=== PATIENT | male | born 1950 | race Caucasian/White ===

== ENCOUNTER 2017-03-11 21:40 | Emergency (ER) | payer MEDICARE, OTHER ==
[2017-03-11] MEDS ORDERED: Ketorolac 30 MG/ML SDV IVPUSH ONE (22:04)
[2017-03-11] MEDS ORDERED: Sodium Chloride 0.9% 10 ML Syringe FLUSH PRN (22:04)
[2017-03-11] MEDS ORDERED: Sodium Chloride 0.9% 2.5 ML Syringe FLUSH PRN (22:04)
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
[2017-03-11 23:08] LABS: CHLORIDE,CL 93 mmol/L (98-110); SODIUM,NA 134 mmol/L (136-146)
[2017-03-11] MEDS ORDERED: Iopamidol 755 Mg/ML 100 ML Bottle IVPUSH STA (23:22)
[2017-03-12 02:34] VITALS: BP 105/57
--- NOTE | 2017-03-13 11:04 | CR ---
EXAM DATE: 03/11/17 PATIENT'S AGE: 67 Patient: COURTNEY PAEZ Facility: [place], [place] Site . Site : 1950 Study: XRay Chest [id number]/15/2017 10:37:22 PM Ordering Physician: Barb May Final Report: INDICATION: Shortness of breath TECHNIQUE: Chest radiograph 1 view COMPARISON: None FINDINGS: The study is moderately limited by body habitus. Cardiovascular and mediastinum: The heart silhouette is normal in size and morphology. There is a convex density along the right paraspinal region at the level of the diaphragm which may represent a hiatal hernia. Lungs and pleural spaces: Minimal right basilar atelectasis is noted. A trace right pleural effusion may be present. No pneumothorax is identified. Bones and soft tissues: ORIF of multiple right-sided ribs are present with numerous metallic plates and overlying skin dain. IMPRESSION: 1. Minimal right basilar atelectasis is noted. A trace right pleural effusion may be present. 2. There is a convex density along the right paraspinal region at the level of the diaphragm which may represent a hiatal hernia. Dictated by Manuel Duffy MD @ 03/11/2017 11:02:57 PM Dictated by: Manuel Duffy MD @ 03/11/2017 23:03:02 (Electronic Signature) Report Signed by Proxy and Original Signed Document filed in the Medical Record. [facility]
--- NOTE | 2017-03-13 11:10 | CT ---
EXAM DATE: 03/11/17 PATIENT'S AGE: 67 Patient: COURTNEY PAEZ Facility: [place], [place] Site . Site : 1950 Study: CT Chest Angio PE study [id number]/16/2017 12:03:09 AM Ordering Physician: Barb May Final Report: INDICATION: Shortness of breath TECHNIQUE: CT chest pulmonary angiogram acquired with i.v. 47 mL and 45 mL Isovue 370 during two separate attempts. Coronal and sagittal reformats were obtained. COMPARISON: None FINDINGS: Cardiovascular structures: Trace pneumomediastinum is noted. The pulmonary arteries are unremarkable in appearance with no evidence of acute pulmonary embolism. The heart has an unremarkable appearance and size. No sign of aneurysm or dissection in the thoracic aorta. Mild coronary artery atherosclerotic calcifications are noted. Mediastinum and mitchell: There is a 1.2 cm AP window lymph node seen. Lungs: Mild right basilar compresses and adhesive atelectasis seen. Pleura and pericardium: A small gas collection is seen within the right pleural space on image 44. Mild loculated right pleural effusion seen. No significant pericardial effusion is present. Chest wall and axilla: Fluid collection over the right posterior chest wall is noted containing a punctate focus of gas. The fluid collection measures 10.2 x 5.6 cm in diameter and may communicate with the right pleural space and has a thin rim of peripheral enhancement seen. No mass or adenopathy seen. Subcutaneous emphysema is seen along the anterior chest wall. Bones: ORIF of multiple right-sided rib fractures with metallic plate is noted. Upper abdomen: Moderate fatty infiltration of the visualized liver seen. IMPRESSION: 1. No CT evidence of pulmonary embolism seen. 2. Mild loculated right pleural effusion seen. 3. There is a fluid collection containing a small focus of gas along the right posterolateral chest wall. This may represent a hematoma and communication with the adjacent right pleural space cannot be excluded. Clinical correlation is recommended to exclude infection of the fluid collection given the thin rim enhancement. 4. Mild mediastinal adenopathy present. 5. Mild pneumomediastinum and chest wall subcutaneous emphysema is seen which may be related to recent surgery. Dictated by Manuel Duffy MD @ 03/12/2017 12:20:11 AM Dictated by: Manuel Duffy MD @ 03/12/2017 00:20:28 (Electronic Signature) Report Signed by Proxy and Original Signed Document filed in the Medical Record. [facility]
== END 2017-03-12 01:10 | disposition home or self-care (01) ==
LOC: MW.ED 21:40
DX: J90 Pleural effusion, not elsewhere classified (principal); Z79.899 Other long term (current) drug therapy
CPT/HCPCS: 36415; 71010; 71275; 80053; 85025; 85610; 93005; 96374; 99285; J1885; Q9967; 99284

== ENCOUNTER 2017-04-21 09:22 | Emergency (ER) | payer MEDICARE, OTHER ==
[2017-04-21] MEDS ORDERED: Lidocaine 1% 20 ML MDV INJECT ONE (09:32)
--- NOTE | 2017-04-21 09:51 | EDM.PDOC ---
ED HPI GENERAL MEDICAL PROBLEM - General Chief Complaint: Head Injury Stated Complaint: UNK Time Seen by Provider: 04/21/17 09:42 - History of Present Illness INITIAL COMMENTS - FREE TEXT/NARRATIVE: HISTORY AND PHYSICAL: History of present illness: Patient is a 67-year-old white male with an extensive past medical history of present status post fall which she sustained a skin tear to his left upper extremity and a laceration to his left forehead there was no loss of consciousness there is no head or neck pain or trauma otherwise he denies chest pain palpitations and this is reported to be a pure mechanical fall. Review of systems: As per history of present illness and below otherwise all systems reviewed and negative. Past medical history: As per history of present illness and as reviewed below otherwise noncontributory. Surgical history: As per history of present illness and as reviewed below otherwise noncontributory. Social history: No reported history of drug or alcohol abuse. Family history: As per history of present illness and as reviewed below otherwise noncontributory. Physical exam: HEENT: Approximately 2.5 cm moderate to irregular laceration of left forehead, normocephalic, pupils reactive, negative for conjunctival pallor or scleral icterus, mucous membranes moist, throat clear, neck supple, nontender, trachea midline. Lungs: Clear to auscultation, breath sounds equal bilaterally, chest nontender. Heart: S1S2, regular, negative for clicks, rubs, or JVD. Abdomen: Soft, nondistended, nontender. Negative for masses or hepatosplenomegaly. Negative for costovertebral tenderness. Pelvis: Stable nontender. Genitourinary: Deferred. Rectal: Deferred. Extremities: Approximately 7 cm skin tear noted to his left proximal forearm, negative for cords or calf pain. Neurovascular unremarkable. Neuro: Awake, alert, follows commands moves all extremities at baseline per family limited but grossly nonfocal exam Diagnostics: CT brain Therapeutics: Patient was anesthetized 1% lidocaine irrigated with copious 0.9 normal saline and closed with 5-zero absorbable suture skin tear was cleansed Steri-Stripped and dressed appropriately Impression: #1 observation status post fall #2 head injury with facial laceration #3 skin tear left upper extremity Definitive disposition and diagnosis as appropriate pending reevaluation and review of above. Generalized Pain Score (Numeric/FACES): 2 - Related Data Allergies Allergy/AdvReac Type Severity Reaction Status Date / Time No Known Allergies Allergy Verified 04/21/17 09:24 Home Meds: Home Meds Fluticasone/Salmeterol [Advair 250-50 Diskus] 1 each IH BID 03/11/17 [History] Ipratropium/Albuterol Sulfate [Combivent Respimat Inhal [place]] 20 mcg IH ASDIRECTED 03/11/17 [History] Tiotropium [Spiriva HandiHaler] 18 mcg INH DAILY 03/11/17 [History] atorvaSTATin [Lipitor] 20 mg PO BEDTIME 03/11/17 [History] Acetaminophen [Tylenol Extra Strength] 100 mg PO BID PRN 04/21/17 [History] Amiodarone HCl [Pacerone] 200 mg PO BID 04/21/17 [History] Cyanocobalamin (Vitamin B12) [Vitamin B12] 1,000 mcg PO DAILY 04/21/17 [History] Fluticasone/Salmeterol [Advair Diskus 250-50] 1 each IH BID 04/21/17 [History] Magnesium Oxide 400 mg PO DAILY 04/21/17 [History] Metoprolol Tartrate 12.5 mg PO BID 04/21/17 [History] Olmesartan [Benicar] 20 mg PO DAILY 04/21/17 [History] traMADol [Ultram] 50 mg PO Q6HR PRN 04/21/17 [History] Past Medical History HEENT History: Reports: Cataract, Impaired Vision Cardiovascular History: Reports: High Cholesterol, Hypertension Respiratory History: Reports: COPD, Pneumothorax, SOB Neurological History: Reports: Head Trauma, Neuropathy, Peripheral Psychiatric History: Reports: None Endocrine/Metabolic History: Reports: Obesity/BMI 30+ Hematologic History: Reports: None Immunologic History: Reports: None Oncologic (Cancer) History: Reports: None - Infectious Disease History Infectious Disease History: Reports: Chicken Pox, Measles, MRSA, Mumps - Past Surgical History Head Surgeries/Procedures: Reports: None Musculoskeletal Surgical History: Reports: Other (See Below) Other Musculoskeletal Surgeries/Procedures:: multiple rib fractures Social & Family History - Family History Family Medical History: Noncontributory - Tobacco Use Smoking Status *Q: Former Smoker Used Tobacco, but Quit: Yes Month Tobacco Last Used: 1970 - Caffeine Use Caffeine Use: Reports: Coffee - Recreational Drug Use Recreational Drug Use: No ED ROS GENERAL - Review of Systems Review Of Systems: ROS reveals no pertinent complaints other than HPI. ED EXAM, HEAD INJURY - Physical Exam Exam: See Below (See dictation) Course - Vital Signs Last Recorded V/S: Last Vital Signs Temp 37.0 C 04/21/17 09:21 Pulse 81 04/21/17 10:15 Resp 17 04/21/17 10:15 BP 139/85 04/21/17 10:15 Pulse Ox 92 L 04/21/17 10:15 - Orders/Labs/Meds Meds: Medications Discontinued Medications Generic Name Dose Route Start Last Admin Trade Name Frerhoda PRN Reason Stop Dose Admin Lidocaine HCl 20 ml 04/21/17 09:32 04/21/17 10:16 Xylocaine 1% INJECT 04/21/17 09:33 20 ml ONETIME ONE Administration Departure - Departure Time of Disposition: 11:03 Disposition: Home, Self-Care 01 Condition: good Clinical Impression: Head injury, Laceration, Skin tear - Discharge Information Forms: ED Department Discharge Additional Instructions: The following information is given to patients seen in the emergency department who are being discharged to home. This information is to outline your options for follow-up care. We provide all patients seen in our emergency department with a follow-up referral. The need for follow-up, as well as the timing and circumstances, are variable depending upon the specifics of your emergency department visit. If you don't have a primary care physician on staff, we will provide you with a referral. We always advise you to contact your personal physician following an emergency department visit to inform them of the circumstance of the visit and for follow-up with them and/or the need for any referrals to a consulting specialist. The emergency department will also refer you to a specialist when appropriate. This referral assures that you have the opportunity for followup care with a specialist. All of these measure are taken in an effort to provide you with optimal care, which includes your followup. Under all circumstances we always encourage you to contact your private physician who remains a resource for coordinating your care. When calling for followup care, please make the office aware that this follow-up is from your recent emergency room visit. If for any reason you are refused follow-up, please contact the [facility] emergency department at and asked to speak to the emergency department charge nurse. Followup primary medical doctor one to 2 days return as needed as discussed
--- NOTE | 2017-04-21 10:40 | CT ---
EXAMINATION: Non contrast CT head. Coronal and sagittal reformats. HISTORY: Fall FINDINGS: No evidence of intra or extra axial hemorrhage, mass, midline shift, hydrocephalus or edema. No hypoattenuation changes in the major vascular territories to suggest acute infarct. No abnormal intracranial calcifications are detected. No evidence of substantial vascular calcifica tions. Paranasal sinuses and mastoid air cells are well aerated without substantial findings. Mild left barr praorbital subcutaneous soft tissue swelling. Pituitary fossa appears unremarkable. The orbits and globes are symmetric. Calvarium is intact. No evidence of skull fracture. IMPRESSION: No acute intracranial findings.
[2017-04-21 11:06] VITALS: BP 144/81
== END 2017-04-21 11:18 | disposition home or self-care (01) ==
LOC: MW.ED 09:22
DX: S01.81XA Laceration without foreign body of other part of head, initial encounter (principal); S41.112A Laceration without foreign body of left upper arm, initial encounter; Z91.81 History of falling; I10 Essential (primary) hypertension; E66.9 Obesity, unspecified; G62.9 Polyneuropathy, unspecified; J44.9 Chronic obstructive pulmonary disease, unspecified; E78.00 Pure hypercholesterolemia, unspecified; Z87.891 Personal history of nicotine dependence; Z79.899 Other long term (current) drug therapy; W19.XXXA Unspecified fall, initial encounter
CPT/HCPCS: 12001; 70450; 70450-26; 99282; 99284-25

== ENCOUNTER 2017-04-26 14:50 | Emergency (ER) | payer MEDICARE, OTHER ==
[2017-04-26] MEDS ORDERED: QUEtiapine 25 MG Tab PO ONE (15:20)
--- NOTE | 2017-04-26 15:26 | EDM.PDOC ---
ED HPI GENERAL MEDICAL PROBLEM - General Chief Complaint: Behavioral/Psych Stated Complaint: AMBULANCE Time Seen by Provider: 04/26/17 15:03 - History of Present Illness INITIAL COMMENTS - FREE TEXT/NARRATIVE: HISTORY AND PHYSICAL: History of present illness: Patient is 67-year-old male who presents from longterm having expressed suicidal threats. On arrival here patient is well-known to me acknowledges that he got their attention but does not have any intention of self-harm Review of systems: As per history of present illness and below otherwise all systems reviewed and negative. Past medical history: As per history of present illness and as reviewed below otherwise noncontributory. Surgical history: As per history of present illness and as reviewed below otherwise noncontributory. Social history: No reported history of drug or alcohol abuse. Family history: As per history of present illness and as reviewed below otherwise noncontributory. Physical exam: HEENT: Healing well left forehead from recent fall with laceration and suture normocephalic, pupils reactive, negative for conjunctival pallor or scleral icterus, mucous membranes moist, throat clear, neck supple, nontender, trachea midline. Lungs: Clear to auscultation, breath sounds equal bilaterally, chest nontender. Heart: S1S2, regular, negative for clicks, rubs, or JVD. Abdomen: Soft, nondistended, nontender. Negative for masses or hepatosplenomegaly. Negative for costovertebral tenderness. Pelvis: Stable nontender. Genitourinary: Deferred. Rectal: Deferred. Extremities: Skin tear from prior injury with wound dressing in place negative for cords or calf pain. Neurovascular unremarkable. Neuro: Awake, alert, follows commands moves all extremities Limited but grossly nonfocal exam Diagnostics: None Therapeutics: Seroquel 25 mg by mouth Impression: #1 medical screening exam Definitive disposition and diagnosis as appropriate pending reevaluation and review of above. - Related Data Allergies Allergy/AdvReac Type Severity Reaction Status Date / Time No Known Allergies Allergy Verified 04/26/17 15:04 Home Meds: Home Meds Fluticasone/Salmeterol [Advair 250-50 Diskus] 1 each IH BID 03/11/17 [History] Ipratropium/Albuterol Sulfate [Combivent Respimat Inhal [place]] 20 mcg IH ASDIRECTED 03/11/17 [History] Tiotropium [Spiriva HandiHaler] 18 mcg INH DAILY 03/11/17 [History] atorvaSTATin [Lipitor] 20 mg PO BEDTIME 03/11/17 [History] Acetaminophen [Tylenol Extra Strength] 100 mg PO BID PRN 04/21/17 [History] Amiodarone HCl [Pacerone] 200 mg PO BID 04/21/17 [History] Cyanocobalamin (Vitamin B12) [Vitamin B12] 1,000 mcg PO DAILY 04/21/17 [History] Fluticasone/Salmeterol [Advair Diskus 250-50] 1 each IH BID 04/21/17 [History] Magnesium Oxide 400 mg PO DAILY 04/21/17 [History] Metoprolol Tartrate 12.5 mg PO BID 04/21/17 [History] Olmesartan [Benicar] 20 mg PO DAILY 04/21/17 [History] traMADol [Ultram] 50 mg PO Q6HR PRN 04/21/17 [History] Past Medical History HEENT History: Reports: Cataract, Impaired Vision Cardiovascular History: Reports: High Cholesterol, Hypertension Respiratory History: Reports: COPD, Pneumothorax, SOB Gastrointestinal History: Reports: None Genitourinary History: Reports: None Musculoskeletal History: Reports: None Neurological History: Reports: Head Trauma, Neuropathy, Peripheral Psychiatric History: Reports: None Endocrine/Metabolic History: Reports: Obesity/BMI 30+ Hematologic History: Reports: None Immunologic History: Reports: None Oncologic (Cancer) History: Reports: None Dermatologic History: Reports: None - Infectious Disease History Infectious Disease History: Reports: None - Past Surgical History Head Surgeries/Procedures: Reports: None HEENT Surgical History: Reports: None Cardiovascular Surgical History: Reports: None Respiratory Surgical History: Reports: None GI Surgical History: Reports: None Male Surgical History: Reports: None Endocrine Surgical History: Reports: None Neurological Surgical History: Reports: None Musculoskeletal Surgical History: Reports: Other (See Below) Other Musculoskeletal Surgeries/Procedures:: multiple rib fractures Dermatological Surgical History: Reports: None Social & Family History - Family History Family Medical History: Noncontributory - Tobacco Use Smoking Status *Q: Never Smoker Used Tobacco, but Quit: Yes Month Tobacco Last Used: 1969 Second Hand Smoke Exposure: No - Caffeine Use Caffeine Use: Reports: Coffee - Recreational Drug Use Recreational Drug Use: No ED ROS GENERAL - Review of Systems Review Of Systems: ROS reveals no pertinent complaints other than HPI. ED EXAM, GENERAL - Physical Exam Exam: See Below (See dictation) Course - Vital Signs Text/Narrative:: Discuss case with Dr. Arias and spouse regarding current circumstances at this time all in agreement including the patient to return to longterm with followup with Dr. Arias in a.m. discussion will occur then regarding ultimate disposition and related social and medical issues Last Recorded V/S: Last Vital Signs Temp 36.2 C 04/26/17 15:01 Pulse 78 04/26/17 15:01 Resp 16 04/26/17 15:01 BP 124/70 04/26/17 15:01 Pulse Ox 98 04/26/17 15:01 Departure - Departure Time of Disposition: 15:26 Disposition: Home, Self-Care 01 Condition: good Clinical Impression: Encounter for medical screening examination - Discharge Information Forms: ED Department Discharge Additional Instructions: The following information is given to patients seen in the emergency department who are being discharged to home. This information is to outline your options for follow-up care. We provide all patients seen in our emergency department with a follow-up referral. The need for follow-up, as well as the timing and circumstances, are variable depending upon the specifics of your emergency department visit. If you don't have a primary care physician on staff, we will provide you with a referral. We always advise you to contact your personal physician following an emergency department visit to inform them of the circumstance of the visit and for follow-up with them and/or the need for any referrals to a consulting specialist. The emergency department will also refer you to a specialist when appropriate. This referral assures that you have the opportunity for followup care with a specialist. All of these measure are taken in an effort to provide you with optimal care, which includes your followup. Under all circumstances we always encourage you to contact your private physician who remains a resource for coordinating your care. When calling for followup care, please make the office aware that this follow-up is from your recent emergency room visit. If for any reason you are refused follow-up, please contact the [facility] emergency department at and asked to speak to the emergency department charge nurse. Followup Dr. Arias in a.m. return as needed as discussed
[2017-04-26 15:39] VITALS: BP 119/76
== END 2017-04-26 15:36 | disposition home or self-care (01) ==
LOC: MW.ED 14:50
DX: Z13.9 Encounter for screening, unspecified (principal); I10 Essential (primary) hypertension; E78.00 Pure hypercholesterolemia, unspecified; J44.9 Chronic obstructive pulmonary disease, unspecified; E66.9 Obesity, unspecified; Z68.35 Body mass index [BMI] 35.0-35.9, adult; Z79.899 Other long term (current) drug therapy
CPT/HCPCS: 99284; A9270; 99283

== ENCOUNTER 2017-05-04 21:01 | Inpatient (IN) | payer MEDICARE, OTHER ==
[2017-05-04] MEDS ORDERED: Sodium Chloride 0.9% 1,000 ML IV ONE (21:25)
[2017-05-04] MEDS ORDERED: Acetaminophen 325 MG Tab PO ONE (21:29)
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
[2017-05-04] MEDS ORDERED: Cefepime 2 GM in Premix Bag 1 BAG IV ONE (21:37)
[2017-05-04 22:10] LABS: CHLORIDE,CL 96 mmol/L (98-110); SODIUM,NA 130 mmol/L (136-146)
[2017-05-04] MEDS ORDERED: Vancomycin 1 GM AdvVial ONE (22:14)
[2017-05-04] MEDS ORDERED: Sodium Chloride 0.9% 250 ML ONE (22:16)
[2017-05-05] MEDS: Sodium Chloride 0.9% 1,000 ML IV SCH ×4 (00:27→12:58)
[2017-05-05] MEDS ORDERED: Sodium Chloride 0.9% 1,000 ML IV SCH ×2 (01:30→01:45)
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
[2017-05-05] MEDS ORDERED: Albumin 5% 250 ML IV ONE (03:35)
[2017-05-05] MEDS: Cefepime 2 GM in Premix Bag 1 BAG IV SCH ×2 (09:05→21:39)
[2017-05-05] MEDS ORDERED: Sodium Chloride 0.9% 500 ML IV SCH ×2 (09:30→14:45)
[2017-05-05] MEDS: Heparin Sodium 5,000 Units/ML Vial SUBCUT SCH ×2 (10:06→21:15)
--- NOTE | 2017-05-05 11:09 | CR ---
EXAM DATE: 05/04/17 PATIENT'S AGE: 67 Patient: COURTNEY PAEZ Facility: [place], [place] Site . Site : [id number] Study: XRay Chest [id number]/8/2017 10:20:54 PM Ordering Physician: Reji Tracey Final Report: INDICATION: Fever TECHNIQUE: Chest 1 view. COMPARISON: 03/11/2017 FINDINGS: Cardiovascular and mediastinum: Heart size and vasculature are normal in caliber and appearance. Mediastinum is within normal limits. Lungs and pleural space: Lungs are clear. No sign of infiltrate or mass. No sign of pleural effusion. No pneumothorax. Bones and soft tissues: Multiple right-sided rib plates. IMPRESSION: No evidence for pneumonia. Dictated by Nawaf Agarwal MD @ 05/04/2017 10:36:41 PM Dictated by: Nawaf Agarwal MD @ 05/04/2017 22:36:53 (Electronic Signature) Report Signed by Proxy. [facility]
--- NOTE | 2017-05-05 14:05 | CT ---
CT of the abdomen and pelvis without contrast. HISTORY: Pain TECHNIQUE: Axial CT images were obtained of the abdomen and pelvis without contrast. Coronal and sag ittal reconstructions obtained. FINDINGS: Several right-sided rib fractures are partially visualized with screw and plate hardware. There is a trace right pleural effusion. There is moderate fatty infiltration of the liver. Spleen, adrenal glands, and pancreas appear unrem arkable for noncontrast examination. The gallbladder is contracted. There is no bulky retroperitonea l lymphadenopathy. No abdominal ascites. Vascular calcifications are noted. Tiny fat-containing umbi lical hernia. There are no calcifications noted within the kidneys or along the courses of the ureters bilaterally . There is a cyst within the left kidney. The large and small bowel are normal in caliber without evidence of obstruction. The appendix appear s normal. There is no bulky pelvic lymphadenopathy. No free fluid. No free air. There is noted withi n the urinary bladder, correlate with recent instrumentation. There is a mild compression deformity along the superior endplate of L1. IMPRESSION: 1. Multiple right-sided rib fractures with screw and plate hardware. 2. Small right pleural effusion. 3. Moderate severe fatty infiltration of the liver. 4. Air within the urinary bladder, correlate with recent instrumentation. 5. Otherwise no acute findings within the abdomen or pelvis.
[2017-05-05] MEDS: Piperacillin/Tazobactam 3.375 GM in Sodium Chloride 0.9% 50 ML IV SCH ×2 (17:02→23:52)
[2017-05-05] MEDS ORDERED: Loperamide 2 MG Cap PO PRN (20:20)
--- NOTE | 2017-05-05 20:44 | PCM.PN ---
- General Info Date of Service: 05/05/17 Admission Dx/Problem (Free Text): Sepsis Subjective Update: Alert and orientated. No pain. Having some diarrhea, no chest pain, palpitations, headache, nausea, abdominal pain. Is short of breath. Functional Status: Reports: pain controlled, tolerating diet - Review of Systems General: Reports: Fever, Weakness, Fatigue, Malaise, Chills HEENT: Denies: headaches, sinus congestion, sore throat Pulmonary: Reports: shortness of breath. Denies: cough, sputum, wheezing Cardiovascular: Denies: Chest Pain, Palpitations, Edema Gastrointestinal: Reports: Abdominal pain. Denies: Diarrhea, Nausea, Vomiting Genitourinary: Reports: dysuria, pain, hematuria Musculoskeletal: Denies: leg pain Skin: Denies: cyanosis Neurological: Denies: Confusion, Dizziness, Headache Psychiatric: Denies: confusion - Patient Data Vitals - most recent: Last Vital Signs Temp 36.6 C 05/05/17 07:00 Pulse 93 05/05/17 18:00 Resp 19 05/05/17 18:00 BP 106/55 L 05/05/17 18:00 Pulse Ox 97 05/05/17 18:00 Weight - most recent: 108 kg I&O - last 24 hours: Intake & Output 05/05/17 05/05/17 05/05/17 06:59 14:59 22:59 Intake Total 1999 1499 2050 Output Total 200 1300 Balance 1800 1499 750 Lab Results last 24 hrs: Laboratory Results - last 24 hr 05/05/17 05/05/17 05/05/17 Range/Units 02:44 02:44 02:44 WBC 11.88 H (4.0-11.0) K/uL RBC 2.90 L (4.50-5.90) M/uL Hgb 7.9 L (13.0-17.0) g/dL Hct 24.4 L (38.0-50.0) % MCV 84.1 (80.0-98.0) fL MCH 27.2 (27.0-32.0) pg MCHC 32.4 (31.0-37.0) g/dL RDW Std Deviation 52.4 (28.0-62.0) fl RDW Coeff of Jeannie 17 H (11.0-15.0) % Plt Count 250 (150-400) K/uL MPV 9.50 (7.40-12.00) fL Neut % (Auto) 84.2 H (48.0-80.0) % Lymph % (Auto) 6.4 L (16.0-40.0) % [place] % (Auto) 9.0 (0.0-15.0) % Eos % (Auto) 0.2 (0.0-7.0) % Baso % (Auto) 0.2 (0.0-1.5) % Neut # (Auto) 10.0 H (1.4-5.7) K/uL Lymph # (Auto) 0.8 (0.6-2.4) K/uL [place] # (Auto) 1.1 H (0.0-0.8) K/uL Eos # (Auto) 0.0 (0.0-0.7) K/uL Baso # (Auto) 0.0 (0.0-0.1) K/uL Nucleated RBC % 0.0 /100WBC Nucleated RBCs # 0 K/uL Lactate 0.9 (0.20-2.00) mmol/L Sodium 133 L (136-146) mmol/L Potassium 4.5 (3.5-5.1) mmol/L Chloride 105 (98-110) mmol/L Carbon Dioxide 20 L (21-31) mmol/L BUN 25 H (6.0-23.0) mg/dL Creatinine 2.0 H (0.6-1.5) mg/dL Est Cr Clr Drug Dosing 34.74 mL/min Estimated GFR (MDRD) 33.3 ml/min Glucose 103 (60-110) mg/dL Calcium 6.8 L (8.8-10.8) mg/dL Total Bilirubin 0.5 (0.1-1.5) mg/dL AST 20 (5-40) IU/L ALT 18 (8-54) IU/L Alkaline Phosphatase 135 (40-150) Total Protein 4.5 L (6.0-8.0) g/dL Albumin 1.8 L (3.4-4.8) g/dL Globulin 2.7 (2.0-3.5) g/dL Albumin/Globulin Ratio 0.7 L (1.3-2.8) Blood Type Antibody Screen Crossmatch 06/09/17 06/09/17 06/09/17 Range/Units 09:10 14:51 16:53 WBC (4.0-11.0) K/uL RBC (4.50-5.90) M/uL Hgb (13.0-17.0) g/dL Hct (38.0-50.0) % MCV (80.0-98.0) fL MCH (27.0-32.0) pg MCHC (31.0-37.0) g/dL RDW Std Deviation (28.0-62.0) fl RDW Coeff of Jeannie (11.0-15.0) % Plt Count (150-400) K/uL MPV (7.40-12.00) fL Neut % (Auto) (48.0-80.0) % Lymph % (Auto) (16.0-40.0) % [place] % (Auto) (0.0-15.0) % Eos % (Auto) (0.0-7.0) % Baso % (Auto) (0.0-1.5) % Neut # (Auto) (1.4-5.7) K/uL Lymph # (Auto) (0.6-2.4) K/uL [place] # (Auto) (0.0-0.8) K/uL Eos # (Auto) (0.0-0.7) K/uL Baso # (Auto) (0.0-0.1) K/uL Nucleated RBC % /100WBC Nucleated RBCs # K/uL Lactate 2.6 H 1.3 (0.20-2.00) mmol/L Sodium (136-146) mmol/L Potassium (3.5-5.1) mmol/L Chloride (98-110) mmol/L Carbon Dioxide (21-31) mmol/L BUN (6.0-23.0) mg/dL Creatinine (0.6-1.5) mg/dL Est Cr Clr Drug Dosing mL/min Estimated GFR (MDRD) ml/min Glucose (60-110) mg/dL Calcium (8.8-10.8) mg/dL Total Bilirubin (0.1-1.5) mg/dL AST (5-40) IU/L ALT (8-54) IU/L Alkaline Phosphatase (40-150) Total Protein (6.0-8.0) g/dL Albumin (3.4-4.8) g/dL Globulin (2.0-3.5) g/dL Albumin/Globulin Ratio (1.3-2.8) Blood Type A POSITIVE Antibody Screen NEGATIVE Crossmatch See Detail Med Orders - Current: Current Medications Amiodarone HCl (Cordarone) 200 mg PO BID [facility] Heparin Sodium (Porcine) (Heparin Sodium) 5,000 units SUBCUT Q12HR [facility] Last Admin: 05/05/17 10:06 Dose: 5,000 units Cefepime HCl 2 gm/ Premix 50 mls @ 100 mls/hr IV Q12H [facility] Last Admin: 05/05/17 09:05 Dose: 100 mls/hr Sodium Chloride (Normal Saline) 1,000 mls @ 125 mls/hr IV ASDIRECTED [facility] Last Admin: 05/05/17 12:58 Dose: 125 mls/hr Vancomycin HCl 1 gm/Vancomycin HCl 250 mg/ Sodium Chloride 500 mls @ 333.333 mls/hr IV Q24H JOSE Sodium Chloride (Normal Saline) 500 mls @ 999 mls/hr IV .BOLUS [facility] Last Admin: 05/05/17 09:45 Dose: 999 mls/hr Sodium Chloride (Normal Saline) 500 mls @ 999 mls/hr IV .BOLUS [facility] Last Admin: 05/05/17 14:45 Dose: 999 mls/hr Piperacillin Sod/Tazobactam (Sod 3.375 gm/ Sodium Chloride) 50 mls @ 100 mls/ hr IV Q6H [facility] Last Admin: 05/05/17 17:02 Dose: 100 mls/hr Loperamide HCl (Imodium) 2 mg PO Q4H PRN PRN Reason: Diarrhea Fluticasone/Salmeterol (Advair Diskus 250-50) 1 puff INH BID [facility] Vancomycin HCl (Pharmacy To Dose - Vancomycin) 1 dose .XX ASDIRECTED [facility] Discontinued Medications Acetaminophen (Tylenol) 650 mg PO NOW ONE Stop: 05/04/17 21:30 Last Admin: 05/04/17 22:01 Dose: 650 mg Sodium Chloride (Normal Saline) 1,000 mls @ 999 mls/hr IV .Bolus ONE Stop: 05/04/17 22:25 Last Admin: 05/04/17 22:00 Dose: 999 mls/hr Cefepime HCl 2 gm/ Premix 50 mls @ 100 mls/hr IV ONETIME ONE Stop: 05/04/17 22:06 Last Admin: 05/04/17 22:43 Dose: 100 mls/hr Vancomycin HCl 1,000 mg/ (Dextrose/Water) 250 mls @ 167 mls/hr IV ONETIME ONE Stop: 05/04/17 23:06 Last Admin: 05/04/17 22:42 Dose: Not Given Sodium Chloride (Normal Saline) Confirm Administered Dose 250 mls @ as directed .ROUTE .STK-MED ONE Stop: 05/04/17 22:17 Last Admin: 05/04/17 22:24 Dose: 250 ml Sodium Chloride (Normal Saline) 1,000 mls @ 999 mls/hr IV ASDIRECTED [facility] Last Infusion: 05/05/17 01:28 Dose: Infused Sodium Chloride (Normal Saline) 1,000 mls @ 999 mls/hr IV .BOLUS JOSE Sodium Chloride (Normal Saline) 1,000 mls @ 999 mls/hr IV ASDIRECTED [facility] Last Admin: 05/05/17 01:45 Dose: 999 mls/hr Albumin Human (Buminate 5%) 250 mls @ 250 mls/hr IV ONETIME ONE Stop: 05/05/17 04:34 Last Admin: 05/05/17 04:22 Dose: 250 mls/hr Vancomycin HCl (Vancocin) Confirm Administered Dose 1 gm .ROUTE .STK-MED ONE Stop: 05/04/17 22:15 Last Admin: 05/04/17 22:24 Dose: 1 gm - Exam Quality Assessment: supplemental oxygen, urine catheter, DVT prophylaxis General: alert, oriented, cooperative, no acute distress HEENT: Pupils equal, Pupils reactive, EOMI, Mucous membr. moist/pink Neck: supple Lungs: Normal respiratory effort Cardiovascular: Regular Rate, Regular Rhythm Abdomen: bowel sounds present, soft, no tenderness, no distension Back Exam: Normal Inspection. No: CVA Tenderness (L), CVA Tenderness (R) Extremities: no edema, normal pulses Peripheral Pulses: 2+: Radial (L), Radial (R), Posterior Tibial (L), Posterior Tibial (R), Dorsalis Pedis (L), Dorsalis Pedis (R) Skin: warm, dry, intact Neurological: no new focal deficit Psy/Mental Status: alert, normal affect, normal mood - Problem List & Annotations (1) Acute kidney injury SNOMED Code(s): 23611462 Code(s): N17.9 - ACUTE KIDNEY FAILURE, UNSPECIFIED Status: Acute Priority : High Current Visit: Yes (2) Leukocytosis SNOMED Code(s): 209628405, 656153106 Code(s): D72.829 - ELEVATED WHITE BLOOD CELL COUNT, UNSPECIFIED Status: Acute Priority: High Current Visit: Yes (3) Sepsis SNOMED Code(s): 23059268 Code(s): A41.9 - SEPSIS, UNSPECIFIED ORGANISM Status: Acute Priority: High Current Visit: Yes Qualifiers: Sepsis type: sepsis due to unspecified organism Qualified Code(s): A41.9 - Sepsis, unspecified organism (4) UTI (urinary tract infection) SNOMED Code(s): 65326475 Code(s): N39.0 - URINARY TRACT INFECTION, SITE NOT SPECIFIED Status: Acute Priority: High Current Visit: Yes Qualifiers: Urinary tract infection type: acute cystitis Hematuria presence: with hematuria Qualified Code(s): N30.01 - Acute cystitis with hematuria - Problem List Review Problem List Initiated/Reviewed/Updated: Yes - My Orders Last 24 Hours: My Active Orders 05/05/17 09:30 Sodium Chloride 0.9% [Normal Saline] 500 ml IV .BOLUS 05/05/17 14:45 Sodium Chloride 0.9% [Normal Saline] 500 ml IV .BOLUS 05/05/17 16:26 Transfuse PRBC [Transfuse Red Blood Cells] [COMM] Stat Transfuse Red Blood Cells [COMM] Stat 05/05/17 16:30 Piperacillin/Tazobactam [Piperacil-Tazobact] 3.375 gm Sodium Chloride 0.9% [ Normal Saline] 50 ml IV Q6H 05/05/17 16:53 RED BLOOD CELLS LP [BBK] Routine TYPE AND SCREEN [BBK] Routine 05/05/17 20:20 Loperamide [Imodium] 2 mg PO Q4H PRN 05/05/17 21:00 Amiodarone [Cordarone] 200 mg PO BID Fluticasone/Salmeterol [Advair Diskus 250-50] 1 puff INH BID - Plan Plan:: 67 yo male admitted 05/05/17 for sepsis suspect UTI source with PMH of P-afib, htn , and COPD Sepsis: Suspect previous unresolved UTI. Culture results from [facility] from previous UTI positive for Klebsiella pneumonia only susceptible to Nitrofurantoin and Zosyn. Will change abx to Zosyn IV renally dosed. Lactic acidosis resolved with total of 1L NS bolus this AM. Pressures borderline hypotensive with tachycardia will cont. NS IVF at 125. Anemia: Hgb 7.9 no significant cardiac history but secondary to labile pressures not responding to IVF boluses will transfuse 2 units pRBC's and monitor. P-afib: Restart home Amiodarone monitor Diarrhea: C-diff ordered as previous abx. Imodium ordered. COPD: Restart home inhaler may benefit from duonebs if continue episodes of sob. VTE: SCD, Heparin
[2017-05-05] MEDS: Amiodarone 200 MG Tab PO SCH (21:15)
[2017-05-05] MEDS: Fluticasone/Salmeterol 250-50 MCG Inhalation Powder 14/Diskus INH SCH (21:34)
[2017-05-05] MEDS ORDERED: Vancomycin 1 GM, Vancomycin 250 MG in Sodium Chloride 0.9% 500 ML IV SCH (22:00)
[2017-05-06] MEDS: metroNIDAZOLE 250 MG Tab PO SCH ×4 (00:43→23:47)
[2017-05-06] MEDS ORDERED: traMADol 50 MG Tab PO PRN (02:51)
[2017-05-06] MEDS: Acetaminophen 500 MG Tab PO PRN ×2 (03:01→22:52)
[2017-05-06] MEDS: Sodium Chloride 0.9% 1,000 ML IV SCH (04:03)
[2017-05-06] MEDS: Piperacillin/Tazobactam 3.375 GM in Sodium Chloride 0.9% 50 ML IV SCH (04:05)
[2017-05-06] MEDS: Fluticasone/Salmeterol 250-50 MCG Inhalation Powder 14/Diskus INH SCH ×2 (08:08→20:12)
[2017-05-06] MEDS: Amiodarone 200 MG Tab PO SCH ×2 (08:13→20:16)
[2017-05-06] MEDS: Heparin Sodium 5,000 Units/ML Vial SUBCUT SCH ×2 (08:13→20:15)
[2017-05-06] MEDS: Piperacillin/Tazobactam 4.5 GM in Sodium Chloride 0.9% 100 ML IV SCH ×3 (10:15→21:54)
[2017-05-06] MEDS: Hydrocolloid Dressing 4x4 Bandage TOP PRN (11:38)
--- NOTE | 2017-05-06 11:44 | PCM.PN ---
- Review of Systems Systems Review Comment:: denies shortness of breath, feeling better, no loose stool today. - Patient Data Vitals - most recent: Last Vital Signs Temp 36.4 C 05/06/17 11:24 Pulse 91 05/05/17 20:37 Resp 20 05/06/17 11:24 BP 122/73 05/06/17 11:24 Pulse Ox 95 05/06/17 11:24 Weight - most recent: 89 kg I&O - last 24 hours: Intake & Output 05/05/17 05/06/17 05/06/17 22:59 06:59 14:59 Intake Total 2112 4247 100 Output Total 1300 2150 Balance 812 2097 100 Lab Results last 24 hrs: Laboratory Results - last 24 hr 05/05/17 05/05/17 05/06/17 Range/Units 14:51 16:53 04:48 WBC 8.02 (4.0-11.0) K/uL RBC 3.47 L (4.50-5.90) M/uL Hgb 9.4 L (13.0-17.0) g/dL Hct 29.0 L (38.0-50.0) % MCV 83.6 (80.0-98.0) fL MCH 27.1 (27.0-32.0) pg MCHC 32.4 (31.0-37.0) g/dL RDW Std Deviation 50.1 (28.0-62.0) fl RDW Coeff of Jeannie 16 H (11.0-15.0) % Plt Count 218 (150-400) K/uL MPV 9.50 (7.40-12.00) fL Neut % (Auto) 78.3 (48.0-80.0) % Lymph % (Auto) 9.7 L (16.0-40.0) % [place] % (Auto) 10.5 (0.0-15.0) % Eos % (Auto) 1.1 (0.0-7.0) % Baso % (Auto) 0.4 (0.0-1.5) % Neut # (Auto) 6.3 H (1.4-5.7) K/uL Lymph # (Auto) 0.8 (0.6-2.4) K/uL [place] # (Auto) 0.8 (0.0-0.8) K/uL Eos # (Auto) 0.1 (0.0-0.7) K/uL Baso # (Auto) 0.0 (0.0-0.1) K/uL Nucleated RBC % 0.0 /100WBC Nucleated RBCs # 0 K/uL Lactate 1.3 (0.20-2.00) mmol/L Sodium (136-146) mmol/L Potassium (3.5-5.1) mmol/L Chloride (98-110) mmol/L Carbon Dioxide (21-31) mmol/L BUN (6.0-23.0) mg/dL Creatinine (0.6-1.5) mg/dL Est Cr Clr Drug Dosing mL/min Estimated GFR (MDRD) ml/min Glucose (60-110) mg/dL Calcium (8.8-10.8) mg/dL Blood Type A POSITIVE Antibody Screen NEGATIVE Crossmatch See Detail 05/06/17 05/06/17 Range/Units 04:48 04:48 WBC (4.0-11.0) K/uL RBC (4.50-5.90) M/uL Hgb (13.0-17.0) g/dL Hct (38.0-50.0) % MCV (80.0-98.0) fL MCH (27.0-32.0) pg MCHC (31.0-37.0) g/dL RDW Std Deviation (28.0-62.0) fl RDW Coeff of Jeannie (11.0-15.0) % Plt Count (150-400) K/uL MPV (7.40-12.00) fL Neut % (Auto) (48.0-80.0) % Lymph % (Auto) (16.0-40.0) % [place] % (Auto) (0.0-15.0) % Eos % (Auto) (0.0-7.0) % Baso % (Auto) (0.0-1.5) % Neut # (Auto) (1.4-5.7) K/uL Lymph # (Auto) (0.6-2.4) K/uL [place] # (Auto) (0.0-0.8) K/uL Eos # (Auto) (0.0-0.7) K/uL Baso # (Auto) (0.0-0.1) K/uL Nucleated RBC % /100WBC Nucleated RBCs # K/uL Lactate 0.5 (0.20-2.00) mmol/L Sodium 135 L (136-146) mmol/L Potassium 3.5 (3.5-5.1) mmol/L Chloride 108 (98-110) mmol/L Carbon Dioxide 18 L (21-31) mmol/L BUN 16 (6.0-23.0) mg/dL Creatinine 1.3 (0.6-1.5) mg/dL Est Cr Clr Drug Dosing 53.45 mL/min Estimated GFR (MDRD) 54.7 ml/min Glucose 85 (60-110) mg/dL Calcium 6.9 L (8.8-10.8) mg/dL Blood Type Antibody Screen Crossmatch [place]bron Results last 24 hrs: Microbiology 05/05/17 21:30 Clostridium difficile Toxin A&B (M) - Final Stool / Feces Positive C. Diff Antigen Med Orders - Current: Current Medications Acetaminophen (Tylenol Extra Strength) 1,000 mg PO BID PRN PRN Reason: Pain Last Admin: 05/06/17 03:01 Dose: 1,000 mg Amiodarone HCl (Cordarone) 200 mg PO BID [facility] Last Admin: 05/06/17 08:13 Dose: 200 mg Heparin Sodium (Porcine) (Heparin Sodium) 5,000 units SUBCUT Q12HR [facility] Last Admin: 05/06/17 08:13 Dose: 5,000 units Sodium Chloride (Normal Saline) 1,000 mls @ 125 mls/hr IV ASDIRECTED [facility] Last Admin: 05/06/17 04:03 Dose: 125 mls/hr Piperacillin Sod/Tazobactam (Sod 4.5 gm/ Sodium Chloride) 100 mls @ 200 mls/hr IV Q6H [facility] Last Admin: 05/06/17 10:15 Dose: 200 mls/hr Metronidazole (Metronidazole) 500 mg PO Q8H [facility] Last Admin: 05/06/17 08:13 Dose: 500 mg Fluticasone/Salmeterol (Advair Diskus 250-50) 1 puff INH BID [facility] Last Admin: 05/06/17 08:08 Dose: 1 puff Tramadol HCl (Ultram) 100 mg PO Q6HR PRN PRN Reason: Pain Wound Care/Dressing Products (Duoderm Cgf) 1 each TOP DAILY PRN PRN Reason: pressure ulcer Last Admin: 05/06/17 11:38 Dose: 1 each Discontinued Medications Acetaminophen (Tylenol) 650 mg PO NOW ONE Stop: 05/04/17 21:30 Last Admin: 05/04/17 22:01 Dose: 650 mg Sodium Chloride (Normal Saline) 1,000 mls @ 999 mls/hr IV .Bolus ONE Stop: 05/04/17 22:25 Last Admin: 05/04/17 22:00 Dose: 999 mls/hr Cefepime HCl 2 gm/ Premix 50 mls @ 100 mls/hr IV ONETIME ONE Stop: 05/04/17 22:06 Last Admin: 05/04/17 22:43 Dose: 100 mls/hr Vancomycin HCl 1,000 mg/ (Dextrose/Water) 250 mls @ 167 mls/hr IV ONETIME ONE Stop: 05/04/17 23:06 Last Admin: 05/04/17 22:42 Dose: Not Given Sodium Chloride (Normal Saline) Confirm Administered Dose 250 mls @ as directed .ROUTE .STK-MED ONE Stop: 05/04/17 22:17 Last Admin: 05/04/17 22:24 Dose: 250 ml Sodium Chloride (Normal Saline) 1,000 mls @ 999 mls/hr IV ASDIRECTED [facility] Last Infusion: 05/05/17 01:28 Dose: Infused Cefepime HCl 2 gm/ Premix 50 mls @ 100 mls/hr IV Q12H [facility] Stop: 05/06/17 00:16 Last Admin: 05/05/17 21:39 Dose: 100 mls/hr Sodium Chloride (Normal Saline) 1,000 mls @ 999 mls/hr IV .BOLUS [facility] Sodium Chloride (Normal Saline) 1,000 mls @ 999 mls/hr IV ASDIRECTED [facility] Last Admin: 05/05/17 01:45 Dose: 999 mls/hr Vancomycin HCl 1 gm/Vancomycin HCl 250 mg/ Sodium Chloride 500 mls @ 333.333 mls/hr IV Q24H [facility] Last Admin: 05/05/17 22:15 Dose: 333.333 mls/hr Albumin Human (Buminate 5%) 250 mls @ 250 mls/hr IV ONETIME ONE Stop: 05/05/17 04:34 Last Admin: 05/05/17 04:22 Dose: 250 mls/hr Sodium Chloride (Normal Saline) 500 mls @ 999 mls/hr IV .BOLUS [facility] Last Admin: 05/05/17 09:45 Dose: 999 mls/hr Sodium Chloride (Normal Saline) 500 mls @ 999 mls/hr IV .BOLUS [facility] Last Admin: 05/05/17 14:45 Dose: 999 mls/hr Piperacillin Sod/Tazobactam (Sod 3.375 gm/ Sodium Chloride) 50 mls @ 100 mls/ hr IV Q6H [facility] Last Admin: 05/06/17 04:05 Dose: 100 mls/hr Loperamide HCl (Imodium) 2 mg PO Q4H PRN PRN Reason: Diarrhea Last Admin: 05/05/17 21:15 Dose: 2 mg Vancomycin HCl (Vancocin) Confirm Administered Dose 1 gm .ROUTE .STK-MED ONE Stop: 05/04/17 22:15 Last Admin: 05/04/17 22:24 Dose: 1 gm Vancomycin HCl (Pharmacy To Dose - Vancomycin) 1 dose .XX ASDIRECTED [facility] - Exam General: alert, cooperative Lungs: Clear to auscultation, Normal respiratory effort Cardiovascular: Regular Rate, Regular Rhythm Abdomen: bowel sounds present, soft, no tenderness, no distension Extremities: no edema Skin: warm, dry, intact - Problem List Review Problem List Initiated/Reviewed/Updated: Yes - My Orders Last 24 Hours: My Active Orders 05/06/17 11:17 Hydrocolloid Dressing [DuoDerm CGF] 1 each TOP DAILY PRN 05/06/17 11:25 Transfer Patient (Change bed) [ADT] Routine Telemetry Monitoring [Cardiac Monitoring] [RC] . DIRECTED - Plan Plan:: 67 yo male admitted 05/05/17 for sepsis suspect UTI source with PMH of P-afib, htn , and COPD Sepsis: resolving, lactic acid normal. Conintue zosyn for gram negative shay bacteremia and klebsiella UTI. Continue flagyl for C. diff colitis. Anemia: Hgb 9.4 after 2 units pRBC transfusion P-afib: Restart home Amiodarone monitor COPD: home inhaler may benefit from duonebs if continue episodes of sob. VTE: SCD, Heparin
[2017-05-07] MEDS: Hydrocolloid Dressing 4x4 Bandage TOP PRN ×2 (03:29→08:13)
[2017-05-07] MEDS: Piperacillin/Tazobactam 4.5 GM in Sodium Chloride 0.9% 100 ML IV SCH ×4 (03:30→22:49)
[2017-05-07 06:15] LABS: CHLORIDE,CL 109 mmol/L (98-110); SODIUM,NA 139 mmol/L (136-146)
[2017-05-07] MEDS ORDERED: Magnesium Sulfate/Water 4 GM in Premix Bag 1 BAG IV ONE (06:38)
[2017-05-07] MEDS ORDERED: Potassium Chloride 20 MEQ Tab.ER PO ONE (06:40)
[2017-05-07] MEDS ORDERED: Sodium Chloride 0.9% with KCl 1,000 ML IV SCH (06:45)
[2017-05-07] MEDS: metroNIDAZOLE 250 MG Tab PO SCH ×2 (07:57→15:30)
[2017-05-07] MEDS: Heparin Sodium 5,000 Units/ML Vial SUBCUT SCH ×2 (08:00→20:05)
[2017-05-07] MEDS: Amiodarone 200 MG Tab PO SCH ×2 (08:02→20:07)
[2017-05-07] MEDS: Fluticasone/Salmeterol 250-50 MCG Inhalation Powder 14/Diskus INH SCH ×2 (08:03→20:07)
--- NOTE | 2017-05-07 14:06 | PCM.PN ---
- Review of Systems Systems Review Comment:: feeling well, no complaints - Patient Data Vitals - most recent: Last Vital Signs Temp 36.5 C 05/07/17 12:00 Pulse 86 05/07/17 04:00 Resp 20 05/07/17 12:00 BP 123/80 05/07/17 12:00 Pulse Ox 96 05/07/17 12:00 Weight - most recent: 88 kg I&O - last 24 hours: Intake & Output 05/06/17 05/07/17 05/07/17 22:59 06:59 14:59 Intake Total 1107 350 200 Output Total 1825 2100 Balance -718 -9516 200 Lab Results last 24 hrs: Laboratory Results - last 24 hr 05/07/17 05/07/17 Range/Units 05:19 05:19 WBC 6.90 (4.0-11.0) K/uL RBC 3.92 L (4.50-5.90) M/uL Hgb 10.5 L (13.0-17.0) g/dL Hct 32.4 L (38.0-50.0) % MCV 82.7 (80.0-98.0) fL MCH 26.8 L (27.0-32.0) pg MCHC 32.4 (31.0-37.0) g/dL RDW Std Deviation 49.5 (28.0-62.0) fl RDW Coeff of Jeannie 16 H (11.0-15.0) % Plt Count 278 (150-400) K/uL MPV 9.50 (7.40-12.00) fL Neut % (Auto) 73.6 (48.0-80.0) % Lymph % (Auto) 13.2 L (16.0-40.0) % [place] % (Auto) 9.1 (0.0-15.0) % Eos % (Auto) 3.5 (0.0-7.0) % Baso % (Auto) 0.6 (0.0-1.5) % Neut # (Auto) 5.1 (1.4-5.7) K/uL Lymph # (Auto) 0.9 (0.6-2.4) K/uL [place] # (Auto) 0.6 (0.0-0.8) K/uL Eos # (Auto) 0.2 (0.0-0.7) K/uL Baso # (Auto) 0.0 (0.0-0.1) K/uL Nucleated RBC % 0.0 /100WBC Nucleated RBCs # 0 K/uL Sodium 139 (136-146) mmol/L Potassium 3.0 L (3.5-5.1) mmol/L Chloride 109 (98-110) mmol/L Carbon Dioxide 20 L (21-31) mmol/L BUN 14 (6.0-23.0) mg/dL Creatinine 1.2 (0.6-1.5) mg/dL Est Cr Clr Drug Dosing 57.90 mL/min Estimated GFR (MDRD) > 60.0 ml/min Glucose 78 (60-110) mg/dL Calcium 7.7 L (8.8-10.8) mg/dL Magnesium 0.7 L (1.5-2.3) mEq/L [place] Results last 24 hrs: Microbiology 05/06/17 13:16 Aerobic Blood Culture - Preliminary Blood - Venous - Lab Draw NO GROWTH AFTER 1 DAY Anaerobic Blood Culture - Final 05/06/17 13:16 Aerobic Blood Culture - Preliminary Blood - Venous NO GROWTH AFTER 1 DAY Anaerobic Blood Culture - Preliminary NO GROWTH AFTER 1 DAY Med Orders - Current: Current Medications Acetaminophen (Tylenol Extra Strength) 1,000 mg PO BID PRN PRN Reason: Pain Last Admin: 05/06/17 22:52 Dose: 1,000 mg Amiodarone HCl (Cordarone) 200 mg PO BID [facility] Last Admin: 05/07/17 08:02 Dose: 200 mg Heparin Sodium (Porcine) (Heparin Sodium) 5,000 units SUBCUT Q12HR [facility] Last Admin: 05/07/17 08:00 Dose: 5,000 units Piperacillin Sod/Tazobactam (Sod 4.5 gm/ Sodium Chloride) 100 mls @ 200 mls/hr IV Q6H [facility] Last Admin: 05/07/17 09:33 Dose: 200 mls/hr Potassium Chloride/Sodium Chloride (Normal Saline With 40 Meq Kcl) 1,000 mls @ 125 mls/hr IV ASDIRECTED [facility] Last Admin: 05/07/17 07:10 Dose: 125 mls/hr Metronidazole (Metronidazole) 500 mg PO Q8H [facility] Last Admin: 05/07/17 07:57 Dose: 500 mg Fluticasone/Salmeterol (Advair Diskus 250-50) 1 puff INH BID [facility] Last Admin: 05/07/17 08:03 Dose: 1 puff Tramadol HCl (Ultram) 100 mg PO Q6HR PRN PRN Reason: Pain Wound Care/Dressing Products (Duoderm Cgf) 1 each TOP DAILY PRN PRN Reason: pressure ulcer Last Admin: 05/07/17 08:13 Dose: 1 each Discontinued Medications Acetaminophen (Tylenol) 650 mg PO NOW ONE Stop: 05/04/17 21:30 Last Admin: 05/04/17 22:01 Dose: 650 mg Sodium Chloride (Normal Saline) 1,000 mls @ 999 mls/hr IV .Bolus ONE Stop: 05/04/17 22:25 Last Admin: 05/04/17 22:00 Dose: 999 mls/hr Cefepime HCl 2 gm/ Premix 50 mls @ 100 mls/hr IV ONETIME ONE Stop: 05/04/17 22:06 Last Admin: 05/04/17 22:43 Dose: 100 mls/hr Vancomycin HCl 1,000 mg/ (Dextrose/Water) 250 mls @ 167 mls/hr IV ONETIME ONE Stop: 05/04/17 23:06 Last Admin: 05/04/17 22:42 Dose: Not Given Sodium Chloride (Normal Saline) Confirm Administered Dose 250 mls @ as directed .ROUTE .STK-MED ONE Stop: 05/04/17 22:17 Last Admin: 05/04/17 22:24 Dose: 250 ml Sodium Chloride (Normal Saline) 1,000 mls @ 999 mls/hr IV ASDIRECTED [facility] Last Infusion: 05/05/17 01:28 Dose: Infused Cefepime HCl 2 gm/ Premix 50 mls @ 100 mls/hr IV Q12H [facility] Stop: 05/06/17 00:16 Last Admin: 05/05/17 21:39 Dose: 100 mls/hr Sodium Chloride (Normal Saline) 1,000 mls @ 999 mls/hr IV .BOLUS [facility] Sodium Chloride (Normal Saline) 1,000 mls @ 125 mls/hr IV ASDIRECTED [facility] Last Admin: 05/06/17 04:03 Dose: 125 mls/hr Sodium Chloride (Normal Saline) 1,000 mls @ 999 mls/hr IV ASDIRECTED [facility] Last Admin: 05/05/17 01:45 Dose: 999 mls/hr Vancomycin HCl 1 gm/Vancomycin HCl 250 mg/ Sodium Chloride 500 mls @ 333.333 mls/hr IV Q24H [facility] Last Admin: 05/05/17 22:15 Dose: 333.333 mls/hr Albumin Human (Buminate 5%) 250 mls @ 250 mls/hr IV ONETIME ONE Stop: 05/05/17 04:34 Last Admin: 05/05/17 04:22 Dose: 250 mls/hr Sodium Chloride (Normal Saline) 500 mls @ 999 mls/hr IV .BOLUS [facility] Last Admin: 05/05/17 09:45 Dose: 999 mls/hr Sodium Chloride (Normal Saline) 500 mls @ 999 mls/hr IV .BOLUS [facility] Last Admin: 05/05/17 14:45 Dose: 999 mls/hr Piperacillin Sod/Tazobactam (Sod 3.375 gm/ Sodium Chloride) 50 mls @ 100 mls/ hr IV Q6H [facility] Last Admin: 05/06/17 04:05 Dose: 100 mls/hr Magnesium Sulfate 4 gm/ Premix 100 mls @ 50 mls/hr IV ONETIME ONE Stop: 05/07/17 08:37 Last Admin: 05/07/17 07:09 Dose: 50 mls/hr Loperamide HCl (Imodium) 2 mg PO Q4H PRN PRN Reason: Diarrhea Last Admin: 05/05/17 21:15 Dose: 2 mg Potassium Chloride (Klor-Con M20) 40 meq PO ONETIME ONE Stop: 05/07/17 06:41 Last Admin: 05/07/17 07:09 Dose: 40 meq Vancomycin HCl (Vancocin) Confirm Administered Dose 1 gm .ROUTE .STK-MED ONE Stop: 05/04/17 22:15 Last Admin: 05/04/17 22:24 Dose: 1 gm Vancomycin HCl (Pharmacy To Dose - Vancomycin) 1 dose .XX ASDIRECTED [facility] - Exam General: alert, oriented Lungs: Clear to auscultation, Normal respiratory effort Cardiovascular: Regular Rate, Regular Rhythm Abdomen: bowel sounds present, soft, no tenderness, no distension Extremities: no edema - Problem List Review Problem List Initiated/Reviewed/Updated: Yes - My Orders Last 24 Hours: My Active Orders 05/06/17 13:16 CULTURE BLOOD [BC] Stat CULTURE BLOOD [BC] Stat 05/07/17 06:45 Sodium Chloride 0.9% with KCl [Normal Saline with 40 mEq KCl] 1,000 ml IV ASDIRECTED 05/08/17 05:11 BASIC METABOLIC PANEL,BMP [CHEM] AM CBC WITH AUTO DIFF [HEME] AM 05/09/17 05:11 BASIC METABOLIC PANEL,BMP [CHEM] AM CBC WITH AUTO DIFF [HEME] AM - Plan Plan:: 67 yo male admitted 05/05/17 for sepsis suspect UTI source with PMH of P-afib, htn , and COPD Sepsis: resolving, lactic acid normal. Conintue zosyn for gram negative shay bacteremia and klebsiella UTI. Continue flagyl for C. diff colitis. awating sensitivities from blood cultures. Anemia: Hgb 10.5 today, s/p 2 units pRBC transfusion P-afib: Restart home Amiodarone monitor COPD: home inhaler may benefit from duonebs if continue episodes of sob. hypokalemia/hypomagnesia: replacing VTE: SCD, Heparin
[2017-05-07 19:44] LABS: CHLORIDE,CL 109 mmol/L (98-110); SODIUM,NA 136 mmol/L (136-146)
[2017-05-07] MEDS ORDERED: Magnesium Sulfate/Water 2 GM in Premix Bag 1 BAG IV ONE (20:56)
[2017-05-08] MEDS: metroNIDAZOLE 250 MG Tab PO SCH ×3 (00:56→16:48)
[2017-05-08] MEDS: Piperacillin/Tazobactam 4.5 GM in Sodium Chloride 0.9% 100 ML IV SCH (04:40)
[2017-05-08 06:32] LABS: CHLORIDE,CL 110 mmol/L (98-110); SODIUM,NA 141 mmol/L (136-146)
[2017-05-08] MEDS: Amiodarone 200 MG Tab PO SCH (08:18)
[2017-05-08] MEDS: Heparin Sodium 5,000 Units/ML Vial SUBCUT SCH (08:18)
[2017-05-08] MEDS: Fluticasone/Salmeterol 250-50 MCG Inhalation Powder 14/Diskus INH SCH (09:07)
[2017-05-08] MEDS ORDERED: Magnesium Sulfate/Water 2 GM in Premix Bag 1 BAG IV ONE (10:10)
[2017-05-08] MEDS: Ertapenem 1 GM in Sodium Chloride 0.9% 50 ML IV SCH ×2 (11:42→16:44)
[2017-05-08 12:01] VITALS: BP 133/86
[2017-05-08] MEDS: Acetaminophen 500 MG Tab PO PRN (12:16)
[2017-05-08] MEDS: Hydrocolloid Dressing 4x4 Bandage TOP PRN (12:17)
--- NOTE | 2017-05-08 15:20 | PCM.DCSUM1 ---
Discharge Summary - Discharge Data Discharge Date: 05/08/17 Discharge Disposition: Home, Self-Care 01 Condition: Good - Patient Summary/Data Hospital Course: Admission diagnosis Sepsis from ESBL Klebsiella pneumonia UTI with bacteremia C.diff colitis Acute kidney injury Anemia of chronic disease s/p two unit pRBC transfusion Hospital course 67 yo male with pmh of COPD and paroxysmal atrial fibrillation who presents from [facility] following a fall with fever and UTI. He sustained an abrasion over his left elbow. Prior to admission he reported dysuria and has been treated with Macrobid for UTI. In the ED he was noted to have a UA positive for UTI. WBC of 15,000, Creatinie of 2.3 and lactic acid of 2.9. Blood pressure on admission was 140/60 but then dropped to 80/46. He was transfered to the ICU and resuscitated with IV fluids and given cefepime which was switch to zosyn based on sensitivities of urine culture at [facility]. He was placed on Flagyl for treatment of c.diff colitis which was diagnosed on stool studies for evaluation of diarrhea. Patient did have improvement of blood pressures, and normalization of lacti acid, creatinine and WBC. His urine and blood cultures grew out ESBL klebsiella and patient was switch to Ertapenem. PICC line was placed for outpatient antibioitic therapy. He was discharged home to have daily infusions of Ertapenem for two weeks. He is also to take Flagyl 500mg q8 hours for two weeks. He is to follow with Dr. Arias for post hospital visit. - Patient Instructions Diet: Regular Diet as Tolerated - Discharge Plan Prescriptions/Med Rec: metroNIDAZOLE [Flagyl] 500 mg PO Q8H #42 tablet Home Medications: Home Meds Ipratropium/Albuterol Sulfate [Combivent Respimat Inhal [place]] 20 mcg IH Q6HR [History] Tiotropium [Spiriva HandiHaler] 18 mcg INH DAILY 03/11/17 [History] atorvaSTATin [Lipitor] 20 mg PO BEDTIME 03/11/17 [History] Acetaminophen [Tylenol Extra Strength] 1,000 mg PO BID PRN 04/21/17 [History] Amiodarone HCl [Pacerone] 200 mg PO BID 04/21/17 [History] Fluticasone/Salmeterol [Advair Diskus 250-50] 1 each IH BID 04/21/17 [History] Magnesium Oxide 400 mg PO DAILY 04/21/17 [History] Metoprolol Tartrate 12.5 mg PO BID 04/21/17 [History] traMADol [Ultram] 100 mg PO Q6HR PRN 04/21/17 [History] Aspirin [Ecotrin] 81 mg PO DAILY 05/04/17 [History] Loperamide HCl [Anti-Diarrheal] 2 mg PO Q6HR PRN 05/04/17 [History] QUEtiapine [SEROquel] 25 mg PO BID 05/04/17 [History] Vitamin B Complex 1 cap PO DAILY 05/04/17 [History] Ertapenem [INVanz] 1 gm IV Q24H vial 05/08/17 [Rx] metroNIDAZOLE [Flagyl] 500 mg PO Q8H #42 tablet 05/08/17 [Rx] Referrals: PCP,None [Primary Care Provider] - - Patient Data Vitals - Most Recent: Last Vital Signs Temp 36.0 C 05/08/17 12:00 Pulse 88 05/08/17 12:00 Resp 20 05/08/17 12:00 BP 133/86 05/08/17 12:00 Pulse Ox 95 05/08/17 12:00 Weight - Most Recent: 93 kg I&O - Last 24 hours: Intake & Output 05/08/17 05/08/17 05/08/17 06:59 14:59 22:59 Intake Total 450 50 Output Total 1750 Balance -1300 50 Lab Results - Last 24 hrs: Laboratory Results - last 24 hr 05/07/17 05/08/17 05/08/17 Range/Units 19:09 05:50 05:50 WBC 7.79 (4.0-11.0) K/uL RBC 4.11 L (4.50-5.90) M/uL Hgb 10.9 L (13.0-17.0) g/dL Hct 34.1 L (38.0-50.0) % MCV 83.0 (80.0-98.0) fL MCH 26.5 L (27.0-32.0) pg MCHC 32.0 (31.0-37.0) g/dL RDW Std Deviation 49.4 (28.0-62.0) fl RDW Coeff of Jeannie 16 H (11.0-15.0) % Plt Count 288 (150-400) K/uL MPV 9.30 (7.40-12.00) fL Neut % (Auto) 75.1 (48.0-80.0) % Lymph % (Auto) 13.4 L (16.0-40.0) % [place] % (Auto) 8.6 (0.0-15.0) % Eos % (Auto) 2.3 (0.0-7.0) % Baso % (Auto) 0.6 (0.0-1.5) % Neut # (Auto) 5.9 H (1.4-5.7) K/uL Lymph # (Auto) 1.0 (0.6-2.4) K/uL [place] # (Auto) 0.7 (0.0-0.8) K/uL Eos # (Auto) 0.2 (0.0-0.7) K/uL Baso # (Auto) 0.1 (0.0-0.1) K/uL Nucleated RBC % 0.0 /100WBC Nucleated RBCs # 0 K/uL INR (0.86-1.11) Sodium 136 141 (136-146) mmol/L Potassium 3.8 3.6 (3.5-5.1) mmol/L Chloride 109 110 (98-110) mmol/L Carbon Dioxide 18 L 20 L (21-31) mmol/L BUN 11 10 (6.0-23.0) mg/dL Creatinine 1.1 1.1 (0.6-1.5) mg/dL Est Cr Clr Drug Dosing 63.17 63.17 mL/min Estimated GFR (MDRD) > 60.0 > 60.0 ml/min Glucose 124 H 79 (60-110) mg/dL Calcium 7.5 L 7.8 L (8.8-10.8) mg/dL Magnesium 1.2 L (1.5-2.3) mEq/L 05/08/17 05/08/17 Range/Units 05:56 12:43 WBC (4.0-11.0) K/uL RBC (4.50-5.90) M/uL Hgb (13.0-17.0) g/dL Hct (38.0-50.0) % MCV (80.0-98.0) fL MCH (27.0-32.0) pg MCHC (31.0-37.0) g/dL RDW Std Deviation (28.0-62.0) fl RDW Coeff of Jeannie (11.0-15.0) % Plt Count (150-400) K/uL MPV (7.40-12.00) fL Neut % (Auto) (48.0-80.0) % Lymph % (Auto) (16.0-40.0) % [place] % (Auto) (0.0-15.0) % Eos % (Auto) (0.0-7.0) % Baso % (Auto) (0.0-1.5) % Neut # (Auto) (1.4-5.7) K/uL Lymph # (Auto) (0.6-2.4) K/uL [place] # (Auto) (0.0-0.8) K/uL Eos # (Auto) (0.0-0.7) K/uL Baso # (Auto) (0.0-0.1) K/uL Nucleated RBC % /100WBC Nucleated RBCs # K/uL INR 1.37 H (0.86-1.11) Sodium (136-146) mmol/L Potassium (3.5-5.1) mmol/L Chloride (98-110) mmol/L Carbon Dioxide (21-31) mmol/L BUN (6.0-23.0) mg/dL Creatinine (0.6-1.5) mg/dL Est Cr Clr Drug Dosing mL/min Estimated GFR (MDRD) ml/min Glucose (60-110) mg/dL Calcium (8.8-10.8) mg/dL Magnesium 1.4 L (1.5-2.3) mEq/L AGNES Results - Last 24 hrs: Microbiology 05/06/17 13:16 Aerobic Blood Culture - Preliminary Blood - Venous - Lab Draw NO GROWTH AFTER 2 DAYS Anaerobic Blood Culture - Final 05/06/17 13:16 Aerobic Blood Culture - Preliminary Blood - Venous NO GROWTH AFTER 2 DAYS Anaerobic Blood Culture - Preliminary NO GROWTH AFTER 2 DAYS Med Orders - Current: Current Medications Acetaminophen (Tylenol Extra Strength) 1,000 mg PO BID PRN PRN Reason: Pain Last Admin: 05/08/17 12:16 Dose: 1,000 mg Amiodarone HCl (Cordarone) 200 mg PO BID [facility] Last Admin: 05/08/17 08:18 Dose: 200 mg Heparin Sodium (Porcine) (Heparin Sodium) 5,000 units SUBCUT Q12HR [facility] Last Admin: 05/08/17 08:18 Dose: 5,000 units Ertapenem 1 gm/ Sodium (Chloride) 50 mls @ 100 mls/hr IV Q24H [facility] Last Admin: 05/08/17 11:42 Dose: 100 mls/hr Metronidazole (Metronidazole) 500 mg PO Q8H [facility] Last Admin: 05/08/17 08:18 Dose: 500 mg Fluticasone/Salmeterol (Advair Diskus 250-50) 1 puff INH BID [facility] Last Admin: 05/08/17 09:07 Dose: 1 puff Tramadol HCl (Ultram) 100 mg PO Q6HR PRN PRN Reason: Pain Wound Care/Dressing Products (Duoderm Cgf) 1 each TOP DAILY PRN PRN Reason: pressure ulcer Last Admin: 05/08/17 12:17 Dose: 1 each Discontinued Medications Acetaminophen (Tylenol) 650 mg PO NOW ONE Stop: 05/04/17 21:30 Last Admin: 05/04/17 22:01 Dose: 650 mg Sodium Chloride (Normal Saline) 1,000 mls @ 999 mls/hr IV .Bolus ONE Stop: 05/04/17 22:25 Last Admin: 05/04/17 22:00 Dose: 999 mls/hr Cefepime HCl 2 gm/ Premix 50 mls @ 100 mls/hr IV ONETIME ONE Stop: 05/04/17 22:06 Last Admin: 05/04/17 22:43 Dose: 100 mls/hr Vancomycin HCl 1,000 mg/ (Dextrose/Water) 250 mls @ 167 mls/hr IV ONETIME ONE Stop: 05/04/17 23:06 Last Admin: 05/04/17 22:42 Dose: Not Given Sodium Chloride (Normal Saline) Confirm Administered Dose 250 mls @ as directed .ROUTE .STK-MED ONE Stop: 05/04/17 22:17 Last Admin: 05/04/17 22:24 Dose: 250 ml Sodium Chloride (Normal Saline) 1,000 mls @ 999 mls/hr IV ASDIRECTED [facility] Last Infusion: 05/05/17 01:28 Dose: Infused Cefepime HCl 2 gm/ Premix 50 mls @ 100 mls/hr IV Q12H [facility] Stop: 05/06/17 00:16 Last Admin: 05/05/17 21:39 Dose: 100 mls/hr Sodium Chloride (Normal Saline) 1,000 mls @ 999 mls/hr IV .BOLUS JOSE Sodium Chloride (Normal Saline) 1,000 mls @ 125 mls/hr IV ASDIRECTED [facility] Last Admin: 05/06/17 04:03 Dose: 125 mls/hr Sodium Chloride (Normal Saline) 1,000 mls @ 999 mls/hr IV ASDIRECTED [facility] Last Admin: 05/05/17 01:45 Dose: 999 mls/hr Vancomycin HCl 1 gm/Vancomycin HCl 250 mg/ Sodium Chloride 500 mls @ 333.333 mls/hr IV Q24H [facility] Last Admin: 05/05/17 22:15 Dose: 333.333 mls/hr Albumin Human (Buminate 5%) 250 mls @ 250 mls/hr IV ONETIME ONE Stop: 05/05/17 04:34 Last Admin: 05/05/17 04:22 Dose: 250 mls/hr Sodium Chloride (Normal Saline) 500 mls @ 999 mls/hr IV .BOLUS [facility] Last Admin: 05/05/17 09:45 Dose: 999 mls/hr Sodium Chloride (Normal Saline) 500 mls @ 999 mls/hr IV .BOLUS [facility] Last Admin: 05/05/17 14:45 Dose: 999 mls/hr Piperacillin Sod/Tazobactam (Sod 3.375 gm/ Sodium Chloride) 50 mls @ 100 mls/ hr IV Q6H [facility] Last Admin: 05/06/17 04:05 Dose: 100 mls/hr Piperacillin Sod/Tazobactam (Sod 4.5 gm/ Sodium Chloride) 100 mls @ 200 mls/hr IV Q6H [facility] Last Admin: 05/08/17 04:40 Dose: 200 mls/hr Magnesium Sulfate 4 gm/ Premix 100 mls @ 50 mls/hr IV ONETIME ONE Stop: 05/07/17 08:37 Last Admin: 05/07/17 07:09 Dose: 50 mls/hr Potassium Chloride/Sodium Chloride (Normal Saline With 40 Meq Kcl) 1,000 mls @ 125 mls/hr IV ASDIRECTED [facility] Last Admin: 05/07/17 07:10 Dose: 125 mls/hr Magnesium Sulfate 2 gm/ Premix 50 mls @ 50 mls/hr IV ONETIME ONE Stop: 05/07/17 21:55 Last Admin: 05/07/17 21:41 Dose: 50 mls/hr Magnesium Sulfate 2 gm/ Premix 50 mls @ 50 mls/hr IV ONETIME ONE Stop: 05/08/17 11:09 Last Admin: 05/08/17 10:36 Dose: 50 mls/hr Loperamide HCl (Imodium) 2 mg PO Q4H PRN PRN Reason: Diarrhea Last Admin: 05/05/17 21:15 Dose: 2 mg Potassium Chloride (Klor-Con M20) 40 meq PO ONETIME ONE Stop: 05/07/17 06:41 Last Admin: 05/07/17 07:09 Dose: 40 meq Vancomycin HCl (Vancocin) Confirm Administered Dose 1 gm .ROUTE .STK-MED ONE Stop: 05/04/17 22:15 Last Admin: 05/04/17 22:24 Dose: 1 gm Vancomycin HCl (Pharmacy To Dose - Vancomycin) 1 dose .XX ASDIRECTED JOSE *Q Meaningful Use (DIS) - VTE *Q VTE Criteria *Q: - Stroke *Q Stroke Criteria *Q: - AMI *Q AMI Criteria *Q:
--- NOTE | 2017-05-08 17:18 | US ---
EXAMINATION: Fluoro and ultrasound guided left-sided PICC line placement. HISTORY: Long-term antibiotics TECHNIQUE/FINDINGS: After written informed consent was obtained from the patient using ultrasound a nd Fluoro guidance under aseptic conditions utilizing 1% lidocaine as local anesthesia left basilic vein was accessed and 5 Eston[place] PICC catheter was deployed with its tip in the distal superior vena c denny. The catheter flushes and withdraws blood well. The catheter is flushed with the diluted hepari n. The catheter secured well. IMPRESSION: Successful Fluoro and ultrasound guided PICC line placement.
== END 2017-05-08 17:30 | disposition home or self-care (01) | DRG 872 ==
LOC: MW.ED 21:01 → MW.MS 23:50 → UNDOADMIN 23:54 → MW.ICU 05-05 00:26 → MW.MS 05-05 00:26 → EEVIPCON 05-06 11:25 → UNDOADMIN 05-06 11:25 → MW.ICU 05-06 11:25 → MW.MS 05-07 20:35 → UNDODISIN 05-08 17:30
PROVIDERS: ATTEND Internal Medicine
PROC: 30233N1 Transfusion of Nonautologous Red Blood Cells into Peripheral Vein, Percutaneous Approach (ICD-10-PCS; principal; 2017-05-05)
PROC: 02HV33Z Insertion of Infusion Device into Superior Vena Cava, Percutaneous Approach (ICD-10-PCS; 2017-05-08)
DX: A41.9 Sepsis, unspecified organism (principal); N39.0 Urinary tract infection, site not specified; D72.829 Elevated white blood cell count, unspecified; R50.9 Fever, unspecified; I95.9 Hypotension, unspecified; N17.9 Acute kidney failure, unspecified; B96.1 Klebsiella pneumoniae [K. pneumoniae] as the cause of diseases classified elsewhere; E78.00 Pure hypercholesterolemia, unspecified; I10 Essential (primary) hypertension; J44.9 Chronic obstructive pulmonary disease, unspecified; B96.89 Other specified bacterial agents as the cause of diseases classified elsewhere; I48.91 Unspecified atrial fibrillation; D64.9 Anemia, unspecified; E87.6 Hypokalemia; E83.42 Hypomagnesemia; Z79.899 Other long term (current) drug therapy; Z79.82 Long term (current) use of aspirin
CPT/HCPCS: 36415; 36430; 71010; 80053; 81001; 83605; 84484; 85025; 87040 ×2; 87086; 93005; 96361; 96365; 99285; A9270; J0692; J3370; J7040; J7050; 36569; 74176; 74176-26; 76937; 76937-26; 77001; 77001-26; 80048; 83735; 85610; 86850; 86900; 86901; 86920; 86921; 86922; 87077; 87186; 87324; 94640; J1335; J1644; J2543; J3475; J3480; J7030; P9016

== ENCOUNTER 2017-05-18 17:44 | Inpatient (IN) | payer MEDICARE, OTHER ==
--- NOTE | 2017-05-18 18:10 | EDM.PDOC ---
ED HPI GENERAL MEDICAL PROBLEM - General Chief Complaint: Neuro Symptoms/Deficits Stated Complaint: POSSIBLE UTI Time Seen by Provider: 05/18/17 17:55 Source of Information: Reports: Patient History Limitations: Reports: No Limitations - History of Present Illness INITIAL COMMENTS - FREE TEXT/NARRATIVE: HISTORY AND PHYSICAL: History of present illness: [Patient is brought to the emergency room by his . He has had increased confusion today as well as a fall. Over the past couple of days he's been falling more than he had previously. Today his was trying to transfer him when his legs became tangled and he fell backwards on top of his . He denies any injury from the fall. This afternoon he repeatedly questioned his as to when it was time to have antibiotic infusion, even though he had already done in the morning. He has become increasingly weak over the past couple of days. 3 days ago he had been ambulating well with his walker and taking walks outside with his . Today he had difficulty transferring from a chair. Patient has had multiple surgeries for rib fractures and recurring pneumothoraces over the past several months. He was hospitalized on May 05 for urosepsis. He is getting Invanse through PICC line daily. Had labs repeated this morning. UA showed dark cloudy urine positive for nitrites, 6-10 white blood cells, few bacteria. White blood count 8.49, hemoglobin 11.2, BUNs 6, creatinine 0.9, potassium 3.2. Patient had not been notified yet of lab results at the time of presentation to the ER. Patient is planning to be admitted to [facility] at noon tomorrow. He denies fever and chills. No headaches or fainting. No chest pain, shortness of breath, difficulty breathing. His appetite has been good. No nausea or vomiting. He denies abdominal pain. Denies burning with urination, urinary urgency and frequency, and has had no blood in his urine. Denies new low back pain. Slightly increased swelling to his feet and lower legs since he has been less ambulatory over the last couple of days. He continues to take metronidazole for C. difficile infection. He has 4 doses left.] Review of systems: As per history of present illness and below otherwise all systems reviewed and negative. Past medical history: As per history of present illness and as reviewed below otherwise noncontributory. Surgical history: As per history of present illness and as reviewed below otherwise noncontributory. Social history: No reported history of drug or alcohol abuse. Family history: As per history of present illness and as reviewed below otherwise noncontributory. Physical exam: HEENT: Atraumatic, normocephalic. Oral mucous membranes are pink and moist. Wears glasses. Lungs: Clear to auscultation, breath sounds equal bilaterally. No wheezing crackles or rales. Heart: S1S2, regular rate and rhythm., negative for clicks, rubs, murmur Abdomen: Bowel sounds are normoactive. Soft, nondistended, nontender. No guarding masses or rebound. Negative for costovertebral tenderness. Pelvis: Stable nontender. Genitourinary: Deferred. Rectal: Deferred. Extremities: Atraumatic, no deformities. No cyanosis. Mild edema to feet. Neurovascular unremarkable. Neuro: Awake, alert, oriented. Motor and sensory unremarkable throughout. Exam nonfocal. Psych: Pleasant, answers questions appropriately. Diagnostics: [Head CT without contrast, CBC, urine culture, blood cultures 2, lactic acid, one view chest x-ray] Therapeutics: [Zosyn 4.5 grams] Impression: [Weakness, altered mentation, UTI] Plan: [Head CT shows no acute intracranial process. Chest x-ray shows no acute processes. WBC 7.03. Lactate 2.4. Urine and blood cultures are pending. Reviewed patient's labs and presentation w/ Dr. Mendoza Enciso, who agrees with inpatient admission. Pt and his are in agreement with today's plan. ] Definitive disposition and diagnosis as appropriate pending reevaluation and review of above. - Related Data Allergies Allergy/AdvReac Type Severity Reaction Status Date / Time No Known Allergies Allergy Verified 05/18/17 18:08 Home Meds: Home Meds Acetaminophen [Tylenol Extra Strength] 1,000 mg PO TID PRN 04/21/17 [History] Amiodarone HCl [Pacerone] 200 mg PO BID 04/21/17 [History] Fluticasone/Salmeterol [Advair Diskus 250-50] 1 each IH BID 04/21/17 [History] traMADol [Ultram] 100 mg PO Q8HR PRN 04/21/17 [History] Aspirin [Ecotrin] 81 mg PO DAILY 05/04/17 [History] Ertapenem [INVanz] 1 gm IV Q24H vial 05/08/17 [Rx] metroNIDAZOLE [Flagyl] 500 mg PO Q8H #42 tablet 05/08/17 [Rx] Cyclobenzaprine [Flexeril] 10 mg PO TID 05/18/17 [History] Past Medical History HEENT History: Reports: Cataract, Impaired Vision Cardiovascular History: Reports: High Cholesterol, Hypertension Other Cardiovascular History: hypokalemia Respiratory History: Reports: COPD, Pneumothorax, SOB Other Respiratory History: flail chest. hemothorax Gastrointestinal History: Reports: None Genitourinary History: Reports: None Musculoskeletal History: Reports: None Neurological History: Reports: Head Trauma, Neuropathy, Peripheral Psychiatric History: Reports: None Other Psychiatric History: alcohol dependence with withdrawl delerium Endocrine/Metabolic History: Reports: Obesity/BMI 30+ Hematologic History: Reports: None Immunologic History: Reports: None Oncologic (Cancer) History: Reports: None Dermatologic History: Reports: None - Infectious Disease History Infectious Disease History: Reports: None - Past Surgical History Head Surgeries/Procedures: Reports: None HEENT Surgical History: Reports: None Cardiovascular Surgical History: Reports: None Respiratory Surgical History: Reports: None GI Surgical History: Reports: None Male Surgical History: Reports: None Endocrine Surgical History: Reports: None Neurological Surgical History: Reports: None Musculoskeletal Surgical History: Reports: Other (See Below) Other Musculoskeletal Surgeries/Procedures:: multiple rib fractures Dermatological Surgical History: Reports: None Social & Family History - Family History Family Medical History: Noncontributory - Tobacco Use Smoking Status *Q: Never Smoker Used Tobacco, but Quit: Yes Month Tobacco Last Used: 1969 Second Hand Smoke Exposure: No - Caffeine Use Caffeine Use: Reports: Coffee - Recreational Drug Use Recreational Drug Use: No ED ROS GENERAL - Review of Systems Review Of Systems: ROS reveals no pertinent complaints other than HPI. ED EXAM, NEURO - Physical Exam Exam: See Below Course - Vital Signs Last Recorded V/S: Last Vital Signs Temp 97.2 F 05/18/17 17:56 Pulse 72 05/18/17 19:06 Resp 18 05/18/17 19:06 BP 143/93 H 05/18/17 19:06 Pulse Ox 96 05/18/17 19:06 - Orders/Labs/Meds Orders: Active Orders 24 hr Category Date Time Status Patient Status [ADT] Stat ADT 05/18/17 20:17 Active Chest 1V Frontal [CR] Stat Exams 05/18/17 18:43 Taken Head wo Cont [CT] Stat Exams 05/18/17 18:06 Taken CULTURE BLOOD [BC] Stat Lab 05/18/17 18:20 Received CULTURE BLOOD [BC] Stat Lab 05/18/17 18:32 Received CULTURE URINE [RM] Stat Lab 05/18/17 11:05 Received Piperacillin/Tazobactam [Piperacil-Tazobact] 4.5 gm Med 05/18/17 20:17 Active Sodium Chloride 0.9% [Normal Saline] 100 ml IV ONETIME Blood Culture x2 Reflex Set [OM.PC] Stat Oth 05/18/17 18:07 Ordered Medication Orders Piperacillin Sod/Tazobactam (Sod 4.5 gm/ Sodium Chloride) 100 mls @ 100 mls/hr IV ONETIME ONE Stop: 05/18/17 21:16 Labs: Laboratory Tests 05/18/17 05/18/17 Range/Units 18:20 18:20 WBC 7.03 (4.0-11.0) K/uL RBC 3.71 L (4.50-5.90) M/uL Hgb 10.1 L (13.0-17.0) g/dL Hct 31.0 L (38.0-50.0) % MCV 83.6 (80.0-98.0) fL MCH 27.2 (27.0-32.0) pg MCHC 32.6 (31.0-37.0) g/dL RDW Std Deviation 58.0 (28.0-62.0) fl RDW Coeff of Jeannie 19 H (11.0-15.0) % Plt Count 295 (150-400) K/uL MPV 9.30 (7.40-12.00) fL Add Manual Diff YES Neutrophils % (Manual) 54 (48.0-80.0) % Lymphocytes % (Manual) 27 (16.0-40.0) % Monocytes % (Manual) 15 (0.0-15.0) % Eosinophils % (Manual) 2 (0.0-7.0) % Basophils % (Manual) 2 H (0.0-1.5) % Nucleated RBC % 0.0 /100WBC Absolute Seg Neuts 3.8 Lymphocytes # (Manual) 1.9 Monocytes # (Manual) 1.1 Eosinophils # (Manual) 0.1 Basophils # (Manual) 0 Nucleated RBCs # 0 K/uL Lactate 2.4 H (0.20-2.00) mmol/L Meds: Medications Generic Name Dose Route Start Last Admin Trade Name Freq PRN Reason Stop Dose Admin Piperacillin Sod/Tazobactam 100 mls @ 100 mls/hr 05/18/17 20:17 Sod 4.5 gm/ Sodium Chloride IV 05/18/17 21:16 ONETIME ONE Departure - Departure Time of Disposition: 20:35 Disposition: Admitted As Inpatient 64 Condition: Good Clinical Impression: UTI (urinary tract infection) Qualifiers: Urinary tract infection type: acute cystitis Hematuria presence: with hematuria Qualified Code(s): N30.01 - Acute cystitis with hematuria - Discharge Information Forms: ED Department Discharge - My Orders Last 24 Hours: My Active Orders 05/18/17 11:05 CULTURE URINE [RM] Stat 05/18/17 18:06 Head wo Cont [CT] Stat 05/18/17 18:07 Blood Culture x2 Reflex Set [OM.PC] Stat 05/18/17 18:20 CULTURE BLOOD [BC] Stat 05/18/17 18:32 CULTURE BLOOD [BC] Stat 05/18/17 18:43 Chest 1V Frontal [CR] Stat 05/18/17 20:17 Patient Status [ADT] Stat Piperacillin/Tazobactam [Piperacil-Tazobact] 4.5 gm Sodium Chloride 0.9% [ Normal Saline] 100 ml IV ONETIME - Assessment/Plan Last 24 Hours: My Active Orders 05/18/17 11:05 CULTURE URINE [RM] Stat 05/18/17 18:06 Head wo Cont [CT] Stat 05/18/17 18:07 Blood Culture x2 Reflex Set [OM.PC] Stat 05/18/17 18:20 CULTURE BLOOD [BC] Stat 05/18/17 18:32 CULTURE BLOOD [BC] Stat 05/18/17 18:43 Chest 1V Frontal [CR] Stat 05/18/17 20:17 Patient Status [ADT] Stat Piperacillin/Tazobactam [Piperacil-Tazobact] 4.5 gm Sodium Chloride 0.9% [ Normal Saline] 100 ml IV ONETIME
[2017-05-18] MEDS ORDERED: Piperacillin/Tazobactam 4.5 GM in Sodium Chloride 0.9% 100 ML IV ONE (20:17)
--- NOTE | 2017-05-18 20:33 | PCM.HP ---
H&P History of Present Illness - General Date of Service: 05/18/17 Admit Problem/Dx: Admission Diagnosis/Problem Admission Diagnosis/Problem Urinary tract infection - History of Present Illness Initial Comments - Free Text/Narative: He was seen in the ED today for increasing confusion x 24 hours with a fall today without suspected acute injury He suffered a fall at his home in [place] in January 2017 which resulted in multiple rib fractures and flail chest requiring internal fixation of rib fractures. His course was complicated by pneumonia. He was hospitalized earlier this month for UTI with sepsis and is on Invanz as an outpatient. Last urine and blood cultures were positive for resistent klebsiella pneumoniae R to all antibiotics tested except carbapenems . - Related Data Allergies/Adverse Reactions: Allergies Allergy/AdvReac Type Severity Reaction Status Date / Time No Known Allergies Allergy Verified 05/18/17 18:08 Home Medications: Home Meds Acetaminophen [Tylenol Extra Strength] 1,000 mg PO TID PRN 04/21/17 [History] Amiodarone HCl [Pacerone] 200 mg PO BID 04/21/17 [History] Fluticasone/Salmeterol [Advair Diskus 250-50] 1 each IH BID 04/21/17 [History] traMADol [Ultram] 100 mg PO Q8HR PRN 04/21/17 [History] Aspirin [Ecotrin] 81 mg PO DAILY 05/04/17 [History] Ertapenem [INVanz] 1 gm IV Q24H vial 05/08/17 [Rx] metroNIDAZOLE [Flagyl] 500 mg PO Q8H #42 tablet 05/08/17 [Rx] Cyclobenzaprine [Flexeril] 10 mg PO TID 05/18/17 [History] Past Medical History HEENT History: Reports: Cataract, Impaired Vision Cardiovascular History: Reports: High Cholesterol, Hypertension Other Cardiovascular History: hypokalemia; he had post operative atrial fibrillation. He was placed on amiodarone earlier this year with intent being to use it temporarily as he has since remained in sinus rhythm. Respiratory History: Reports: COPD, Pneumothorax, SOB Other Respiratory History: flail chest. hemothorax Gastrointestinal History: Reports: None Genitourinary History: Reports: None Other Genitourinary History: urosepsis Musculoskeletal History: Reports: None Neurological History: Reports: Head Trauma, Neuropathy, Peripheral Psychiatric History: Reports: None Other Psychiatric History: alcohol dependence with withdrawl delerium Endocrine/Metabolic History: Reports: Obesity/BMI 30+. Denies: Diabetes, Type I , Diabetes, Type II Hematologic History: Reports: None Immunologic History: Reports: None Oncologic (Cancer) History: Reports: None Dermatologic History: Reports: None - Infectious Disease History Infectious Disease History: Reports: None - Past Surgical History Head Surgeries/Procedures: Reports: None HEENT Surgical History: Reports: None Cardiovascular Surgical History: Reports: None Respiratory Surgical History: Reports: None GI Surgical History: Reports: None Male Surgical History: Reports: None Endocrine Surgical History: Reports: None Neurological Surgical History: Reports: None Musculoskeletal Surgical History: Reports: Other (See Below) Other Musculoskeletal Surgeries/Procedures:: multiple rib fractures Dermatological Surgical History: Reports: None Social & Family History - Family History Family Medical History: Noncontributory - Tobacco Use Smoking Status *Q: Former Smoker Used Tobacco, but Quit: Yes Month Tobacco Last Used: 1969 Second Hand Smoke Exposure: No - Caffeine Use Caffeine Use: Reports: Coffee - Alcohol Use Alcohol Use History: Yes Alcohol Use Comment: he currently drinks less than one beer per day. - Recreational Drug Use Recreational Drug Use: No H&P Review of Systems - Review of Systems: Review Of Systems: See Below General: Reports: Other (unable to walk the past twenty four hours; he usually walks with a walker. He had been at [facility] for rehabilitation and came home about 12 days ago. He is sceduled for 14 days of INvanz which is to end next week. ). Denies: Fever HEENT: Denies: Headaches, Sore Throat Pulmonary: Denies: Shortness of Breath, Sputum Cardiovascular: Reports: Edema. Denies: Chest Pain Gastrointestinal: Reports: Other (recently diagnosed with c dif colitis; still on flagyl. ). Denies: Abdominal Pain, Anorexia, Black Stool, Bloody Stool, Hematemesis, Vomiting Skin: Denies: Cyanosis Exam - Exam Exam: See Below - Vital Signs Vital Signs: Last Vital Signs Temp 97.2 F 05/18/17 17:56 Pulse 72 05/18/17 19:06 Resp 18 05/18/17 19:06 BP 143/93 H 05/18/17 19:06 Pulse Ox 96 05/18/17 19:06 Weight: 86.8 kg - Exam General: Alert, Cooperative, Other (oriented x three but slow in repeating the current year) Neck: Supple, Trachea Midline Lungs: Clear to Auscultation, Normal Respiratory Effort Cardiovascular: Regular Rate, Regular Rhythm. No: Systolic Murmur, Diastolic Murmur Abdomen: Soft. No: Distention, Guarding Rectal (Males) Exam: Deferred Extremities: Edema (1-2 plus pedal edema; normal distal capillary refill) Neurological: Cranial Nerves Intact, Normal Speech Neuro Extensive - Mental Status: Alert, Oriented x3 Neuro Extensive - Motor, Sensory, Reflexes: No: Facial palsy (L), Facial Palsy ( R) Psychiatric: No: Agitated - Patient Data Lab Results Last 24 hrs: Laboratory Results - last 24 hr 05/18/17 05/18/17 Range/Units 18:20 18:20 WBC 7.03 (4.0-11.0) K/uL RBC 3.71 L (4.50-5.90) M/uL Hgb 10.1 L (13.0-17.0) g/dL Hct 31.0 L (38.0-50.0) % MCV 83.6 (80.0-98.0) fL MCH 27.2 (27.0-32.0) pg MCHC 32.6 (31.0-37.0) g/dL RDW Std Deviation 58.0 (28.0-62.0) fl RDW Coeff of Jeannie 19 H (11.0-15.0) % Plt Count 295 (150-400) K/uL MPV 9.30 (7.40-12.00) fL Add Manual Diff YES Neutrophils % (Manual) 54 (48.0-80.0) % Lymphocytes % (Manual) 27 (16.0-40.0) % Monocytes % (Manual) 15 (0.0-15.0) % Eosinophils % (Manual) 2 (0.0-7.0) % Basophils % (Manual) 2 H (0.0-1.5) % Nucleated RBC % 0.0 /100WBC Absolute Seg Neuts 3.8 Lymphocytes # (Manual) 1.9 Monocytes # (Manual) 1.1 Eosinophils # (Manual) 0.1 Basophils # (Manual) 0 Nucleated RBCs # 0 K/uL Lactate 2.4 H (0.20-2.00) mmol/L Result Diagrams: 05/18/17 18:20 *Q Meaningful Use (ADM) - VTE *Q VTE Criteria *Q: - Stroke *Q Stroke Criteria *Q: - AMI *Q AMI Criteria *Q: Problem List Initiated/Reviewed/Updated: Yes Orders Last 24hrs: Active Orders 24 hr Category Date Time Status Patient Status [ADT] Stat ADT 05/18/17 20:17 Active Chest 1V Frontal [CR] Stat Exams 05/18/17 18:43 Taken Head wo Cont [CT] Stat Exams 05/18/17 18:06 Taken CULTURE BLOOD [BC] Stat Lab 05/18/17 18:20 Received CULTURE BLOOD [BC] Stat Lab 05/18/17 18:32 Received CULTURE URINE [RM] Stat Lab 05/18/17 11:05 Received Piperacillin/Tazobactam [Piperacil-Tazobact] 4.5 gm Med 05/18/17 20:17 Active Sodium Chloride 0.9% [Normal Saline] 100 ml IV ONETIME Blood Culture x2 Reflex Set [OM.PC] Stat Oth 05/18/17 18:07 Ordered Medication Orders Piperacillin Sod/Tazobactam (Sod 4.5 gm/ Sodium Chloride) 100 mls @ 100 mls/hr IV ONETIME ONE Stop: 05/18/17 21:16 Assessment/Plan Comment:: suspected recurrent uti with mental status changes; must consider sepsis. admit see orders code level I ; confirmed with patient's . will change from invanz ( ertapenem ) to meropenem for broader spectrum activity pending culture results. Mendoza Enciso MD
[2017-05-18] MEDS ORDERED: Docusate Sodium 100 MG Cap PO PRN (20:43)
[2017-05-18] MEDS ORDERED: Acetaminophen 325 MG Tab PO PRN (20:43)
[2017-05-18] MEDS ORDERED: Ondansetron 4 MG Tab.DIS PO PRN (20:43)
[2017-05-18] MEDS ORDERED: Meropenem 1 GM in Sodium Chloride 0.9% 100 ML IV SCH ×2 (21:00→21:42)
[2017-05-18] MEDS: Cyclobenzaprine 10 MG Tab PO SCH (21:37)
[2017-05-18] MEDS: Temazepam 15 MG Cap PO PRN (21:38)
[2017-05-18] MEDS: metroNIDAZOLE 250 MG Tab PO SCH (21:38)
[2017-05-18] MEDS: traMADol 50 MG Tab PO PRN (21:38)
[2017-05-18] MEDS: Fluticasone/Salmeterol 250-50 MCG Inhalation Powder 14/Diskus INH SCH (21:40)
[2017-05-18] MEDS: NS + KCl 20mEq/L 1,000 ML IV SCH (21:46)
[2017-05-18] MEDS: Meropenem 1 GM in Sodium Chloride 0.9% 100 ML IV SCH (21:49)
[2017-05-19] MEDS: Cyclobenzaprine 10 MG Tab PO SCH ×3 (05:04→21:45)
[2017-05-19] MEDS: Meropenem 1 GM in Sodium Chloride 0.9% 100 ML IV SCH ×3 (05:04→21:25)
[2017-05-19] MEDS: metroNIDAZOLE 250 MG Tab PO SCH ×3 (05:04→21:44)
[2017-05-19 06:13] LABS: CHLORIDE,CL 108 mmol/L (98-110); SODIUM,NA 141 mmol/L (136-146)
[2017-05-19] MEDS: NS + KCl 20mEq/L 1,000 ML IV SCH ×2 (07:34→19:02)
[2017-05-19] MEDS ORDERED: Potassium Chloride 20 MEQ Tab.ER PO ONE ×2 (08:42→17:30)
[2017-05-19] MEDS ORDERED: Magnesium Sulfate/Water 4 GM in Premix Bag 1 BAG IV ONE (08:52)
--- NOTE | 2017-05-19 09:19 | PCM.PN ---
- General Info Date of Service: 05/19/17 Subjective Update: no new complaints. - Patient Data Vitals - most recent: Last Vital Signs Temp 97.5 F 05/19/17 08:00 Pulse 88 05/19/17 08:00 Resp 20 05/19/17 08:00 BP 146/88 H 05/19/17 08:00 Pulse Ox 94 L 05/19/17 08:00 Weight - most recent: 86.8 kg I&O - last 24 hours: Intake & Output 05/18/17 05/19/17 05/19/17 22:59 06:59 14:59 Intake Total 1128 999 Output Total 350 Balance 778 999 Lab Results last 24 hrs: Laboratory Results - last 24 hr 05/19/17 05/19/17 05/19/17 Range/Units 00:22 04:48 05:52 WBC Cancelled RBC Cancelled Hgb Cancelled Hct Cancelled MCV Cancelled MCH Cancelled MCHC Cancelled RDW Std Deviation Cancelled RDW Coeff of Jeannie Cancelled Plt Count Cancelled MPV Cancelled Neut % (Auto) Cancelled Lymph % (Auto) Cancelled [place] % (Auto) Cancelled Eos % (Auto) Cancelled Baso % (Auto) Cancelled Neut # (Auto) Cancelled Lymph # (Auto) Cancelled [place] # (Auto) Cancelled Eos # (Auto) Cancelled Baso # (Auto) Cancelled Add Manual Diff Cancelled Nucleated RBC % Cancelled Nucleated RBCs # Cancelled Lactate 1.4 (0.20-2.00) mmol/L Sodium 141 (136-146) mmol/L Potassium 2.6 L (3.5-5.1) mmol/L Chloride 108 (98-110) mmol/L Carbon Dioxide 24 (21-31) mmol/L BUN 5 L (6.0-23.0) mg/dL Creatinine 0.8 (0.6-1.5) mg/dL Est Cr Clr Drug Dosing 92.82 mL/min Estimated GFR (MDRD) > 60.0 ml/min Glucose 88 (60-110) mg/dL Calcium 7.5 L (8.8-10.8) mg/dL Magnesium 0.8 L (1.5-2.3) mEq/L Total Bilirubin 0.5 (0.1-1.5) mg/dL AST 19 (5-40) IU/L ALT 12 (8-54) IU/L Alkaline Phosphatase 139 (40-150) Total Protein 5.8 L (6.0-8.0) g/dL Albumin 2.3 L (3.4-4.8) g/dL Globulin 3.5 (2.0-3.5) g/dL Albumin/Globulin Ratio 0.7 L (1.3-2.8) 05/19/17 Range/Units 05:52 WBC 7.21 RBC 4.07 L Hgb 11.2 L Hct 33.8 L MCV 83.0 MCH 27.5 MCHC 33.1 RDW Std Deviation 58.7 RDW Coeff of Jeannie 19 H Plt Count 349 MPV 9.50 Neut % (Auto) 64.7 Lymph % (Auto) 18.0 [place] % (Auto) 13.5 Eos % (Auto) 2.8 Baso % (Auto) 1.0 Neut # (Auto) 4.7 Lymph # (Auto) 1.3 [place] # (Auto) 1.0 H Eos # (Auto) 0.2 Baso # (Auto) 0.1 Add Manual Diff Nucleated RBC % 0.0 Nucleated RBCs # 0 Lactate (0.20-2.00) mmol/L Sodium (136-146) mmol/L Potassium (3.5-5.1) mmol/L Chloride (98-110) mmol/L Carbon Dioxide (21-31) mmol/L BUN (6.0-23.0) mg/dL Creatinine (0.6-1.5) mg/dL Est Cr Clr Drug Dosing mL/min Estimated GFR (MDRD) ml/min Glucose (60-110) mg/dL Calcium (8.8-10.8) mg/dL Magnesium (1.5-2.3) mEq/L Total Bilirubin (0.1-1.5) mg/dL AST (5-40) IU/L ALT (8-54) IU/L Alkaline Phosphatase (40-150) Total Protein (6.0-8.0) g/dL Albumin (3.4-4.8) g/dL Globulin (2.0-3.5) g/dL Albumin/Globulin Ratio (1.3-2.8) Med Orders - Current: Current Medications Acetaminophen (Tylenol) 650 mg PO Q4H PRN PRN Reason: Pain (Mild 1-3)/fever Albuterol/Ipratropium (Duoneb 3.0-0.5 Mg/3 Ml) 3 ml NEB Q4HRRT PRN PRN Reason: Wheezing Aspirin (Halfprin) 81 mg PO DAILY [facility] Cyclobenzaprine HCl (Flexeril) 10 mg PO TID [facility] Last Admin: 05/19/17 05:04 Dose: 10 mg Docusate Sodium (Colace) 100 mg PO BID PRN PRN Reason: Constipation Last Admin: 05/18/17 21:37 Dose: 100 mg Heparin Sodium (Porcine) (Heparin Sodium) 5,000 units SUBCUT Q8H [facility] Potassium Chloride/Sodium Chloride (Normal Saline With 20 Meq Kcl) 1,000 mls @ 125 mls/hr IV ASDIRECTED [facility] Last Admin: 05/19/17 07:34 Dose: 125 mls/hr Meropenem 1 gm/ Sodium (Chloride) 100 mls @ 200 mls/hr IV Q8H [facility] Last Admin: 05/19/17 05:04 Dose: 200 mls/hr Magnesium Sulfate 4 gm/ Premix 100 mls @ 50 mls/hr IV ONETIME ONE Stop: 05/19/17 10:51 Metronidazole (Metronidazole) 500 mg PO Q8H [facility] Last Admin: 05/19/17 05:04 Dose: 500 mg Ondansetron HCl (Zofran Odt) 4 mg PO Q4H PRN PRN Reason: nausea, able to take PO Potassium Chloride (Klor-Con M20) 40 meq PO ONETIME ONE Stop: 05/19/17 17:31 Fluticasone/Salmeterol (Advair Diskus 250-50) 0 puff INH BID [facility] Last Admin: 05/18/17 21:40 Dose: 1 puff Temazepam (Restoril) 15 mg PO BEDTIME PRN PRN Reason: Sleep Last Admin: 05/18/17 21:38 Dose: 15 mg Tramadol HCl (Ultram) 100 mg PO Q8HR PRN PRN Reason: Pain Last Admin: 05/18/17 21:38 Dose: 100 mg Discontinued Medications Piperacillin Sod/Tazobactam (Sod 4.5 gm/ Sodium Chloride) 100 mls @ 100 mls/hr IV ONETIME ONE Stop: 05/18/17 21:16 Last Admin: 05/18/17 20:36 Dose: 100 mls/hr Meropenem 1 gm/ Sodium (Chloride) 100 mls @ 200 mls/hr IV Q8H [facility] Last Admin: 05/18/17 22:33 Dose: Not Given Meropenem 1 gm/ Sodium (Chloride) 100 mls @ 200 mls/hr IV Q8H [facility] Potassium Chloride (Klor-Con M20) 40 meq PO ONETIME ONE Stop: 05/19/17 08:43 - Exam General: alert, cooperative Lungs: Normal respiratory effort Abdomen: soft, no tenderness - Problem List & Annotations (1) UTI (urinary tract infection) SNOMED Code(s): 23634014 Code(s): N39.0 - URINARY TRACT INFECTION, SITE NOT SPECIFIED Status: Acute Current Visit: Yes (2) Hypomagnesemia SNOMED Code(s): 931802392 Code(s): E83.42 - HYPOMAGNESEMIA Status: Acute Current Visit: Yes (3) Hypokalemia SNOMED Code(s): 35510594 Code(s): E87.6 - HYPOKALEMIA Status: Acute Current Visit: Yes - Problem List Review Problem List Initiated/Reviewed/Updated: Yes - My Orders Last 24 Hours: My Active Orders 05/18/17 20:43 Oxygen Therapy [RC] PRN VTE/DVT Education [RC] PER UNIT ROUTINE Vital Signs [RC] Q4H Acetaminophen [Tylenol] 650 mg PO Q4H PRN Docusate Sodium [Colace] 100 mg PO BID PRN Ondansetron [Zofran ODT] 4 mg PO Q4H PRN Temazepam [Restoril] 15 mg PO BEDTIME PRN 05/18/17 20:46 traMADol [Ultram] 100 mg PO Q8HR PRN 05/18/17 20:47 Telemetry Monitoring [Cardiac Monitoring] [RC] Q8H Albuterol/Ipratropium [DuoNeb 3.0-0.5 MG/3 ML] 3 ml NEB Q4HRRT PRN 05/18/17 20:48 RT Aerosol Therapy [RC] ASDIRECTED 05/18/17 21:00 Fluticasone/Salmeterol [Advair Diskus 250-50] 0 puff INH BID Meropenem [Merrem] 1 gm Sodium Chloride 0.9% [Normal Saline] 100 ml IV Q8H metroNIDAZOLE 500 mg PO Q8H 05/18/17 21:20 Oxygen Therapy [RC] PRN VTE/DVT Education [RC] PER UNIT ROUTINE Vital Signs [RC] Q4H 05/18/17 21:22 Resuscitation Status Routine 05/18/17 21:30 NS + KCl 20mEq/L [Normal Saline with 20 mEq KCl] 1,000 ml IV ASDIRECTED 05/18/17 22:00 Cyclobenzaprine [Flexeril] 10 mg PO TID 05/18/17 Dinner Regular Diet [DIET] 05/19/17 08:00 Echo Comp wo Cont [US] Routine 05/19/17 08:52 Magnesium Sulfate/Water [Magnesium Sulfate 4 GM in Water 100 ML] 4 gm Premix Bag 1 bag IV ONETIME 05/19/17 09:00 Aspirin [Halfprin] 81 mg PO DAILY 05/19/17 17:30 Potassium Chloride [Klor-Con M20] 40 meq PO ONETIME ONE 05/19/17 21:00 Heparin Sodium 5,000 units SUBCUT Q8H 05/20/17 05:00 MAGNESIUM [CHEM] Routine 05/20/17 05:11 CBC WITH AUTO DIFF [HEME] AM COMPREHENSIVE METABOLIC PN,CMP [CHEM] AM 05/21/17 05:11 CBC WITH AUTO DIFF [HEME] AM COMPREHENSIVE METABOLIC PN,CMP [CHEM] AM - Plan Plan:: suspected recurrent uti with mental status changes; must consider sepsis. admit see orders code level I ; confirmed with patient's . will change from invanz ( ertapenem ) to meropenem for broader spectrum activity pending culture results. Mendoza Enciso MD 05/19/17 Replace K and Mg recheck in am continue meropenem awaiting urine/blood cultures echo done today. Mendoza Enciso MD
--- NOTE | 2017-05-19 09:41 | CR ---
EXAM DATE: 05/18/17 PATIENT'S AGE: 67 Patient: COURTNEY PAEZ Facility: [place], [place] Site . Site : 1950 Study: XRay Chest [id number]/22/2017 7:01:29 PM Ordering Physician: Doctor Patrick Final Report: INDICATION: pain, sob TECHNIQUE: Chest 1 view COMPARISON: May 04, 2017. FINDINGS: Cardiovascular and mediastinum: The cardiac silhouette. Mediastinum is within normal limits. Lungs and pleural space: Minimal scarring and hyperinflation. Stable blunting of the right costophrenic sulcus which likely represents pleural reactive change. No sign of pleural effusion. No pneumothorax. Bones: Stable multilevel degenerative changes. Stable multiple postsurgical changes along with right the ribs. Other: Left-sided PICC line catheter with the distal tip overlying the lower SVC. IMPRESSION: 1. Stable examination with no acute cardiopulmonary disease. 2. Left-sided PICC line catheter with the distal tip overlying the lower SVC Dictated by Reynaldo Tee MD @ 05/18/2017 7:38:22 PM Dictated by: Reynaldo Tee MD @ 05/18/2017 19:38:35 (Electronic Signature) Report Signed by Proxy. MARIA L
--- NOTE | 2017-05-19 09:42 | CT ---
EXAM DATE: 05/18/17 PATIENT'S AGE: 67 Patient: COURTNEY PAEZ Facility: [place], [place] Site . Site : 1950 Study: CT Head wo cont [id number]/22/2017 7:02:28 PM Ordering Physician: Doctor Patrick Final Report: INDICATION: confusion, difficulty/inability to walk for 3 days TECHNIQUE: CT Head without contrast. COMPARISON: 04/21/2017 FINDINGS: There is no sign of intracranial hemorrhage or mass effect. Diffuse cerebral atrophy with associated ex vacuo dilatation of the ventricular system. Nonspecific low-attenuation along the periventricular white matter, most likely related to chronic microvascular disease. Ventricles and sulci are symmetric and midline. The castillo-white differentiation is preserved. No abnormal intra- axial or extra-axial fluid collection. No acute disease of the visualized paranasal sinuses and mastoid air cells. No fracture evident. No scalp hematoma/ laceration. IMPRESSION: No acute intracranial process. Dictated by: Reynaldo Tee MD @ 05/18/2017 19:20:26 (Electronic Signature) Report Signed by Proxy. [facility]
[2017-05-19] MEDS: Aspirin 81 MG Tab.EC PO SCH (10:02)
[2017-05-19] MEDS: Fluticasone/Salmeterol 250-50 MCG Inhalation Powder 14/Diskus INH SCH ×2 (11:30→21:15)
[2017-05-19] MEDS: Heparin Sodium 5,000 Units/ML Vial SUBCUT SCH (21:42)
[2017-05-19] MEDS: Temazepam 15 MG Cap PO PRN (22:40)
[2017-05-20] MEDS: traMADol 50 MG Tab PO PRN (01:02)
[2017-05-20] MEDS: NS + KCl 20mEq/L 1,000 ML IV SCH ×3 (04:02→23:35)
[2017-05-20] MEDS: metroNIDAZOLE 250 MG Tab PO SCH ×3 (04:07→20:09)
[2017-05-20] MEDS: Heparin Sodium 5,000 Units/ML Vial SUBCUT SCH ×3 (04:08→20:08)
[2017-05-20] MEDS: Meropenem 1 GM in Sodium Chloride 0.9% 100 ML IV SCH ×3 (04:20→20:09)
[2017-05-20] MEDS: Cyclobenzaprine 10 MG Tab PO SCH ×3 (05:20→22:03)
[2017-05-20 06:48] LABS: CHLORIDE,CL 108 mmol/L (98-110); SODIUM,NA 141 mmol/L (136-146)
[2017-05-20] MEDS: Aspirin 81 MG Tab.EC PO SCH (08:52)
[2017-05-20] MEDS: Fluticasone/Salmeterol 250-50 MCG Inhalation Powder 14/Diskus INH SCH ×2 (08:55→22:04)
[2017-05-20] MEDS ORDERED: Potassium Chloride 20 MEQ Tab.ER PO ONE ×2 (10:06→18:00)
[2017-05-20] MEDS ORDERED: Magnesium Sulfate/Water 4 GM in Premix Bag 1 BAG IV ONE (12:18)
--- NOTE | 2017-05-20 12:54 | PCM.PN ---
- General Info Date of Service: 05/20/17 Subjective Update: His notes that he has had periods of confusion since his last surgery in February. Nurse reports hallucinations episodically last night He is eating OK. He was on seroquel 25 mg bid previously when he was at [facility]. He tolerated this well. - Patient Data Vitals - most recent: Last Vital Signs Temp 96.9 F 05/20/17 11:42 Pulse 114 H 05/20/17 11:42 Resp 20 05/20/17 11:42 BP 137/91 H 05/20/17 11:42 Pulse Ox 99 05/20/17 11:42 Weight - most recent: 86.8 kg I&O - last 24 hours: Intake & Output 05/19/17 05/20/17 05/20/17 22:59 06:59 14:59 Intake Total 1839 1600 Output Total 820 650 Balance 1019 950 Lab Results last 24 hrs: Laboratory Results - last 24 hr 05/20/17 05/20/17 05/20/17 Range/Units 06:06 06:06 06:06 WBC 6.72 (4.0-11.0) K/uL RBC 3.51 L (4.50-5.90) M/uL Hgb 9.8 L (13.0-17.0) g/dL Hct 29.5 L (38.0-50.0) % MCV 84.0 (80.0-98.0) fL MCH 27.9 (27.0-32.0) pg MCHC 33.2 (31.0-37.0) g/dL RDW Std Deviation 60.9 (28.0-62.0) fl RDW Coeff of Jeannie 20 H (11.0-15.0) % Plt Count 348 (150-400) K/uL MPV 9.90 (7.40-12.00) fL Neut % (Auto) 61.0 (48.0-80.0) % Lymph % (Auto) 20.1 (16.0-40.0) % [place] % (Auto) 14.1 (0.0-15.0) % Eos % (Auto) 3.3 (0.0-7.0) % Baso % (Auto) 1.5 (0.0-1.5) % Neut # (Auto) 4.1 (1.4-5.7) K/uL Lymph # (Auto) 1.4 (0.6-2.4) K/uL [place] # (Auto) 1.0 H (0.0-0.8) K/uL Eos # (Auto) 0.2 (0.0-0.7) K/uL Baso # (Auto) 0.1 (0.0-0.1) K/uL Nucleated RBC % 0.0 /100WBC Nucleated RBCs # 0 K/uL Sodium 141 (136-146) mmol/L Potassium 3.0 L (3.5-5.1) mmol/L Chloride 108 (98-110) mmol/L Carbon Dioxide 25 (21-31) mmol/L BUN 3 L (6.0-23.0) mg/dL Creatinine 0.7 (0.6-1.5) mg/dL Est Cr Clr Drug Dosing 106.08 mL/min Estimated GFR (MDRD) > 60.0 ml/min Glucose 85 (60-110) mg/dL Calcium 7.2 L (8.8-10.8) mg/dL Magnesium 1.3 L (1.5-2.3) mEq/L Total Bilirubin 0.5 (0.1-1.5) mg/dL AST 15 (5-40) IU/L ALT 11 (8-54) IU/L Alkaline Phosphatase 136 (40-150) Total Protein 5.3 L (6.0-8.0) g/dL Albumin 2.1 L (3.4-4.8) g/dL Globulin 3.2 (2.0-3.5) g/dL Albumin/Globulin Ratio 0.7 L (1.3-2.8) Med Orders - Current: Current Medications Acetaminophen (Tylenol) 650 mg PO Q4H PRN PRN Reason: Pain (Mild 1-3)/fever Albuterol/Ipratropium (Duoneb 3.0-0.5 Mg/3 Ml) 3 ml NEB Q4HRRT PRN PRN Reason: Wheezing Aspirin (Halfprin) 81 mg PO DAILY [facility] Last Admin: 05/20/17 08:52 Dose: 81 mg Cyclobenzaprine HCl (Flexeril) 10 mg PO TID [facility] Last Admin: 05/20/17 05:20 Dose: 10 mg Docusate Sodium (Colace) 100 mg PO BID PRN PRN Reason: Constipation Last Admin: 05/18/17 21:37 Dose: 100 mg Heparin Sodium (Porcine) (Heparin Sodium) 5,000 units SUBCUT Q8H [facility] Last Admin: 05/20/17 12:40 Dose: 5,000 units Potassium Chloride/Sodium Chloride (Normal Saline With 20 Meq Kcl) 1,000 mls @ 125 mls/hr IV ASDIRECTED [facility] Last Admin: 05/20/17 04:02 Dose: 125 mls/hr Meropenem 1 gm/ Sodium (Chloride) 100 mls @ 200 mls/hr IV Q8H [facility] Last Infusion: 05/20/17 04:50 Dose: Infused Magnesium Sulfate 4 gm/ Premix 100 mls @ 50 mls/hr IV ONETIME ONE Stop: 05/20/17 14:17 Last Admin: 05/20/17 12:40 Dose: 50 mls/hr Metronidazole (Metronidazole) 500 mg PO Q8H [facility] Last Admin: 05/20/17 12:40 Dose: 500 mg Ondansetron HCl (Zofran Odt) 4 mg PO Q4H PRN PRN Reason: nausea, able to take PO Potassium Chloride (Klor-Con M20) 40 meq PO ONETIME ONE Stop: 05/20/17 18:01 Quetiapine Fumarate (Seroquel) 25 mg PO BID [facility] Fluticasone/Salmeterol (Advair Diskus 250-50) 0 puff INH BID [facility] Last Admin: 05/20/17 08:55 Dose: 1 puff Temazepam (Restoril) 15 mg PO BEDTIME PRN PRN Reason: Sleep Last Admin: 05/19/17 22:40 Dose: 15 mg Tramadol HCl (Ultram) 100 mg PO Q8HR PRN PRN Reason: Pain Last Admin: 05/20/17 01:02 Dose: 100 mg Discontinued Medications Piperacillin Sod/Tazobactam (Sod 4.5 gm/ Sodium Chloride) 100 mls @ 100 mls/hr IV ONETIME ONE Stop: 05/18/17 21:16 Last Admin: 05/18/17 20:36 Dose: 100 mls/hr Meropenem 1 gm/ Sodium (Chloride) 100 mls @ 200 mls/hr IV Q8H [facility] Last Admin: 05/18/17 22:33 Dose: Not Given Meropenem 1 gm/ Sodium (Chloride) 100 mls @ 200 mls/hr IV Q8H [facility] Magnesium Sulfate 4 gm/ Premix 100 mls @ 50 mls/hr IV ONETIME ONE Stop: 05/19/17 10:51 Last Admin: 05/19/17 10:02 Dose: 50 mls/hr Potassium Chloride (Klor-Con M20) 40 meq PO ONETIME ONE Stop: 05/19/17 08:43 Last Admin: 05/19/17 10:02 Dose: 40 meq Potassium Chloride (Klor-Con M20) 40 meq PO ONETIME ONE Stop: 05/19/17 17:31 Last Admin: 05/19/17 17:35 Dose: 40 meq Potassium Chloride (Klor-Con M20) 40 meq PO ONETIME ONE Stop: 05/20/17 10:07 Last Admin: 05/20/17 11:05 Dose: 40 meq - Exam General: alert, cooperative, other (speech seems slightly confused) Lungs: Normal respiratory effort Abdomen: soft, no tenderness Psy/Mental Status: alert. No: agitated Physical Findings Comments:: periodic non purposeful picking at objects. occasional myoclonic jerks UE's - Problem List & Annotations (1) UTI (urinary tract infection) SNOMED Code(s): 90667382 Code(s): N39.0 - URINARY TRACT INFECTION, SITE NOT SPECIFIED Status: Acute Current Visit: Yes (2) Hypomagnesemia SNOMED Code(s): 288965668 Code(s): E83.42 - HYPOMAGNESEMIA Status: Acute Current Visit: Yes (3) Hypokalemia SNOMED Code(s): 62547656 Code(s): E87.6 - HYPOKALEMIA Status: Acute Current Visit: Yes - Problem List Review Problem List Initiated/Reviewed/Updated: Yes - My Orders Last 24 Hours: My Active Orders 05/19/17 21:00 Heparin Sodium 5,000 units SUBCUT Q8H 05/20/17 12:18 Magnesium Sulfate/Water [Magnesium Sulfate 4 GM in Water 100 ML] 4 gm Premix Bag 1 bag IV ONETIME 05/20/17 12:45 QUEtiapine [SEROquel] 25 mg PO BID 05/20/17 18:00 Potassium Chloride [Klor-Con M20] 40 meq PO ONETIME ONE 05/21/17 05:11 CBC WITH AUTO DIFF [HEME] AM COMPREHENSIVE METABOLIC PN,CMP [CHEM] AM MAGNESIUM [CHEM] AM 05/22/17 05:11 MAGNESIUM [CHEM] AM - Plan Plan:: suspected recurrent uti with mental status changes; must consider sepsis. admit see orders code level I ; confirmed with patient's . will change from invanz ( ertapenem ) to meropenem for broader spectrum activity pending culture results. Mendoza Enciso MD 05/19/17 Replace K and Mg recheck in am continue meropenem awaiting urine/blood cultures echo done today. Mendoza Enciso MD 05/20/2017 I discussed with his concerning his mental functioning. He has significant brain volume loss on CT head. We discussed some type of post operative or post septic encephalopathy vs unmasking of underlying early dementia brought on by acute illness and unfamiliar surroundings. Will replace K and Mg continue meropenem echo reviewed showed diastolic dysfunction. may need mcc placement. reviewed urine and blood cultures Mendoza Enciso MD
[2017-05-20] MEDS: QUEtiapine 25 MG Tab PO SCH ×2 (13:03→20:08)
[2017-05-20] MEDS: Temazepam 15 MG Cap PO PRN (22:04)
[2017-05-20] MEDS: Albuterol/Ipratropium 3.0-0.5 MG/3 ML Neb Soln NEB PRN (22:11)
[2017-05-21] MEDS: Heparin Sodium 5,000 Units/ML Vial SUBCUT SCH ×3 (04:42→20:33)
[2017-05-21] MEDS: metroNIDAZOLE 250 MG Tab PO SCH (04:43)
[2017-05-21] MEDS: Meropenem 1 GM in Sodium Chloride 0.9% 100 ML IV SCH (04:44)
[2017-05-21] MEDS: Cyclobenzaprine 10 MG Tab PO SCH ×3 (05:08→21:22)
[2017-05-21 06:49] LABS: CHLORIDE,CL 111 mmol/L (98-110); SODIUM,NA 144 mmol/L (136-146)
[2017-05-21] MEDS: NS + KCl 20mEq/L 1,000 ML IV SCH (08:22)
[2017-05-21] MEDS: Fluticasone/Salmeterol 250-50 MCG Inhalation Powder 14/Diskus INH SCH ×2 (08:35→21:14)
[2017-05-21] MEDS: Aspirin 81 MG Tab.EC PO SCH (09:13)
[2017-05-21] MEDS: QUEtiapine 25 MG Tab PO SCH (09:13)
[2017-05-21] MEDS ORDERED: Magnesium Sulfate/Water 4 GM in Premix Bag 1 BAG IV ONE (10:54)
[2017-05-21] MEDS: Albuterol/Ipratropium 3.0-0.5 MG/3 ML Neb Soln NEB PRN ×2 (11:07→20:11)
--- NOTE | 2017-05-21 12:19 | PCM.PN ---
- General Info Date of Service: 05/21/17 Subjective Update: He was quite confused with some agitation last pm. Extra seroquel was ordered. - Patient Data Vitals - most recent: Last Vital Signs Temp 97.6 F 05/21/17 11:31 Pulse 106 H 05/21/17 11:31 Resp 20 05/21/17 11:31 BP 120/84 05/21/17 11:31 Pulse Ox 98 05/21/17 11:31 Weight - most recent: 86.8 kg I&O - last 24 hours: Intake & Output 05/20/17 05/21/17 05/21/17 22:59 06:59 14:59 Intake Total 1770 1299 Output Total 600 650 Balance 1170 649 Lab Results last 24 hrs: Laboratory Results - last 24 hr 05/21/17 05/21/17 05/21/17 Range/Units 05:50 05:50 11:37 WBC 5.65 (4.0-11.0) K/uL RBC 3.61 L (4.50-5.90) M/uL Hgb 9.8 L (13.0-17.0) g/dL Hct 30.6 L (38.0-50.0) % MCV 84.8 (80.0-98.0) fL MCH 27.1 (27.0-32.0) pg MCHC 32.0 (31.0-37.0) g/dL RDW Std Deviation 62.7 H (28.0-62.0) fl RDW Coeff of Jeannie 20 H (11.0-15.0) % Plt Count 328 (150-400) K/uL MPV 9.80 (7.40-12.00) fL Neut % (Auto) 56.6 (48.0-80.0) % Lymph % (Auto) 23.0 (16.0-40.0) % [place] % (Auto) 14.2 (0.0-15.0) % Eos % (Auto) 4.1 (0.0-7.0) % Baso % (Auto) 2.1 H (0.0-1.5) % Neut # (Auto) 3.2 (1.4-5.7) K/uL Lymph # (Auto) 1.3 (0.6-2.4) K/uL [place] # (Auto) 0.8 (0.0-0.8) K/uL Eos # (Auto) 0.2 (0.0-0.7) K/uL Baso # (Auto) 0.1 (0.0-0.1) K/uL Nucleated RBC % 0.0 /100WBC Nucleated RBCs # 0 K/uL Sodium 144 (136-146) mmol/L Potassium 4.0 (3.5-5.1) mmol/L Chloride 111 H (98-110) mmol/L Carbon Dioxide 24 (21-31) mmol/L BUN 3 L (6.0-23.0) mg/dL Creatinine 0.7 (0.6-1.5) mg/dL Est Cr Clr Drug Dosing 106.08 mL/min Estimated GFR (MDRD) > 60.0 ml/min Glucose 107 (60-110) mg/dL Calcium 7.3 L (8.8-10.8) mg/dL Magnesium 1.3 L (1.5-2.3) mEq/L Total Bilirubin 0.4 (0.1-1.5) mg/dL AST 14 (5-40) IU/L ALT 11 (8-54) IU/L Alkaline Phosphatase 142 (40-150) Ammonia 71 H (14-68) UG/DL Total Protein 5.1 L (6.0-8.0) g/dL Albumin 2.1 L (3.4-4.8) g/dL Globulin 3.0 (2.0-3.5) g/dL Albumin/Globulin Ratio 0.7 L (1.3-2.8) Med Orders - Current: Current Medications Acetaminophen (Tylenol) 650 mg PO Q4H PRN PRN Reason: Pain (Mild 1-3)/fever Albuterol/Ipratropium (Duoneb 3.0-0.5 Mg/3 Ml) 3 ml NEB Q4HRRT PRN PRN Reason: Wheezing Last Admin: 05/21/17 11:07 Dose: 3 ml Aspirin (Halfprin) 81 mg PO DAILY [facility] Last Admin: 05/21/17 09:13 Dose: 81 mg Cyclobenzaprine HCl (Flexeril) 10 mg PO TID [facility] Last Admin: 05/21/17 05:08 Dose: 10 mg Docusate Sodium (Colace) 100 mg PO BID PRN PRN Reason: Constipation Last Admin: 05/18/17 21:37 Dose: 100 mg Heparin Sodium (Porcine) (Heparin Sodium) 5,000 units SUBCUT Q8H [facility] Last Admin: 05/21/17 04:42 Dose: 5,000 units Potassium Chloride/Sodium Chloride (Normal Saline With 20 Meq Kcl) 1,000 mls @ 50 mls/hr IV ASDIRECTED [facility] Last Admin: 05/21/17 08:22 Dose: 125 mls/hr Magnesium Sulfate 4 gm/ Premix 100 mls @ 50 mls/hr IV ONETIME ONE Stop: 05/21/17 12:53 Lorazepam (Ativan) 1 mg IVPUSH Q6H PRN PRN Reason: Agitation Ondansetron HCl (Zofran Odt) 4 mg PO Q4H PRN PRN Reason: nausea, able to take PO Quetiapine Fumarate (Seroquel) 75 mg PO BEDTIME [facility] Quetiapine Fumarate (Seroquel) 25 mg PO DAILY [facility] Fluticasone/Salmeterol (Advair Diskus 250-50) 0 puff INH BID [facility] Last Admin: 05/21/17 08:35 Dose: 1 puff Temazepam (Restoril) 15 mg PO BEDTIME PRN PRN Reason: Sleep Last Admin: 05/20/17 22:04 Dose: 15 mg Tramadol HCl (Ultram) 100 mg PO Q8HR PRN PRN Reason: Pain Last Admin: 05/20/17 01:02 Dose: 100 mg Wound Care/Dressing Products (Duoderm Cgf) 1 each TOP ASDIRECTED PRN PRN Reason: Wound Care Discontinued Medications Piperacillin Sod/Tazobactam (Sod 4.5 gm/ Sodium Chloride) 100 mls @ 100 mls/hr IV ONETIME ONE Stop: 05/18/17 21:16 Last Admin: 05/18/17 20:36 Dose: 100 mls/hr Meropenem 1 gm/ Sodium (Chloride) 100 mls @ 200 mls/hr IV Q8H [facility] Last Admin: 05/18/17 22:33 Dose: Not Given Meropenem 1 gm/ Sodium (Chloride) 100 mls @ 200 mls/hr IV Q8H [facility] Meropenem 1 gm/ Sodium (Chloride) 100 mls @ 200 mls/hr IV Q8H [facility] Last Admin: 05/21/17 04:44 Dose: 200 mls/hr Magnesium Sulfate 4 gm/ Premix 100 mls @ 50 mls/hr IV ONETIME ONE Stop: 05/19/17 10:51 Last Admin: 05/19/17 10:02 Dose: 50 mls/hr Magnesium Sulfate 4 gm/ Premix 100 mls @ 50 mls/hr IV ONETIME ONE Stop: 05/20/17 14:17 Last Admin: 05/20/17 12:40 Dose: 50 mls/hr Metronidazole (Metronidazole) 500 mg PO Q8H [facility] Last Admin: 05/21/17 04:43 Dose: 500 mg Potassium Chloride (Klor-Con M20) 40 meq PO ONETIME ONE Stop: 05/19/17 08:43 Last Admin: 05/19/17 10:02 Dose: 40 meq Potassium Chloride (Klor-Con M20) 40 meq PO ONETIME ONE Stop: 05/19/17 17:31 Last Admin: 05/19/17 17:35 Dose: 40 meq Potassium Chloride (Klor-Con M20) 40 meq PO ONETIME ONE Stop: 05/20/17 10:07 Last Admin: 05/20/17 11:05 Dose: 40 meq Potassium Chloride (Klor-Con M20) 40 meq PO ONETIME ONE Stop: 05/20/17 18:01 Last Admin: 05/20/17 18:43 Dose: 40 meq Quetiapine Fumarate (Seroquel) 25 mg PO BID [facility] Last Admin: 05/21/17 09:13 Dose: 25 mg Quetiapine Fumarate (Seroquel) 50 mg PO ONETIME ONE Stop: 05/20/17 22:24 Last Admin: 05/20/17 22:33 Dose: 50 mg Comments:: he is quite confused with very confused speech. He is talking about buying a car. 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, 731646465 Code(s): G25.3 - MYOCLONUS Status: Acute Current Visit: Yes (5) Dementia SNOMED Code(s): 67759502 Code(s): F03.90 - UNSPECIFIED DEMENTIA WITHOUT BEHAVIORAL DISTURBANCE Status: Acute Current Visit: Yes (6) Pressure sore SNOMED Code(s): 799897467 Code(s): L89.90 - PRESSURE ULCER OF UNSPECIFIED SITE, UNSPECIFIED STAGE Status: Acute Current Visit: Yes - Problem List Review Problem List Initiated/Reviewed/Updated: Yes - My Orders Last 24 Hours: My Active Orders 05/20/17 22:23 LORazepam [Ativan] 1 mg IVPUSH Q6H PRN 05/21/17 10:54 Magnesium Sulfate/Water [Magnesium Sulfate 4 GM in Water 100 ML] 4 gm Premix Bag 1 bag IV ONETIME 05/21/17 11:30 UA W/MICROSCOPIC [URIN] Stat 05/21/17 12:04 Hydrocolloid Dressing [DuoDerm CGF] 1 each TOP ASDIRECTED PRN 05/21/17 12:08 Consult to Occupational Therapy [OT Evaluation and Treatment] [CONS] Routine PT Evaluation and Treatment [CONS] Routine 05/21/17 21:00 QUEtiapine [SEROquel] 75 mg PO BEDTIME 05/22/17 05:11 MAGNESIUM [CHEM] AM 05/22/17 09:00 QUEtiapine [SEROquel] 25 mg PO DAILY - Plan Plan:: suspected recurrent uti with mental status changes; must consider sepsis. admit see orders code level I ; confirmed with patient's . will change from invanz ( ertapenem ) to meropenem for broader spectrum activity pending culture results. Mendoza Enciso MD 05/19/17 Replace K and Mg recheck in am continue meropenem awaiting urine/blood cultures echo done today. Mendoza Enciso MD 05/20/2017 I discussed with his concerning his mental functioning. He has significant brain volume loss on CT head. We discussed some type of post operative or post septic encephalopathy vs unmasking of underlying early dementia brought on by acute illness and unfamiliar surroundings. Will replace K and Mg continue meropenem echo reviewed showed diastolic dysfunction. may need detention placement. reviewed urine and blood cultures Mendoza Enciso MD 05/21/2017 I suspect that the myclonus is related to underlying brain disease/injury. It is likely that he has a dementia related to underlying Alzheimer's disease but he may have a component related to prior heavy alcohol intake as well as a fall with concussion last January. I suspect that he has unmasking and worsening of the dementia due to recent illnesses and other physical and psychological stressors. I have ordered a serum ammonia level I reviewed his recent head CT which showed cerebral atrophy. will check a B12 and folate level Will increase dose of seroquel to 75 mg at hs and 25 mg q am. His K is better. Repeat dose of Mg sulfate 4 g IV today. Will repeat UA and stop antibiotics today. duoderm for stage II pressure sores[facility] MD
[2017-05-21] MEDS: LORazepam 2 MG/ML MDV IVPUSH PRN (14:52)
[2017-05-21] MEDS ORDERED: QUEtiapine 25 MG Tab PO SCH (21:00)
[2017-05-21] MEDS ORDERED: Sodium Chloride 0.9% 10 ML Syringe FLUSH PRN (21:18)
[2017-05-21] MEDS ORDERED: Sodium Chloride 0.9% 2.5 ML Syringe FLUSH PRN (21:18)
[2017-05-21] MEDS: Hydrocolloid Dressing 4x4 Bandage TOP PRN (21:23)
[2017-05-21] MEDS: Temazepam 15 MG Cap PO PRN (22:37)
[2017-05-21] MEDS: traMADol 50 MG Tab PO PRN (22:37)
[2017-05-22] MEDS: Cyclobenzaprine 10 MG Tab PO SCH ×2 (05:30→15:00)
[2017-05-22] MEDS: Heparin Sodium 5,000 Units/ML Vial SUBCUT SCH ×2 (05:30→15:04)
[2017-05-22 06:29] LABS: CHLORIDE,CL 112 mmol/L (98-110); SODIUM,NA 144 mmol/L (136-146)
[2017-05-22] MEDS: LORazepam 2 MG/ML MDV IVPUSH PRN (06:41)
[2017-05-22] MEDS: Hydrocolloid Dressing 4x4 Bandage TOP PRN (06:49)
[2017-05-22] MEDS ORDERED: QUEtiapine 25 MG Tab PO SCH (09:00)
[2017-05-22] MEDS: Fluticasone/Salmeterol 250-50 MCG Inhalation Powder 14/Diskus INH SCH (09:05)
[2017-05-22] MEDS ORDERED: Albuterol/Ipratropium 3.0-0.5 MG/3 ML Neb Soln NEB SCH (09:30)
--- NOTE | 2017-05-22 09:35 | PCM.PN ---
- General Info Date of Service: 05/22/17 Subjective Update: nurses report hallucinations; agitation. - Patient Data Vitals - most recent: Last Vital Signs Temp 97.8 F 05/22/17 08:00 Pulse 118 H 05/22/17 08:00 Resp 28 H 05/22/17 08:00 BP 100/75 05/22/17 08:00 Pulse Ox 94 L 05/22/17 08:00 Weight - most recent: 86.8 kg I&O - last 24 hours: Intake & Output 05/21/17 05/22/17 05/22/17 22:59 06:59 14:59 Intake Total 853 550 Output Total 550 Balance 853 0 Lab Results last 24 hrs: Laboratory Results - last 24 hr 05/21/17 05/21/17 05/22/17 Range/Units 11:37 14:05 05:54 WBC (4.0-11.0) K/uL RBC (4.50-5.90) M/uL Hgb (13.0-17.0) g/dL Hct (38.0-50.0) % MCV (80.0-98.0) fL MCH (27.0-32.0) pg MCHC (31.0-37.0) g/dL RDW Std Deviation (28.0-62.0) fl RDW Coeff of Jeannie (11.0-15.0) % Plt Count (150-400) K/uL MPV (7.40-12.00) fL Neut % (Auto) (48.0-80.0) % Lymph % (Auto) (16.0-40.0) % [place] % (Auto) (0.0-15.0) % Eos % (Auto) (0.0-7.0) % Baso % (Auto) (0.0-1.5) % Neut # (Auto) (1.4-5.7) K/uL Lymph # (Auto) (0.6-2.4) K/uL [place] # (Auto) (0.0-0.8) K/uL Eos # (Auto) (0.0-0.7) K/uL Baso # (Auto) (0.0-0.1) K/uL Nucleated RBC % /100WBC Nucleated RBCs # K/uL Sodium (136-146) mmol/L Potassium (3.5-5.1) mmol/L Chloride (98-110) mmol/L Carbon Dioxide (21-31) mmol/L BUN (6.0-23.0) mg/dL Creatinine (0.6-1.5) mg/dL Est Cr Clr Drug Dosing mL/min Estimated GFR (MDRD) ml/min Glucose (60-110) mg/dL Calcium (8.8-10.8) mg/dL Magnesium 1.7 (1.5-2.3) mEq/L Ammonia 71 H (14-68) UG/DL Urine Color YELLOW Urine Appearance CLEAR Urine pH 5.5 (5.0-8.0) Ur Specific [place] 1.025 (1.001-1.035) Urine Protein NEGATIVE (NEGATIVE) mg/dL Urine Glucose (UA) NEGATIVE (NEGATIVE) mg/dL Urine Ketones NEGATIVE (NEGATIVE) mg/dL Urine Occult Blood TRACE-INTACT (NEGATIVE) Urine Nitrite POSITIVE H (NEGATIVE) Urine Bilirubin NEGATIVE (NEGATIVE) Urine Urobilinogen 0.2 (<2.0) EU/dL Ur Leukocyte Esterase TRACE (NEGATIVE) Urine RBC 0-2 (0-2/HPF) Urine WBC 1-2 (0-5/HPF) Ur Epithelial Cells RARE (NONE-FEW) Urine Bacteria RARE (NEGATIVE) Urine Yeast RARE 05/22/17 05/22/17 Range/Units 05:54 05:54 WBC 7.17 (4.0-11.0) K/uL RBC 3.58 L (4.50-5.90) M/uL Hgb 9.8 L (13.0-17.0) g/dL Hct 30.7 L (38.0-50.0) % MCV 85.8 (80.0-98.0) fL MCH 27.4 (27.0-32.0) pg MCHC 31.9 (31.0-37.0) g/dL RDW Std Deviation 64.8 H (28.0-62.0) fl RDW Coeff of Jeannie 20 H (11.0-15.0) % Plt Count 336 (150-400) K/uL MPV 9.80 (7.40-12.00) fL Neut % (Auto) 69.5 (48.0-80.0) % Lymph % (Auto) 16.7 (16.0-40.0) % [place] % (Auto) 11.7 (0.0-15.0) % Eos % (Auto) 1.0 (0.0-7.0) % Baso % (Auto) 1.1 (0.0-1.5) % Neut # (Auto) 5.0 (1.4-5.7) K/uL Lymph # (Auto) 1.2 (0.6-2.4) K/uL [place] # (Auto) 0.8 (0.0-0.8) K/uL Eos # (Auto) 0.1 (0.0-0.7) K/uL Baso # (Auto) 0.1 (0.0-0.1) K/uL Nucleated RBC % 0.0 /100WBC Nucleated RBCs # 0 K/uL Sodium 144 (136-146) mmol/L Potassium 4.6 (3.5-5.1) mmol/L Chloride 112 H (98-110) mmol/L Carbon Dioxide 23 (21-31) mmol/L BUN 4 L (6.0-23.0) mg/dL Creatinine 0.8 (0.6-1.5) mg/dL Est Cr Clr Drug Dosing 92.82 mL/min Estimated GFR (MDRD) > 60.0 ml/min Glucose 104 (60-110) mg/dL Calcium 8.1 L (8.8-10.8) mg/dL Magnesium (1.5-2.3) mEq/L Ammonia (14-68) UG/DL Urine Color Urine Appearance Urine pH (5.0-8.0) Ur Specific [place] (1.001-1.035) Urine Protein (NEGATIVE) mg/dL Urine Glucose (UA) (NEGATIVE) mg/dL Urine Ketones (NEGATIVE) mg/dL Urine Occult Blood (NEGATIVE) Urine Nitrite (NEGATIVE) Urine Bilirubin (NEGATIVE) Urine Urobilinogen (<2.0) EU/dL Ur Leukocyte Esterase (NEGATIVE) Urine RBC (0-2/HPF) Urine WBC (0-5/HPF) Ur Epithelial Cells (NONE-FEW) Urine Bacteria (NEGATIVE) Urine Yeast Med Orders - Current: Current Medications Acetaminophen (Tylenol) 650 mg PO Q4H PRN PRN Reason: Pain (Mild 1-3)/fever Albuterol/Ipratropium (Duoneb 3.0-0.5 Mg/3 Ml) 3 ml NEB Q4HRRT PRN PRN Reason: Wheezing Last Admin: 05/21/17 20:11 Dose: 3 ml Albuterol/Ipratropium (Duoneb 3.0-0.5 Mg/3 Ml) 3 ml NEB Q6H [facility] Aspirin (Halfprin) 81 mg PO DAILY [facility] Last Admin: 05/21/17 09:13 Dose: 81 mg Cyclobenzaprine HCl (Flexeril) 10 mg PO TID [facility] Last Admin: 05/22/17 05:30 Dose: 10 mg Docusate Sodium (Colace) 100 mg PO BID PRN PRN Reason: Constipation Last Admin: 05/18/17 21:37 Dose: 100 mg Heparin Sodium (Porcine) (Heparin Sodium) 5,000 units SUBCUT Q8H [facility] Last Admin: 05/22/17 05:30 Dose: 5,000 units Lorazepam (Ativan) 1 mg IVPUSH Q6H PRN PRN Reason: Agitation Last Admin: 05/22/17 06:41 Dose: 1 mg Ondansetron HCl (Zofran Odt) 4 mg PO Q4H PRN PRN Reason: nausea, able to take PO Quetiapine Fumarate (Seroquel) 75 mg PO BEDTIME [facility] Last Admin: 05/21/17 20:34 Dose: 75 mg Quetiapine Fumarate (Seroquel) 25 mg PO DAILY [facility] Fluticasone/Salmeterol (Advair Diskus 250-50) 0 puff INH BID [facility] Last Admin: 05/22/17 09:05 Dose: 1 puff Sodium Chloride (Saline Flush) 10 ml FLUSH ASDIRECTED PRN PRN Reason: Keep Vein Open Sodium Chloride (Saline Flush) 2.5 ml FLUSH ASDIRECTED PRN PRN Reason: Keep Vein Open Temazepam (Restoril) 15 mg PO BEDTIME PRN PRN Reason: Sleep Last Admin: 05/21/17 22:37 Dose: 15 mg Tramadol HCl (Ultram) 100 mg PO Q8HR PRN PRN Reason: Pain Last Admin: 05/21/17 22:37 Dose: 100 mg Wound Care/Dressing Products (Duoderm Cgf) 1 each TOP ASDIRECTED PRN PRN Reason: Wound Care Last Admin: 05/22/17 06:49 Dose: 1 each Discontinued Medications Piperacillin Sod/Tazobactam (Sod 4.5 gm/ Sodium Chloride) 100 mls @ 100 mls/hr IV ONETIME ONE Stop: 05/18/17 21:16 Last Admin: 05/18/17 20:36 Dose: 100 mls/hr Meropenem 1 gm/ Sodium (Chloride) 100 mls @ 200 mls/hr IV Q8H [facility] Last Admin: 05/18/17 22:33 Dose: Not Given Potassium Chloride/Sodium Chloride (Normal Saline With 20 Meq Kcl) 1,000 mls @ 50 mls/hr IV ASDIRECTED [facility] Last Admin: 05/21/17 08:22 Dose: 125 mls/hr Meropenem 1 gm/ Sodium (Chloride) 100 mls @ 200 mls/hr IV Q8H [facility] Meropenem 1 gm/ Sodium (Chloride) 100 mls @ 200 mls/hr IV Q8H [facility] Last Admin: 05/21/17 04:44 Dose: 200 mls/hr Magnesium Sulfate 4 gm/ Premix 100 mls @ 50 mls/hr IV ONETIME ONE Stop: 05/19/17 10:51 Last Admin: 05/19/17 10:02 Dose: 50 mls/hr Magnesium Sulfate 4 gm/ Premix 100 mls @ 50 mls/hr IV ONETIME ONE Stop: 05/20/17 14:17 Last Admin: 05/20/17 12:40 Dose: 50 mls/hr Magnesium Sulfate 4 gm/ Premix 100 mls @ 50 mls/hr IV ONETIME ONE Stop: 05/21/17 12:53 Last Admin: 05/21/17 12:05 Dose: 50 mls/hr Metronidazole (Metronidazole) 500 mg PO Q8H [facility] Last Admin: 05/21/17 04:43 Dose: 500 mg Potassium Chloride (Klor-Con M20) 40 meq PO ONETIME ONE Stop: 05/19/17 08:43 Last Admin: 05/19/17 10:02 Dose: 40 meq Potassium Chloride (Klor-Con M20) 40 meq PO ONETIME ONE Stop: 05/19/17 17:31 Last Admin: 05/19/17 17:35 Dose: 40 meq Potassium Chloride (Klor-Con M20) 40 meq PO ONETIME ONE Stop: 05/20/17 10:07 Last Admin: 05/20/17 11:05 Dose: 40 meq Potassium Chloride (Klor-Con M20) 40 meq PO ONETIME ONE Stop: 05/20/17 18:01 Last Admin: 05/20/17 18:43 Dose: 40 meq Quetiapine Fumarate (Seroquel) 25 mg PO BID [facility] Last Admin: 05/21/17 09:13 Dose: 25 mg Quetiapine Fumarate (Seroquel) 50 mg PO ONETIME ONE Stop: 05/20/17 22:24 Last Admin: 05/20/17 22:33 Dose: 50 mg - Exam General: other (very confused; picking movements with hands; myoclonic movements ) Lungs: Other (prolongation of expiration; some increased work of breathing) Abdomen: no tenderness - Problem List & Annotations (1) UTI (urinary tract infection) SNOMED Code(s): 65238934 Code(s): N39.0 - URINARY TRACT INFECTION, SITE NOT SPECIFIED Status: Acute Current Visit: Yes (2) Hypomagnesemia SNOMED Code(s): 737075223 Code(s): E83.42 - HYPOMAGNESEMIA Status: Acute Current Visit: Yes (3) Hypokalemia SNOMED Code(s): 49627242 Code(s): E87.6 - HYPOKALEMIA Status: Acute Current Visit: Yes (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, 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 Status: Acute Current Visit: Yes (5) Dementia SNOMED Code(s): 36371800 Code(s): F03.90 - UNSPECIFIED DEMENTIA WITHOUT BEHAVIORAL DISTURBANCE Status: Acute Current Visit: Yes (6) Pressure sore SNOMED Code(s): 334757694 Code(s): L89.90 - PRESSURE ULCER OF UNSPECIFIED SITE, UNSPECIFIED STAGE Status: Acute Current Visit: Yes (7) Delirium tremens SNOMED Code(s): 9978839, 47442365 Code(s): F10.231 - ALCOHOL DEPENDENCE WITH WITHDRAWAL DELIRIUM Status: Acute Current Visit: Yes - Problem List Review Problem List Initiated/Reviewed/Updated: Yes - My Orders Last 24 Hours: My Active Orders 05/21/17 12:04 Hydrocolloid Dressing [DuoDerm CGF] 1 each TOP ASDIRECTED PRN 05/21/17 12:08 Consult to Occupational Therapy [OT Evaluation and Treatment] [CONS] Routine PT Evaluation and Treatment [CONS] Routine 05/21/17 14:05 CULTURE URINE [RM] Routine 05/21/17 21:00 QUEtiapine [SEROquel] 75 mg PO BEDTIME 05/21/17 21:17 CIWAA Assessment [RC] Q4H 05/21/17 21:18 Sodium Chloride 0.9% [Saline Flush] 10 ml FLUSH ASDIRECTED PRN Sodium Chloride 0.9% [Saline Flush] 2.5 ml FLUSH ASDIRECTED PRN Convert IV to Saline Lock [OM.PC] Routine 05/22/17 09:00 QUEtiapine [SEROquel] 25 mg PO DAILY 05/22/17 09:30 Transfer Patient (Change bed) [ADT] Routine Albuterol/Ipratropium [DuoNeb 3.0-0.5 MG/3 ML] 3 ml NEB Q6H 05/22/17 09:31 RT Aerosol Therapy [RC] ASDIRECTED - Plan Plan:: suspected recurrent uti with mental status changes; must consider sepsis. admit see orders code level I ; confirmed with patient's . will change from invanz ( ertapenem ) to meropenem for broader spectrum activity pending culture results. Mendoza Enciso MD 05/19/17 Replace K and Mg recheck in am continue meropenem awaiting urine/blood cultures echo done today. Mendoza Enciso MD 05/20/2017 I discussed with his concerning his mental functioning. He has significant brain volume loss on CT head. We discussed some type of post operative or post septic encephalopathy vs unmasking of underlying early dementia brought on by acute illness and unfamiliar surroundings. Will replace K and Mg continue meropenem echo reviewed showed diastolic dysfunction. may need half-way placement. reviewed urine and blood cultures Mendoza Enciso MD 05/21/2017 I suspect that the myclonus is related to underlying brain disease/injury. It is likely that he has a dementia related to underlying Alzheimer's disease but he may have a component related to prior heavy alcohol intake as well as a fall with concussion last January. I suspect that he has unmasking and worsening of the dementia due to recent illnesses and other physical and psychological stressors. I have ordered a serum ammonia level I reviewed his recent head CT which showed cerebral atrophy. will check a B12 and folate level Will increase dose of seroquel to 75 mg at hs and 25 mg q am. His K is better. Repeat dose of Mg sulfate 4 g IV today. Will repeat UA and stop antibiotics today. duoderm for stage II pressure sores. seek placement at [facility]. Mendoza Enciso MD 05/22/2017: to ICU banana bag daily ciwa protocol Mendoza Enciso MD
[2017-05-22] MEDS ORDERED: MVI, Adult with Vitamin K 10 ML, Thiamine 100 MG, Folic Acid 1 MG in Sodium Chloride 0.... IV ONE ×4 (09:37)
[2017-05-22] MEDS ORDERED: LORazepam 2 MG/ML MDV IVPUSH PRN (09:39)
[2017-05-22] MEDS ORDERED: Pantoprazole 40 MG in Sodium Chloride 0.9% 10 ML IVPUSH SCH (09:45)
[2017-05-22] MEDS ORDERED: Sodium Chloride 0.45% 1,000 ML IV SCH (09:45)
--- NOTE | 2017-05-22 10:43 | CR ---
EXAMINATION: Portable chest radiograph. HISTORY: Wheezing. FINDINGS: The trachea is midline. The cardiomediastinal silhouette is stable. There is a left-sided PICC line with tip in good position. There are increased right perihilar right lower lobe opacities, grossly u nchanged from the study dated 05/18/2017. Right pleural scarring is again noted. Multiple screw and plate hardware fixate several right ribs. IMPRESSION: Right perihilar opacities again noted, grossly unchanged.
[2017-05-22] MEDS ORDERED: LORazepam 2 MG/ML MDV IVPUSH ONE (11:04)
[2017-05-22] MEDS: Aspirin 81 MG Tab.EC PO SCH (11:14)
--- NOTE | 2017-05-22 11:18 | PCM.SN ---
- Free Text/Narrative Note: His heart rate is 120's to 130's. Nurses report a six beat run of ventricular tachycardia. He has sonorous breathing and muttering unintelligible words. lungs: coarse rhonchi; labored respirations CXR: right sided infiltrates A: delirium tremens aspiration pneumonia P: zosymanuel munoz lopressor IV ciwa protocol. I talked to his N[place]. Mendoza Enciso MD
[2017-05-22] MEDS ORDERED: Metoprolol Tartrate 5 MG/5 ML SDV IVPUSH SCH (11:30)
[2017-05-22] MEDS ORDERED: Piperacillin/Tazobactam 3.375 GM in Sodium Chloride 0.9% 50 ML IV SCH (11:30)
[2017-05-22] MEDS ORDERED: Midazolam 1 MG/ML 2 ML SDV ONE (12:37)
[2017-05-22] MEDS ORDERED: fentaNYL 100 MCG/2 ML SDV ONE (12:39)
[2017-05-22] MEDS ORDERED: Propofol 200 MG/20 ML SDV IVPUSH ONE (12:53)
[2017-05-22] MEDS ORDERED: Sodium Chloride 0.9% 1,000 ML IV ONE (12:55)
--- NOTE | 2017-05-22 13:02 | PCM.DCSUM1 ---
Discharge Summary - Hospital Course Brief History: He was admitted for increased confusion and UTI. 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 Status: Acute Current Visit: Yes (5) Dementia SNOMED Code(s): 62891431 ICD Code: F03.90 - UNSPECIFIED DEMENTIA WITHOUT BEHAVIORAL DISTURBANCE Status: Acute Current Visit: Yes (6) Pressure sore SNOMED Code(s): 926354544 ICD Code: L89.90 - PRESSURE ULCER OF UNSPECIFIED SITE, UNSPECIFIED STAGE Status: Acute Current Visit: Yes (7) Delirium tremens SNOMED Code(s): 3741361, 12505255 ICD Code: F10.231 - ALCOHOL DEPENDENCE WITH WITHDRAWAL DELIRIUM Status: Acute Current Visit: Yes - Patient Summary/Data Consults: Consultations 05/21/17 12:08 Consult to Occupational Therapy [OT Evaluation and Treatment] [CONS] Routine PT Evaluation and Treatment [CONS] Routine Hospital Course: As his prior urine and blood cultures grew multidrug R Klebsiella pneumoniae, he was started on meropenem. He had been on ertapenum as an outpatient. Urine culture was negative except for yeast. Blood cultures were negative. He initially showed some stabilization but then had periods of increasing confusion. It was thought that he had some underlying dementia likely. His did report a prior history of heavy alcohol intake but stated that for the past several weeks he has had less than one beer/day. He developed some myclonus. Then on the day of transfer ( May 22, 2016) he was diagnosed with delirium tremens with marked confusion, tachycardia, and hallucinations. He was transferred to the intensive care unit. Meaghan and javon MALDONADO. At that time he was also noted to have sonorous breathing prolongation of expirations and scattered rhonchii. CXR showed right sided pulmonary infiltrates. He was diagnosed with aspiration pneumonia and zosyn was started. about 12 : 25 pm I came to see him in the ICU at the request of the nursing staff and noted that his respiratory rate was 40/minute. He underwent rapid sequence intubation. I spoke with DR Díaz who agreed to accept the patient at [facility]. Mendoza Enciso MD - Discharge Plan Home Medications: Home Meds Acetaminophen [Tylenol Extra Strength] 1,000 mg PO TID PRN 04/21/17 [History] Amiodarone HCl [Pacerone] 200 mg PO BID 04/21/17 [History] Fluticasone/Salmeterol [Advair Diskus 250-50] 1 each IH BID 04/21/17 [History] traMADol [Ultram] 100 mg PO Q8HR PRN 04/21/17 [History] Aspirin [Ecotrin] 81 mg PO DAILY 05/04/17 [History] Ertapenem [INVanz] 1 gm IV Q24H vial 05/08/17 [Rx] metroNIDAZOLE [Flagyl] 500 mg PO Q8H #42 tablet 05/08/17 [Rx] Cyclobenzaprine [Flexeril] 10 mg PO TID 05/18/17 [History] Referrals: Antonio Arias MD [Physician] - 05/23/17 10:45 am - Patient Data Vitals - Most Recent: Last Vital Signs Temp 97.8 F 05/22/17 08:00 Pulse 125 H 05/22/17 11:43 Resp 28 H 05/22/17 08:00 BP 113/80 05/22/17 11:43 Pulse Ox 94 L 05/22/17 08:00 Weight - Most Recent: 86.8 kg I&O - Last 24 hours: Intake & Output 05/21/17 05/22/17 05/22/17 22:59 06:59 14:59 Intake Total 853 550 Output Total 550 Balance 853 0 Lab Results - Last 24 hrs: Laboratory Results - last 24 hr 05/21/17 05/22/17 05/22/17 Range/Units 14:05 05:54 05:54 WBC 7.17 (4.0-11.0) K/uL RBC 3.58 L (4.50-5.90) M/uL Hgb 9.8 L (13.0-17.0) g/dL Hct 30.7 L (38.0-50.0) % MCV 85.8 (80.0-98.0) fL MCH 27.4 (27.0-32.0) pg MCHC 31.9 (31.0-37.0) g/dL RDW Std Deviation 64.8 H (28.0-62.0) fl RDW Coeff of Jeannie 20 H (11.0-15.0) % Plt Count 336 (150-400) K/uL MPV 9.80 (7.40-12.00) fL Neut % (Auto) 69.5 (48.0-80.0) % Lymph % (Auto) 16.7 (16.0-40.0) % [place] % (Auto) 11.7 (0.0-15.0) % Eos % (Auto) 1.0 (0.0-7.0) % Baso % (Auto) 1.1 (0.0-1.5) % Neut # (Auto) 5.0 (1.4-5.7) K/uL Lymph # (Auto) 1.2 (0.6-2.4) K/uL [place] # (Auto) 0.8 (0.0-0.8) K/uL Eos # (Auto) 0.1 (0.0-0.7) K/uL Baso # (Auto) 0.1 (0.0-0.1) K/uL Nucleated RBC % 0.0 /100WBC Nucleated RBCs # 0 K/uL ABG pH (7.35-7.45) ABG pCO2 (35-45) mmHG ABG pO2 (75-100) mmHG ABG HCO3 (22-26) mEq/L ABG Total CO2 ABG Base Excess (-2.0-2.0) Sodium (136-146) mmol/L Potassium (3.5-5.1) mmol/L Chloride (98-110) mmol/L Carbon Dioxide (21-31) mmol/L BUN (6.0-23.0) mg/dL Creatinine (0.6-1.5) mg/dL Est Cr Clr Drug Dosing mL/min Estimated GFR (MDRD) ml/min Glucose (60-110) mg/dL Calcium (8.8-10.8) mg/dL Magnesium 1.7 (1.5-2.3) mEq/L Vitamin B12 (200-1100) PG/ML Folate (7.2-15.4) ng/mL Urine Color YELLOW Urine Appearance CLEAR Urine pH 5.5 (5.0-8.0) Ur Specific [place] 1.025 (1.001-1.035) Urine Protein NEGATIVE (NEGATIVE) mg/dL Urine Glucose (UA) NEGATIVE (NEGATIVE) mg/dL Urine Ketones NEGATIVE (NEGATIVE) mg/dL Urine Occult Blood TRACE-INTACT (NEGATIVE) Urine Nitrite POSITIVE H (NEGATIVE) Urine Bilirubin NEGATIVE (NEGATIVE) Urine Urobilinogen 0.2 (<2.0) EU/dL Ur Leukocyte Esterase TRACE (NEGATIVE) Urine RBC 0-2 (0-2/HPF) Urine WBC 1-2 (0-5/HPF) Ur Epithelial Cells RARE (NONE-FEW) Urine Bacteria RARE (NEGATIVE) Urine Yeast RARE 05/22/17 05/22/17 05/22/17 Range/Units 05:54 05:54 12:35 WBC (4.0-11.0) K/uL RBC (4.50-5.90) M/uL Hgb (13.0-17.0) g/dL Hct (38.0-50.0) % MCV (80.0-98.0) fL MCH (27.0-32.0) pg MCHC (31.0-37.0) g/dL RDW Std Deviation (28.0-62.0) fl RDW Coeff of Jeannie (11.0-15.0) % Plt Count (150-400) K/uL MPV (7.40-12.00) fL Neut % (Auto) (48.0-80.0) % Lymph % (Auto) (16.0-40.0) % [place] % (Auto) (0.0-15.0) % Eos % (Auto) (0.0-7.0) % Baso % (Auto) (0.0-1.5) % Neut # (Auto) (1.4-5.7) K/uL Lymph # (Auto) (0.6-2.4) K/uL [place] # (Auto) (0.0-0.8) K/uL Eos # (Auto) (0.0-0.7) K/uL Baso # (Auto) (0.0-0.1) K/uL Nucleated RBC % /100WBC Nucleated RBCs # K/uL ABG pH 7.446 (7.35-7.45) ABG pCO2 34 L (35-45) mmHG ABG pO2 82 (75-100) mmHG ABG HCO3 24 (22-26) mEq/L ABG Total CO2 22.0 ABG Base Excess -0.3 (-2.0-2.0) Sodium 144 (136-146) mmol/L Potassium 4.6 (3.5-5.1) mmol/L Chloride 112 H (98-110) mmol/L Carbon Dioxide 23 (21-31) mmol/L BUN 4 L (6.0-23.0) mg/dL Creatinine 0.8 (0.6-1.5) mg/dL Est Cr Clr Drug Dosing 92.82 mL/min Estimated GFR (MDRD) > 60.0 ml/min Glucose 104 (60-110) mg/dL Calcium 8.1 L (8.8-10.8) mg/dL Magnesium (1.5-2.3) mEq/L Vitamin B12 921 (200-1100) PG/ML Folate 9.9 (7.2-15.4) ng/mL Urine Color Urine Appearance Urine pH (5.0-8.0) Ur Specific [place] (1.001-1.035) Urine Protein (NEGATIVE) mg/dL Urine Glucose (UA) (NEGATIVE) mg/dL Urine Ketones (NEGATIVE) mg/dL Urine Occult Blood (NEGATIVE) Urine Nitrite (NEGATIVE) Urine Bilirubin (NEGATIVE) Urine Urobilinogen (<2.0) EU/dL Ur Leukocyte Esterase (NEGATIVE) Urine RBC (0-2/HPF) Urine WBC (0-5/HPF) Ur Epithelial Cells (NONE-FEW) Urine Bacteria (NEGATIVE) Urine Yeast Med Orders - Current: Current Medications Acetaminophen (Tylenol) 650 mg PO Q4H PRN PRN Reason: Pain (Mild 1-3)/fever Albuterol/Ipratropium (Duoneb 3.0-0.5 Mg/3 Ml) 3 ml NEB Q4HRRT PRN PRN Reason: Wheezing Last Admin: 05/21/17 20:11 Dose: 3 ml Albuterol/Ipratropium (Duoneb 3.0-0.5 Mg/3 Ml) 3 ml NEB Q6H COUNT INCLUDES THE [facility] Last Admin: 05/22/17 10:01 Dose: 3 ml Aspirin (Halfprin) 81 mg PO DAILY COUNT INCLUDES THE [facility] Last Admin: 05/22/17 11:14 Dose: Not Given Chlordiazepoxide HCl (Librium) 10 mg PO TID COUNT INCLUDES THE [facility] Cyclobenzaprine HCl (Flexeril) 10 mg PO TID COUNT INCLUDES THE [facility] Last Admin: 05/22/17 05:30 Dose: 10 mg Docusate Sodium (Colace) 100 mg PO BID PRN PRN Reason: Constipation Last Admin: 05/18/17 21:37 Dose: 100 mg Heparin Sodium (Porcine) (Heparin Sodium) 5,000 units SUBCUT Q8H COUNT INCLUDES THE [facility] Last Admin: 05/22/17 05:30 Dose: 5,000 units Multivitamins/Minerals 10 ml/Thiamine HCl 100 mg/ Folic Acid 1 mg/ Sodium Chloride 1,011.2 mls @ 100 mls/hr IV DAILY ONE Stop: 05/22/17 19:43 Last Admin: 05/22/17 10:13 Dose: 100 mls/hr Pantoprazole Sodium 40 mg/ (Sodium Chloride) 10 mls @ 300 mls/hr IVPUSH Q12H COUNT INCLUDES THE [facility] Last Admin: 05/22/17 10:13 Dose: 300 mls/hr Sodium Chloride (Sodium Chloride 0.45%) 1,000 mls @ 100 mls/hr IV ASDIRECTED COUNT INCLUDES THE [facility] Piperacillin Sod/Tazobactam (Sod 3.375 gm/ Sodium Chloride) 50 mls @ 100 mls/ hr IV Q6H COUNT INCLUDES THE [facility] Last Admin: 05/22/17 12:45 Dose: 100 mls/hr Lorazepam (Ativan) 0 mg IVPUSH Q3H PRN; Protocol PRN Reason: Agitation Metoprolol Tartrate (Lopressor) 5 mg IVPUSH Q6H COUNT INCLUDES THE [facility] Stop: 05/22/17 23:31 Last Admin: 05/22/17 11:43 Dose: 5 mg Ondansetron HCl (Zofran Odt) 4 mg PO Q4H PRN PRN Reason: nausea, able to take PO Quetiapine Fumarate (Seroquel) 75 mg PO BEDTIME COUNT INCLUDES THE [facility] Last Admin: 05/21/17 20:34 Dose: 75 mg Quetiapine Fumarate (Seroquel) 25 mg PO DAILY COUNT INCLUDES THE [facility] Last Admin: 05/22/17 11:14 Dose: Not Given Fluticasone/Salmeterol (Advair Diskus 250-50) 0 puff INH BID COUNT INCLUDES THE [facility] Last Admin: 05/22/17 09:05 Dose: 1 puff Sodium Chloride (Saline Flush) 10 ml FLUSH ASDIRECTED PRN PRN Reason: Keep Vein Open Sodium Chloride (Saline Flush) 2.5 ml FLUSH ASDIRECTED PRN PRN Reason: Keep Vein Open Temazepam (Restoril) 15 mg PO BEDTIME PRN PRN Reason: Sleep Last Admin: 05/21/17 22:37 Dose: 15 mg Tramadol HCl (Ultram) 100 mg PO Q8HR PRN PRN Reason: Pain Last Admin: 05/21/17 22:37 Dose: 100 mg Wound Care/Dressing Products (Duoderm Cgf) 1 each TOP ASDIRECTED PRN PRN Reason: Wound Care Last Admin: 05/22/17 06:49 Dose: 1 each Discontinued Medications Fentanyl (Sublimaze) Confirm Administered Dose 100 mcg .ROUTE .STK-MED ONE Stop: 05/22/17 12:40 Piperacillin Sod/Tazobactam (Sod 4.5 gm/ Sodium Chloride) 100 mls @ 100 mls/hr IV ONETIME ONE Stop: 05/18/17 21:16 Last Admin: 05/18/17 20:36 Dose: 100 mls/hr Meropenem 1 gm/ Sodium (Chloride) 100 mls @ 200 mls/hr IV Q8H COUNT INCLUDES THE [facility] Last Admin: 05/18/17 22:33 Dose: Not Given Potassium Chloride/Sodium Chloride (Normal Saline With 20 Meq Kcl) 1,000 mls @ 50 mls/hr IV ASDIRECTED COUNT INCLUDES THE [facility] Last Admin: 05/21/17 08:22 Dose: 125 mls/hr Meropenem 1 gm/ Sodium (Chloride) 100 mls @ 200 mls/hr IV Q8H COUNT INCLUDES THE [facility] Meropenem 1 gm/ Sodium (Chloride) 100 mls @ 200 mls/hr IV Q8H COUNT INCLUDES THE [facility] Last Admin: 05/21/17 04:44 Dose: 200 mls/hr Magnesium Sulfate 4 gm/ Premix 100 mls @ 50 mls/hr IV ONETIME ONE Stop: 05/19/17 10:51 Last Admin: 05/19/17 10:02 Dose: 50 mls/hr Magnesium Sulfate 4 gm/ Premix 100 mls @ 50 mls/hr IV ONETIME ONE Stop: 05/20/17 14:17 Last Admin: 05/20/17 12:40 Dose: 50 mls/hr Magnesium Sulfate 4 gm/ Premix 100 mls @ 50 mls/hr IV ONETIME ONE Stop: 05/21/17 12:53 Last Admin: 05/21/17 12:05 Dose: 50 mls/hr Propofol (Diprivan 100 Ml) Confirm Administered Dose 100 mls @ as directed .ROUTE .STK-MED ONE Stop: 05/22/17 12:44 Lorazepam (Ativan) 1 mg IVPUSH Q6H PRN PRN Reason: Agitation Last Admin: 05/22/17 06:41 Dose: 1 mg Lorazepam (Ativan) 2 mg IVPUSH ONETIME ONE Stop: 05/22/17 11:05 Last Admin: 05/22/17 11:05 Dose: 2 mg Metronidazole (Metronidazole) 500 mg PO Q8H COUNT INCLUDES THE [facility] Last Admin: 05/21/17 04:43 Dose: 500 mg Midazolam HCl (Versed 1 Mg/Ml) Confirm Administered Dose 2 mg .ROUTE .STK-MED ONE Stop: 05/22/17 12:38 Potassium Chloride (Klor-Con M20) 40 meq PO ONETIME ONE Stop: 05/19/17 08:43 Last Admin: 05/19/17 10:02 Dose: 40 meq Potassium Chloride (Klor-Con M20) 40 meq PO ONETIME ONE Stop: 05/19/17 17:31 Last Admin: 05/19/17 17:35 Dose: 40 meq Potassium Chloride (Klor-Con M20) 40 meq PO ONETIME ONE Stop: 05/20/17 10:07 Last Admin: 05/20/17 11:05 Dose: 40 meq Potassium Chloride (Klor-Con M20) 40 meq PO ONETIME ONE Stop: 05/20/17 18:01 Last Admin: 05/20/17 18:43 Dose: 40 meq Quetiapine Fumarate (Seroquel) 25 mg PO BID COUNT INCLUDES THE [facility] Last Admin: 05/21/17 09:13 Dose: 25 mg Quetiapine Fumarate (Seroquel) 50 mg PO ONETIME ONE Stop: 05/20/17 22:24 Last Admin: 05/20/17 22:33 Dose: 50 mg *Q Meaningful Use (DIS) - VTE *Q VTE Criteria *Q: - Stroke *Q Stroke Criteria *Q: - AMI *Q AMI Criteria *Q:
[2017-05-22] MEDS ORDERED: Lactated Ringers 1,000 ML IV ONE (13:17)
[2017-05-22] MEDS ORDERED: Norepinephrine 4 MG in Dextrose 5% in Water 246 ML IV SCH ×2 (13:30)
--- NOTE | 2017-05-22 13:32 | CR ---
EXAMINATION: AP chest HISTORY: Intubation. FINDINGS: The trachea is midline. There is an endotracheal tube noted in good position centimeters above the c taylor. The cardiomediastinal silhouette is stable. Persistent mildly prominent right pulmonary, pred ominantly perihilar infiltrates noted. There is small right pleural effusion is not excluded. There is a left-sided PICC line with tip near the distal SVC. Right rib hardware again noted. IMPRESSION: Endotracheal tube noted with tip in good position.
--- NOTE | 2017-05-22 13:34 | PCM.SN ---
- Free Text/Narrative Note: Called to ICU for intubation by Dr Enciso. On arrival pt is only responsive to deep pain stimuli and is tachypneic. VS currently - HR 105, RR 40's, SpO2 96 % on NC at 4LPM, BP 102/61. RSI Performed with the following: Propofol 200mg IVP Rocuronium 10mg IVP Succinylcholine 120mg IVP DL with Eastman 2 yields grade I view, copious hard/dry secretions are noted. 8.0 ETT placed without difficulty. +EtCO2, + BBS. CXR pending. Vent Settings: SIMV - TV - 600, RR 10, P - 5, PS - 10, FiO2 50% Versed 2mg IVP and Fentanyl 50mcg IV was given for continued sedation while propofol drip was being prepared. VS post intubation - HR 98, RR 10 Controlled, SpO2 - 98% on FiO2 - 100%, BP 70- 80's systolic following intuabtion. Levophed drip was started at 8mcg/min, SBP immediately responded to SBP 110-120. Propofol infusion was started per nursing. Flight team at the bedside and was given report.
[2017-05-22] MEDS ORDERED: chlordiazePOXIDE 10 MG Cap PO SCH (14:00)
--- NOTE | 2017-05-22 14:01 | ECHO ---
EXAM DATE: 05/18/17 PATIENT'S AGE: 67 The echocardiogram report can be seen in this patient's EMR (Electronic Medical Record) in the Reports section. MARIA L
[2017-05-22 14:49] VITALS: BP 116/84
== END 2017-05-22 13:38 | DRG 689 ==
LOC: MW.ED 17:44 → MW.MS 20:17 → MW.ICU 05-22 09:35
PROVIDERS: ADMIT Family Medicine; ATTEND Family Medicine
PROC: 0BH17EZ Insertion of Endotracheal Airway into Trachea, Via Natural or Artificial Opening (ICD-10-PCS; principal; 2017-05-22)
DX: N30.01 Acute cystitis with hematuria (principal); E78.00 Pure hypercholesterolemia, unspecified; I10 Essential (primary) hypertension; J44.9 Chronic obstructive pulmonary disease, unspecified; N39.0 Urinary tract infection, site not specified; Z79.82 Long term (current) use of aspirin; J69.0 Pneumonitis due to inhalation of food and vomit; F10.231 Alcohol dependence with withdrawal delirium; G25.3 Myoclonus; R41.0 Disorientation, unspecified; R00.0 Tachycardia, unspecified; E83.42 Hypomagnesemia; E87.6 Hypokalemia; F03.90 Unspecified dementia, unspecified severity, without behavioral disturbance, psychotic disturbance, mood disturbance, and anxiety; L89.322 Pressure ulcer of left buttock, stage 2; L89.312 Pressure ulcer of right buttock, stage 2; Z79.899 Other long term (current) drug therapy; Z87.891 Personal history of nicotine dependence; W18.39XA Other fall on same level, initial encounter; Y93.89 Activity, other specified; Y92.019 Unspecified place in single-family (private) house as the place of occurrence of the external cause
CPT/HCPCS: 31500; 36415; 36600; 70450; 70450-26; 71010; 71010-26; 80048; 80053; 81001; 82140; 82607; 82746; 82803; 83605; 83735; 85025; 87040; 87086; 93306; 94002; 94640; 96365; 99285; 99285-25; A9270-GY; C9113; J1644; J2060; J2185; J2250; J2543; J2704; J3010; J3411; J3475; J3480; J7030; J7040; J7050; J7120

== ENCOUNTER 2017-06-18 18:37 | Inpatient (IN) | payer MEDICARE, OTHER ==
[2017-06-18] MEDS ORDERED: Sodium Chloride 0.9% 1,000 ML IV ONE (19:11)
--- NOTE | 2017-06-18 19:15 | EDM.PDOC ---
[id number] 4d WEAKNESS Time Seen by Provider: 06/18/17 19:05 Source of Information: Reports: Patient, Family History Limitations: Reports: No Limitations - History of Present Illness INITIAL COMMENTS - FREE TEXT/NARRATIVE: HISTORY AND PHYSICAL: History of present illness: [Patient is brought to the emergency room for evaluation of generalized weakness. He currently resides at [facility]. is present and reports that patient is not eating or drinking very much. Patient does not like to take Lasix or drink much for fluids as it makes him urinate often. He has refused his Lasix for several days. As of 2 days ago patient was walking 100- 200 feet with his walker without any difficulty. Yesterday and today he's become weaker and has required assistance with standing and walking. He has had a couple of episodes of his knees giving out while walking and being brought to the floor with assistance. He denies falls. He denies any pain, shortness of breath, difficulty breathing, and chest pain. He has otherwise been feeling well. Has not recently been taking prednisone or other steroids. He admits to some low back pain which he attributes to a strain. Requests medication for his pain. expresses wishes for patient to be: Level II without mechanical ventilation and chest compressions.] Review of systems: As per history of present illness and below otherwise all systems reviewed and negative. Past medical history: As per history of present illness and as reviewed below otherwise noncontributory. Surgical history: As per history of present illness and as reviewed below otherwise noncontributory. Social history: No reported history of drug or alcohol abuse. Family history: As per history of present illness and as reviewed below otherwise noncontributory. Physical exam: General: weight is down 38 lbs from his hospitalization on 05/22/17. Requires assistance of 2 in transferring from wheelchair to bed. HEENT: Atraumatic, normocephalic. Oral mucous membranes are pink and slightly dry. neck supple, nontender. Lungs: Clear to auscultation, breath sounds equal bilaterally. No wheezing crackles or rales. Heart: S1S2, regular rate and rhythm. negative for clicks, rubs, or murmur. Abdomen: Soft, nondistended, nontender. Negative for masses guarding or rebound. Genitourinary: Deferred. Rectal: Deferred. Extremities: Atraumatic, negative for cords or calf pain. No cyanosis or edema to feet or lower legs. Neurovascular unremarkable. Neuro: Awake, alert, oriented. Motor and sensory unremarkable throughout. Exam nonfocal. Diagnostics: CBC, CMP, TSH, UA w/ micro, CXR, EKG, CK, CKMB, troponin, blood cultures x 2, lactic acid] Therapeutics: [1 liter NS at 250mL/hour, LR at 150mL/hour, Toradol 30mg IV, calcium gluconate 1 gram IV, albuterol neb tx, ] Impression: [hyperkalemia hyponatremia Generalized weakness] Plan: [Peaked T waves on EKG. potassium 7.3. Sodium 129. BUN 48. Creatinine 2.4. WBC' s 14.15. Lactate 1.5. Alk Phos 226. Normal saline is discontinued and changed to lactated Ringer's at 150 miles per hour. One gram calcium gluconate and albuterol neb treatment given in ER. Blood cultures and UA are pending. Toradol 30mg IV for back pain. Patient's condition is discussed with Dr. Kapadia, hospitalist, who agrees to accept patient for admission.] Definitive disposition and diagnosis as appropriate pending reevaluation and review of above. Left Low Back Pain Score (Numeric/FACES): 8 - Related Data Allergies Allergy/AdvReac Type Severity Reaction Status Date / Time No Known Allergies Allergy Verified 06/18/17 18:58 Home Meds: Home Meds Amiodarone HCl [Pacerone] 100 mg PO BID 04/21/17 [History] Fluticasone/Salmeterol [Advair Diskus 250-50] 1 inh INH DAILY 04/21/17 [History] Aspirin [Ecotrin] 81 mg PO DAILY 05/04/17 [History] Acetaminophen [Tylenol Extra Strength] 1,000 mg PO BID 06/18/17 [History] Albuterol Sulfate 2.5 mg NEB Q6H 06/18/17 [History] Bisacodyl [Biscolax] 10 mg RC Q24H PRN 06/18/17 [History] Carvedilol 3.125 mg PO BIDMEALS 06/18/17 [History] Folic Acid 1 mg PO DAILY 06/18/17 [History] Furosemide 40 mg PO DAILY 06/18/17 [History] Lisinopril 5 mg PO DAILY 06/18/17 [History] Loperamide HCl [Imodium A-D] 2 mg PO QID PRN 06/18/17 [History] Magnesium Hydroxide [Milk of Magnesia] 30 ml PO Q24H PRN 06/18/17 [History] Magnesium Oxide 400 mg PO BIDMEALS 06/18/17 [History] Potassium Chloride 20 meq PO BID 06/18/17 [History] QUEtiapine [SEROquel] 25 mg PO BID 06/18/17 [History] Saccharomyces Boulardii [Digestive Probiotic] 250 mg PO BID 06/18/17 [History] Spironolactone [Aldactone] 25 mg PO DAILY 06/18/17 [History] Thiamine HCl 100 mg PO DAILY 06/18/17 [History] Meropenem [Merrem] 1 gm IV Q8H #33 sdv 06/22/17 [Rx] Past Medical History HEENT History: Reports: Cataract, Impaired Vision Cardiovascular History: Reports: High Cholesterol, Hypertension Other Cardiovascular History: hypokalemia; he had post operative atrial fibrillation. He was placed on amiodarone earlier this year with intent being to use it temporarily as he has since remained in sinus rhythm. Respiratory History: Reports: COPD, Pneumothorax, SOB Other Respiratory History: flail chest. hemothorax Gastrointestinal History: Reports: None Genitourinary History: Reports: Other (See Below) Other Genitourinary History: urosepsis Musculoskeletal History: Reports: None Neurological History: Reports: Head Trauma, Neuropathy, Peripheral Psychiatric History: Reports: Other (See Below) Other Psychiatric History: alcohol dependence with withdrawl delerium Endocrine/Metabolic History: Reports: Obesity/BMI 30+ Hematologic History: Reports: Blood Transfusion(s) Immunologic History: Reports: None Oncologic (Cancer) History: Reports: None Dermatologic History: Reports: None - Infectious Disease History Infectious Disease History: Reports: None - Past Surgical History Head Surgeries/Procedures: Reports: None HEENT Surgical History: Reports: None Cardiovascular Surgical History: Reports: None Respiratory Surgical History: Reports: None GI Surgical History: Reports: None Male Surgical History: Reports: None Endocrine Surgical History: Reports: None Neurological Surgical History: Reports: None Musculoskeletal Surgical History: Reports: Other (See Below) Other Musculoskeletal Surgeries/Procedures:: multiple rib fractures Dermatological Surgical History: Reports: None Social & Family History - Family History Family Medical History: Noncontributory - Tobacco Use Smoking Status *Q: Former Smoker Used Tobacco, but Quit: No Month Tobacco Last Used: 1969 Second Hand Smoke Exposure: No - Caffeine Use Caffeine Use: Reports: Coffee - Recreational Drug Use Recreational Drug Use: No ED ROS GENERAL - Review of Systems Review Of Systems: ROS reveals no pertinent complaints other than HPI. ED EXAM, GENERAL - Physical Exam Exam: See Below Course - Vital Signs Last Recorded V/S: Last Vital Signs Temp 98.4 F 06/22/17 08:00 Pulse 84 06/22/17 08:02 Resp 18 06/22/17 08:00 BP 126/78 06/22/17 08:02 Pulse Ox 94 L 06/22/17 08:00 - Orders/Labs/Meds Labs: Laboratory Tests 06/18/17 06/18/17 06/18/17 Range/Units 18:51 19:38 19:38 WBC 14.15 H (4.0-11.0) K/uL RBC 4.79 (4.50-5.90) M/uL Hgb 13.5 (13.0-17.0) g/dL Hct 40.7 (38.0-50.0) % MCV 85.0 (80.0-98.0) fL MCH 28.2 (27.0-32.0) pg MCHC 33.2 (31.0-37.0) g/dL RDW Std Deviation 54.1 (28.0-62.0) fl RDW Coeff of Jeannie 17 H (11.0-15.0) % Plt Count 455 H (150-400) K/uL MPV 9.70 (7.40-12.00) fL Add Manual Diff YES Neutrophils % (Manual) 80 (48.0-80.0) % Band Neutrophils % 2 % Lymphocytes % (Manual) 10 L (16.0-40.0) % Monocytes % (Manual) 7 (0.0-15.0) % Eosinophils % (Manual) 1 (0.0-7.0) % Nucleated RBC % 0.0 /100WBC Absolute Seg Neuts 11.3 Band Neutrophils # 0.3 Lymphocytes # (Manual) 1.4 Monocytes # (Manual) 1.0 Eosinophils # (Manual) 0.1 Nucleated RBCs # 0 K/uL Lactate (0.20-2.00) mmol/L Sodium 129 L (136-146) mmol/L Potassium 7.3 H* (3.5-5.1) mmol/L Chloride 100 (98-110) mmol/L Carbon Dioxide 20 L (21-31) mmol/L BUN 48 H (6.0-23.0) mg/dL Creatinine 2.4 H (0.6-1.5) mg/dL Est Cr Clr Drug Dosing 28.51 mL/min Estimated GFR (MDRD) 27.0 ml/min Glucose 100 (60-110) mg/dL POC Glucose 98 (60-110) mg/dL Calcium 9.1 (8.8-10.8) mg/dL Phosphorus (2.4-4.7) mg/dL Magnesium (1.5-2.3) mEq/L Total Bilirubin 0.4 (0.1-1.5) mg/dL AST 14 (5-40) IU/L ALT 14 (8-54) IU/L Alkaline Phosphatase 226 H (40-150) Creatine Kinase (9-236) IU/L CK-MB (CK-2) (0-6.6) ng/ml Troponin I (0.0-0.29) NG/ML Total Protein 7.3 (6.0-8.0) g/dL Albumin 2.7 L (3.4-4.8) g/dL Globulin 4.6 H (2.0-3.5) g/dL Albumin/Globulin Ratio 0.6 L (1.3-2.8) TSH 3rd Generation (0.47-5.0) uIU/mL 06/18/17 06/18/17 06/18/17 Range/Units 19:38 19:38 19:38 WBC (4.0-11.0) K/uL RBC (4.50-5.90) M/uL Hgb (13.0-17.0) g/dL Hct (38.0-50.0) % MCV (80.0-98.0) fL MCH (27.0-32.0) pg MCHC (31.0-37.0) g/dL RDW Std Deviation (28.0-62.0) fl RDW Coeff of Jeannie (11.0-15.0) % Plt Count (150-400) K/uL MPV (7.40-12.00) fL Add Manual Diff Neutrophils % (Manual) (48.0-80.0) % Band Neutrophils % % Lymphocytes % (Manual) (16.0-40.0) % Monocytes % (Manual) (0.0-15.0) % Eosinophils % (Manual) (0.0-7.0) % Nucleated RBC % /100WBC Absolute Seg Neuts Band Neutrophils # Lymphocytes # (Manual) Monocytes # (Manual) Eosinophils # (Manual) Nucleated RBCs # K/uL Lactate 1.5 (0.20-2.00) mmol/L Sodium (136-146) mmol/L Potassium (3.5-5.1) mmol/L Chloride (98-110) mmol/L Carbon Dioxide (21-31) mmol/L BUN (6.0-23.0) mg/dL Creatinine (0.6-1.5) mg/dL Est Cr Clr Drug Dosing mL/min Estimated GFR (MDRD) ml/min Glucose (60-110) mg/dL POC Glucose (60-110) mg/dL Calcium (8.8-10.8) mg/dL Phosphorus (2.4-4.7) mg/dL Magnesium (1.5-2.3) mEq/L Total Bilirubin (0.1-1.5) mg/dL AST (5-40) IU/L ALT (8-54) IU/L Alkaline Phosphatase (40-150) Creatine Kinase 13 (9-236) IU/L CK-MB (CK-2) 1.3 (0-6.6) ng/ml Troponin I < 0.10 (0.0-0.29) NG/ML Total Protein (6.0-8.0) g/dL Albumin (3.4-4.8) g/dL Globulin (2.0-3.5) g/dL Albumin/Globulin Ratio (1.3-2.8) TSH 3rd Generation 3.48 (0.47-5.0) uIU/mL 06/18/17 Range/Units 19:38 WBC (4.0-11.0) K/uL RBC (4.50-5.90) M/uL Hgb (13.0-17.0) g/dL Hct (38.0-50.0) % MCV (80.0-98.0) fL MCH (27.0-32.0) pg MCHC (31.0-37.0) g/dL RDW Std Deviation (28.0-62.0) fl RDW Coeff of Jeannie (11.0-15.0) % Plt Count (150-400) K/uL MPV (7.40-12.00) fL Add Manual Diff Neutrophils % (Manual) (48.0-80.0) % Band Neutrophils % % Lymphocytes % (Manual) (16.0-40.0) % Monocytes % (Manual) (0.0-15.0) % Eosinophils % (Manual) (0.0-7.0) % Nucleated RBC % /100WBC Absolute Seg Neuts Band Neutrophils # Lymphocytes # (Manual) Monocytes # (Manual) Eosinophils # (Manual) Nucleated RBCs # K/uL Lactate (0.20-2.00) mmol/L Sodium (136-146) mmol/L Potassium (3.5-5.1) mmol/L Chloride (98-110) mmol/L Carbon Dioxide (21-31) mmol/L BUN (6.0-23.0) mg/dL Creatinine (0.6-1.5) mg/dL Est Cr Clr Drug Dosing mL/min Estimated GFR (MDRD) ml/min Glucose (60-110) mg/dL POC Glucose (60-110) mg/dL Calcium (8.8-10.8) mg/dL Phosphorus 4.8 H (2.4-4.7) mg/dL Magnesium 1.6 (1.5-2.3) mEq/L Total Bilirubin (0.1-1.5) mg/dL AST (5-40) IU/L ALT (8-54) IU/L Alkaline Phosphatase (40-150) Creatine Kinase (9-236) IU/L CK-MB (CK-2) (0-6.6) ng/ml Troponin I (0.0-0.29) NG/ML Total Protein (6.0-8.0) g/dL Albumin (3.4-4.8) g/dL Globulin (2.0-3.5) g/dL Albumin/Globulin Ratio (1.3-2.8) TSH 3rd Generation (0.47-5.0) uIU/mL Meds: Medications Discontinued Medications Generic Name Dose Route Start Last Admin Trade Name Ness PRN Reason Stop Dose Admin Acetaminophen 650 mg 06/18/17 21:53 Tylenol PO Q4H PRN Pain (Mild 1-3)/fever Albuterol 2.5 mg 06/18/17 20:44 06/18/17 20:54 Proventil Neb Soln NEB 06/18/17 20:45 2.5 mg ONETIME ONE Administration Albuterol 5 mg 06/18/17 21:57 Proventil Neb Soln NEB Q12HR PRN Shortness of Breath Albuterol 5 mg 06/19/17 01:30 06/19/17 02:15 Proventil Neb Soln NEB Not Given Q6HRRT JOSE Albuterol 2.5 mg 06/19/17 02:00 06/22/17 14:13 Proventil Neb Soln NEB Not Given Q6HRRT JOSE Albuterol 2.5 mg 06/19/17 01:57 Proventil Neb Soln NEB Q12HR PRN Shortness of Breath Amiodarone HCl 100 mg 06/19/17 09:00 06/22/17 08:02 Cordarone PO 100 mg BID JOSE Administration Calcium Gluconate 1 gm 06/18/17 20:37 06/18/17 20:48 Calcium Gluconate IVPUSH 06/18/17 20:38 1 gm ONETIME ONE Administration Carvedilol 3.125 mg 06/19/17 08:00 06/22/17 08:02 Coreg PO 3.125 mg BIDMEALS JOSE Administration Docusate Sodium 100 mg 06/18/17 21:53 Colace PO BID PRN Constipation Folic Acid 1 mg 06/19/17 09:00 06/22/17 08:02 Folic Acid PO 1 mg DAILY JOSE Administration Heparin Sodium (Porcine) 5,000 units 06/18/17 22:00 06/22/17 14:11 Heparin Sodium SUBCUT Not Given Q8H JOSE Sodium Chloride 1,000 mls @ 250 mls/hr 06/18/17 19:11 06/18/17 19:25 Normal Saline IV 06/18/17 23:10 250 mls/hr STAT ONE Administration Lactated Ringer's 1,000 mls @ 150 mls/hr 06/18/17 20:45 Ringers, Lactated IV ASDIRECTED JOSE Sodium Chloride 1,000 mls @ 100 mls/hr 06/18/17 22:00 06/19/17 05:48 Normal Saline IV 75 mls/hr ASDIRECTED JOSE Administration Ceftriaxone Sodium/Dextrose 1 50 mls @ 100 mls/hr 06/19/17 08:30 06/19/17 08: 47 gm/ Premix IV 100 mls/hr Q24H JOSE Administration Meropenem 1 gm/ Sodium 50 mls @ 100 mls/hr 06/19/17 11:00 06/19/17 11:03 Chloride IV 100 mls/hr Q12H JOSE Administration Sodium Chloride 1,000 mls @ 100 mls/hr 06/19/17 13:45 06/19/17 13:47 Normal Saline IV 100 mls/hr ASDIRECTED JOSE Administration Sodium Chloride 1,000 mls @ 125 mls/hr 06/19/17 15:15 06/22/17 01:54 Normal Saline IV 125 mls/hr ASDIRECTED JOSE Administration Norepinephrine Bitartrate 4 mg 250 mls @ 7.5 mls/hr 06/19/17 16:15 06/21/17 00:00 / Premix IV 0 mcg/min TITRATE JOSE 0 mls/hr Protocol Titration 2 MCG/MIN Vancomycin HCl 1,500 mg/ 500 mls @ 166.667 mls/hr 06/19/17 17:00 06/19/17 17: 50 Sodium Chloride IV 06/19/17 19:59 166.667 mls/hr ONETIME ONE Administration Vancomycin HCl 1 gm/ Sodium 250 mls @ 250 mls/hr 06/20/17 18:00 06/21/17 05: 21 Chloride IV 250 mls/hr Q12H JOSE Administration Norepinephrine Bitartrate Confirm 06/19/17 16:38 06/19/17 17:46 Norepinephr-0.9% Nacl 4 Mg/250 Administered 06/19/17 16:39 Not Given Dose 250 mls @ as directed IV .STK-MED ONE Meropenem 1 gm/ Sodium 100 mls @ 200 mls/hr 06/19/17 23:00 Chloride IV Q12H JOSE Meropenem 1 gm/ Sodium 50 mls @ 100 mls/hr 06/19/17 23:00 06/19/17 23:16 Chloride IV 100 mls/hr Q12H JOSE Administration Magnesium Sulfate 2 gm/ Premix 50 mls @ 50 mls/hr 06/20/17 06:00 06/20/17 06: 27 IV 06/20/17 06:59 50 mls/hr ONETIME ONE Administration Meropenem 1 gm/ Sodium 50 mls @ 100 mls/hr 06/20/17 11:00 06/20/17 23:00 Chloride IV 100 mls/hr Q12H JOSE Administration Meropenem 1 gm/ Sodium 50 mls @ 100 mls/hr 06/21/17 10:00 06/22/17 10:21 Chloride IV 100 mls/hr Q8H JOSE Administration Magnesium Sulfate 2 gm/ Premix 50 mls @ 50 mls/hr 06/21/17 10:32 06/21/17 10: 59 IV 06/21/17 11:31 50 mls/hr ONETIME ONE Administration Magnesium Sulfate 4 gm/ Premix 100 mls @ 50 mls/hr 06/22/17 06:40 06/22/17 07 :37 IV 06/22/17 08:39 50 mls/hr ONETIME ONE Administration Ketorolac Tromethamine 30 mg 06/18/17 19:19 06/18/17 19:32 Toradol IVPUSH 06/18/17 19:20 30 mg ONETIME ONE Administration Lisinopril 5 mg 06/19/17 09:00 06/19/17 08:21 Prinivil PO 5 mg DAILY JOSE Administration Midazolam HCl Confirm 06/19/17 17:09 06/19/17 17:47 Versed 1 Mg/Ml Administered 06/19/17 17:10 Not Given Dose 2 mg .ROUTE .STK-MED ONE Morphine Sulfate 2 mg 06/18/17 21:53 Morphine IVPUSH 06/19/17 21:56 Q2H PRN Pain (severe 7-10) Ondansetron HCl 4 mg 06/18/17 21:53 Zofran Odt PO Q6H PRN nausea, able to take PO Oxycodone HCl 5 mg 06/18/17 21:53 06/19/17 08:58 Oxycodone PO 5 mg Q4H PRN Administration Pain (moderate 4-6) Quetiapine Fumarate 25 mg 06/19/17 09:00 06/22/17 08:02 Seroquel PO 25 mg BID JOSE Administration Fluticasone/Salmeterol 1 puff 06/19/17 09:00 06/22/17 11:17 Advair Diskus 250-50 INH 1 inhalation DAILY JOSE Administration Sodium Polystyrene Sulfonate 15 gm 06/18/17 22:30 06/20/17 06:20 Kayexalate PO Not Given Q8H JOSE Temazepam 15 mg 06/18/17 21:53 Restoril PO BEDTIME PRN Sleep Departure - Departure Time of Disposition: 21:10 Disposition: Admitted As Inpatient 64 Condition: Fair Clinical Impression: Hyperkalemia, Hyponatremia, Generalized weakness - Discharge Information
[2017-06-18] MEDS ORDERED: Ketorolac 30 MG/ML SDV IVPUSH ONE (19:19)
[2017-06-18] MEDS ORDERED: Calcium Gluconate 10% 1 GM/10 ML SDV IVPUSH ONE (20:37)
[2017-06-18] MEDS ORDERED: Albuterol 0.083% 2.5 MG/3 ML Neb Soln NEB ONE (20:44)
[2017-06-18] MEDS ORDERED: Lactated Ringers 1,000 ML IV SCH (20:45)
[2017-06-18] MEDS ORDERED: Morphine 2 MG/ML Syringe IVPUSH PRN (21:53)
[2017-06-18] MEDS ORDERED: Temazepam 15 MG Cap PO PRN (21:53)
[2017-06-18] MEDS ORDERED: Ondansetron 4 MG Tab.DIS PO PRN (21:53)
[2017-06-18] MEDS ORDERED: oxyCODONE 5 MG Tab PO PRN (21:53)
[2017-06-18] MEDS ORDERED: Docusate Sodium 100 MG Cap PO PRN (21:53)
[2017-06-18] MEDS ORDERED: Acetaminophen 325 MG Tab PO PRN (21:53)
[2017-06-18] MEDS ORDERED: Albuterol 0.5% 5 MG/ML Neb Soln 20 ML Bottle NEB PRN (21:57)
--- NOTE | 2017-06-18 22:08 | PCM.HP ---
H&P History of Present Illness - General Date of Service: 06/18/17 Source of Information: Patient, Family History Limitations: Reports: No Limitations - History of Present Illness Initial Comments - Free Text/Narative: The patient is a 67-year-old gentleman who presented to the emergency department from [facility] secondary to weakness and possible fall. The patient has been there secondary to previous injuries involving multiple rib fractures with plating, C. difficile colitis, multiple episodes of pneumonia and overall physical debility. The patient said that he does not like to take Lasix and the patient says that he has also been taking his potassium. The patient says that he has had some problems with standing and walking. He has been able to contract. Be it to his history and physical. The patient has been in his usual state of health up at the present time. Was noted while the patient was in the emergency department that his potassium was at a critical level of 7.3 mmol per liter. Patient was stabilized in the emergency department with calcium gluconate and his Lasix and potassium were stopped. The patient has no other complaints other than the weakness and some muscle pain. He's been in his usual state of health up until the present time. Onset of Symptoms: Reports: Unknown/Unsure Duration of Symptoms: Reports: Week(s): Location: Reports: Generalized Improves with: Reports: None Worsens with: Reports: None Associated Symptoms: Reports: Loss of Appetite, Weakness Left Low Back Pain Score (Numeric/FACES): 8 - Related Data Allergies/Adverse Reactions: Allergies Allergy/AdvReac Type Severity Reaction Status Date / Time No Known Allergies Allergy Verified 06/18/17 18:58 Home Medications: Home Meds Amiodarone HCl [Pacerone] 100 mg PO BID 04/21/17 [History] Fluticasone/Salmeterol [Advair Diskus 250-50] 1 inh INH DAILY 04/21/17 [History] Aspirin [Ecotrin] 81 mg PO DAILY 05/04/17 [History] Acetaminophen [Tylenol Extra Strength] 1,000 mg PO BID 06/18/17 [History] Albuterol Sulfate 2.5 mg NEB Q2H PRN 06/18/17 [History] Albuterol Sulfate 2.5 mg NEB Q6H 06/18/17 [History] Bisacodyl [Biscolax] 10 mg RC Q24H PRN 06/18/17 [History] Carvedilol 3.125 mg PO BIDMEALS 06/18/17 [History] Folic Acid 1 mg PO DAILY 06/18/17 [History] Furosemide 40 mg PO DAILY 06/18/17 [History] Lisinopril 5 mg PO DAILY 06/18/17 [History] Loperamide HCl [Imodium A-D] 2 mg PO QID PRN 06/18/17 [History] Magnesium Hydroxide [Milk of Magnesia] 30 ml PO Q24H PRN 06/18/17 [History] Magnesium Oxide 400 mg PO BIDMEALS 06/18/17 [History] Potassium Chloride 20 meq PO BID 06/18/17 [History] QUEtiapine [SEROquel] 25 mg PO BID 06/18/17 [History] Saccharomyces Boulardii [Digestive Probiotic] 250 mg PO BID 06/18/17 [History] Spironolactone [Aldactone] 25 mg PO DAILY 06/18/17 [History] Thiamine HCl 100 mg PO DAILY 06/18/17 [History] Past Medical History HEENT History: Reports: Cataract, Impaired Vision Cardiovascular History: Reports: High Cholesterol, Hypertension Other Cardiovascular History: hypokalemia; he had post operative atrial fibrillation. He was placed on amiodarone earlier this year with intent being to use it temporarily as he has since remained in sinus rhythm. Respiratory History: Reports: COPD, Pneumothorax, SOB Other Respiratory History: flail chest. hemothorax Gastrointestinal History: Reports: None Genitourinary History: Reports: Other (See Below) Other Genitourinary History: urosepsis Musculoskeletal History: Reports: None Neurological History: Reports: Head Trauma, Neuropathy, Peripheral Psychiatric History: Reports: Other (See Below) Other Psychiatric History: alcohol dependence with withdrawl delerium Endocrine/Metabolic History: Reports: Obesity/BMI 30+ Hematologic History: Reports: Blood Transfusion(s) Immunologic History: Reports: None Oncologic (Cancer) History: Reports: None Dermatologic History: Reports: None - Infectious Disease History Infectious Disease History: Reports: None - Past Surgical History Head Surgeries/Procedures: Reports: None HEENT Surgical History: Reports: None Cardiovascular Surgical History: Reports: None Respiratory Surgical History: Reports: None GI Surgical History: Reports: None Male Surgical History: Reports: None Endocrine Surgical History: Reports: None Neurological Surgical History: Reports: None Musculoskeletal Surgical History: Reports: Other (See Below) Other Musculoskeletal Surgeries/Procedures:: multiple rib fractures Dermatological Surgical History: Reports: None Social & Family History - Family History Family Medical History: Noncontributory - Tobacco Use Smoking Status *Q: Former Smoker Used Tobacco, but Quit: No Month Tobacco Last Used: 1969 Second Hand Smoke Exposure: No - Caffeine Use Caffeine Use: Reports: Coffee - Recreational Drug Use Recreational Drug Use: No H&P Review of Systems - Review of Systems: Review Of Systems: See Below General: Reports: Malaise, Weakness, Fatigue HEENT: Reports: No Symptoms Pulmonary: Reports: No Symptoms Cardiovascular: Reports: No Symptoms Gastrointestinal: Reports: No Symptoms Genitourinary: Reports: No Symptoms Musculoskeletal: Reports: No Symptoms Skin: Reports: No Symptoms Psychiatric: Reports: No Symptoms Neurological: Reports: No Symptoms Hematologic/Lymphatic: Reports: No Symptoms Immunologic: Reports: No Symptoms Exam - Exam Exam: See Below - Vital Signs Vital Signs: Last Vital Signs Temp 36.1 C 06/18/17 21:12 Pulse 68 06/18/17 21:12 Resp 20 06/18/17 21:12 BP 124/78 06/18/17 21:12 Pulse Ox 98 06/18/17 21:12 Weight: 69.4 kg - Exam Quality Assessment: No: Supplemental Oxygen General: Alert, Oriented, Cooperative HEENT: Conjunctiva Clear, EACs Clear, EOMI. No: Mucosa Moist & [place] Neck: Supple, Trachea Midline Lungs: Clear to Auscultation, Normal Respiratory Effort Cardiovascular: Regular Rate, Regular Rhythm GI/Abdominal Exam: Normal Bowel Sounds, Soft, Non-Tender Back Exam: Decreased Range of Motion Extremities: Normal Inspection, No Pedal Edema Skin: Warm, Dry, Intact Neurological: Cranial Nerves Intact Neuro Extensive - Mental Status: Alert, Oriented x3 Psychiatric: Alert, Normal Affect - Patient Data Result Diagrams: 06/18/17 19:38 06/19/17 10:48 *Q Meaningful Use (ADM) - VTE *Q VTE Criteria *Q: VTE Mechanical Contraindications *Q: At Risk for Falls - VTE Risk Assess *Q Each Risk Factor Represents 1 Point: History of Prior Major Surgery Total Score 1 Point Risk Factors: 1 Each Risk Factor Represents 2 Points: Age 60 - 74 Years Total Score 2 Point Risk Factors: 2 Each Risk Factor Represents 3 Points: None Total Score 3 Point Risk Factors: 0 - Stroke *Q Stroke Criteria *Q: - AMI *Q AMI Criteria *Q: - Problem List (1) Hyperkalemia SNOMED Code(s): 32188480 ICD Code: E87.5 - HYPERKALEMIA Status: Acute Priority: High Current Visit: Yes Problem Details: Kayexalate ordered, calcium gluconate given in the ER (2) Dehydration SNOMED Code(s): 59797600 ICD Code: E86.0 - DEHYDRATION Status: Acute Current Visit: Yes Problem Details: IV normal saline 75 mL per hour (3) Generalized weakness SNOMED Code(s): 69671209 ICD Code: R53.1 - WEAKNESS Status: Acute Priority: High Current Visit: Yes (4) Acute kidney injury SNOMED Code(s): 73929272 ICD Code: N17.9 - ACUTE KIDNEY FAILURE, UNSPECIFIED Status: Acute Priority: High Current Visit: Yes Problem Details: Gentle fluid resuscitation Problem List Initiated/Reviewed/Updated: Yes Orders Last 24hrs: Active Orders 24 hr Category Date Time Status Patient Status [ADT] Routine ADT 06/18/17 21:53 Active Cardiac Monitoring [RC] CONTINUOUS Care 06/18/17 21:55 Active Oxygen Therapy [RC] PRN Care 06/18/17 21:53 Active Up With Assistance [RC] ASDIRECTED Care 06/18/17 21:53 Active VTE/DVT Education [RC] PER UNIT ROUTINE Care 06/18/17 21:53 Active Vital Signs [RC] Q4H Care 06/18/17 21:53 Active 2 Gram Sodium Diet [DIET] Diet 06/18/17 Breakfast Active BASIC METABOLIC PANEL,BMP [CHEM] Routine Lab 06/19/17 02:00 Ordered MAGNESIUM [CHEM] Urgent Lab 06/18/17 22:01 Ordered PHOSPHORUS [CHEM] Urgent Lab 06/18/17 22:01 Ordered Acetaminophen [Tylenol] Med 06/18/17 21:53 Active 650 mg PO Q4H PRN Albuterol [Proventil Neb Soln] Med 06/18/17 21:57 Ordered DOSE mg NEB Q12HR PRN Albuterol [Proventil Neb Soln] Med 06/19/17 00:00 Ordered DOSE mg NEB Q6HR Amiodarone [Cordarone] Med 06/19/17 09:00 Ordered 100 mg PO BID Carvedilol [Coreg] Med 06/19/17 08:00 Ordered DOSE mg PO BIDMEALS Docusate Sodium [Colace] Med 06/18/17 21:53 Ordered 100 mg PO BID PRN Fluticasone/Salmeterol [Advair Diskus 250-50] Med 06/19/17 09:00 Ordered DOSE puff INH DAILY Folic Acid Med 06/19/17 09:00 Ordered DOSE mg PO DAILY Heparin Sodium Med 06/18/17 22:00 Ordered 5,000 units SUBCUT Q8H Lisinopril [Prinivil] Med 06/19/17 09:00 Ordered DOSE mg PO DAILY Morphine Med 06/18/17 21:53 Ordered 2 mg IVPUSH Q2H PRN Ondansetron [Zofran ODT] Med 06/18/17 21:53 Ordered 4 mg PO Q6H PRN QUEtiapine [SEROquel] Med 06/19/17 09:00 Ordered DOSE mg PO BID Sodium Chloride 0.9% [Normal Saline] 1,000 ml Med 06/18/17 22:00 Ordered IV ASDIRECTED Sodium Polystyrene Sulfonate [Kayexalate] Med 06/18/17 22:15 Ordered 15 gm PO Q8H Temazepam [Restoril] Med 06/18/17 21:53 Ordered 15 mg PO BEDTIME PRN oxyCODONE Med 06/18/17 21:53 Ordered 5 mg PO Q4H PRN Resuscitation Status Routine Resus Stat 06/18/17 21:53 Ordered Medication Orders Acetaminophen (Tylenol) 650 mg PO Q4H PRN PRN Reason: Pain (Mild 1-3)/fever Albuterol (Proventil Neb Soln) mg NEB Q12HR PRN PRN Reason: Shortness of Breath Albuterol (Proventil Neb Soln) mg NEB Q6HR JOSE Amiodarone HCl (Cordarone) 100 mg PO BID JOSE Carvedilol (Coreg) mg PO BIDMEALS JOSE Docusate Sodium (Colace) 100 mg PO BID PRN PRN Reason: Constipation Folic Acid (Folic Acid) mg PO DAILY JOSE Heparin Sodium (Porcine) (Heparin Sodium) 5,000 units SUBCUT Q8H JOSE Lactated Ringer's (Ringers, Lactated) 1,000 mls @ 150 mls/hr IV ASDIRECTED JOSE Sodium Chloride (Normal Saline) 1,000 mls @ 75 mls/hr IV ASDIRECTED JOSE Lisinopril (Prinivil) mg PO DAILY JOSE Morphine Sulfate (Morphine) 2 mg IVPUSH Q2H PRN PRN Reason: Pain (severe 7-10) Stop: 06/19/17 21:56 Ondansetron HCl (Zofran Odt) 4 mg PO Q6H PRN PRN Reason: nausea, able to take PO Oxycodone HCl (Oxycodone) 5 mg PO Q4H PRN PRN Reason: Pain (moderate 4-6) Quetiapine Fumarate (Seroquel) mg PO BID JOSE Fluticasone/Salmeterol (Advair Diskus 250-50) puff INH DAILY JOSE Sodium Polystyrene Sulfonate (Kayexalate) 15 gm PO Q8H JOSE Temazepam (Restoril) 15 mg PO BEDTIME PRN PRN Reason: Sleep Assessment/Plan Comment:: The patient has been admitted as an inpatient secondary to his critical level potassium. I believe that the patient's source for his hyperkalemia is secondary to exogenous sources as he has been taking potassium supplements without Lasix. The patient will be gently fluid resuscitated because of his chronic kidney disease at 75 mL per hour. Also started the patient on Kayexalate at 15 g 4 times a day. I've ordered a repeat basic metabolic panel every 6 hours and I will also place patient on telemetry. The patient does show renal insufficiency and it's uncertain at this time if it is chronic or acute. I suspect it likely is acute and will gently fluid resuscitate and monitor his BUN/creatinine. The patient also be kept on regular diet as tolerated. He will also be kept on his medications as prescribed. I'll see the patient in follow- up in his overall treatment plan will be adjusted as conditions and information indicates.
[2017-06-18] MEDS: Heparin Sodium 5,000 Units/ML Vial SUBCUT SCH (22:16)
[2017-06-18] MEDS: Sodium Polystyrene Sulfonate 15 GM/60 ML Susp 60 ML Bot PO SCH (22:16)
[2017-06-18] MEDS: Sodium Chloride 0.9% 1,000 ML IV SCH (22:17)
[2017-06-19] MEDS ORDERED: Albuterol 0.5% 5 MG/ML Neb Soln 20 ML Bottle NEB SCH (01:30)
[2017-06-19] MEDS ORDERED: Albuterol 0.083% 2.5 MG/3 ML Neb Soln NEB PRN (01:57)
[2017-06-19] MEDS: Albuterol 0.083% 2.5 MG/3 ML Neb Soln NEB SCH ×4 (02:21→18:35)
[2017-06-19] MEDS: Heparin Sodium 5,000 Units/ML Vial SUBCUT SCH ×3 (05:44→21:24)
[2017-06-19] MEDS: Sodium Polystyrene Sulfonate 15 GM/60 ML Susp 60 ML Bot PO SCH ×3 (05:44→23:01)
[2017-06-19] MEDS: Sodium Chloride 0.9% 1,000 ML IV SCH ×3 (05:48→21:50)
[2017-06-19] MEDS: Fluticasone/Salmeterol 250-50 MCG Inhalation Powder 14/Diskus INH SCH (08:03)
[2017-06-19] MEDS: Carvedilol 3.125 MG Tab PO SCH ×2 (08:20→17:51)
[2017-06-19] MEDS: QUEtiapine 25 MG Tab PO SCH ×2 (08:21→21:26)
[2017-06-19] MEDS: Folic Acid 1 MG Tab PO SCH (08:21)
[2017-06-19] MEDS: Amiodarone 200 MG Tab PO SCH ×2 (08:22→21:25)
[2017-06-19] MEDS ORDERED: cefTRIAXone 1 GM in Premix Bag 1 BAG IV SCH (08:30)
[2017-06-19] MEDS ORDERED: Lisinopril 5 MG Tab PO SCH (09:00)
--- NOTE | 2017-06-19 12:39 | PCM.PN ---
- General Info Date of Service: 06/19/17 Admission Dx/Problem (Free Text): Hyperkalemia, fatigue and weakness Functional Status: Reports: Pain Controlled, Tolerating Diet - Review of Systems General: Reports: Weakness HEENT: Reports: No Symptoms Pulmonary: Reports: No Symptoms Cardiovascular: Reports: No Symptoms Gastrointestinal: Reports: No Symptoms Genitourinary: Reports: No Symptoms Musculoskeletal: Reports: No Symptoms Skin: Reports: No Symptoms Neurological: Reports: No Symptoms Psychiatric: Reports: No Symptoms - Patient Data Vitals - most recent: Last Vital Signs Temp 36.2 C 06/19/17 08:00 Pulse 81 06/19/17 08:20 Resp 18 06/19/17 08:00 BP 108/70 06/19/17 08:21 Pulse Ox 88 L 06/19/17 08:00 Weight - most recent: 69.4 kg I&O - last 24 hours: Intake & Output 06/18/17 06/19/17 06/19/17 22:59 06:59 14:59 Intake Total 1480 50 Output Total 950 Balance 530 50 Lab Results last 24 hrs: Laboratory Results - last 24 hr 06/19/17 06/19/17 06/19/17 Range/Units 01:08 02:20 10:48 Sodium 130 L 132 L (136-146) mmol/L Potassium 6.6 H 5.6 H (3.5-5.1) mmol/L Chloride 99 102 (98-110) mmol/L Carbon Dioxide 23 21 (21-31) mmol/L BUN 45 H 43 H (6.0-23.0) mg/dL Creatinine 2.4 H 2.2 H (0.6-1.5) mg/dL Est Cr Clr Drug Dosing 27.94 30.48 mL/min Estimated GFR (MDRD) 27.0 29.8 ml/min Glucose 88 124 H (60-110) mg/dL Calcium 9.2 8.8 (8.8-10.8) mg/dL Urine Color YELLOW Urine Appearance SLT CLOUDY Urine pH 5.5 (5.0-8.0) Ur Specific [place] 1.020 (1.001-1.035) Urine Protein NEGATIVE (NEGATIVE) mg/dL Urine Glucose (UA) NEGATIVE (NEGATIVE) mg/dL Urine Ketones NEGATIVE (NEGATIVE) mg/dL Urine Occult Blood LARGE H (NEGATIVE) Urine Nitrite NEGATIVE (NEGATIVE) Urine Bilirubin NEGATIVE (NEGATIVE) Urine Urobilinogen 0.2 (<2.0) EU/dL Ur Leukocyte Esterase LARGE (NEGATIVE) Urine RBC 25-30 (0-2/HPF) Urine WBC 40-50 (0-5/HPF) Ur Epithelial Cells OCCASIONAL (NONE-FEW) Ur Renal Epithelial Cell RARE Urine Bacteria 2+ H (NEGATIVE) Med Orders - Current: Current Medications Acetaminophen (Tylenol) 650 mg PO Q4H PRN PRN Reason: Pain (Mild 1-3)/fever Albuterol (Proventil Neb Soln) 2.5 mg NEB Q6HRRT [facility] Last Admin: 06/19/17 11:07 Dose: 2.5 mg Albuterol (Proventil Neb Soln) 2.5 mg NEB Q12HR PRN PRN Reason: Shortness of Breath Amiodarone HCl (Cordarone) 100 mg PO BID [facility] Last Admin: 06/19/17 08:22 Dose: 100 mg Carvedilol (Coreg) 3.125 mg PO BIDMEALS [facility] Last Admin: 06/19/17 08:20 Dose: 3.125 mg Docusate Sodium (Colace) 100 mg PO BID PRN PRN Reason: Constipation Folic Acid (Folic Acid) 1 mg PO DAILY [facility] Last Admin: 06/19/17 08:21 Dose: 1 mg Heparin Sodium (Porcine) (Heparin Sodium) 5,000 units SUBCUT Q8H [facility] Last Admin: 06/19/17 05:44 Dose: 5,000 units Lactated Ringer's (Ringers, Lactated) 1,000 mls @ 150 mls/hr IV ASDIRECTED [facility] Sodium Chloride (Normal Saline) 1,000 mls @ 75 mls/hr IV ASDIRECTED [facility] Last Admin: 06/19/17 05:48 Dose: 75 mls/hr Meropenem 1 gm/ Sodium (Chloride) 50 mls @ 100 mls/hr IV Q12H [facility] Last Admin: 06/19/17 11:03 Dose: 100 mls/hr Morphine Sulfate (Morphine) 2 mg IVPUSH Q2H PRN PRN Reason: Pain (severe 7-10) Stop: 06/19/17 21:56 Ondansetron HCl (Zofran Odt) 4 mg PO Q6H PRN PRN Reason: nausea, able to take PO Oxycodone HCl (Oxycodone) 5 mg PO Q4H PRN PRN Reason: Pain (moderate 4-6) Last Admin: 06/19/17 08:58 Dose: 5 mg Quetiapine Fumarate (Seroquel) 25 mg PO BID [facility] Last Admin: 06/19/17 08:21 Dose: 25 mg Fluticasone/Salmeterol (Advair Diskus 250-50) 1 puff INH DAILY [facility] Last Admin: 06/19/17 08:03 Dose: 1 inhalation Sodium Polystyrene Sulfonate (Kayexalate) 15 gm PO Q8H [facility] Last Admin: 06/19/17 05:44 Dose: 15 gm Temazepam (Restoril) 15 mg PO BEDTIME PRN PRN Reason: Sleep Discontinued Medications Albuterol (Proventil Neb Soln) 2.5 mg NEB ONETIME ONE Stop: 06/18/17 20:45 Last Admin: 06/18/17 20:54 Dose: 2.5 mg Albuterol (Proventil Neb Soln) 5 mg NEB Q12HR PRN PRN Reason: Shortness of Breath Albuterol (Proventil Neb Soln) 5 mg NEB Q6HRRT [facility] Last Admin: 06/19/17 02:15 Dose: Not Given Calcium Gluconate (Calcium Gluconate) 1 gm IVPUSH ONETIME ONE Stop: 06/18/17 20:38 Last Admin: 06/18/17 20:48 Dose: 1 gm Sodium Chloride (Normal Saline) 1,000 mls @ 250 mls/hr IV STAT ONE Stop: 06/18/17 23:10 Last Admin: 06/18/17 19:25 Dose: 250 mls/hr Ceftriaxone Sodium/Dextrose 1 (gm/ Premix) 50 mls @ 100 mls/hr IV Q24H [facility] Last Admin: 06/19/17 08:47 Dose: 100 mls/hr Ketorolac Tromethamine (Toradol) 30 mg IVPUSH ONETIME ONE Stop: 06/18/17 19:20 Last Admin: 06/18/17 19:32 Dose: 30 mg Lisinopril (Prinivil) 5 mg PO DAILY [facility] Last Admin: 06/19/17 08:21 Dose: 5 mg - Exam Quality Assessment: No: supplemental oxygen General: alert, oriented, cooperative, no acute distress HEENT: Pupils equal, Pupils reactive Neck: supple, trachea midline Lungs: Clear to Auscultation, Normal Respiratory Effort Cardiovascular: Regular Rate, Regular Rhythm GI/Abdominal Exam: Normal Bowel Sounds, Soft Back Exam: Decreased Range of Motion Extremities: Normal Inspection Skin: warm, dry, intact Wound/Incisions: healing well Psy/Mental Status: alert, normal affect - Problem List & Annotations (1) Hyperkalemia SNOMED Code(s): 40267529 Code(s): E87.5 - HYPERKALEMIA Status: Acute Priority: High Current Visit: Yes Annotation/Comment:: Kayexalate ordered, calcium gluconate given in the ER (2) Dehydration SNOMED Code(s): 15865639 Code(s): E86.0 - DEHYDRATION Status: Acute Current Visit: Yes Annotation/Comment:: IV normal saline 75 mL per hour (3) Generalized weakness SNOMED Code(s): 98900975 Code(s): R53.1 - WEAKNESS Status: Acute Priority: High Current Visit: Yes (4) Acute kidney injury SNOMED Code(s): 78387728 Code(s): N17.9 - ACUTE KIDNEY FAILURE, UNSPECIFIED Status: Acute Priority : High Current Visit: Yes Annotation/Comment:: Gentle fluid resuscitation (5) UTI (urinary tract infection) SNOMED Code(s): 32276581 Code(s): N39.0 - URINARY TRACT INFECTION, SITE NOT SPECIFIED Status: Acute Priority: High Current Visit: No Qualifiers: Urinary tract infection type: acute cystitis Hematuria presence: with hematuria Qualified Code(s): N30.01 - Acute cystitis with hematuria Annotation/Comment:: ESB Klebsiella pneumoniae history - Problem List Review Problem List Initiated/Reviewed/Updated: Yes - My Orders Last 24 Hours: My Active Orders 06/18/17 21:53 Patient Status [ADT] Routine Oxygen Therapy [RC] PRN Up With Assistance [RC] ASDIRECTED Vital Signs [RC] Q4H Acetaminophen [Tylenol] 650 mg PO Q4H PRN Docusate Sodium [Colace] 100 mg PO BID PRN Morphine 2 mg IVPUSH Q2H PRN Ondansetron [Zofran ODT] 4 mg PO Q6H PRN Temazepam [Restoril] 15 mg PO BEDTIME PRN oxyCODONE 5 mg PO Q4H PRN Resuscitation Status Routine 06/18/17 21:55 Cardiac Monitoring [RC] CONTINUOUS 06/18/17 22:00 Heparin Sodium 5,000 units SUBCUT Q8H Sodium Chloride 0.9% [Normal Saline] 1,000 ml IV ASDIRECTED 06/18/17 22:30 Sodium Polystyrene Sulfonate [Kayexalate] 15 gm PO Q8H 06/19/17 01:08 CULTURE URINE [RM] Routine 06/19/17 01:55 RT Aerosol Therapy [RC] ASDIRECTED 06/19/17 01:57 RT Aerosol Therapy [RC] ASDIRECTED Albuterol [Proventil Neb Soln] 2.5 mg NEB Q12HR PRN 06/19/17 02:00 Albuterol [Proventil Neb Soln] 2.5 mg NEB Q6HRRT 06/19/17 08:00 Carvedilol [Coreg] 3.125 mg PO BIDMEALS 06/19/17 09:00 Amiodarone [Cordarone] 100 mg PO BID Fluticasone/Salmeterol [Advair Diskus 250-50] 1 puff INH DAILY Folic Acid 1 mg PO DAILY QUEtiapine [SEROquel] 25 mg PO BID 06/19/17 11:00 Meropenem [Merrem] 1 gm Sodium Chloride 0.9% [Normal Saline] 50 ml IV Q12H 06/19/17 16:00 BASIC METABOLIC PANEL,BMP [CHEM] Routine - Plan Plan:: The patient has been admitted as an inpatient secondary to his critical level potassium. I believe that the patient's source for his hyperkalemia is secondary to exogenous sources as he has been taking potassium supplements without Lasix. The patient will be gently fluid resuscitated because of his chronic kidney disease at 75 mL per hour. Also started the patient on Kayexalate at 15 g 4 times a day. I've ordered a repeat basic metabolic panel every 6 hours and I will also place patient on telemetry. The patient does show renal insufficiency and it's uncertain at this time if it is chronic or acute. I suspect it likely is acute and will gently fluid resuscitate and monitor his BUN/creatinine. The patient also be kept on regular diet as tolerated. He will also be kept on his medications as prescribed. I'll see the patient in follow- up in his overall treatment plan will be adjusted as conditions and information indicates. June 19, 2017: Patient is a 67-year-old gentleman who was admitted as an inpatient secondary to hyperkalemia. Patient was treated with Kayexalate and his potassium was monitored every 6 hours. The patient's latest potassium is mildly elevated at 5.6 mmol per liter. The patient will be continued with his Kayexalate. Patient also has a urinalysis does show evidence of pyuria with a urinary tract infection and bacteriuria. 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 I had a conversation with the pharmacist on duty and because of this history of ESB the patient was changed from Rocephin to meropenem. The patient's previous sensitivity for this bacteria did show sensitive to meropenem and ertapenem. 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 The patient's hyponatremia has also improved to 132 mmol per liter. I'll continue the patient on IV fluids with slow gentle resuscitation at 75 mL per hour. The patient will be continued on his diet as tolerated. I've encouraged physical therapy with ambulation for the patient. I suspect that once patient has completely normalized and he is doing better and is no other evidence of urinary tract infection that he might be appropriate for discharge back to [place]. The patient's treatment plan will be adjusted accordingly.
[2017-06-19] MEDS ORDERED: Sodium Chloride 0.9% 1,000 ML IV SCH (13:45)
--- NOTE | 2017-06-19 15:11 | CR ---
EXAM DATE: 06/18/17 PATIENT'S AGE: 67 Patient: COURTNEY PAEZ Facility: [place], [place] Site . Site : [id number] Study: XRay Chest [id number]/23/2017 8:19:44 PM Ordering Physician: Doctor Patrick Final Report: INDICATION: Generalized weakness TECHNIQUE: Chest 2 views. COMPARISON: May 22, 2017 FINDINGS/ IMPRESSION: Stable cardiac size. No new focal infiltrate. No pneumothorax. Blunting of the right costophrenic angle likely due to a small amount of pleural fluid. Plate and screw hardware across several right ribs. Dictated by Amy Eastman MD @ Jun 18 2017 8:45PM (Electronic Signature) Report Signed by Proxy. MARIA L
[2017-06-19] MEDS: Norepinephrine Bit/0.9 % NaCl 4 MG in Premix Bag 1 BAG IV SCH (16:46)
--- NOTE | 2017-06-19 16:47 | PCM.SN ---
- Free Text/Narrative Note: The patient is a 67-year-old gentleman who is known to have previous ESB Klebsiella pneumoniae urinary tract infection and possible colonization. The patient has had some episodes of possible neurotoxicity from carbopenem, ertapenem or meropenem. The patient's previous cultures showed sensitivity to amikacin. The patient is also known to be hypotensive with a blood pressure of 79/53. The patient has also had more confusion and lethargy. Because of the patient's new symptoms and his hypotension which has not been responsive to fluid I've elected to upgrade the patient to intensive care unit. I have asked the pharmacy to dose vancomycin for now the patient will be maintained on meropenem. Cultures are currently pending. The patient will also be placed on a lactate protocol was his lactate was 3.1. The patient also has had ordered an outlying along with central line for management of his fluids. The patient's updated potassium shows it at 5.8 mmol per liter and he is showing depression in his EGFR to 31 mL/m. The patient will be fluid resuscitated gently to prevent fluid overload which was similar to a previous hospitalization. The patient will be followed by pharmacist and myself and his overall treatment plan will be adjusted as conditions and information indicates. The patient's Kayexalate will be continued.
[2017-06-19] MEDS ORDERED: Midazolam 1 MG/ML 2 ML SDV ONE (17:09)
--- NOTE | 2017-06-19 17:53 | PCM.SN ---
- Free Text/Narrative Note: Notified by Juan Jose RN for CVL and Arterial Line placement. Dr Ochoa to come and do CVL. Risks and benefits of arterial line were explained with patient. He understands and wishes to proceed at this time. Rt radial artery was palpated - weak. Time out was preformed, Betadine was used to prep the right wrist. Sterile drapes were placed. 20g Arrow catheter was then introduced into the right radial artery. Guide wire advanced without difficulty, catheter was advanced over the guide wire without difficulty. Catheter was then transduced and showed good arterial waveform. +Pulsatile blood return was also noted. Arterial line armboard was used to secure the hand, catheter was secured with tegaderm and tape. Pt tolerated the procedure well. Versed 1mg IV was given at the start of the CVL placement for sedation. Pt tolerated both procedures well.
--- NOTE | 2017-06-19 18:00 | PCM.SN ---
- Free Text/Narrative Note: pt seen, chart reviewed, cx dictated; [id number]; proceed with central placement to L, risk and benefits dw pt re bleeding/infection/ptx requiring chest tube placement; pt consent and proceed
--- NOTE | 2017-06-19 18:01 | PCM.OPNOTE ---
- General Post-Op/Procedure Note Date of Surgery/Procedure: 06/19/17 Operative Procedure(s): central line placement to L subclavian v. Findings: good blood return except brown port, cxr pending Pre Op Diagnosis: urosepsis Post-Op Diagnosis: Same Anesthesia Technique: Moderate Sedation Primary Surgeon: Santhosh Ochoa Complications: None Condition: Fair Free Text/Narrative:: Intake & Output 06/19/17 06/19/17 06/19/17 06:59 14:59 22:59 Intake Total 1480 100 500 Output Total 950 550 Balance 530 100 -50
[2017-06-19] MEDS ORDERED: Meropenem 1 GM in Sodium Chloride 0.9% 100 ML IV SCH (23:00)
--- NOTE | 2017-06-19 23:22 | OR ---
SURGEON: Santhosh Ochoa MD DATE OF PROCEDURE: 06/19/2017 PREOPERATIVE DIAGNOSIS: Urosepsis, requiring IV access for treatment. POSTOPERATIVE DIAGNOSIS: Urosepsis, requiring IV access for treatment. PROCEDURE PERFORMED: Central line placement to the left subclavian vein. COMPLICATIONS: None. FINDING: Central line in with good blood return on 12/30, the brown port does not have a blood return. Await chest x-ray. INDICATIONS: The patient is a 67-year-old gentleman who was noted to have urosepsis and blood pressure is down, need to treat with Levophed that requires central line. Risks and benefits discussed with the patient including possible complication of pneumothorax requiring chest tube placement. The patient agreed to proceed. PROCEDURE IN DETAIL: Procedure was discussed with the patient, the patient agreed to proceed and surgery was proceeded at the ICU bedside after informed consent was signed and obtained. A roll towel was placed into the back spine to elevate the shoulder and the left clavicular area was prepped and draped in a sterile fashion. After assessment of appropriate landmark using Seldinger technique, a guidewire was placed with good blood return and followed with dilation and using Arrow kit central line was placed and with good blood return except the brown port, the other two ports had good blood return and the line was then secured to the skin using 0 silk. Chest x-ray was pending. The patient tolerated the procedure well. There were no intraoperative complications. Dr. Ochoa present throughout procedure. As always, thank you for the kind referral. add: line is in good position; no ptx; line is ok to use, routine online health and fitness coach LIANS / MODL /[id number] MARIA L
--- NOTE | 2017-06-19 23:22 | CONS ---
DATE OF CONSULTATION: 06/19/2017 DATE OF : 1950 PRIMARY CARE PHYSICIAN: None PCP CONSULTING DOCTOR: Dr. Xander Kapadia. CONCERNING QUESTION: IV line placement for treatment. HISTORY OF PRESENT ILLNESS: The patient is a 67-year-old gentleman admitted yesterday for UTI and subsequently, hypotension and refractory to treatment requiring Levophed administration, which was introduced through the central line. Surgery was then consulted. PAST MEDICAL HISTORY: Please refer to admission chart for detail. The patient looks like he had some kind of trauma to the left chest, have a collapsed lung requiring chest tube placement on the left, and also had a PICC line placed on the left side. PAST SURGICAL HISTORY: Please refer to admission chart for detail. ALLERGIES: Please refer to admission chart for detail. MEDICATIONS: Please refer to admission chart for detail. FAMILY HISTORY: Noncontributory. PHYSICAL EXAMINATION: GENERAL: A very pleasant, nice gentleman, in no acute distress. HEENT: Normocephalic, atraumatic. Sclerae anicteric. LUNGS: Clear to auscultation. HEART: Regular rate and rhythm. ABDOMEN: Soft, nondistended. No pulsating, tender midline abdominal structure. No surgical scar. Trachea is midline. No crepitus. Both clavicle are smooth. No signs or symptoms of trauma. IMPRESSION: Urosepsis requiring Levophed administration that requires central line placement and the patient would benefit from having a procedure. Risks and benefits were discussed with the patient including bleeding, infection, and pneumothorax, requiring chest tube placement. As always, thank you for the kind referral. DON TEJADA /[id number] MARIA L
[2017-06-20] MEDS: Albuterol 0.083% 2.5 MG/3 ML Neb Soln NEB SCH ×4 (00:34→18:29)
[2017-06-20] MEDS ORDERED: Magnesium Sulfate/Water 2 GM in Premix Bag 1 BAG IV ONE (06:00)
[2017-06-20] MEDS: Sodium Polystyrene Sulfonate 15 GM/60 ML Susp 60 ML Bot PO SCH (06:20)
[2017-06-20] MEDS: Sodium Chloride 0.9% 1,000 ML IV SCH ×2 (06:23→15:42)
[2017-06-20] MEDS: Heparin Sodium 5,000 Units/ML Vial SUBCUT SCH ×3 (06:24→22:58)
[2017-06-20] MEDS: Norepinephrine Bit/0.9 % NaCl 4 MG in Premix Bag 1 BAG IV SCH (06:27)
[2017-06-20] MEDS: Carvedilol 3.125 MG Tab PO SCH ×2 (08:57→17:15)
--- NOTE | 2017-06-20 09:23 | PCM.PN ---
- General Info Date of Service: 06/20/17 - Review of Systems General: Reports: No Symptoms HEENT: Reports: No Symptoms Pulmonary: Reports: No Symptoms Cardiovascular: Reports: No Symptoms Gastrointestinal: Reports: No Symptoms Genitourinary: Reports: No Symptoms, Incontinence Musculoskeletal: Reports: No Symptoms Skin: Reports: No Symptoms Neurological: Reports: No Symptoms Psychiatric: Reports: No Symptoms - Patient Data Vitals - Most Recent: Last Vital Signs Temp 98.4 F 06/20/17 04:00 Pulse 91 06/20/17 08:57 Resp 14 06/20/17 07:00 BP 104/47 L 06/20/17 08:57 Pulse Ox 95 06/20/17 07:00 Weight - Most Recent: 72.8 kg I&O - Last 24 Hours: Intake & Output 06/19/17 06/20/17 06/20/17 22:59 06:59 14:59 Intake Total 1999 1144 Output Total 550 1300 Balance 1450 -156 Lab Results Last 24 Hours: Laboratory Results - last 24 hr 06/19/17 06/19/17 06/19/17 Range/Units 10:48 13:04 13:51 WBC (4.0-11.0) K/uL RBC (4.50-5.90) M/uL Hgb (13.0-17.0) g/dL Hct (38.0-50.0) % MCV (80.0-98.0) fL MCH (27.0-32.0) pg MCHC (31.0-37.0) g/dL RDW Std Deviation (28.0-62.0) fl RDW Coeff of Jeannie (11.0-15.0) % Plt Count (150-400) K/uL MPV (7.40-12.00) fL Add Manual Diff Neutrophils % (Manual) (48.0-80.0) % Band Neutrophils % % Lymphocytes % (Manual) (16.0-40.0) % Monocytes % (Manual) (0.0-15.0) % Eosinophils % (Manual) (0.0-7.0) % Basophils % (Manual) (0.0-1.5) % Nucleated RBC % /100WBC Absolute Seg Neuts Band Neutrophils # Lymphocytes # (Manual) Monocytes # (Manual) Eosinophils # (Manual) Basophils # (Manual) Nucleated RBCs # K/uL Lactate (0.20-2.00) mmol/L Sodium 132 L 132 L (136-146) mmol/L Potassium 5.6 H 5.8 H (3.5-5.1) mmol/L Chloride 102 103 (98-110) mmol/L Carbon Dioxide 21 19 L (21-31) mmol/L BUN 43 H 41 H (6.0-23.0) mg/dL Creatinine 2.2 H 2.2 H (0.6-1.5) mg/dL Est Cr Clr Drug Dosing 30.48 31.11 mL/min Estimated GFR (MDRD) 29.8 29.8 ml/min Glucose 124 H 111 H (60-110) mg/dL POC Glucose 110 (60-110) mg/dL Calcium 8.8 8.7 L (8.8-10.8) mg/dL Phosphorus (2.4-4.7) mg/dL Magnesium (1.5-2.3) mEq/L Total Bilirubin (0.1-1.5) mg/dL AST (5-40) IU/L ALT (8-54) IU/L Alkaline Phosphatase (40-150) Total Protein (6.0-8.0) g/dL Albumin (3.4-4.8) g/dL Globulin (2.0-3.5) g/dL Albumin/Globulin Ratio (1.3-2.8) 06/19/17 06/19/17 06/20/17 Range/Units 15:27 20:39 05:10 WBC 10.31 (4.0-11.0) K/uL RBC 3.97 L (4.50-5.90) M/uL Hgb 10.8 L (13.0-17.0) g/dL Hct 33.7 L (38.0-50.0) % MCV 84.9 (80.0-98.0) fL MCH 27.2 (27.0-32.0) pg MCHC 32.0 (31.0-37.0) g/dL RDW Std Deviation 54.6 (28.0-62.0) fl RDW Coeff of Jeannie 17 H (11.0-15.0) % Plt Count 414 H (150-400) K/uL MPV 9.30 (7.40-12.00) fL Add Manual Diff YES Neutrophils % (Manual) 78 (48.0-80.0) % Band Neutrophils % 3 % Lymphocytes % (Manual) 9 L (16.0-40.0) % Monocytes % (Manual) 6 (0.0-15.0) % Eosinophils % (Manual) 3 (0.0-7.0) % Basophils % (Manual) 1 (0.0-1.5) % Nucleated RBC % 0.0 /100WBC Absolute Seg Neuts 8.0 Band Neutrophils # 0.3 Lymphocytes # (Manual) 0.9 Monocytes # (Manual) 0.6 Eosinophils # (Manual) 0.3 Basophils # (Manual) 0 Nucleated RBCs # 0 K/uL Lactate 3.1 H 0.5 (0.20-2.00) mmol/L Sodium (136-146) mmol/L Potassium (3.5-5.1) mmol/L Chloride (98-110) mmol/L Carbon Dioxide (21-31) mmol/L BUN (6.0-23.0) mg/dL Creatinine (0.6-1.5) mg/dL Est Cr Clr Drug Dosing mL/min Estimated GFR (MDRD) ml/min Glucose (60-110) mg/dL POC Glucose (60-110) mg/dL Calcium (8.8-10.8) mg/dL Phosphorus (2.4-4.7) mg/dL Magnesium (1.5-2.3) mEq/L Total Bilirubin (0.1-1.5) mg/dL AST (5-40) IU/L ALT (8-54) IU/L Alkaline Phosphatase (40-150) Total Protein (6.0-8.0) g/dL Albumin (3.4-4.8) g/dL Globulin (2.0-3.5) g/dL Albumin/Globulin Ratio (1.3-2.8) 06/20/17 Range/Units 05:10 WBC (4.0-11.0) K/uL RBC (4.50-5.90) M/uL Hgb (13.0-17.0) g/dL Hct (38.0-50.0) % MCV (80.0-98.0) fL MCH (27.0-32.0) pg MCHC (31.0-37.0) g/dL RDW Std Deviation (28.0-62.0) fl RDW Coeff of Jeannie (11.0-15.0) % Plt Count (150-400) K/uL MPV (7.40-12.00) fL Add Manual Diff Neutrophils % (Manual) (48.0-80.0) % Band Neutrophils % % Lymphocytes % (Manual) (16.0-40.0) % Monocytes % (Manual) (0.0-15.0) % Eosinophils % (Manual) (0.0-7.0) % Basophils % (Manual) (0.0-1.5) % Nucleated RBC % /100WBC Absolute Seg Neuts Band Neutrophils # Lymphocytes # (Manual) Monocytes # (Manual) Eosinophils # (Manual) Basophils # (Manual) Nucleated RBCs # K/uL Lactate (0.20-2.00) mmol/L Sodium 135 L (136-146) mmol/L Potassium 4.5 (3.5-5.1) mmol/L Chloride 108 (98-110) mmol/L Carbon Dioxide 21 (21-31) mmol/L BUN 31 H (6.0-23.0) mg/dL Creatinine 1.5 (0.6-1.5) mg/dL Est Cr Clr Drug Dosing 47.86 mL/min Estimated GFR (MDRD) 46.4 ml/min Glucose 109 (60-110) mg/dL POC Glucose (60-110) mg/dL Calcium 7.9 L (8.8-10.8) mg/dL Phosphorus 4.6 (2.4-4.7) mg/dL Magnesium 1.2 L (1.5-2.3) mEq/L Total Bilirubin 0.3 (0.1-1.5) mg/dL AST 10 (5-40) IU/L ALT 11 (8-54) IU/L Alkaline Phosphatase 184 H (40-150) Total Protein 5.5 L (6.0-8.0) g/dL Albumin 2.2 L (3.4-4.8) g/dL Globulin 3.3 (2.0-3.5) g/dL Albumin/Globulin Ratio 0.7 L (1.3-2.8) Med Orders - Current: Current Medications Acetaminophen (Tylenol) 650 mg PO Q4H PRN PRN Reason: Pain (Mild 1-3)/fever Albuterol (Proventil Neb Soln) 2.5 mg NEB Q6HRRT [facility] Last Admin: 06/20/17 06:42 Dose: 2.5 mg Albuterol (Proventil Neb Soln) 2.5 mg NEB Q12HR PRN PRN Reason: Shortness of Breath Amiodarone HCl (Cordarone) 100 mg PO BID [facility] Last Admin: 06/19/17 21:25 Dose: 100 mg Carvedilol (Coreg) 3.125 mg PO BIDMEALS [facility] Last Admin: 06/20/17 08:57 Dose: Not Given Docusate Sodium (Colace) 100 mg PO BID PRN PRN Reason: Constipation Folic Acid (Folic Acid) 1 mg PO DAILY [facility] Last Admin: 06/19/17 08:21 Dose: 1 mg Heparin Sodium (Porcine) (Heparin Sodium) 5,000 units SUBCUT Q8H [facility] Last Admin: 06/20/17 06:24 Dose: 5,000 units Sodium Chloride (Normal Saline) 1,000 mls @ 125 mls/hr IV ASDIRECTED [facility] Last Admin: 06/20/17 06:23 Dose: 125 mls/hr Norepinephrine Bitartrate 4 mg (/ Premix) 250 mls @ 7.5 mls/hr IV TITRATE JOSE; 2 MCG/MIN PRN Reason: Protocol Last Titration: 06/20/17 08:07 Dose: 4 mcg/min, 15 mls/hr Vancomycin HCl 1 gm/ Sodium (Chloride) 250 mls @ 250 mls/hr IV Q24H JOSE Meropenem 1 gm/ Sodium (Chloride) 50 mls @ 100 mls/hr IV Q12H [facility] Ondansetron HCl (Zofran Odt) 4 mg PO Q6H PRN PRN Reason: nausea, able to take PO Oxycodone HCl (Oxycodone) 5 mg PO Q4H PRN PRN Reason: Pain (moderate 4-6) Last Admin: 06/19/17 08:58 Dose: 5 mg Quetiapine Fumarate (Seroquel) 25 mg PO BID [facility] Last Admin: 06/19/17 21:26 Dose: 25 mg Fluticasone/Salmeterol (Advair Diskus 250-50) 1 puff INH DAILY [facility] Last Admin: 06/19/17 08:03 Dose: 1 inhalation Temazepam (Restoril) 15 mg PO BEDTIME PRN PRN Reason: Sleep Discontinued Medications Albuterol (Proventil Neb Soln) 2.5 mg NEB ONETIME ONE Stop: 06/18/17 20:45 Last Admin: 06/18/17 20:54 Dose: 2.5 mg Albuterol (Proventil Neb Soln) 5 mg NEB Q12HR PRN PRN Reason: Shortness of Breath Albuterol (Proventil Neb Soln) 5 mg NEB Q6HRRT [facility] Last Admin: 06/19/17 02:15 Dose: Not Given Calcium Gluconate (Calcium Gluconate) 1 gm IVPUSH ONETIME ONE Stop: 06/18/17 20:38 Last Admin: 06/18/17 20:48 Dose: 1 gm Sodium Chloride (Normal Saline) 1,000 mls @ 250 mls/hr IV STAT ONE Stop: 06/18/17 23:10 Last Admin: 06/18/17 19:25 Dose: 250 mls/hr Lactated Ringer's (Ringers, Lactated) 1,000 mls @ 150 mls/hr IV ASDIRECTED JOSE Sodium Chloride (Normal Saline) 1,000 mls @ 100 mls/hr IV ASDIRECTED [facility] Last Admin: 06/19/17 05:48 Dose: 75 mls/hr Ceftriaxone Sodium/Dextrose 1 (gm/ Premix) 50 mls @ 100 mls/hr IV Q24H [facility] Last Admin: 06/19/17 08:47 Dose: 100 mls/hr Meropenem 1 gm/ Sodium (Chloride) 50 mls @ 100 mls/hr IV Q12H [facility] Last Admin: 06/19/17 11:03 Dose: 100 mls/hr Sodium Chloride (Normal Saline) 1,000 mls @ 100 mls/hr IV ASDIRECTED [facility] Last Admin: 06/19/17 13:47 Dose: 100 mls/hr Vancomycin HCl 1,500 mg/ (Sodium Chloride) 500 mls @ 166.667 mls/hr IV ONETIME ONE Stop: 06/19/17 19:59 Last Admin: 06/19/17 17:50 Dose: 166.667 mls/hr Norepinephrine Bitartrate (Norepinephr-0.9% Nacl 4 Mg/250) Confirm Administered Dose 250 mls @ as directed IV .STK-MED ONE Stop: 06/19/17 16:39 Last Admin: 06/19/17 17:46 Dose: Not Given Meropenem 1 gm/ Sodium (Chloride) 100 mls @ 200 mls/hr IV Q12H [facility] Meropenem 1 gm/ Sodium (Chloride) 50 mls @ 100 mls/hr IV Q12H [facility] Last Admin: 06/19/17 23:16 Dose: 100 mls/hr Magnesium Sulfate 2 gm/ Premix 50 mls @ 50 mls/hr IV ONETIME ONE Stop: 06/20/17 06:59 Last Admin: 06/20/17 06:27 Dose: 50 mls/hr Ketorolac Tromethamine (Toradol) 30 mg IVPUSH ONETIME ONE Stop: 06/18/17 19:20 Last Admin: 06/18/17 19:32 Dose: 30 mg Lisinopril (Prinivil) 5 mg PO DAILY [facility] Last Admin: 06/19/17 08:21 Dose: 5 mg Midazolam HCl (Versed 1 Mg/Ml) Confirm Administered Dose 2 mg .ROUTE .STK-MED ONE Stop: 06/19/17 17:10 Last Admin: 06/19/17 17:47 Dose: Not Given Morphine Sulfate (Morphine) 2 mg IVPUSH Q2H PRN PRN Reason: Pain (severe 7-10) Stop: 06/19/17 21:56 Sodium Polystyrene Sulfonate (Kayexalate) 15 gm PO Q8H [facility] Last Admin: 06/20/17 06:20 Dose: Not Given - Exam Quality Assessment: Supplemental Oxygen General: Alert HEENT: Pupils Equal, EOMI Neck: Supple, Trachea Midline Lungs: Decreased Breath Sounds, Other (left central line in place.) Cardiovascular: Regular Rate, Regular Rhythm GI/Abdominal Exam: Normal Bowel Sounds, Soft (Male) Exam: Other (garrett: clear urine) Back Exam: Normal Inspection, Full Range of Motion Extremities: Normal Inspection, Normal Range of Motion, Other (right arterial line) Skin: Warm, Dry Neurological: No New Focal Deficit Psy/Mental Status: Alert - Problem List Review Problem List Initiated/Reviewed/Updated: Yes - Plan Plan:: The patient has been admitted as an inpatient secondary to his critical level potassium. I believe that the patient's source for his hyperkalemia is secondary to exogenous sources as he has been taking potassium supplements without Lasix. The patient will be gently fluid resuscitated because of his chronic kidney disease at 75 mL per hour. Also started the patient on Kayexalate at 15 g 4 times a day. I've ordered a repeat basic metabolic panel every 6 hours and I will also place patient on telemetry. The patient does show renal insufficiency and it's uncertain at this time if it is chronic or acute. I suspect it likely is acute and will gently fluid resuscitate and monitor his BUN/creatinine. The patient also be kept on regular diet as tolerated. He will also be kept on his medications as prescribed. I'll see the patient in follow- up in his overall treatment plan will be adjusted as conditions and information indicates. June 19, 2017: Patient is a 67-year-old gentleman who was admitted as an inpatient secondary to hyperkalemia. Patient was treated with Kayexalate and his potassium was monitored every 6 hours. The patient's latest potassium is mildly elevated at 5.6 mmol per liter. The patient will be continued with his Kayexalate. Patient also has a urinalysis does show evidence of pyuria with a urinary tract infection and bacteriuria. 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 I had a conversation with the pharmacist on duty and because of this history of ESB the patient was changed from Rocephin to meropenem. The patient's previous sensitivity for this bacteria did show sensitive to meropenem and ertapenem. 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 The patient's hyponatremia has also improved to 132 mmol per liter. I'll continue the patient on IV fluids with slow gentle resuscitation at 75 mL per hour. The patient will be continued on his diet as tolerated. I've encouraged physical therapy with ambulation for the patient. I suspect that once patient has completely normalized and he is doing better and is no other evidence of urinary tract infection that he might be appropriate for discharge back to [place]. The patient's treatment plan will be adjusted accordingly. June 20/2017 Urosepsis: lactate normal. continue meropenam and vancomycin. urine cultures pending for sensitivities to narrow antibiotics. blood cultures negative. Hyperkalemia: resolved K 4.5 today. DC kayexalate WILLI: improving cr today is 1.5 Hypotension 98/47 today: hold coreg x 1. wean levophed He probably needs Picc line placement by end of the week for 2 weeks of I.V antibiotics to [facility].
[2017-06-20] MEDS: QUEtiapine 25 MG Tab PO SCH ×2 (09:42→20:52)
[2017-06-20] MEDS: Folic Acid 1 MG Tab PO SCH (09:42)
[2017-06-20] MEDS: Amiodarone 200 MG Tab PO SCH ×2 (09:42→20:52)
[2017-06-20] MEDS: Fluticasone/Salmeterol 250-50 MCG Inhalation Powder 14/Diskus INH SCH (09:49)
--- NOTE | 2017-06-20 10:38 | CR ---
EXAM DATE: 06/18/17 PATIENT'S AGE: 67 Patient: COURTNEY PAEZ Facility: [place], [place] Site . Site : [id number] Study: XRay Chest [id number]/24/2017 6:03:50 PM Ordering Physician: Steffi Terrell Final Report: INDICATION: Central line placement TECHNIQUE: Chest 1 view. 5:52 p.m. COMPARISON: 06/18/2017 FINDINGS: Cardiovascular and mediastinum: Heart size and vasculature are normal in caliber and appearance. Mediastinum is within normal limits. Left-sided subclavian central line tip terminates in the SVC. Lungs and pleural space: Lungs are clear. No sign of infiltrate or mass. No sign of pleural effusion. No pneumothorax. Bones and soft tissues: Multiple right rib plates. IMPRESSION: Left-sided central line tip terminates in the proximal SVC. No pneumothorax. Dictated by Nawaf Agarwal MD @ 06/19/2017 6:33:14 PM Dictated by: Nawaf Agarwal MD @ 06/19/2017 18:33:18 (Electronic Signature) Report Signed by Proxy. [facility]
[2017-06-21] MEDS: Sodium Chloride 0.9% 1,000 ML IV SCH ×3 (00:06→16:08)
[2017-06-21] MEDS: Albuterol 0.083% 2.5 MG/3 ML Neb Soln NEB SCH ×4 (00:07→18:16)
[2017-06-21] MEDS: Heparin Sodium 5,000 Units/ML Vial SUBCUT SCH ×3 (05:21→21:59)
[2017-06-21 05:54] LABS: CHLORIDE,CL 109 mmol/L (98-110); SODIUM,NA 136 mmol/L (136-146)
[2017-06-21] MEDS: Carvedilol 3.125 MG Tab PO SCH ×2 (08:45→17:39)
[2017-06-21] MEDS: Folic Acid 1 MG Tab PO SCH (08:54)
[2017-06-21] MEDS: QUEtiapine 25 MG Tab PO SCH ×2 (08:54→21:58)
[2017-06-21] MEDS: Fluticasone/Salmeterol 250-50 MCG Inhalation Powder 14/Diskus INH SCH (08:54)
[2017-06-21] MEDS: Amiodarone 200 MG Tab PO SCH ×2 (08:54→21:58)
--- NOTE | 2017-06-21 10:23 | PCM.PN ---
- General Info Date of Service: 06/21/17 Subjective Update: off levophed. VSS. creatine normal limits. lactate normal. good appetite. Functional Status: Reports: Pain Controlled, Tolerating Diet, Ambulating, Urinating - Review of Systems General: Reports: No Symptoms HEENT: Reports: No Symptoms Pulmonary: Reports: No Symptoms Cardiovascular: Reports: No Symptoms Gastrointestinal: Reports: No Symptoms Genitourinary: Reports: No Symptoms Musculoskeletal: Reports: No Symptoms Skin: Reports: No Symptoms Neurological: Reports: No Symptoms Psychiatric: Reports: No Symptoms - Patient Data Vitals - Most Recent: Last Vital Signs Temp 98.1 F 06/21/17 04:00 Pulse 92 06/21/17 08:45 Resp 18 06/21/17 07:00 BP 128/55 L 06/21/17 08:45 Pulse Ox 96 06/21/17 07:00 Weight - Most Recent: 75.6 kg I&O - Last 24 Hours: Intake & Output 06/20/17 06/21/17 06/21/17 22:59 06:59 14:59 Intake Total 750 1900 Output Total 1290 1000 Balance -540 900 Lab Results Last 24 Hours: Laboratory Results - last 24 hr 06/21/17 06/21/17 06/21/17 Range/Units 05:11 05:11 05:11 WBC 6.89 (4.0-11.0) K/uL RBC 3.44 L (4.50-5.90) M/uL Hgb 9.9 L (13.0-17.0) g/dL Hct 30.4 L (38.0-50.0) % MCV 88.4 (80.0-98.0) fL MCH 28.8 (27.0-32.0) pg MCHC 32.6 (31.0-37.0) g/dL RDW Std Deviation 55.6 (28.0-62.0) fl RDW Coeff of Jeannie 18 H (11.0-15.0) % Plt Count 318 (150-400) K/uL MPV 10.00 (7.40-12.00) fL Add Manual Diff YES Neutrophils % (Manual) 60 (48.0-80.0) % Band Neutrophils % 2 % Lymphocytes % (Manual) 21 (16.0-40.0) % Monocytes % (Manual) 13 (0.0-15.0) % Eosinophils % (Manual) 3 (0.0-7.0) % Basophils % (Manual) 1 (0.0-1.5) % Nucleated RBC % 0.0 /100WBC Absolute Seg Neuts 4.1 Band Neutrophils # 0.1 Lymphocytes # (Manual) 1.4 Monocytes # (Manual) 0.9 Eosinophils # (Manual) 0.2 Basophils # (Manual) 0 Nucleated RBCs # 0 K/uL Sodium 136 (136-146) mmol/L Potassium 4.5 (3.5-5.1) mmol/L Chloride 109 (98-110) mmol/L Carbon Dioxide 21 (21-31) mmol/L BUN 17 (6.0-23.0) mg/dL Creatinine 1.0 (0.6-1.5) mg/dL Est Cr Clr Drug Dosing 74.55 mL/min Estimated GFR (MDRD) > 60.0 ml/min Glucose 93 (60-110) mg/dL Calcium 7.7 L (8.8-10.8) mg/dL Magnesium 1.2 L (1.5-2.3) mEq/L Lebron Results Last 24 Hours: Microbiology 06/19/17 01:08 Urine Culture - Final Urine, Voided Klebsiella Pneumoniae Normal Urogenital E[place] Med Orders - Current: Current Medications Acetaminophen (Tylenol) 650 mg PO Q4H PRN PRN Reason: Pain (Mild 1-3)/fever Albuterol (Proventil Neb Soln) 2.5 mg NEB Q6HRRT [facility] Last Admin: 06/21/17 07:18 Dose: 2.5 mg Albuterol (Proventil Neb Soln) 2.5 mg NEB Q12HR PRN PRN Reason: Shortness of Breath Amiodarone HCl (Cordarone) 100 mg PO BID [facility] Last Admin: 06/21/17 08:54 Dose: 100 mg Carvedilol (Coreg) 3.125 mg PO BIDMEALS [facility] Last Admin: 06/21/17 08:45 Dose: Not Given Docusate Sodium (Colace) 100 mg PO BID PRN PRN Reason: Constipation Folic Acid (Folic Acid) 1 mg PO DAILY [facility] Last Admin: 06/21/17 08:54 Dose: 1 mg Heparin Sodium (Porcine) (Heparin Sodium) 5,000 units SUBCUT Q8H [facility] Last Admin: 06/21/17 05:21 Dose: 5,000 units Sodium Chloride (Normal Saline) 1,000 mls @ 125 mls/hr IV ASDIRECTED JOSE Last Admin: 06/21/17 00:06 Dose: 125 mls/hr Norepinephrine Bitartrate 4 mg (/ Premix) 250 mls @ 7.5 mls/hr IV TITRATE JOSE; 2 MCG/MIN PRN Reason: Protocol Last Titration: 06/21/17 00:00 Dose: 0 mcg/min, 0 mls/hr Meropenem 1 gm/ Sodium (Chloride) 50 mls @ 100 mls/hr IV Q8H JOSE Ondansetron HCl (Zofran Odt) 4 mg PO Q6H PRN PRN Reason: nausea, able to take PO Oxycodone HCl (Oxycodone) 5 mg PO Q4H PRN PRN Reason: Pain (moderate 4-6) Last Admin: 06/19/17 08:58 Dose: 5 mg Quetiapine Fumarate (Seroquel) 25 mg PO BID [facility] Last Admin: 06/21/17 08:54 Dose: 25 mg Fluticasone/Salmeterol (Advair Diskus 250-50) 1 puff INH DAILY [facility] Last Admin: 06/21/17 08:54 Dose: 1 inhalation Temazepam (Restoril) 15 mg PO BEDTIME PRN PRN Reason: Sleep Discontinued Medications Albuterol (Proventil Neb Soln) 2.5 mg NEB ONETIME ONE Stop: 06/18/17 20:45 Last Admin: 06/18/17 20:54 Dose: 2.5 mg Albuterol (Proventil Neb Soln) 5 mg NEB Q12HR PRN PRN Reason: Shortness of Breath Albuterol (Proventil Neb Soln) 5 mg NEB Q6HRRT [facility] Last Admin: 06/19/17 02:15 Dose: Not Given Calcium Gluconate (Calcium Gluconate) 1 gm IVPUSH ONETIME ONE Stop: 06/18/17 20:38 Last Admin: 06/18/17 20:48 Dose: 1 gm Sodium Chloride (Normal Saline) 1,000 mls @ 250 mls/hr IV STAT ONE Stop: 06/18/17 23:10 Last Admin: 06/18/17 19:25 Dose: 250 mls/hr Lactated Ringer's (Ringers, Lactated) 1,000 mls @ 150 mls/hr IV ASDIRECTED [facility] Sodium Chloride (Normal Saline) 1,000 mls @ 100 mls/hr IV ASDIRECTED [facility] Last Admin: 06/19/17 05:48 Dose: 75 mls/hr Ceftriaxone Sodium/Dextrose 1 (gm/ Premix) 50 mls @ 100 mls/hr IV Q24H [facility] Last Admin: 06/19/17 08:47 Dose: 100 mls/hr Meropenem 1 gm/ Sodium (Chloride) 50 mls @ 100 mls/hr IV Q12H [facility] Last Admin: 06/19/17 11:03 Dose: 100 mls/hr Sodium Chloride (Normal Saline) 1,000 mls @ 100 mls/hr IV ASDIRECTED [facility] Last Admin: 06/19/17 13:47 Dose: 100 mls/hr Vancomycin HCl 1,500 mg/ (Sodium Chloride) 500 mls @ 166.667 mls/hr IV ONETIME ONE Stop: 06/19/17 19:59 Last Admin: 06/19/17 17:50 Dose: 166.667 mls/hr Vancomycin HCl 1 gm/ Sodium (Chloride) 250 mls @ 250 mls/hr IV Q12H [facility] Last Admin: 06/21/17 05:21 Dose: 250 mls/hr Norepinephrine Bitartrate (Norepinephr-0.9% Nacl 4 Mg/250) Confirm Administered Dose 250 mls @ as directed IV .STK-MED ONE Stop: 06/19/17 16:39 Last Admin: 06/19/17 17:46 Dose: Not Given Meropenem 1 gm/ Sodium (Chloride) 100 mls @ 200 mls/hr IV Q12H [facility] Meropenem 1 gm/ Sodium (Chloride) 50 mls @ 100 mls/hr IV Q12H [facility] Last Admin: 06/19/17 23:16 Dose: 100 mls/hr Magnesium Sulfate 2 gm/ Premix 50 mls @ 50 mls/hr IV ONETIME ONE Stop: 06/20/17 06:59 Last Admin: 06/20/17 06:27 Dose: 50 mls/hr Meropenem 1 gm/ Sodium (Chloride) 50 mls @ 100 mls/hr IV Q12H [facility] Last Admin: 06/20/17 23:00 Dose: 100 mls/hr Ketorolac Tromethamine (Toradol) 30 mg IVPUSH ONETIME ONE Stop: 06/18/17 19:20 Last Admin: 06/18/17 19:32 Dose: 30 mg Lisinopril (Prinivil) 5 mg PO DAILY [facility] Last Admin: 06/19/17 08:21 Dose: 5 mg Midazolam HCl (Versed 1 Mg/Ml) Confirm Administered Dose 2 mg .ROUTE .STK-MED ONE Stop: 06/19/17 17:10 Last Admin: 06/19/17 17:47 Dose: Not Given Morphine Sulfate (Morphine) 2 mg IVPUSH Q2H PRN PRN Reason: Pain (severe 7-10) Stop: 06/19/17 21:56 Sodium Polystyrene Sulfonate (Kayexalate) 15 gm PO Q8H [facility] Last Admin: 06/20/17 06:20 Dose: Not Given - Exam General: Alert, Oriented HEENT: Pupils Equal, EOMI Lungs: Clear to Auscultation, Normal Respiratory Effort, Decreased Breath Sounds Cardiovascular: Regular Rate, Regular Rhythm GI/Abdominal Exam: Normal Bowel Sounds, Soft Back Exam: Normal Inspection Extremities: Normal Inspection Skin: Warm, Dry, Intact Neurological: No New Focal Deficit Psy/Mental Status: Alert, Normal Affect, Normal Mood - Problem List Review Problem List Initiated/Reviewed/Updated: Yes - My Orders Last 24 Hours: My Active Orders 06/21/17 05:11 MAGNESIUM [CHEM] Routine 06/21/17 10:16 PICC Line Insertion [CR] Routine - Plan Plan:: The patient has been admitted as an inpatient secondary to his critical level potassium. I believe that the patient's source for his hyperkalemia is secondary to exogenous sources as he has been taking potassium supplements without Lasix. The patient will be gently fluid resuscitated because of his chronic kidney disease at 75 mL per hour. Also started the patient on Kayexalate at 15 g 4 times a day. I've ordered a repeat basic metabolic panel every 6 hours and I will also place patient on telemetry. The patient does show renal insufficiency and it's uncertain at this time if it is chronic or acute. I suspect it likely is acute and will gently fluid resuscitate and monitor his BUN/creatinine. The patient also be kept on regular diet as tolerated. He will also be kept on his medications as prescribed. I'll see the patient in follow- up in his overall treatment plan will be adjusted as conditions and information indicates. June 19, 2017: Patient is a 67-year-old gentleman who was admitted as an inpatient secondary to hyperkalemia. Patient was treated with Kayexalate and his potassium was monitored every 6 hours. The patient's latest potassium is mildly elevated at 5.6 mmol per liter. The patient will be continued with his Kayexalate. Patient also has a urinalysis does show evidence of pyuria with a urinary tract infection and bacteriuria. 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 I had a conversation with the pharmacist on duty and because of this history of ESB the patient was changed from Rocephin to meropenem. The patient's previous sensitivity for this bacteria did show sensitive to meropenem and ertapenem. 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 The patient's hyponatremia has also improved to 132 mmol per liter. I'll continue the patient on IV fluids with slow gentle resuscitation at 75 mL per hour. The patient will be continued on his diet as tolerated. I've encouraged physical therapy with ambulation for the patient. I suspect that once patient has completely normalized and he is doing better and is no other evidence of urinary tract infection that he might be appropriate for discharge back to [place]. The patient's treatment plan will be adjusted accordingly. June 20/2017 Urosepsis: lactate normal. continue meropenam and vancomycin. urine cultures pending for sensitivities to narrow antibiotics. blood cultures negative. Hyperkalemia: resolved K 4.5 today. DC kayexalate WILLI: improving cr today is 1.5 Hypotension 98/47 today: hold coreg x 1. wean levophed He needs Picc line placement by end of the week for 2 weeks of I.V antibiotics to [facility]. June 21/2017 Urosepsis: resolving. Urine culture: [place] pneumonia: continue meorpenam. LUIS vancomycin. Picc line placement today for IV abx when discharged to [facility] WILLI; resolved: anticipate discharge 1-2 days.
[2017-06-21] MEDS ORDERED: Magnesium Sulfate/Water 2 GM in Premix Bag 1 BAG IV ONE (10:32)
--- NOTE | 2017-06-21 17:04 | CR ---
EXAMINATION: Fluoro and ultrasound guided left-sided PICC line placement. HISTORY: UTI. TECHNIQUE/FINDINGS: After written informed consent was obtained from the patient using ultrasound a nd Fluoro guidance under aseptic conditions utilizing 1% lidocaine as local anesthesia left basilic vein was accessed and 5 [place] PICC catheter was deployed with its tip in the distal superior vena c denny. The catheter flushes and withdraws blood well. The catheter is flushed with the diluted hepari n. The catheter secured well. IMPRESSION: Successful Fluoro and ultrasound guided PICC line placement.
[2017-06-22] MEDS: Albuterol 0.083% 2.5 MG/3 ML Neb Soln NEB SCH ×3 (00:06→14:13)
[2017-06-22] MEDS: Sodium Chloride 0.9% 1,000 ML IV SCH (01:54)
[2017-06-22 05:45] LABS: CHLORIDE,CL 107 mmol/L (98-110); SODIUM,NA 135 mmol/L (136-146)
[2017-06-22] MEDS: Heparin Sodium 5,000 Units/ML Vial SUBCUT SCH ×2 (06:30→14:11)
[2017-06-22] MEDS ORDERED: Magnesium Sulfate/Water 4 GM in Premix Bag 1 BAG IV ONE (06:40)
[2017-06-22] MEDS: Folic Acid 1 MG Tab PO SCH (08:02)
[2017-06-22] MEDS: QUEtiapine 25 MG Tab PO SCH (08:02)
[2017-06-22] MEDS: Carvedilol 3.125 MG Tab PO SCH (08:02)
[2017-06-22] MEDS: Amiodarone 200 MG Tab PO SCH (08:02)
[2017-06-22 08:18] VITALS: BP 126/78
--- NOTE | 2017-06-22 10:03 | PCM.DCSUM1 ---
<Janett Rivas - Last Filed: 06/23/17 15:46> Discharge Summary - Hospital Course Free Text/Narrative:: he patient is a 67-year-old gentleman who presented to the emergency department from [facility] secondary to weakness and possible fall. The patient has been there secondary to previous injuries involving multiple rib fractures with plating, C. difficile colitis, multiple episodes of pneumonia and overall physical debility. The patient said that he does not like to take Lasix and the patient says that he has also been taking his potassium. The patient says that he has had some problems with standing and walking. He has been able to contract. Be it to his history and physical. The patient has been in his usual state of health up at the present time. Was noted while the patient was in the emergency department that his potassium was at a critical level of 7.3 mmol per liter. Patient was stabilized in the emergency department with calcium gluconate and his Lasix and potassium were stopped. The patient has no other complaints other than the weakness and some muscle pain. Patient is a 67-year- old gentleman who was admitted as an inpatient secondary to hyperkalemia. Patient was treated with Kayexalate and his potassium was monitored every 6 hours. The patient's latest potassium is mildly elevated at 5.6 mmol per liter. The patient will be continued with his Kayexalate. Patient also has a urinalysis does show evidence of pyuria with a urinary tract infection and bacteriuria. 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 I had a conversation with the pharmacist on duty and because of this history of ESB the patient was changed from Rocephin to meropenem. The patient's previous sensitivity for this bacteria did show sensitive to meropenem and ertapenem. 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 The patient's hyponatremia has also improved to 132 mmol per liter. I'll continue the patient on IV fluids with slow gentle resuscitation at 75 mL per hour. He had episode hypotension and transferred to ICU for central line and arterial line placement where he required levophed. His urine culture grew klebesiella pneumonia sensitive to meropenam. once he improved, picc line placed. He was discharged to [facility] with I.V meropenam q 8 hrs x 2 weeks. He is to stop taking potasium supplements if he is not taking lasix. PT/OT for strengthening and ambulation. - Discharge Data Discharge Date: 06/22/17 Discharge Disposition: DC/Tfer to SNF 03 Condition: Good - Patient Summary/Data Operative Procedure(s) Performed: central line placement to L subclavian v. Consults: Consultations 06/19/17 16:30 Consult to Physician [CONS] Urgent - Patient Instructions Diet: Regular Diet as Tolerated, No Alcoholic Beverages Activity: As Tolerated Driving: Do Not Drive Showering/Bathing: May Shower Notify Provider of: Fever, Increased Pain, Swelling and Redness, Drainage, Nausea and/or Vomiting - Discharge Plan Prescriptions/Med Rec: Meropenem [Merrem] 1 gm IV Q8H #33 sdv Home Medications: Home Meds Amiodarone HCl [Pacerone] 100 mg PO BID 04/21/17 [History] Fluticasone/Salmeterol [Advair Diskus 250-50] 1 inh INH DAILY 04/21/17 [History] Aspirin [Ecotrin] 81 mg PO DAILY 05/04/17 [History] Acetaminophen [Tylenol Extra Strength] 1,000 mg PO BID 06/18/17 [History] Albuterol Sulfate 2.5 mg NEB Q6H 06/18/17 [History] Bisacodyl [Biscolax] 10 mg RC Q24H PRN 06/18/17 [History] Carvedilol 3.125 mg PO BIDMEALS 06/18/17 [History] Folic Acid 1 mg PO DAILY 06/18/17 [History] Furosemide 40 mg PO DAILY 06/18/17 [History] Lisinopril 5 mg PO DAILY 06/18/17 [History] Loperamide HCl [Imodium A-D] 2 mg PO QID PRN 06/18/17 [History] Magnesium Hydroxide [Milk of Magnesia] 30 ml PO Q24H PRN 06/18/17 [History] Magnesium Oxide 400 mg PO BIDMEALS 06/18/17 [History] Potassium Chloride 20 meq PO BID 06/18/17 [History] QUEtiapine [SEROquel] 25 mg PO BID 06/18/17 [History] Saccharomyces Boulardii [Digestive Probiotic] 250 mg PO BID 06/18/17 [History] Spironolactone [Aldactone] 25 mg PO DAILY 06/18/17 [History] Thiamine HCl 100 mg PO DAILY 06/18/17 [History] Meropenem [Merrem] 1 gm IV Q8H #33 sdv 06/22/17 [Rx] Patient Handouts: Acute Kidney Injury, Hyponatremia, [id number], Meropenem injection, Hyperkalemia, Iryx-de-[id number] Forms: ED Department Discharge Referrals: PCP,None [Primary Care Provider] - - General Info Date of Service: 06/22/17 Functional Status: Reports: Pain Controlled, Tolerating Diet - Review of Systems General: Reports: No Symptoms HEENT: Reports: No Symptoms Pulmonary: Reports: No Symptoms Cardiovascular: Reports: No Symptoms Gastrointestinal: Reports: No Symptoms Genitourinary: Reports: No Symptoms Musculoskeletal: Reports: No Symptoms Skin: Reports: No Symptoms Neurological: Reports: No Symptoms Psychiatric: Reports: No Symptoms - Patient Data Vitals - Most Recent: Last Vital Signs Temp 98.4 F 06/22/17 08:00 Pulse 84 06/22/17 08:02 Resp 18 06/22/17 08:00 BP 126/78 06/22/17 08:02 Pulse Ox 94 L 06/22/17 08:00 Weight - Most Recent: 78.7 kg I&O - Last 24 hours: Intake & Output 06/21/17 06/22/17 06/22/17 22:59 06:59 14:59 Intake Total 1650 1650 Output Total 1100 1800 Balance 550 -150 Lab Results - Last 24 hrs: Laboratory Results - last 24 hr 06/22/17 06/22/17 06/22/17 Range/Units 05:10 05:10 05:10 WBC 7.61 (4.0-11.0) K/uL RBC 3.69 L (4.50-5.90) M/uL Hgb 10.1 L (13.0-17.0) g/dL Hct 31.4 L (38.0-50.0) % MCV 85.1 (80.0-98.0) fL MCH 27.4 (27.0-32.0) pg MCHC 32.2 (31.0-37.0) g/dL RDW Std Deviation 53.4 (28.0-62.0) fl RDW Coeff of Jeannie 17 H (11.0-15.0) % Plt Count 266 (150-400) K/uL MPV 9.40 (7.40-12.00) fL Add Manual Diff YES Neutrophils % (Manual) 76 (48.0-80.0) % Band Neutrophils % 2 % Lymphocytes % (Manual) 9 L (16.0-40.0) % Monocytes % (Manual) 8 (0.0-15.0) % Eosinophils % (Manual) 5 (0.0-7.0) % Nucleated RBC % 0.0 /100WBC Absolute Seg Neuts 5.8 Band Neutrophils # 0.2 Lymphocytes # (Manual) 0.7 Monocytes # (Manual) 0.6 Eosinophils # (Manual) 0.4 Nucleated RBCs # 0 K/uL Sodium 135 L (136-146) mmol/L Potassium 4.6 (3.5-5.1) mmol/L Chloride 107 (98-110) mmol/L Carbon Dioxide 23 (21-31) mmol/L BUN 12 (6.0-23.0) mg/dL Creatinine 0.8 (0.6-1.5) mg/dL Est Cr Clr Drug Dosing 93.19 mL/min Estimated GFR (MDRD) > 60.0 ml/min Glucose 79 (60-110) mg/dL Calcium 7.8 L (8.8-10.8) mg/dL Magnesium 1.1 L (1.5-2.3) mEq/L AGNES Results - Last 24 hrs: Microbiology 06/19/17 01:08 Urine Culture - Final Urine, Voided Klebsiella Pneumoniae Normal Urogenital Ely Med Orders - Current: Current Medications Acetaminophen (Tylenol) 650 mg PO Q4H PRN PRN Reason: Pain (Mild 1-3)/fever Albuterol (Proventil Neb Soln) 2.5 mg NEB Q6HRRT [facility] Last Admin: 06/22/17 07:14 Dose: 2.5 mg Albuterol (Proventil Neb Soln) 2.5 mg NEB Q12HR PRN PRN Reason: Shortness of Breath Amiodarone HCl (Cordarone) 100 mg PO BID [facility] Last Admin: 06/22/17 08:02 Dose: 100 mg Carvedilol (Coreg) 3.125 mg PO BIDMEALS [facility] Last Admin: 06/22/17 08:02 Dose: 3.125 mg Docusate Sodium (Colace) 100 mg PO BID PRN PRN Reason: Constipation Folic Acid (Folic Acid) 1 mg PO DAILY [facility] Last Admin: 06/22/17 08:02 Dose: 1 mg Heparin Sodium (Porcine) (Heparin Sodium) 5,000 units SUBCUT Q8H [facility] Last Admin: 06/22/17 06:30 Dose: 5,000 units Sodium Chloride (Normal Saline) 1,000 mls @ 125 mls/hr IV ASDIRECTED [facility] Last Admin: 06/22/17 01:54 Dose: 125 mls/hr Meropenem 1 gm/ Sodium (Chloride) 50 mls @ 100 mls/hr IV Q8H [facility] Last Admin: 06/22/17 02:04 Dose: 100 mls/hr Ondansetron HCl (Zofran Odt) 4 mg PO Q6H PRN PRN Reason: nausea, able to take PO Oxycodone HCl (Oxycodone) 5 mg PO Q4H PRN PRN Reason: Pain (moderate 4-6) Last Admin: 06/19/17 08:58 Dose: 5 mg Quetiapine Fumarate (Seroquel) 25 mg PO BID [facility] Last Admin: 06/22/17 08:02 Dose: 25 mg Fluticasone/Salmeterol (Advair Diskus 250-50) 1 puff INH DAILY [facility] Last Admin: 06/21/17 08:54 Dose: 1 inhalation Temazepam (Restoril) 15 mg PO BEDTIME PRN PRN Reason: Sleep Discontinued Medications Albuterol (Proventil Neb Soln) 2.5 mg NEB ONETIME ONE Stop: 06/18/17 20:45 Last Admin: 06/18/17 20:54 Dose: 2.5 mg Albuterol (Proventil Neb Soln) 5 mg NEB Q12HR PRN PRN Reason: Shortness of Breath Albuterol (Proventil Neb Soln) 5 mg NEB Q6HRRT [facility] Last Admin: 06/19/17 02:15 Dose: Not Given Calcium Gluconate (Calcium Gluconate) 1 gm IVPUSH ONETIME ONE Stop: 06/18/17 20:38 Last Admin: 06/18/17 20:48 Dose: 1 gm Sodium Chloride (Normal Saline) 1,000 mls @ 250 mls/hr IV STAT ONE Stop: 06/18/17 23:10 Last Admin: 06/18/17 19:25 Dose: 250 mls/hr Lactated Ringer's (Ringers, Lactated) 1,000 mls @ 150 mls/hr IV ASDIRECTED [facility] Sodium Chloride (Normal Saline) 1,000 mls @ 100 mls/hr IV ASDIRECTED [facility] Last Admin: 06/19/17 05:48 Dose: 75 mls/hr Ceftriaxone Sodium/Dextrose 1 (gm/ Premix) 50 mls @ 100 mls/hr IV Q24H [facility] Last Admin: 06/19/17 08:47 Dose: 100 mls/hr Meropenem 1 gm/ Sodium (Chloride) 50 mls @ 100 mls/hr IV Q12H [facility] Last Admin: 06/19/17 11:03 Dose: 100 mls/hr Sodium Chloride (Normal Saline) 1,000 mls @ 100 mls/hr IV ASDIRECTED [facility] Last Admin: 06/19/17 13:47 Dose: 100 mls/hr Norepinephrine Bitartrate 4 mg (/ Premix) 250 mls @ 7.5 mls/hr IV TITRATE [facility]SE; 2 MCG/MIN PRN Reason: Protocol Last Titration: 06/21/17 00:00 Dose: 0 mcg/min, 0 mls/hr Vancomycin HCl 1,500 mg/ (Sodium Chloride) 500 mls @ 166.667 mls/hr IV ONETIME ONE Stop: 06/19/17 19:59 Last Admin: 06/19/17 17:50 Dose: 166.667 mls/hr Vancomycin HCl 1 gm/ Sodium (Chloride) 250 mls @ 250 mls/hr IV Q12H [facility] Last Admin: 06/21/17 05:21 Dose: 250 mls/hr Norepinephrine Bitartrate (Norepinephr-0.9% Nacl 4 Mg/250) Confirm Administered Dose 250 mls @ as directed IV .STK-MED ONE Stop: 06/19/17 16:39 Last Admin: 06/19/17 17:46 Dose: Not Given Meropenem 1 gm/ Sodium (Chloride) 100 mls @ 200 mls/hr IV Q12H [facility] Meropenem 1 gm/ Sodium (Chloride) 50 mls @ 100 mls/hr IV Q12H [facility] Last Admin: 06/19/17 23:16 Dose: 100 mls/hr Magnesium Sulfate 2 gm/ Premix 50 mls @ 50 mls/hr IV ONETIME ONE Stop: 06/20/17 06:59 Last Admin: 06/20/17 06:27 Dose: 50 mls/hr Meropenem 1 gm/ Sodium (Chloride) 50 mls @ 100 mls/hr IV Q12H [facility] Last Admin: 06/20/17 23:00 Dose: 100 mls/hr Magnesium Sulfate 2 gm/ Premix 50 mls @ 50 mls/hr IV ONETIME ONE Stop: 06/21/17 11:31 Last Admin: 06/21/17 10:59 Dose: 50 mls/hr Magnesium Sulfate 4 gm/ Premix 100 mls @ 50 mls/hr IV ONETIME ONE Stop: 06/22/17 08:39 Last Admin: 06/22/17 07:37 Dose: 50 mls/hr Ketorolac Tromethamine (Toradol) 30 mg IVPUSH ONETIME ONE Stop: 06/18/17 19:20 Last Admin: 06/18/17 19:32 Dose: 30 mg Lisinopril (Prinivil) 5 mg PO DAILY [facility] Last Admin: 06/19/17 08:21 Dose: 5 mg Midazolam HCl (Versed 1 Mg/Ml) Confirm Administered Dose 2 mg .ROUTE .STK-MED ONE Stop: 06/19/17 17:10 Last Admin: 06/19/17 17:47 Dose: Not Given Morphine Sulfate (Morphine) 2 mg IVPUSH Q2H PRN PRN Reason: Pain (severe 7-10) Stop: 06/19/17 21:56 Sodium Polystyrene Sulfonate (Kayexalate) 15 gm PO Q8H [facility] Last Admin: 06/20/17 06:20 Dose: Not Given - Exam General: Reports: Alert, Oriented HEENT: Reports: Pupils Equal, EOMI Neck: Reports: Supple, Trachea Midline Lungs: Reports: Clear to Auscultation, Normal Respiratory Effort Cardiovascular: Reports: Regular Rate, Regular Rhythm GI/Abdominal Exam: Normal Bowel Sounds, Soft Rectal (Males) Exam: Normal Exam Back Exam: Reports: Normal Inspection, Full Range of Motion Extremities: Normal Inspection, Normal Range of Motion Skin: Reports: Warm, Dry, Intact Neurological: Reports: No New Focal Deficit Psy/Mental Status: Reports: Alert, Normal Affect, Normal Mood *Q Meaningful Use (DIS) - VTE *Q VTE Criteria *Q: VTE Mechanical Contraindications *Q: At Risk for Falls - Stroke *Q Stroke Criteria *Q: - AMI *Q AMI Criteria *Q: <Roger Corey - Last Filed: 06/27/17 13:06> Discharge Summary - Patient Summary/Data Consults: Consultations 06/19/17 16:30 Consult to Physician [CONS] Urgent - Patient Data Vitals - Most Recent: Last Vital Signs Temp 36.9 C 06/22/17 08:00 Pulse 84 06/22/17 08:02 Resp 18 06/22/17 08:00 BP 126/78 06/22/17 08:02 Pulse Ox 94 L 06/22/17 08:00 Med Orders - Current: Current Medications Discontinued Medications Acetaminophen (Tylenol) 650 mg PO Q4H PRN PRN Reason: Pain (Mild 1-3)/fever Albuterol (Proventil Neb Soln) 2.5 mg NEB ONETIME ONE Stop: 06/18/17 20:45 Last Admin: 06/18/17 20:54 Dose: 2.5 mg Albuterol (Proventil Neb Soln) 5 mg NEB Q12HR PRN PRN Reason: Shortness of Breath Albuterol (Proventil Neb Soln) 5 mg NEB Q6HRRT [facility] Last Admin: 06/19/17 02:15 Dose: Not Given Albuterol (Proventil Neb Soln) 2.5 mg NEB Q6HRRT [facility] Last Admin: 06/22/17 14:13 Dose: Not Given Albuterol (Proventil Neb Soln) 2.5 mg NEB Q12HR PRN PRN Reason: Shortness of Breath Amiodarone HCl (Cordarone) 100 mg PO BID [facility] Last Admin: 06/22/17 08:02 Dose: 100 mg Calcium Gluconate (Calcium Gluconate) 1 gm IVPUSH ONETIME ONE Stop: 06/18/17 20:38 Last Admin: 06/18/17 20:48 Dose: 1 gm [facility] Last Admin: 06/22/17 08:02 Dose: 3.125 mg Docusate Sodium (Colace) 100 mg PO BID PRN PRN Reason: Constipation Folic Acid (Folic Acid) 1 mg PO DAILY [facility] Last Admin: 06/22/17 08:02 Dose: 1 mg Heparin Sodium (Porcine) (Heparin Sodium) 5,000 units SUBCUT Q8H [facility] Last Admin: 06/22/17 14:11 Dose: Not Given Sodium Chloride (Normal Saline) 1,000 mls @ 250 mls/hr IV STAT ONE Stop: 06/18/17 23:10 Last Admin: 06/18/17 19:25 Dose: 250 mls/hr Lactated Ringer's (Ringers, Lactated) 1,000 mls @ 150 mls/hr IV ASDIRECTED [facility] Sodium Chloride (Normal Saline) 1,000 mls @ 100 mls/hr IV ASDIRECTED [facility] Last Admin: 06/19/17 05:48 Dose: 75 mls/hr Ceftriaxone Sodium/Dextrose 1 (gm/ Premix) 50 mls @ 100 mls/hr IV Q24H [facility] Last Admin: 06/19/17 08:47 Dose: 100 mls/hr Meropenem 1 gm/ Sodium (Chloride) 50 mls @ 100 mls/hr IV Q12H [facility] Last Admin: 06/19/17 11:03 Dose: 100 mls/hr Sodium Chloride (Normal Saline) 1,000 mls @ 100 mls/hr IV ASDIRECTED [facility] Last Admin: 06/19/17 13:47 Dose: 100 mls/hr Sodium Chloride (Normal Saline) 1,000 mls @ 125 mls/hr IV ASDIRECTED [facility] Last Admin: 06/22/17 01:54 Dose: 125 mls/hr Norepinephrine Bitartrate 4 mg (/ Premix) 250 mls @ 7.5 mls/hr IV TITRATE [facility]; 2 MCG/MIN PRN Reason: Protocol Last Titration: 06/21/17 00:00 Dose: 0 mcg/min, 0 mls/hr Vancomycin HCl 1,500 mg/ (Sodium Chloride) 500 mls @ 166.667 mls/hr IV ONETIME ONE Stop: 06/19/17 19:59 Last Admin: 06/19/17 17:50 Dose: 166.667 mls/hr Vancomycin HCl 1 gm/ Sodium (Chloride) 250 mls @ 250 mls/hr IV Q12H [facility] Last Admin: 06/21/17 05:21 Dose: 250 mls/hr Norepinephrine Bitartrate (Norepinephr-0.9% Nacl 4 Mg/250) Confirm Administered Dose 250 mls @ as directed IV .STK-MED ONE Stop: 06/19/17 16:39 Last Admin: 06/19/17 17:46 Dose: Not Given Meropenem 1 gm/ Sodium (Chloride) 100 mls @ 200 mls/hr IV Q12H [facility] Meropenem 1 gm/ Sodium (Chloride) 50 mls @ 100 mls/hr IV Q12H [facility] Last Admin: 06/19/17 23:16 Dose: 100 mls/hr Magnesium Sulfate 2 gm/ Premix 50 mls @ 50 mls/hr IV ONETIME ONE Stop: 06/20/17 06:59 Last Admin: 06/20/17 06:27 Dose: 50 mls/hr Meropenem 1 gm/ Sodium (Chloride) 50 mls @ 100 mls/hr IV Q12H [facility] Last Admin: 06/20/17 23:00 Dose: 100 mls/hr Meropenem 1 gm/ Sodium (Chloride) 50 mls @ 100 mls/hr IV Q8H [facility] Last Admin: 06/22/17 10:21 Dose: 100 mls/hr Magnesium Sulfate 2 gm/ Premix 50 mls @ 50 mls/hr IV ONETIME ONE Stop: 06/21/17 11:31 Last Admin: 06/21/17 10:59 Dose: 50 mls/hr Magnesium Sulfate 4 gm/ Premix 100 mls @ 50 mls/hr IV ONETIME ONE Stop: 06/22/17 08:39 Last Admin: 06/22/17 07:37 Dose: 50 mls/hr Ketorolac Tromethamine (Toradol) 30 mg IVPUSH ONETIME ONE Stop: 06/18/17 19:20 Last Admin: 06/18/17 19:32 Dose: 30 mg Lisinopril (Prinivil) 5 mg PO DAILY [facility] Last Admin: 06/19/17 08:21 Dose: 5 mg Midazolam HCl (Versed 1 Mg/Ml) Confirm Administered Dose 2 mg .ROUTE .STK-MED ONE Stop: 06/19/17 17:10 Last Admin: 06/19/17 17:47 Dose: Not Given Morphine Sulfate (Morphine) 2 mg IVPUSH Q2H PRN PRN Reason: Pain (severe 7-10) Stop: 06/19/17 21:56 Ondansetron HCl (Zofran Odt) 4 mg PO Q6H PRN PRN Reason: nausea, able to take PO Oxycodone HCl (Oxycodone) 5 mg PO Q4H PRN PRN Reason: Pain (moderate 4-6) Last Admin: 06/19/17 08:58 Dose: 5 mg Quetiapine Fumarate (Seroquel) 25 mg PO BID [facility] Last Admin: 06/22/17 08:02 Dose: 25 mg Fluticasone/Salmeterol (Advair Diskus 250-50) 1 puff INH DAILY [facility] Last Admin: 06/22/17 11:17 Dose: 1 inhalation Sodium Polystyrene Sulfonate (Kayexalate) 15 gm PO Q8H [facility] Last Admin: 06/20/17 06:20 Dose: Not Given Temazepam (Restoril) 15 mg PO BEDTIME PRN PRN Reason: Sleep *Q Meaningful Use (DIS) - VTE *Q VTE Criteria *Q: - Stroke *Q Stroke Criteria *Q: - AMI *Q AMI Criteria *Q: - Free Text/Narrative Note: I have examined the patient. I have discussed findings and treatment plan with resident. I agree with the assessment and plan outline in the following resident's note.
[2017-06-22] MEDS: Fluticasone/Salmeterol 250-50 MCG Inhalation Powder 14/Diskus INH SCH (11:17)
== END 2017-06-22 14:12 | DRG 641 ==
LOC: MW.ED 18:37 → MW.MS 21:12 → MW.ICU 06-19 16:32
PROVIDERS: ADMIT Internal Medicine; ATTEND Internal Medicine
PROC: 03HB33Z Insertion of Infusion Device into Right Radial Artery, Percutaneous Approach (ICD-10-PCS; principal; 2017-06-19)
PROC: 05H633Z Insertion of Infusion Device into Left Subclavian Vein, Percutaneous Approach (ICD-10-PCS; 2017-06-19)
DX: E87.5 Hyperkalemia (principal); N39.0 Urinary tract infection, site not specified; N17.9 Acute kidney failure, unspecified; E86.0 Dehydration; E87.1 Hypo-osmolality and hyponatremia; R53.1 Weakness; B96.1 Klebsiella pneumoniae [K. pneumoniae] as the cause of diseases classified elsewhere; E83.42 Hypomagnesemia; E78.00 Pure hypercholesterolemia, unspecified; I10 Essential (primary) hypertension; J44.9 Chronic obstructive pulmonary disease, unspecified; Z87.891 Personal history of nicotine dependence; Z79.899 Other long term (current) drug therapy
CPT/HCPCS: 36415; 71020; 80053; 82550; 82553; 82962; 83605; 83735; 84100; 84443; 84484; 85025; 87040 ×2; 93005; 94664; 96361; 96374; 96375; 99285; J0610; J1885; J7040; 36569; 36620; 51703; 71010; 71010-26; 76937; 76937-26; 77001; 77001-26; 80048; 81001; 87086; 87088; 87186; 94640; A9270-GY; J0696; J1644; J2185; J3370; J3475; J7030; J7050

== ENCOUNTER 2017-07-21 12:49 | Inpatient (IN) | payer MEDICARE, OTHER ==
[2017-07-21] MEDS ORDERED: Sodium Chloride 0.9% 1,000 ML IV ONE ×2 (12:59→20:40)
[2017-07-21] MEDS ORDERED: Sodium Chloride 0.9% 2.5 ML Syringe FLUSH PRN (13:00)
[2017-07-21] MEDS ORDERED: Sodium Chloride 0.9% 10 ML Syringe FLUSH PRN (13:00)
[2017-07-21] MEDS ORDERED: Piperacillin/Tazobactam 4.5 GM in Sodium Chloride 0.9% 100 ML IV ONE (13:00)
--- NOTE | 2017-07-21 13:07 | EDM.PDOC ---
ED HPI GENERAL MEDICAL PROBLEM - General Chief Complaint: General Stated Complaint: HE'S SICK Time Seen by Provider: 07/21/17 12:53 - History of Present Illness INITIAL COMMENTS - FREE TEXT/NARRATIVE: HISTORY AND PHYSICAL: History of present illness: Patient 67-year-old white male with an extensive past medical history is been in and out of the hospital for multiple medical and surgical problems who was also in and out of penitentiary who presents with a concern of increasing generalized weakness he's also had chills at home he had recent outpatient labs that had a white count of 29,000. He denies chest pain shortness of breath denies abdominal pain he has had a history of C. difficile and he does have chronic diarrhea he also has history of chronic back pain Review of systems: As per history of present illness and below otherwise all systems reviewed and negative. Past medical history: As per history of present illness and as reviewed below otherwise noncontributory. Surgical history: As per history of present illness and as reviewed below otherwise noncontributory. Social history: No reported history of drug or alcohol abuse. Family history: As per history of present illness and as reviewed below otherwise noncontributory. Physical exam: HEENT: Atraumatic, normocephalic, pupils reactive, negative for conjunctival pallor or scleral icterus, mucous membranes moist, throat clear, neck supple, nontender, trachea midline. Lungs: Clear to auscultation, breath sounds equal bilaterally, chest nontender. Heart: S1S2, regular, negative for clicks, rubs, or JVD. Abdomen: Soft, nondistended, nontender. Negative for masses or hepatosplenomegaly. Negative for costovertebral tenderness. Pelvis: Stable nontender. Genitourinary: Deferred. Rectal: Deferred. Extremities: Atraumatic, negative for cords or calf pain. Neurovascular unremarkable. Neuro: Awake, alert, follows commands moves all extremities limited grossly nonfocal exam Diagnostics: CBC CMP pneumonia amylase lipase lactic acid blood culture 2 troponin PT/INR CT brain chest x-ray CT chest abdomen and pelvis abdomen and pelvis with thoracic and lumbar reconstruction Therapeutics: Normal saline 1 L bolus Arias 4.475 g IV vancomycin 1 g IV Impression: #1 generalized weakness #2 rule out sepsis Definitive disposition and diagnosis as appropriate pending reevaluation and review of above. Lower Back Pain Score (Numeric/FACES): 4 - Related Data Allergies Allergy/AdvReac Type Severity Reaction Status Date / Time No Known Allergies Allergy Verified 07/21/17 13:00 Home Meds: Home Meds Fluticasone/Salmeterol [Advair Diskus 250-50] 1 puff INH BID 04/21/17 [History] Aspirin [Ecotrin] 81 mg PO DAILY 05/04/17 [History] Albuterol Sulfate 2.5 mg NEB BID PRN 06/18/17 [History] Carvedilol 3.125 mg PO BIDMEALS 06/18/17 [History] Furosemide 20 mg PO DAILY 06/18/17 [History] Loperamide HCl [Imodium A-D] 2 mg PO DAILY 06/18/17 [History] QUEtiapine [SEROquel] 25 mg PO BEDTIME 06/18/17 [History] Saccharomyces Boulardii [Digestive Probiotic] 500 mg PO DAILY 06/18/17 [History] Acetaminophen [Tylenol] 325 mg PO ASDIRECTED PRN 07/21/17 [History] Ibuprofen 600 mg PO ASDIRECTED PRN 07/21/17 [History] buPROPion [Wellbutrin] 0 mg PO DAILY 07/21/17 [History] Past Medical History - Past Health History Medical/Surgical History: Denies Medical/Surgical History HEENT History: Reports: Cataract, Impaired Vision Cardiovascular History: Reports: High Cholesterol, Hypertension Other Cardiovascular History: hypokalemia; he had post operative atrial fibrillation. He was placed on amiodarone earlier this year with intent being to use it temporarily as he has since remained in sinus rhythm. Respiratory History: Reports: COPD, Pneumothorax, SOB Other Respiratory History: flail chest. hemothorax Gastrointestinal History: Reports: None Genitourinary History: Reports: Other (See Below) Other Genitourinary History: urosepsis Musculoskeletal History: Reports: None Neurological History: Reports: Head Trauma, Neuropathy, Peripheral Psychiatric History: Reports: Other (See Below) Other Psychiatric History: alcohol dependence with withdrawl delerium Endocrine/Metabolic History: Reports: Obesity/BMI 30+ Hematologic History: Reports: Blood Transfusion(s) Immunologic History: Reports: None Oncologic (Cancer) History: Reports: None Dermatologic History: Reports: None - Infectious Disease History Infectious Disease History: Reports: Chicken Pox - Past Surgical History Head Surgeries/Procedures: Reports: None HEENT Surgical History: Reports: None Cardiovascular Surgical History: Reports: None Respiratory Surgical History: Reports: None GI Surgical History: Reports: None Male Surgical History: Reports: None Endocrine Surgical History: Reports: None Neurological Surgical History: Reports: None Musculoskeletal Surgical History: Reports: Other (See Below) Other Musculoskeletal Surgeries/Procedures:: multiple rib fractures Dermatological Surgical History: Reports: None Social & Family History - Family History Family Medical History: Noncontributory - Tobacco Use Smoking Status *Q: Never Smoker Used Tobacco, but Quit: No Month Tobacco Last Used: 1969 Second Hand Smoke Exposure: No - Caffeine Use Caffeine Use: Reports: None - Recreational Drug Use Recreational Drug Use: No ED ROS GENERAL - Review of Systems Review Of Systems: ROS reveals no pertinent complaints other than HPI. ED EXAM, GENERAL - Physical Exam Exam: See Below (See dictation) Course - Vital Signs Last Recorded V/S: Last Vital Signs Temp 35.9 C 07/21/17 12:53 Pulse 67 07/21/17 12:53 Resp 12 07/21/17 15:45 BP 85/54 L 07/21/17 15:45 Pulse Ox 100 07/21/17 15:45 - Orders/Labs/Meds Orders: Active Orders 24 hr Category Date Time Status Cardiac Monitoring [RC] . DIRECTED Care 07/21/17 12:58 Active EKG Documentation Completion [RC] STAT Care 07/21/17 12:58 Active Oxygen Therapy, ED [RC] ASDIRECTED Care 07/21/17 12:58 Active Pulse Oximetry [RC] ASDIRECTED Care 07/21/17 12:58 Active CDIFF TOX A+B [OP] Stat Lab 07/21/17 13:13 Uncollected CULTURE BLOOD [BC] Stat Lab 07/21/17 13:23 Received CULTURE BLOOD [BC] Stat Lab 07/21/17 13:34 Received CULTURE STOOL + CAMPY+SHIGATOX [RM] Stat Lab 07/21/17 13:19 Uncollected DRUG SCREEN, URINE [URCHEM] Stat Lab 07/21/17 12:58 Uncollected UA W/MICROSCOPIC [URIN] Stat Lab 07/21/17 12:58 Uncollected Meropenem [Merrem] 1 gm Med 07/21/17 16:20 Active Sodium Chloride 0.9% [Normal Saline] 100 ml IV ONETIME Sodium Chloride 0.9% [Normal Saline] 1,000 ml Med 07/21/17 15:38 Active IV NOW Sodium Chloride 0.9% [Saline Flush] Med 07/21/17 13:00 Active 10 ml FLUSH ASDIRECTED PRN Sodium Chloride 0.9% [Saline Flush] Med 07/21/17 13:00 Active 2.5 ml FLUSH ASDIRECTED PRN Blood Culture x2 Reflex Set [OM.PC] Stat Ot 07/21/17 12:58 Ordered Saline Lock Insert [OM.PC] Stat Ot 07/21/17 12:58 Ordered Medication Orders Sodium Chloride (Normal Saline) 1,000 mls @ 125 mls/hr IV NOW STA Stop: 07/21/17 23:37 Last Admin: 07/21/17 15:38 Dose: 125 mls/hr Meropenem 1 gm/ Sodium (Chloride) 100 mls @ 200 mls/hr IV ONETIME ONE Stop: 07/21/17 16:49 Sodium Chloride (Saline Flush) 10 ml FLUSH ASDIRECTED PRN PRN Reason: Keep Vein Open Sodium Chloride (Saline Flush) 2.5 ml FLUSH ASDIRECTED PRN PRN Reason: Keep Vein Open Labs: Laboratory Tests 07/21/17 07/21/17 07/21/17 Range/Units 13:23 13:23 13:23 WBC (4.0-11.0) K/uL RBC (4.50-5.90) M/uL Hgb (13.0-17.0) g/dL Hct (38.0-50.0) % MCV (80.0-98.0) fL MCH (27.0-32.0) pg MCHC (31.0-37.0) g/dL RDW Std Deviation (28.0-62.0) fl RDW Coeff of Jeannie (11.0-15.0) % Plt Count (150-400) K/uL MPV (7.40-12.00) fL Add Manual Diff Neutrophils % (Manual) (48.0-80.0) % Band Neutrophils % % Lymphocytes % (Manual) (16.0-40.0) % Monocytes % (Manual) (0.0-15.0) % Metamyelocytes % % Nucleated RBC % /100WBC Absolute Seg Neuts Band Neutrophils # Lymphocytes # (Manual) Monocytes # (Manual) Absolute Metamyelocyte Nucleated RBCs # K/uL INR 1.10 (0.86-1.11) Lactate 1.4 (0.20-2.00) mmol/L Sodium 127 L (136-146) mmol/L Potassium 5.2 H (3.5-5.1) mmol/L Chloride 91 L (98-110) mmol/L Carbon Dioxide 24 (21-31) mmol/L BUN 35 H (6.0-23.0) mg/dL Creatinine 2.0 H (0.6-1.5) mg/dL Est Cr Clr Drug Dosing 35.99 mL/min Estimated GFR (MDRD) 33.3 ml/min Glucose 112 H (60-110) mg/dL Calcium 9.2 (8.8-10.8) mg/dL Total Bilirubin 0.6 (0.1-1.5) mg/dL AST 92 H (5-40) IU/L ALT 24 (8-54) IU/L Alkaline Phosphatase 184 H (40-150) Ammonia (14-68) UG/DL Troponin I (0.0-0.29) NG/ML B-Natriuretic Peptide (<100) PG/ML Total Protein 7.2 (6.0-8.0) g/dL Albumin 2.8 L (3.4-4.8) g/dL Globulin 4.4 H (2.0-3.5) g/dL Albumin/Globulin Ratio 0.6 L (1.3-2.8) Amylase 22 (10-90) U/L TSH 3rd Generation 1.00 (0.47-5.0) uIU/mL Ethyl Alcohol < 10.0 mg/dL 07/21/17 07/21/17 07/21/17 Range/Units 13:23 13:23 13:34 WBC 28.87 H (4.0-11.0) K/uL RBC 4.06 L (4.50-5.90) M/uL Hgb 11.6 L (13.0-17.0) g/dL Hct 34.2 L (38.0-50.0) % MCV 84.2 (80.0-98.0) fL MCH 28.6 (27.0-32.0) pg MCHC 33.9 (31.0-37.0) g/dL RDW Std Deviation 49.6 (28.0-62.0) fl RDW Coeff of Jeannie 16 H (11.0-15.0) % Plt Count 338 (150-400) K/uL MPV 9.10 (7.40-12.00) fL Add Manual Diff YES Neutrophils % (Manual) 88 H (48.0-80.0) % Band Neutrophils % 2 % Lymphocytes % (Manual) 5 L (16.0-40.0) % Monocytes % (Manual) 4 (0.0-15.0) % Metamyelocytes % 1 % Nucleated RBC % 0.0 /100WBC Absolute Seg Neuts 25.4 Band Neutrophils # 0.6 Lymphocytes # (Manual) 1.4 Monocytes # (Manual) 1.2 Absolute Metamyelocyte 0.3 Nucleated RBCs # 0 K/uL INR (0.86-1.11) Lactate (0.20-2.00) mmol/L Sodium (136-146) mmol/L Potassium (3.5-5.1) mmol/L Chloride (98-110) mmol/L Carbon Dioxide (21-31) mmol/L BUN (6.0-23.0) mg/dL Creatinine (0.6-1.5) mg/dL Est Cr Clr Drug Dosing mL/min Estimated GFR (MDRD) ml/min Glucose (60-110) mg/dL Calcium (8.8-10.8) mg/dL Total Bilirubin (0.1-1.5) mg/dL AST (5-40) IU/L ALT (8-54) IU/L Alkaline Phosphatase (40-150) Ammonia 44 (14-68) UG/DL Troponin I < 0.10 (0.0-0.29) NG/ML B-Natriuretic Peptide (<100) PG/ML Total Protein (6.0-8.0) g/dL Albumin (3.4-4.8) g/dL Globulin (2.0-3.5) g/dL Albumin/Globulin Ratio (1.3-2.8) Amylase (10-90) U/L TSH 3rd Generation (0.47-5.0) uIU/mL Ethyl Alcohol mg/dL 07/21/17 Range/Units 13:34 WBC (4.0-11.0) K/uL RBC (4.50-5.90) M/uL Hgb (13.0-17.0) g/dL Hct (38.0-50.0) % MCV (80.0-98.0) fL MCH (27.0-32.0) pg MCHC (31.0-37.0) g/dL RDW Std Deviation (28.0-62.0) fl RDW Coeff of Jeannie (11.0-15.0) % Plt Count (150-400) K/uL MPV (7.40-12.00) fL Add Manual Diff Neutrophils % (Manual) (48.0-80.0) % Band Neutrophils % % Lymphocytes % (Manual) (16.0-40.0) % Monocytes % (Manual) (0.0-15.0) % Metamyelocytes % % Nucleated RBC % /100WBC Absolute Seg Neuts Band Neutrophils # Lymphocytes # (Manual) Monocytes # (Manual) Absolute Metamyelocyte Nucleated RBCs # K/uL INR (0.86-1.11) Lactate (0.20-2.00) mmol/L Sodium (136-146) mmol/L Potassium (3.5-5.1) mmol/L Chloride (98-110) mmol/L Carbon Dioxide (21-31) mmol/L BUN (6.0-23.0) mg/dL Creatinine (0.6-1.5) mg/dL Est Cr Clr Drug Dosing mL/min Estimated GFR (MDRD) ml/min Glucose (60-110) mg/dL Calcium (8.8-10.8) mg/dL Total Bilirubin (0.1-1.5) mg/dL AST (5-40) IU/L ALT (8-54) IU/L Alkaline Phosphatase (40-150) Ammonia (14-68) UG/DL Troponin I (0.0-0.29) NG/ML B-Natriuretic Peptide 255 H (<100) PG/ML Total Protein (6.0-8.0) g/dL Albumin (3.4-4.8) g/dL Globulin (2.0-3.5) g/dL Albumin/Globulin Ratio (1.3-2.8) Amylase (10-90) U/L TSH 3rd Generation (0.47-5.0) uIU/mL Ethyl Alcohol mg/dL Meds: Medications Generic Name Dose Route Start Last Admin Trade Name Freq PRN Reason Stop Dose Admin Sodium Chloride 1,000 mls @ 125 mls/hr 07/21/17 15:38 07/21/17 15:38 Normal Saline IV 07/21/17 23:37 125 mls/hr NOW STA Administration Meropenem 1 gm/ Sodium 100 mls @ 200 mls/hr 07/21/17 16:20 Chloride IV 07/21/17 16:49 ONETIME ONE Sodium Chloride 10 ml 07/21/17 13:00 Saline Flush FLUSH ASDIRECTED PRN Keep Vein Open Sodium Chloride 2.5 ml 07/21/17 13:00 Saline Flush FLUSH ASDIRECTED PRN Keep Vein Open Discontinued Medications Generic Name Dose Route Start Last Admin Trade Name Ness PRN Reason Stop Dose Admin Piperacillin Sod/Tazobactam 100 mls @ 100 mls/hr 07/21/17 13:00 07/21/17 14: 25 Sod 4.5 gm/ Sodium Chloride IV 07/21/17 13:59 100 mls/hr ONETIME ONE Administration Sodium Chloride 1,000 mls @ 999 mls/hr 07/21/17 12:59 07/21/17 13:52 Normal Saline IV 07/21/17 13:59 999 mls/hr STAT ONE Administration Vancomycin HCl 1 gm/ Sodium 250 mls @ 250 mls/hr 07/21/17 12:59 07/21/17 15: 39 Chloride IV 07/21/17 13:58 250 mls/hr ONETIME ONE Administration Sodium Chloride 1,000 mls @ 999 mls/hr 07/21/17 14:29 07/21/17 15:31 Normal Saline IV 07/21/17 15:29 999 mls/hr NOW STA Administration Iopamidol 75 ml 07/21/17 15:26 07/21/17 15:27 Isovue Multipack-370 (76%) IVPUSH 07/21/17 15:27 75 ml ONETIME STA Administration Departure - Departure Time of Disposition: 16:28 Disposition: Admitted As Inpatient 64 Condition: Serious Clinical Impression: Leukocytosis Sepsis Qualifiers: Sepsis type: sepsis due to unspecified organism Qualified Code(s): A41.9 - Sepsis, unspecified organism - Discharge Information Referrals: PCP,None [Primary Care Provider] - Forms: ED Department Discharge - My Orders Last 24 Hours: My Active Orders 07/21/17 12:58 Cardiac Monitoring [RC] . DIRECTED EKG Documentation Completion [RC] STAT Oxygen Therapy, ED [RC] ASDIRECTED Pulse Oximetry [RC] ASDIRECTED DRUG SCREEN, URINE [URCHEM] Stat UA W/MICROSCOPIC [URIN] Stat Blood Culture x2 Reflex Set [OM.PC] Stat Saline Lock Insert [OM.PC] Stat 07/21/17 13:00 Sodium Chloride 0.9% [Saline Flush] 10 ml FLUSH ASDIRECTED PRN Sodium Chloride 0.9% [Saline Flush] 2.5 ml FLUSH ASDIRECTED PRN 07/21/17 13:13 CDIFF TOX A+B [OP] Stat 07/21/17 13:19 CULTURE STOOL + CAMPY+SHIGATOX [RM] Stat 07/21/17 13:23 CULTURE BLOOD [BC] Stat 07/21/17 13:34 CULTURE BLOOD [BC] Stat 07/21/17 15:38 Sodium Chloride 0.9% [Normal Saline] 1,000 ml IV NOW 07/21/17 16:20 Meropenem [Merrem] 1 gm Sodium Chloride 0.9% [Normal Saline] 100 ml IV ONETIME - Assessment/Plan Last 24 Hours: My Active Orders 07/21/17 12:58 Cardiac Monitoring [RC] . DIRECTED EKG Documentation Completion [RC] STAT Oxygen Therapy, ED [RC] ASDIRECTED Pulse Oximetry [RC] ASDIRECTED DRUG SCREEN, URINE [URCHEM] Stat UA W/MICROSCOPIC [URIN] Stat Blood Culture x2 Reflex Set [OM.PC] Stat Saline Lock Insert [OM.PC] Stat 07/21/17 13:00 Sodium Chloride 0.9% [Saline Flush] 10 ml FLUSH ASDIRECTED PRN Sodium Chloride 0.9% [Saline Flush] 2.5 ml FLUSH ASDIRECTED PRN 07/21/17 13:13 CDIFF TOX A+B [OP] Stat 07/21/17 13:19 CULTURE STOOL + CAMPY+SHIGATOX [RM] Stat 07/21/17 13:23 CULTURE BLOOD [BC] Stat 07/21/17 13:34 CULTURE BLOOD [BC] Stat 07/21/17 15:38 Sodium Chloride 0.9% [Normal Saline] 1,000 ml IV NOW 07/21/17 16:20 Meropenem [Merrem] 1 gm Sodium Chloride 0.9% [Normal Saline] 100 ml IV ONETIME
[2017-07-21 13:52] LABS: CHLORIDE,CL 91 mmol/L (98-110); SODIUM,NA 127 mmol/L (136-146)
[2017-07-21] MEDS ORDERED: Sodium Chloride 0.9% 1,000 ML IV STA ×2 (14:29→15:38)
--- NOTE | 2017-07-21 14:50 | CR ---
EXAMINATION: Portable chest radiograph. HISTORY: Shortness of breath. FINDINGS: The trachea is midline. The cardiomediastinal silhouette is within normal limits. No pulmonary infilt rates, effusions or pneumothorax. Multiple right rib screw and plate hardware noted. Chronic interstitial prominence most notable withi n the right lung base. No definite focal consolidation, pleural effusion, or pneumothorax. IMPRESSION: No definite acute cardiopulmonary process.
[2017-07-21] MEDS ORDERED: Iopamidol 755 MG/ML 500 ML Multipack Bottle IVPUSH STA (15:26)
--- NOTE | 2017-07-21 15:26 | CT ---
EXAMINATION: Non contrast CT head. Coronal and sagittal reformats. HISTORY: Pain FINDINGS: No evidence of intra or extra axial hemorrhage, mass, midline shift, hydrocephalus or edema. Mild ge neralized atrophy is noted. Trace periventricular and subcortical white matter hypodensities, likely small vessel ischemic changes. No hypoattenuation changes in the major vascular territories to suggest acute infarct. No abnormal intracranial calcifications are detected. No evidence of substantial vascular calcificat ions. Mild left maxillary sinus mucosal thickening. Remaining paranasal sinus and mastoid air cells are katlyn ar. Pituitary fossa appears unremarkable. The orbits and globes are symmetric. Calvarium is intact. No evidence of skull fracture. IMPRESSION: 1. No acute intracranial findings. 2. Mild generalized atrophy and small vessel ischemic changes.
--- NOTE | 2017-07-21 15:57 | CT ---
CT of the chest, abdomen and pelvis with contrast. HISTORY: Shortness of breath TECHNIQUE: Axial CT images were obtained of the chest, abdomen and pelvis following administration Is ovue-370 without complication. Coronal and sagittal reconstructions obtained. Comparison: CT abdomen and pelvis 64 08/16/2017. FINDINGS: Chest: Postsurgical changes are noted along the right thorax with multiple screw and plate fixation o f old rib fractures. There is underlying pleural scarring noted within the right hemithorax. There i s also a trace right pleural effusion. The lungs are otherwise clear without focal consolidation. Ate lectasis is noted within the right lung base. There is a vague 4 cm subpleural nodule within the left lower lobe posteriorly. Less prominent compared to the previous CT. The heart is normal in size with out a pericardial effusion. Thoracic aorta is normal in caliber. The main pulmonary arteries are carcamo nt. Coronary artery calcifications are noted. No mediastinal or hilar lymphadenopathy. No axillary ly mphadenopathy. Trace bilateral gynecomastia. Abdomen: There is mild focal fatty infiltration near the falciform ligament, otherwise the liver appe ars normal. The spleen, adrenal glands, and pancreas appear normal. The gallbladder appears normal. N o bulky retroperitoneal lymphadenopathy or abdominal ascites. Mild heterogeneous enhancement of the kidneys with possible striated appearance within the upper pole of the left kidney.. Renal cortical cyst noted within the lower pole of the left kidney. There is a trace left perirenal stranding, similar to the prior CT. Pelvis: The large and small bowel are normal in caliber without evidence of obstruction. No focal per icolonic inflammation or stranding. The appendix is upper limits of normal otherwise unremarkable. No bulky pelvic lymphadenopathy. No free pelvic fluid. There is prominent bladder wall thickening noted . There is a moderate compression deformity of the L2 vertebral body and mild compression of the superi or endplate of L1. IMPRESSION: 1. Prominent urinary bladder wall thickening, correlate clinically for a UTI. 2. Mild heterogeneous enhancement of the kidneys, left greater than right, this could suggest underly ing pyelonephritis. 3. Acute moderate compression deformity of the L2 vertebral body. Chronic mild compression deformity of the L1 superior endplate. 4. Chronic right rib fractures with a screw and plate hardware fixation. 5. Trace right pleural effusion, unchanged.
[2017-07-21] MEDS ORDERED: Meropenem 1 GM in Sodium Chloride 0.9% 100 ML IV ONE ×2 (16:20→17:00)
[2017-07-21] MEDS ORDERED: Albuterol 0.083% 2.5 MG/3 ML Neb Soln NEB PRN ×2 (17:17→17:31)
[2017-07-21] MEDS ORDERED: Morphine 10 MG/ML Syringe IVPUSH PRN (17:17)
[2017-07-21] MEDS ORDERED: LORazepam 2 MG/ML MDV IVPUSH PRN (17:17)
[2017-07-21] MEDS ORDERED: Ondansetron 4 MG Tab.DIS PO PRN (17:17)
[2017-07-21] MEDS ORDERED: Morphine 2 MG/ML Syringe IVPUSH PRN (17:29)
--- NOTE | 2017-07-21 17:41 | PCM.HP ---
H&P History of Present Illness - General Date of Service: 07/21/17 Admit Problem/Dx: Admission Diagnosis/Problem Admission Diagnosis/Problem Sepsis secondary to urinary tract infection/ pyelonephritis Source of Information: Patient, Family () History Limitations: Reports: Other (Patient was very sleepy while in the emergency room and difficult times to arouse. Most of the history is obtained from the patient's .) - History of Present Illness Initial Comments - Free Text/Narative: 67-year-old male with significant past medical history including multiple episodes of urosepsis along with hypertension, hypercholesterolemia, COPD and alcohol dependence that is being admitted with sepsis secondary to urinary tract infection/pyelonephritis. Patient's states that over the past 2 days the patient has been increasingly weak and was complaining of fever and chills this morning. He also been complaining of low back and right flank pain over the last few days. He went to see a chiropractor which did not help relieve this pain. The of the patient had him go to a clinic here in [facility] and get a CBC, CMP and urinalysis done. CBC showed a white blood cell count of 29,000. Urinalysis showed +2 bacteria with multiple white blood cells present. UA was negative for nitrates. With these findings on lab the patient presented to the emergency room for further assessment. The patient, although difficult to arouse , does not complain of any pain and does not seem to be in any acute distress. Patient does have a history of C. difficile. ER course: CBC showed an elevated white blood cell count of 29,000. Hemoglobin is stable at 11.6. Patient has required transfusions in the past. CMP shows a sodium of 127 and a potassium of 5.2. BUN is 35 and creatinine is 2.0. Patient does not have a history of chronic kidney disease. AST is elevated at 92 and ALP is elevated at 184. ALT is within normal limits. Abdomen/pelvis CT showed bladder wall thickening suggestive of a UTI. Also showed the left kidney is larger than the right kidney suggesting pyelonephritis. All other imaging including chest x- ray, chest CT and head CT were unremarkable. Ammonia was normal. Initial troponin was negative. Amylase and TSH were within normal limits. Alcohol level was normal. BMP was mildly elevated at 255. This is a new finding for the patient. No past cardiac history. Lactate was normal. Patient was given a one- time dose of Zosyn, vancomycin and meropenem. He was also given multiple doses of IV fluids and then started on maintenance fluids at 125 mL/hour of normal saline. Urinalysis, drug screen, C. difficile and stool cultures are all pending. Lower Back Pain Score (Numeric/FACES): 4 - Related Data Allergies/Adverse Reactions: Allergies Allergy/AdvReac Type Severity Reaction Status Date / Time ertapenem [From Invanz] Allergy Other Verified 07/21/17 17:38 Home Medications: Home Meds Fluticasone/Salmeterol [Advair Diskus 250-50] 1 puff INH BID 04/21/17 [History] Aspirin [Ecotrin] 81 mg PO DAILY 05/04/17 [History] Albuterol Sulfate 2.5 mg NEB BID PRN 06/18/17 [History] Carvedilol 3.125 mg PO BIDMEALS 06/18/17 [History] Furosemide 20 mg PO DAILY 06/18/17 [History] Loperamide HCl [Imodium A-D] 2 mg PO DAILY 06/18/17 [History] QUEtiapine [SEROquel] 25 mg PO BEDTIME 06/18/17 [History] Saccharomyces Boulardii [Digestive Probiotic] 500 mg PO DAILY 06/18/17 [History] Acetaminophen [Tylenol] 325 mg PO ASDIRECTED PRN 07/21/17 [History] Ibuprofen 600 mg PO ASDIRECTED PRN 07/21/17 [History] buPROPion [Wellbutrin] 0 mg PO DAILY 07/21/17 [History] Past Medical History - Past Health History Medical/Surgical History: Denies Medical/Surgical History HEENT History: Reports: Cataract, Impaired Vision Cardiovascular History: Reports: High Cholesterol, Hypertension Other Cardiovascular History: hypokalemia; he had post operative atrial fibrillation. He was placed on amiodarone earlier this year with intent being to use it temporarily as he has since remained in sinus rhythm. Respiratory History: Reports: COPD, Pneumothorax, SOB Other Respiratory History: flail chest. hemothorax Gastrointestinal History: Reports: None Genitourinary History: Reports: Other (See Below) Other Genitourinary History: urosepsis Musculoskeletal History: Reports: None Neurological History: Reports: Head Trauma, Neuropathy, Peripheral Psychiatric History: Reports: Other (See Below) Other Psychiatric History: alcohol dependence with withdrawl delerium Endocrine/Metabolic History: Reports: Obesity/BMI 30+ Hematologic History: Reports: Blood Transfusion(s) Immunologic History: Reports: None Oncologic (Cancer) History: Reports: None Dermatologic History: Reports: None - Infectious Disease History Infectious Disease History: Reports: Chicken Pox - Past Surgical History Head Surgeries/Procedures: Reports: None HEENT Surgical History: Reports: None Cardiovascular Surgical History: Reports: None Respiratory Surgical History: Reports: None GI Surgical History: Reports: None Male Surgical History: Reports: None Endocrine Surgical History: Reports: None Neurological Surgical History: Reports: None Musculoskeletal Surgical History: Reports: Other (See Below) Other Musculoskeletal Surgeries/Procedures:: multiple rib fractures Dermatological Surgical History: Reports: None Social & Family History - Family History Family Medical History: Noncontributory - Tobacco Use Smoking Status *Q: Never Smoker Used Tobacco, but Quit: No Month Tobacco Last Used: 1969 Second Hand Smoke Exposure: No - Caffeine Use Caffeine Use: Reports: None - Recreational Drug Use Recreational Drug Use: No H&P Review of Systems - Review of Systems: Review Of Systems: See Below General: Reports: Fever, Chills, Weakness, Fatigue HEENT: Reports: No Symptoms Pulmonary: Reports: No Symptoms Cardiovascular: Reports: Blood Pressure Problem Gastrointestinal: Reports: No Symptoms, Diarrhea (This is a chronic condition for the patient.) Genitourinary: Reports: No Symptoms Musculoskeletal: Reports: Back Pain (Chronic back pain with increased pain at the right flank.) Skin: Reports: No Symptoms Psychiatric: Reports: No Symptoms Neurological: Reports: Confusion (Stated by the .) Hematologic/Lymphatic: Reports: No Symptoms Immunologic: Reports: No Symptoms Exam - Exam Exam: See Below - Vital Signs Vital Signs: Last Vital Signs Temp 96.6 F 07/21/17 12:53 Pulse 67 07/21/17 12:53 Resp 12 07/21/17 15:45 BP 85/54 L 07/21/17 15:45 Pulse Ox 100 07/21/17 15:45 Weight: 161 lb 12.8 oz - Exam Quality Assessment: Supplemental Oxygen (2 L nasal cannula), DVT Prophylaxis ( SCDs, Lovenox) General: Lethargic (Difficult to get history from the patient given current condition.) HEENT: Conjunctiva Clear, Hearing Intact, Mucosa Moist & [place], Nares Patent, Posterior Pharynx Clear Neck: Supple, Trachea Midline, 2 Lungs: Clear to Auscultation, Normal Respiratory Effort Cardiovascular: Regular Rate, Regular Rhythm GI/Abdominal Exam: Normal Bowel Sounds, Soft, Non-Tender, No Organomegaly, No Distention, No Abnormal Bruit, No Mass Extremities: Normal Inspection, Non-Tender, No Pedal Edema Peripheral Pulses: 2+: Radial (L), Radial (R), Posterior Tibial (L), Posterior Tibial (R) Skin: Warm, Dry, Intact Neuro Extensive - Mental Status: Opens Eyes to Commands, Other (Falls asleep easily while answering questions) Psychiatric: Other (Lethargic) - Patient Data Result Diagrams: 07/21/17 13:34 07/21/17 13:23 *Q Meaningful Use (ADM) - VTE *Q VTE Criteria *Q: - Stroke *Q Stroke Criteria *Q: - AMI *Q AMI Criteria *Q: - Problem List (1) Pyelonephritis SNOMED Code(s): 49326571 ICD Code: N12 - TUBULO-INTERSTITIAL NEPHRITIS, NOT SPCF ACUTE OR CHRONIC Status: Acute Current Visit: Yes (2) Sepsis SNOMED Code(s): 28535606 ICD Code: A41.9 - SEPSIS, UNSPECIFIED ORGANISM Status: Acute Priority: High Current Visit: Yes Qualifiers: Sepsis type: sepsis due to unspecified organism Qualified Code(s): A41.9 - Sepsis, unspecified organism (3) Acute kidney injury SNOMED Code(s): 20953687 ICD Code: N17.9 - ACUTE KIDNEY FAILURE, UNSPECIFIED Status: Acute Priority: High Current Visit: No Problem Details: Gentle fluid resuscitation (4) UTI (urinary tract infection) SNOMED Code(s): 13805514 ICD Code: N39.0 - URINARY TRACT INFECTION, SITE NOT SPECIFIED Status: Acute Priority: High Current Visit: No Problem Details: ESB Klebsiella pneumoniae history Qualifiers: Urinary tract infection type: acute cystitis Hematuria presence: with hematuria Qualified Code(s): N30.01 - Acute cystitis with hematuria Problem List Initiated/Reviewed/Updated: Yes Orders Last 24hrs: Active Orders 24 hr Category Date Time Status Antiembolic Devices [RC] PER UNIT ROUTINE Care 07/21/17 17:21 Active CIWAA Assessment [RC] Q4H Care 07/21/17 17:17 Active Height and Weight [RC] DAILY Care 07/21/17 17:17 Active Intake and Output [RC] QSHIFT Care 07/21/17 17:18 Active Notify Provider Vital Signs [RC] ASDIRECTED Care 07/21/17 17:18 Active Oxygen Therapy [RC] PRN Care 07/21/17 17:17 Active Pulse Oximetry [RC] PRN Care 07/21/17 17:18 Active RT Aerosol Therapy [RC] ASDIRECTED Care 07/21/17 17:21 Active Telemetry Monitoring [Cardiac Monitoring] [RC] . Care 07/21/17 17:29 Active DIRECTED Up With Assistance [RC] ASDIRECTED Care 07/21/17 17:17 Active VTE/DVT Education [RC] PER UNIT ROUTINE Care 07/21/17 17:17 Active Vital Signs [RC] Q4H Care 07/21/17 17:17 Active Regular Diet [DIET] Diet 07/21/17 Breakfast Active CBC WITH AUTO DIFF [HEME] AM Lab 07/22/17 05:11 Ordered CBC WITH AUTO DIFF [HEME] AM Lab 07/23/17 05:11 Ordered CBC WITH AUTO DIFF [HEME] AM Lab 07/24/17 05:11 Ordered COMPREHENSIVE METABOLIC PN,CMP [CHEM] AM Lab 07/22/17 05:11 Ordered COMPREHENSIVE METABOLIC PN,CMP [CHEM] AM Lab 07/23/17 05:11 Ordered COMPREHENSIVE METABOLIC PN,CMP [CHEM] AM Lab 07/24/17 05:11 Ordered CULTURE URINE [RM] Routine Lab 07/21/17 17:15 Ordered MAGNESIUM [CHEM] AM Lab 07/22/17 05:11 Ordered MAGNESIUM [CHEM] AM Lab 07/23/17 05:11 Ordered MAGNESIUM [CHEM] AM Lab 07/24/17 05:11 Ordered MAGNESIUM [CHEM] Routine Lab 07/21/17 13:34 Received PHOSPHORUS [CHEM] AM Lab 07/22/17 05:11 Ordered PHOSPHORUS [CHEM] AM Lab 07/23/17 05:11 Ordered PHOSPHORUS [CHEM] AM Lab 07/24/17 05:11 Ordered PHOSPHORUS [CHEM] Routine Lab 07/21/17 13:34 Received Albuterol [Proventil Neb Soln] Med 07/21/17 17:31 Ordered 2.5 mg NEB BID PRN Albuterol [Proventil Neb Soln] Med 07/21/17 17:17 Stop Req 2.5 mg NEB Q4HRRT PRN Aspirin [Halfprin] Med 07/22/17 09:00 Ordered 81 mg PO DAILY Enoxaparin [Lovenox] Med 07/21/17 17:30 Active 40 mg SUBCUT Q24H Fluticasone/Salmeterol [Advair Diskus 250-50] Med 07/21/17 21:00 Ordered 1 puff INH BID Folic Acid Med 07/21/17 17:45 Ordered 1 mg PO DAILY LORazepam [Ativan] Med 07/21/17 17:17 Active See Protocol IVPUSH Q4H PRN Loperamide Med 07/22/17 09:00 Ordered 2 mg PO DAILY Meropenem [Merrem] 1 gm Med 07/22/17 01:00 Active Sodium Chloride 0.9% [Normal Saline] 100 ml IV Q8H Morphine Med 07/21/17 17:29 Active 2 mg IVPUSH Q6H PRN Ondansetron [Zofran ODT] Med 07/21/17 17:17 Ordered 4 mg PO Q4H PRN Piperacillin/Tazobactam [Piperacil-Tazobact] 3.375 gm Med 07/21/17 17:30 Ordered Sodium Chloride 0.9% [Normal Saline] 50 ml IV Q6H QUEtiapine [SEROquel] Med 07/21/17 21:00 Ordered 25 mg PO BEDTIME Saccharomyces Boulardii Med 07/22/17 09:00 Ordered 500 mg PO DAILY Thiamine [Vitamin B-1] Med 07/21/17 17:30 Ordered 100 mg PO BEDTIME Vancomycin Pharmacy to Dose [Pharmacy to Dose - Med 07/21/17 17:30 Ordered Vancomycin] 1 dose .XX ASDIRECTED Welbutrin Med 07/22/17 09:00 Ordered 75 mg PO DAILY oxyCODONE Med 07/21/17 17:17 Ordered 5 mg PO Q4H PRN Sequential Compression Device [OM.PC] Per Unit Routine Oth 07/21/17 17:19 Ordered Medication Orders Albuterol (Proventil Neb Soln) 2.5 mg NEB Q4HRRT PRN PRN Reason: Shortness Of Breath/wheezing Albuterol (Proventil Neb Soln) 2.5 mg NEB BID PRN PRN Reason: Shortness of Breath Aspirin (Halfprin) 81 mg PO DAILY JOSE Enoxaparin Sodium (Lovenox) 40 mg SUBCUT Q24H [facility] Folic Acid (Folic Acid) 1 mg PO DAILY [facility] Sodium Chloride (Normal Saline) 1,000 mls @ 125 mls/hr IV NOW STA Stop: 07/21/17 23:37 Last Admin: 07/21/17 15:38 Dose: 125 mls/hr Meropenem 1 gm/ Sodium (Chloride) 100 mls @ 200 mls/hr IV Q8H [facility] Piperacillin Sod/Tazobactam (Sod 3.375 gm/ Sodium Chloride) 50 mls @ 100 mls/ hr IV Q6H [facility] Lorazepam (Ativan) 0 mg IVPUSH Q4H PRN; Protocol PRN Reason: Agitation Morphine Sulfate (Morphine) 2 mg IVPUSH Q6H PRN PRN Reason: Pain (severe 7-10) Stop: 07/22/17 17:20 Non-Formulary Medication (Loperamide) 2 mg PO DAILY [facility] Non-Formulary Medication (Saccharomyces Boulardii) 500 mg PO DAILY [facility] Non-Formulary Medication (Welbutrin) 75 mg PO DAILY [facility] Ondansetron HCl (Zofran Odt) 4 mg PO Q4H PRN PRN Reason: nausea, able to take PO Oxycodone HCl (Oxycodone) 5 mg PO Q4H PRN PRN Reason: Pain (moderate 4-6) Quetiapine Fumarate (Seroquel) 25 mg PO BEDTIME [facility] Fluticasone/Salmeterol (Advair Diskus 250-50) 1 puff INH BID [facility] Sodium Chloride (Saline Flush) 10 ml FLUSH ASDIRECTED PRN PRN Reason: Keep Vein Open Sodium Chloride (Saline Flush) 2.5 ml FLUSH ASDIRECTED PRN PRN Reason: Keep Vein Open Thiamine HCl (Vitamin B-1) 100 mg PO BEDTIME [facility] Vancomycin HCl (Pharmacy To Dose - Vancomycin) 1 dose .XX ASDIRECTED [facility] Assessment/Plan Comment:: 67-year-old male being admitted with sepsis secondary to urinary tract infection /pyelonephritis: #1. Sepsis secondary to urinary tract infection/pyelonephritis -Patient will be maintained on IV Zosyn, vancomycin and meropenem. Past urine culture showed ESBL sensitivities and resistance to most antibiotics. He was sensitive to Zosyn and meropenem. -UTI is based on urine culture obtained over at [facility]. We are obtaining another UA and urine culture. -Patient received multiple fluid boluses while in the ER. He will be maintained on normal saline at 125 mL/hour. White count is 29,000. Repeat CBC and CMP in the morning. Lactate is within normal limits. -Other potential causes of sepsis are being ruled out including C. difficile, stool cultures. Blood cultures are pending. Patient does have a history of C. difficile. Chest x-ray was normal. #2. History of alcohol abuse: - states that patient has not been drinking excessively over the last few days. However, we will place him on CIWAA protocol with Ativan and give him daily thiamine and folate. Patient will also be placed on seizure precautions. -Ethanol level is within normal limits. #3. Acute kidney injury secondary to sepsis: -IV fluids with normal saline at 125 mL/hour. Patient's home dose of ibuprofen has been held. All home blood pressure medications have been held. Repeat CMP in the morning. -BNP is mildly elevated at 255. We will not give Lasix at this time secondary to acute kidney injury and low blood pressure. Patient has no past cardiac history apart from atrial fibrillation. #4. Past history of atrial fibrillation: -Patient had one episode of atrial fibrillation recently and was placed on amiodarone. This was discontinued by his PCP yesterday. For this reason, the patient will be placed on telemetry. #5. Hyperkalemia/hyponatremia/hypomagnesemia: -Potassium is 5.2. We will recheck this with a CMP in the morning. Patient does take 20 mg of Lasix daily but this is being held secondary to acute kidney injury and hypotension. -Patient placed on telemetry. -Sodium is 127. Patient placed on Normal saline at 125 mL/hour. Recheck CMP in the morning. -Magnesium is 1.3. Patient will be given 2 g of magnesium IV. Recheck magnesium in the morning. -Phosphorus is 5. Recheck in the morning. DVT prophylaxis: Lovenox, SCDs. We will monitor kidney function for renal dosing of Lovenox. Discharge: 2-4 days pending improvement.
[2017-07-21] MEDS ORDERED: Magnesium Sulfate/Water 2 GM in Premix Bag 1 BAG IV ONE (17:56)
[2017-07-21] MEDS: Folic Acid 1 MG Tab PO SCH (18:41)
[2017-07-21] MEDS: Enoxaparin 40 MG/0.4 ML Syringe SUBCUT SCH (18:42)
[2017-07-21] MEDS: Thiamine 100 MG Tab PO SCH ×2 (18:42→21:36)
[2017-07-21] MEDS: QUEtiapine 25 MG Tab PO SCH (20:03)
[2017-07-21] MEDS: Piperacillin/Tazobactam 3.375 GM in Sodium Chloride 0.9% 50 ML IV SCH (20:04)
[2017-07-21] MEDS: Fluticasone/Salmeterol 250-50 MCG Inhalation Powder 14/Diskus INH SCH (21:06)
[2017-07-21] MEDS: Sodium Chloride 0.9% 1,000 ML IV SCH (22:01)
[2017-07-21] MEDS: oxyCODONE 5 MG Tab PO PRN (22:27)
[2017-07-21] MEDS ORDERED: Acetaminophen 325 MG Tab PO PRN (22:56)
[2017-07-22] MEDS: Meropenem 1 GM in Sodium Chloride 0.9% 100 ML IV SCH ×4 (00:57→17:49)
[2017-07-22] MEDS: Piperacillin/Tazobactam 3.375 GM in Sodium Chloride 0.9% 50 ML IV SCH ×2 (02:10→08:34)
[2017-07-22] MEDS ORDERED: Sodium Chloride 0.9% 1,000 ML IV ONE (03:47)
[2017-07-22] MEDS ORDERED: Norepinephrine 4 MG in Dextrose 5% in Water 246 ML IV SCH ×2 (04:00)
[2017-07-22] MEDS: Sodium Chloride 0.9% 1,000 ML IV SCH ×3 (04:50→23:45)
--- NOTE | 2017-07-22 05:54 | PCM.CONS ---
H&P History of Present Illness - General Date of Service: 07/22/17 Admit Problem/Dx: Admission Diagnosis/Problem Admission Diagnosis/Problem Sepsis secondary to urinary tract infection/ pyelonephritis Source of Information: Patient, Family History Limitations: Reports: No Limitations - History of Present Illness Initial Comments - Free Text/Narative: Patient is a 67-year-old gentleman, who is currently in the intensive care unit on the hospitalist service secondary to urosepsis. I was called at 4:30 this morning for consideration for placement of a triple-lumen catheter for a Levophed drip. Anesthesiology had originally been contacted and requested that I be contacted. Patient has been hypotensive throughout his hospital stay. He has been in the hospital less than 24 hours with a diagnosis of urosepsis. He has not been tachycardic nor hypoxemic. He has had similar episodes in the past and on at least one occasion has had a triple-lumen catheter or central line placed for Levophed. He was only on the medication for about an hour and a half. It is also anticipated that he may have a PICC line present for long-term outpatient intravenous antibiotics. Onset of Symptoms: Reports: Today Duration of Symptoms: Reports: Hour(s): Severity: Moderate Improves with: Reports: Rest Worsens with: Reports: None Associated Symptoms: Denies: Confusion, Chest Pain, cough w sputum, Diaphoresis , Fever/Chills, Headaches, Nausea/Vomiting Lower Back Pain Score (Numeric/FACES): 4 - Related Data Allergies/Adverse Reactions: Allergies Allergy/AdvReac Type Severity Reaction Status Date / Time ertapenem [From Invanz] Allergy Other Verified 07/21/17 17:38 Home Medications: Home Meds Fluticasone/Salmeterol [Advair Diskus 250-50] 1 puff INH BID 04/21/17 [History] Aspirin [Ecotrin] 81 mg PO DAILY 05/04/17 [History] Albuterol Sulfate 2.5 mg NEB BID PRN 06/18/17 [History] Carvedilol 3.125 mg PO BIDMEALS 06/18/17 [History] Furosemide 20 mg PO DAILY 06/18/17 [History] Loperamide HCl [Imodium A-D] 2 mg PO DAILY 06/18/17 [History] QUEtiapine [SEROquel] 25 mg PO BEDTIME 06/18/17 [History] Saccharomyces Boulardii [Digestive Probiotic] 500 mg PO DAILY 06/18/17 [History] Acetaminophen [Tylenol Extra Strength] 1,000 mg PO TID PRN 07/21/17 [History] Gabapentin [Neurontin] 600 mg PO TID 07/21/17 [History] Ibuprofen 600 mg PO ASDIRECTED PRN 07/21/17 [History] buPROPion [Wellbutrin XL] 150 mg PO DAILY 07/21/17 [History] Past Medical History - Past Health History Medical/Surgical History: Denies Medical/Surgical History HEENT History: Reports: Cataract, Impaired Vision Cardiovascular History: Reports: High Cholesterol, Hypertension Other Cardiovascular History: hypokalemia; he had post operative atrial fibrillation. He was placed on amiodarone earlier this year with intent being to use it temporarily as he has since remained in sinus rhythm. Respiratory History: Reports: COPD, Pneumothorax, SOB Other Respiratory History: flail chest. hemothorax Gastrointestinal History: Reports: None Genitourinary History: Reports: Pyelonephritis, UTI, Recurrent, Other (See Below ) Other Genitourinary History: urosepsis Musculoskeletal History: Reports: Fracture Neurological History: Reports: Concussion, Head Trauma, Neuropathy, Peripheral, Seizure Psychiatric History: Reports: Other (See Below) Other Psychiatric History: alcohol dependence with withdrawl delerium Endocrine/Metabolic History: Reports: Obesity/BMI 30+ Hematologic History: Reports: Blood Transfusion(s) Immunologic History: Reports: None Oncologic (Cancer) History: Reports: None Dermatologic History: Reports: None - Infectious Disease History Infectious Disease History: Reports: C-Difficile, Chicken Pox, Measles, Mumps - Past Surgical History Head Surgeries/Procedures: Reports: None HEENT Surgical History: Reports: Cataract Surgery Cardiovascular Surgical History: Reports: None GI Surgical History: Reports: Colonoscopy Male Surgical History: Reports: None Endocrine Surgical History: Reports: None Neurological Surgical History: Reports: None Musculoskeletal Surgical History: Reports: Other (See Below) Other Musculoskeletal Surgeries/Procedures:: multiple rib fractures Dermatological Surgical History: Reports: None Social & Family History - Family History Family Medical History: Noncontributory GI: Reports: Cirrhosis Oncologic: Reports: Colon, Prostate - Tobacco Use Smoking Status *Q: Former Smoker Years of Tobacco use: 30 Packs/Tins Daily: 2 Used Tobacco, but Quit: Yes Month Tobacco Last Used: 1999 Second Hand Smoke Exposure: No - Caffeine Use Caffeine Use: Reports: None - Recreational Drug Use Recreational Drug Use: No H&P Review of Systems - Review of Systems: Review Of Systems: See Below General: Reports: Malaise, Weakness. Denies: Fever, Chills, Fatigue, Night Sweats, Diaphoresis, Decreased Appetite HEENT: Reports: No Symptoms Pulmonary: Denies: Shortness of Breath, Wheezing Cardiovascular: Denies: Chest Pain, Palpitations Gastrointestinal: Denies: Abdominal Pain, Anorexia, Black Stool, Bloody Stool Genitourinary: Denies: Dysuria, Frequency, Burning, Pain, Urgency, Incontinence , Flank Pain Musculoskeletal: Reports: Muscle Stiffness Skin: Reports: No Symptoms Psychiatric: Denies: Confusion, Agitation Neurological: Denies: Confusion, Headache, Numbness Hematologic/Lymphatic: Reports: No Symptoms Immunologic: Reports: No Symptoms Exam - Exam Exam: See Below - Vital Signs Vital Signs: Last Vital Signs Temp 98.6 F 07/22/17 04:00 Pulse 67 07/21/17 12:53 Resp 14 07/22/17 05:00 BP 108/60 07/22/17 05:00 Pulse Ox 94 L 07/22/17 05:00 Weight: 169 lb 15.622 oz - Exam Quality Assessment: Supplemental Oxygen. No: Central Line/PICC General: Alert, Oriented, Cooperative HEENT: Conjunctiva Clear, EOMI Neck: Supple, Trachea Midline Lungs: Clear to Auscultation, Normal Respiratory Effort Cardiovascular: Regular Rate, Regular Rhythm. No: Tachycardia GI/Abdominal Exam: Soft, Non-Tender (Male) Exam: Normal Inspection Rectal (Males) Exam: Deferred Back Exam: Normal Inspection Extremities: Normal Inspection Skin: Warm, Dry, Intact Neurological: Cranial Nerves Intact Neuro Extensive - Mental Status: Alert, Oriented x3, Normal Mood/Affect, Normal Cognition, Memory Intact Psychiatric: Alert, Normal Affect, Normal Mood - Patient Data Lab Results Last 24 hrs: Laboratory Results - last 24 hr 07/21/17 07/21/17 07/21/17 Range/Units 17:30 17:30 21:18 WBC (4.0-11.0) K/uL RBC (4.50-5.90) M/uL Hgb (13.0-17.0) g/dL Hct (38.0-50.0) % MCV (80.0-98.0) fL MCH (27.0-32.0) pg MCHC (31.0-37.0) g/dL RDW Std Deviation (28.0-62.0) fl RDW Coeff of Jeannie (11.0-15.0) % Plt Count (150-400) K/uL MPV (7.40-12.00) fL Add Manual Diff Nucleated RBC % /100WBC Nucleated RBCs # K/uL Magnesium 1.7 (1.5-2.3) mEq/L Urine Color YELLOW Urine Appearance SLT CLOUDY Urine pH 5.5 (5.0-8.0) Ur Specific [place] <= 1.005 (1.001-1.035) Urine Protein NEGATIVE (NEGATIVE) mg/dL Urine Glucose (UA) NEGATIVE (NEGATIVE) mg/dL Urine Ketones NEGATIVE (NEGATIVE) mg/dL Urine Occult Blood LARGE H (NEGATIVE) Urine Nitrite POSITIVE H (NEGATIVE) Urine Bilirubin NEGATIVE (NEGATIVE) Urine Urobilinogen 0.2 (<2.0) EU/dL Ur Leukocyte Esterase MODERATE (NEGATIVE) Urine RBC 2-5 (0-2/HPF) Urine WBC 40-45 (0-5/HPF) Ur Epithelial Cells FEW (NONE-FEW) Urine Bacteria 1+ H (NEGATIVE) Urine Opiates Screen NEGATIVE (NEGATIVE) Ur Oxycodone Screen NEGATIVE (NEGATIVE) Urine Methadone Screen NEGATIVE (NEGATIVE) Ur Barbiturates Screen NEGATIVE (NEGATIVE) Ur Phencyclidine Scrn NEGATIVE (NEGATIVE) Ur Amphetamine Screen NEGATIVE (NEGATIVE) U Methamphetamines Scrn NEGATIVE (NEGATIVE) U Benzodiazepines Scrn NEGATIVE (NEGATIVE) U Cocaine Metab Screen NEGATIVE (NEGATIVE) U Marijuana (THC) Screen NEGATIVE (NEGATIVE) 07/22/17 Range/Units 05:15 WBC 22.11 H (4.0-11.0) K/uL RBC 3.39 L (4.50-5.90) M/uL Hgb 9.7 L (13.0-17.0) g/dL Hct 29.0 L (38.0-50.0) % MCV 85.5 (80.0-98.0) fL MCH 28.6 (27.0-32.0) pg MCHC 33.4 (31.0-37.0) g/dL RDW Std Deviation 52.1 (28.0-62.0) fl RDW Coeff of Jeannie 17 H (11.0-15.0) % Plt Count 332 (150-400) K/uL MPV 8.90 (7.40-12.00) fL Add Manual Diff YES Nucleated RBC % 0.0 /100WBC Nucleated RBCs # 0 K/uL Magnesium (1.5-2.3) mEq/L Urine Color Urine Appearance Urine pH (5.0-8.0) Ur Specific [place] (1.001-1.035) Urine Protein (NEGATIVE) mg/dL Urine Glucose (UA) (NEGATIVE) mg/dL Urine Ketones (NEGATIVE) mg/dL Urine Occult Blood (NEGATIVE) Urine Nitrite (NEGATIVE) Urine Bilirubin (NEGATIVE) Urine Urobilinogen (<2.0) EU/dL Ur Leukocyte Esterase (NEGATIVE) Urine RBC (0-2/HPF) Urine WBC (0-5/HPF) Ur Epithelial Cells (NONE-FEW) Urine Bacteria (NEGATIVE) Urine Opiates Screen (NEGATIVE) Ur Oxycodone Screen (NEGATIVE) Urine Methadone Screen (NEGATIVE) Ur Barbiturates Screen (NEGATIVE) Ur Phencyclidine Scrn (NEGATIVE) Ur Amphetamine Screen (NEGATIVE) U Methamphetamines Scrn (NEGATIVE) U Benzodiazepines Scrn (NEGATIVE) U Cocaine Metab Screen (NEGATIVE) U Marijuana (THC) Screen (NEGATIVE) Result Diagrams: 07/22/17 05:15 07/21/17 13:23 Lebron Results Last 24 hrs: Microbiology 07/21/17 19:55 Clostridium difficile Toxin A&B (M) - Final Stool / Feces - Stool, Formed Positive C. Diff Antigen Positive C. Diff Toxin Consult PN Assessment/Plan Procedures: Procedures AIRWAY INHALATION TREATMENT (06/18/17) ASSAY OF AMMONIA (05/18/17) ASSAY OF CK (CPK) (06/18/17) ASSAY OF FOLIC ACID SERUM (05/18/17) ASSAY OF LACTIC ACID (06/18/17) ASSAY OF MAGNESIUM (06/18/17) ASSAY OF PHOSPHORUS (06/18/17) ASSAY OF TROPONIN QUANT (06/18/17) ASSAY OF VITAMIN B-1 (07/01/16) ASSAY THYROID STIM HORMONE (06/18/17) BLOOD CULTURE FOR BACTERIA (06/18/17) BLOOD GASES ANY COMBINATION (05/18/17) BLOOD TRANSFUSION SERVICE (05/06/17) BLOOD TYPING SEROLOGIC ABO (05/06/17) BLOOD TYPING SEROLOGIC RH(D) (05/06/17) CHEST X-RAY 1 VIEW FRONTAL (06/18/17) CHEST X-RAY 2VW FRONTAL&LATL (06/18/17) CLOSTRIDIUM AG IA (05/06/17) COMPATIBILITY TEST ANTIGLOB (05/06/17) COMPATIBILITY TEST INCUBATE (05/06/17) COMPATIBILITY TEST SPIN (05/06/17) COMPLETE CBC W/AUTO DIFF WBC (06/18/17) COMPREHEN METABOLIC PANEL (06/18/17) CREATINE MB FRACTION (06/18/17) CT ABD & PELVIS W/O CONTRAST (05/06/17) CT ANGIOGRAPHY CHEST (03/11/17) CT HEAD/BRAIN W/O DYE (05/18/17) CULTURE AEROBIC IDENTIFY (05/06/17) ELECTROCARDIOGRAM TRACING (06/18/17) EMERGENCY DEPT VISIT (06/18/17) EMERGENCY DEPT VISIT (04/26/17) EMERGENCY DEPT VISIT (03/11/17) EVALUATE PT USE OF INHALER (06/18/17) FLUOROGUIDE FOR VEIN DEVICE (06/18/17) GLUCOSE BLOOD TEST (06/18/17) HYDRATE IV INFUSION ADD-ON (06/18/17) INSERT BLADDER CATH COMPLEX (06/18/17) INSERT PICC CATH (06/18/17) METABOLIC PANEL TOTAL CA (06/18/17) MICROBE SUSCEPTIBLE LEBRON (06/18/17) OFFICE/OUTPATIENT VISIT EST (08/30/16) OFFICE/OUTPATIENT VISIT NEW (08/23/16) OFFICE/OUTPATIENT VISIT NEW (06/28/16) PROTHROMBIN TIME (05/06/17) RBC ANTIBODY SCREEN (05/06/17) ROUTINE VENIPUNCTURE (06/18/17) THER/PROPH/DIAG INJ IV PUSH (06/18/17) THER/PROPH/DIAG IV INF INIT (05/18/17) TTE W/DOPPLER COMPLETE (05/18/17) TX/PRO/DX INJ NEW DRUG ADDON (06/18/17) URINALYSIS AUTO W/SCOPE (06/18/17) URINE BACTERIA CULTURE (06/18/17) URINE CULTURE/COLONY COUNT (06/18/17) US GUIDE VASCULAR ACCESS (06/18/17) VENT MGMT INPAT INIT DAY (05/18/17) VITAMIN B-12 (05/18/17) WITHDRAWAL OF ARTERIAL BLOOD (05/18/17) (1) Leukocytosis SNOMED Code(s): 075752641, 823442519 Code(s): D72.829 - ELEVATED WHITE BLOOD CELL COUNT, UNSPECIFIED Priority: High Current Visit: Yes (2) Sepsis SNOMED Code(s): 96407098 Code(s): A41.9 - SEPSIS, UNSPECIFIED ORGANISM Priority: High Current Visit: Yes Qualifiers: Sepsis type: sepsis due to unspecified organism Qualified Code(s): A41.9 - Sepsis, unspecified organism (3) Dehydration SNOMED Code(s): 64353640 Code(s): E86.0 - DEHYDRATION Current Visit: No Comment: IV normal saline 75 mL per hour Problem List Initiated/Reviewed/Updated: Yes Plan: Patient's blood pressures during the period of observation have been anywhere from 80 to about 110 mmHg systolic. He is awake, alert and oriented. He is not tachycardic. His heart rate has generally been in the low 80s. He is not hypoxemic with O2 saturations in the high 90s. Given the fact that his blood pressure was in the 60-70 systolic range when he arrived and he has been quite stable hemodynamically and with discussion with the patient and his , we are going to hold off for the time being on placing a central line. He does need a PICC line for long-term outpatient IV antibiotic therapy and the hope is that perhaps that can be arranged to be done this weekend. I will see him later today and reassess but at this point, he is hemodynamically stable despite having blood pressure in the 80-90 range. He does not need aggressive fluid resuscitation.
[2017-07-22] MEDS ORDERED: Magnesium Sulfate/Water 2 GM in Premix Bag 1 BAG IV ONE (07:56)
[2017-07-22] MEDS: Fluticasone/Salmeterol 250-50 MCG Inhalation Powder 14/Diskus INH SCH ×2 (08:27→21:37)
[2017-07-22] MEDS: Vancomycin 25 MG/ML Compounding Kit PO SCH ×3 (08:36→21:00)
[2017-07-22] MEDS: Aspirin 81 MG Tab.EC PO SCH (08:41)
[2017-07-22] MEDS: buPROPion 150 MG Tab.ER PO SCH (08:41)
[2017-07-22] MEDS: Folic Acid 1 MG Tab PO SCH (08:41)
[2017-07-22] MEDS ORDERED: BUPROPION 75 MG PO SCH (09:00)
[2017-07-22] MEDS ORDERED: Loperamide 2 MG Cap PO SCH (09:00)
[2017-07-22] MEDS: SACCHAROMYCES BOULARDII 500 MG PO SCH (09:00)
--- NOTE | 2017-07-22 09:11 | PCM.PN ---
- Review of Systems Systems Review Comment:: patient feels "good" no complaints - Patient Data Vitals - Most Recent: Last Vital Signs Temp 37.5 C 07/22/17 08:00 Pulse 67 07/21/17 12:53 Resp 14 07/22/17 08:00 BP 83/50 L 07/22/17 08:00 Pulse Ox 98 07/22/17 07:00 Weight - Most Recent: 77.1 kg I&O - Last 24 Hours: Intake & Output 07/21/17 07/22/17 07/22/17 22:59 06:59 14:59 Intake Total 1395 2785 Output Total 1350 Balance 1395 1435 Lab Results Last 24 Hours: Laboratory Results - last 24 hr 07/21/17 07/21/17 07/21/17 Range/Units 17:30 17:30 21:18 WBC (4.0-11.0) K/uL RBC (4.50-5.90) M/uL Hgb (13.0-17.0) g/dL Hct (38.0-50.0) % MCV (80.0-98.0) fL MCH (27.0-32.0) pg MCHC (31.0-37.0) g/dL RDW Std Deviation (28.0-62.0) fl RDW Coeff of Jeannie (11.0-15.0) % Plt Count (150-400) K/uL MPV (7.40-12.00) fL Add Manual Diff Neutrophils % (Manual) (48.0-80.0) % Band Neutrophils % % Lymphocytes % (Manual) (16.0-40.0) % Monocytes % (Manual) (0.0-15.0) % Eosinophils % (Manual) (0.0-7.0) % Nucleated RBC % /100WBC Absolute Seg Neuts Band Neutrophils # Lymphocytes # (Manual) Monocytes # (Manual) Eosinophils # (Manual) Nucleated RBCs # K/uL Sodium (136-146) mmol/L Potassium (3.5-5.1) mmol/L Chloride (98-110) mmol/L Carbon Dioxide (21-31) mmol/L BUN (6.0-23.0) mg/dL Creatinine (0.6-1.5) mg/dL Est Cr Clr Drug Dosing mL/min Estimated GFR (MDRD) ml/min Glucose (60-110) mg/dL Calcium (8.8-10.8) mg/dL Phosphorus (2.4-4.7) mg/dL Magnesium 1.7 (1.5-2.3) mEq/L Total Bilirubin (0.1-1.5) mg/dL AST (5-40) IU/L ALT (8-54) IU/L Alkaline Phosphatase (40-150) Total Protein (6.0-8.0) g/dL Albumin (3.4-4.8) g/dL Globulin (2.0-3.5) g/dL Albumin/Globulin Ratio (1.3-2.8) Urine Color YELLOW Urine Appearance SLT CLOUDY Urine pH 5.5 (5.0-8.0) Ur Specific [place] <= 1.005 (1.001-1.035) Urine Protein NEGATIVE (NEGATIVE) mg/dL Urine Glucose (UA) NEGATIVE (NEGATIVE) mg/dL Urine Ketones NEGATIVE (NEGATIVE) mg/dL Urine Occult Blood LARGE H (NEGATIVE) Urine Nitrite POSITIVE H (NEGATIVE) Urine Bilirubin NEGATIVE (NEGATIVE) Urine Urobilinogen 0.2 (<2.0) EU/dL Ur Leukocyte Esterase MODERATE (NEGATIVE) Urine RBC 2-5 (0-2/HPF) Urine WBC 40-45 (0-5/HPF) Ur Epithelial Cells FEW (NONE-FEW) Urine Bacteria 1+ H (NEGATIVE) Urine Opiates Screen NEGATIVE (NEGATIVE) Ur Oxycodone Screen NEGATIVE (NEGATIVE) Urine Methadone Screen NEGATIVE (NEGATIVE) Ur Barbiturates Screen NEGATIVE (NEGATIVE) Ur Phencyclidine Scrn NEGATIVE (NEGATIVE) Ur Amphetamine Screen NEGATIVE (NEGATIVE) U Methamphetamines Scrn NEGATIVE (NEGATIVE) U Benzodiazepines Scrn NEGATIVE (NEGATIVE) U Cocaine Metab Screen NEGATIVE (NEGATIVE) U Marijuana (THC) Screen NEGATIVE (NEGATIVE) 07/22/17 07/22/17 Range/Units 05:15 05:15 WBC 22.11 H (4.0-11.0) K/uL RBC 3.39 L (4.50-5.90) M/uL Hgb 9.7 L (13.0-17.0) g/dL Hct 29.0 L (38.0-50.0) % MCV 85.5 (80.0-98.0) fL MCH 28.6 (27.0-32.0) pg MCHC 33.4 (31.0-37.0) g/dL RDW Std Deviation 52.1 (28.0-62.0) fl RDW Coeff of Jeannie 17 H (11.0-15.0) % Plt Count 332 (150-400) K/uL MPV 8.90 (7.40-12.00) fL Add Manual Diff YES Neutrophils % (Manual) 85 H (48.0-80.0) % Band Neutrophils % 5 % Lymphocytes % (Manual) 7 L (16.0-40.0) % Monocytes % (Manual) 2 (0.0-15.0) % Eosinophils % (Manual) 1 (0.0-7.0) % Nucleated RBC % 0.0 /100WBC Absolute Seg Neuts 18.8 Band Neutrophils # 1.1 Lymphocytes # (Manual) 1.5 Monocytes # (Manual) 0.4 Eosinophils # (Manual) 0.2 Nucleated RBCs # 0 K/uL Sodium 133 L (136-146) mmol/L Potassium 4.1 (3.5-5.1) mmol/L Chloride 101 (98-110) mmol/L Carbon Dioxide 23 (21-31) mmol/L BUN 31 H (6.0-23.0) mg/dL Creatinine 1.5 (0.6-1.5) mg/dL Est Cr Clr Drug Dosing 48.11 mL/min Estimated GFR (MDRD) 46.4 ml/min Glucose 92 (60-110) mg/dL Calcium 8.2 L (8.8-10.8) mg/dL Phosphorus 3.8 (2.4-4.7) mg/dL Magnesium 1.3 L (1.5-2.3) mEq/L Total Bilirubin 0.4 (0.1-1.5) mg/dL AST 49 H (5-40) IU/L ALT 22 (8-54) IU/L Alkaline Phosphatase 137 (40-150) Total Protein 5.7 L (6.0-8.0) g/dL Albumin 2.3 L (3.4-4.8) g/dL Globulin 3.4 (2.0-3.5) g/dL Albumin/Globulin Ratio 0.7 L (1.3-2.8) Urine Color Urine Appearance Urine pH (5.0-8.0) Ur Specific [place] (1.001-1.035) Urine Protein (NEGATIVE) mg/dL Urine Glucose (UA) (NEGATIVE) mg/dL Urine Ketones (NEGATIVE) mg/dL Urine Occult Blood (NEGATIVE) Urine Nitrite (NEGATIVE) Urine Bilirubin (NEGATIVE) Urine Urobilinogen (<2.0) EU/dL Ur Leukocyte Esterase (NEGATIVE) Urine RBC (0-2/HPF) Urine WBC (0-5/HPF) Ur Epithelial Cells (NONE-FEW) Urine Bacteria (NEGATIVE) Urine Opiates Screen (NEGATIVE) Ur Oxycodone Screen (NEGATIVE) Urine Methadone Screen (NEGATIVE) Ur Barbiturates Screen (NEGATIVE) Ur Phencyclidine Scrn (NEGATIVE) Ur Amphetamine Screen (NEGATIVE) U Methamphetamines Scrn (NEGATIVE) U Benzodiazepines Scrn (NEGATIVE) U Cocaine Metab Screen (NEGATIVE) U Marijuana (THC) Screen (NEGATIVE) Lebron Results Last 24 Hours: Microbiology 07/21/17 19:55 Campylobacter Antigen Assay - Final Stool / Feces - Stool, Formed NEGATIVE CAMPYLOBACTER AG 07/21/17 19:55 Clostridium difficile Toxin A&B (M) - Final Stool / Feces - Stool, Formed Positive C. Diff Antigen Positive C. Diff Toxin Med Orders - Current: Current Medications Acetaminophen (Tylenol) 650 mg PO Q6H PRN PRN Reason: Fever Albuterol (Proventil Neb Soln) 2.5 mg NEB BID PRN PRN Reason: Shortness of Breath Aspirin (Halfprin) 81 mg PO DAILY [facility] Last Admin: 07/22/17 08:41 Dose: 81 mg Bupropion HCl (Wellbutrin Xl) 150 mg PO DAILY [facility] Last Admin: 07/22/17 08:41 Dose: 150 mg Enoxaparin Sodium (Lovenox) 40 mg SUBCUT Q24H [facility] Last Admin: 07/21/17 18:42 Dose: 40 mg Folic Acid (Folic Acid) 1 mg PO DAILY [facility] Last Admin: 07/22/17 08:41 Dose: 1 mg Gabapentin (Neurontin) 600 mg PO TID [facility] Meropenem 1 gm/ Sodium (Chloride) 100 mls @ 200 mls/hr IV Q8H [facility] Last Admin: 07/22/17 00:57 Dose: 200 mls/hr Piperacillin Sod/Tazobactam (Sod 3.375 gm/ Sodium Chloride) 50 mls @ 100 mls/ hr IV Q6H [facility] Last Admin: 07/22/17 08:34 Dose: 100 mls/hr Vancomycin HCl 1 gm/ Sodium (Chloride) 250 mls @ 166.667 mls/hr IV Q24H JOSE Sodium Chloride (Normal Saline) 1,000 mls @ 125 mls/hr IV ASDIRECTED [facility] Last Admin: 07/22/17 04:50 Dose: 125 mls/hr Norepinephrine Bitartrate (Norepinephr-0.9% Nacl 4 Mg/250) 250 mls @ 7.5 mls/ hr IV TITRATE JOSE; 2 MCG/MIN PRN Reason: Protocol Lorazepam (Ativan) 0 mg IVPUSH Q4H PRN; Protocol PRN Reason: Agitation Morphine Sulfate (Morphine) 2 mg IVPUSH Q6H PRN PRN Reason: Pain (severe 7-10) Stop: 07/22/17 17:20 Ondansetron HCl (Zofran Odt) 4 mg PO Q4H PRN PRN Reason: nausea, able to take PO Oxycodone HCl (Oxycodone) 5 mg PO Q4H PRN PRN Reason: Pain (moderate 4-6) Last Admin: 07/21/17 22:27 Dose: 5 mg Saccharomyces (Boulardii 500 Mg) 1 each PO DAILY [facility] Quetiapine Fumarate (Seroquel) 25 mg PO BEDTIME [facility] Last Admin: 07/21/17 20:03 Dose: 25 mg Fluticasone/Salmeterol (Advair Diskus 250-50) 1 puff INH BID [facility] Last Admin: 07/22/17 08:27 Dose: 1 puff Sodium Chloride (Saline Flush) 10 ml FLUSH ASDIRECTED PRN PRN Reason: Keep Vein Open Sodium Chloride (Saline Flush) 2.5 ml FLUSH ASDIRECTED PRN PRN Reason: Keep Vein Open Thiamine HCl (Vitamin B-1) 100 mg PO BEDTIME [facility] Last Admin: 07/21/17 21:36 Dose: Not Given Vancomycin HCl (Pharmacy To Dose - Vancomycin) 1 dose .XX ASDIRECTED [facility] Vancomycin HCl (First-Vancomycin 25 Compounding Kit) 125 mg PO Q6H [facility] Last Admin: 07/22/17 08:36 Dose: 125 mg Discontinued Medications Albuterol (Proventil Neb Soln) 2.5 mg NEB Q4HRRT PRN PRN Reason: Shortness Of Breath/wheezing Piperacillin Sod/Tazobactam (Sod 4.5 gm/ Sodium Chloride) 100 mls @ 100 mls/hr IV ONETIME ONE Stop: 07/21/17 13:59 Last Admin: 07/21/17 14:25 Dose: 100 mls/hr Sodium Chloride (Normal Saline) 1,000 mls @ 999 mls/hr IV STAT ONE Stop: 07/21/17 13:59 Last Admin: 07/21/17 13:52 Dose: 999 mls/hr Vancomycin HCl 1 gm/ Sodium (Chloride) 250 mls @ 250 mls/hr IV ONETIME ONE Stop: 07/21/17 13:58 Last Admin: 07/21/17 15:39 Dose: 250 mls/hr Sodium Chloride (Normal Saline) 1,000 mls @ 999 mls/hr IV NOW STA Stop: 07/21/17 15:29 Last Admin: 07/21/17 15:31 Dose: 999 mls/hr Sodium Chloride (Normal Saline) 1,000 mls @ 125 mls/hr IV NOW STA Stop: 07/21/17 23:37 Last Admin: 07/21/17 15:38 Dose: 125 mls/hr Meropenem 1 gm/ Sodium (Chloride) 100 mls @ 200 mls/hr IV ONETIME ONE Stop: 07/21/17 16:49 Last Admin: 07/21/17 19:52 Dose: Not Given Meropenem 1 gm/ Sodium (Chloride) 100 mls @ 200 mls/hr IV ONETIME ONE Stop: 07/21/17 17:29 Last Admin: 07/21/17 17:20 Dose: 200 mls/hr Magnesium Sulfate 2 gm/ Premix 50 mls @ 50 mls/hr IV ONETIME ONE Stop: 07/21/17 18:55 Last Admin: 07/21/17 18:42 Dose: 50 mls/hr Sodium Chloride (Normal Saline) 1,000 mls @ 999 mls/hr IV ONETIME ONE Stop: 07/21/17 21:40 Last Admin: 07/21/17 20:58 Dose: 999 mls/hr Sodium Chloride (Normal Saline) 1,000 mls @ 999 mls/hr IV ONETIME ONE Stop: 07/22/17 04:47 Last Admin: 07/22/17 03:47 Dose: 999 mls/hr Norepinephrine Bitartrate 4 mg (/ Dextrose/Water) 250 mls @ 7.5 mls/hr IV TITRATE JOSE; 2 MCG/MIN PRN Reason: Protocol Norepinephrine Bitartrate (Norepinephr-0.9% Nacl 4 Mg/250) Confirm Administered Dose 250 mls @ as directed IV .STK-MED ONE Stop: 07/22/17 04:32 Last Admin: 07/22/17 05:27 Dose: Not Given Norepinephrine Bitartrate 4 mg (/ Sodium Chloride) 250 mls @ 7.5 mls/hr IV TITRATE JOSE; 2 MCG/MIN PRN Reason: Protocol Magnesium Sulfate 2 gm/ Premix 50 mls @ 50 mls/hr IV ONETIME ONE Stop: 07/22/17 08:55 Last Admin: 07/22/17 08:36 Dose: 50 mls/hr Iopamidol (Isovue Multipack-370 (76%)) 75 ml IVPUSH ONETIME STA Stop: 07/21/17 15:27 Last Admin: 07/21/17 15:27 Dose: 75 ml Loperamide HCl (Imodium) 2 mg PO DAILY JOSE Morphine Sulfate (Morphine) 2 mg IVPUSH Q6H PRN PRN Reason: Pain (severe 7-10) Stop: 07/22/17 17:20 Welbutrin 75 Mg 1 each PO DAILY JOSE - Exam General: Alert, Oriented Lungs: Clear to Auscultation, Normal Respiratory Effort Cardiovascular: Regular Rate, Regular Rhythm GI/Abdominal Exam: Normal Bowel Sounds, Soft, Non-Tender Extremities: Non-Tender, No Pedal Edema - Problem List Review Problem List Initiated/Reviewed/Updated: Yes - My Orders Last 24 Hours: My Active Orders 07/21/17 19:15 Sodium Chloride 0.9% [Normal Saline] 1,000 ml IV ASDIRECTED 07/21/17 21:43 Code Status [Resuscitation Status] Routine 07/22/17 08:30 Vancomycin [First-Vancomycin 25 Compounding Kit] 125 mg PO Q6H 07/22/17 08:53 Gabapentin [Neurontin] 600 mg PO TID 07/22/17 09:00 buPROPion [Wellbutrin XL] 150 mg PO DAILY - Plan Plan:: 67-year-old male being admitted with sepsis secondary to urinary tract infection /pyelonephritis: Sepsis resolving likely 2/2 to UTI and C.diff infection, patient does not appear toxic UTI: will continue broad spectrum antibiotics due to 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 Cdiff infection: will start oral vancomycin Acute kidney injury: improving, creatinine 1.5 DVT prophylaxis, lovenox
[2017-07-22] MEDS: Gabapentin 300 MG Cap PO SCH ×3 (09:19→21:01)
[2017-07-22] MEDS: oxyCODONE 5 MG Tab PO PRN (12:38)
[2017-07-22] MEDS: Enoxaparin 40 MG/0.4 ML Syringe SUBCUT SCH (17:49)
[2017-07-22] MEDS: QUEtiapine 25 MG Tab PO SCH (21:01)
[2017-07-22] MEDS: Thiamine 100 MG Tab PO SCH (21:01)
[2017-07-23] MEDS: Meropenem 1 GM in Sodium Chloride 0.9% 100 ML IV SCH ×3 (01:58→17:12)
[2017-07-23] MEDS: Vancomycin 25 MG/ML Compounding Kit PO SCH ×4 (02:33→21:16)
[2017-07-23] MEDS: Gabapentin 300 MG Cap PO SCH ×3 (05:37→21:04)
[2017-07-23 06:08] LABS: CHLORIDE,CL 106 mmol/L (98-110); SODIUM,NA 134 mmol/L (136-146)
[2017-07-23] MEDS ORDERED: Potassium Chloride 20 MEQ Tab.ER PO ONE (07:34)
[2017-07-23] MEDS ORDERED: Magnesium Sulfate/Water 2 GM in Premix Bag 1 BAG IV ONE (07:34)
[2017-07-23] MEDS: buPROPion 150 MG Tab.ER PO SCH (08:03)
[2017-07-23] MEDS: Folic Acid 1 MG Tab PO SCH (08:03)
[2017-07-23] MEDS: Aspirin 81 MG Tab.EC PO SCH (08:03)
[2017-07-23] MEDS: SACCHAROMYCES BOULARDII 500 MG PO SCH ×2 (08:04→08:11)
--- NOTE | 2017-07-23 08:08 | PCM.PN ---
- Review of Systems Systems Review Comment:: feeling well no complaints, no blood in stool - Patient Data Vitals - Most Recent: Last Vital Signs Temp 36.8 C 07/23/17 04:00 Pulse 67 07/21/17 12:53 Resp 14 07/23/17 07:00 BP 96/59 L 07/23/17 07:00 Pulse Ox 95 07/23/17 07:00 Weight - Most Recent: 79.1 kg I&O - Last 24 Hours: Intake & Output 07/22/17 07/23/17 07/23/17 22:59 06:59 14:59 Intake Total 2444 2498 Output Total 750 1350 Balance 1694 1148 Lab Results Last 24 Hours: Laboratory Results - last 24 hr 07/23/17 07/23/17 Range/Units 05:31 05:31 WBC 13.03 H (4.0-11.0) K/uL RBC 2.93 L (4.50-5.90) M/uL Hgb 8.3 L (13.0-17.0) g/dL Hct 25.0 L (38.0-50.0) % MCV 85.3 (80.0-98.0) fL MCH 28.3 (27.0-32.0) pg MCHC 33.2 (31.0-37.0) g/dL RDW Std Deviation 51.7 (28.0-62.0) fl RDW Coeff of Jeannie 17 H (11.0-15.0) % Plt Count 322 (150-400) K/uL MPV 8.90 (7.40-12.00) fL Add Manual Diff YES Neutrophils % (Manual) 76 (48.0-80.0) % Band Neutrophils % 4 % Lymphocytes % (Manual) 10 L (16.0-40.0) % Monocytes % (Manual) 6 (0.0-15.0) % Eosinophils % (Manual) 3 (0.0-7.0) % Basophils % (Manual) 1 (0.0-1.5) % Nucleated RBC % 0.0 /100WBC Absolute Seg Neuts 9.9 Band Neutrophils # 0.5 Lymphocytes # (Manual) 1.3 Monocytes # (Manual) 0.8 Eosinophils # (Manual) 0.4 Basophils # (Manual) 0 Nucleated RBCs # 0 K/uL Sodium 134 L (136-146) mmol/L Potassium 3.4 L (3.5-5.1) mmol/L Chloride 106 (98-110) mmol/L Carbon Dioxide 22 (21-31) mmol/L BUN 18 (6.0-23.0) mg/dL Creatinine 1.0 (0.6-1.5) mg/dL Est Cr Clr Drug Dosing 72.16 mL/min Estimated GFR (MDRD) > 60.0 ml/min Glucose 97 (60-110) mg/dL Calcium 7.8 L (8.8-10.8) mg/dL Phosphorus 2.6 (2.4-4.7) mg/dL Magnesium 1.2 L (1.5-2.3) mEq/L Total Bilirubin 0.2 (0.1-1.5) mg/dL AST 25 (5-40) IU/L ALT 16 (8-54) IU/L Alkaline Phosphatase 115 (40-150) Total Protein 4.8 L (6.0-8.0) g/dL Albumin 1.9 L (3.4-4.8) g/dL Globulin 2.9 (2.0-3.5) g/dL Albumin/Globulin Ratio 0.7 L (1.3-2.8) Lebron Results Last 24 Hours: Microbiology 07/21/17 19:55 Campylobacter Antigen Assay - Final Stool / Feces - Stool, Formed NEGATIVE CAMPYLOBACTER AG - Final NEGATIVE FOR SHIGA TOXIN 1 - Final NEGATIVE FOR SHIGA TOXIN 2 Med Orders - Current: Current Medications Acetaminophen (Tylenol) 650 mg PO Q6H PRN PRN Reason: Fever Albuterol (Proventil Neb Soln) 2.5 mg NEB BID PRN PRN Reason: Shortness of Breath Aspirin (Halfprin) 81 mg PO DAILY [facility] Last Admin: 07/22/17 08:41 Dose: 81 mg Bupropion HCl (Wellbutrin Xl) 150 mg PO DAILY [facility] Last Admin: 07/22/17 08:41 Dose: 150 mg Enoxaparin Sodium (Lovenox) 40 mg SUBCUT Q24H [facility] Last Admin: 07/22/17 17:49 Dose: 40 mg Folic Acid (Folic Acid) 1 mg PO DAILY [facility] Last Admin: 07/22/17 08:41 Dose: 1 mg Gabapentin (Neurontin) 600 mg PO TID [facility] Last Admin: 07/23/17 05:37 Dose: 600 mg Meropenem 1 gm/ Sodium (Chloride) 100 mls @ 200 mls/hr IV Q8H [facility] Last Admin: 07/23/17 01:58 Dose: 200 mls/hr Magnesium Sulfate 2 gm/ Premix 50 mls @ 50 mls/hr IV ONETIME ONE Stop: 07/23/17 08:33 Lorazepam (Ativan) 0 mg IVPUSH Q4H PRN; Protocol PRN Reason: Agitation Ondansetron HCl (Zofran Odt) 4 mg PO Q4H PRN PRN Reason: nausea, able to take PO Oxycodone HCl (Oxycodone) 5 mg PO Q4H PRN PRN Reason: Pain (moderate 4-6) Last Admin: 07/22/17 12:38 Dose: 5 mg Saccharomyces (Boulardii 500 Mg) 1 each PO DAILY [facility] Last Admin: 07/22/17 09:00 Dose: Not Given Quetiapine Fumarate (Seroquel) 25 mg PO BEDTIME [facility] Last Admin: 07/22/17 21:01 Dose: 25 mg Fluticasone/Salmeterol (Advair Diskus 250-50) 1 puff INH BID [facility] Last Admin: 07/22/17 21:37 Dose: 1 puff Sodium Chloride (Saline Flush) 10 ml FLUSH ASDIRECTED PRN PRN Reason: Keep Vein Open Sodium Chloride (Saline Flush) 2.5 ml FLUSH ASDIRECTED PRN PRN Reason: Keep Vein Open Thiamine HCl (Vitamin B-1) 100 mg PO BEDTIME [facility] Last Admin: 07/22/17 21:01 Dose: 100 mg Vancomycin HCl (First-Vancomycin 25 Compounding Kit) 125 mg PO Q6H [facility] Last Admin: 07/23/17 02:33 Dose: 125 mg Discontinued Medications Albuterol (Proventil Neb Soln) 2.5 mg NEB Q4HRRT PRN PRN Reason: Shortness Of Breath/wheezing Piperacillin Sod/Tazobactam (Sod 4.5 gm/ Sodium Chloride) 100 mls @ 100 mls/hr IV ONETIME ONE Stop: 07/21/17 13:59 Last Admin: 07/21/17 14:25 Dose: 100 mls/hr Sodium Chloride (Normal Saline) 1,000 mls @ 999 mls/hr IV STAT ONE Stop: 07/21/17 13:59 Last Admin: 07/21/17 13:52 Dose: 999 mls/hr Vancomycin HCl 1 gm/ Sodium (Chloride) 250 mls @ 250 mls/hr IV ONETIME ONE Stop: 07/21/17 13:58 Last Admin: 07/21/17 15:39 Dose: 250 mls/hr Sodium Chloride (Normal Saline) 1,000 mls @ 999 mls/hr IV NOW STA Stop: 07/21/17 15:29 Last Admin: 07/21/17 15:31 Dose: 999 mls/hr Sodium Chloride (Normal Saline) 1,000 mls @ 125 mls/hr IV NOW STA Stop: 07/21/17 23:37 Last Admin: 07/21/17 15:38 Dose: 125 mls/hr Meropenem 1 gm/ Sodium (Chloride) 100 mls @ 200 mls/hr IV ONETIME ONE Stop: 07/21/17 16:49 Last Admin: 07/21/17 19:52 Dose: Not Given Meropenem 1 gm/ Sodium (Chloride) 100 mls @ 200 mls/hr IV ONETIME ONE Stop: 07/21/17 17:29 Last Admin: 07/21/17 17:20 Dose: 200 mls/hr Meropenem 1 gm/ Sodium (Chloride) 100 mls @ 200 mls/hr IV Q8H [facility] Last Admin: 07/22/17 10:15 Dose: Not Given Piperacillin Sod/Tazobactam (Sod 3.375 gm/ Sodium Chloride) 50 mls @ 100 mls/ hr IV Q6H [facility] Last Admin: 07/22/17 08:34 Dose: 100 mls/hr Vancomycin HCl 1 gm/ Sodium (Chloride) 250 mls @ 166.667 mls/hr IV Q24H [facility] Magnesium Sulfate 2 gm/ Premix 50 mls @ 50 mls/hr IV ONETIME ONE Stop: 07/21/17 18:55 Last Admin: 07/21/17 18:42 Dose: 50 mls/hr Sodium Chloride (Normal Saline) 1,000 mls @ 125 mls/hr IV ASDIRECTED [facility] Last Admin: 07/22/17 23:45 Dose: 125 mls/hr Sodium Chloride (Normal Saline) 1,000 mls @ 999 mls/hr IV ONETIME ONE Stop: 07/21/17 21:40 Last Admin: 07/21/17 20:58 Dose: 999 mls/hr Sodium Chloride (Normal Saline) 1,000 mls @ 999 mls/hr IV ONETIME ONE Stop: 07/22/17 04:47 Last Admin: 07/22/17 03:47 Dose: 999 mls/hr Norepinephrine Bitartrate 4 mg (/ Dextrose/Water) 250 mls @ 7.5 mls/hr IV TITRATE JOSE; 2 MCG/MIN PRN Reason: Protocol Norepinephrine Bitartrate (Norepinephr-0.9% Nacl 4 Mg/250) Confirm Administered Dose 250 mls @ as directed IV .STK-MED ONE Stop: 07/22/17 04:32 Last Admin: 07/22/17 05:27 Dose: Not Given Norepinephrine Bitartrate 4 mg (/ Sodium Chloride) 250 mls @ 7.5 mls/hr IV TITRATE JOSE; 2 MCG/MIN PRN Reason: Protocol Norepinephrine Bitartrate (Norepinephr-0.9% Nacl 4 Mg/250) 250 mls @ 7.5 mls/ hr IV TITRATE JOSE; 2 MCG/MIN PRN Reason: Protocol Magnesium Sulfate 2 gm/ Premix 50 mls @ 50 mls/hr IV ONETIME ONE Stop: 07/22/17 08:55 Last Admin: 07/22/17 08:36 Dose: 50 mls/hr Iopamidol (Isovue Multipack-370 (76%)) 75 ml IVPUSH ONETIME STA Stop: 07/21/17 15:27 Last Admin: 07/21/17 15:27 Dose: 75 ml Loperamide HCl (Imodium) 2 mg PO DAILY [facility] Morphine Sulfate (Morphine) 2 mg IVPUSH Q6H PRN PRN Reason: Pain (severe 7-10) Stop: 07/22/17 17:20 Morphine Sulfate (Morphine) 2 mg IVPUSH Q6H PRN PRN Reason: Pain (severe 7-10) Stop: 07/22/17 17:20 Welbutrin 75 Mg 1 each PO DAILY [facility] Potassium Chloride (Klor-Con M20) 40 meq PO ONETIME ONE Stop: 07/23/17 07:35 Vancomycin HCl (Pharmacy To Dose - Vancomycin) 1 dose .XX ASDIRECTED [facility] - Exam General: Alert, Oriented Lungs: Clear to Auscultation, Normal Respiratory Effort Cardiovascular: Regular Rate, Regular Rhythm Extremities: Non-Tender, Pedal Edema Skin: Warm, Dry, Intact - Problem List Review Problem List Initiated/Reviewed/Updated: Yes - My Orders Last 24 Hours: My Active Orders 07/22/17 08:30 Vancomycin [First-Vancomycin 25 Compounding Kit] 125 mg PO Q6H 07/22/17 08:53 Gabapentin [Neurontin] 600 mg PO TID 07/22/17 09:00 buPROPion [Wellbutrin XL] 150 mg PO DAILY 07/23/17 07:34 Fecal Occult Blood Collection [RC] ASDIRECTED OCCULT BLOOD DIAGNOSTIC [OP] Routine Magnesium Sulfate/Water [Magnesium Sulfate 2 GM in Water 50 ML] 2 gm Premix Bag 1 bag IV ONETIME - Plan Plan:: 67-year-old male being admitted with sepsis secondary to urinary tract infection /pyelonephritis and c.diff infection Sepsis: resolving, will d/c IV fluids UTI: will continue meropenum due to 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 Cdiff infection: continue vancomycin Acute kidney injury: improving, creatinine 1.0 DVT prophylaxis, lovenox
[2017-07-23] MEDS: Fluticasone/Salmeterol 250-50 MCG Inhalation Powder 14/Diskus INH SCH ×2 (08:45→20:54)
[2017-07-23] MEDS: oxyCODONE 5 MG Tab PO PRN ×2 (13:02→18:51)
[2017-07-23] MEDS: Enoxaparin 40 MG/0.4 ML Syringe SUBCUT SCH (17:17)
[2017-07-23] MEDS: Thiamine 100 MG Tab PO SCH (21:03)
[2017-07-23] MEDS: QUEtiapine 25 MG Tab PO SCH (21:03)
[2017-07-24] MEDS: Meropenem 1 GM in Sodium Chloride 0.9% 100 ML IV SCH ×3 (01:22→18:11)
[2017-07-24] MEDS: Vancomycin 25 MG/ML Compounding Kit PO SCH ×4 (01:35→21:27)
[2017-07-24] MEDS: Gabapentin 300 MG Cap PO SCH ×3 (05:25→21:29)
[2017-07-24 05:58] LABS: CHLORIDE,CL 106 mmol/L (98-110); SODIUM,NA 136 mmol/L (136-146)
[2017-07-24] MEDS: buPROPion 150 MG Tab.ER PO SCH (08:09)
[2017-07-24] MEDS: Folic Acid 1 MG Tab PO SCH (08:09)
[2017-07-24] MEDS: Aspirin 81 MG Tab.EC PO SCH (08:09)
[2017-07-24] MEDS: SACCHAROMYCES BOULARDII 500 MG PO SCH (08:09)
[2017-07-24] MEDS: Fluticasone/Salmeterol 250-50 MCG Inhalation Powder 14/Diskus INH SCH ×2 (09:05→20:44)
[2017-07-24] MEDS: oxyCODONE 5 MG Tab PO PRN ×2 (09:31→21:35)
[2017-07-24] MEDS ORDERED: Magnesium Sulfate/Water 4 GM in Premix Bag 1 BAG IV ONE (10:35)
--- NOTE | 2017-07-24 10:37 | PCM.PN ---
- Review of Systems Systems Review Comment:: feeling well, no complaints - Patient Data Vitals - Most Recent: Last Vital Signs Temp 36.7 C 07/24/17 08:00 Pulse 90 07/24/17 08:00 Resp 20 07/24/17 08:00 BP 141/87 H 07/24/17 08:00 Pulse Ox 98 07/24/17 08:00 Weight - Most Recent: 79 kg I&O - Last 24 Hours: Intake & Output 07/23/17 07/24/17 07/24/17 22:59 06:59 14:59 Intake Total 1182 1330 Output Total 1250 1200 Balance -68 130 Lab Results Last 24 Hours: Laboratory Results - last 24 hr 07/24/17 07/24/17 Range/Units 05:25 05:25 WBC 10.50 (4.0-11.0) K/uL RBC 3.19 L (4.50-5.90) M/uL Hgb 8.9 L (13.0-17.0) g/dL Hct 27.4 L (38.0-50.0) % MCV 85.9 (80.0-98.0) fL MCH 27.9 (27.0-32.0) pg MCHC 32.5 (31.0-37.0) g/dL RDW Std Deviation 51.9 (28.0-62.0) fl RDW Coeff of Jeannie 16 H (11.0-15.0) % Plt Count 363 (150-400) K/uL MPV 8.50 (7.40-12.00) fL Add Manual Diff YES Neutrophils % (Manual) 66 (48.0-80.0) % Band Neutrophils % 4 % Lymphocytes % (Manual) 20 (16.0-40.0) % Monocytes % (Manual) 2 (0.0-15.0) % Eosinophils % (Manual) 7 (0.0-7.0) % Basophils % (Manual) 1 (0.0-1.5) % Nucleated RBC % 0.0 /100WBC Absolute Seg Neuts 6.9 Band Neutrophils # 0.4 Lymphocytes # (Manual) 2.1 Monocytes # (Manual) 0.2 Eosinophils # (Manual) 0.7 Basophils # (Manual) 0 Nucleated RBCs # 0 K/uL Sodium 136 (136-146) mmol/L Potassium 4.0 (3.5-5.1) mmol/L Chloride 106 (98-110) mmol/L Carbon Dioxide 24 (21-31) mmol/L BUN 11 (6.0-23.0) mg/dL Creatinine 0.8 (0.6-1.5) mg/dL Est Cr Clr Drug Dosing 90.20 mL/min Estimated GFR (MDRD) > 60.0 ml/min Glucose 97 (60-110) mg/dL Calcium 8.0 L (8.8-10.8) mg/dL Phosphorus 2.4 (2.4-4.7) mg/dL Magnesium 1.2 L (1.5-2.3) mEq/L Total Bilirubin 0.2 (0.1-1.5) mg/dL AST 21 (5-40) IU/L ALT 18 (8-54) IU/L Alkaline Phosphatase 124 (40-150) Total Protein 5.2 L (6.0-8.0) g/dL Albumin 2.1 L (3.4-4.8) g/dL Globulin 3.1 (2.0-3.5) g/dL Albumin/Globulin Ratio 0.7 L (1.3-2.8) Lebron Results Last 24 Hours: Microbiology 07/21/17 17:30 Urine Culture - Final Urine, Voided Klebsiella Pneumoniae Normal Urogenital [place] 07/21/17 19:55 Stool Culture - Final Stool / Feces - Stool, Formed NO SALMONELLA, SHIGELLA,OR E.COLI O157 ISOLATED Campylobacter Antigen Assay - Final NEGATIVE CAMPYLOBACTER AG - Final NEGATIVE FOR SHIGA TOXIN 1 - Final NEGATIVE FOR SHIGA TOXIN 2 07/23/17 11:30 Stool Occult Blood (LEBRON) - Final Stool / Feces NEGATIVE OCCULT BLOOD Med Orders - Current: Current Medications Acetaminophen (Tylenol) 650 mg PO Q6H PRN PRN Reason: Fever Albuterol (Proventil Neb Soln) 2.5 mg NEB BID PRN PRN Reason: Shortness of Breath Aspirin (Halfprin) 81 mg PO DAILY [facility] Last Admin: 07/24/17 08:09 Dose: 81 mg Bupropion HCl (Wellbutrin Xl) 150 mg PO DAILY [facility] Last Admin: 07/24/17 08:09 Dose: 150 mg Enoxaparin Sodium (Lovenox) 40 mg SUBCUT Q24H [facility] Last Admin: 07/23/17 17:17 Dose: 40 mg Folic Acid (Folic Acid) 1 mg PO DAILY [facility] Last Admin: 07/24/17 08:09 Dose: 1 mg Gabapentin (Neurontin) 600 mg PO TID [facility] Last Admin: 07/24/17 05:25 Dose: 600 mg Meropenem 1 gm/ Sodium (Chloride) 100 mls @ 200 mls/hr IV Q8H [facility] Last Admin: 07/24/17 01:22 Dose: 200 mls/hr Lorazepam (Ativan) 0 mg IVPUSH Q4H PRN; Protocol PRN Reason: Agitation Ondansetron HCl (Zofran Odt) 4 mg PO Q4H PRN PRN Reason: nausea, able to take PO Oxycodone HCl (Oxycodone) 5 mg PO Q4H PRN PRN Reason: Pain (moderate 4-6) Last Admin: 07/24/17 09:31 Dose: 5 mg Saccharomyces Boulardii 500 Mg ( Probiotic) 1 each PO DAILY [facility] Last Admin: 07/24/17 08:09 Dose: 1 each Quetiapine Fumarate (Seroquel) 25 mg PO BEDTIME [facility] Last Admin: 07/23/17 21:03 Dose: 25 mg Fluticasone/Salmeterol (Advair Diskus 250-50) 1 puff INH BID [facility] Last Admin: 07/24/17 09:05 Dose: 1 puff Sodium Chloride (Saline Flush) 10 ml FLUSH ASDIRECTED PRN PRN Reason: Keep Vein Open Sodium Chloride (Saline Flush) 2.5 ml FLUSH ASDIRECTED PRN PRN Reason: Keep Vein Open Thiamine HCl (Vitamin B-1) 100 mg PO BEDTIME [facility] Last Admin: 07/23/17 21:03 Dose: 100 mg Vancomycin HCl (First-Vancomycin 25 Compounding Kit) 125 mg PO Q6H [facility] Last Admin: 07/24/17 08:09 Dose: 125 mg Discontinued Medications Albuterol (Proventil Neb Soln) 2.5 mg NEB Q4HRRT PRN PRN Reason: Shortness Of Breath/wheezing Piperacillin Sod/Tazobactam (Sod 4.5 gm/ Sodium Chloride) 100 mls @ 100 mls/hr IV ONETIME ONE Stop: 07/21/17 13:59 Last Admin: 07/21/17 14:25 Dose: 100 mls/hr Sodium Chloride (Normal Saline) 1,000 mls @ 999 mls/hr IV STAT ONE Stop: 07/21/17 13:59 Last Admin: 07/21/17 13:52 Dose: 999 mls/hr Vancomycin HCl 1 gm/ Sodium (Chloride) 250 mls @ 250 mls/hr IV ONETIME ONE Stop: 07/21/17 13:58 Last Admin: 07/21/17 15:39 Dose: 250 mls/hr Sodium Chloride (Normal Saline) 1,000 mls @ 999 mls/hr IV NOW STA Stop: 07/21/17 15:29 Last Admin: 07/21/17 15:31 Dose: 999 mls/hr Sodium Chloride (Normal Saline) 1,000 mls @ 125 mls/hr IV NOW STA Stop: 07/21/17 23:37 Last Admin: 07/21/17 15:38 Dose: 125 mls/hr Meropenem 1 gm/ Sodium (Chloride) 100 mls @ 200 mls/hr IV ONETIME ONE Stop: 07/21/17 16:49 Last Admin: 07/21/17 19:52 Dose: Not Given Meropenem 1 gm/ Sodium (Chloride) 100 mls @ 200 mls/hr IV ONETIME ONE Stop: 07/21/17 17:29 Last Admin: 07/21/17 17:20 Dose: 200 mls/hr Meropenem 1 gm/ Sodium (Chloride) 100 mls @ 200 mls/hr IV Q8H [facility] Last Admin: 07/22/17 10:15 Dose: Not Given Piperacillin Sod/Tazobactam (Sod 3.375 gm/ Sodium Chloride) 50 mls @ 100 mls/ hr IV Q6H [facility] Last Admin: 07/22/17 08:34 Dose: 100 mls/hr Vancomycin HCl 1 gm/ Sodium (Chloride) 250 mls @ 166.667 mls/hr IV Q24H [facility] Magnesium Sulfate 2 gm/ Premix 50 mls @ 50 mls/hr IV ONETIME ONE Stop: 07/21/17 18:55 Last Admin: 07/21/17 18:42 Dose: 50 mls/hr Sodium Chloride (Normal Saline) 1,000 mls @ 125 mls/hr IV ASDIRECTED [facility] Last Admin: 07/22/17 23:45 Dose: 125 mls/hr Sodium Chloride (Normal Saline) 1,000 mls @ 999 mls/hr IV ONETIME ONE Stop: 07/21/17 21:40 Last Admin: 07/21/17 20:58 Dose: 999 mls/hr Sodium Chloride (Normal Saline) 1,000 mls @ 999 mls/hr IV ONETIME ONE Stop: 07/22/17 04:47 Last Admin: 07/22/17 03:47 Dose: 999 mls/hr Norepinephrine Bitartrate 4 mg (/ Dextrose/Water) 250 mls @ 7.5 mls/hr IV TITRATE JOSE; 2 MCG/MIN PRN Reason: Protocol Norepinephrine Bitartrate (Norepinephr-0.9% Nacl 4 Mg/250) Confirm Administered Dose 250 mls @ as directed IV .STK-MED ONE Stop: 07/22/17 04:32 Last Admin: 07/22/17 05:27 Dose: Not Given Norepinephrine Bitartrate 4 mg (/ Sodium Chloride) 250 mls @ 7.5 mls/hr IV TITRATE JOSE; 2 MCG/MIN PRN Reason: Protocol Norepinephrine Bitartrate (Norepinephr-0.9% Nacl 4 Mg/250) 250 mls @ 7.5 mls/ hr IV TITRATE JOSE; 2 MCG/MIN PRN Reason: Protocol Magnesium Sulfate 2 gm/ Premix 50 mls @ 50 mls/hr IV ONETIME ONE Stop: 07/22/17 08:55 Last Admin: 07/22/17 08:36 Dose: 50 mls/hr Magnesium Sulfate 2 gm/ Premix 50 mls @ 50 mls/hr IV ONETIME ONE Stop: 07/23/17 08:33 Last Admin: 07/23/17 08:03 Dose: 50 mls/hr Iopamidol (Isovue Multipack-370 (76%)) 75 ml IVPUSH ONETIME STA Stop: 07/21/17 15:27 Last Admin: 07/21/17 15:27 Dose: 75 ml Loperamide HCl (Imodium) 2 mg PO DAILY [facility] Morphine Sulfate (Morphine) 2 mg IVPUSH Q6H PRN PRN Reason: Pain (severe 7-10) Stop: 07/22/17 17:20 Morphine Sulfate (Morphine) 2 mg IVPUSH Q6H PRN PRN Reason: Pain (severe 7-10) Stop: 07/22/17 17:20 Welbutrin 75 Mg 1 each PO DAILY [facility] Potassium Chloride (Klor-Con M20) 40 meq PO ONETIME ONE Stop: 07/23/17 07:35 Last Admin: 07/23/17 08:03 Dose: 40 meq Vancomycin HCl (Pharmacy To Dose - Vancomycin) 1 dose .XX ASDIRECTED JO[facility] - Exam General: Alert, Oriented Lungs: Clear to Auscultation, Normal Respiratory Effort Cardiovascular: Regular Rate, Regular Rhythm GI/Abdominal Exam: Normal Bowel Sounds, Soft, Non-Tender, No Distention Extremities: Normal Inspection Skin: Warm, Dry, Intact - Problem List Review Problem List Initiated/Reviewed/Updated: Yes - My Orders Last 24 Hours: My Active Orders 07/23/17 11:34 Transfer Patient (Change bed) [ADT] Routine 07/24/17 10:32 PICC Line Insertion [CR] Routine - Plan Plan:: 67-year-old male being admitted with sepsis secondary to urinary tract infection /pyelonephritis and c.diff infection ESBL Kleibsella UTI: will continue meropenum will place PICC Cdiff infection: continue oral vancomycin Acute kidney injury: improving, creatinine 1.0 Hypomagnesia: replacing DVT prophylaxis, lovenox
[2017-07-24] MEDS: Enoxaparin 40 MG/0.4 ML Syringe SUBCUT SCH (17:34)
[2017-07-24] MEDS: Thiamine 100 MG Tab PO SCH (21:28)
[2017-07-24] MEDS: QUEtiapine 25 MG Tab PO SCH (21:29)
[2017-07-25] MEDS: Meropenem 1 GM in Sodium Chloride 0.9% 100 ML IV SCH (01:15)
[2017-07-25] MEDS: Vancomycin 25 MG/ML Compounding Kit PO SCH ×2 (01:31→08:47)
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
[2017-07-25] MEDS: Gabapentin 300 MG Cap PO SCH (06:05)
[2017-07-25] MEDS: oxyCODONE 5 MG Tab PO PRN (06:48)
[2017-07-25 08:38] VITALS: BP 95/59
[2017-07-25] MEDS: Folic Acid 1 MG Tab PO SCH (08:47)
[2017-07-25] MEDS: Aspirin 81 MG Tab.EC PO SCH (08:47)
[2017-07-25] MEDS: buPROPion 150 MG Tab.ER PO SCH (08:47)
--- NOTE | 2017-07-25 09:35 | US ---
EXAMINATION: Fluoro and ultrasound guided right-sided PICC line placement. HISTORY: Long-term antibiotics. TECHNIQUE/FINDINGS: After written informed consent was obtained from the patient using ultrasound an d Fluoro guidance under aseptic conditions utilizing 1% lidocaine as local anesthesia right basilic v ein was accessed and 5 [place] PICC catheter was deployed with its tip in the distal superior vena cav a. The catheter flushes and withdraws blood well. The catheter is flushed with the diluted heparin. The catheter secured well. IMPRESSION: Successful Fluoro and ultrasound guided PICC line placement.
[2017-07-25] MEDS: Fluticasone/Salmeterol 250-50 MCG Inhalation Powder 14/Diskus INH SCH (09:38)
== END 2017-07-25 10:56 | disposition home or self-care (01) | DRG 872 ==
LOC: MW.ED 12:49 → MW.ICU 16:29 → MW.MS 07-24 15:52
PROVIDERS: ADMIT Internal Medicine; ATTEND Internal Medicine
PROC: 02HV33Z Insertion of Infusion Device into Superior Vena Cava, Percutaneous Approach (ICD-10-PCS; principal; 2017-07-24)
DX: A41.9 Sepsis, unspecified organism (principal); N39.0 Urinary tract infection, site not specified; D72.829 Elevated white blood cell count, unspecified; A04.7 Enterocolitis due to Clostridium difficile; I10 Essential (primary) hypertension; N17.9 Acute kidney failure, unspecified; G62.9 Polyneuropathy, unspecified; N12 Tubulo-interstitial nephritis, not specified as acute or chronic; E87.1 Hypo-osmolality and hyponatremia; B96.1 Klebsiella pneumoniae [K. pneumoniae] as the cause of diseases classified elsewhere; J44.9 Chronic obstructive pulmonary disease, unspecified; I48.91 Unspecified atrial fibrillation; R53.1 Weakness; E78.00 Pure hypercholesterolemia, unspecified; F10.10 Alcohol abuse, uncomplicated; E87.5 Hyperkalemia; E83.42 Hypomagnesemia; E86.0 Dehydration; Z79.899 Other long term (current) drug therapy; Z88.8 Allergy status to other drugs, medicaments and biological substances
CPT/HCPCS: 36415; 70450; 71010; 71260; 74177; 80053; 82140; 82150; 83605; 83735; 83880; 84100; 84443; 84484; 85025; 85610; 87040 ×2; 93005; 96360; 96361; 96365; 96367; 99285; G0480; J2543; J3370; J7040 ×3; Q9967; 36569; 76937; 76937-26; 77001; 77001-26; 80305; 81001; 82272; 87046; 87086; 87088; 87186; 87324; 87899; 94640; 94664; 99284; A9270-GY; J1650; J2185; J3475; J7030; J7050

== ENCOUNTER 2017-11-24 19:55 | Inpatient (IN) | payer MEDICARE, OTHER ==
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
[2017-11-24] MEDS ORDERED: Sodium Chloride 0.9% 2.5 ML Syringe FLUSH PRN (20:33)
[2017-11-24] MEDS ORDERED: Sodium Chloride 0.9% 10 ML Syringe FLUSH PRN (20:33)
[2017-11-24 21:14] LABS: CHLORIDE,CL 101 mmol/L (98-110); SODIUM,NA 132 mmol/L (136-146)
[2017-11-24] MEDS: Sodium Chloride 0.9% 1,000 ML IV SCH (21:33)
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
[2017-11-25] MEDS: Acetaminophen 500 MG Tab PO PRN ×3 (01:32→22:22)
[2017-11-25] MEDS: Gabapentin 300 MG Cap PO SCH ×5 (01:32→23:51)
[2017-11-25] MEDS: Meropenem 1 GM in Sodium Chloride 0.9% 100 ML IV SCH ×3 (01:39→16:29)
[2017-11-25] MEDS: Sodium Chloride 0.9% 1,000 ML IV SCH ×2 (06:45→16:20)
[2017-11-25] MEDS: Aspirin 81 MG Tab.EC PO SCH (08:31)
[2017-11-25] MEDS: Tamsulosin 0.4 MG Cap.ER PO SCH (08:31)
[2017-11-25] MEDS: atorvaSTATin 20 MG Tab PO SCH (08:31)
[2017-11-25] MEDS: Carvedilol 3.125 MG Tab PO SCH ×2 (08:31→16:27)
[2017-11-25] MEDS: buPROPion 150 MG Tab.ER PO SCH (08:32)
[2017-11-25] MEDS ORDERED: Enoxaparin 40 MG/0.4 ML Syringe SUBCUT SCH (09:00)
--- NOTE | 2017-11-25 18:11 | PCM.PN ---
- Review of Systems Systems Review Comment:: feeling well, no fevers, no abdominal pain, no diarrhea - Patient Data Vitals - Most Recent: Last Vital Signs Temp 36.7 C 11/25/17 16:00 Pulse 87 11/25/17 16:27 Resp 22 H 11/25/17 16:00 BP 118/64 11/25/17 16:27 Pulse Ox 97 11/25/17 16:00 Weight - Most Recent: 85 kg I&O - Last 24 Hours: Intake & Output 11/25/17 11/25/17 11/25/17 06:59 14:59 22:59 Intake Total 127 827 0723 Output Total 5 Balance 726 827 2308 Lab Results Last 24 Hours: Laboratory Results - last 24 hr 11/25/17 11/25/17 Range/Units 05:27 05:27 WBC 20.96 H (4.0-11.0) K/uL RBC 3.37 L (4.50-5.90) M/uL Hgb 9.8 L (13.0-17.0) g/dL Hct 30.3 L (38.0-50.0) % MCV 89.9 (80.0-98.0) fL MCH 29.1 (27.0-32.0) pg MCHC 32.3 (31.0-37.0) g/dL RDW Std Deviation 53.9 (28.0-62.0) fl RDW Coeff of Jeannie 16 H (11.0-15.0) % Plt Count 226 (150-400) K/uL MPV 8.40 (7.40-12.00) fL Add Manual Diff YES Neutrophils % (Manual) 79 (48.0-80.0) % Band Neutrophils % 3 % Lymphocytes % (Manual) 9 L (16.0-40.0) % Monocytes % (Manual) 6 (0.0-15.0) % Nucleated RBC % 0.0 /100WBC Absolute Seg Neuts 16.6 H (1.4-5.7) Band Neutrophils # 0.6 Lymphocytes # (Manual) 1.9 (0.6-2.4) Monocytes # (Manual) 1.3 H (0.0-0.8) Nucleated RBCs # 0 K/uL Sodium 137 (136-146) mmol/L Potassium 4.8 (3.5-5.1) mmol/L Chloride 106 (98-110) mmol/L Carbon Dioxide 25 (21-31) mmol/L BUN 22 (6.0-23.0) mg/dL Creatinine 1.3 (0.6-1.5) mg/dL Est Cr Clr Drug Dosing 57.12 mL/min Estimated GFR (MDRD) 54.7 ml/min Glucose 86 (60-110) mg/dL Calcium 8.0 L (8.8-10.8) mg/dL Med Orders - Current: Current Medications Acetaminophen (Tylenol Extra Strength) 1,000 mg PO TID PRN PRN Reason: Pain Last Admin: 11/25/17 09:07 Dose: 1,000 mg Aspirin (Halfprin) 81 mg PO DAILY [facility] Last Admin: 11/25/17 08:31 Dose: 81 mg Atorvastatin Calcium (Lipitor) 20 mg PO DAILY [facility] Last Admin: 11/25/17 08:31 Dose: 20 mg Bupropion HCl (Wellbutrin Xl) 150 mg PO DAILY [facility] Last Admin: 11/25/17 08:32 Dose: 150 mg Carvedilol (Coreg) 3.125 mg PO BIDMEALS [facility] Last Admin: 11/25/17 16:27 Dose: 3.125 mg Gabapentin (Neurontin) 600 mg PO QID [facility] Last Admin: 11/25/17 17:11 Dose: 600 mg Sodium Chloride (Normal Saline) 1,000 mls @ 125 mls/hr IV STAT [facility] Last Admin: 11/25/17 16:20 Dose: 125 mls/hr Meropenem 1 gm/ Sodium (Chloride) 100 mls @ 200 mls/hr IV Q8H [facility] Last Admin: 11/25/17 16:29 Dose: 200 mls/hr Amikacin Sulfate 400 mg/ (Sodium Chloride) 101.6 mls @ 100.594 mls/hr IV Q8H [facility] Last Admin: 11/25/17 17:10 Dose: 100.594 mls/hr Amikacin Pharmacy To (Dose) 0 each IVPUSH ASDIRECTED [facility] Sodium Chloride (Saline Flush) 10 ml FLUSH ASDIRECTED PRN PRN Reason: Keep Vein Open Sodium Chloride (Saline Flush) 2.5 ml FLUSH ASDIRECTED PRN PRN Reason: Keep Vein Open Tamsulosin HCl (Flomax) 0.4 mg PO DAILY [facility] Last Admin: 11/25/17 08:31 Dose: 0.4 mg Discontinued Medications Enoxaparin Sodium (Lovenox) 40 mg SUBCUT DAILY [facility] Amikacin Sulfate 400 mg/ (Dextrose/Water) 101.6 mls @ 100.594 mls/hr IV Q8H [facility] Last Admin: 11/25/17 02:18 Dose: 100.594 mls/hr - Problem List Review Problem List Initiated/Reviewed/Updated: Yes - My Orders Last 24 Hours: My Active Orders 11/27/17 05:11 CBC WITH AUTO DIFF [HEME] AM COMPREHENSIVE METABOLIC PN,CMP [CHEM] AM 11/28/17 05:11 CBC WITH AUTO DIFF [HEME] AM COMPREHENSIVE METABOLIC PN,CMP [CHEM] AM 11/25/17 00:15 Non-Formulary Medication [NF Drug] See Dose Instructions IVPUSH ASDIRECTED 11/25/17 00:18 Acetaminophen [Tylenol Extra Strength] 1,000 mg PO TID PRN 11/25/17 00:30 Gabapentin [Neurontin] 600 mg PO QID 11/25/17 01:00 Meropenem [Merrem] 1 gm Sodium Chloride 0.9% [Normal Saline] 100 ml IV Q8H 11/25/17 01:07 Up ad Lilibeth [RC] ASDIRECTED VTE/DVT Education [RC] PER UNIT ROUTINE Vital Signs [RC] Q4H Resuscitation Status Routine 11/25/17 01:08 Antiembolic Devices [RC] PER UNIT ROUTINE Sequential Compression Device [OM.PC] Per Unit Routine 11/25/17 08:00 Carvedilol [Coreg] 3.125 mg PO BIDMEALS 11/25/17 09:00 Aspirin [Halfprin] 81 mg PO DAILY Tamsulosin [Flomax] 0.4 mg PO DAILY atorvaSTATin [Lipitor] 20 mg PO DAILY buPROPion [Wellbutrin XL] 150 mg PO DAILY 11/25/17 09:30 Amikacin 400 mg Sodium Chloride 0.9% [Normal Saline] 100 ml IV Q8H 11/25/17 17:59 Obtain Past Medical Record [OM.PC] Routine 11/25/17 Breakfast Regular Diet [DIET] 11/26/17 05:11 CBC WITH AUTO DIFF [HEME] AM COMPREHENSIVE METABOLIC PN,CMP [CHEM] AM - Plan Plan:: 67 yo male admitted for UTI. Due to history of ESBL klebseilla will continue meropenem and await urine cultures. WBC is 20,920. We will try to obtain urine culture from [facility] that reportedly was only sensitive to Amikacin.
[2017-11-26] MEDS: Meropenem 1 GM in Sodium Chloride 0.9% 100 ML IV SCH ×3 (01:16→16:18)
[2017-11-26] MEDS: Sodium Chloride 0.9% 1,000 ML IV SCH ×3 (01:44→19:51)
[2017-11-26] MEDS: Acetaminophen 500 MG Tab PO PRN ×2 (06:30→19:19)
[2017-11-26] MEDS: Gabapentin 300 MG Cap PO SCH ×4 (06:36→23:45)
[2017-11-26] MEDS: atorvaSTATin 20 MG Tab PO SCH (08:08)
[2017-11-26] MEDS: buPROPion 150 MG Tab.ER PO SCH (08:08)
[2017-11-26] MEDS: Tamsulosin 0.4 MG Cap.ER PO SCH (08:09)
[2017-11-26] MEDS: Aspirin 81 MG Tab.EC PO SCH (08:09)
[2017-11-26] MEDS: Carvedilol 3.125 MG Tab PO SCH ×2 (08:16→16:06)
--- NOTE | 2017-11-26 11:53 | PCM.PN ---
- Review of Systems Systems Review Comment:: feeling well no complaints, no diarrhea - Patient Data Vitals - Most Recent: Last Vital Signs Temp 36.7 C 11/26/17 07:52 Pulse 88 11/26/17 08:16 Resp 16 11/26/17 07:52 BP 112/65 11/26/17 08:16 Pulse Ox 95 11/26/17 07:52 Weight - Most Recent: 85 kg I&O - Last 24 Hours: Intake & Output 11/25/17 11/26/17 11/26/17 22:59 06:59 14:59 Intake Total 2675 600 100 Output Total 5 850 Balance 2670 -250 100 Lab Results Last 24 Hours: Laboratory Results - last 24 hr 11/26/17 11/26/17 Range/Units 06:01 06:01 WBC 15.43 H (4.0-11.0) K/uL RBC 3.08 L (4.50-5.90) M/uL Hgb 9.0 L (13.0-17.0) g/dL Hct 27.2 L (38.0-50.0) % MCV 88.3 (80.0-98.0) fL MCH 29.2 (27.0-32.0) pg MCHC 33.1 (31.0-37.0) g/dL RDW Std Deviation 52.6 (28.0-62.0) fl RDW Coeff of Jeannie 16 H (11.0-15.0) % Plt Count 279 (150-400) K/uL MPV 8.40 (7.40-12.00) fL Add Manual Diff YES Neutrophils % (Manual) 83 H (48.0-80.0) % Band Neutrophils % 3 % Lymphocytes % (Manual) 3 L (16.0-40.0) % Monocytes % (Manual) 8 (0.0-15.0) % Eosinophils % (Manual) 2 (0.0-7.0) % Basophils % (Manual) 1 (0.0-1.5) % Nucleated RBC % 0.0 /100WBC Absolute Seg Neuts 12.8 H (1.4-5.7) Band Neutrophils # 0.5 Lymphocytes # (Manual) 0.5 L (0.6-2.4) Monocytes # (Manual) 1.2 H (0.0-0.8) Eosinophils # (Manual) 0.3 (0.0-0.7) Basophils # (Manual) 0.2 H (0.0-0.1) Nucleated RBCs # 0 K/uL Sodium 138 (136-146) mmol/L Potassium 4.3 (3.5-5.1) mmol/L Chloride 110 (98-110) mmol/L Carbon Dioxide 21 (21-31) mmol/L BUN 21 (6.0-23.0) mg/dL Creatinine 1.5 (0.6-1.5) mg/dL Est Cr Clr Drug Dosing 49.50 mL/min Estimated GFR (MDRD) 46.4 ml/min Glucose 74 (60-110) mg/dL Calcium 8.2 L (8.8-10.8) mg/dL Total Bilirubin 0.4 (0.1-1.5) mg/dL AST 15 (5-40) IU/L ALT 15 (8-54) IU/L Alkaline Phosphatase 217 H (40-150) Total Protein 5.2 L (6.0-8.0) g/dL Albumin 2.3 L (3.4-4.8) g/dL Globulin 2.9 (2.0-3.5) g/dL Albumin/Globulin Ratio 0.8 L (1.3-2.8) Med Orders - Current: Current Medications Acetaminophen (Tylenol Extra Strength) 1,000 mg PO TID PRN PRN Reason: Pain Last Admin: 11/26/17 06:30 Dose: 1,000 mg Aspirin (Halfprin) 81 mg PO DAILY [facility] Last Admin: 11/26/17 08:09 Dose: 81 mg Atorvastatin Calcium (Lipitor) 20 mg PO DAILY [facility] Last Admin: 11/26/17 08:08 Dose: 20 mg Bupropion HCl (Wellbutrin Xl) 150 mg PO DAILY [facility] Last Admin: 11/26/17 08:08 Dose: 150 mg Carvedilol (Coreg) 3.125 mg PO BIDMEALS [facility] Last Admin: 11/26/17 08:16 Dose: 3.125 mg Gabapentin (Neurontin) 600 mg PO QID [facility] Last Admin: 11/26/17 06:36 Dose: 600 mg Sodium Chloride (Normal Saline) 1,000 mls @ 125 mls/hr IV STAT [facility] Last Admin: 11/26/17 10:44 Dose: 125 mls/hr Meropenem 1 gm/ Sodium (Chloride) 100 mls @ 200 mls/hr IV Q8H [facility] Last Admin: 11/26/17 08:16 Dose: 200 mls/hr Amikacin Sulfate 400 mg/ (Sodium Chloride) 101.6 mls @ 100 mls/hr IV Q24H [facility] Amikacin Pharmacy To (Dose) 0 each IVPUSH ASDIRECTED [facility] Sodium Chloride (Saline Flush) 10 ml FLUSH ASDIRECTED PRN PRN Reason: Keep Vein Open Sodium Chloride (Saline Flush) 2.5 ml FLUSH ASDIRECTED PRN PRN Reason: Keep Vein Open Tamsulosin HCl (Flomax) 0.4 mg PO DAILY [facility] Last Admin: 11/26/17 08:09 Dose: 0.4 mg Discontinued Medications Enoxaparin Sodium (Lovenox) 40 mg SUBCUT DAILY [facility] Amikacin Sulfate 400 mg/ (Dextrose/Water) 101.6 mls @ 100.594 mls/hr IV Q8H [facility] Last Admin: 11/25/17 02:18 Dose: 100.594 mls/hr Amikacin Sulfate 400 mg/ (Sodium Chloride) 101.6 mls @ 100 mls/hr IV Q8H [facility] Last Admin: 11/26/17 10:23 Dose: Not Given Amikacin Sulfate 350 mg/ (Sodium Chloride) 101.4 mls @ 99.792 mls/hr IV Q24H [facility] - Exam General: Alert, Oriented Lungs: Clear to Auscultation, Normal Respiratory Effort GI/Abdominal Exam: Soft, Non-Tender Extremities: No Pedal Edema Skin: Warm, Dry, Intact - Problem List Review Problem List Initiated/Reviewed/Updated: Yes - My Orders Last 24 Hours: My Active Orders 11/27/17 01:30 Amikacin 400 mg Sodium Chloride 0.9% [Normal Saline] 100 ml IV Q24H 11/27/17 05:11 CBC WITH AUTO DIFF [HEME] AM COMPREHENSIVE METABOLIC PN,CMP [CHEM] AM 11/28/17 05:11 CBC WITH AUTO DIFF [HEME] AM COMPREHENSIVE METABOLIC PN,CMP [CHEM] AM 11/25/17 17:59 Obtain Past Medical Record [OM.PC] Routine - Plan Plan:: 67 yo male admitted for UTI. Due to history of ESBL klebseilla will empirically treat with meropenem. [facility] [address] urine culture were only sensitive amikacin but carbapenums were not tested. Will continue amikacin while awaiting repeat cultures.
[2017-11-27] MEDS: Meropenem 1 GM in Sodium Chloride 0.9% 100 ML IV SCH ×3 (00:38→16:53)
[2017-11-27] MEDS: Acetaminophen 500 MG Tab PO PRN (03:21)
[2017-11-27] MEDS: Sodium Chloride 0.9% 1,000 ML IV SCH ×2 (05:46→14:11)
[2017-11-27] MEDS: Gabapentin 300 MG Cap PO SCH ×3 (05:50→18:51)
[2017-11-27] MEDS: atorvaSTATin 20 MG Tab PO SCH (08:28)
[2017-11-27] MEDS: Carvedilol 3.125 MG Tab PO SCH ×2 (08:28→16:54)
[2017-11-27] MEDS: Aspirin 81 MG Tab.EC PO SCH (08:29)
[2017-11-27] MEDS: Tamsulosin 0.4 MG Cap.ER PO SCH (08:29)
[2017-11-27] MEDS: buPROPion 150 MG Tab.ER PO SCH (08:29)
--- NOTE | 2017-11-27 14:56 | PCM.PN ---
- Review of Systems Systems Review Comment:: no complaints - Patient Data Vitals - Most Recent: Last Vital Signs Temp 36.6 C 11/27/17 11:39 Pulse 90 11/27/17 11:39 Resp 18 11/27/17 11:39 BP 146/81 H 11/27/17 11:39 Pulse Ox 93 L 11/27/17 11:39 Weight - Most Recent: 85 kg I&O - Last 24 Hours: Intake & Output 11/26/17 11/27/17 11/27/17 22:59 06:59 14:59 Intake Total 2166 2209 100 Balance 2166 2209 100 Lab Results Last 24 Hours: Laboratory Results - last 24 hr 11/27/17 11/27/17 Range/Units 06:30 06:30 WBC 12.63 H (4.0-11.0) K/uL RBC 3.21 L (4.50-5.90) M/uL Hgb 9.2 L (13.0-17.0) g/dL Hct 28.4 L (38.0-50.0) % MCV 88.5 (80.0-98.0) fL MCH 28.7 (27.0-32.0) pg MCHC 32.4 (31.0-37.0) g/dL RDW Std Deviation 52.7 (28.0-62.0) fl RDW Coeff of Jeannie 16 H (11.0-15.0) % Plt Count 304 (150-400) K/uL MPV 8.80 (7.40-12.00) fL Neut % (Auto) 68.7 (48.0-80.0) % Lymph % (Auto) 11.2 L (16.0-40.0) % [place] % (Auto) 14.1 (0.0-15.0) % Eos % (Auto) 5.7 (0.0-7.0) % Baso % (Auto) 0.3 (0.0-1.5) % Neut # (Auto) 8.7 H (1.4-5.7) K/uL Lymph # (Auto) 1.4 (0.6-2.4) K/uL [place] # (Auto) 1.8 H (0.0-0.8) K/uL Eos # (Auto) 0.7 (0.0-0.7) K/uL Baso # (Auto) 0.0 (0.0-0.1) K/uL Nucleated RBC % 0.0 /100WBC Nucleated RBCs # 0 K/uL Sodium 137 (136-146) mmol/L Potassium 4.2 (3.5-5.1) mmol/L Chloride 108 (98-110) mmol/L Carbon Dioxide 23 (21-31) mmol/L BUN 22 (6.0-23.0) mg/dL Creatinine 1.8 H (0.6-1.5) mg/dL Est Cr Clr Drug Dosing 41.25 mL/min Estimated GFR (MDRD) 37.6 ml/min Glucose 79 (60-110) mg/dL Calcium 8.1 L (8.8-10.8) mg/dL Total Bilirubin 0.4 (0.1-1.5) mg/dL AST 16 (5-40) IU/L ALT 17 (8-54) IU/L Alkaline Phosphatase 246 H (40-150) Total Protein 5.2 L (6.0-8.0) g/dL Albumin 2.4 L (3.4-4.8) g/dL Globulin 2.8 (2.0-3.5) g/dL Albumin/Globulin Ratio 0.9 L (1.3-2.8) Med Orders - Current: Current Medications Acetaminophen (Tylenol Extra Strength) 1,000 mg PO TID PRN PRN Reason: Pain Last Admin: 11/27/17 03:21 Dose: 1,000 mg Aspirin (Halfprin) 81 mg PO DAILY [facility] Last Admin: 11/27/17 08:29 Dose: 81 mg Atorvastatin Calcium (Lipitor) 20 mg PO DAILY [facility] Last Admin: 11/27/17 08:28 Dose: 20 mg Bupropion HCl (Wellbutrin Xl) 150 mg PO DAILY [facility] Last Admin: 11/27/17 08:29 Dose: 150 mg Carvedilol (Coreg) 3.125 mg PO BIDMEALS [facility] Last Admin: 11/27/17 08:28 Dose: 3.125 mg Gabapentin (Neurontin) 600 mg PO QID [facility] Last Admin: 11/27/17 11:05 Dose: 600 mg Sodium Chloride (Normal Saline) 1,000 mls @ 125 mls/hr IV STAT [facility] Last Admin: 11/27/17 14:11 Dose: 125 mls/hr Meropenem 1 gm/ Sodium (Chloride) 100 mls @ 200 mls/hr IV Q8H [facility] Last Admin: 11/27/17 08:29 Dose: 200 mls/hr Sodium Chloride (Normal Saline) 500 mls @ 500 mls/hr IV .[facility] Amikacin Pharmacy To (Dose) 0 each IVPUSH ASDIRECTED [facility] Sodium Chloride (Saline Flush) 10 ml FLUSH ASDIRECTED PRN PRN Reason: Keep Vein Open Sodium Chloride (Saline Flush) 2.5 ml FLUSH ASDIRECTED PRN PRN Reason: Keep Vein Open Tamsulosin HCl (Flomax) 0.4 mg PO DAILY [facility] Last Admin: 11/27/17 08:29 Dose: 0.4 mg Discontinued Medications Enoxaparin Sodium (Lovenox) 40 mg SUBCUT DAILY [facility] Amikacin Sulfate 400 mg/ (Dextrose/Water) 101.6 mls @ 100.594 mls/hr IV Q8H [facility] Last Admin: 11/25/17 02:18 Dose: 100.594 mls/hr Meropenem 1 gm/ Sodium (Chloride) 100 mls @ 200 mls/hr IV Q8H [facility] Last Admin: 11/26/17 08:16 Dose: 200 mls/hr Amikacin Sulfate 400 mg/ (Sodium Chloride) 101.6 mls @ 100 mls/hr IV Q8H [facility] Last Admin: 11/26/17 10:23 Dose: Not Given Amikacin Sulfate 350 mg/ (Sodium Chloride) 101.4 mls @ 99.792 mls/hr IV Q24H [facility] Amikacin Sulfate 400 mg/ (Sodium Chloride) 101.6 mls @ 100 mls/hr IV Q24H [facility] Last Admin: 11/27/17 01:19 Dose: 100 mls/hr - Exam General: Alert, Oriented Cardiovascular: Regular Rate, Regular Rhythm GI/Abdominal Exam: Soft, Non-Tender Back Exam: Other (about 2cm fluctuant abscess noted at base of right lateral surgical scar) Extremities: No Pedal Edema - Problem List Review Problem List Initiated/Reviewed/Updated: Yes - My Orders Last 24 Hours: My Active Orders 11/27/17 11:58 Central Line PICC Insertion [Central Venous Line Insertion] [OM.PC] Routine 11/27/17 15:00 Sodium Chloride 0.9% [Normal Saline] 500 ml IV .[facility] 11/28/17 05:11 CBC WITH AUTO DIFF [HEME] AM COMPREHENSIVE METABOLIC PN,CMP [CHEM] AM 11/26/17 17:00 Meropenem [Merrem] 1 gm Sodium Chloride 0.9% [Normal Saline] 100 ml IV Q8H - Plan Plan:: 67 yo male admitted for UTI. ESBL klebseilla: continue meropenem, plan on PICC tomorrow. Back abscess: surgery consulted for I&D WILLI: creatinine increased to 1.8, will d/c amikacin, giving fluids DVT prophylaxis: SCDs ambulation, holding pharmacological prophylaxis for I&D
[2017-11-27] MEDS ORDERED: Sodium Chloride 0.9% 500 ML IV SCH (15:00)
[2017-11-27] MEDS ORDERED: Lidocaine 1% with EPINEPHrine 1:100,000 10 ML MDV INJECT ONE (16:05)
--- NOTE | 2017-11-27 16:39 | PCM.SN ---
- Free Text/Narrative Note: pt vanessa, cx dicted [id number]; proceed w bedside procedure for i/d
--- NOTE | 2017-11-27 16:43 | PCM.OPNOTE ---
- General Post-Op/Procedure Note Date of Surgery/Procedure: 11/27/17 Operative Procedure(s): id of back abscess Findings: see dict [id number] Pre Op Diagnosis: back abscess Post-Op Diagnosis: Same Anesthesia Technique: Local Primary Surgeon: Santhosh Ochoa Complications: None Condition: Fair Free Text/Narrative:: Intake & Output 11/27/17 11/27/17 11/27/17 06:59 14:59 22:59 Intake Total 2209 100 Balance 2209 100
[2017-11-27] MEDS ORDERED: Morphine 2 MG/ML Syringe IVPUSH ONE (17:31)
[2017-11-27] MEDS ORDERED: Morphine 10 MG/ML Syringe ONE (21:11)
[2017-11-27] MEDS: Acetaminophen/oxyCODONE 325-5 MG Tab PO PRN (21:18)
--- NOTE | 2017-11-27 22:31 | OR ---
SURGEON: Santhosh Ochoa MD DATE OF PROCEDURE: 11/27/2017 PREOPERATIVE DIAGNOSIS: Back abscess. POSTOPERATIVE DIAGNOSIS: Back abscess. PROCEDURE PERFORMED: Incision and drainage. COMPLICATIONS: None. FINDINGS: Large amount around 150 mL of foul-smelling purulent necrosis from the wound, the wound is in the backside. PROCEDURE IN DETAIL: The procedure was done at the bedside. After procedure was explained to the patient, informed consent signed. The procedure was then started. The patient lying on his chest and the area right next to the scapula angle on the right side was prepped and draped in a sterile fashion and local anesthetic was infiltrated and using the 11 blade, the incision was made right at the lower extremity of the previous surgical incision gushing, out a large amount of foul- smelling necrosis around 150 mL. With a little palpation and squeezing more, the residual also came out, followed by packing the wound with 0.25-inch iodoform gauze and appropriate dressing. The patient tolerated the procedure well. There were no intraoperative complications. Dr. Ochoa was present throughout the procedure. Gram stain, C and S was given. As always, thank you for the kind referral. DON / TERRELL /[id number]
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
[2017-11-28] MEDS: Meropenem 1 GM in Sodium Chloride 0.9% 100 ML IV SCH ×3 (00:36→16:08)
[2017-11-28] MEDS: Gabapentin 300 MG Cap PO SCH ×4 (00:37→17:13)
[2017-11-28] MEDS: Sodium Chloride 0.9% 1,000 ML IV SCH ×3 (00:42→21:36)
[2017-11-28] MEDS: Acetaminophen 500 MG Tab PO PRN ×2 (06:01→21:46)
[2017-11-28] MEDS: buPROPion 150 MG Tab.ER PO SCH (08:36)
[2017-11-28] MEDS: Carvedilol 3.125 MG Tab PO SCH ×2 (08:36→16:19)
[2017-11-28] MEDS: Tamsulosin 0.4 MG Cap.ER PO SCH (08:36)
[2017-11-28] MEDS: Aspirin 81 MG Tab.EC PO SCH (08:36)
[2017-11-28] MEDS: atorvaSTATin 20 MG Tab PO SCH (08:36)
--- NOTE | 2017-11-28 16:11 | PCM.DCSUM1 ---
Discharge Summary - Hospital Course Free Text/Narrative:: 67 yo male admitted or ESBL UTI and Back Abscess. For UTI he was initially treated with Amikacin which was then switched to Meropenem due to WILLI. For his back abscess general surgery was consulted. Patient was seen by Dr. Ochoa who performed I&D. Cultures were obtained. Patient is to follow-up with Dr. Ochoa for his abscess. For his UTI he will be requiring [facility] Meropenem. He is insistent on being discharged and returning three times daily for IV therapy. Picc line placed prior to discharge. He will also f/u with his pcp within 1-2 weeks of discharge. He was discharged 11/28/17 #ESBL UTI -PICC line placed on 11/28/17 -Meropenem 1 gm IV B8ectry for 11 more days - prescription provided and patient is to return to hospital for treatments -f/u with PCP #Back Abscess -I&D performed on 11/27/[address] Ochoa general surgery -f/u with Dr. Ochoa - Discharge Data Discharge Date: 11/28/17 Discharge Disposition: Home, Self-Care 01 Condition: Fair - Patient Summary/Data Operative Procedure(s) Performed: id of back abscess - Patient Instructions Diet: Usual Diet as Tolerated Activity: As Tolerated - Discharge Plan Prescriptions/Med Rec: Meropenem [Merrem] 1 gm IV Q8H 11 Days #33 dose Home Medications: Home Meds Fluticasone/Salmeterol [Advair Diskus 250-50] 1 puff INH BID 04/21/17 [History] Aspirin [Ecotrin] 81 mg PO DAILY 05/04/17 [History] Albuterol Sulfate 2.5 mg NEB BID PRN 06/18/17 [History] Carvedilol 3.125 mg PO BIDMEALS 06/18/17 [History] Acetaminophen [Tylenol Extra Strength] 1,000 mg PO TID PRN 07/21/17 [History] Gabapentin [Neurontin] 600 mg PO QID 07/21/17 [History] Ibuprofen 600 mg PO ASDIRECTED PRN 07/21/17 [History] buPROPion [Wellbutrin XL] 150 mg PO DAILY 07/21/17 [History] Amikacin Sulfate 250 mg IJ DAILY 11/24/17 [History] Finasteride 5 mg PO DAILY 11/24/17 [History] Folic Acid 1 mg PO DAILY 11/24/17 [History] Iron,Carbonyl/Vit C/Vit B12/Fa [Iron 100 Plus Tablet] 1 each PO DAILY 11/24/17 [ History] Tamsulosin HCl 0.4 mg PO DAILY 11/24/17 [History] atorvaSTATin [Lipitor] 20 mg PO DAILY 11/24/17 [History] Meropenem [Merrem] 1 gm IV Q8H 11 Days #33 dose 11/28/17 [Rx] Referrals: Antonio Arisa MD [Primary Care Provider] - - Discharge Summary/Plan Comment DC Time >30 min.: No - Patient Data Vitals - Most Recent: Last Vital Signs Temp 36.3 C 11/28/17 11:48 Pulse 63 11/28/17 11:48 Resp 18 11/28/17 11:48 BP 143/77 H 11/28/17 11:48 Pulse Ox 95 11/28/17 11:48 Weight - Most Recent: 85 kg I&O - Last 24 hours: Intake & Output 11/28/17 11/28/17 11/28/17 06:59 14:59 22:59 Intake Total 1575 100 Balance 1575 100 Lab Results - Last 24 hrs: Laboratory Results - last 24 hr 11/28/17 11/28/17 Range/Units 05:13 05:13 WBC 10.04 (4.0-11.0) K/uL RBC 3.36 L (4.50-5.90) M/uL Hgb 9.5 L (13.0-17.0) g/dL Hct 30.0 L (38.0-50.0) % MCV 89.3 (80.0-98.0) fL MCH 28.3 (27.0-32.0) pg MCHC 31.7 (31.0-37.0) g/dL RDW Std Deviation 53.1 (28.0-62.0) fl RDW Coeff of Jeannie 16 H (11.0-15.0) % Plt Count 307 (150-400) K/uL MPV 8.70 (7.40-12.00) fL Neut % (Auto) 63.9 (48.0-80.0) % Lymph % (Auto) 13.1 L (16.0-40.0) % [place] % (Auto) 15.3 H (0.0-15.0) % Eos % (Auto) 7.1 H (0.0-7.0) % Baso % (Auto) 0.6 (0.0-1.5) % Neut # (Auto) 6.4 H (1.4-5.7) K/uL Lymph # (Auto) 1.3 (0.6-2.4) K/uL [place] # (Auto) 1.5 H (0.0-0.8) K/uL Eos # (Auto) 0.7 (0.0-0.7) K/uL Baso # (Auto) 0.1 (0.0-0.1) K/uL Nucleated RBC % 0.0 /100WBC Nucleated RBCs # 0 K/uL Sodium 141 (136-146) mmol/L Potassium 4.4 (3.5-5.1) mmol/L Chloride 112 H (98-110) mmol/L Carbon Dioxide 20 L (21-31) mmol/L BUN 23 (6.0-23.0) mg/dL Creatinine 1.9 H (0.6-1.5) mg/dL Est Cr Clr Drug Dosing 39.08 mL/min Estimated GFR (MDRD) 35.3 ml/min Glucose 62 (60-110) mg/dL Calcium 8.1 L (8.8-10.8) mg/dL Total Bilirubin 0.4 (0.1-1.5) mg/dL AST 16 (5-40) IU/L ALT 16 (8-54) IU/L Alkaline Phosphatase 241 H (40-150) Total Protein 5.4 L (6.0-8.0) g/dL Albumin 2.4 L (3.4-4.8) g/dL Globulin 3.0 (2.0-3.5) g/dL Albumin/Globulin Ratio 0.8 L (1.3-2.8) AGNES Results - Last 24 hrs: Microbiology 11/27/17 16:30 Wound Culture - Preliminary Back - Right Upper Med Orders - Current: Current Medications Acetaminophen (Tylenol Extra Strength) 1,000 mg PO TID PRN PRN Reason: Pain Last Admin: 11/28/17 06:01 Dose: 1,000 mg Aspirin (Halfprin) 81 mg PO DAILY [facility] Last Admin: 11/28/17 08:36 Dose: 81 mg Atorvastatin Calcium (Lipitor) 20 mg PO DAILY [facility] Last Admin: 11/28/17 08:36 Dose: 20 mg Bupropion HCl (Wellbutrin Xl) 150 mg PO DAILY [facility] Last Admin: 11/28/17 08:36 Dose: 150 mg Carvedilol (Coreg) 3.125 mg PO BIDMEALS [facility] Last Admin: 11/28/17 08:36 Dose: 3.125 mg Gabapentin (Neurontin) 600 mg PO QID [facility] Last Admin: 11/28/17 11:50 Dose: 600 mg Sodium Chloride (Normal Saline) 1,000 mls @ 125 mls/hr IV STAT [facility] Last Admin: 11/28/17 09:43 Dose: 125 mls/hr Meropenem 1 gm/ Sodium (Chloride) 100 mls @ 200 mls/hr IV Q8H [facility] Last Admin: 11/28/17 08:37 Dose: 200 mls/hr Oxycodone/Acetaminophen (Percocet 325-5 Mg) 1 tab PO Q12H PRN PRN Reason: pain Last Admin: 11/27/17 21:18 Dose: 1 tab Sodium Chloride (Saline Flush) 10 ml FLUSH ASDIRECTED PRN PRN Reason: Keep Vein Open Sodium Chloride (Saline Flush) 2.5 ml FLUSH ASDIRECTED PRN PRN Reason: Keep Vein Open Tamsulosin HCl (Flomax) 0.4 mg PO DAILY [facility] Last Admin: 11/28/17 08:36 Dose: 0.4 mg Discontinued Medications Enoxaparin Sodium (Lovenox) 40 mg SUBCUT DAILY [facility] Amikacin Sulfate 400 mg/ (Dextrose/Water) 101.6 mls @ 100.594 mls/hr IV Q8H [facility] Last Admin: 11/25/17 02:18 Dose: 100.594 mls/hr Meropenem 1 gm/ Sodium (Chloride) 100 mls @ 200 mls/hr IV Q8H [facility] Last Admin: 11/26/17 08:16 Dose: 200 mls/hr Amikacin Sulfate 400 mg/ (Sodium Chloride) 101.6 mls @ 100 mls/hr IV Q8H [facility] Last Admin: 11/26/17 10:23 Dose: Not Given Amikacin Sulfate 350 mg/ (Sodium Chloride) 101.4 mls @ 99.792 mls/hr IV Q24H [facility] Amikacin Sulfate 400 mg/ (Sodium Chloride) 101.6 mls @ 100 mls/hr IV Q24H [facility] Last Admin: 11/27/17 01:19 Dose: 100 mls/hr Sodium Chloride (Normal Saline) 500 mls @ 500 mls/hr IV .BOLUS [facility] Lidocaine/Epinephrine (Xylocaine 1% With Epinephrine 1:100,000) 10 ml INJECT ONETIME ONE Stop: 11/27/17 16:06 Last Admin: 11/27/17 16:57 Dose: 10 ml Morphine Sulfate (Morphine) 2 mg IVPUSH ONETIME ONE Stop: 11/27/17 17:32 Last Admin: 11/27/17 21:23 Dose: 2 mg Morphine Sulfate (Morphine) Confirm Administered Dose 10 mg .ROUTE .STK-MED ONE Stop: 11/27/17 21:12 Last Admin: 11/27/17 21:27 Dose: Not Given Amikacin Pharmacy To (Dose) 0 each IVPUSH ASDIRECTED [facility] *Q Meaningful Use (DIS) - VTE *Q VTE Criteria *Q: - Stroke *Q Stroke Criteria *Q: - AMI *Q AMI Criteria *Q:
--- NOTE | 2017-11-28 17:17 | CR ---
EXAM DATE: 11/24/17 PATIENT'S AGE: 67 Patient: COURTNEY PAEZ Facility: [place], [place] Site . Site : 1950 Study: XRay Chest [id number]/29/2017 9:29:10 PM Ordering Physician: Doctor Patrick Final Report: INDICATIONS: Shortness of breath. Chills. TECHNIQUE: Chest 1 view. COMPARISON: Chest radiograph July 21, 2017. FINDINGS: No pneumothorax. Suspected right pleural thickening is similar in appearance. No definite pleural effusion. Bibasilar scarring or atelectasis. The lungs are otherwise clear. Cardiac and mediastinal contours are within normal limits. Plate and screw fixation of multiple right ribs, as before. IMPRESSION: No evidence of acute cardiopulmonary disease. Dictated by Tenzin Garcia MD @ 11/24/2017 9:37:01 PM Dictated by: Tenzin Garcia MD @ 11/24/2017 21:37:11 (Electronic Signature) Report Signed by Proxy. MARIA L
[2017-11-28] MEDS ORDERED: Sodium Chloride 0.9% 500 ML IV SCH (17:30)
--- NOTE | 2017-11-28 19:08 | PCM.PN ---
- General Info Date of Service: 11/28/17 Admission Dx/Problem (Free Text): Admission Diagnosis/Problem Admission Diagnosis/Problem Leukocytosis Subjective Update: Patient had I&D of back abscess yesterday. He tolerated it well. He denies any pain at site. He has been urinating constantly and his urinary discomfort is improving. He is tolerating oral intake and eager for discharge - Review of Systems General: Reports: No Symptoms HEENT: Reports: No Symptoms Pulmonary: Reports: No Symptoms Cardiovascular: Reports: No Symptoms Gastrointestinal: Reports: No Symptoms Genitourinary: Reports: No Symptoms Musculoskeletal: Reports: No Symptoms Skin: Reports: Other (left foot ulcer) Neurological: Reports: No Symptoms Psychiatric: Reports: No Symptoms - Patient Data Vitals - Most Recent: Last Vital Signs Temp 36.0 C 11/28/17 16:00 Pulse 91 11/28/17 16:19 Resp 16 11/28/17 16:00 BP 137/71 11/28/17 16:19 Pulse Ox 99 11/28/17 16:00 Weight - Most Recent: 85 kg I&O - Last 24 Hours: Intake & Output 11/28/17 11/28/17 11/28/17 06:59 14:59 22:59 Intake Total 1575 100 Balance 1575 100 Lab Results Last 24 Hours: Laboratory Results - last 24 hr 11/28/17 11/28/17 Range/Units 05:13 05:13 WBC 10.04 (4.0-11.0) K/uL RBC 3.36 L (4.50-5.90) M/uL Hgb 9.5 L (13.0-17.0) g/dL Hct 30.0 L (38.0-50.0) % MCV 89.3 (80.0-98.0) fL MCH 28.3 (27.0-32.0) pg MCHC 31.7 (31.0-37.0) g/dL RDW Std Deviation 53.1 (28.0-62.0) fl RDW Coeff of Jeannie 16 H (11.0-15.0) % Plt Count 307 (150-400) K/uL MPV 8.70 (7.40-12.00) fL Neut % (Auto) 63.9 (48.0-80.0) % Lymph % (Auto) 13.1 L (16.0-40.0) % [place] % (Auto) 15.3 H (0.0-15.0) % Eos % (Auto) 7.1 H (0.0-7.0) % Baso % (Auto) 0.6 (0.0-1.5) % Neut # (Auto) 6.4 H (1.4-5.7) K/uL Lymph # (Auto) 1.3 (0.6-2.4) K/uL [place] # (Auto) 1.5 H (0.0-0.8) K/uL Eos # (Auto) 0.7 (0.0-0.7) K/uL Baso # (Auto) 0.1 (0.0-0.1) K/uL Nucleated RBC % 0.0 /100WBC Nucleated RBCs # 0 K/uL Sodium 141 (136-146) mmol/L Potassium 4.4 (3.5-5.1) mmol/L Chloride 112 H (98-110) mmol/L Carbon Dioxide 20 L (21-31) mmol/L BUN 23 (6.0-23.0) mg/dL Creatinine 1.9 H (0.6-1.5) mg/dL Est Cr Clr Drug Dosing 39.08 mL/min Estimated GFR (MDRD) 35.3 ml/min Glucose 62 (60-110) mg/dL Calcium 8.1 L (8.8-10.8) mg/dL Total Bilirubin 0.4 (0.1-1.5) mg/dL AST 16 (5-40) IU/L ALT 16 (8-54) IU/L Alkaline Phosphatase 241 H (40-150) Total Protein 5.4 L (6.0-8.0) g/dL Albumin 2.4 L (3.4-4.8) g/dL Globulin 3.0 (2.0-3.5) g/dL Albumin/Globulin Ratio 0.8 L (1.3-2.8) [place] Results Last 24 Hours: Microbiology 11/27/17 16:30 Wound Culture - Preliminary Back - Right Upper Med Orders - Current: Current Medications Acetaminophen (Tylenol Extra Strength) 1,000 mg PO TID PRN PRN Reason: Pain Last Admin: 11/28/17 06:01 Dose: 1,000 mg Aspirin (Halfprin) 81 mg PO DAILY [facility] Last Admin: 11/28/17 08:36 Dose: 81 mg Atorvastatin Calcium (Lipitor) 20 mg PO DAILY [facility] Last Admin: 11/28/17 08:36 Dose: 20 mg Bupropion HCl (Wellbutrin Xl) 150 mg PO DAILY [facility] Last Admin: 11/28/17 08:36 Dose: 150 mg Carvedilol (Coreg) 3.125 mg PO BIDMEALS [facility] Last Admin: 11/28/17 16:19 Dose: 3.125 mg Gabapentin (Neurontin) 600 mg PO QID [facility] Last Admin: 11/28/17 17:13 Dose: 600 mg Sodium Chloride (Normal Saline) 1,000 mls @ 125 mls/hr IV STAT [facility] Last Admin: 11/28/17 09:43 Dose: 125 mls/hr Meropenem 1 gm/ Sodium (Chloride) 100 mls @ 200 mls/hr IV Q8H [facility] Last Admin: 11/28/17 16:08 Dose: 200 mls/hr Vancomycin HCl 1 gm/ Sodium (Chloride) 250 mls @ 166.667 mls/hr IV Q12H [facility] Last Admin: 11/28/17 17:13 Dose: 166.667 mls/hr Sodium Chloride (Normal Saline) 500 mls @ 500 mls/hr IV .BOLUS [facility] Oxycodone/Acetaminophen (Percocet 325-5 Mg) 1 tab PO Q12H PRN PRN Reason: pain Last Admin: 11/27/17 21:18 Dose: 1 tab Sodium Chloride (Saline Flush) 10 ml FLUSH ASDIRECTED PRN PRN Reason: Keep Vein Open Sodium Chloride (Saline Flush) 2.5 ml FLUSH ASDIRECTED PRN PRN Reason: Keep Vein Open Tamsulosin HCl (Flomax) 0.4 mg PO DAILY [facility] Last Admin: 11/28/17 08:36 Dose: 0.4 mg Vancomycin HCl (Pharmacy To Dose - Vancomycin) 1 dose .XX ASDIRECTED [facility] Discontinued Medications Enoxaparin Sodium (Lovenox) 40 mg SUBCUT DAILY [facility] Amikacin Sulfate 400 mg/ (Dextrose/Water) 101.6 mls @ 100.594 mls/hr IV Q8H [facility] Last Admin: 11/25/17 02:18 Dose: 100.594 mls/hr Meropenem 1 gm/ Sodium (Chloride) 100 mls @ 200 mls/hr IV Q8H [facility] Last Admin: 11/26/17 08:16 Dose: 200 mls/hr Amikacin Sulfate 400 mg/ (Sodium Chloride) 101.6 mls @ 100 mls/hr IV Q8H [facility] Last Admin: 11/26/17 10:23 Dose: Not Given Amikacin Sulfate 350 mg/ (Sodium Chloride) 101.4 mls @ 99.792 mls/hr IV Q24H [facility] Amikacin Sulfate 400 mg/ (Sodium Chloride) 101.6 mls @ 100 mls/hr IV Q24H [facility] Last Admin: 11/27/17 01:19 Dose: 100 mls/hr Sodium Chloride (Normal Saline) 500 mls @ 500 mls/hr IV .BOLUS [facility] Lidocaine/Epinephrine (Xylocaine 1% With Epinephrine 1:100,000) 10 ml INJECT ONETIME ONE Stop: 11/27/17 16:06 Last Admin: 11/27/17 16:57 Dose: 10 ml Morphine Sulfate (Morphine) 2 mg IVPUSH ONETIME ONE Stop: 11/27/17 17:32 Last Admin: 11/27/17 21:23 Dose: 2 mg Morphine Sulfate (Morphine) Confirm Administered Dose 10 mg .ROUTE .STK-MED ONE Stop: 11/27/17 21:12 Last Admin: 11/27/17 21:27 Dose: Not Given Amikacin Pharmacy To (Dose) 0 each IVPUSH ASDIRECTED [facility] - Exam General: Alert, Oriented, Cooperative, No Acute Distress HEENT: Pupils Equal, Pupils Reactive Neck: Supple Lungs: Clear to Auscultation, Normal Respiratory Effort Cardiovascular: Regular Rate, Regular Rhythm GI/Abdominal Exam: Normal Bowel Sounds, Soft, Non-Tender, No Distention Back Exam: Normal Inspection Extremities: Normal Inspection, No Pedal Edema, Normal Capillary Refill Peripheral Pulses: 2+: Radial (L), Radial (R) Wound/Incisions: Dressing Dry and Intact (Back), Other (decubitus ulcer present over left latera malleolus, 4-5 cm diameter, no puss or drainage, no tenderness , redness of overlying skin). No: Erythema (no erythema or surrounding skin of back ulcer) Neurological: No New Focal Deficit Psy/Mental Status: Alert, Normal Affect, Normal Mood - Problem List Review Problem List Initiated/Reviewed/Updated: Yes - Plan Plan:: 67 yo male admitted for UTI, Back abscess & WILLI #ESBL UTI -Leukocytosis resolved, BC NGTD -continue meropenem -PICC line placed today as patient is planning on completing IV Meropenem therapy as outpatient #Back abscess s/p I&D day #1 -surgery consulted and on board -Dr. Ochoa performed I&D 11/27/17 -continue Vancomycin until BC negative -as per orders of Dr. Ochoa, appreciate the rec's #WILLI -Cr currently 1.9, baseline 1.2 -continue IV NS @ 125 ml/hour -continue to monitor renal function #Decubitus Ulcer, Left foot, lateral malleolus -delayed wound healing -continue regular wound care with dry dressing -outpatient referral to Podiatry DVT prophylaxis: SCDs ambulation, pharmacological prophylaxis was held for I&D
[2017-11-29] MEDS: Gabapentin 300 MG Cap PO SCH ×4 (00:16→17:06)
[2017-11-29] MEDS: Meropenem 1 GM in Sodium Chloride 0.9% 100 ML IV SCH ×3 (00:17→17:44)
[2017-11-29] MEDS: Sodium Chloride 0.9% 1,000 ML IV SCH (07:40)
--- NOTE | 2017-11-29 08:36 | CR ---
EXAMINATION: Fluoro and ultrasound guided left-sided PICC line placement. HISTORY: Antibiotics. TECHNIQUE/FINDINGS: After written informed consent was obtained from the patient using ultrasound an d Fluoro guidance under aseptic conditions utilizing 1% lidocaine as local anesthesia a distal branch of the brachial vein was accessed and 5 [place] PICC catheter was deployed with its tip in the distal superior vena cava. The catheter flushes and withdraws blood well. The catheter is flushed with the diluted heparin. The catheter secured well. IMPRESSION: Successful Fluoro and ultrasound guided PICC line placement.
--- NOTE | 2017-11-29 08:36 | CR ---
EXAMINATION: Fluoro and ultrasound guided left-sided PICC line placement. HISTORY: Antibiotics. TECHNIQUE/FINDINGS: After written informed consent was obtained from the patient using ultrasound an d Fluoro guidance under aseptic conditions utilizing 1% lidocaine as local anesthesia a distal branch of the brachial vein was accessed and 5 [place] PICC catheter was deployed with its tip in the distal superior vena cava. The catheter flushes and withdraws blood well. The catheter is flushed with the diluted heparin. The catheter secured well. IMPRESSION: Successful Fluoro and ultrasound guided PICC line placement.
[2017-11-29] MEDS: atorvaSTATin 20 MG Tab PO SCH (08:58)
[2017-11-29] MEDS: Aspirin 81 MG Tab.EC PO SCH (08:58)
[2017-11-29] MEDS: Tamsulosin 0.4 MG Cap.ER PO SCH (08:58)
[2017-11-29] MEDS: buPROPion 150 MG Tab.ER PO SCH (08:58)
[2017-11-29] MEDS: Carvedilol 3.125 MG Tab PO SCH ×2 (09:04→17:07)
[2017-11-29] MEDS: Acetaminophen/oxyCODONE 325-5 MG Tab PO PRN (09:19)
[2017-11-29] MEDS: Acetaminophen 500 MG Tab PO PRN ×2 (11:18→20:13)
--- NOTE | 2017-11-29 11:25 | CR ---
EXAMINATION: Two-view chest (PA and Lateral views). HISTORY: Shortness of breath. Comparison: 11/24/2017. FINDINGS: The trachea is midline. The cardiomediastinal silhouette is within normal limits. No pulmonary infilt rates, effusions or pneumothorax. There is stable right pleural scarring overlying plate hardware fix ating multiple ribs again noted. There is a left-sided PICC line with tip in good position. Osseous structures appear unremarkable. IMPRESSION: No acute cardiopulmonary process.
--- NOTE | 2017-11-29 11:44 | PCM.PN ---
- General Info Date of Service: 11/29/17 Admission Dx/Problem (Free Text): Admission Diagnosis/Problem Admission Diagnosis/Problem Leukocytosis Subjective Update: Patient complaining of increased sob today Functional Status: Reports: Pain Controlled, Tolerating Diet, Ambulating, Urinating - Review of Systems General: Reports: No Symptoms HEENT: Reports: No Symptoms Pulmonary: Reports: Shortness of Breath Cardiovascular: Reports: No Symptoms Gastrointestinal: Reports: No Symptoms Genitourinary: Reports: No Symptoms Musculoskeletal: Reports: No Symptoms Skin: Reports: No Symptoms Neurological: Reports: No Symptoms Psychiatric: Reports: No Symptoms - Patient Data Vitals - Most Recent: Last Vital Signs Temp 36.6 C 11/29/17 08:00 Pulse 97 11/29/17 09:04 Resp 16 11/29/17 08:00 BP 157/93 H 11/29/17 09:04 Pulse Ox 96 11/29/17 08:00 Weight - Most Recent: 85 kg I&O - Last 24 Hours: Intake & Output 11/28/17 11/29/17 11/29/17 22:59 06:59 14:59 Intake Total 500 400 Output Total 0 Balance 500 400 Lab Results Last 24 Hours: Laboratory Results - last 24 hr 11/29/17 11/29/17 Range/Units 09:29 09:29 WBC 8.08 (4.0-11.0) K/uL RBC 3.08 L (4.50-5.90) M/uL Hgb 8.8 L (13.0-17.0) g/dL Hct 26.8 L (38.0-50.0) % MCV 87.0 (80.0-98.0) fL MCH 28.6 (27.0-32.0) pg MCHC 32.8 (31.0-37.0) g/dL RDW Std Deviation 50.9 (28.0-62.0) fl RDW Coeff of Jeannie 16 H (11.0-15.0) % Plt Count 251 (150-400) K/uL MPV 8.50 (7.40-12.00) fL Neut % (Auto) 66.6 (48.0-80.0) % Lymph % (Auto) 12.0 L (16.0-40.0) % [place] % (Auto) 13.1 (0.0-15.0) % Eos % (Auto) 7.4 H (0.0-7.0) % Baso % (Auto) 0.9 (0.0-1.5) % Neut # (Auto) 5.4 (1.4-5.7) K/uL Lymph # (Auto) 1.0 (0.6-2.4) K/uL [place] # (Auto) 1.1 H (0.0-0.8) K/uL Eos # (Auto) 0.6 (0.0-0.7) K/uL Baso # (Auto) 0.1 (0.0-0.1) K/uL Nucleated RBC % 0.0 /100WBC Nucleated RBCs # 0 K/uL Sodium 139 (136-146) mmol/L Potassium 3.8 (3.5-5.1) mmol/L Chloride 111 H (98-110) mmol/L Carbon Dioxide 20 L (21-31) mmol/L BUN 22 (6.0-23.0) mg/dL Creatinine 1.8 H (0.6-1.5) mg/dL Est Cr Clr Drug Dosing 41.25 mL/min Estimated GFR (MDRD) 37.6 ml/min Glucose 78 (60-110) mg/dL Calcium 8.1 L (8.8-10.8) mg/dL [place] Results Last 24 Hours: Microbiology 11/27/17 16:30 Wound Culture - Preliminary Back - Right Upper Med Orders - Current: Current Medications Acetaminophen (Tylenol Extra Strength) 1,000 mg PO TID PRN PRN Reason: Pain Last Admin: 11/29/17 11:18 Dose: 1,000 mg Aspirin (Halfprin) 81 mg PO DAILY [facility] Last Admin: 11/29/17 08:58 Dose: 81 mg Atorvastatin Calcium (Lipitor) 20 mg PO DAILY [facility] Last Admin: 11/29/17 08:58 Dose: 20 mg Bupropion HCl (Wellbutrin Xl) 150 mg PO DAILY [facility] Last Admin: 11/29/17 08:58 Dose: 150 mg Carvedilol (Coreg) 3.125 mg PO BIDMEALS [facility] Last Admin: 11/29/17 09:04 Dose: 3.125 mg Gabapentin (Neurontin) 600 mg PO QID [facility] Last Admin: 11/29/17 11:18 Dose: 600 mg Sodium Chloride (Normal Saline) 1,000 mls @ 75 mls/hr IV STAT [facility] Last Admin: 11/29/17 07:40 Dose: 125 mls/hr Meropenem 1 gm/ Sodium (Chloride) 100 mls @ 200 mls/hr IV Q8H [facility] Last Admin: 11/29/17 08:58 Dose: 200 mls/hr Vancomycin HCl 1 gm/ Sodium (Chloride) 250 mls @ 166.667 mls/hr IV Q12H [facility] Last Admin: 11/29/17 04:47 Dose: 166.667 mls/hr Sodium Chloride (Normal Saline) 500 mls @ 500 mls/hr IV .BOLUS [facility] Last Admin: 11/28/17 18:02 Dose: 500 mls/hr Oxycodone/Acetaminophen (Percocet 325-5 Mg) 1 tab PO Q12H PRN PRN Reason: pain Last Admin: 11/29/17 09:19 Dose: 1 tab Sodium Chloride (Saline Flush) 10 ml FLUSH ASDIRECTED PRN PRN Reason: Keep Vein Open Sodium Chloride (Saline Flush) 2.5 ml FLUSH ASDIRECTED PRN PRN Reason: Keep Vein Open Tamsulosin HCl (Flomax) 0.4 mg PO DAILY [facility] Last Admin: 11/29/17 08:58 Dose: 0.4 mg Vancomycin HCl (Pharmacy To Dose - Vancomycin) 1 dose .XX ASDIRECTED [facility] Discontinued Medications Enoxaparin Sodium (Lovenox) 40 mg SUBCUT DAILY [facility] Amikacin Sulfate 400 mg/ (Dextrose/Water) 101.6 mls @ 100.594 mls/hr IV Q8H [facility] Last Admin: 11/25/17 02:18 Dose: 100.594 mls/hr Meropenem 1 gm/ Sodium (Chloride) 100 mls @ 200 mls/hr IV Q8H [facility] Last Admin: 11/26/17 08:16 Dose: 200 mls/hr Amikacin Sulfate 400 mg/ (Sodium Chloride) 101.6 mls @ 100 mls/hr IV Q8H [facility] Last Admin: 11/26/17 10:23 Dose: Not Given Amikacin Sulfate 350 mg/ (Sodium Chloride) 101.4 mls @ 99.792 mls/hr IV Q24H [facility] Amikacin Sulfate 400 mg/ (Sodium Chloride) 101.6 mls @ 100 mls/hr IV Q24H [facility] Last Admin: 11/27/17 01:19 Dose: 100 mls/hr Sodium Chloride (Normal Saline) 500 mls @ 500 mls/hr IV .[facility] Lidocaine/Epinephrine (Xylocaine 1% With Epinephrine 1:100,000) 10 ml INJECT ONETIME ONE Stop: 11/27/17 16:06 Last Admin: 11/27/17 16:57 Dose: 10 ml Morphine Sulfate (Morphine) 2 mg IVPUSH ONETIME ONE Stop: 11/27/17 17:32 Last Admin: 11/27/17 21:23 Dose: 2 mg Morphine Sulfate (Morphine) Confirm Administered Dose 10 mg .ROUTE .STK-MED ONE Stop: 11/27/17 21:12 Last Admin: 11/27/17 21:27 Dose: Not Given Amikacin Pharmacy To (Dose) 0 each IVPUSH ASDIRECTED [facility] - Exam General: Alert, Oriented HEENT: Pupils Equal, Pupils Reactive Lungs: Normal Respiratory Effort, Decreased Breath Sounds, Crackles Cardiovascular: Regular Rate, Regular Rhythm GI/Abdominal Exam: Normal Bowel Sounds, Soft, No Distention Back Exam: Normal Inspection Extremities: Normal Inspection, Normal Capillary Refill Skin: Intact Neurological: No New Focal Deficit - Problem List Review Problem List Initiated/Reviewed/Updated: Yes - Plan Plan:: 67 yo male admitted for UTI, Back abscess & WILLI #SOB -repeat CXR -decrease IVF rate to prevent fluid overload #ESBL UTI -Leukocytosis resolved, BC NGTD -PICC line placed 11/28/17 as patient is planning on completing IV Meropenem therapy as outpatient -continue meropenem #Back abscess s/p I&D day #12 -surgery consulted and on board -Dr. Ochoa performed I&D 11/27/17 -continue Vancomycin until Wound culture negative - preliminary reading suspicious of MRSA plan: -f/u wound cultures -as per orders of Dr. Ochoa, appreciate the rec's #WILLI -Cr currently 1.9, baseline 1.2 -decrease IV NS @ 75 ml/hour until fluid over is r/o -continue to monitor renal function #Decubitus Ulcer, Left foot, lateral malleolus -delayed wound healing -continue regular wound care with dry dressing -outpatient referral to Podiatry DVT prophylaxis: SCDs ambulation, pharmacological prophylaxis was held for I&D
[2017-11-29] MEDS: Albuterol/Ipratropium 3.0-0.5 MG/3 ML Neb Soln NEB PRN ×2 (13:40→19:52)
[2017-11-29] MEDS ORDERED: Sodium Chloride 0.9% 1,000 ML IV SCH (13:45)
[2017-11-29] MEDS: Heparin Sodium 5,000 Units/ML Vial SUBCUT SCH (20:04)
[2017-11-30] MEDS: Gabapentin 300 MG Cap PO SCH ×2 (00:28→05:22)
[2017-11-30] MEDS: Meropenem 1 GM in Sodium Chloride 0.9% 100 ML IV SCH ×2 (00:29→09:14)
[2017-11-30] MEDS: Albuterol/Ipratropium 3.0-0.5 MG/3 ML Neb Soln NEB PRN (08:19)
[2017-11-30 08:36] VITALS: BP 164/94
[2017-11-30] MEDS: atorvaSTATin 20 MG Tab PO SCH (08:58)
[2017-11-30] MEDS: Carvedilol 3.125 MG Tab PO SCH (08:58)
[2017-11-30] MEDS: Tamsulosin 0.4 MG Cap.ER PO SCH (08:58)
[2017-11-30] MEDS: buPROPion 150 MG Tab.ER PO SCH (08:58)
[2017-11-30] MEDS: Heparin Sodium 5,000 Units/ML Vial SUBCUT SCH (08:59)
[2017-11-30] MEDS: Aspirin 81 MG Tab.EC PO SCH (08:59)
--- NOTE | 2017-11-30 09:27 | PCM.SURGPN ---
- General Info Date of Service: 11/30/17 Functional Status: Reports: Pain Controlled - Review of Systems General: Reports: No Symptoms Gastrointestinal: Reports: No Symptoms (wound, daily drsg change w packing, 11/30 in iodoform gauze, ) - Patient Data Vitals - Most Recent: Last Vital Signs Temp 96.3 F 11/30/17 08:00 Pulse 99 11/30/17 08:58 Resp 22 H 11/30/17 08:00 BP 164/94 H 11/30/17 08:58 Pulse Ox 96 11/30/17 08:00 Weight - Most Recent: 187 lb 6.287 oz I&O - Last 24 Hours: Intake & Output 11/29/17 11/30/17 11/30/17 22:59 06:59 14:59 Intake Total 1334 1499 Output Total 0 Balance 1334 1499 Lab Results Last 24 Hrs: Laboratory Results - last 24 hr 11/29/17 11/29/17 11/30/17 Range/Units 09:29 09:29 05:12 WBC 8.08 7.65 (4.0-11.0) K/uL RBC 3.08 L 3.09 L (4.50-5.90) M/uL Hgb 8.8 L 8.7 L (13.0-17.0) g/dL Hct 26.8 L 26.7 L (38.0-50.0) % MCV 87.0 86.4 (80.0-98.0) fL MCH 28.6 28.2 (27.0-32.0) pg MCHC 32.8 32.6 (31.0-37.0) g/dL RDW Std Deviation 50.9 50.9 (28.0-62.0) fl RDW Coeff of Jeannie 16 H 16 H (11.0-15.0) % Plt Count 251 251 (150-400) K/uL MPV 8.50 8.80 (7.40-12.00) fL Neut % (Auto) 66.6 61.3 (48.0-80.0) % Lymph % (Auto) 12.0 L 17.4 (16.0-40.0) % [place] % (Auto) 13.1 11.9 (0.0-15.0) % Eos % (Auto) 7.4 H 8.9 H (0.0-7.0) % Baso % (Auto) 0.9 0.5 (0.0-1.5) % Neut # (Auto) 5.4 4.7 (1.4-5.7) K/uL Lymph # (Auto) 1.0 1.3 (0.6-2.4) K/uL [place] # (Auto) 1.1 H 0.9 H (0.0-0.8) K/uL Eos # (Auto) 0.6 0.7 (0.0-0.7) K/uL Baso # (Auto) 0.1 0.0 (0.0-0.1) K/uL Nucleated RBC % 0.0 0.0 /100WBC Nucleated RBCs # 0 0 K/uL Sodium 139 (136-146) mmol/L Potassium 3.8 (3.5-5.1) mmol/L Chloride 111 H (98-110) mmol/L Carbon Dioxide 20 L (21-31) mmol/L BUN 22 (6.0-23.0) mg/dL Creatinine 1.8 H (0.6-1.5) mg/dL Est Cr Clr Drug Dosing 41.25 mL/min Estimated GFR (MDRD) 37.6 ml/min Glucose 78 (60-110) mg/dL Calcium 8.1 L (8.8-10.8) mg/dL 11/30/17 Range/Units 05:12 WBC (4.0-11.0) K/uL RBC (4.50-5.90) M/uL Hgb (13.0-17.0) g/dL Hct (38.0-50.0) % MCV (80.0-98.0) fL MCH (27.0-32.0) pg MCHC (31.0-37.0) g/dL RDW Std Deviation (28.0-62.0) fl RDW Coeff of Jeannie (11.0-15.0) % Plt Count (150-400) K/uL MPV (7.40-12.00) fL Neut % (Auto) (48.0-80.0) % Lymph % (Auto) (16.0-40.0) % [place] % (Auto) (0.0-15.0) % Eos % (Auto) (0.0-7.0) % Baso % (Auto) (0.0-1.5) % Neut # (Auto) (1.4-5.7) K/uL Lymph # (Auto) (0.6-2.4) K/uL [place] # (Auto) (0.0-0.8) K/uL Eos # (Auto) (0.0-0.7) K/uL Baso # (Auto) (0.0-0.1) K/uL Nucleated RBC % /100WBC Nucleated RBCs # K/uL Sodium 141 (136-146) mmol/L Potassium 4.2 (3.5-5.1) mmol/L Chloride 113 H (98-110) mmol/L Carbon Dioxide 20 L (21-31) mmol/L BUN 24 H (6.0-23.0) mg/dL Creatinine 1.7 H (0.6-1.5) mg/dL Est Cr Clr Drug Dosing 43.68 mL/min Estimated GFR (MDRD) 40.2 ml/min Glucose 79 (60-110) mg/dL Calcium 8.1 L (8.8-10.8) mg/dL [place] Results Last 24 Hrs: Microbiology 11/27/17 16:30 Wound Culture - Final Back - Right Upper (Mrsa) Staphylococcus Aureus Med Orders - Current: Current Medications Acetaminophen (Tylenol Extra Strength) 1,000 mg PO TID PRN PRN Reason: Pain Last Admin: 11/29/17 20:13 Dose: 1,000 mg Albuterol/Ipratropium (Duoneb 3.0-0.5 Mg/3 Ml) 3 ml NEB Q4HRRT PRN PRN Reason: Wheezing Last Admin: 11/30/17 08:19 Dose: 3 ml Aspirin (Halfprin) 81 mg PO DAILY [facility] Last Admin: 11/30/17 08:59 Dose: 81 mg Atorvastatin Calcium (Lipitor) 20 mg PO DAILY [facility] Last Admin: 11/30/17 08:58 Dose: 20 mg Bupropion HCl (Wellbutrin Xl) 150 mg PO DAILY [facility] Last Admin: 11/30/17 08:58 Dose: 150 mg Carvedilol (Coreg) 3.125 mg PO BIDMEALS [facility] Last Admin: 11/30/17 08:58 Dose: 3.125 mg Gabapentin (Neurontin) 600 mg PO QID [facility] Last Admin: 11/30/17 05:22 Dose: 600 mg Heparin Sodium (Porcine) (Heparin Sodium) 5,000 units SUBCUT Q12HR [facility] Last Admin: 11/30/17 08:59 Dose: 5,000 units Meropenem 1 gm/ Sodium (Chloride) 100 mls @ 200 mls/hr IV Q8H [facility] Last Admin: 11/30/17 09:14 Dose: 200 mls/hr Vancomycin HCl 1 gm/ Sodium (Chloride) 250 mls @ 166.667 mls/hr IV Q12H [facility] Last Admin: 11/30/17 05:19 Dose: 166.667 mls/hr Sodium Chloride (Normal Saline) 1,000 mls @ 75 mls/hr IV ASDIRECTED [facility] Last Admin: 11/29/17 23:06 Dose: 75 mls/hr Oxycodone/Acetaminophen (Percocet 325-5 Mg) 1 tab PO Q12H PRN PRN Reason: pain Last Admin: 11/29/17 09:19 Dose: 1 tab Sodium Chloride (Saline Flush) 10 ml FLUSH ASDIRECTED PRN PRN Reason: Keep Vein Open Sodium Chloride (Saline Flush) 2.5 ml FLUSH ASDIRECTED PRN PRN Reason: Keep Vein Open Tamsulosin HCl (Flomax) 0.4 mg PO DAILY [facility] Last Admin: 11/30/17 08:58 Dose: 0.4 mg Vancomycin HCl (Pharmacy To Dose - Vancomycin) 1 dose .XX ASDIRECTED [facility] Discontinued Medications Enoxaparin Sodium (Lovenox) 40 mg SUBCUT DAILY [facility] Sodium Chloride (Normal Saline) 1,000 mls @ 75 mls/hr IV STAT [facility] Last Admin: 11/29/17 07:40 Dose: 125 mls/hr Amikacin Sulfate 400 mg/ (Dextrose/Water) 101.6 mls @ 100.594 mls/hr IV Q8H [facility] Last Admin: 11/25/17 02:18 Dose: 100.594 mls/hr Meropenem 1 gm/ Sodium (Chloride) 100 mls @ 200 mls/hr IV Q8H [facility] Last Admin: 11/26/17 08:16 Dose: 200 mls/hr Amikacin Sulfate 400 mg/ (Sodium Chloride) 101.6 mls @ 100 mls/hr IV Q8H [facility] Last Admin: 11/26/17 10:23 Dose: Not Given Amikacin Sulfate 350 mg/ (Sodium Chloride) 101.4 mls @ 99.792 mls/hr IV Q24H [facility] Amikacin Sulfate 400 mg/ (Sodium Chloride) 101.6 mls @ 100 mls/hr IV Q24H [facility] Last Admin: 11/27/17 01:19 Dose: 100 mls/hr Sodium Chloride (Normal Saline) 500 mls @ 500 mls/hr IV .BOLUS [facility] Sodium Chloride (Normal Saline) 500 mls @ 500 mls/hr IV .BOLUS [facility] Last Admin: 11/28/17 18:02 Dose: 500 mls/hr Lidocaine/Epinephrine (Xylocaine 1% With Epinephrine 1:100,000) 10 ml INJECT ONETIME ONE Stop: 11/27/17 16:06 Last Admin: 11/27/17 16:57 Dose: 10 ml Morphine Sulfate (Morphine) 2 mg IVPUSH ONETIME ONE Stop: 11/27/17 17:32 Last Admin: 11/27/17 21:23 Dose: 2 mg Morphine Sulfate (Morphine) Confirm Administered Dose 10 mg .ROUTE .STK-MED ONE Stop: 11/27/17 21:12 Last Admin: 11/27/17 21:27 Dose: Not Given Amikacin Pharmacy To (Dose) 0 each IVPUSH ASDIRECTED [facility] - Exam Wound/Incisions: Healing Well (wound contracted nicely, clear serous drainage on drsg, tunnel at 1 oclock, 6.5 cm, no odor/cellulitis/tenderness/purulent drainage, none.) GI/Abdominal Exam: Normal Bowel Sounds, Soft, Non-Tender - Problem List Review Problem List Initiated/Reviewed/Updated: Yes - My Orders Last 24 Hours: Active Orders 24 hr Category Date Time Status Communication Order [RC] ROUTINE Care 11/29/17 09:42 Active RT Aerosol Therapy [RC] ASDIRECTED Care 11/29/17 13:08 Active BMP [BASIC METABOLIC PANEL,BMP] [CHEM] AM Lab 12/01/17 05:11 Ordered BMP [BASIC METABOLIC PANEL,BMP] [CHEM] AM Lab 12/02/17 05:11 Ordered BMP [BASIC METABOLIC PANEL,BMP] [CHEM] AM Lab 12/03/17 05:11 Ordered BMP [BASIC METABOLIC PANEL,BMP] [CHEM] AM Lab 12/04/17 05:11 Ordered BMP [BASIC METABOLIC PANEL,BMP] [CHEM] AM Lab 12/05/17 05:11 Ordered BMP [BASIC METABOLIC PANEL,BMP] [CHEM] AM Lab 12/06/17 05:11 Ordered BMP [BASIC METABOLIC PANEL,BMP] [CHEM] AM Lab 12/07/17 05:11 Ordered BMP [BASIC METABOLIC PANEL,BMP] [CHEM] AM Lab 12/08/17 05:11 Ordered BMP [BASIC METABOLIC PANEL,BMP] [CHEM] AM Lab 12/09/17 05:11 Ordered CBC WITH AUTO DIFF [HEME] AM Lab 12/01/17 05:11 Ordered CBC WITH AUTO DIFF [HEME] AM Lab 12/02/17 05:11 Ordered CBC WITH AUTO DIFF [HEME] AM Lab 12/03/17 05:11 Ordered CBC WITH AUTO DIFF [HEME] AM Lab 12/04/17 05:11 Ordered CBC WITH AUTO DIFF [HEME] AM Lab 12/05/17 05:11 Ordered CBC WITH AUTO DIFF [HEME] AM Lab 12/06/17 05:11 Ordered CBC WITH AUTO DIFF [HEME] AM Lab 12/07/17 05:11 Ordered CBC WITH AUTO DIFF [HEME] AM Lab 12/08/17 05:11 Ordered CBC WITH AUTO DIFF [HEME] AM Lab 12/09/17 05:11 Ordered VANCOMYCIN TROUGH [CHEM] Routine Lab 11/30/17 15:30 Ordered Albuterol/Ipratropium [DuoNeb 3.0-0.5 MG/3 ML] Med 11/29/17 13:08 Active 3 ml NEB Q4HRRT PRN Heparin Sodium Med 11/29/17 21:00 Active 5,000 units SUBCUT Q12HR Sodium Chloride 0.9% [Normal Saline] 1,000 ml Med 11/29/17 13:45 Active IV ASDIRECTED Medication Orders Acetaminophen (Tylenol Extra Strength) 1,000 mg PO TID PRN PRN Reason: Pain Last Admin: 11/29/17 20:13 Dose: 1,000 mg Admin: 11/29/17 11:18 Dose: 1,000 mg Admin: 11/28/17 21:46 Dose: 1,000 mg Admin: 11/28/17 06:01 Dose: 1,000 mg Admin: 11/27/17 03:21 Dose: 1,000 mg Admin: 11/26/17 19:19 Dose: 1,000 mg Admin: 11/26/17 06:30 Dose: 1,000 mg Admin: 11/25/17 22:22 Dose: 1,000 mg Admin: 11/25/17 09:07 Dose: 1,000 mg Admin: 11/25/17 01:32 Dose: 1,000 mg Albuterol/Ipratropium (Duoneb 3.0-0.5 Mg/3 Ml) 3 ml NEB Q4HRRT PRN PRN Reason: Wheezing Last Admin: 11/30/17 08:19 Dose: 3 ml Admin: 11/29/17 19:52 Dose: 3 ml Admin: 11/29/17 13:40 Dose: 3 ml Aspirin (Halfprin) 81 mg PO DAILY [facility] Last Admin: 11/30/17 08:59 Dose: 81 mg Admin: 11/29/17 08:58 Dose: 81 mg Admin: 11/28/17 08:36 Dose: 81 mg Admin: 11/27/17 08:29 Dose: 81 mg Admin: 11/26/17 08:09 Dose: 81 mg Admin: 11/25/17 08:31 Dose: 81 mg Atorvastatin Calcium (Lipitor) 20 mg PO DAILY [facility] Last Admin: 11/30/17 08:58 Dose: 20 mg Admin: 11/29/17 08:58 Dose: 20 mg Admin: 11/28/17 08:36 Dose: 20 mg Admin: 11/27/17 08:28 Dose: 20 mg Admin: 11/26/17 08:08 Dose: 20 mg Admin: 11/25/17 08:31 Dose: 20 mg Bupropion HCl (Wellbutrin Xl) 150 mg PO DAILY [facility] Last Admin: 11/30/17 08:58 Dose: 150 mg Admin: 11/29/17 08:58 Dose: 150 mg Admin: 11/28/17 08:36 Dose: 150 mg Admin: 11/27/17 08:29 Dose: 150 mg Admin: 11/26/17 08:08 Dose: 150 mg Admin: 11/25/17 08:32 Dose: 150 mg Carvedilol (Coreg) 3.125 mg PO BIDMEALS [facility] Last Admin: 11/30/17 08:58 Dose: 3.125 mg Admin: 11/29/17 17:07 Dose: 3.125 mg Admin: 11/29/17 09:04 Dose: 3.125 mg Admin: 11/28/17 16:19 Dose: 3.125 mg Admin: 11/28/17 08:36 Dose: 3.125 mg Admin: 11/27/17 16:54 Dose: 3.125 mg Admin: 11/27/17 08:28 Dose: 3.125 mg Admin: 11/26/17 16:06 Dose: 3.125 mg Admin: 11/26/17 08:16 Dose: 3.125 mg Admin: 11/25/17 16:27 Dose: 3.125 mg Admin: 11/25/17 08:31 Dose: 3.125 mg Gabapentin (Neurontin) 600 mg PO QID [facility] Last Admin: 11/30/17 05:22 Dose: 600 mg Admin: 11/30/17 00:28 Dose: 600 mg Admin: 11/29/17 17:06 Dose: 600 mg Admin: 11/29/17 11:18 Dose: 600 mg Admin: 11/29/17 06:24 Dose: 600 mg Admin: 11/29/17 00:16 Dose: 600 mg Admin: 11/28/17 17:13 Dose: 600 mg Admin: 11/28/17 11:50 Dose: 600 mg Admin: 11/28/17 05:59 Dose: 600 mg Admin: 11/28/17 00:37 Dose: 600 mg Admin: 11/27/17 18:51 Dose: 600 mg Admin: 11/27/17 11:05 Dose: 600 mg Admin: 11/27/17 05:50 Dose: 600 mg Admin: 11/26/17 23:45 Dose: 600 mg Admin: 11/26/17 19:13 Dose: 600 mg Admin: 11/26/17 12:29 Dose: 600 mg Admin: 11/26/17 06:36 Dose: 600 mg Admin: 11/25/17 23:51 Dose: 600 mg Admin: 11/25/17 17:11 Dose: 600 mg Admin: 11/25/17 11:08 Dose: 600 mg Admin: 11/25/17 05:47 Dose: 600 mg Admin: 11/25/17 01:32 Dose: 600 mg Heparin Sodium (Porcine) (Heparin Sodium) 5,000 units SUBCUT Q12HR [facility] Last Admin: 11/30/17 08:59 Dose: 5,000 units Admin: 11/29/17 20:04 Dose: 5,000 units Meropenem 1 gm/ Sodium (Chloride) 100 mls @ 200 mls/hr IV Q8H [facility] Last Admin: 11/30/17 09:14 Dose: 200 mls/hr Infusion: 11/30/17 00:59 Dose: 200 mls/hr Admin: 11/30/17 00:29 Dose: 200 mls/hr Infusion: 11/29/17 18:14 Dose: 200 mls/hr Admin: 11/29/17 17:44 Dose: 200 mls/hr Infusion: 11/29/17 09:28 Dose: 200 mls/hr Admin: 11/29/17 08:58 Dose: 200 mls/hr Infusion: 11/29/17 00:47 Dose: 200 mls/hr Admin: 11/29/17 00:17 Dose: 200 mls/hr Infusion: 11/28/17 16:38 Dose: 200 mls/hr Admin: 11/28/17 16:08 Dose: 200 mls/hr Infusion: 11/28/17 09:07 Dose: 200 mls/hr Admin: 11/28/17 08:37 Dose: 200 mls/hr Infusion: 11/28/17 01:06 Dose: 200 mls/hr Admin: 11/28/17 00:36 Dose: 200 mls/hr Infusion: 11/27/17 17:23 Dose: 200 mls/hr Admin: 11/27/17 16:53 Dose: 200 mls/hr Infusion: 11/27/17 08:59 Dose: 200 mls/hr Admin: 11/27/17 08:29 Dose: 200 mls/hr Infusion: 11/27/17 01:08 Dose: 200 mls/hr Admin: 11/27/17 00:38 Dose: 200 mls/hr Infusion: 11/26/17 16:48 Dose: 200 mls/hr Admin: 11/26/17 16:18 Dose: 200 mls/hr Vancomycin HCl 1 gm/ Sodium (Chloride) 250 mls @ 166.667 mls/hr IV Q12H [facility] Last Admin: 11/30/17 05:19 Dose: 166.667 mls/hr Infusion: 11/29/17 17:06 Dose: 166.667 mls/hr Admin: 11/29/17 15:36 Dose: 166.667 mls/hr Infusion: 11/29/17 06:17 Dose: 166.667 mls/hr Admin: 11/29/17 04:47 Dose: 166.667 mls/hr Infusion: 11/28/17 18:43 Dose: 166.667 mls/hr Admin: 11/28/17 17:13 Dose: 166.667 mls/hr Sodium Chloride (Normal Saline) 1,000 mls @ 75 mls/hr IV ASDIRECTED [facility] Last Admin: 11/29/17 23:06 Dose: 75 mls/hr Oxycodone/Acetaminophen (Percocet 325-5 Mg) 1 tab PO Q12H PRN PRN Reason: pain Last Admin: 11/29/17 09:19 Dose: 1 tab Admin: 11/27/17 21:18 Dose: 1 tab Sodium Chloride (Saline Flush) 10 ml FLUSH ASDIRECTED PRN PRN Reason: Keep Vein Open Sodium Chloride (Saline Flush) 2.5 ml FLUSH ASDIRECTED PRN PRN Reason: Keep Vein Open Tamsulosin HCl (Flomax) 0.4 mg PO DAILY [facility] Last Admin: 11/30/17 08:58 Dose: 0.4 mg Admin: 11/29/17 08:58 Dose: 0.4 mg Admin: 11/28/17 08:36 Dose: 0.4 mg Admin: 11/27/17 08:29 Dose: 0.4 mg Admin: 11/26/17 08:09 Dose: 0.4 mg Admin: 11/25/17 08:31 Dose: 0.4 mg Vancomycin HCl (Pharmacy To Dose - Vancomycin) 1 dose .XX ASDIRECTED [facility] - Assessment Assessment (Free Text/Narrative):: respond well to treatment, afeb, vss, no pain, no purulent drainage; wound looked good; would continue present management; and ID consult re abx use and sure, a trip back to original surgeon re hardware management; from the way the wound looked, as if, possible, that the hard nieves is NOT exposed; still, a trip back to original surgeon would be benefitial; wound care, packing and drsg change everyday 1/4 in plain gauze with minimal moist, looking for 5 - 10 days; and po abx; fu with me 1 - 2 wks - Plan Plan (Free Text/Narrative):: respond well to treatment, afeb, vss, no pain, no purulent drainage; wound looked good; would continue present management; and ID consult re abx use and sure, a trip back to original surgeon re hardware management; from the way the wound looked, as if, possible, that the hard nieves is NOT exposed; still, a trip back to original surgeon would be benefitial; wound care, packing and drsg change everyday / in plain gauze with minimal moist, looking for 5 - 10 days; and po abx; fu with me 1 - 2 wks
--- NOTE | 2017-11-30 09:29 | PCM.SURGPN ---
- General Info Date of Service: 11/28/17 Functional Status: Reports: Pain Controlled - Review of Systems Gastrointestinal: Reports: No Symptoms - Patient Data Vitals - Most Recent: Last Vital Signs Temp 96.3 F 11/30/17 08:00 Pulse 99 11/30/17 08:58 Resp 22 H 11/30/17 08:00 BP 164/94 H 11/30/17 08:58 Pulse Ox 96 11/30/17 08:00 Weight - Most Recent: 187 lb 6.287 oz I&O - Last 24 Hours: Intake & Output 11/29/17 11/30/17 11/30/17 22:59 06:59 14:59 Intake Total 1334 1499 Output Total 0 Balance 1334 1499 Lab Results Last 24 Hrs: Laboratory Results - last 24 hr 11/29/17 11/29/17 11/30/17 Range/Units 09:29 09:29 05:12 WBC 8.08 7.65 (4.0-11.0) K/uL RBC 3.08 L 3.09 L (4.50-5.90) M/uL Hgb 8.8 L 8.7 L (13.0-17.0) g/dL Hct 26.8 L 26.7 L (38.0-50.0) % MCV 87.0 86.4 (80.0-98.0) fL MCH 28.6 28.2 (27.0-32.0) pg MCHC 32.8 32.6 (31.0-37.0) g/dL RDW Std Deviation 50.9 50.9 (28.0-62.0) fl RDW Coeff of Jeannie 16 H 16 H (11.0-15.0) % Plt Count 251 251 (150-400) K/uL MPV 8.50 8.80 (7.40-12.00) fL Neut % (Auto) 66.6 61.3 (48.0-80.0) % Lymph % (Auto) 12.0 L 17.4 (16.0-40.0) % Bethel % (Auto) 13.1 11.9 (0.0-15.0) % Eos % (Auto) 7.4 H 8.9 H (0.0-7.0) % Baso % (Auto) 0.9 0.5 (0.0-1.5) % Neut # (Auto) 5.4 4.7 (1.4-5.7) K/uL Lymph # (Auto) 1.0 1.3 (0.6-2.4) K/uL Bethel # (Auto) 1.1 H 0.9 H (0.0-0.8) K/uL Eos # (Auto) 0.6 0.7 (0.0-0.7) K/uL Baso # (Auto) 0.1 0.0 (0.0-0.1) K/uL Nucleated RBC % 0.0 0.0 /100WBC Nucleated RBCs # 0 0 K/uL Sodium 139 (136-146) mmol/L Potassium 3.8 (3.5-5.1) mmol/L Chloride 111 H (98-110) mmol/L Carbon Dioxide 20 L (21-31) mmol/L BUN 22 (6.0-23.0) mg/dL Creatinine 1.8 H (0.6-1.5) mg/dL Est Cr Clr Drug Dosing 41.25 mL/min Estimated GFR (MDRD) 37.6 ml/min Glucose 78 (60-110) mg/dL Calcium 8.1 L (8.8-10.8) mg/dL 11/30/17 Range/Units 05:12 WBC (4.0-11.0) K/uL RBC (4.50-5.90) M/uL Hgb (13.0-17.0) g/dL Hct (38.0-50.0) % MCV (80.0-98.0) fL MCH (27.0-32.0) pg MCHC (31.0-37.0) g/dL RDW Std Deviation (28.0-62.0) fl RDW Coeff of Jeannie (11.0-15.0) % Plt Count (150-400) K/uL MPV (7.40-12.00) fL Neut % (Auto) (48.0-80.0) % Lymph % (Auto) (16.0-40.0) % Bethel % (Auto) (0.0-15.0) % Eos % (Auto) (0.0-7.0) % Baso % (Auto) (0.0-1.5) % Neut # (Auto) (1.4-5.7) K/uL Lymph # (Auto) (0.6-2.4) K/uL Bethel # (Auto) (0.0-0.8) K/uL Eos # (Auto) (0.0-0.7) K/uL Baso # (Auto) (0.0-0.1) K/uL Nucleated RBC % /100WBC Nucleated RBCs # K/uL Sodium 141 (136-146) mmol/L Potassium 4.2 (3.5-5.1) mmol/L Chloride 113 H (98-110) mmol/L Carbon Dioxide 20 L (21-31) mmol/L BUN 24 H (6.0-23.0) mg/dL Creatinine 1.7 H (0.6-1.5) mg/dL Est Cr Clr Drug Dosing 43.68 mL/min Estimated GFR (MDRD) 40.2 ml/min Glucose 79 (60-110) mg/dL Calcium 8.1 L (8.8-10.8) mg/dL [place]bron Results Last 24 Hrs: Microbiology 11/27/17 16:30 Wound Culture - Final Back - Right Upper (Mrsa) Staphylococcus Aureus Med Orders - Current: Current Medications Acetaminophen (Tylenol Extra Strength) 1,000 mg PO TID PRN PRN Reason: Pain Last Admin: 11/29/17 20:13 Dose: 1,000 mg Albuterol/Ipratropium (Duoneb 3.0-0.5 Mg/3 Ml) 3 ml NEB Q4HRRT PRN PRN Reason: Wheezing Last Admin: 11/30/17 08:19 Dose: 3 ml Aspirin (Halfprin) 81 mg PO DAILY [facility] Last Admin: 11/30/17 08:59 Dose: 81 mg Atorvastatin Calcium (Lipitor) 20 mg PO DAILY [facility] Last Admin: 11/30/17 08:58 Dose: 20 mg Bupropion HCl (Wellbutrin Xl) 150 mg PO DAILY [facility] Last Admin: 11/30/17 08:58 Dose: 150 mg Carvedilol (Coreg) 3.125 mg PO BIDMEALS [facility] Last Admin: 11/30/17 08:58 Dose: 3.125 mg Gabapentin (Neurontin) 600 mg PO QID [facility] Last Admin: 11/30/17 05:22 Dose: 600 mg Heparin Sodium (Porcine) (Heparin Sodium) 5,000 units SUBCUT Q12HR [facility] Last Admin: 11/30/17 08:59 Dose: 5,000 units Meropenem 1 gm/ Sodium (Chloride) 100 mls @ 200 mls/hr IV Q8H [facility] Last Admin: 11/30/17 09:14 Dose: 200 mls/hr Vancomycin HCl 1 gm/ Sodium (Chloride) 250 mls @ 166.667 mls/hr IV Q12H [facility] Last Admin: 11/30/17 05:19 Dose: 166.667 mls/hr Sodium Chloride (Normal Saline) 1,000 mls @ 75 mls/hr IV ASDIRECTED [facility] Last Admin: 11/29/17 23:06 Dose: 75 mls/hr Oxycodone/Acetaminophen (Percocet 325-5 Mg) 1 tab PO Q12H PRN PRN Reason: pain Last Admin: 11/29/17 09:19 Dose: 1 tab Sodium Chloride (Saline Flush) 10 ml FLUSH ASDIRECTED PRN PRN Reason: Keep Vein Open Sodium Chloride (Saline Flush) 2.5 ml FLUSH ASDIRECTED PRN PRN Reason: Keep Vein Open Tamsulosin HCl (Flomax) 0.4 mg PO DAILY [facility] Last Admin: 11/30/17 08:58 Dose: 0.4 mg Vancomycin HCl (Pharmacy To Dose - Vancomycin) 1 dose .XX ASDIRECTED [facility] Discontinued Medications Enoxaparin Sodium (Lovenox) 40 mg SUBCUT DAILY [facility] Sodium Chloride (Normal Saline) 1,000 mls @ 75 mls/hr IV STAT [facility] Last Admin: 11/29/17 07:40 Dose: 125 mls/hr Amikacin Sulfate 400 mg/ (Dextrose/Water) 101.6 mls @ 100.594 mls/hr IV Q8H [facility] Last Admin: 11/25/17 02:18 Dose: 100.594 mls/hr Meropenem 1 gm/ Sodium (Chloride) 100 mls @ 200 mls/hr IV Q8H [facility] Last Admin: 11/26/17 08:16 Dose: 200 mls/hr Amikacin Sulfate 400 mg/ (Sodium Chloride) 101.6 mls @ 100 mls/hr IV Q8H [facility] Last Admin: 11/26/17 10:23 Dose: Not Given Amikacin Sulfate 350 mg/ (Sodium Chloride) 101.4 mls @ 99.792 mls/hr IV Q24H [facility] Amikacin Sulfate 400 mg/ (Sodium Chloride) 101.6 mls @ 100 mls/hr IV Q24H [facility] Last Admin: 11/27/17 01:19 Dose: 100 mls/hr Sodium Chloride (Normal Saline) 500 mls @ 500 mls/hr IV .BOLUS JOSE Sodium Chloride (Normal Saline) 500 mls @ 500 mls/hr IV .BOLUS [facility] Last Admin: 11/28/17 18:02 Dose: 500 mls/hr Lidocaine/Epinephrine (Xylocaine 1% With Epinephrine 1:100,000) 10 ml INJECT ONETIME ONE Stop: 11/27/17 16:06 Last Admin: 11/27/17 16:57 Dose: 10 ml Morphine Sulfate (Morphine) 2 mg IVPUSH ONETIME ONE Stop: 11/27/17 17:32 Last Admin: 11/27/17 21:23 Dose: 2 mg Morphine Sulfate (Morphine) Confirm Administered Dose 10 mg .ROUTE .STK-MED ONE Stop: 11/27/17 21:12 Last Admin: 11/27/17 21:27 Dose: Not Given Amikacin Pharmacy To (Dose) 0 each IVPUSH ASDIRECTED [facility]SE - Exam Wound/Incisions: Dressing Dry and Intact (drsg change, mod cloudy drainage persist, no cellulitis/tenderness, and wbc coming down nicely) GI/Abdominal Exam: Normal Bowel Sounds, Soft, Non-Tender, No Distention - Problem List Review Problem List Initiated/Reviewed/Updated: Yes - My Orders Last 24 Hours: Active Orders 24 hr Category Date Time Status Communication Order [RC] ROUTINE Care 11/29/17 09:42 Active RT Aerosol Therapy [RC] ASDIRECTED Care 11/29/17 13:08 Active BMP [BASIC METABOLIC PANEL,BMP] [CHEM] AM Lab 12/01/17 05:11 Ordered BMP [BASIC METABOLIC PANEL,BMP] [CHEM] AM Lab 12/02/17 05:11 Ordered BMP [BASIC METABOLIC PANEL,BMP] [CHEM] AM Lab 12/03/17 05:11 Ordered BMP [BASIC METABOLIC PANEL,BMP] [CHEM] AM Lab 12/04/17 05:11 Ordered BMP [BASIC METABOLIC PANEL,BMP] [CHEM] AM Lab 12/05/17 05:11 Ordered BMP [BASIC METABOLIC PANEL,BMP] [CHEM] AM Lab 12/06/17 05:11 Ordered BMP [BASIC METABOLIC PANEL,BMP] [CHEM] AM Lab 12/07/17 05:11 Ordered BMP [BASIC METABOLIC PANEL,BMP] [CHEM] AM Lab 12/08/17 05:11 Ordered BMP [BASIC METABOLIC PANEL,BMP] [CHEM] AM Lab 12/09/17 05:11 Ordered CBC WITH AUTO DIFF [HEME] AM Lab 12/01/17 05:11 Ordered CBC WITH AUTO DIFF [HEME] AM Lab 12/02/17 05:11 Ordered CBC WITH AUTO DIFF [HEME] AM Lab 12/03/17 05:11 Ordered CBC WITH AUTO DIFF [HEME] AM Lab 12/04/17 05:11 Ordered CBC WITH AUTO DIFF [HEME] AM Lab 12/05/17 05:11 Ordered CBC WITH AUTO DIFF [HEME] AM Lab 12/06/17 05:11 Ordered CBC WITH AUTO DIFF [HEME] AM Lab 12/07/17 05:11 Ordered CBC WITH AUTO DIFF [HEME] AM Lab 12/08/17 05:11 Ordered CBC WITH AUTO DIFF [HEME] AM Lab 12/09/17 05:11 Ordered VANCOMYCIN TROUGH [CHEM] Routine Lab 11/30/17 15:30 Ordered Albuterol/Ipratropium [DuoNeb 3.0-0.5 MG/3 ML] Med 11/29/17 13:08 Active 3 ml NEB Q4HRRT PRN Heparin Sodium Med 11/29/17 21:00 Active 5,000 units SUBCUT Q12HR Sodium Chloride 0.9% [Normal Saline] 1,000 ml Med 11/29/17 13:45 Active IV ASDIRECTED Medication Orders Acetaminophen (Tylenol Extra Strength) 1,000 mg PO TID PRN PRN Reason: Pain Last Admin: 11/29/17 20:13 Dose: 1,000 mg Admin: 11/29/17 11:18 Dose: 1,000 mg Admin: 11/28/17 21:46 Dose: 1,000 mg Admin: 11/28/17 06:01 Dose: 1,000 mg Admin: 11/27/17 03:21 Dose: 1,000 mg Admin: 11/26/17 19:19 Dose: 1,000 mg Admin: 11/26/17 06:30 Dose: 1,000 mg Admin: 12/30/17 22:22 Dose: 1,000 mg Admin: 11/25/17 09:07 Dose: 1,000 mg Admin: 11/25/17 01:32 Dose: 1,000 mg Albuterol/Ipratropium (Duoneb 3.0-0.5 Mg/3 Ml) 3 ml NEB Q4HRRT PRN PRN Reason: Wheezing Last Admin: 11/30/17 08:19 Dose: 3 ml Admin: 11/29/17 19:52 Dose: 3 ml Admin: 11/29/17 13:40 Dose: 3 ml Aspirin (Halfprin) 81 mg PO DAILY [facility] Last Admin: 11/30/17 08:59 Dose: 81 mg Admin: 11/29/17 08:58 Dose: 81 mg Admin: 11/28/17 08:36 Dose: 81 mg Admin: 11/27/17 08:29 Dose: 81 mg Admin: 11/26/17 08:09 Dose: 81 mg Admin: 11/25/17 08:31 Dose: 81 mg Atorvastatin Calcium (Lipitor) 20 mg PO DAILY [facility] Last Admin: 11/30/17 08:58 Dose: 20 mg Admin: 11/29/17 08:58 Dose: 20 mg Admin: 11/28/17 08:36 Dose: 20 mg Admin: 11/27/17 08:28 Dose: 20 mg Admin: 11/26/17 08:08 Dose: 20 mg Admin: 11/25/17 08:31 Dose: 20 mg Bupropion HCl (Wellbutrin Xl) 150 mg PO DAILY [facility] Last Admin: 11/30/17 08:58 Dose: 150 mg Admin: 11/29/17 08:58 Dose: 150 mg Admin: 11/28/17 08:36 Dose: 150 mg Admin: 11/27/17 08:29 Dose: 150 mg Admin: 11/26/17 08:08 Dose: 150 mg Admin: 11/25/17 08:32 Dose: 150 mg Carvedilol (Coreg) 3.125 mg PO BIDMEALS [facility] Last Admin: 11/30/17 08:58 Dose: 3.125 mg Admin: 11/29/17 17:07 Dose: 3.125 mg Admin: 11/29/17 09:04 Dose: 3.125 mg Admin: 11/28/17 16:19 Dose: 3.125 mg Admin: 11/28/17 08:36 Dose: 3.125 mg Admin: 11/27/17 16:54 Dose: 3.125 mg Admin: 11/27/17 08:28 Dose: 3.125 mg Admin: 11/26/17 16:06 Dose: 3.125 mg Admin: 11/26/17 08:16 Dose: 3.125 mg Admin: 11/25/17 16:27 Dose: 3.125 mg Admin: 11/25/17 08:31 Dose: 3.125 mg Gabapentin (Neurontin) 600 mg PO QID [facility] Last Admin: 11/30/17 05:22 Dose: 600 mg Admin: 11/30/17 00:28 Dose: 600 mg Admin: 11/29/17 17:06 Dose: 600 mg Admin: 11/29/17 11:18 Dose: 600 mg Admin: 11/29/17 06:24 Dose: 600 mg Admin: 11/29/17 00:16 Dose: 600 mg Admin: 11/28/17 17:13 Dose: 600 mg Admin: 11/28/17 11:50 Dose: 600 mg Admin: 11/28/17 05:59 Dose: 600 mg Admin: 11/28/17 00:37 Dose: 600 mg Admin: 11/27/17 18:51 Dose: 600 mg Admin: 11/27/17 11:05 Dose: 600 mg Admin: 11/27/17 05:50 Dose: 600 mg Admin: 11/26/17 23:45 Dose: 600 mg Admin: 11/26/17 19:13 Dose: 600 mg Admin: 11/26/17 12:29 Dose: 600 mg Admin: 11/26/17 06:36 Dose: 600 mg Admin: 11/25/17 23:51 Dose: 600 mg Admin: 11/25/17 17:11 Dose: 600 mg Admin: 11/25/17 11:08 Dose: 600 mg Admin: 11/25/17 05:47 Dose: 600 mg Admin: 11/25/17 01:32 Dose: 600 mg Heparin Sodium (Porcine) (Heparin Sodium) 5,000 units SUBCUT Q12HR [facility] Last Admin: 11/30/17 08:59 Dose: 5,000 units Admin: 11/29/17 20:04 Dose: 5,000 units Meropenem 1 gm/ Sodium (Chloride) 100 mls @ 200 mls/hr IV Q8H [facility] Last Admin: 11/30/17 09:14 Dose: 200 mls/hr Infusion: 11/30/17 00:59 Dose: 200 mls/hr Admin: 11/30/17 00:29 Dose: 200 mls/hr Infusion: 11/29/17 18:14 Dose: 200 mls/hr Admin: 11/29/17 17:44 Dose: 200 mls/hr Infusion: 11/29/17 09:28 Dose: 200 mls/hr Admin: 11/29/17 08:58 Dose: 200 mls/hr Infusion: 11/29/17 00:47 Dose: 200 mls/hr Admin: 11/29/17 00:17 Dose: 200 mls/hr Infusion: 11/28/17 16:38 Dose: 200 mls/hr Admin: 11/28/17 16:08 Dose: 200 mls/hr Infusion: 11/28/17 09:07 Dose: 200 mls/hr Admin: 11/28/17 08:37 Dose: 200 mls/hr Infusion: 11/28/17 01:06 Dose: 200 mls/hr Admin: 11/28/17 00:36 Dose: 200 mls/hr Infusion: 11/27/17 17:23 Dose: 200 mls/hr Admin: 11/27/17 16:53 Dose: 200 mls/hr Infusion: 11/27/17 08:59 Dose: 200 mls/hr Admin: 11/27/17 08:29 Dose: 200 mls/hr Infusion: 11/27/17 01:08 Dose: 200 mls/hr Admin: 11/27/17 00:38 Dose: 200 mls/hr Infusion: 11/26/17 16:48 Dose: 200 mls/hr Admin: 11/26/17 16:18 Dose: 200 mls/hr Vancomycin HCl 1 gm/ Sodium (Chloride) 250 mls @ 166.667 mls/hr IV Q12H [facility] Last Admin: 11/30/17 05:19 Dose: 166.667 mls/hr Infusion: 11/29/17 17:06 Dose: 166.667 mls/hr Admin: 11/29/17 15:36 Dose: 166.667 mls/hr Infusion: 11/29/17 06:17 Dose: 166.667 mls/hr Admin: 11/29/17 04:47 Dose: 166.667 mls/hr Infusion: 11/28/17 18:43 Dose: 166.667 mls/hr Admin: 11/28/17 17:13 Dose: 166.667 mls/hr Sodium Chloride (Normal Saline) 1,000 mls @ 75 mls/hr IV ASDIRECTED [facility] Last Admin: 11/29/17 23:06 Dose: 75 mls/hr Oxycodone/Acetaminophen (Percocet 325-5 Mg) 1 tab PO Q12H PRN PRN Reason: pain Last Admin: 11/29/17 09:19 Dose: 1 tab Admin: 11/27/17 21:18 Dose: 1 tab Sodium Chloride (Saline Flush) 10 ml FLUSH ASDIRECTED PRN PRN Reason: Keep Vein Open Sodium Chloride (Saline Flush) 2.5 ml FLUSH ASDIRECTED PRN PRN Reason: Keep Vein Open Tamsulosin HCl (Flomax) 0.4 mg PO DAILY [facility] Last Admin: 11/30/17 08:58 Dose: 0.4 mg Admin: 11/29/17 08:58 Dose: 0.4 mg Admin: 11/28/17 08:36 Dose: 0.4 mg Admin: 11/27/17 08:29 Dose: 0.4 mg Admin: 11/26/17 08:09 Dose: 0.4 mg Admin: 11/25/17 08:31 Dose: 0.4 mg Vancomycin HCl (Pharmacy To Dose - Vancomycin) 1 dose .XX ASDIRECTED [facility] - Assessment Assessment (Free Text/Narrative):: responded well to treatment, continue local wound care, 1/4 in iodoform packing daily, wet to dry - Plan Plan (Free Text/Narrative):: responded well to treatment, continue local wound care, 1/4 in iodoform packing daily, wet to dry
--- NOTE | 2017-11-30 09:31 | PCM.SURGPN ---
- General Info Date of Service: 11/29/17 Functional Status: Reports: Pain Controlled - Review of Systems General: Reports: No Symptoms Gastrointestinal: Reports: No Symptoms - Patient Data Vitals - Most Recent: Last Vital Signs Temp 96.3 F 11/30/17 08:00 Pulse 99 11/30/17 08:58 Resp 22 H 11/30/17 08:00 BP 164/94 H 11/30/17 08:58 Pulse Ox 96 11/30/17 08:00 Weight - Most Recent: 187 lb 6.287 oz I&O - Last 24 Hours: Intake & Output 11/29/17 11/30/17 11/30/17 22:59 06:59 14:59 Intake Total 1334 1499 Output Total 0 Balance 1334 1499 Lab Results Last 24 Hrs: Laboratory Results - last 24 hr 11/29/17 11/29/17 11/30/17 Range/Units 09:29 09:29 05:12 WBC 8.08 7.65 (4.0-11.0) K/uL RBC 3.08 L 3.09 L (4.50-5.90) M/uL Hgb 8.8 L 8.7 L (13.0-17.0) g/dL Hct 26.8 L 26.7 L (38.0-50.0) % MCV 87.0 86.4 (80.0-98.0) fL MCH 28.6 28.2 (27.0-32.0) pg MCHC 32.8 32.6 (31.0-37.0) g/dL RDW Std Deviation 50.9 50.9 (28.0-62.0) fl RDW Coeff of Jeannie 16 H 16 H (11.0-15.0) % Plt Count 251 251 (150-400) K/uL MPV 8.50 8.80 (7.40-12.00) fL Neut % (Auto) 66.6 61.3 (48.0-80.0) % Lymph % (Auto) 12.0 L 17.4 (16.0-40.0) % [place] % (Auto) 13.1 11.9 (0.0-15.0) % Eos % (Auto) 7.4 H 8.9 H (0.0-7.0) % Baso % (Auto) 0.9 0.5 (0.0-1.5) % Neut # (Auto) 5.4 4.7 (1.4-5.7) K/uL Lymph # (Auto) 1.0 1.3 (0.6-2.4) K/uL [place] # (Auto) 1.1 H 0.9 H (0.0-0.8) K/uL Eos # (Auto) 0.6 0.7 (0.0-0.7) K/uL Baso # (Auto) 0.1 0.0 (0.0-0.1) K/uL Nucleated RBC % 0.0 0.0 /100WBC Nucleated RBCs # 0 0 K/uL Sodium 139 (136-146) mmol/L Potassium 3.8 (3.5-5.1) mmol/L Chloride 111 H (98-110) mmol/L Carbon Dioxide 20 L (21-31) mmol/L BUN 22 (6.0-23.0) mg/dL Creatinine 1.8 H (0.6-1.5) mg/dL Est Cr Clr Drug Dosing 41.25 mL/min Estimated GFR (MDRD) 37.6 ml/min Glucose 78 (60-110) mg/dL Calcium 8.1 L (8.8-10.8) mg/dL 11/30/17 Range/Units 05:12 WBC (4.0-11.0) K/uL RBC (4.50-5.90) M/uL Hgb (13.0-17.0) g/dL Hct (38.0-50.0) % MCV (80.0-98.0) fL MCH (27.0-32.0) pg MCHC (31.0-37.0) g/dL RDW Std Deviation (28.0-62.0) fl RDW Coeff of Jeannie (11.0-15.0) % Plt Count (150-400) K/uL MPV (7.40-12.00) fL Neut % (Auto) (48.0-80.0) % Lymph % (Auto) (16.0-40.0) % [place] % (Auto) (0.0-15.0) % Eos % (Auto) (0.0-7.0) % Baso % (Auto) (0.0-1.5) % Neut # (Auto) (1.4-5.7) K/uL Lymph # (Auto) (0.6-2.4) K/uL [place] # (Auto) (0.0-0.8) K/uL Eos # (Auto) (0.0-0.7) K/uL Baso # (Auto) (0.0-0.1) K/uL Nucleated RBC % /100WBC Nucleated RBCs # K/uL Sodium 141 (136-146) mmol/L Potassium 4.2 (3.5-5.1) mmol/L Chloride 113 H (98-110) mmol/L Carbon Dioxide 20 L (21-31) mmol/L BUN 24 H (6.0-23.0) mg/dL Creatinine 1.7 H (0.6-1.5) mg/dL Est Cr Clr Drug Dosing 43.68 mL/min Estimated GFR (MDRD) 40.2 ml/min Glucose 79 (60-110) mg/dL Calcium 8.1 L (8.8-10.8) mg/dL [place] Results Last 24 Hrs: Microbiology 11/27/17 16:30 Wound Culture - Final Back - Right Upper (Mrsa) Staphylococcus Aureus Med Orders - Current: Current Medications Acetaminophen (Tylenol Extra Strength) 1,000 mg PO TID PRN PRN Reason: Pain Last Admin: 11/29/17 20:13 Dose: 1,000 mg Albuterol/Ipratropium (Duoneb 3.0-0.5 Mg/3 Ml) 3 ml NEB Q4HRRT PRN PRN Reason: Wheezing Last Admin: 11/30/17 08:19 Dose: 3 ml Aspirin (Halfprin) [address] [facility] Last Admin: 11/30/17 08:59 Dose: 81 mg Atorvastatin Calcium (Lipitor) [address] [facility] Last Admin: 11/30/17 08:58 Dose: 20 mg Bupropion HCl (Wellbutrin Xl) [address] [facility] Last Admin: 11/30/17 08:58 Dose: 150 mg Carvedilol (Coreg) 3.[address] [facility] Last Admin: 11/30/17 08:58 Dose: 3.125 mg Gabapentin (Neurontin) [address] [facility] Last Admin: 11/30/17 05:22 Dose: 600 mg Heparin Sodium (Porcine) (Heparin Sodium) 5,[address] [facility] Last Admin: 11/30/17 08:59 Dose: 5,000 units Meropenem 1 gm/ Sodium (Chloride) 100 mls @ 200 mls/hr IV Q8H [facility] Last Admin: 11/30/17 09:14 Dose: 200 mls/hr Vancomycin HCl 1 gm/ Sodium (Chloride) 250 mls @ 166.667 mls/hr IV Q12H [facility] Last Admin: 11/30/17 05:19 Dose: 166.667 mls/hr Sodium Chloride (Normal Saline) 1,000 mls @ 75 mls/hr IV ASDIRECTED [facility] Last Admin: 11/29/17 23:06 Dose: 75 mls/hr Oxycodone/Acetaminophen (Percocet 325-5 Mg) 1 tab PO Q12H PRN PRN Reason: pain Last Admin: 11/29/17 09:19 Dose: 1 tab Sodium Chloride (Saline Flush) 10 ml FLUSH ASDIRECTED PRN PRN Reason: Keep Vein Open Sodium Chloride (Saline Flush) 2.5 ml FLUSH ASDIRECTED PRN PRN Reason: Keep Vein Open Tamsulosin HCl (Flomax) 0.[address] [facility] Last Admin: 11/30/17 08:58 Dose: 0.4 mg Vancomycin HCl (Pharmacy To Dose - Vancomycin) [address] [facility] Discontinued Medications Enoxaparin Sodium (Lovenox) [address] [facility] Sodium Chloride (Normal Saline) 1,000 mls @ 75 mls/hr IV STAT [facility] Last Admin: 11/29/17 07:40 Dose: 125 mls/hr Amikacin Sulfate 400 mg/ (Dextrose/Water) 101.6 mls @ 100.594 mls/hr IV Q8H [facility] Last Admin: 11/25/17 02:18 Dose: 100.594 mls/hr Meropenem 1 gm/ Sodium (Chloride) 100 mls @ 200 mls/hr IV Q8H [facility] Last Admin: 11/26/17 08:16 Dose: 200 mls/hr Amikacin Sulfate 400 mg/ (Sodium Chloride) 101.6 mls @ 100 mls/hr IV Q8H [facility] Last Admin: 11/26/17 10:23 Dose: Not Given Amikacin Sulfate 350 mg/ (Sodium Chloride) 101.4 mls @ 99.792 mls/hr IV Q24H [facility] Amikacin Sulfate 400 mg/ (Sodium Chloride) 101.6 mls @ 100 mls/hr IV Q24H [facility] Last Admin: 11/27/17 01:19 Dose: 100 mls/hr Sodium Chloride (Normal Saline) 500 mls @ 500 mls/hr IV .BOLUS [facility] Sodium Chloride (Normal Saline) 500 mls @ 500 mls/hr IV .BOLUS [facility] Last Admin: 11/28/17 18:02 Dose: 500 mls/hr Lidocaine/Epinephrine (Xylocaine 1% With Epinephrine 1:100,000) 10 ml INJECT ONETIME ONE Stop: 11/27/17 16:06 Last Admin: 11/27/17 16:57 Dose: 10 ml Morphine Sulfate (Morphine) 2 mg IVPUSH ONETIME ONE Stop: 11/27/17 17:32 Last Admin: 11/27/17 21:23 Dose: 2 mg Morphine Sulfate (Morphine) Confirm Administered Dose 10 mg .ROUTE .STK-MED ONE Stop: 11/27/17 21:12 Last Admin: 11/27/17 21:27 Dose: Not Given Amikacin Pharmacy To (Dose) [address] [facility] - Exam Wound/Incisions: Dressing Dry and Intact (wound looked good per nursing staff, clear drainage persist, much less though, no cellulitis) - Problem List Review Problem List Initiated/Reviewed/Updated: Yes - My Orders Last 24 Hours: Active Orders 24 hr Category Date Time Status Communication Order [RC] ROUTINE Care 11/29/17 09:42 Active RT Aerosol Therapy [RC] ASDIRECTED Care 11/29/17 13:08 Active BMP [BASIC METABOLIC PANEL,BMP] [CHEM] AM Lab 12/01/17 05:11 Ordered BMP [BASIC METABOLIC PANEL,BMP] [CHEM] AM Lab 12/02/17 05:11 Ordered BMP [BASIC METABOLIC PANEL,BMP] [CHEM] AM Lab 12/03/17 05:11 Ordered BMP [BASIC METABOLIC PANEL,BMP] [CHEM] AM Lab 12/04/17 05:11 Ordered BMP [BASIC METABOLIC PANEL,BMP] [CHEM] AM Lab 12/05/17 05:11 Ordered BMP [BASIC METABOLIC PANEL,BMP] [CHEM] AM Lab 12/06/17 05:11 Ordered BMP [BASIC METABOLIC PANEL,BMP] [CHEM] AM Lab 12/07/17 05:11 Ordered BMP [BASIC METABOLIC PANEL,BMP] [CHEM] AM Lab 12/08/17 05:11 Ordered BMP [BASIC METABOLIC PANEL,BMP] [CHEM] AM Lab 12/09/17 05:11 Ordered CBC WITH AUTO DIFF [HEME] AM Lab 12/01/17 05:11 Ordered CBC WITH AUTO DIFF [HEME] AM Lab 12/02/17 05:11 Ordered CBC WITH AUTO DIFF [HEME] AM Lab 12/03/17 05:11 Ordered CBC WITH AUTO DIFF [HEME] AM Lab 12/04/17 05:11 Ordered CBC WITH AUTO DIFF [HEME] AM Lab 12/05/17 05:11 Ordered CBC WITH AUTO DIFF [HEME] AM Lab 12/06/17 05:11 Ordered CBC WITH AUTO DIFF [HEME] AM Lab 12/07/17 05:11 Ordered CBC WITH AUTO DIFF [HEME] AM Lab 12/08/17 05:11 Ordered CBC WITH AUTO DIFF [HEME] AM Lab 12/09/17 05:11 Ordered VANCOMYCIN TROUGH [CHEM] Routine Lab 11/30/17 15:30 Ordered Albuterol/Ipratropium [DuoNeb 3.0-0.5 MG/3 ML] Med 11/29/17 13:08 Active 3 ml NEB Q4HRRT PRN Heparin Sodium Med 11/29/17 21:00 Active 5,000 units SUBCUT Q12HR Sodium Chloride 0.9% [Normal Saline] 1,000 ml Med 11/29/17 13:45 Active IV ASDIRECTED Medication Orders Acetaminophen (Tylenol Extra Strength) 1,000 mg PO TID PRN PRN Reason: Pain Last Admin: 11/29/17 20:13 Dose: 1,000 mg Admin: 11/29/17 11:18 Dose: 1,000 mg Admin: 11/28/17 21:46 Dose: 1,000 mg Admin: 11/28/17 06:01 Dose: 1,000 mg Admin: 11/27/17 03:21 Dose: 1,000 mg Admin: 11/26/17 19:19 Dose: 1,000 mg Admin: 11/26/17 06:30 Dose: 1,000 mg Admin: 11/25/17 22:22 Dose: 1,000 mg Admin: 12/30/17 09:07 Dose: 1,000 mg Admin: 11/25/17 01:32 Dose: 1,000 mg Albuterol/Ipratropium (Duoneb 3.0-0.5 Mg/3 Ml) 3 ml NEB Q4HRRT PRN PRN Reason: Wheezing Last Admin: 11/30/17 08:19 Dose: 3 ml Admin: 11/29/17 19:52 Dose: 3 ml Admin: 11/29/17 13:40 Dose: 3 ml Aspirin (Halfprin) [address] [facility] Last Admin: 11/30/17 08:59 Dose: 81 mg Admin: 11/29/17 08:58 Dose: 81 mg Admin: 11/28/17 08:36 Dose: 81 mg Admin: 11/27/17 08:29 Dose: 81 mg Admin: 11/26/17 08:09 Dose: 81 mg Admin: 11/25/17 08:31 Dose: 81 mg Atorvastatin Calcium (Lipitor) [address] [facility] Last Admin: 11/30/17 08:58 Dose: 20 mg Admin: 11/29/17 08:58 Dose: 20 mg Admin: 11/28/17 08:36 Dose: 20 mg Admin: 11/27/17 08:28 Dose: 20 mg Admin: 11/26/17 08:08 Dose: 20 mg Admin: 11/25/17 08:31 Dose: 20 mg Bupropion HCl (Wellbutrin Xl) [address] [facility] Last Admin: 11/30/17 08:58 Dose: 150 mg Admin: 11/29/17 08:58 Dose: 150 mg Admin: 11/28/17 08:36 Dose: 150 mg Admin: 11/27/17 08:29 Dose: 150 mg Admin: 11/26/17 08:08 Dose: 150 mg Admin: 11/25/17 08:32 Dose: 150 mg Carvedilol (Coreg) 3.[address] [facility] Last Admin: 11/30/17 08:58 Dose: 3.125 mg Admin: 11/29/17 17:07 Dose: 3.125 mg Admin: 11/29/17 09:04 Dose: 3.125 mg Admin: 11/28/17 16:19 Dose: 3.125 mg Admin: 11/28/17 08:36 Dose: 3.125 mg Admin: 11/27/17 16:54 Dose: 3.125 mg Admin: 11/27/17 08:28 Dose: 3.125 mg Admin: 11/26/17 16:06 Dose: 3.125 mg Admin: 11/26/17 08:16 Dose: 3.125 mg Admin: 11/25/17 16:27 Dose: 3.125 mg Admin: 11/25/17 08:31 Dose: 3.125 mg Gabapentin (Neurontin) [address] [facility] Last Admin: 11/30/17 05:22 Dose: 600 mg Admin: 11/30/17 00:28 Dose: 600 mg Admin: 11/29/17 17:06 Dose: 600 mg Admin: 11/29/17 11:18 Dose: 600 mg Admin: 11/29/17 06:24 Dose: 600 mg Admin: 11/29/17 00:16 Dose: 600 mg Admin: 11/28/17 17:13 Dose: 600 mg Admin: 11/28/17 11:50 Dose: 600 mg Admin: 11/28/17 05:59 Dose: 600 mg Admin: 11/28/17 00:37 Dose: 600 mg Admin: 11/27/17 18:51 Dose: 600 mg Admin: 11/27/17 11:05 Dose: 600 mg Admin: 11/27/17 05:50 Dose: 600 mg Admin: 11/26/17 23:45 Dose: 600 mg Admin: 11/26/17 19:13 Dose: 600 mg Admin: 11/26/17 12:29 Dose: 600 mg Admin: 11/26/17 06:36 Dose: 600 mg Admin: 11/25/17 23:51 Dose: 600 mg Admin: 11/25/17 17:11 Dose: 600 mg Admin: 11/25/17 11:08 Dose: 600 mg Admin: 11/25/17 05:47 Dose: 600 mg Admin: 11/25/17 01:32 Dose: 600 mg Heparin Sodium (Porcine) (Heparin Sodium) 5,[address] [facility] Last Admin: 11/30/17 08:59 Dose: 5,000 units Admin: 11/29/17 20:04 Dose: 5,000 units Meropenem 1 gm/ Sodium (Chloride) 100 mls @ 200 mls/hr IV Q8H [facility] Last Admin: 11/30/17 09:14 Dose: 200 mls/hr Infusion: 11/30/17 00:59 Dose: 200 mls/hr Admin: 11/30/17 00:29 Dose: 200 mls/hr Infusion: 11/29/17 18:14 Dose: 200 mls/hr Admin: 11/29/17 17:44 Dose: 200 mls/hr Infusion: 11/29/17 09:28 Dose: 200 mls/hr Admin: 11/29/17 08:58 Dose: 200 mls/hr Infusion: 11/29/17 00:47 Dose: 200 mls/hr Admin: 11/29/17 00:17 Dose: 200 mls/hr Infusion: 11/28/17 16:38 Dose: 200 mls/hr Admin: 11/28/17 16:08 Dose: 200 mls/hr Infusion: 11/28/17 09:07 Dose: 200 mls/hr Admin: 11/28/17 08:37 Dose: 200 mls/hr Infusion: 11/28/17 01:06 Dose: 200 mls/hr Admin: 11/28/17 00:36 Dose: 200 mls/hr Infusion: 11/27/17 17:23 Dose: 200 mls/hr Admin: 11/27/17 16:53 Dose: 200 mls/hr Infusion: 11/27/17 08:59 Dose: 200 mls/hr Admin: 11/27/17 08:29 Dose: 200 mls/hr Infusion: 11/27/17 01:08 Dose: 200 mls/hr Admin: 11/27/17 00:38 Dose: 200 mls/hr Infusion: 11/26/17 16:48 Dose: 200 mls/hr Admin: 11/26/17 16:18 Dose: 200 mls/hr Vancomycin HCl 1 gm/ Sodium (Chloride) 250 mls @ 166.667 mls/hr IV Q12H [facility] Last Admin: 11/30/17 05:19 Dose: 166.667 mls/hr Infusion: 11/29/17 17:06 Dose: 166.667 mls/hr Admin: 11/29/17 15:36 Dose: 166.667 mls/hr Infusion: 11/29/17 06:17 Dose: 166.667 mls/hr Admin: 11/29/17 04:47 Dose: 166.667 mls/hr Infusion: 11/28/17 18:43 Dose: 166.667 mls/hr Admin: 11/28/17 17:13 Dose: 166.667 mls/hr Sodium Chloride (Normal Saline) 1,000 mls @ 75 mls/hr IV ASDIRECTED [facility] Last Admin: 11/29/17 23:06 Dose: 75 mls/hr Oxycodone/Acetaminophen (Percocet 325-5 Mg) 1 tab PO Q12H PRN PRN Reason: pain Last Admin: 11/29/17 09:19 Dose: 1 tab Admin: 11/27/17 21:18 Dose: 1 tab Sodium Chloride (Saline Flush) 10 ml FLUSH ASDIRECTED PRN PRN Reason: Keep Vein Open Sodium Chloride (Saline Flush) 2.5 ml FLUSH ASDIRECTED PRN PRN Reason: Keep Vein Open Tamsulosin HCl (Flomax) 0.[address] [facility] Last Admin: 11/30/17 08:58 Dose: 0.4 mg Admin: 11/29/17 08:58 Dose: 0.4 mg Admin: 11/28/17 08:36 Dose: 0.4 mg Admin: 11/27/17 08:29 Dose: 0.4 mg Admin: 11/26/17 08:09 Dose: 0.4 mg Admin: 11/25/17 08:31 Dose: 0.4 mg Vancomycin HCl (Pharmacy To Dose - Vancomycin) [address] [facility] - Assessment Assessment (Free Text/Narrative):: continue local wound care and iv abx - Plan Plan (Free Text/Narrative):: continue local wound care and iv abx
--- NOTE | 2017-11-30 10:00 | PCM.DCSUM1 ---
Discharge Summary - Hospital Course Free Text/Narrative:: 67 yo male admitted or ESBL UTI and Back Abscess. For UTI he was initially treated with Amikacin which was then switched to Meropenem due to WILLI. For his back abscess general surgery was consulted. Patient was seen by Dr. Ochoa who performed I&D. Cultures were obtained. Patient is to follow-up with Dr. Ochoa for his abscess. For his UTI he will be requiring senior living Meropenem. He is insistent on being discharged and returning three times daily for IV therapy. Picc line placed prior to discharge. His wound culture was postive for MRSA sensitive to bactrim therefore he was discharged on 12 days of bactrim after receiving vancomycin for 2 days. He was discharged 11/30/17 #ESBL UTI -PICC line placed on 11/28/17 -Meropenem 1 gm IV [id number] for 10 more days - prescription provided and patient is to return to hospital for treatments -f/u with PCP #Back Abscess -I&D performed on 11/27/[address] Ochoa general surgery -Wound culture positive for MRSA -discharged on Bactrim DS BID for 12 days - patient instructed to follow-up with PCP for monitoring of renal function -f/u with Dr. Ochoa #WILLI -Cr currently 1.7 -patient is to follow-up with his PCP within 1-2 weeks to monitor renal function due to him requiring Bactrim for his MRSA - Discharge Data Discharge Date: 11/30/17 Discharge Disposition: Home, Self-Care 01 Condition: Fair - Patient Summary/Data Operative Procedure(s) Performed: id of back abscess - Patient Instructions Diet: Usual Diet as Tolerated Activity: As Tolerated Showering/Bathing: May Shower Notify Provider of: Fever, Increased Pain, Swelling and Redness, Drainage, Nausea and/or Vomiting - Discharge Plan Prescriptions/Med Rec: Meropenem [Merrem] 1 gm IV Q8H 10 Days #30 dose Sulfamethoxazole/Trimethoprim [Bactrim Ds Tablet] 1 each PO BID 12 Days #24 tablet Home Medications: Home Meds Fluticasone/Salmeterol [Advair Diskus 250-50] 1 puff INH BID 04/21/17 [History] Aspirin [Ecotrin] 81 mg PO DAILY 05/04/17 [History] Albuterol Sulfate 2.5 mg NEB BID PRN 06/18/17 [History] Carvedilol 3.125 mg PO BIDMEALS 06/18/17 [History] Acetaminophen [Tylenol Extra Strength] 1,000 mg PO TID PRN 07/21/17 [History] Gabapentin [Neurontin] 600 mg PO QID 07/21/17 [History] Ibuprofen 600 mg PO ASDIRECTED PRN 07/21/17 [History] buPROPion [Wellbutrin XL] 150 mg PO DAILY 07/21/17 [History] Finasteride 5 mg PO DAILY 11/24/17 [History] Folic Acid 1 mg PO DAILY 11/24/17 [History] Iron,Carbonyl/Vit C/Vit B12/Fa [Iron 100 Plus Tablet] 1 each PO DAILY 11/24/17 [ History] Tamsulosin HCl 0.4 mg PO DAILY 11/24/17 [History] atorvaSTATin [Lipitor] 20 mg PO DAILY 11/24/17 [History] Meropenem [Merrem] 1 gm IV Q8H 10 Days #30 dose 11/30/17 [Rx] Sulfamethoxazole/Trimethoprim [Bactrim Ds Tablet] 1 each PO BID 12 Days #24 tablet 11/30/17 [Rx] Patient Handouts: Leukocytosis Referrals: Antonio Arias MD [Primary Care Provider] - 12/07/17 10:15 am (patient will need to have renal function checked ) - Discharge Summary/Plan Comment DC Time >30 min.: No - Patient Data Vitals - Most Recent: Last Vital Signs Temp 35.7 C 11/30/17 08:00 Pulse 99 11/30/17 08:58 Resp 22 H 11/30/17 08:00 BP 164/94 H 11/30/17 08:58 Pulse Ox 96 11/30/17 08:00 Weight - Most Recent: 85 kg I&O - Last 24 hours: Intake & Output 11/29/17 11/30/17 11/30/17 22:59 06:59 14:59 Intake Total 1334 1499 Output Total 0 Balance 1334 1499 Lab Results - Last 24 hrs: Laboratory Results - last 24 hr 11/29/17 11/30/17 11/30/17 Range/Units 09:29 05:12 05:12 WBC 7.65 (4.0-11.0) K/uL RBC 3.09 L (4.50-5.90) M/uL Hgb 8.7 L (13.0-17.0) g/dL Hct 26.7 L (38.0-50.0) % MCV 86.4 (80.0-98.0) fL MCH 28.2 (27.0-32.0) pg MCHC 32.6 (31.0-37.0) g/dL RDW Std Deviation 50.9 (28.0-62.0) fl RDW Coeff of Jeannie 16 H (11.0-15.0) % Plt Count 251 (150-400) K/uL MPV 8.80 (7.40-12.00) fL Neut % (Auto) 61.3 (48.0-80.0) % Lymph % (Auto) 17.4 (16.0-40.0) % [facility] % (Auto) 11.9 (0.0-15.0) % Eos % (Auto) 8.9 H (0.0-7.0) % Baso % (Auto) 0.5 (0.0-1.5) % Neut # (Auto) 4.7 (1.4-5.7) K/uL Lymph # (Auto) 1.3 (0.6-2.4) K/uL [facility] # (Auto) 0.9 H (0.0-0.8) K/uL Eos # (Auto) 0.7 (0.0-0.7) K/uL Baso # (Auto) 0.0 (0.0-0.1) K/uL Nucleated RBC % 0.0 /100WBC Nucleated RBCs # 0 K/uL Sodium 139 141 (136-146) mmol/L Potassium 3.8 4.2 (3.5-5.1) mmol/L Chloride 111 H 113 H (98-110) mmol/L Carbon Dioxide 20 L 20 L (21-31) mmol/L BUN 22 24 H (6.0-23.0) mg/dL Creatinine 1.8 H 1.7 H (0.6-1.5) mg/dL Est Cr Clr Drug Dosing 41.25 43.68 mL/min Estimated GFR (MDRD) 37.6 40.2 ml/min Glucose 78 79 (60-110) mg/dL Calcium 8.1 L 8.1 L (8.8-10.8) mg/dL AGNES Results - Last 24 hrs: Microbiology 11/27/17 16:30 Wound Culture - Final Back - Right Upper (Mrsa) Staphylococcus Aureus Med Orders - Current: Current Medications Acetaminophen (Tylenol Extra Strength) 1,000 mg PO TID PRN PRN Reason: Pain Last Admin: 11/29/17 20:13 Dose: 1,000 mg Albuterol/Ipratropium (Duoneb 3.0-0.5 Mg/3 Ml) 3 ml NEB Q4HRRT PRN PRN Reason: Wheezing Last Admin: 11/30/17 08:19 Dose: 3 ml Aspirin (Halfprin) 81 mg PO DAILY [facility] Last Admin: 11/30/17 08:59 Dose: 81 mg Atorvastatin Calcium (Lipitor) 20 mg PO DAILY [facility] Last Admin: 11/30/17 08:58 Dose: 20 mg Bupropion HCl (Wellbutrin Xl) 150 mg PO DAILY [facility] Last Admin: 11/30/17 08:58 Dose: 150 mg Carvedilol (Coreg) 3.125 mg PO BIDMEALS [facility] Last Admin: 11/30/17 08:58 Dose: 3.125 mg Gabapentin (Neurontin) 600 mg PO QID [facility] Last Admin: 11/30/17 05:22 Dose: 600 mg Heparin Sodium (Porcine) (Heparin Sodium) 5,000 units SUBCUT Q12HR [facility] Last Admin: 11/30/17 08:59 Dose: 5,000 units Meropenem 1 gm/ Sodium (Chloride) 100 mls @ 200 mls/hr IV Q8H [facility] Last Admin: 11/30/17 09:14 Dose: 200 mls/hr Vancomycin HCl 1 gm/ Sodium (Chloride) 250 mls @ 166.667 mls/hr IV Q12H [facility] Last Admin: 11/30/17 05:19 Dose: 166.667 mls/hr Sodium Chloride (Normal Saline) 1,000 mls @ 75 mls/hr IV ASDIRECTED [facility] Last Admin: 11/29/17 23:06 Dose: 75 mls/hr Oxycodone/Acetaminophen (Percocet 325-5 Mg) 1 tab PO Q12H PRN PRN Reason: pain Last Admin: 11/29/17 09:19 Dose: 1 tab Sodium Chloride (Saline Flush) 10 ml FLUSH ASDIRECTED PRN PRN Reason: Keep Vein Open Sodium Chloride (Saline Flush) 2.5 ml FLUSH ASDIRECTED PRN PRN Reason: Keep Vein Open Tamsulosin HCl (Flomax) 0.4 mg PO DAILY [facility] Last Admin: 11/30/17 08:58 Dose: 0.4 mg Vancomycin HCl (Pharmacy To Dose - Vancomycin) 1 dose .XX ASDIRECTED JOSE Discontinued Medications Enoxaparin Sodium (Lovenox) 40 mg SUBCUT DAILY [facility] Sodium Chloride (Normal Saline) 1,000 mls @ 75 mls/hr IV STAT [facility] Last Admin: 11/29/17 07:40 Dose: 125 mls/hr Amikacin Sulfate 400 mg/ (Dextrose/Water) 101.6 mls @ 100.594 mls/hr IV Q8H [facility] Last Admin: 11/25/17 02:18 Dose: 100.594 mls/hr Meropenem 1 gm/ Sodium (Chloride) 100 mls @ 200 mls/hr IV Q8H [facility] Last Admin: 11/26/17 08:16 Dose: 200 mls/hr Amikacin Sulfate 400 mg/ (Sodium Chloride) 101.6 mls @ 100 mls/hr IV Q8H [facility] Last Admin: 11/26/17 10:23 Dose: Not Given Amikacin Sulfate 350 mg/ (Sodium Chloride) 101.4 mls @ 99.792 mls/hr IV Q24H [facility] Amikacin Sulfate 400 mg/ (Sodium Chloride) 101.6 mls @ 100 mls/hr IV Q24H [facility] Last Admin: 11/27/17 01:19 Dose: 100 mls/hr Sodium Chloride (Normal Saline) 500 mls @ 500 mls/hr IV .BOLUS [facility] Sodium Chloride (Normal Saline) 500 mls @ 500 mls/hr IV .BOLUS [facility] Last Admin: 11/28/17 18:02 Dose: 500 mls/hr Lidocaine/Epinephrine (Xylocaine 1% With Epinephrine 1:100,000) 10 ml INJECT ONETIME ONE Stop: 11/27/17 16:06 Last Admin: 11/27/17 16:57 Dose: 10 ml Morphine Sulfate (Morphine) 2 mg IVPUSH ONETIME ONE Stop: 11/27/17 17:32 Last Admin: 11/27/17 21:23 Dose: 2 mg Morphine Sulfate (Morphine) Confirm Administered Dose 10 mg .ROUTE .STK-MED ONE Stop: 11/27/17 21:12 Last Admin: 11/27/17 21:27 Dose: Not Given Amikacin Pharmacy To (Dose) 0 each IVPUSH ASDIRECTED JOSE *Q Meaningful Use (DIS) - VTE *Q VTE Criteria *Q: - Stroke *Q Stroke Criteria *Q: - AMI *Q AMI Criteria *Q:
== END 2017-11-30 10:50 | disposition home or self-care (01) | DRG 988 ==
LOC: MW.ED 19:55 → MW.MS 22:07
PROVIDERS: ADMIT Internal Medicine; ATTEND Internal Medicine
PROC: 0J970ZZ Drainage of Back Subcutaneous Tissue and Fascia, Open Approach (ICD-10-PCS; principal; 2017-11-27)
PROC: 02HV33Z Insertion of Infusion Device into Superior Vena Cava, Percutaneous Approach (ICD-10-PCS; 2017-11-29)
DX: D72.829 Elevated white blood cell count, unspecified (principal); E78.00 Pure hypercholesterolemia, unspecified; I10 Essential (primary) hypertension; N39.0 Urinary tract infection, site not specified; Z87.440 Personal history of urinary (tract) infections; L02.212 Cutaneous abscess of back [any part, except buttock and flank]; N17.9 Acute kidney failure, unspecified; B96.1 Klebsiella pneumoniae [K. pneumoniae] as the cause of diseases classified elsewhere; B95.62 Methicillin resistant Staphylococcus aureus infection as the cause of diseases classified elsewhere; L89.899 Pressure ulcer of other site, unspecified stage; J44.9 Chronic obstructive pulmonary disease, unspecified; I48.0 Paroxysmal atrial fibrillation; Z88.8 Allergy status to other drugs, medicaments and biological substances; Z79.899 Other long term (current) drug therapy; Z79.82 Long term (current) use of aspirin; Z87.891 Personal history of nicotine dependence
CPT/HCPCS: 36415; 71010; 80053; 81001; 83605; 83880; 84484; 85025; 85610; 87040 ×2; 87086; 87088; 87186; 87804 ×2; 93005; 96360; 99285; J7040; 36569; 71046; 71046-26; 76937; 76937-26; 77001; 77001-26; 80048; 87070; 87077; 94640; 99284; A9270-GY; J0278; J1644; J2185; J2270; J3370; J7030; J7050; J7060

== ENCOUNTER 2017-12-22 16:00 | Observation (INO) | payer MEDICARE, OTHER ==
--- NOTE | 2017-12-22 16:26 | EDM.PDOC ---
<Mathieu Carter - Last Filed: 12/22/17 18:56> ED HPI GENERAL MEDICAL PROBLEM - General Chief Complaint: Genitourinary Problem Stated Complaint: UTI Time Seen by Provider: 12/22/17 16:26 Source of Information: Reports: Patient - History of Present Illness INITIAL COMMENTS - FREE TEXT/NARRATIVE: HISTORY AND PHYSICAL: History of present illness: [Patient well-known to the facility and myself Significant history of resistant Klebsiella urinary tract infections susceptible to meropenem, significant for multiple episodes of sepsis prolonged medical treatment over the last 6 months between [facility] in my note as well as here many records on file At current no fever mild nausea no vomiting no chest pain shortness breath headache dizziness or palpitation no bowel or urine symptoms Recent drainage of abscesses on his back wound vacs are in place he is on daptomycin for these with MRSA growth ] Review of systems: As per history of present illness and below otherwise all systems reviewed and negative. Past medical history: As per history of present illness and as reviewed below otherwise noncontributory. Surgical history: As per history of present illness and as reviewed below otherwise noncontributory. Social history: No reported history of drug or alcohol abuse. Family history: As per history of present illness and as reviewed below otherwise noncontributory. Physical exam: HEENT: Atraumatic, normocephalic, pupils reactive, negative for conjunctival pallor or scleral icterus, mucous membranes moist, throat clear, neck supple, nontender, trachea midline. Lungs: Clear to auscultation, breath sounds equal bilaterally, chest nontender. Heart: S1S2, regular, negative for clicks, rubs, or JVD. Abdomen: Soft, nondistended, nontender. Negative for masses or hepatosplenomegaly. Negative for costovertebral tenderness. Pelvis: Stable nontender. Genitourinary: Deferred. Rectal: Deferred. Extremities: Atraumatic, negative for cords or calf pain. Neurovascular unremarkable. Neuro: Awake, alert, oriented. Cranial nerves II through XII unremarkable. Cerebellum unremarkable. Motor and sensory unremarkable throughout. Exam nonfocal. Diagnostics: [CBC CMP UA troponin EKG chest 1 view blood cultures lactic acid ] Therapeutics: [Normal saline 1 25 mL per hour Patient awaiting lab considered for admission likely placed on meropenem ] Impression: [UTI]--[id number] organisms Hemodynamically stable at this time Chronic history of baseline Definitive disposition and diagnosis as appropriate pending reevaluation and review of above. neck Pain Score (Numeric/FACES): 5 - Related Data Allergies Allergy/AdvReac Type Severity Reaction Status Date / Time ertapenem [From Invanz] Allergy Other Verified 12/22/17 16:11 Home Meds: Home Meds Fluticasone/Salmeterol [Advair Diskus 250-50] 1 puff INH BID 04/21/17 [History] Aspirin [Ecotrin] 81 mg PO DAILY 05/04/17 [History] Albuterol Sulfate 2.5 mg NEB BID PRN 06/18/17 [History] Carvedilol 3.125 mg PO BIDMEALS 06/18/17 [History] Acetaminophen [Tylenol Extra Strength] 1,000 mg PO TID PRN 07/21/17 [History] Gabapentin [Neurontin] 600 mg PO QID 07/21/17 [History] Ibuprofen 600 mg PO ASDIRECTED PRN 07/21/17 [History] buPROPion [Wellbutrin XL] 150 mg PO DAILY 07/21/17 [History] Finasteride 5 mg PO DAILY 11/24/17 [History] Folic Acid 1 mg PO DAILY 11/24/17 [History] Iron,Carbonyl/Vit C/Vit B12/Fa [Iron 100 Plus Tablet] 1 each PO DAILY 11/24/17 [ History] Tamsulosin HCl 0.4 mg PO DAILY 11/24/17 [History] atorvaSTATin [Lipitor] 20 mg PO DAILY 11/24/17 [History] Meropenem [Merrem] 1 gm IV Q8H 10 Days #30 dose 11/30/17 [Rx] Sulfamethoxazole/Trimethoprim [Bactrim Ds Tablet] 1 each PO BID 12 Days #24 tablet 11/30/17 [Rx] Past Medical History - Past Health History Medical/Surgical History: Denies Medical/Surgical History HEENT History: Reports: Cataract, Impaired Vision Cardiovascular History: Reports: High Cholesterol, Hypertension Other Cardiovascular History: hypokalemia; he had post operative atrial fibrillation. He was placed on amiodarone earlier this year with intent being to use it temporarily as he has since remained in sinus rhythm. Respiratory History: Reports: COPD, Pneumothorax, SOB Other Respiratory History: flail chest. hemothorax Gastrointestinal History: Reports: None Genitourinary History: Reports: Pyelonephritis, UTI, Recurrent, Other (See Below ) Other Genitourinary History: urosepsis Musculoskeletal History: Reports: Fracture Neurological History: Reports: Concussion, Head Trauma, Neuropathy, Peripheral, Seizure Psychiatric History: Reports: Other (See Below) Other Psychiatric History: alcohol dependence with withdrawl delerium Endocrine/Metabolic History: Reports: None Hematologic History: Reports: Blood Transfusion(s) Immunologic History: Reports: None Oncologic (Cancer) History: Reports: None Dermatologic History: Reports: None - Infectious Disease History Infectious Disease History: Reports: Chicken Pox - Past Surgical History HEENT Surgical History: Reports: Cataract Surgery GI Surgical History: Reports: Colonoscopy Endocrine Surgical History: Reports: None Dermatological Surgical History: Reports: None Social & Family History - Family History Family Medical History: Noncontributory GI: Reports: Cirrhosis Oncologic: Reports: Colon, Prostate - Tobacco Use Smoking Status *Q: Former Smoker Years of Tobacco use: 30 Packs/Tins Daily: 2 Used Tobacco, but Quit: Yes Month Tobacco Last Used: 30 years ago Second Hand Smoke Exposure: No - Caffeine Use Caffeine Use: Reports: None - Recreational Drug Use Recreational Drug Use: No Course - Vital Signs Last Recorded V/S: Last Vital Signs Temp 37.7 C 12/22/17 16:11 Pulse 96 12/22/17 16:11 Resp 20 12/22/17 16:11 BP 126/68 12/22/17 16:11 Pulse Ox 97 12/22/17 16:11 - Orders/Labs/Meds Orders: Active Orders 24 hr Category Date Time Status EKG Documentation Completion [RC] STAT Care 12/22/17 16:25 Active Chest 1V Frontal [CR] Stat Exams 12/22/17 16:25 Taken COMPREHENSIVE METABOLIC PN,CMP [CHEM] Stat Lab 12/22/17 18:05 Received CULTURE BLOOD [BC] Stat Lab 12/22/17 18:15 Received CULTURE BLOOD [BC] Stat Lab 12/22/17 18:42 Received CULTURE URINE [RM] Stat Lab 12/22/17 18:30 Ordered TROPONIN I [CHEM] Stat Lab 12/22/17 18:05 Received Blood Culture x2 Reflex Set [OM.PC] Stat Oth 12/22/17 16:25 Ordered Labs: Laboratory Tests 12/22/17 12/22/17 Range/Units 18:05 18:05 WBC 18.60 H (4.0-11.0) K/uL RBC 2.91 L (4.50-5.90) M/uL Hgb 8.4 L (13.0-17.0) g/dL Hct 25.6 L (38.0-50.0) % MCV 88.0 (80.0-98.0) fL MCH 28.9 (27.0-32.0) pg MCHC 32.8 (31.0-37.0) g/dL RDW Std Deviation 54.1 (28.0-62.0) fl RDW Coeff of Jeannie 17 H (11.0-15.0) % Plt Count 226 (150-400) K/uL MPV 9.90 (7.40-12.00) fL Neut % (Auto) 78.5 (48.0-80.0) % Lymph % (Auto) 6.1 L (16.0-40.0) % [place] % (Auto) 12.3 (0.0-15.0) % Eos % (Auto) 2.7 (0.0-7.0) % Baso % (Auto) 0.4 (0.0-1.5) % Neut # (Auto) 14.6 H (1.4-5.7) K/uL Lymph # (Auto) 1.1 (0.6-2.4) K/uL [place] # (Auto) 2.3 H (0.0-0.8) K/uL Eos # (Auto) 0.5 (0.0-0.7) K/uL Baso # (Auto) 0.1 (0.0-0.1) K/uL Nucleated RBC % 0.0 /100WBC Nucleated RBCs # 0 K/uL Lactate 0.7 (0.20-2.00) mmol/L Meds: Medications Discontinued Medications Generic Name Dose Route Start Last Admin Trade Name Freq PRN Reason Stop Dose Admin Heparin Sodium (Porcine) 500 units 12/22/17 17:28 Heparin Lock Flush 100 Units/Ml FLUSH 12/22/17 17:29 NOW STA Heparin Sodium (Porcine) Confirm 12/22/17 17:49 Heparin Lock Flush 100 Units/Ml Administered 12/22/17 17:50 Dose 500 units .ROUTE .STK-MED ONE Heparin Sodium (Porcine) 500 units 12/22/17 18:05 Heparin Lock Flush 100 Units/Ml FLUSH 12/22/17 18:06 NOW STA Departure - Departure Disposition: Admitted As Inpatient 64 Clinical Impression: UTI, Urinary tract infectious disease - Discharge Information Referrals: Antonio Arias MD [Primary Care Provider] - Forms: ED Department Discharge <Alexy Martini - Last Filed: 12/22/17 19:14> ED ROS GENERAL - Review of Systems Review Of Systems: ROS reveals no pertinent complaints other than HPI. ED EXAM, GENERAL - Physical Exam Exam: See Below (See dictation) Departure - Departure Time of Disposition: 19:14 Condition: Good
[2017-12-22] MEDS ORDERED: Meropenem 1 GM in Sodium Chloride 0.9% 100 ML IV ONE (19:15)
[2017-12-22 19:28] LABS: CHLORIDE,CL 103 mmol/L (98-110); SODIUM,NA 135 mmol/L (136-146)
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
[2017-12-22] MEDS ORDERED: Lactated Ringers 500 ML IV ONE (20:50)
[2017-12-22] MEDS ORDERED: Albuterol 0.083% 2.5 MG/3 ML Neb Soln INH PRN (21:00)
[2017-12-22] MEDS ORDERED: oxyCODONE 5 MG Tab PO PRN (21:10)
[2017-12-22] MEDS ORDERED: Morphine 2 MG/ML Syringe IVPUSH PRN (21:15)
[2017-12-22] MEDS: Heparin Sodium 5,000 Units/ML Vial SUBCUT SCH (22:00)
[2017-12-22] MEDS: Acetaminophen 325 MG Tab PO PRN (22:01)
[2017-12-22] MEDS: Gabapentin 300 MG Cap PO SCH ×2 (22:06→23:45)
[2017-12-23] MEDS: Meropenem 1 GM in Sodium Chloride 0.9% 100 ML IV SCH ×3 (03:29→20:39)
[2017-12-23] MEDS: Acetaminophen 325 MG Tab PO PRN ×2 (03:45→18:30)
[2017-12-23] MEDS: Gabapentin 300 MG Cap PO SCH ×4 (05:03→23:34)
[2017-12-23] MEDS: Fluticasone/Salmeterol 250-50 MCG Inhalation Powder 14/Diskus INH SCH (06:17)
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
[2017-12-23] MEDS: Carvedilol 3.125 MG Tab PO SCH ×2 (08:07→18:13)
[2017-12-23] MEDS ORDERED: Calcium Carbonate 500 MG Tab.Chew PO ONE (08:46)
[2017-12-23] MEDS ORDERED: Magnesium Sulfate/Water 4 GM in Premix Bag 1 BAG IV ONE (08:47)
[2017-12-23] MEDS: QUEtiapine 25 MG Tab PO SCH (10:04)
[2017-12-23] MEDS: Tamsulosin 0.4 MG Cap.ER PO SCH (10:04)
[2017-12-23] MEDS: Folic Acid 1 MG Tab PO SCH (10:05)
[2017-12-23] MEDS: Aspirin 81 MG Tab.EC PO SCH (10:05)
[2017-12-23] MEDS: Heparin Sodium 5,000 Units/ML Vial SUBCUT SCH ×2 (10:05→20:41)
[2017-12-23] MEDS: atorvaSTATin 20 MG Tab PO SCH (10:06)
[2017-12-23] MEDS: Finasteride 5 MG Tab PO SCH (10:06)
[2017-12-23] MEDS: buPROPion 150 MG Tab.ER PO SCH (10:07)
[2017-12-23] MEDS ORDERED: Meropenem 1 GM in Sodium Chloride 0.9% 100 ML IV SCH (12:00)
[2017-12-23] MEDS: DAPTOmycin 500 MG Vial IVPUSH SCH (23:34)
[2017-12-24] MEDS: Meropenem 1 GM in Sodium Chloride 0.9% 100 ML IV SCH ×3 (03:49→19:39)
[2017-12-24] MEDS: Gabapentin 300 MG Cap PO SCH ×4 (05:58→23:56)
[2017-12-24] MEDS: Fluticasone/Salmeterol 250-50 MCG Inhalation Powder 14/Diskus INH SCH (06:04)
[2017-12-24] MEDS: Carvedilol 3.125 MG Tab PO SCH ×2 (08:42→17:40)
[2017-12-24] MEDS: QUEtiapine 25 MG Tab PO SCH (08:43)
[2017-12-24] MEDS: Finasteride 5 MG Tab PO SCH (08:45)
[2017-12-24] MEDS: Tamsulosin 0.4 MG Cap.ER PO SCH (08:45)
[2017-12-24] MEDS: buPROPion 150 MG Tab.ER PO SCH (08:45)
[2017-12-24] MEDS: atorvaSTATin 20 MG Tab PO SCH (08:45)
[2017-12-24] MEDS: Aspirin 81 MG Tab.EC PO SCH (08:45)
[2017-12-24] MEDS: Heparin Sodium 5,000 Units/ML Vial SUBCUT SCH ×2 (08:46→22:19)
[2017-12-24] MEDS: Folic Acid 1 MG Tab PO SCH (08:47)
[2017-12-24] MEDS ORDERED: Sodium Chloride 0.9% 1,000 ML IV ONE (10:28)
--- NOTE | 2017-12-24 10:59 | PCM.PN ---
- Review of Systems Systems Review Comment:: feeling well, no new complaints, no fevers. - Patient Data Vitals - Most Recent: Last Vital Signs Temp 36.7 C 12/24/17 08:00 Pulse 80 12/24/17 08:42 Resp 18 12/24/17 08:00 BP 109/56 L 12/24/17 08:42 Pulse Ox 95 12/24/17 08:00 Weight - Most Recent: 80.739 kg I&O - Last 24 Hours: Intake & Output 12/23/17 12/24/17 12/24/17 22:59 06:59 14:59 Intake Total 400 900 Balance 400 900 Lab Results Last 24 Hours: Laboratory Results - last 24 hr 12/24/17 12/24/17 Range/Units 06:03 06:03 WBC 8.78 (4.0-11.0) K/uL RBC 3.10 L (4.50-5.90) M/uL Hgb 9.0 L (13.0-17.0) g/dL Hct 27.6 L (38.0-50.0) % MCV 89.0 (80.0-98.0) fL MCH 29.0 (27.0-32.0) pg MCHC 32.6 (31.0-37.0) g/dL RDW Std Deviation 54.7 (28.0-62.0) fl RDW Coeff of Jeannie 17 H (11.0-15.0) % Plt Count 184 (150-400) K/uL MPV 9.60 (7.40-12.00) fL Neut % (Auto) 68.7 (48.0-80.0) % Lymph % (Auto) 11.5 L (16.0-40.0) % [place] % (Auto) 12.9 (0.0-15.0) % Eos % (Auto) 6.3 (0.0-7.0) % Baso % (Auto) 0.6 (0.0-1.5) % Neut # (Auto) 6.0 H (1.4-5.7) K/uL Lymph # (Auto) 1.0 (0.6-2.4) K/uL [place] # (Auto) 1.1 H (0.0-0.8) K/uL Eos # (Auto) 0.6 (0.0-0.7) K/uL Baso # (Auto) 0.1 (0.0-0.1) K/uL Nucleated RBC % 0.0 /100WBC Nucleated RBCs # 0 K/uL Sodium 136 (136-146) mmol/L Potassium 4.1 (3.5-5.1) mmol/L Chloride 104 (98-110) mmol/L Carbon Dioxide 25 (21-31) mmol/L BUN 25 H (6.0-23.0) mg/dL Creatinine 2.2 H (0.6-1.5) mg/dL Est Cr Clr Drug Dosing 33.61 mL/min Estimated GFR (MDRD) 29.8 ml/min Glucose 86 (60-110) mg/dL Calcium 8.8 (8.8-10.8) mg/dL Magnesium 1.9 (1.5-2.3) mEq/L Total Bilirubin 0.4 (0.1-1.5) mg/dL AST 18 (5-40) IU/L ALT 12 (8-54) IU/L Alkaline Phosphatase 127 (40-150) Total Protein 6.0 (6.0-8.0) g/dL Albumin 2.8 L (3.4-4.8) g/dL Globulin 3.2 (2.0-3.5) g/dL Albumin/Globulin Ratio 0.9 L (1.3-2.8) Lebron Results Last 24 Hours: Microbiology 12/23/17 03:00 Urine Culture - Final Urine, Clean Catch MIXED RONDA <1000 CFU/ML Med Orders - Current: Current Medications Acetaminophen (Tylenol) 650 mg PO Q4H PRN PRN Reason: Pain Last Admin: 12/23/17 18:30 Dose: 650 mg Albuterol (Proventil Neb Soln) 2.5 mg INH Q6H PRN PRN Reason: SHORTNESS OF BREATH Aspirin (Halfprin) 81 mg PO DAILY [facility] Last Admin: 12/24/17 08:45 Dose: 81 mg Atorvastatin Calcium (Lipitor) 20 mg PO DAILY [facility] Last Admin: 12/24/17 08:45 Dose: 20 mg Bupropion HCl (Wellbutrin Xl) 150 mg PO DAILY [facility] Last Admin: 12/24/17 08:45 Dose: 150 mg Carvedilol (Coreg) 3.125 mg PO BIDMEALS [facility] Last Admin: 12/24/17 08:42 Dose: 3.125 mg Daptomycin (Cubicin) 500 mg IVPUSH Q24H [facility] Last Admin: 12/23/17 23:34 Dose: 500 mg Finasteride (Proscar) 5 mg PO DAILY [facility] Last Admin: 12/24/17 08:45 Dose: 5 mg Folic Acid (Folic Acid) 1 mg PO DAILY [facility] Last Admin: 12/24/17 08:47 Dose: 1 mg Gabapentin (Neurontin) 600 mg PO QID [facility] Last Admin: 12/24/17 05:58 Dose: 600 mg Heparin Sodium (Porcine) (Heparin Sodium) 5,000 units SUBCUT Q12H [facility] Last Admin: 12/24/17 08:46 Dose: 5,000 units Meropenem 1 gm/ Sodium (Chloride) 100 mls @ 200 mls/hr IV Q8H [facility] Last Admin: 12/24/17 03:49 Dose: 200 mls/hr Sodium Chloride (Normal Saline) 1,000 mls @ 125 mls/hr IV ASDIRECTED [facility] Sodium Chloride (Normal Saline) 1,000 mls @ 1,000 mls/hr IV .Bolus ONE Stop: 12/24/17 11:27 Morphine Sulfate (Morphine) 2 mg IVPUSH Q2H PRN PRN Reason: PAIN Oxycodone HCl (Oxycodone) 5 mg PO Q6H PRN PRN Reason: Pain Quetiapine Fumarate (Seroquel) 25 mg PO DAILY [facility] Last Admin: 12/24/17 08:43 Dose: 25 mg Fluticasone/Salmeterol (Advair Diskus 250-50) 0 puff INH DAILYRT [facility] Last Admin: 12/24/17 06:04 Dose: 1 canister Tamsulosin HCl (Flomax) 0.4 mg PO DAILY [facility] Last Admin: 12/24/17 08:45 Dose: 0.4 mg Discontinued Medications Calcium Carbonate/Glycine (Tums) 1,000 mg PO ONETIME ONE Stop: 12/23/17 08:47 Last Admin: 12/23/17 10:06 Dose: 1,000 mg Heparin Sodium (Porcine) (Heparin Lock Flush 100 Units/Ml) 500 units FLUSH NOW STA Stop: 12/22/17 17:29 Last Admin: 12/22/17 17:28 Dose: 500 units Heparin Sodium (Porcine) (Heparin Lock Flush 100 Units/Ml) Confirm Administered Dose 500 units .ROUTE .STK-MED ONE Stop: 12/22/17 17:50 Last Admin: 12/22/17 19:33 Dose: Not Given Heparin Sodium (Porcine) (Heparin Lock Flush 100 Units/Ml) 500 units FLUSH NOW STA Stop: 12/22/17 18:06 Last Admin: 12/22/17 18:05 Dose: 500 units Meropenem 1 gm/ Sodium (Chloride) 100 mls @ 200 mls/hr IV ONETIME ONE Stop: 12/22/17 19:44 Last Admin: 12/22/17 19:41 Dose: 200 mls/hr Lactated Ringer's (Ringers, Lactated) 500 mls @ 250 mls/hr IV .BOLUS ONE Stop: 12/22/17 22:49 Last Admin: 12/22/17 21:55 Dose: 250 mls/hr Meropenem 1 gm/ Sodium (Chloride) 100 mls @ 200 mls/hr IV Q8H [facility] Magnesium Sulfate 4 gm/ Premix 100 mls @ 25 mls/hr IV ONETIME ONE Stop: 12/23/17 12:46 Last Admin: 12/23/17 10:04 Dose: 25 mls/hr - Exam General: Alert, Oriented Lungs: Clear to Auscultation, Normal Respiratory Effort Cardiovascular: Regular Rate, Regular Rhythm GI/Abdominal Exam: Soft, Non-Tender Extremities: Non-Tender, No Pedal Edema Skin: Warm, Dry, Intact Wound/Incisions: Other (wound vac on back and chest in place) - Problem List Review Problem List Initiated/Reviewed/Updated: Yes - My Orders Last 24 Hours: My Active Orders 12/24/17 10:28 Sodium Chloride 0.9% [Normal Saline] 1,000 ml IV .Bolus 12/24/17 10:30 Sodium Chloride 0.9% [Normal Saline] 1,000 ml IV ASDIRECTED - Plan Plan:: 67-year-old male admitted 12/22/17 with fevers and leukocytosis suspicious for ESBL Klebsiella pneumonia UTI Suspected ESBL Klebsiella pneumonia UTI: Leukocytosis resolved will continue meropenem. Patient does have appointment with ID and thoracic surgeon in [place] tomorrow. 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 continue Daptomycin VTE proph: SCD, Heparin
[2017-12-24] MEDS: Sodium Chloride 0.9% 1,000 ML IV SCH ×2 (12:09→22:27)
[2017-12-24] MEDS: DAPTOmycin 500 MG Vial IVPUSH SCH (22:22)
[2017-12-25] MEDS: Meropenem 1 GM in Sodium Chloride 0.9% 100 ML IV SCH ×2 (03:11→09:33)
[2017-12-25] MEDS: Acetaminophen 325 MG Tab PO PRN (03:50)
[2017-12-25] MEDS: Gabapentin 300 MG Cap PO SCH (05:10)
[2017-12-25] MEDS: Fluticasone/Salmeterol 250-50 MCG Inhalation Powder 14/Diskus INH SCH (05:54)
[2017-12-25] MEDS: Sodium Chloride 0.9% 1,000 ML IV SCH (06:29)
[2017-12-25] MEDS: buPROPion 150 MG Tab.ER PO SCH (08:15)
[2017-12-25] MEDS: Carvedilol 3.125 MG Tab PO SCH (08:18)
[2017-12-25] MEDS: QUEtiapine 25 MG Tab PO SCH (08:21)
[2017-12-25] MEDS: Tamsulosin 0.4 MG Cap.ER PO SCH (08:21)
[2017-12-25] MEDS: Aspirin 81 MG Tab.EC PO SCH (08:21)
[2017-12-25] MEDS: Finasteride 5 MG Tab PO SCH (08:21)
[2017-12-25] MEDS: Folic Acid 1 MG Tab PO SCH (08:21)
[2017-12-25] MEDS: atorvaSTATin 20 MG Tab PO SCH (08:22)
[2017-12-25 08:48] VITALS: BP 130/76
[2017-12-25] MEDS: Heparin Sodium 5,000 Units/ML Vial SUBCUT SCH (10:31)
--- NOTE | 2017-12-25 12:30 | CR ---
EXAM DATE: 12/22/17 PATIENT'S AGE: 67 Patient: COURTNEY PAEZ Facility: [place], [place] Site . Site : [id number] Study: XRay Chest [id number]/26/2018 7:09:14 PM Ordering Physician: Kelsey Murdock Final Report: INDICATIONS: Fever. TECHNIQUE: Chest 1 portable view. COMPARISON: Chest radiograph November 29, 2017. FINDINGS: Right PICC terminates in the lower SVC. No pneumothorax. Blunting of the bilateral costophrenic angles, right greater than left is unchanged. Linear bibasilar scarring or atelectasis. Aeration of the right lung base has improved. No focal airspace consolidation. Cardiac and mediastinal contours are within normal limits. Multilevel right rib plate and screw fixation, as before. IMPRESSION: No radiographic evidence of pneumonia. Blunting of the bilateral costophrenic angles versus pleural effusions, unchanged. Dictated by Tenzin Garcia MD @ 12/22/2017 7:18:12 PM Dictated by: Tenzin Garcia MD @ 12/22/2017 19:18:38 (Electronic Signature) Report Signed by Proxy. [facility]
--- NOTE | 2017-12-25 17:25 | PCM.DCSUM1 ---
<[place] - Last Filed: 12/25/17 17:26> Discharge Summary - Hospital Course Free Text/Narrative:: Admission date: December 22, 2017 Discharge date: December 25, 2017 Admission diagnosis: #1. ESBL UTI #2. Acute kidney injury #3. COPD history #4. Paroxysmal atrial fibrillation Discharge diagnosis: #1. UTI requiring long-term antibiotics #2. Acute kidney injury 3. History of paroxysmal atrial fibrillation, COPD, multiple rib fractures, chest wall abscess, c. diff Hospital course: This is a 67-year-old male with the above-mentioned medical history that presented with fevers and chills found to have a positive urinalysis for UTI. The patient is admitted for IV antibiotic therapy along with monitoring of his atrial fibrillation, acute kidney injury. Patient does have a lengthy history of UTI secondary to Klebsiella. Patient placed on IV meropenem when she did respond decently well too. In regards to his atrial fibrillation, the patient is normal sinus during hospital stay. Kidney function appear to be stable. Prior to admission, the patient does have a follow-up with cardiothoracic surgery in regards to his chest wall abscess today. Was advised to the patient given that he is clinically stable, he could go home on IV antibiotics where he would return for treatment. Given that the patient has a appointment for cardiac thoracic surgery along with infectious disease, the patient was discharged home without an IV antibiotic order given that he may have a change in regimen after seeing the specialists. Patient and agreed to the plan. Patient was advised to return if symptoms recur or worsen. - Discharge Data Discharge Date: 12/25/17 Discharge Disposition: Home, Self-Care 01 Condition: Good - Discharge Plan Home Medications: Home Meds Fluticasone/Salmeterol [Advair Diskus 250-50] 1 puff INH DAILY 04/21/17 [History ] Aspirin [Ecotrin] 81 mg PO DAILY 05/04/17 [History] Albuterol Sulfate 2.5 mg NEB Q6HR PRN 06/18/17 [History] Carvedilol 3.125 mg PO BIDMEALS 06/18/17 [History] buPROPion [Wellbutrin XL] 150 mg PO DAILY 07/21/17 [History] Finasteride 5 mg PO DAILY 11/24/17 [History] Folic Acid 1 mg PO DAILY 11/24/17 [History] Tamsulosin HCl 0.4 mg PO DAILY 11/24/17 [History] atorvaSTATin [Lipitor] 20 mg PO DAILY 11/24/17 [History] DAPTOmycin [Cubicin] 500 mg IV DAILY 12/22/17 [History] QUEtiapine [SEROquel] 25 mg PO DAILY 12/22/17 [History] Patient Handouts: Urinary Tract Infection, Adult, [id number] Referrals: Antonio Arias MD [Primary Care Provider] - - Discharge Summary/Plan Comment Discharge Summary/Plan Comment: Admission date: December 22, 2017 Discharge date: December 25, 2017 Admission diagnosis: #1. ESBL UTI #2. Acute kidney injury #3. COPD history #4. Paroxysmal atrial fibrillation Discharge diagnosis: #1. UTI requiring long-term antibiotics #2. Acute kidney injury 3. History of paroxysmal atrial fibrillation, COPD, multiple rib fractures, chest wall abscess, c. diff Hospital course: This is a 67-year-old male with the above-mentioned medical history that presented with fevers and chills found to have a positive urinalysis for UTI. The patient is admitted for IV antibiotic therapy along with monitoring of his atrial fibrillation, acute kidney injury. Patient does have a lengthy history of UTI secondary to Klebsiella. Patient placed on IV meropenem when she did respond decently well too. In regards to his atrial fibrillation, the patient is normal sinus during hospital stay. Kidney function appear to be stable. Prior to admission, the patient does have a follow-up with cardiothoracic surgery in regards to his chest wall abscess today. Was advised to the patient given that he is clinically stable, he could go home on IV antibiotics where he would return for treatment. Given that the patient has a appointment for cardiac thoracic surgery along with infectious disease, the patient was discharged home without an IV antibiotic order given that he may have a change in regimen after seeing the specialists. Patient and agreed to the plan. Patient was advised to return if symptoms recur or worsen. - Patient Data Vitals - Most Recent: Last Vital Signs Temp 36.6 C 12/25/17 08:00 Pulse 106 H 12/25/17 08:18 Resp 20 12/25/17 08:00 BP 122/73 12/25/17 08:18 Pulse Ox 92 L 12/25/17 08:00 Weight - Most Recent: 80.739 kg I&O - Last 24 hours: Intake & Output 12/25/17 12/25/17 12/25/17 06:59 14:59 22:59 Intake Total 1806 100 Balance 1806 100 Med Orders - Current: Current Medications Discontinued Medications Acetaminophen (Tylenol) 650 mg PO Q4H PRN PRN Reason: Pain Last Admin: 12/25/17 03:50 Dose: 650 mg Albuterol (Proventil Neb Soln) 2.5 mg INH Q6H PRN PRN Reason: SHORTNESS OF BREATH Aspirin (Halfprin) 81 mg PO DAILY [facility] Last Admin: 12/25/17 08:21 Dose: 81 mg Atorvastatin Calcium (Lipitor) 20 mg PO DAILY [facility] Last Admin: 12/25/17 08:22 Dose: 20 mg Bupropion HCl (Wellbutrin Xl) 150 mg PO DAILY [facility] Last Admin: 12/25/17 08:15 Dose: 150 mg Calcium Carbonate/Glycine (Tums) 1,000 mg PO ONETIME ONE Stop: 12/23/17 08:47 Last Admin: 12/23/17 10:06 Dose: 1,000 mg Carvedilol (Coreg) 3.125 mg PO BIDMEALS [facility] Last Admin: 12/25/17 08:18 Dose: 3.125 mg Daptomycin (Cubicin) 500 mg IVPUSH Q24H [facility] Last Admin: 12/24/17 22:22 Dose: 500 mg Finasteride (Proscar) 5 mg PO DAILY [facility] Last Admin: 12/25/17 08:21 Dose: 5 mg Folic Acid (Folic Acid) 1 mg PO DAILY [facility] Last Admin: 12/25/17 08:21 Dose: 1 mg Gabapentin (Neurontin) 600 mg PO QID [facility] Last Admin: 12/25/17 05:10 Dose: 600 mg Heparin Sodium (Porcine) (Heparin Lock Flush 100 Units/Ml) 500 units FLUSH NOW STA Stop: 12/22/17 17:29 Last Admin: 12/22/17 17:28 Dose: 500 units Heparin Sodium (Porcine) (Heparin Lock Flush 100 Units/Ml) Confirm Administered Dose 500 units .ROUTE .STK-MED ONE Stop: 12/22/17 17:50 Last Admin: 12/22/17 19:33 Dose: Not Given Heparin Sodium (Porcine) (Heparin Lock Flush 100 Units/Ml) 500 units FLUSH NOW STA Stop: 12/22/17 18:06 Last Admin: 12/22/17 18:05 Dose: 500 units Heparin Sodium (Porcine) (Heparin Sodium) 5,000 units SUBCUT Q12H [facility] Last Admin: 12/25/17 10:31 Dose: Not Given Meropenem 1 gm/ Sodium (Chloride) 100 mls @ 200 mls/hr IV ONETIME ONE Stop: 12/22/17 19:44 Last Admin: 12/22/17 19:41 Dose: 200 mls/hr Lactated Ringer's (Ringers, Lactated) 500 mls @ 250 mls/hr IV .BOLUS ONE Stop: 12/22/17 22:49 Last Admin: 12/22/17 21:55 Dose: 250 mls/hr Meropenem 1 gm/ Sodium (Chloride) 100 mls @ 200 mls/hr IV Q8H [facility] Last Admin: 12/25/17 09:33 Dose: 200 mls/hr Meropenem 1 gm/ Sodium (Chloride) 100 mls @ 200 mls/hr IV Q8H [facility] Magnesium Sulfate 4 gm/ Premix 100 mls @ 25 mls/hr IV ONETIME ONE Stop: 12/23/17 12:46 Last Admin: 12/23/17 10:04 Dose: 25 mls/hr Sodium Chloride (Normal Saline) 1,000 mls @ 125 mls/hr IV ASDIRECTED [facility] Last Admin: 12/25/17 06:29 Dose: 125 mls/hr Sodium Chloride (Normal Saline) 1,000 mls @ 1,000 mls/hr IV .Bolus ONE Stop: 12/24/17 11:27 Last Admin: 12/24/17 11:00 Dose: 1,000 mls/hr Morphine Sulfate (Morphine) 2 mg IVPUSH Q2H PRN PRN Reason: PAIN Oxycodone HCl (Oxycodone) 5 mg PO Q6H PRN PRN Reason: Pain Quetiapine Fumarate (Seroquel) 25 mg PO DAILY [facility] Last Admin: 12/25/17 08:21 Dose: 25 mg Fluticasone/Salmeterol ([facility] 250-50) [facility] Last Admin: 12/25/17 05:54 Dose: 1 canister Tamsulosin HCl (Flomax) 0.4 mg PO DAILY [facility] Last Admin: 12/25/17 08:21 Dose: 0.4 mg *Q Meaningful Use (DIS) - VTE *Q VTE Criteria *Q: - Stroke *Q Stroke Criteria *Q: - AMI *Q AMI Criteria *Q: <Roger Corey Efrain - Last Filed: 12/29/17 11:03> - Patient Data Vitals - Most Recent: Last Vital Signs Temp 36.6 C 12/25/17 08:00 Pulse 106 H 12/25/17 08:18 Resp 20 12/25/17 08:00 BP 122/73 12/25/17 08:18 Pulse Ox 92 L 12/25/17 08:00 Med Orders - Current: Current Medications Discontinued Medications Acetaminophen (Tylenol) 650 mg PO Q4H PRN PRN Reason: Pain Last Admin: 12/25/17 03:50 Dose: 650 mg Albuterol (Proventil Neb Soln) 2.5 mg INH Q6H PRN PRN Reason: SHORTNESS OF BREATH Aspirin (Halfprin) 81 mg PO DAILY [facility] Last Admin: 12/25/17 08:21 Dose: 81 mg Atorvastatin Calcium (Lipitor) 20 mg PO DAILY [facility] Last Admin: 12/25/17 08:22 Dose: 20 mg Bupropion HCl (Wellbutrin Xl) 150 mg PO DAILY [facility] Last Admin: 12/25/17 08:15 Dose: 150 mg Calcium Carbonate/Glycine (Tums) 1,000 mg PO ONETIME ONE Stop: 12/23/17 08:47 Last Admin: 12/23/17 10:06 Dose: 1,000 mg Carvedilol (Coreg) 3.125 mg PO BIDMEALS [facility] Last Admin: 12/25/17 08:18 Dose: 3.125 mg Daptomycin (Cubicin) 500 mg IVPUSH Q24H [facility] Last Admin: 12/24/17 22:22 Dose: 500 mg Finasteride (Proscar) 5 mg PO DAILY [facility] Last Admin: 12/25/17 08:21 Dose: 5 mg Folic Acid (Folic Acid) 1 mg PO DAILY [facility] Last Admin: 12/25/17 08:21 Dose: 1 mg Gabapentin (Neurontin) 600 mg PO QID [facility] Last Admin: 12/25/17 05:10 Dose: 600 mg Heparin Sodium (Porcine) (Heparin Lock Flush 100 Units/Ml) 500 units FLUSH NOW STA Stop: 12/22/17 17:29 Last Admin: 12/22/17 17:28 Dose: 500 units Heparin Sodium (Porcine) (Heparin Lock Flush 100 Units/Ml) Confirm Administered Dose 500 units .ROUTE .STK-MED ONE Stop: 12/22/17 17:50 Last Admin: 12/22/17 19:33 Dose: Not Given Heparin Sodium (Porcine) (Heparin Lock Flush 100 Units/Ml) 500 units FLUSH NOW STA Stop: 12/22/17 18:06 Last Admin: 12/22/17 18:05 Dose: 500 units Heparin Sodium (Porcine) (Heparin Sodium) 5,000 units SUBCUT Q12H [facility] Last Admin: 12/25/17 10:31 Dose: Not Given Meropenem 1 gm/ Sodium (Chloride) 100 mls @ 200 mls/hr IV ONETIME ONE Stop: 12/22/17 19:44 Last Admin: 12/22/17 19:41 Dose: 200 mls/hr Lactated Ringer's (Ringers, Lactated) 500 mls @ 250 mls/hr IV .BOLUS ONE Stop: 12/22/17 22:49 Last Admin: 12/22/17 21:55 Dose: 250 mls/hr Meropenem 1 gm/ Sodium (Chloride) 100 mls @ 200 mls/hr IV Q8H [facility] Last Admin: 12/25/17 09:33 Dose: 200 mls/hr Meropenem 1 gm/ Sodium (Chloride) 100 mls @ 200 mls/hr IV Q8H [facility] Magnesium Sulfate 4 gm/ Premix 100 mls @ 25 mls/hr IV ONETIME ONE Stop: 12/23/17 12:46 Last Admin: 12/23/17 10:04 Dose: 25 mls/hr Sodium Chloride (Normal Saline) 1,000 mls @ 125 mls/hr IV ASDIRECTED [facility] Last Admin: 12/25/17 06:29 Dose: 125 mls/hr Sodium Chloride (Normal Saline) 1,000 mls @ 1,000 mls/hr IV .Bolus ONE Stop: 12/24/17 11:27 Last Admin: 12/24/17 11:00 Dose: 1,000 mls/hr Morphine Sulfate (Morphine) 2 mg IVPUSH Q2H PRN PRN Reason: PAIN Oxycodone HCl (Oxycodone) 5 mg PO Q6H PRN PRN Reason: Pain Quetiapine Fumarate (Seroquel) 25 mg PO DAILY [facility] Last Admin: 12/25/17 08:21 Dose: 25 mg Fluticasone/Salmeterol (Advair Diskus 250-50) 0 puff INH DAILYRT [facility] Last Admin: 12/25/17 05:54 Dose: 1 canister Tamsulosin HCl (Flomax) 0.4 mg PO DAILY [facility] Last Admin: 12/25/17 08:21 Dose: 0.4 mg *Q Meaningful Use (DIS) - VTE *Q VTE Criteria *Q: - Stroke *Q Stroke Criteria *Q: - AMI *Q AMI Criteria *Q: - Free Text/Narrative Note: I have examined the patient. I have discussed findings and treatment plan with resident. I agree with the assessment and plan outlined in the following resident's note.
== END 2017-12-25 10:10 | disposition home or self-care (01) ==
LOC: MW.ED 16:00 → INTOOBSV 19:36 → MW.MS 19:36
PROVIDERS: ADMIT Family Medicine; ATTEND Family Medicine
DX: N39.0 Urinary tract infection, site not specified (principal); N17.9 Acute kidney failure, unspecified; I48.0 Paroxysmal atrial fibrillation; J44.9 Chronic obstructive pulmonary disease, unspecified; L02.213 Cutaneous abscess of chest wall; E78.00 Pure hypercholesterolemia, unspecified; E03.9 Hypothyroidism, unspecified; E87.6 Hypokalemia; G62.9 Polyneuropathy, unspecified; R56.9 Unspecified convulsions; B96.1 Klebsiella pneumoniae [K. pneumoniae] as the cause of diseases classified elsewhere; Z16.12 Extended spectrum beta lactamase (ESBL) resistance; Z87.440 Personal history of urinary (tract) infections; Z87.891 Personal history of nicotine dependence; Z79.82 Long term (current) use of aspirin; Z79.51 Long term (current) use of inhaled steroids; Z79.2 Long term (current) use of antibiotics; Z79.899 Other long term (current) drug therapy; Z80.49 Family history of malignant neoplasm of other genital organs; Z88.1 Allergy status to other antibiotic agents; Z98.49 Cataract extraction status, unspecified eye; Z98.890 Other specified postprocedural states
CPT/HCPCS: 36415; 71045; 80053; 83605; 83735; 84100; 84484; 85025; 87040; 87086; 87804; 94640; 96374; 96375; 96376; 99285; A9270; J0878; J1642; J1644; J2185; J3475; J7030; J7040; J7120; 99283

== ENCOUNTER 2018-02-25 14:10 | Emergency (ER) | payer MEDICARE, OTHER ==
[2018-02-25 14:31] VITALS: BP 129/75
[2018-02-25] MEDS ORDERED: Ketorolac 60 MG/2 ML SDV IM ONE (14:34)
--- NOTE | 2018-02-25 14:55 | EDM.PDOC ---
ED HPI GENERAL MEDICAL PROBLEM - General Chief Complaint: General Stated Complaint: PAIN ON SIDE OF CHEST Time Seen by Provider: 02/25/18 14:41 Source of Information: Reports: Patient History Limitations: Reports: No Limitations - History of Present Illness INITIAL COMMENTS - FREE TEXT/NARRATIVE: History of present illness: []Patient has had shingles and has been treated but has post herpetic pain. Patient is leaving for vacation this week. He is not had any fevers or any other complaints at this time Review of systems: As per history of present illness and below otherwise all systems reviewed and negative. Past medical history: As per history of present illness and as reviewed below otherwise noncontributory. Surgical history: As per history of present illness and as reviewed below otherwise noncontributory. Social history: No reported history of drug or alcohol abuse. Family history: As per history of present illness and as reviewed below otherwise noncontributory. Physical exam: General: Well developed, well nourished in NAD HEENT: Atraumatic, normocephalic, pupils reactive, negative for conjunctival pallor or scleral icterus, mucous membranes moist, throat clear, neck supple, nontender, trachea midline. Lungs: Clear to auscultation, breath sounds equal bilaterally, chest wall tender there are multiple ulcerated lesions along his right chest wall from posterior to anterior. No signs of secondary infection noted Heart: S1S2, regular, negative for clicks, rubs, or JVD. Abdomen: Soft, nondistended, nontender. Negative for masses or hepatosplenomegaly. Negative for costovertebral tenderness. Pelvis: Stable nontender. Genitourinary: Deferred. Rectal: Deferred. Extremities: Atraumatic, negative for cords or calf pain. Neurovascular unremarkable. Neuro: Awake, alert, oriented. Cranial nerves II through XII unremarkable. Cerebellum unremarkable. Motor and sensory unremarkable throughout. Exam nonfocal. Diagnostics: [] Therapeutics: [] Impression: []Shingles pain Plan: []Santa 5/325, 10 tablets through instruments and a prescription for 30 more tablets as directed Definitive disposition and diagnosis as appropriate pending reevaluation and review of above. right lower chest Pain Score (Numeric/FACES): 10 - Related Data Allergies Allergy/AdvReac Type Severity Reaction Status Date / Time ertapenem [From Invanz] Allergy Other Verified 02/25/18 14:26 Home Meds: Home Meds Fluticasone/Salmeterol [Advair Diskus 250-50] 1 puff INH DAILY 04/21/17 [History ] Aspirin [Ecotrin] 81 mg PO DAILY 05/04/17 [History] Albuterol Sulfate 2.5 mg NEB Q6HR PRN 06/18/17 [History] Carvedilol 3.125 mg PO BIDMEALS 06/18/17 [History] buPROPion [Wellbutrin XL] 150 mg PO DAILY 07/21/17 [History] Finasteride 5 mg PO DAILY 11/24/17 [History] Folic Acid 1 mg PO DAILY 11/24/17 [History] Tamsulosin HCl 0.4 mg PO DAILY 11/24/17 [History] atorvaSTATin [Lipitor] 20 mg PO DAILY 11/24/17 [History] DAPTOmycin [Cubicin] 500 mg IV DAILY 12/22/17 [History] QUEtiapine [SEROquel] 25 mg PO DAILY 12/22/17 [History] Past Medical History - Past Health History Medical/Surgical History: Denies Medical/Surgical History HEENT History: Reports: Cataract, Impaired Vision Cardiovascular History: Reports: High Cholesterol, Hypertension Other Cardiovascular History: hypokalemia; he had post operative atrial fibrillation. He was placed on amiodarone earlier this year with intent being to use it temporarily as he has since remained in sinus rhythm. Respiratory History: Reports: COPD, Pneumothorax, SOB Other Respiratory History: flail chest. hemothorax Gastrointestinal History: Reports: None Genitourinary History: Reports: Pyelonephritis, UTI, Recurrent, Other (See Below ) Other Genitourinary History: urosepsis Musculoskeletal History: Reports: Fracture Neurological History: Reports: Concussion, Head Trauma, Neuropathy, Peripheral, Seizure Psychiatric History: Reports: Other (See Below) Other Psychiatric History: alcohol dependence with withdrawl delerium Endocrine/Metabolic History: Reports: None Hematologic History: Reports: Blood Transfusion(s) Immunologic History: Reports: None Oncologic (Cancer) History: Reports: None Dermatologic History: Reports: None - Infectious Disease History Infectious Disease History: Reports: Chicken Pox - Past Surgical History HEENT Surgical History: Reports: Cataract Surgery GI Surgical History: Reports: Colonoscopy Endocrine Surgical History: Reports: None Dermatological Surgical History: Reports: None Social & Family History - Family History Family Medical History: Noncontributory GI: Reports: Cirrhosis Oncologic: Reports: Colon, Prostate - Tobacco Use Smoking Status *Q: Former Smoker Years of Tobacco use: 30 Packs/Tins Daily: 2 Used Tobacco, but Quit: Yes Month/Year Tobacco Last Used: 1999 Second Hand Smoke Exposure: No - Caffeine Use Caffeine Use: Reports: None - Recreational Drug Use Recreational Drug Use: No ED ROS GENERAL - Review of Systems Review Of Systems: See Below (See history of present illness) ED EXAM, GENERAL - Physical Exam Exam: See Below (See history of present illness) Course - Vital Signs Last Recorded V/S: Last Vital Signs Temp 97.1 F 02/25/18 14:28 Pulse 77 02/25/18 14:28 Resp 18 02/25/18 14:28 BP 129/75 02/25/18 14:28 Pulse Ox 96 02/25/18 14:28 - Orders/Labs/Meds Meds: Medications Discontinued Medications Generic Name Dose Route Start Last Admin Trade Name Freq PRN Reason Stop Dose Admin Ketorolac Tromethamine 60 mg 02/25/18 14:34 02/25/18 14:45 Toradol IM 02/25/18 14:35 60 mg ONETIME ONE Administration Departure - Departure Time of Disposition: 14:53 Disposition: Home, Self-Care 01 Condition: Good Clinical Impression: Shingles Qualifiers: Herpes zoster complications: unspecified herpes zoster complication Qualified Code(s): B02.8 - Zoster with other complications - Discharge Information Referrals: Antonio Arias MD [Primary Care Provider] -
== END 2018-02-25 15:11 | disposition home or self-care (01) ==
LOC: MW.ED 14:10
DX: B02.8 Zoster with other complications (principal); E78.00 Pure hypercholesterolemia, unspecified; I10 Essential (primary) hypertension; J44.9 Chronic obstructive pulmonary disease, unspecified; Z88.8 Allergy status to other drugs, medicaments and biological substances; Z79.82 Long term (current) use of aspirin; Z79.899 Other long term (current) drug therapy; Z87.440 Personal history of urinary (tract) infections; Z87.891 Personal history of nicotine dependence
CPT/HCPCS: 96372; 99282; J1885

== ENCOUNTER 2018-03-17 05:16 | Inpatient (IN) | payer MEDICARE, OTHER ==
[2018-03-17] MEDS ORDERED: Sodium Chloride 0.9% 500 ML IV SCH (06:15)
[2018-03-17] MEDS ORDERED: Meropenem 1 GM in Sodium Chloride 0.9% 100 ML IV ONE (06:16)
[2018-03-17] MEDS ORDERED: Ibuprofen 600 MG Tab PO ONE (06:20)
--- NOTE | 2018-03-17 06:27 | EDM.PDOC ---
ED HPI GENERAL MEDICAL PROBLEM - General Chief Complaint: Genitourinary Problem Stated Complaint: AMBULANCE Time Seen by Provider: 03/17/18 06:10 - History of Present Illness INITIAL COMMENTS - FREE TEXT/NARRATIVE: HISTORY AND PHYSICAL: History of present illness: Patient is a 68-year-old white male with history of recurrent UTI who also is currently on suppressive therapy for C. difficile in the form of vancomycin daily patient's history includes UTI that is only responsive to meropenem today presents with fever chills there's been no vomiting no chest pain no shortness of breath he denies abdominal or back pain Review of systems: As per history of present illness and below otherwise all systems reviewed and negative. Past medical history: As per history of present illness and as reviewed below otherwise noncontributory. Surgical history: As per history of present illness and as reviewed below otherwise noncontributory. Social history: No reported history of drug or alcohol abuse. Family history: As per history of present illness and as reviewed below otherwise noncontributory. Physical exam: HEENT: Atraumatic, normocephalic, pupils reactive, negative for conjunctival pallor or scleral icterus, mucous membranes moist, throat clear, neck supple, nontender, trachea midline. Lungs: Clear to auscultation, breath sounds equal bilaterally, chest nontender. Heart: S1S2, regular, negative for clicks, rubs, or JVD. Abdomen: Soft, nondistended, nontender. Negative for masses or hepatosplenomegaly. Negative for costovertebral tenderness. Pelvis: Stable nontender. Genitourinary: Deferred. Rectal: Deferred. Extremities: Atraumatic, negative for cords or calf pain. Neurovascular unremarkable. Neuro: Awake, alert, oriented. Cranial nerves II through XII unremarkable. Cerebellum unremarkable. Motor and sensory unremarkable throughout. Exam nonfocal. Diagnostics: CBC CMP blood cultures 2 lactic acid UA urine culture chest x-ray EKG Therapeutics: Normal saline 1 L bolus meropenem 1 g IV Motrin 400 mg by mouth Impression: #1 urosepsis Definitive disposition and diagnosis as appropriate pending reevaluation and review of above. Treatments [employer]: Reports: Acetaminophen flank area Pain Score (Numeric/FACES): 2 - Related Data Allergies Allergy/AdvReac Type Severity Reaction Status Date / Time ertapenem [From Invanz] Allergy Other Verified 03/17/18 05:28 Home Meds: Home Meds Fluticasone/Salmeterol [Advair Diskus 250-50] 1 puff INH DAILY 04/21/17 [History ] Aspirin [Ecotrin] 81 mg PO DAILY 05/04/17 [History] Albuterol Sulfate 2.5 mg NEB Q6HR PRN 06/18/17 [History] Carvedilol 3.125 mg PO BIDMEALS 06/18/17 [History] Finasteride 5 mg PO DAILY 11/24/17 [History] Folic Acid 1 mg PO DAILY 11/24/17 [History] Tamsulosin HCl 0.4 mg PO DAILY 11/24/17 [History] atorvaSTATin [Lipitor] 20 mg PO DAILY 11/24/17 [History] Albuterol/Ipratropium [Combivent Respimat] 1 inh INH ASDIRECTED 03/17/18 [ History] Doxycycline [Doxycycline Monohydrate] 100 mg PO BID 03/17/18 [History] Gabapentin [Neurontin] 300 mg PO BID 03/17/18 [History] Rifampin 300 mg PO DAILY 03/17/18 [History] Tiotropium [Spiriva HandiHaler] 1 inh INH ASDIRECTED 03/17/18 [History] Past Medical History - Past Health History Medical/Surgical History: Denies Medical/Surgical History HEENT History: Reports: Cataract, Impaired Vision Cardiovascular History: Reports: High Cholesterol, Hypertension Other Cardiovascular History: hypokalemia; he had post operative atrial fibrillation. He was placed on amiodarone earlier this year with intent being to use it temporarily as he has since remained in sinus rhythm. Respiratory History: Reports: COPD, Pneumothorax, SOB Other Respiratory History: flail chest. hemothorax Gastrointestinal History: Reports: None Genitourinary History: Reports: Pyelonephritis, UTI, Recurrent, Other (See Below ) Other Genitourinary History: urosepsis Musculoskeletal History: Reports: Fracture Neurological History: Reports: Concussion, Head Trauma, Neuropathy, Peripheral, Seizure Psychiatric History: Reports: None Other Psychiatric History: alcohol dependence with withdrawl delerium Endocrine/Metabolic History: Reports: None Hematologic History: Reports: Blood Transfusion(s) Immunologic History: Reports: None Oncologic (Cancer) History: Reports: None Dermatologic History: Reports: None - Infectious Disease History Infectious Disease History: Reports: Shingles - Past Surgical History HEENT Surgical History: Reports: Cataract Surgery GI Surgical History: Reports: Colonoscopy Endocrine Surgical History: Reports: None Dermatological Surgical History: Reports: None Social & Family History - Family History Family Medical History: Noncontributory GI: Reports: Cirrhosis Oncologic: Reports: Colon, Prostate - Tobacco Use Smoking Status *Q: Never Smoker Years of Tobacco use: 30 Packs/Tins Daily: 2 Used Tobacco, but Quit: Yes Month/Year Tobacco Last Used: 1999 Second Hand Smoke Exposure: No - Caffeine Use Caffeine Use: Reports: None - Recreational Drug Use Recreational Drug Use: No ED ROS GENERAL - Review of Systems Review Of Systems: ROS reveals no pertinent complaints other than HPI. ED EXAM, GENERAL - Physical Exam Exam: See Below (See dictation) Course - Vital Signs Last Recorded V/S: Last Vital Signs Temp 38.6 C H 03/17/18 06:02 Pulse 89 03/17/18 06:02 Resp 19 03/17/18 05:25 BP 79/45 L 03/17/18 06:02 Pulse Ox 93 L 03/17/18 06:02 - Orders/Labs/Meds Orders: Active Orders 24 hr Category Date Time Status EKG 12 Lead [EKG Documentation Completion] [RC] STAT Care 03/17/18 06:20 Active Chest 1V Frontal [CR] Stat Exams 03/17/18 06:19 Ordered COMPREHENSIVE METABOLIC PN,CMP [CHEM] Stat Lab 03/17/18 05:29 Received UA W/MICROSCOPIC [URIN] Stat Lab 03/17/18 05:29 Ordered Meropenem [Merrem] 1 gm Med 03/17/18 06:16 Active Sodium Chloride 0.9% [Normal Saline] 100 ml IV ONETIME Sodium Chloride 0.9% [Normal Saline] 500 ml Med 03/17/18 06:15 Active IV .BOLUS Medication Orders Sodium Chloride (Normal Saline) 500 mls @ 999 mls/hr IV .BOLUS JOSE Last Admin: 03/17/18 06:14 Dose: 999 mls/hr Meropenem 1 gm/ Sodium (Chloride) 100 mls @ 200 mls/hr IV ONETIME ONE Stop: 03/17/18 06:45 Labs: Laboratory Tests 03/17/18 03/17/18 03/17/18 Range/Units 05:29 05:29 05:29 WBC 21.81 H (4.0-11.0) K/uL RBC 3.04 L (4.50-5.90) M/uL Hgb 8.7 L (13.0-17.0) g/dL Hct 26.5 L (38.0-50.0) % MCV 87.2 (80.0-98.0) fL MCH 28.6 (27.0-32.0) pg MCHC 32.8 (31.0-37.0) g/dL RDW Std Deviation 47.9 (28.0-62.0) fl RDW Coeff of Jeannie 15 (11.0-15.0) % Plt Count 341 (150-400) K/uL MPV 9.10 (7.40-12.00) fL Add Manual Diff YES Neutrophils % (Manual) 85 H (48.0-80.0) % Band Neutrophils % 6 % Lymphocytes % (Manual) 6 L (16.0-40.0) % Basophils % (Manual) 3 H (0.0-1.5) % Nucleated RBC % 0.0 /100WBC Absolute Seg Neuts 18.5 H (1.4-5.7) Band Neutrophils # 1.3 Lymphocytes # (Manual) 1.3 (0.6-2.4) Basophils # (Manual) 0.7 H (0.0-0.1) Nucleated RBCs # 0 K/uL Lactate 1.9 (0.20-2.00) mmol/L Urine Color YELLOW Urine Appearance HAZY Urine pH 5.5 (5.0-8.0) Ur Specific [place] 1.010 (1.001-1.035) Urine Protein 30 (NEGATIVE) mg/dL Urine Glucose (UA) NEGATIVE (NEGATIVE) mg/dL Urine Ketones NEGATIVE (NEGATIVE) mg/dL Urine Occult Blood LARGE H (NEGATIVE) Urine Nitrite NEGATIVE (NEGATIVE) Urine Bilirubin NEGATIVE (NEGATIVE) Urine Urobilinogen 0.2 (<2.0) EU/dL Ur Leukocyte Esterase MODERATE (NEGATIVE) Urine RBC 30-35 (0-2/HPF) Urine WBC 45-50 (0-5/HPF) Ur Epithelial Cells RARE (NONE-FEW) Urine Bacteria 3+ H (NEGATIVE) Meds: Medications Generic Name Dose Route Start Last Admin Trade Name Freq PRN Reason Stop Dose Admin Sodium Chloride 500 mls @ 999 mls/hr 03/17/18 06:15 03/17/18 06:14 Normal Saline IV 999 mls/hr .BOLUS JOSE Administration Meropenem 1 gm/ Sodium 100 mls @ 200 mls/hr 03/17/18 06:16 Chloride IV 03/17/18 06:45 ONETIME ONE Discontinued Medications Generic Name Dose Route Start Last Admin Trade Name Harrisq PRN Reason Stop Dose Admin Ibuprofen 600 mg 03/17/18 06:20 Motrin PO 03/17/18 06:21 ONETIME ONE Departure - Departure Time of Disposition: 06:26 Disposition: Admitted As Inpatient 64 Condition: Serious Clinical Impression: UTI (urinary tract infection), Sepsis - Discharge Information Referrals: PCP,None [Primary Care Provider] - Forms: ED Department Discharge - My Orders Last 24 Hours: My Active Orders 03/17/18 05:29 COMPREHENSIVE METABOLIC PN,CMP [CHEM] Stat UA W/MICROSCOPIC [URIN] Stat 03/17/18 06:15 Sodium Chloride 0.9% [Normal Saline] 500 ml IV .BOLUS 03/17/18 06:16 Meropenem [Merrem] 1 gm Sodium Chloride 0.9% [Normal Saline] 100 ml IV ONETIME 03/17/18 06:19 Chest 1V Frontal [CR] Stat 03/17/18 06:20 EKG 12 Lead [EKG Documentation Completion] [RC] STAT - Assessment/Plan Last 24 Hours: My Active Orders 03/17/18 05:29 COMPREHENSIVE METABOLIC PN,CMP [CHEM] Stat UA W/MICROSCOPIC [URIN] Stat 03/17/18 06:15 Sodium Chloride 0.9% [Normal Saline] 500 ml IV .BOLUS 03/17/18 06:16 Meropenem [Merrem] 1 gm Sodium Chloride 0.9% [Normal Saline] 100 ml IV ONETIME 03/17/18 06:19 Chest 1V Frontal [CR] Stat 03/17/18 06:20 EKG 12 Lead [EKG Documentation Completion] [RC] STAT
[2018-03-17] MEDS ORDERED: Sodium Chloride 0.9% 1,000 ML IV ONE ×2 (06:30→15:07)
[2018-03-17] MEDS: Sodium Chloride 0.9% 1,000 ML IV SCH ×3 (08:00→16:11)
[2018-03-17] MEDS ORDERED: Albumin 25% 12.5 GM/50 ML BAG IV ONE ×4 (08:12→08:15)
[2018-03-17] MEDS ORDERED: RIFAMPIN 300 MG PO SCH (09:00)
[2018-03-17] MEDS ORDERED: Tiotropium Inhaler 18 MCG Inhalation Powder Cap Kit of 5 INH SCH (09:00)
[2018-03-17] MEDS ORDERED: Acetaminophen 325 MG Tab PO PRN (09:09)
[2018-03-17] MEDS ORDERED: Lidocaine 2% 5 ML SDV ONE (09:41)
--- NOTE | 2018-03-17 10:18 | PCM.SN ---
- Free Text/Narrative Note: Pt admitted to ICU with urosepsis, I was consulted for arterial line placement. Mr Mark has a complicated medical history which I am familiar with from his previous admissions. Right wrist was prepped and draped in sterile fashion. Rt radial artery is palpated, 20g arrow catheter was introduced into the artery , good pulsatile blood return was noted ;however, I was unable to advance the guidewire into position. Needle was withdrawn and pressure was held for 5 minutes. Lt wrist was then prepped and draped in sterile fashion, left wrist was infiltrated with 2% Lidocaine 0.25mL, left radial artery was then palpated and a 20g arrow catheter was then introduced into the artery. Good pulsatile blood return was noted, guidewire advanced without difficulty, and the catheter was then slide into place without difficulty. Catheter was then transduced and yielded good arterial waveform. Catheter was secured with tape, tegaderm, and an armboard. Pt tolerated the procedure well.
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
[2018-03-17] MEDS: Tamsulosin 0.4 MG Cap.ER PO SCH (10:38)
--- NOTE | 2018-03-17 12:08 | OR ---
SURGEON: MICHELLE PEARSON MD DATE OF PROCEDURE: 03/17/2018 PREOPERATIVE DIAGNOSIS: Urosepsis. POSTOPERATIVE DIAGNOSIS: Urosepsis. PROCEDURE PERFORMED: Right internal jugular central line placement. ANESTHESIA: Local. ESTIMATED BLOOD LOSS: 10 mL. FINDINGS: Ultrasound-guided placement of a triple-lumen catheter in the right internal jugular vein. COMPLICATIONS: None. INDICATIONS: The patient is a 68-year-old male who presents with urosepsis. He is hypotensive and in need of central line access. His platelet count is 341. His hemoglobin is 8.7. The patient, I, and his discussed the procedure as well as expected perioperative course. He has had multiple central lines placed in the past. We discussed the risks of bleeding, infection, or damage to surrounding structures. His verbalized understanding and wishes to proceed. PROCEDURE IN DETAIL: The patient was met in the ICU in his ICU bed. The ICU bed was placed into a Trendelenburg position. An ultrasound was used to identify the right internal jugular vein along the right lateral neck. The neck was then prepped and draped in the usual standard fashion. Using a sterile ultrasound, I then reidentified the vascular anatomy of the right side of the neck. A guide needle was then placed under direct visualization into the left internal jugular vein. A good return of venous blood was noted. A guidewire was then placed down into the vein and passed without difficulty. The guidewire was removed. An 11 blade was used to make a margarita in the skin along the area of the guidewire. A vascular dilator was then placed over the guidewire and used to dilate the catheter tract. This was then removed, and a triple-lumen catheter was then placed over the guidewire. The guidewire was removed. Good venous blood return was noted from all three port sites. The ports were then flushed with normal saline. The catheter was placed at 17 cm at the skin. It was secured in place with two 3-0 silk sutures placed on either side of the catheter. Sterile dressings were applied. The patient tolerated the procedure well. A postprocedural chest x-ray has been taken. On personal review, it appears normal. Awaiting final report. JAEL / TERRELL /[id number] MARIA L
[2018-03-17] MEDS: Vancomycin 25 MG/ML Compounding Kit PO SCH ×2 (12:17→18:30)
[2018-03-17] MEDS ORDERED: Albuterol/Ipratropium 3.0-0.5 MG/3 ML Neb Soln NEB PRN (14:17)
[2018-03-17] MEDS ORDERED: Metoclopramide 10 MG/2 ML SDV IVPUSH PRN (14:18)
[2018-03-17] MEDS ORDERED: Ondansetron 4 MG/2 ML SDV IVPUSH PRN (14:19)
[2018-03-17] MEDS ORDERED: Sodium Chloride 0.9% 1,000 ML IV SCH (15:15)
[2018-03-17] MEDS ORDERED: Acetaminophen 325 MG Tab PO SCH (18:00)
[2018-03-17] MEDS ORDERED: Gabapentin 300 MG Cap PO SCH ×2 (20:00→21:00)
[2018-03-17] MEDS: Meropenem 1 GM in Sodium Chloride 0.9% 100 ML IV SCH (21:06)
[2018-03-17] MEDS: Fluticasone/Salmeterol 250-50 MCG Inhalation Powder 14/Diskus INH SCH (22:45)
[2018-03-18] MEDS: Gabapentin 300 MG Cap PO SCH ×4 (00:09→17:01)
[2018-03-18] MEDS: Sodium Chloride 0.9% 1,000 ML IV SCH ×3 (00:10→16:23)
[2018-03-18] MEDS: Acetaminophen 325 MG Tab PO PRN ×2 (00:24→08:19)
[2018-03-18] MEDS: Meropenem 1 GM in Sodium Chloride 0.9% 100 ML IV SCH ×2 (08:18→20:53)
[2018-03-18] MEDS: Aspirin 81 MG Tab.EC PO SCH (08:19)
[2018-03-18] MEDS: atorvaSTATin 20 MG Tab PO SCH (08:19)
[2018-03-18] MEDS: Folic Acid 1 MG Tab PO SCH (08:19)
[2018-03-18] MEDS: Tamsulosin 0.4 MG Cap.ER PO SCH (08:19)
[2018-03-18] MEDS: Finasteride 5 MG Tab PO SCH (08:19)
[2018-03-18] MEDS: Fluticasone/Salmeterol 250-50 MCG Inhalation Powder 14/Diskus INH SCH (08:48)
[2018-03-18] MEDS: Pantoprazole 40 MG Vial IVPUSH SCH (11:29)
[2018-03-18] MEDS ORDERED: Magnesium Sulfate/Water 4 GM in Premix Bag 1 BAG IV ONE (12:48)
--- NOTE | 2018-03-18 13:56 | PCM.PN ---
- General Info Date of Service: 03/18/18 Admission Dx/Problem (Free Text): Patient feeling better today , blood pressure is stable , still has watery diarrhea .HB 7.4 today . - Review of Systems General: Reports: No Symptoms HEENT: Reports: No Symptoms Pulmonary: Reports: No Symptoms Cardiovascular: Reports: No Symptoms Gastrointestinal: Reports: Diarrhea Skin: Reports: No Symptoms Neurological: Reports: No Symptoms Psychiatric: Reports: No Symptoms - Patient Data Vitals - Most Recent: Last Vital Signs Temp 99.3 F 03/18/18 12:00 Pulse 87 03/17/18 07:00 Resp 18 03/18/18 13:00 BP 125/54 L 03/18/18 13:00 Pulse Ox 100 03/18/18 13:00 Weight - Most Recent: 167 lb 15.876 oz I&O - Last 24 Hours: Intake & Output 03/17/18 03/18/18 03/18/18 22:59 06:59 14:59 Intake Total 1811 2593 1286 Output Total 625 1900 Balance 1594 365 8640 Lab Results Last 24 Hours: Laboratory Results - last 24 hr 03/17/18 03/17/18 03/17/18 Range/Units 14:25 14:25 15:15 WBC 21.83 H (4.0-11.0) K/uL RBC 2.81 L (4.50-5.90) M/uL Hgb 8.1 L (13.0-17.0) g/dL Hct 24.4 L (38.0-50.0) % MCV 86.8 (80.0-98.0) fL MCH 28.8 (27.0-32.0) pg MCHC 33.2 (31.0-37.0) g/dL RDW Std Deviation 48.7 (28.0-62.0) fl RDW Coeff of Jeannie 15 (11.0-15.0) % Plt Count 293 (150-400) K/uL MPV 9.00 (7.40-12.00) fL Neut % (Auto) (48.0-80.0) % Lymph % (Auto) (16.0-40.0) % Hardeman % (Auto) (0.0-15.0) % Eos % (Auto) (0.0-7.0) % Baso % (Auto) (0.0-1.5) % Neut # (Auto) (1.4-5.7) K/uL Lymph # (Auto) (0.6-2.4) K/uL Hardeman # (Auto) (0.0-0.8) K/uL Eos # (Auto) (0.0-0.7) K/uL Baso # (Auto) (0.0-0.1) K/uL Nucleated RBC % 0.0 /100WBC Nucleated RBCs # 0 K/uL Absolute Retic (20-80) K/uL Percent Retic (0.5-1.5) % Immature Retic Fraction % INR ABG pH 7.344 L (7.35-7.45) ABG pCO2 26 L (35-45) mmHG ABG pO2 74 L (75-100) mmHG ABG HCO3 14 L (22-26) mEq/L ABG Total CO2 13.8 ABG Base Excess -10.1 L (-2.0-2.0) Lactate 1.0 (0.20-2.00) mmol/L Sodium (136-148) mmol/L Potassium (3.5-5.1) mmol/L Chloride (98-107) mmol/L Carbon Dioxide (21.0-32.0) mmol/L BUN (7.0-18.0) mg/dL Creatinine (0.8-1.3) mg/dL Est Cr Clr Drug Dosing mL/min Estimated GFR (MDRD) ml/min Glucose (74-106) mg/dL POC Glucose (60-110) mg/dL Calcium (8.5-10.1) mg/dL Magnesium (1.5-2.0) mg/dL Iron (50-175) ug/dL TIBC (250-450) ug/dL % Saturation (20-55) % Ferritin (26-388) ng/mL Total Bilirubin (0.2-1.0) mg/dL AST (15-37) IU/L ALT (14-63) IU/L Alkaline Phosphatase (46-116) U/L Total Protein (6.4-8.2) g/dL Albumin (3.4-5.0) g/dL Globulin (2.0-3.5) g/dL Albumin/Globulin Ratio (1.3-2.8) Vitamin B12 (193-986) pg/mL Folate (8.60-58.90) ng/mL Blood Type Antibody Screen Crossmatch 03/18/18 03/18/18 03/18/18 Range/Units 02:13 05:49 05:49 WBC 14.13 H (4.0-11.0) K/uL RBC 2.57 L (4.50-5.90) M/uL Hgb 7.3 L (13.0-17.0) g/dL Hct 22.4 L (38.0-50.0) % MCV 87.2 (80.0-98.0) fL MCH 28.4 (27.0-32.0) pg MCHC 32.6 (31.0-37.0) g/dL RDW Std Deviation 48.4 (28.0-62.0) fl RDW Coeff of Jeannie 15 (11.0-15.0) % Plt Count 268 (150-400) K/uL MPV 8.90 (7.40-12.00) fL Neut % (Auto) 82.4 H (48.0-80.0) % Lymph % (Auto) 6.8 L (16.0-40.0) % Hardeman % (Auto) 9.3 (0.0-15.0) % Eos % (Auto) 1.3 (0.0-7.0) % Baso % (Auto) 0.2 (0.0-1.5) % Neut # (Auto) 11.6 H (1.4-5.7) K/uL Lymph # (Auto) 1.0 (0.6-2.4) K/uL Hardeman # (Auto) 1.3 H (0.0-0.8) K/uL Eos # (Auto) 0.2 (0.0-0.7) K/uL Baso # (Auto) 0.0 (0.0-0.1) K/uL Nucleated RBC % 0.0 /100WBC Nucleated RBCs # 0 K/uL Absolute Retic (20-80) K/uL Percent Retic (0.5-1.5) % Immature Retic Fraction % INR ABG pH (7.35-7.45) ABG pCO2 (35-45) mmHG ABG pO2 (75-100) mmHG ABG HCO3 (22-26) mEq/L ABG Total CO2 ABG Base Excess (-2.0-2.0) Lactate (0.20-2.00) mmol/L Sodium 136 (136-148) mmol/L Potassium 3.7 (3.5-5.1) mmol/L Chloride 107 (98-107) mmol/L Carbon Dioxide 17.6 L (21.0-32.0) mmol/L BUN 23 H (7.0-18.0) mg/dL Creatinine 2.1 H (0.8-1.3) mg/dL Est Cr Clr Drug Dosing 34.86 mL/min Estimated GFR (MDRD) 31.4 ml/min Glucose 95 (74-106) mg/dL POC Glucose 238 H (60-110) mg/dL Calcium 7.5 L (8.5-10.1) mg/dL Magnesium (1.5-2.0) mg/dL Iron (50-175) ug/dL TIBC (250-450) ug/dL % Saturation (20-55) % Ferritin (26-388) ng/mL Total Bilirubin 0.2 (0.2-1.0) mg/dL AST 13 L (15-37) IU/L ALT 6 L (14-63) IU/L Alkaline Phosphatase 124 H (46-116) U/L Total Protein 5.2 L (6.4-8.2) g/dL Albumin 1.6 L (3.4-5.0) g/dL Globulin 3.6 H (2.0-3.5) g/dL Albumin/Globulin Ratio 0.4 L (1.3-2.8) Vitamin B12 (193-986) pg/mL Folate (8.60-58.90) ng/mL Blood Type Antibody Screen Crossmatch 03/18/18 03/18/18 03/18/18 Range/Units 05:49 11:28 11:28 WBC (4.0-11.0) K/uL RBC (4.50-5.90) M/uL Hgb (13.0-17.0) g/dL Hct (38.0-50.0) % MCV (80.0-98.0) fL MCH (27.0-32.0) pg MCHC (31.0-37.0) g/dL RDW Std Deviation (28.0-62.0) fl RDW Coeff of Jeannie (11.0-15.0) % Plt Count (150-400) K/uL MPV (7.40-12.00) fL Neut % (Auto) (48.0-80.0) % Lymph % (Auto) (16.0-40.0) % Hardeman % (Auto) (0.0-15.0) % Eos % (Auto) (0.0-7.0) % Baso % (Auto) (0.0-1.5) % Neut # (Auto) (1.4-5.7) K/uL Lymph # (Auto) (0.6-2.4) K/uL Hardeman # (Auto) (0.0-0.8) K/uL Eos # (Auto) (0.0-0.7) K/uL Baso # (Auto) (0.0-0.1) K/uL Nucleated RBC % /100WBC Nucleated RBCs # K/uL Absolute Retic (20-80) K/uL Percent Retic (0.5-1.5) % Immature Retic Fraction % INR ABG pH (7.35-7.45) ABG pCO2 (35-45) mmHG ABG pO2 (75-100) mmHG ABG HCO3 (22-26) mEq/L ABG Total CO2 ABG Base Excess (-2.0-2.0) Lactate (0.20-2.00) mmol/L Sodium (136-148) mmol/L Potassium (3.5-5.1) mmol/L Chloride (98-107) mmol/L Carbon Dioxide (21.0-32.0) mmol/L BUN (7.0-18.0) mg/dL Creatinine (0.8-1.3) mg/dL Est Cr Clr Drug Dosing mL/min Estimated GFR (MDRD) ml/min Glucose (74-106) mg/dL POC Glucose (60-110) mg/dL Calcium (8.5-10.1) mg/dL Magnesium 1.2 L (1.5-2.0) mg/dL Iron 7 L (50-175) ug/dL TIBC 63 L (250-450) ug/dL % Saturation 11.11 L (20-55) % Ferritin 403 H (26-388) ng/mL Total Bilirubin (0.2-1.0) mg/dL AST (15-37) IU/L ALT (14-63) IU/L Alkaline Phosphatase (46-116) U/L Total Protein (6.4-8.2) g/dL Albumin (3.4-5.0) g/dL Globulin (2.0-3.5) g/dL Albumin/Globulin Ratio (1.3-2.8) Vitamin B12 (193-986) pg/mL Folate (8.60-58.90) ng/mL Blood Type A POSITIVE Antibody Screen NEGATIVE Crossmatch See Detail 03/18/18 03/18/18 03/18/18 Range/Units 11:28 11:28 11:28 WBC (4.0-11.0) K/uL RBC (4.50-5.90) M/uL Hgb (13.0-17.0) g/dL Hct (38.0-50.0) % MCV (80.0-98.0) fL MCH (27.0-32.0) pg MCHC (31.0-37.0) g/dL RDW Std Deviation (28.0-62.0) fl RDW Coeff of Jeannie (11.0-15.0) % Plt Count (150-400) K/uL MPV (7.40-12.00) fL Neut % (Auto) (48.0-80.0) % Lymph % (Auto) (16.0-40.0) % Hardeman % (Auto) (0.0-15.0) % Eos % (Auto) (0.0-7.0) % Baso % (Auto) (0.0-1.5) % Neut # (Auto) (1.4-5.7) K/uL Lymph # (Auto) (0.6-2.4) K/uL Hardeman # (Auto) (0.0-0.8) K/uL Eos # (Auto) (0.0-0.7) K/uL Baso # (Auto) (0.0-0.1) K/uL Nucleated RBC % /100WBC Nucleated RBCs # K/uL Absolute Retic (20-80) K/uL Percent Retic (0.5-1.5) % Immature Retic Fraction % INR 1.18 ABG pH (7.35-7.45) ABG pCO2 (35-45) mmHG ABG pO2 (75-100) mmHG ABG HCO3 (22-26) mEq/L ABG Total CO2 ABG Base Excess (-2.0-2.0) Lactate (0.20-2.00) mmol/L Sodium (136-148) mmol/L Potassium (3.5-5.1) mmol/L Chloride (98-107) mmol/L Carbon Dioxide (21.0-32.0) mmol/L BUN (7.0-18.0) mg/dL Creatinine (0.8-1.3) mg/dL Est Cr Clr Drug Dosing mL/min Estimated GFR (MDRD) ml/min Glucose (74-106) mg/dL POC Glucose (60-110) mg/dL Calcium (8.5-10.1) mg/dL Magnesium (1.5-2.0) mg/dL Iron (50-175) ug/dL TIBC (250-450) ug/dL % Saturation (20-55) % Ferritin (26-388) ng/mL Total Bilirubin (0.2-1.0) mg/dL AST (15-37) IU/L ALT (14-63) IU/L Alkaline Phosphatase (46-116) U/L Total Protein (6.4-8.2) g/dL Albumin (3.4-5.0) g/dL Globulin (2.0-3.5) g/dL Albumin/Globulin Ratio (1.3-2.8) Vitamin B12 483 (193-986) pg/mL Folate 23.50 (8.60-58.90) ng/mL Blood Type Antibody Screen Crossmatch 03/18/18 Range/Units 11:28 WBC (4.0-11.0) K/uL RBC 2.44 L (4.50-5.90) M/uL Hgb (13.0-17.0) g/dL Hct (38.0-50.0) % MCV (80.0-98.0) fL MCH (27.0-32.0) pg MCHC (31.0-37.0) g/dL RDW Std Deviation (28.0-62.0) fl RDW Coeff of Jeannie (11.0-15.0) % Plt Count (150-400) K/uL MPV (7.40-12.00) fL Neut % (Auto) (48.0-80.0) % Lymph % (Auto) (16.0-40.0) % Hardeman % (Auto) (0.0-15.0) % Eos % (Auto) (0.0-7.0) % Baso % (Auto) (0.0-1.5) % Neut # (Auto) (1.4-5.7) K/uL Lymph # (Auto) (0.6-2.4) K/uL Hardeman # (Auto) (0.0-0.8) K/uL Eos # (Auto) (0.0-0.7) K/uL Baso # (Auto) (0.0-0.1) K/uL Nucleated RBC % /100WBC Nucleated RBCs # K/uL Absolute Retic 29.80 (20-80) K/uL Percent Retic 1.2 (0.5-1.5) % Immature Retic Fraction 10 % INR ABG pH (7.35-7.45) ABG pCO2 (35-45) mmHG ABG pO2 (75-100) mmHG ABG HCO3 (22-26) mEq/L ABG Total CO2 ABG Base Excess (-2.0-2.0) Lactate (0.20-2.00) mmol/L Sodium (136-148) mmol/L Potassium (3.5-5.1) mmol/L Chloride (98-107) mmol/L Carbon Dioxide (21.0-32.0) mmol/L BUN (7.0-18.0) mg/dL Creatinine (0.8-1.3) mg/dL Est Cr Clr Drug Dosing mL/min Estimated GFR (MDRD) ml/min Glucose (74-106) mg/dL POC Glucose (60-110) mg/dL Calcium (8.5-10.1) mg/dL Magnesium (1.5-2.0) mg/dL Iron (50-175) ug/dL TIBC (250-450) ug/dL % Saturation (20-55) % Ferritin (26-388) ng/mL Total Bilirubin (0.2-1.0) mg/dL AST (15-37) IU/L ALT (14-63) IU/L Alkaline Phosphatase (46-116) U/L Total Protein (6.4-8.2) g/dL Albumin (3.4-5.0) g/dL Globulin (2.0-3.5) g/dL Albumin/Globulin Ratio (1.3-2.8) Vitamin B12 (193-986) pg/mL Folate (8.60-58.90) ng/mL Blood Type Antibody Screen Crossmatch Lebron Results Last 24 Hours: Microbiology 03/17/18 10:20 Aerobic Blood Culture - Preliminary Blood - Venous - Lab Draw NO GROWTH AFTER 1 DAY Anaerobic Blood Culture - Preliminary NO GROWTH AFTER 1 DAY 03/17/18 10:06 Aerobic Blood Culture - Preliminary Blood - Venous NO GROWTH AFTER 1 DAY Anaerobic Blood Culture - Preliminary NO GROWTH AFTER 1 DAY 03/17/18 21:30 Campylobacter Antigen Assay - Final Stool / Feces NEGATIVE CAMPYLOBACTER AG 03/17/18 21:30 Clostridium difficile Toxin A & B - Final Stool / Feces Negative for C.Diff Toxin/AG Med Orders - Current: Current Medications Acetaminophen (Tylenol) 650 mg PO Q4H PRN PRN Reason: Fever Last Admin: 03/18/18 08:19 Dose: 650 mg Albuterol/Ipratropium (Duoneb 3.0-0.5 Mg/3 Ml) 3 ml NEB Q4HRRT PRN PRN Reason: sob , wheezing Aspirin (Halfprin) 81 mg PO DAILY [facility] Last Admin: 03/18/18 08:19 Dose: 81 mg Atorvastatin Calcium (Lipitor) 20 mg PO DAILY [facility] Last Admin: 03/18/18 08:19 Dose: 20 mg Finasteride (Proscar) 5 mg PO DAILY [facility] Last Admin: 03/18/18 08:19 Dose: 5 mg Folic Acid (Folic Acid) 1 mg PO DAILY [facility] Last Admin: 03/18/18 08:19 Dose: 1 mg Gabapentin (Neurontin) 600 mg PO QID [facility] Last Admin: 03/18/18 11:30 Dose: 600 mg Heparin Sodium (Porcine) (Heparin Sodium) 5,000 units SUBCUT Q12HR [facility] Sodium Chloride (Normal Saline) 500 mls @ 999 mls/hr IV .BOLUS [facility] Last Admin: 03/17/18 06:14 Dose: 999 mls/hr Sodium Chloride (Normal Saline) 1,000 mls @ 999 mls/hr IV ASDIRECTED [facility] Last Admin: 03/17/18 15:08 Dose: 999 mls/hr Norepinephrine Bitartrate (Norepinephr-0.9% Nacl 4 Mg/250) 4 mg in 250 mls @ 7.5 mls/hr IV TITRATE JOSE; Protocol Last Titration: 03/18/18 01:00 Dose: 0 mcg/min, 0 mls/hr Meropenem 1 gm/ Sodium (Chloride) 100 mls @ 200 mls/hr IV BID JOSE Last Admin: 03/18/18 08:18 Dose: 200 mls/hr Vancomycin HCl 1 gm/ Sodium (Chloride) 250 mls @ 250 mls/hr IV Q24H JOSE Last Admin: 03/18/18 10:23 Dose: 250 mls/hr Sodium Chloride (Normal Saline) 1,000 mls @ 999 mls/hr IV ASDIRECTED JOSE Sodium Chloride (Normal Saline) 1,000 mls @ 125 mls/hr IV ASDIRECTED [facility] Last Admin: 03/18/18 08:17 Dose: 125 mls/hr Magnesium Sulfate 4 gm/ Premix 100 mls @ 50 mls/hr IV ONETIME ONE Stop: 03/18/18 14:47 Last Admin: 03/18/18 13:10 Dose: 50 mls/hr Metoclopramide HCl (Reglan) 10 mg IVPUSH Q6H PRN PRN Reason: nausea and vomiting Ondansetron HCl (Zofran) 4 mg IVPUSH Q6H PRN PRN Reason: Nausea/Vomiting Pantoprazole Sodium (Protonix Iv) 40 mg IVPUSH DAILY [facility] Last Admin: 03/18/18 11:29 Dose: 40 mg Fluticasone/Salmeterol (Advair Diskus 250-50) 1 puff INH DAILY [facility] Last Admin: 03/18/18 08:48 Dose: 1 disk Tamsulosin HCl (Flomax) 0.4 mg PO DAILY [facility] Last Admin: 03/18/18 08:19 Dose: 0.4 mg Vancomycin HCl (Pharmacy To Dose - Vancomycin) 1 dose .XX ASDIRECTED [facility] Discontinued Medications Acetaminophen (Tylenol) 650 mg PO Q4H PRN PRN Reason: Pain (Mild 1-3)/fever Last Admin: 03/17/18 13:43 Dose: 650 mg Acetaminophen (Tylenol) 650 mg PO Q4H JOSE Last Admin: 03/17/18 17:58 Dose: 650 mg Gabapentin (Neurontin) 300 mg PO BID JOSE Gabapentin (Neurontin) 300 mg PO QID JOSE Last Admin: 03/17/18 20:10 Dose: 300 mg Meropenem 1 gm/ Sodium (Chloride) 100 mls @ 200 mls/hr IV ONETIME ONE Stop: 03/17/18 06:45 Last Admin: 03/17/18 06:39 Dose: 200 mls/hr Sodium Chloride (Normal Saline) 1,000 mls @ 999 mls/hr IV .Bolus ONE Stop: 03/17/18 07:30 Last Admin: 03/17/18 06:33 Dose: 999 mls/hr Albumin Human (Flexbumin 25%) 12.5 gm in 50 mls @ 100 mls/hr IV ONETIME ONE Stop: 03/17/18 08:41 Last Admin: 03/17/18 08:45 Dose: 100 mls/hr Albumin Human (Flexbumin 25%) 12.5 gm in 50 mls @ 100 mls/hr IV ONETIME ONE Stop: 03/17/18 08:43 Last Admin: 03/17/18 08:57 Dose: 100 mls/hr Albumin Human (Flexbumin 25%) 12.5 gm in 50 mls @ 100 mls/hr IV ONETIME ONE Stop: 03/17/18 08:43 Last Admin: 03/17/18 09:19 Dose: 100 mls/hr Albumin Human (Flexbumin 25%) 12.5 gm in 50 mls @ 100 mls/hr IV ONETIME ONE Stop: 03/17/18 08:44 Last Admin: 03/17/18 09:44 Dose: Not Given Tobramycin 160 mg/ Sodium (Chloride) 104 mls @ 104 mls/hr IV ONETIME STA Stop: 03/17/18 10:31 Last Admin: 03/17/18 10:36 Dose: 104 mls/hr Sodium Chloride (Normal Saline) 1,000 mls @ 999 mls/hr IV .Bolus ONE Stop: 03/17/18 16:07 Last Admin: 03/17/18 15:18 Dose: Not Given Ibuprofen (Motrin) 600 mg PO ONETIME ONE Stop: 03/17/18 06:21 Last Admin: 03/17/18 06:27 Dose: 600 mg Lidocaine (Xylocaine-Mpf 2%) Confirm Administered Dose 5 ml .ROUTE .STK-MED ONE Stop: 03/17/18 09:42 Last Admin: 03/17/18 09:45 Dose: 5 ml Non-Formulary Medication (Rifampin) 300 mg PO DAILY [facility] Last Admin: 03/17/18 10:38 Dose: 300 mg Tiotropium [place] (Spiriva Handihaler) 0 mcg INH DAILY [facility] Last Admin: 03/17/18 10:39 Dose: 1 inhalation Vancomycin HCl (First-Vancomycin 25 Compounding Kit) 250 mg PO Q6H [facility] Last Admin: 03/17/18 18:30 Dose: Not Given - Exam General: Alert, Oriented HEENT: Pupils Equal, Pupils Reactive Neck: Supple, No JVD Lungs: Clear to Auscultation, Normal Respiratory Effort Cardiovascular: Regular Rate, Regular Rhythm, No Murmurs GI/Abdominal Exam: Normal Bowel Sounds, Soft, Non-Tender, No Distention, No Abnormal Bruit Back Exam: Normal Inspection Extremities: Normal Inspection Skin: Warm, Dry Neurological: No New Focal Deficit Psy/Mental Status: Alert, Normal Affect - Problem List & Annotations (1) Septic shock SNOMED Code(s): 83652664 Code(s): A41.9 - SEPSIS, UNSPECIFIED ORGANISM; R65.21 - SEVERE SEPSIS WITH SEPTIC SHOCK Status: Acute Current Visit: Yes (2) CKD (chronic kidney disease) stage 4, GFR 15-29 ml/min SNOMED Code(s): 942664216 Code(s): N18.4 - CHRONIC KIDNEY DISEASE, STAGE 4 (SEVERE) Status: Acute Current Visit: Yes (3) UTI (urinary tract infection) SNOMED Code(s): 56554961 Code(s): N39.0 - URINARY TRACT INFECTION, SITE NOT SPECIFIED Status: Acute Priority: High Current Visit: Yes (4) BPH (benign prostatic hyperplasia) SNOMED Code(s): 514425533 Code(s): N40.0 - BENIGN PROSTATIC HYPERPLASIA WITHOUT LOWER URINRY TRACT SYMP Status: Acute Current Visit: Yes (5) Multiple fractures of rib involving four or more ribs SNOMED Code(s): 4079254 Code(s): S22.49XA - MULTIPLE FRACTURES OF RIBS, UNSP SIDE, INIT FOR CLOS FX Status: Acute Current Visit: Yes (6) Anemia SNOMED Code(s): 325414859 Code(s): D64.9 - ANEMIA, UNSPECIFIED Status: Acute Current Visit: Yes (7) Hypomagnesemia SNOMED Code(s): 820405741 Code(s): E83.42 - HYPOMAGNESEMIA Status: Acute Current Visit: Yes - Problem List Review Problem List Initiated/Reviewed/Updated: Yes - My Orders Last 24 Hours: My Active Orders 03/17/18 14:17 Albuterol/Ipratropium [DuoNeb 3.0-0.5 MG/3 ML] 3 ml NEB Q4HRRT PRN 03/17/18 14:18 RT Aerosol Therapy [RC] ASDIRECTED Metoclopramide [Reglan] 10 mg IVPUSH Q6H PRN 03/17/18 14:19 Ondansetron [Zofran] 4 mg IVPUSH Q6H PRN 03/17/18 17:05 CULTURE URINE [RM] Routine 03/17/18 19:16 Acetaminophen [Tylenol] 650 mg PO Q4H PRN 03/17/18 21:30 CULTURE STOOL + CAMPY+SHIGATOX [RM] Routine 03/18/18 00:00 Gabapentin [Neurontin] 600 mg PO QID 03/18/18 09:00 Aspirin [Halfprin] 81 mg PO DAILY Finasteride [Proscar] 5 mg PO DAILY Fluticasone/Salmeterol [Advair Diskus 250-50] 1 puff INH DAILY Folic Acid 1 mg PO DAILY atorvaSTATin [Lipitor] 20 mg PO DAILY 03/18/18 11:03 Transfuse Red Blood Cells [COMM] Routine 03/18/18 11:04 OCCULT BLOOD SCREEN [OP] Routine 03/18/18 11:15 Pantoprazole [ProTONIX IV] 40 mg IVPUSH DAILY 03/18/18 11:28 RED BLOOD CELLS LP [BBK] Routine TYPE AND SCREEN [BBK] Routine 03/18/18 12:48 Magnesium Sulfate/Water [Magnesium Sulfate 4 GM in Water 100 ML] 4 gm Premix Bag 1 bag IV ONETIME 03/19/18 05:11 CBC WITH AUTO DIFF [HEME] AM COMPREHENSIVE METABOLIC PN,CMP [CHEM] AM 03/20/18 05:11 CBC WITH AUTO DIFF [HEME] AM COMPREHENSIVE METABOLIC PN,CMP [CHEM] AM 03/21/18 05:11 CBC WITH AUTO DIFF [HEME] AM COMPREHENSIVE METABOLIC PN,CMP [CHEM] AM 03/22/18 05:11 CBC WITH AUTO DIFF [HEME] AM COMPREHENSIVE METABOLIC PN,CMP [CHEM] AM - Assessment Assessment:: Septic shock - resolved , patient blood pressure is stable Sepsis secondary to UTI - continue Meropenem 1 gram iv q 12 h, Vancomycin as per pharmacy , will d/c Vancomycin afre 3 days if no MRSA growth on blood culture. Diarrhea- brat diet Prior C diff infection - patient nbeeds to complete his treatment with Vancomycin po tapering dose he was started during his last episode of C diff. Anemia- tranfuse patient 1 unit PRBC , f/up Hb Electroytes disturbances - supplement electrolytes HX of ribs OM - patient will be continued on Rifampin due to concerns that he might develop resistance to Rifampin if the medication is being discontinued BPH- continue flomax and finasteride.
[2018-03-18] MEDS: RIFAMPIN 300 MG PO SCH (15:14)
[2018-03-18] MEDS ORDERED: Vancomycin 25 MG/ML Compounding Kit PO SCH (15:15)
[2018-03-18] MEDS: Vancomycin 25 MG/ML Compounding Kit PO SCH (17:01)
[2018-03-18] MEDS: Heparin Sodium 5,000 Units/ML Vial SUBCUT SCH (21:45)
[2018-03-19] MEDS: Vancomycin 25 MG/ML Compounding Kit PO SCH ×4 (00:12→17:00)
[2018-03-19] MEDS: Gabapentin 300 MG Cap PO SCH ×4 (00:13→17:00)
[2018-03-19] MEDS: Sodium Chloride 0.9% 1,000 ML IV SCH ×2 (00:54→09:32)
[2018-03-19] MEDS: Tamsulosin 0.4 MG Cap.ER PO SCH (08:18)
[2018-03-19] MEDS: Finasteride 5 MG Tab PO SCH (08:18)
[2018-03-19] MEDS: Folic Acid 1 MG Tab PO SCH (08:18)
[2018-03-19] MEDS: Aspirin 81 MG Tab.EC PO SCH (08:18)
[2018-03-19] MEDS: Ferrous Sulfate 325 MG Tab PO SCH ×3 (08:18→17:00)
[2018-03-19] MEDS: atorvaSTATin 20 MG Tab PO SCH (08:18)
[2018-03-19] MEDS: Meropenem 1 GM in Sodium Chloride 0.9% 100 ML IV SCH ×2 (08:19→20:27)
[2018-03-19] MEDS: Heparin Sodium 5,000 Units/ML Vial SUBCUT SCH ×2 (08:19→20:26)
[2018-03-19] MEDS: RIFAMPIN 300 MG PO SCH (08:19)
[2018-03-19] MEDS: Pantoprazole 40 MG Vial IVPUSH SCH (08:19)
[2018-03-19] MEDS: Fluticasone/Salmeterol 250-50 MCG Inhalation Powder 14/Diskus INH SCH (09:02)
[2018-03-19] MEDS ORDERED: Magnesium Sulfate/Water 2 GM in Premix Bag 1 BAG IV ONE (09:57)
[2018-03-19] MEDS ORDERED: Loperamide 2 MG Cap PO PRN (09:59)
--- NOTE | 2018-03-19 10:21 | CR ---
EXAM DATE: 03/17/18 PATIENT'S AGE: 68 Patient: COURTNEY PAEZ Facility: [place], [place] Site . Site : 1950 Study: XRay Chest [id number]/21/2018 7:25:51 AM Ordering Physician: Vini Tracey Final Report: Hypotension portable chest Comparison chest x-rays 12/22/2017. FINDINGS: Plate and screw fixation of multiple right ribs. Stable cardiac mediastinal silhouette. Right hemidiaphragm mildly elevated unchanged. Strandy right basilar atelectasis or scarring. No acute airspace or interstitial process. Left basilar atelectasis. Dictated by Sariah Guardado MD @ Mar 17 2018 7:28AM (Electronic Signature) Report Signed by Proxy. MARIA L
--- NOTE | 2018-03-19 10:36 | CR ---
EXAM DATE: 03/17/18 PATIENT'S AGE: 68 Patient: COURTNEY PAEZ Facility: [place], [place] Site . Site : 1950 Study: XRay Chest [id number]/21/2018 10:58:58 AM Ordering Physician: Miah Gonzalez Final Report: HISTORY: Central line placement. TECHNIQUE: One view of the chest. COMPARISON: 03/17/2018. FINDINGS: Interval placement of a right internal jugular catheter. The catheter terminates near the junction of the right brachiocephalic and left brachiocephalic veins to form the upper most SVC. Cardiac size is stable. No consolidation. No pleural effusion on the left. On the right, there is slight blunting of the costophrenic angle laterally which could relate to either a trace pleural fluid or pleural thickening. Prior fixation of multiple right- sided ribs as before. IMPRESSION: Right internal jugular catheter tip terminates near the confluence of the brachiocephalic veins to form the upper most SVC. Dictated by Puma Knowles MD @ 03/17/2018 11:16:52 AM Dictated by: Puma Knowles MD @ 03/17/2018 11:16:57 (Electronic Signature) Report Signed by Proxy. MARIAL
--- NOTE | 2018-03-19 10:49 | PCM.PN ---
<Alex Whittaker - Last Filed: 03/19/18 10:43> - General Info Date of Service: 03/19/18 Admission Dx/Problem (Free Text): Urosepsis Subjective Update: Patient has no acute concerns. He is tolerating oral intake and voiding appropriately. Functional Status: Reports: Pain Controlled, Tolerating Diet, Ambulating, Urinating - Review of Systems General: Reports: No Symptoms HEENT: Reports: No Symptoms Pulmonary: Reports: No Symptoms Cardiovascular: Reports: No Symptoms Gastrointestinal: Reports: No Symptoms Genitourinary: Reports: No Symptoms Musculoskeletal: Reports: No Symptoms Skin: Reports: No Symptoms Neurological: Reports: No Symptoms Psychiatric: Reports: No Symptoms - Patient Data Vitals - Most Recent: Last Vital Signs Temp 98.9 F 03/19/18 08:00 Pulse 87 03/17/18 07:00 Resp 17 03/19/18 10:00 BP 134/73 03/19/18 10:00 Pulse Ox 100 03/19/18 10:00 Weight - Most Recent: 173 lb 11.588 oz I&O - Last 24 Hours: Intake & Output 03/18/18 03/19/18 03/19/18 22:59 06:59 14:59 Intake Total 2038 2777 Output Total 1450 Balance 588 2777 Lab Results Last 24 Hours: Laboratory Results - last 24 hr 03/18/18 03/18/18 03/18/18 Range/Units 11:28 11:28 11:28 WBC (4.0-11.0) K/uL RBC (4.50-5.90) M/uL Hgb (13.0-17.0) g/dL Hct (38.0-50.0) % MCV (80.0-98.0) fL MCH (27.0-32.0) pg MCHC (31.0-37.0) g/dL RDW Std Deviation (28.0-62.0) fl RDW Coeff of Jeannie (11.0-15.0) % Plt Count (150-400) K/uL MPV (7.40-12.00) fL Add Manual Diff Neutrophils % (Manual) (48.0-80.0) % Band Neutrophils % % Lymphocytes % (Manual) (16.0-40.0) % Monocytes % (Manual) (0.0-15.0) % Basophils % (Manual) (0.0-1.5) % Absolute Seg Neuts (1.4-5.7) Band Neutrophils # Lymphocytes # (Manual) (0.6-2.4) Monocytes # (Manual) (0.0-0.8) Basophils # (Manual) (0.0-0.1) Absolute Retic (20-80) K/uL Percent Retic (0.5-1.5) % Immature Retic Fraction % INR Sodium (136-148) mmol/L Potassium (3.5-5.1) mmol/L Chloride (98-107) mmol/L Carbon Dioxide (21.0-32.0) mmol/L BUN (7.0-18.0) mg/dL Creatinine (0.8-1.3) mg/dL Est Cr Clr Drug Dosing mL/min Estimated GFR (MDRD) ml/min Glucose (74-106) mg/dL Calcium (8.5-10.1) mg/dL Iron 7 L (50-175) ug/dL TIBC 63 L (250-450) ug/dL % Saturation 11.11 L (20-55) % Ferritin 403 H (26-388) ng/mL Total Bilirubin (0.2-1.0) mg/dL AST (15-37) IU/L ALT (14-63) IU/L Alkaline Phosphatase (46-116) U/L Total Protein (6.4-8.2) g/dL Albumin (3.4-5.0) g/dL Globulin (2.0-3.5) g/dL Albumin/Globulin Ratio (1.3-2.8) Vitamin B12 483 (193-986) pg/mL Folate (8.60-58.90) ng/mL Blood Type A POSITIVE Antibody Screen NEGATIVE Crossmatch See Detail 03/18/18 03/18/18 03/18/18 Range/Units 11:28 11:28 11:28 WBC (4.0-11.0) K/uL RBC 2.44 L (4.50-5.90) M/uL Hgb (13.0-17.0) g/dL Hct (38.0-50.0) % MCV (80.0-98.0) fL MCH (27.0-32.0) pg MCHC (31.0-37.0) g/dL RDW Std Deviation (28.0-62.0) fl RDW Coeff of Jeannie (11.0-15.0) % Plt Count (150-400) K/uL MPV (7.40-12.00) fL Add Manual Diff Neutrophils % (Manual) (48.0-80.0) % Band Neutrophils % % Lymphocytes % (Manual) (16.0-40.0) % Monocytes % (Manual) (0.0-15.0) % Basophils % (Manual) (0.0-1.5) % Absolute Seg Neuts (1.4-5.7) Band Neutrophils # Lymphocytes # (Manual) (0.6-2.4) Monocytes # (Manual) (0.0-0.8) Basophils # (Manual) (0.0-0.1) Absolute Retic 29.80 (20-80) K/uL Percent Retic 1.2 (0.5-1.5) % Immature Retic Fraction 10 % INR 1.18 Sodium (136-148) mmol/L Potassium (3.5-5.1) mmol/L Chloride (98-107) mmol/L Carbon Dioxide (21.0-32.0) mmol/L BUN (7.0-18.0) mg/dL Creatinine (0.8-1.3) mg/dL Est Cr Clr Drug Dosing mL/min Estimated GFR (MDRD) ml/min Glucose (74-106) mg/dL Calcium (8.5-10.1) mg/dL Iron (50-175) ug/dL TIBC (250-450) ug/dL % Saturation (20-55) % Ferritin (26-388) ng/mL Total Bilirubin (0.2-1.0) mg/dL AST (15-37) IU/L ALT (14-63) IU/L Alkaline Phosphatase (46-116) U/L Total Protein (6.4-8.2) g/dL Albumin (3.4-5.0) g/dL Globulin (2.0-3.5) g/dL Albumin/Globulin Ratio (1.3-2.8) Vitamin B12 (193-986) pg/mL Folate 23.50 (8.60-58.90) ng/mL Blood Type Antibody Screen Crossmatch 03/18/18 03/19/18 03/19/18 Range/Units 18:10 05:54 05:54 WBC 10.54 (4.0-11.0) K/uL RBC 2.77 L (4.50-5.90) M/uL Hgb 8.7 L 8.1 L (13.0-17.0) g/dL Hct 24.6 L (38.0-50.0) % MCV 88.8 (80.0-98.0) fL MCH 29.2 (27.0-32.0) pg MCHC 32.9 (31.0-37.0) g/dL RDW Std Deviation 44.3 (28.0-62.0) fl RDW Coeff of Jeannie 14 (11.0-15.0) % Plt Count 318 (150-400) K/uL MPV 9.30 (7.40-12.00) fL Add Manual Diff YES Neutrophils % (Manual) 77 (48.0-80.0) % Band Neutrophils % 3 % Lymphocytes % (Manual) 13 L (16.0-40.0) % Monocytes % (Manual) 4 (0.0-15.0) % Basophils % (Manual) 3 H (0.0-1.5) % Absolute Seg Neuts 8.1 H (1.4-5.7) Band Neutrophils # 0.3 Lymphocytes # (Manual) 1.4 (0.6-2.4) Monocytes # (Manual) 0.4 (0.0-0.8) Basophils # (Manual) 0.3 H (0.0-0.1) Absolute Retic (20-80) K/uL Percent Retic (0.5-1.5) % Immature Retic Fraction % INR Sodium 138 (136-148) mmol/L Potassium 3.4 L (3.5-5.1) mmol/L Chloride 109 H (98-107) mmol/L Carbon Dioxide 18.7 L (21.0-32.0) mmol/L BUN 24 H (7.0-18.0) mg/dL Creatinine 1.8 H (0.8-1.3) mg/dL Est Cr Clr Drug Dosing 40.67 mL/min Estimated GFR (MDRD) 37.5 ml/min Glucose 105 (74-106) mg/dL Calcium 7.4 L (8.5-10.1) mg/dL Iron (50-175) ug/dL TIBC (250-450) ug/dL % Saturation (20-55) % Ferritin (26-388) ng/mL Total Bilirubin 0.2 (0.2-1.0) mg/dL AST 17 (15-37) IU/L ALT 8 L (14-63) IU/L Alkaline Phosphatase 126 H (46-116) U/L Total Protein 5.2 L (6.4-8.2) g/dL Albumin 1.4 L (3.4-5.0) g/dL Globulin 3.8 H (2.0-3.5) g/dL Albumin/Globulin Ratio 0.4 L (1.3-2.8) Vitamin B12 (193-986) pg/mL Folate (8.60-58.90) ng/mL Blood Type Antibody Screen Crossmatch [place]bron Results Last 24 Hours: Microbiology 03/17/18 10:20 Aerobic Blood Culture - Preliminary Blood - Venous - Lab Draw NO GROWTH AFTER 2 DAYS Anaerobic Blood Culture - Preliminary NO GROWTH AFTER 2 DAYS 03/17/18 10:06 Aerobic Blood Culture - Preliminary Blood - Venous NO GROWTH AFTER 2 DAYS Anaerobic Blood Culture - Preliminary NO GROWTH AFTER 2 DAYS 03/17/18 21:30 Stool Culture - Final Stool / Feces NO SALMONELLA, SHIGELLA,OR E.COLI O157 ISOLATED Campylobacter Antigen Assay - Final NEGATIVE CAMPYLOBACTER AG - Final NEGATIVE FOR SHIGA TOXIN 1 - Final NEGATIVE FOR SHIGA TOXIN 2 03/17/18 17:05 Urine Culture - Preliminary Urine, Clean Catch 03/18/18 20:00 Stool Occult Blood (LEBRON) - Final Stool / Feces NEGATIVE OCCULT BLOOD Med Orders - Current: Current Medications Acetaminophen (Tylenol) 650 mg PO Q4H PRN PRN Reason: Fever Last Admin: 03/18/18 08:19 Dose: 650 mg Albuterol/Ipratropium (Duoneb 3.0-0.5 Mg/3 Ml) 3 ml NEB Q4HRRT PRN PRN Reason: sob , wheezing Aspirin (Halfprin) 81 mg PO DAILY [facility] Last Admin: 03/19/18 08:18 Dose: 81 mg Atorvastatin Calcium (Lipitor) 20 mg PO DAILY JOSE Last Admin: 03/19/18 08:18 Dose: 20 mg Ferrous Sulfate (Ferrous Sulfate) 325 mg PO TIDMEALS [facility] Last Admin: 03/19/18 08:18 Dose: 325 mg Finasteride (Proscar) 5 mg PO DAILY [facility] Last Admin: 03/19/18 08:18 Dose: 5 mg Folic Acid (Folic Acid) 1 mg PO DAILY [facility] Last Admin: 03/19/18 08:18 Dose: 1 mg Gabapentin (Neurontin) 600 mg PO QID [facility] Last Admin: 03/19/18 05:39 Dose: 600 mg Heparin Sodium (Porcine) (Heparin Sodium) 5,000 units SUBCUT Q12HR [facility] Last Admin: 03/19/18 08:19 Dose: 5,000 units Sodium Chloride (Normal Saline) 500 mls @ 999 mls/hr IV .BOLUS [facility] Last Admin: 03/17/18 06:14 Dose: 999 mls/hr Sodium Chloride (Normal Saline) 1,000 mls @ 999 mls/hr IV ASDIRECTED [facility] Last Admin: 03/17/18 15:08 Dose: 999 mls/hr Norepinephrine Bitartrate (Norepinephr-0.9% Nacl 4 Mg/250) 4 mg in 250 mls @ 7.5 mls/hr IV TITRATE [facility]; Protocol Last Titration: 03/18/18 01:00 Dose: 0 mcg/min, 0 mls/hr Meropenem 1 gm/ Sodium (Chloride) 100 mls @ 200 mls/hr IV BID [facility] Last Admin: 03/19/18 08:19 Dose: 200 mls/hr Vancomycin HCl 1 gm/ Sodium (Chloride) 250 mls @ 250 mls/hr IV Q24H [facility] Last Admin: 03/19/18 10:07 Dose: 250 mls/hr Sodium Chloride (Normal Saline) 1,000 mls @ 999 mls/hr IV ASDIRECTED [facility] Sodium Chloride (Normal Saline) 1,000 mls @ 125 mls/hr IV ASDIRECTED [facility] Last Admin: 03/19/18 09:32 Dose: 125 mls/hr Magnesium Sulfate 2 gm/ Premix 50 mls @ 50 mls/hr IV ONETIME ONE Stop: 03/19/18 10:56 Loperamide HCl (Imodium) 2 mg PO ASDIRECTED PRN PRN Reason: Diarrhea Metoclopramide HCl (Reglan) 10 mg IVPUSH Q6H PRN PRN Reason: nausea and vomiting Ondansetron HCl (Zofran) 4 mg IVPUSH Q6H PRN PRN Reason: Nausea/Vomiting Pantoprazole Sodium (Protonix Iv) 40 mg IVPUSH DAILY [facility] Last Admin: 03/19/18 08:19 Dose: 40 mg Rifampin 300mg 1 each PO DAILY [facility] Last Admin: 03/19/18 08:19 Dose: 1 each Pyridoxine HCl (Vitamin B6-Pyridoxine) 50 mg PO DAILY [facility] Fluticasone/Salmeterol (Advair Diskus 250-50) 1 puff INH DAILY [facility] Last Admin: 03/19/18 09:02 Dose: 1 disk Tamsulosin HCl (Flomax) 0.4 mg PO DAILY [facility] Last Admin: 03/19/18 08:18 Dose: 0.4 mg Thiamine HCl (Vitamin B-1) 100 mg PO BEDTIME [facility] Vancomycin HCl (Pharmacy To Dose - Vancomycin) 1 dose .XX ASDIRECTED [facility] Vancomycin HCl (First-Vancomycin 25 Compounding Kit) 250 mg PO Q6HR [facility] Last Admin: 03/19/18 05:42 Dose: 250 mg Discontinued Medications Acetaminophen (Tylenol) 650 mg PO Q4H PRN PRN Reason: Pain (Mild 1-3)/fever Last Admin: 03/17/18 13:43 Dose: 650 mg Acetaminophen (Tylenol) 650 mg PO Q4H [facility] Last Admin: 03/17/18 17:58 Dose: 650 mg Gabapentin (Neurontin) 300 mg PO BID [facility] Gabapentin (Neurontin) 300 mg PO QID [facility] Last Admin: 03/17/18 20:10 Dose: 300 mg Meropenem 1 gm/ Sodium (Chloride) 100 mls @ 200 mls/hr IV ONETIME ONE Stop: 03/17/18 06:45 Last Admin: 03/17/18 06:39 Dose: 200 mls/hr Sodium Chloride (Normal Saline) 1,000 mls @ 999 mls/hr IV .Bolus ONE Stop: 03/17/18 07:30 Last Admin: 03/17/18 06:33 Dose: 999 mls/hr Albumin Human (Flexbumin 25%) 12.5 gm in 50 mls @ 100 mls/hr IV ONETIME ONE Stop: 03/17/18 08:41 Last Admin: 03/17/18 08:45 Dose: 100 mls/hr Albumin Human (Flexbumin 25%) 12.5 gm in 50 mls @ 100 mls/hr IV ONETIME ONE Stop: 03/17/18 08:43 Last Admin: 03/17/18 08:57 Dose: 100 mls/hr Albumin Human (Flexbumin 25%) 12.5 gm in 50 mls @ 100 mls/hr IV ONETIME ONE Stop: 03/17/18 08:43 Last Admin: 03/17/18 09:19 Dose: 100 mls/hr Albumin Human (Flexbumin 25%) 12.5 gm in 50 mls @ 100 mls/hr IV ONETIME ONE Stop: 03/17/18 08:44 Last Admin: 03/17/18 09:44 Dose: Not Given Tobramycin 160 mg/ Sodium (Chloride) 104 mls @ 104 mls/hr IV ONETIME STA Stop: 03/17/18 10:31 Last Admin: 03/17/18 10:36 Dose: 104 mls/hr Sodium Chloride (Normal Saline) 1,000 mls @ 999 mls/hr IV .Bolus ONE Stop: 03/17/18 16:07 Last Admin: 03/17/18 15:18 Dose: Not Given Magnesium Sulfate 4 gm/ Premix 100 mls @ 50 mls/hr IV ONETIME ONE Stop: 03/18/18 14:47 Last Admin: 03/18/18 13:10 Dose: 50 mls/hr Ibuprofen (Motrin) 600 mg PO ONETIME ONE Stop: 03/17/18 06:21 Last Admin: 03/17/18 06:27 Dose: 600 mg Lidocaine (Xylocaine-Mpf 2%) Confirm Administered Dose 5 ml .ROUTE .STK-MED ONE Stop: 03/17/18 09:42 Last Admin: 03/17/18 09:45 Dose: 5 ml Non-Formulary Medication (Rifampin) 300 mg PO DAILY [facility] Last Admin: 03/17/18 10:38 Dose: 300 mg Tiotropium [place] (Spiriva Handihaler) 0 mcg INH DAILY [facility] Last Admin: 03/17/18 10:39 Dose: 1 inhalation Vancomycin HCl (First-Vancomycin 25 Compounding Kit) 250 mg PO Q6H [facility] Last Admin: 03/17/18 18:30 Dose: Not Given Vancomycin HCl (First-Vancomycin 25 Compounding Kit) 250 mg PO Q6H [facility] - Exam General: Alert, Oriented, Cooperative, No Acute Distress Lungs: Clear to Auscultation, Normal Respiratory Effort Cardiovascular: Regular Rate, Regular Rhythm GI/Abdominal Exam: Normal Bowel Sounds, Soft, Non-Tender, No Organomegaly, No Distention, No Abnormal Bruit, No Mass, Pelvis Stable Extremities: Normal Inspection, Normal Range of Motion, Non-Tender, No Pedal Edema, Normal Capillary Refill Peripheral Pulses: 2+: Radial (L), Radial (R), Posterior Tibial (L), Posterior Tibial (R) Skin: Warm, Dry, Intact Neurological: No New Focal Deficit Psy/Mental Status: Alert, Normal Affect, Normal Mood - Problem List & Annotations (1) Anemia SNOMED Code(s): 579674765 Code(s): D64.9 - ANEMIA, UNSPECIFIED Status: Acute Current Visit: Yes (2) Sepsis SNOMED Code(s): 17822013 Code(s): A41.9 - SEPSIS, UNSPECIFIED ORGANISM Status: Acute Priority: High Current Visit: Yes (3) UTI, Urinary tract infectious disease SNOMED Code(s): 63159323 Code(s): N39.0 - URINARY TRACT INFECTION, SITE NOT SPECIFIED Status: Acute Current Visit: No - Problem List Review Problem List Initiated/Reviewed/Updated: Yes - My Orders Last 24 Hours: My Active Orders 03/19/18 05:54 MAGNESIUM [CHEM] Routine 03/19/18 09:57 Magnesium Sulfate/Water [Magnesium Sulfate 2 GM in Water 50 ML] 2 gm Premix Bag 1 bag IV ONETIME 03/19/18 09:59 Loperamide [Imodium] 2 mg PO ASDIRECTED PRN Transfuse Red Blood Cells [COMM] Routine 03/19/18 10:01 HEMOGLOBIN/HEMATOCRIT,HH [HEME] Routine - Assessment Assessment:: 68-year-old male admitted with urosepsis. #1. Urosepsis: -Essentially has resolved. Vital signs are normal. -Abdomen/pelvis CT shows cholelithiasis and air in the bladder and the right renal collecting system consistent with infection. UA shows +3 bacteria. -Patient continues on meropenem and vancomycin IV. Blood cultures thus far negative. Prior urine cultures were positive for Klebsiella and the patient responded well to outpatient meropenem. Recommendation is that we wait for 3 days of blood cultures and if negative then the patient can be discharged on antibiotics if stable. -Arterial line was discontinued today. #2. Anemia of chronic disease: -Patient is status post 1 unit of packed red blood cells. Hemoglobin improved to 8.1. Patient will receive another unit of packed red blood cells morning. Follow-up H&H 1 hour after transfusion. -Continue oral iron 3 times a day. -Hemoccult was negative. #3. Diarrhea with recent history of C. difficile: -Stool cultures and C. difficile are negative. -Start Imodium. Continue brat diet. -Continue vancomycin 250 mg by mouth every 6 hours #4. Hypomagnesemia: -Repeat mag was 1.6. Continue to monitor and replace as needed. DVT prophylaxis: SCDs Disposition: 1-2 days pending improvement. <Carlos Dooley - Last Filed: 03/19/18 12:37> - Patient Data Vitals - Most Recent: Last Vital Signs Temp 98.3 F 03/19/18 12:00 Pulse 87 03/17/18 07:00 Resp 18 03/19/18 12:00 BP 114/64 03/19/18 12:00 Pulse Ox 99 03/19/18 12:00 I&O - Last 24 Hours: Intake & Output 03/18/18 03/19/18 03/19/18 22:59 06:59 14:59 Intake Total 2038 3293 Output Total 1450 650 Balance 588 2643 Lab Results Last 24 Hours: Laboratory Results - last 24 hr 03/18/18 03/18/18 03/18/18 Range/Units 11:28 11:28 11:28 WBC (4.0-11.0) K/uL RBC (4.50-5.90) M/uL Hgb (13.0-17.0) g/dL Hct (38.0-50.0) % MCV (80.0-98.0) fL MCH (27.0-32.0) pg MCHC (31.0-37.0) g/dL RDW Std Deviation (28.0-62.0) fl RDW Coeff of Jeannie (11.0-15.0) % Plt Count (150-400) K/uL MPV (7.40-12.00) fL Add Manual Diff Neutrophils % (Manual) (48.0-80.0) % Band Neutrophils % % Lymphocytes % (Manual) (16.0-40.0) % Monocytes % (Manual) (0.0-15.0) % Basophils % (Manual) (0.0-1.5) % Absolute Seg Neuts (1.4-5.7) Band Neutrophils # Lymphocytes # (Manual) (0.6-2.4) Monocytes # (Manual) (0.0-0.8) Basophils # (Manual) (0.0-0.1) Sodium (136-148) mmol/L Potassium (3.5-5.1) mmol/L Chloride (98-107) mmol/L Carbon Dioxide (21.0-32.0) mmol/L BUN (7.0-18.0) mg/dL Creatinine (0.8-1.3) mg/dL Est Cr Clr Drug Dosing mL/min Estimated GFR (MDRD) ml/min Glucose (74-106) mg/dL Calcium (8.5-10.1) mg/dL Magnesium (1.5-2.0) mg/dL Iron 7 L (50-175) ug/dL TIBC 63 L (250-450) ug/dL % Saturation 11.11 L (20-55) % Ferritin 403 H (26-388) ng/mL Total Bilirubin (0.2-1.0) mg/dL AST (15-37) IU/L ALT (14-63) IU/L Alkaline Phosphatase (46-116) U/L Total Protein (6.4-8.2) g/dL Albumin (3.4-5.0) g/dL Globulin (2.0-3.5) g/dL Albumin/Globulin Ratio (1.3-2.8) Vitamin B12 483 (193-986) pg/mL Folate (8.60-58.90) ng/mL Blood Type A POSITIVE Antibody Screen NEGATIVE Crossmatch See Detail 03/18/18 03/18/18 03/19/18 Range/Units 11:28 18:10 05:54 WBC 10.54 (4.0-11.0) K/uL RBC 2.77 L (4.50-5.90) M/uL Hgb 8.7 L 8.1 L (13.0-17.0) g/dL Hct 24.6 L (38.0-50.0) % MCV 88.8 (80.0-98.0) fL MCH 29.2 (27.0-32.0) pg MCHC 32.9 (31.0-37.0) g/dL RDW Std Deviation 44.3 (28.0-62.0) fl RDW Coeff of Jeannie 14 (11.0-15.0) % Plt Count 318 (150-400) K/uL MPV 9.30 (7.40-12.00) fL Add Manual Diff YES Neutrophils % (Manual) 77 (48.0-80.0) % Band Neutrophils % 3 % Lymphocytes % (Manual) 13 L (16.0-40.0) % Monocytes % (Manual) 4 (0.0-15.0) % Basophils % (Manual) 3 H (0.0-1.5) % Absolute Seg Neuts 8.1 H (1.4-5.7) Band Neutrophils # 0.3 Lymphocytes # (Manual) 1.4 (0.6-2.4) Monocytes # (Manual) 0.4 (0.0-0.8) Basophils # (Manual) 0.3 H (0.0-0.1) Sodium (136-148) mmol/L Potassium (3.5-5.1) mmol/L Chloride (98-107) mmol/L Carbon Dioxide (21.0-32.0) mmol/L BUN (7.0-18.0) mg/dL Creatinine (0.8-1.3) mg/dL Est Cr Clr Drug Dosing mL/min Estimated GFR (MDRD) ml/min Glucose (74-106) mg/dL Calcium (8.5-10.1) mg/dL Magnesium (1.5-2.0) mg/dL Iron (50-175) ug/dL TIBC (250-450) ug/dL % Saturation (20-55) % Ferritin (26-388) ng/mL Total Bilirubin (0.2-1.0) mg/dL AST (15-37) IU/L ALT (14-63) IU/L Alkaline Phosphatase (46-116) U/L Total Protein (6.4-8.2) g/dL Albumin (3.4-5.0) g/dL Globulin (2.0-3.5) g/dL Albumin/Globulin Ratio (1.3-2.8) Vitamin B12 (193-986) pg/mL Folate 23.50 (8.60-58.90) ng/mL Blood Type Antibody Screen Crossmatch 03/19/18 03/19/18 Range/Units 05:54 05:54 WBC (4.0-11.0) K/uL RBC (4.50-5.90) M/uL Hgb (13.0-17.0) g/dL Hct (38.0-50.0) % MCV (80.0-98.0) fL MCH (27.0-32.0) pg MCHC (31.0-37.0) g/dL RDW Std Deviation (28.0-62.0) fl RDW Coeff of Jeannie (11.0-15.0) % Plt Count (150-400) K/uL MPV (7.40-12.00) fL Add Manual Diff Neutrophils % (Manual) (48.0-80.0) % Band Neutrophils % % Lymphocytes % (Manual) (16.0-40.0) % Monocytes % (Manual) (0.0-15.0) % Basophils % (Manual) (0.0-1.5) % Absolute Seg Neuts (1.4-5.7) Band Neutrophils # Lymphocytes # (Manual) (0.6-2.4) Monocytes # (Manual) (0.0-0.8) Basophils # (Manual) (0.0-0.1) Sodium 138 (136-148) mmol/L Potassium 3.4 L (3.5-5.1) mmol/L Chloride 109 H (98-107) mmol/L Carbon Dioxide 18.7 L (21.0-32.0) mmol/L BUN 24 H (7.0-18.0) mg/dL Creatinine 1.8 H (0.8-1.3) mg/dL Est Cr Clr Drug Dosing 40.67 mL/min Estimated GFR (MDRD) 37.5 ml/min Glucose 105 (74-106) mg/dL Calcium 7.4 L (8.5-10.1) mg/dL Magnesium 1.6 (1.5-2.0) mg/dL Iron (50-175) ug/dL TIBC (250-450) ug/dL % Saturation (20-55) % Ferritin (26-388) ng/mL Total Bilirubin 0.2 (0.2-1.0) mg/dL AST 17 (15-37) IU/L ALT 8 L (14-63) IU/L Alkaline Phosphatase 126 H (46-116) U/L Total Protein 5.2 L (6.4-8.2) g/dL Albumin 1.4 L (3.4-5.0) g/dL Globulin 3.8 H (2.0-3.5) g/dL Albumin/Globulin Ratio 0.4 L (1.3-2.8) Vitamin B12 (193-986) pg/mL Folate (8.60-58.90) ng/mL Blood Type Antibody Screen Crossmatch [place] Results Last 24 Hours: Microbiology 03/17/18 10:20 Aerobic Blood Culture - Preliminary Blood - Venous - Lab Draw NO GROWTH AFTER 2 DAYS Anaerobic Blood Culture - Preliminary NO GROWTH AFTER 2 DAYS 03/17/18 10:06 Aerobic Blood Culture - Preliminary Blood - Venous NO GROWTH AFTER 2 DAYS Anaerobic Blood Culture - Preliminary NO GROWTH AFTER 2 DAYS 03/17/18 21:30 Stool Culture - Final Stool / Feces NO SALMONELLA, SHIGELLA,OR E.COLI O157 ISOLATED Campylobacter Antigen Assay - Final NEGATIVE CAMPYLOBACTER AG - Final NEGATIVE FOR SHIGA TOXIN 1 - Final NEGATIVE FOR SHIGA TOXIN 2 03/17/18 17:05 Urine Culture - Preliminary Urine, Clean Catch 03/18/18 20:00 Stool Occult Blood ([facility]) - Final Stool / Feces NEGATIVE OCCULT BLOOD Med Orders - Current: Current Medications Acetaminophen (Tylenol) 650 mg PO Q4H PRN PRN Reason: Fever Last Admin: 03/18/18 08:19 Dose: 650 mg Albuterol/Ipratropium (Duoneb 3.0-0.5 Mg/3 Ml) 3 ml NEB Q4HRRT PRN PRN Reason: sob , wheezing Aspirin (Halfprin) 81 mg PO DAILY [facility] Last Admin: 03/19/18 08:18 Dose: 81 mg Atorvastatin Calcium (Lipitor) 20 mg PO DAILY [facility] Last Admin: 03/19/18 08:18 Dose: 20 mg Ferrous Sulfate (Ferrous Sulfate) 325 mg PO TIDMEALS [facility] Last Admin: 03/19/18 12:01 Dose: 325 mg Finasteride (Proscar) 5 mg PO DAILY [facility] Last Admin: 03/19/18 08:18 Dose: 5 mg Folic Acid (Folic Acid) 1 mg PO DAILY [facility] Last Admin: 03/19/18 08:18 Dose: 1 mg Gabapentin (Neurontin) 600 mg PO QID [facility] Last Admin: 03/19/18 12:01 Dose: 600 mg Heparin Sodium (Porcine) (Heparin Sodium) 5,000 units SUBCUT Q12HR [facility] Last Admin: 03/19/18 08:19 Dose: 5,000 units Sodium Chloride (Normal Saline) 500 mls @ 999 mls/hr IV .BOLUS [facility] Last Admin: 03/17/18 06:14 Dose: 999 mls/hr Norepinephrine Bitartrate (Norepinephr-0.9% Nacl 4 Mg/250) 4 mg in 250 mls @ 7.5 mls/hr IV TITRATE [facility]; Protocol Last Titration: 03/18/18 01:00 Dose: 0 mcg/min, 0 mls/hr Meropenem 1 gm/ Sodium (Chloride) 100 mls @ 200 mls/hr IV BID [facility] Last Admin: 03/19/18 08:19 Dose: 200 mls/hr Vancomycin HCl 1 gm/ Sodium (Chloride) 250 mls @ 250 mls/hr IV Q24H [facility] Last Admin: 03/19/18 10:07 Dose: 250 mls/hr Loperamide HCl (Imodium) 2 mg PO ASDIRECTED PRN PRN Reason: Diarrhea Metoclopramide HCl (Reglan) 10 mg IVPUSH Q6H PRN PRN Reason: nausea and vomiting Ondansetron HCl (Zofran) 4 mg IVPUSH Q6H PRN PRN Reason: Nausea/Vomiting Pantoprazole Sodium (Protonix Iv) 40 mg IVPUSH DAILY [facility] Last Admin: 03/19/18 08:19 Dose: 40 mg Rifampin 300mg 1 each PO DAILY [facility] Last Admin: 03/19/18 08:19 Dose: 1 each Pyridoxine HCl (Vitamin B6-Pyridoxine) 50 mg PO DAILY [facility] Fluticasone/Salmeterol (Advair Diskus 250-50) 1 puff INH DAILY [facility] Last Admin: 03/19/18 09:02 Dose: 1 disk Tamsulosin HCl (Flomax) 0.4 mg PO DAILY [facility] Last Admin: 03/19/18 08:18 Dose: 0.4 mg Thiamine HCl (Vitamin B-1) 100 mg PO BEDTIME [facility] Vancomycin HCl (Pharmacy To Dose - Vancomycin) 1 dose .XX ASDIRECTED [facility] Vancomycin HCl (First-Vancomycin 25 Compounding Kit) 250 mg PO Q6HR [facility] Last Admin: 03/19/18 12:01 Dose: 250 mg Discontinued Medications Acetaminophen (Tylenol) 650 mg PO Q4H PRN PRN Reason: Pain (Mild 1-3)/fever Last Admin: 03/17/18 13:43 Dose: 650 mg Acetaminophen (Tylenol) 650 mg PO Q4H [facility] Last Admin: 03/17/18 17:58 Dose: 650 mg Gabapentin (Neurontin) 300 mg PO BID [facility] Gabapentin (Neurontin) 300 mg PO QID [facility] Last Admin: 03/17/18 20:10 Dose: 300 mg Meropenem 1 gm/ Sodium (Chloride) 100 mls @ 200 mls/hr IV ONETIME ONE Stop: 03/17/18 06:45 Last Admin: 03/17/18 06:39 Dose: 200 mls/hr Sodium Chloride (Normal Saline) 1,000 mls @ 999 mls/hr IV .Bolus ONE Stop: 03/17/18 07:30 Last Admin: 03/17/18 06:33 Dose: 999 mls/hr Albumin Human (Flexbumin 25%) 12.5 gm in 50 mls @ 100 mls/hr IV ONETIME ONE Stop: 03/17/18 08:41 Last Admin: 03/17/18 08:45 Dose: 100 mls/hr Albumin Human (Flexbumin 25%) 12.5 gm in 50 mls @ 100 mls/hr IV ONETIME ONE Stop: 03/17/18 08:43 Last Admin: 03/17/18 08:57 Dose: 100 mls/hr Albumin Human (Flexbumin 25%) 12.5 gm in 50 mls @ 100 mls/hr IV ONETIME ONE Stop: 03/17/18 08:43 Last Admin: 03/17/18 09:19 Dose: 100 mls/hr Albumin Human (Flexbumin 25%) 12.5 gm in 50 mls @ 100 mls/hr IV ONETIME ONE Stop: 03/17/18 08:44 Last Admin: 03/17/18 09:44 Dose: Not Given Sodium Chloride (Normal Saline) 1,000 mls @ 999 mls/hr IV ASDIRECTED [facility] Last Admin: 03/17/18 15:08 Dose: 999 mls/hr Tobramycin 160 mg/ Sodium (Chloride) 104 mls @ 104 mls/hr IV ONETIME STA Stop: 03/17/18 10:31 Last Admin: 03/17/18 10:36 Dose: 104 mls/hr Sodium Chloride (Normal Saline) 1,000 mls @ 999 mls/hr IV .Bolus ONE Stop: 03/17/18 16:07 Last Admin: 03/17/18 15:18 Dose: Not Given Sodium Chloride (Normal Saline) 1,000 mls @ 999 mls/hr IV ASDIRECTED [facility] Sodium Chloride (Normal Saline) 1,000 mls @ 125 mls/hr IV ASDIRECTED [facility] Last Admin: 03/19/18 09:32 Dose: 125 mls/hr Magnesium Sulfate 4 gm/ Premix 100 mls @ 50 mls/hr IV ONETIME ONE Stop: 03/18/18 14:47 Last Admin: 03/18/18 13:10 Dose: 50 mls/hr Magnesium Sulfate 2 gm/ Premix 50 mls @ 50 mls/hr IV ONETIME ONE Stop: 03/19/18 10:56 Last Admin: 03/19/18 10:57 Dose: Not Given Ibuprofen (Motrin) 600 mg PO ONETIME ONE Stop: 03/17/18 06:21 Last Admin: 03/17/18 06:27 Dose: 600 mg Lidocaine (Xylocaine-Mpf 2%) Confirm Administered Dose 5 ml .ROUTE .STK-MED ONE Stop: 03/17/18 09:42 Last Admin: 03/17/18 09:45 Dose: 5 ml Non-Formulary Medication (Rifampin) 300 mg PO DAILY [facility] Last Admin: 03/17/18 10:38 Dose: 300 mg Potassium Chloride (Potassium Chloride) 40 meq PO ONETIME ONE Stop: 03/19/18 11:12 Last Admin: 03/19/18 11:58 Dose: 40 meq Tiotropium [place] (Spiriva Handihaler) 0 mcg INH DAILY [facility] Last Admin: 03/17/18 10:39 Dose: 1 inhalation Vancomycin HCl (First-Vancomycin 25 Compounding Kit) 250 mg PO Q6H [facility] Last Admin: 03/17/18 18:30 Dose: Not Given Vancomycin HCl (First-Vancomycin 25 Compounding Kit) 250 mg PO Q6H [facility] - Problem List & Annotations (1) Septic shock SNOMED Code(s): 39420178 Code(s): A41.9 - SEPSIS, UNSPECIFIED ORGANISM; R65.21 - SEVERE SEPSIS WITH SEPTIC SHOCK Status: Acute Current Visit: Yes (2) CKD (chronic kidney disease) stage 4, GFR 15-29 ml/min SNOMED Code(s): 587193751 Code(s): N18.4 - CHRONIC KIDNEY DISEASE, STAGE 4 (SEVERE) Status: Acute Current Visit: Yes (3) UTI (urinary tract infection) SNOMED Code(s): 14229398 Code(s): N39.0 - URINARY TRACT INFECTION, SITE NOT SPECIFIED Status: Acute Priority: High Current Visit: Yes (4) BPH (benign prostatic hyperplasia) SNOMED Code(s): 661603132 Code(s): N40.0 - BENIGN PROSTATIC HYPERPLASIA WITHOUT LOWER URINRY TRACT SYMP Status: Acute Current Visit: Yes (5) Multiple fractures of rib involving four or more ribs SNOMED Code(s): 9498555 Code(s): S22.49XA - MULTIPLE FRACTURES OF RIBS, UNSP SIDE, INIT FOR CLOS FX Status: Acute Current Visit: Yes (6) Anemia SNOMED Code(s): 950875200 Code(s): D64.9 - ANEMIA, UNSPECIFIED Status: Acute Current Visit: Yes Qualifiers: Other causes of anemia: chronic disease, other (7) Hypomagnesemia SNOMED Code(s): 663272573 Code(s): E83.42 - HYPOMAGNESEMIA Status: Acute Current Visit: Yes - Problem List Review Problem List Initiated/Reviewed/Updated: Yes - My Orders Last 24 Hours: My Active Orders 03/18/18 15:00 Patient's Own Medication [Ptom] 1 each PO DAILY 03/18/18 15:58 Communication Order [RC] ROUTINE 03/18/18 17:37 Communication Order [RC] ROUTINE 03/18/18 20:00 Occult Blood Diagnostic GI [OCCULT BLOOD DIAGNOSTIC] [OP] Routine 03/19/18 08:00 Ferrous Sulfate 325 mg PO TIDMEALS 03/19/18 09:33 Arterial Line Discontinue [OM.PC] Routine 03/19/18 21:00 Thiamine [Vitamin B-1] 100 mg PO BEDTIME 03/19/18 Breakfast BRAT Diet [DIET] 03/20/18 05:11 CBC WITH AUTO DIFF [HEME] AM COMPREHENSIVE METABOLIC PN,CMP [CHEM] AM 03/20/18 09:00 Vitamin B6-pyridOXINE 50 mg PO DAILY 03/21/18 05:11 CBC WITH AUTO DIFF [HEME] AM COMPREHENSIVE METABOLIC PN,CMP [CHEM] AM 03/22/18 05:11 CBC WITH AUTO DIFF [HEME] AM COMPREHENSIVE METABOLIC PN,CMP [CHEM] AM - Assessment Assessment:: Patient seen and examined with resident , agree with assessment and plan. History of ribs osteomyelitis : will continue rifampin 600 mg po daily. DVt prof . heparin sq
[2018-03-19] MEDS ORDERED: Potassium Chloride 10% 20 MEQ/15 ML Soln 30 ML UD Cup PO ONE (11:11)
--- NOTE | 2018-03-19 11:52 | CT ---
EXAM DATE: 03/17/18 PATIENT'S AGE: 68 Patient: COURTNEY PAEZ Facility: [place], [place] Site . Site : [id number] Study: CT Abdomen/Pelvis W/O [id number]/21/2018 4:53:01 PM Ordering Physician: Miah Gonzalez Final Report: TECHNIQUE: CT abdomen and pelvis without IV contrast. Oral contrast was administered. INDICATION: Generalized abdominal pain. COMPARISON: 08/02/2017 CT. FINDINGS: Postsurgical changes in the visualized right lower ribs, and right lung base pleural thickening and scarring. Small stone in the fundus of the gallbladder. Gallbladder is nondistended. The liver, spleen, pancreas and adrenal glands are normal. There is very mild hydronephrosis of the right kidney. Small amount of air within the upper pole collecting system right kidney and a large amount of air within the bladder. Findings are compatible with infection or recent instrumentation /catheterization. The bladder is thick-walled as on the prior exam. No ureteral stone. No bowel obstruction. Marked aortoiliac atherosclerosis. No adenopathy, free air. Trace nonspecific free fluid in the pelvis. Multiple chronic compression fractures. IMPRESSION: 1. Air in the urinary bladder and right renal collecting system. Differential considerations include infection and recent instrumentation. 2. Cholelithiasis. Please note that all CT scans performed at this facility use dose modulation, iterative reconstruction, and/or weight based dosing when appropriate to reduce radiation dose to as low as reasonably achievable. Dictated by Abdi Kemp MD @ 03/17/2018 5:00:45 PM Please note that all CT scans at this facility use dose modulation, iterative reconstruction, and/or weight-based dosing when appropriate to reduce radiation dose to as low as reasonably achievable. Dictated by: Abdi Kemp MD @ 03/17/2018 17:00:49 (Electronic Signature) Report Signed by Proxy. [facility]
[2018-03-19] MEDS: Acetaminophen 325 MG Tab PO PRN ×2 (15:32→20:27)
[2018-03-19] MEDS ORDERED: Temazepam 15 MG Cap PO PRN (19:04)
[2018-03-19] MEDS ORDERED: Thiamine 100 MG Tab PO SCH (21:00)
[2018-03-20] MEDS: Vancomycin 25 MG/ML Compounding Kit PO SCH ×2 (00:38→05:47)
[2018-03-20] MEDS: Gabapentin 300 MG Cap PO SCH ×3 (00:39→12:35)
[2018-03-20] MEDS: Acetaminophen 325 MG Tab PO PRN ×2 (02:13→09:00)
[2018-03-20] MEDS: Heparin Sodium 5,000 Units/ML Vial SUBCUT SCH (08:17)
[2018-03-20] MEDS: Pantoprazole 40 MG Vial IVPUSH SCH (08:18)
[2018-03-20] MEDS: Tamsulosin 0.4 MG Cap.ER PO SCH (08:18)
[2018-03-20] MEDS: Aspirin 81 MG Tab.EC PO SCH (08:18)
[2018-03-20] MEDS: Folic Acid 1 MG Tab PO SCH (08:18)
[2018-03-20] MEDS: atorvaSTATin 20 MG Tab PO SCH (08:18)
[2018-03-20] MEDS: Finasteride 5 MG Tab PO SCH (08:18)
[2018-03-20] MEDS: Ferrous Sulfate 325 MG Tab PO SCH ×2 (08:18→12:35)
[2018-03-20] MEDS: RIFAMPIN 300 MG PO SCH (08:19)
[2018-03-20] MEDS: Meropenem 1 GM in Sodium Chloride 0.9% 100 ML IV SCH (09:00)
[2018-03-20] MEDS ORDERED: Vitamin B6-pyridOXINE 50 MG Tab PO SCH (09:00)
[2018-03-20] MEDS: Fluticasone/Salmeterol 250-50 MCG Inhalation Powder 14/Diskus INH SCH (09:10)
[2018-03-20] MEDS ORDERED: Amitriptyline 25 MG Tab PO SCH (09:15)
[2018-03-20] MEDS ORDERED: Potassium Chloride 20 MEQ Tab.ER PO ONE (14:18)
[2018-03-20 16:04] VITALS: BP 161/94
--- NOTE | 2018-03-20 16:49 | US ---
EXAMINATION: Fluoro and ultrasound guided left-sided PICC line placement and left venogram HISTORY: Need for long-term antibiotics. TECHNIQUE/FINDINGS: After written informed consent was obtained from the patient using ultrasound an d Fluoro guidance under aseptic conditions utilizing 1% lidocaine as local anesthesia left basilic ve in was accessed. A 5 Micron[place] dual-lumen PICC catheter was attempted to be passed however and into resi stance. The initial wire was replaced back into the PICC line and approximately 15 mL of Isovue-300 w as injected demonstrating a large segment of moderate stenosis extending to the left axillary vein. G iven the appearance a 4 Micronesian single lumen PICC line was attempted and this was able to be passed pa st the region of stenosis. There is good blood return and the PICC line was flushed. IMPRESSION: 1. Successful Fluoro and ultrasound guided PICC line placement. 2. Moderate to severe stenosis noted within the distal basilic vein extending to the axillary region.
[2018-03-20] MEDS ORDERED: Meropenem 1 GM in Sodium Chloride 0.9% 100 ML IV SCH (17:00)
--- NOTE | 2018-04-30 13:05 | PCM.DCSUM1 ---
Discharge Summary - Hospital Course Free Text/Narrative:: Admission diagnosis: #1. Urosepsis #2. Diarrhea with recent C. difficile infection #3. Chronic kidney disease stage IV #4. Anemia of chronic disease Discharge diagnosis: #1. Urosepsis, resolved #2. Diarrhea with recent C. difficile infection #3. Chronic kidney disease stage IV, stable #4. Anemia of chronic disease, improved 68-year-old male that was admitted with urosepsis. Patient did have a central line placed in the right internal jugular vein until his urosepsis resolved. This was placed by Dr. Torres. Initial white blood cell count was 21.8 and returned to within normal limits while he was treated with IV antibiotics including meropenem and vancomycin. Urinalysis showed +3 bacteria, white blood cells 45-50 and cultures were positive for Klebsiella pneumonia. Because of the urosepsis, the patient was also treated with IV hydrocortisone to help improve his blood pressure. Home blood pressure medications were held until his urosepsis resolved. At discharge, PICC line was inserted and the patient was started on meropenem twice a day for the next 11 days. Patient has previous UAs with positive Klebsiella pneumonia cultures. His urosepsis did resolve with IV fluids and IV antibiotics. Blood cultures were negative 5 days. Patient was also continued on by mouth vancomycin which he was taking for recent C. difficile infection. Repeat stool cultures were negative for C. difficile or any other stool infections. Patient started on Imodium to see if this would help with his diarrhea. Patient also had a low hemoglobin of 8.7 secondary to anemia of chronic disease as suggested by his iron studies. He was transfused 2 units of packed red blood cells and his hemoglobin improved to 10. Hemoccult was negative. UA did show large occult blood. Patient does follow with Dr. Navas, urologist, here in [place], [place] and will be set up with him at discharge. Lactate was negative during admission. Abdomen/pelvis CT was done and this showed cholelithiasis along with air in the bladder and the renal collecting system. This is consistent with infection. At the time of discharge, the patient's urosepsis had resolved and he was tolerating oral intake and voiding appropriately. He was ambulating without assistance. Patient was much improved from admission. - Discharge Data Discharge Date: 03/20/18 Discharge Disposition: Home, Self-Care 01 Condition: Fair - Discharge Diagnosis/Problem(s) (1) Anemia SNOMED Code(s): 822098823 ICD Code: D64.9 - ANEMIA, UNSPECIFIED Status: Acute Qualifiers: Other causes of anemia: chronic disease, other (2) Sepsis SNOMED Code(s): 82193817 ICD Code: A41.9 - SEPSIS, UNSPECIFIED ORGANISM Status: Acute Priority: High Qualifiers: (3) UTI, Urinary tract infectious disease SNOMED Code(s): 82307931 ICD Code: N39.0 - URINARY TRACT INFECTION, SITE NOT SPECIFIED Status: Acute - Patient Instructions Diet: Usual Diet as Tolerated Activity: As Tolerated Driving: Do Not Drive Showering/Bathing: May Shower Notify Provider of: Fever, Increased Pain, Nausea and/or Vomiting - Discharge Plan Home Medications: Home Meds Fluticasone/Salmeterol [Advair Diskus 250-50] 1 puff INH BID 04/21/17 [History] Aspirin [Ecotrin] 81 mg PO DAILY 05/04/17 [History] Albuterol Sulfate 2.5 mg NEB Q6HR PRN 06/18/17 [History] Carvedilol 3.125 mg PO BIDMEALS 06/18/17 [History] Finasteride 5 mg PO DAILY 11/24/17 [History] Tamsulosin HCl 0.4 mg PO DAILY 11/24/17 [History] atorvaSTATin [Lipitor] 20 mg PO BEDTIME 11/24/17 [History] Albuterol/Ipratropium [Combivent Respimat] 1 inh INH ASDIRECTED PRN 03/17/18 [ History] Gabapentin [Neurontin] 600 mg PO QID 03/17/18 [History] Rifampin 300 mg PO DAILY 03/17/18 [History] Doxycycline [Vibramycin] 100 mg PO BID 04/12/18 [History] Saccharomyces Boulardii [Florastor] 250 mg PO BID 04/12/18 [History] Vancomycin HCl 250 mg PO DAILY 04/12/18 [History] Fluticasone/Salmeterol [Advair 250-50 Diskus] 04/17/18 [History] Patient Handouts: Meropenem injection, Urinary Tract Infection, Adult Referrals: Antonio Arias MD [Physician] - 03/27/18 10:00 am Emmanuel Navas MD [Physician] - (needs an appointment CLAUDINE. Thanks!) - Discharge Summary/Plan Comment DC Time >30 min.: No Discharge Summary/Plan Comment: Admission diagnosis: #1. Urosepsis #2. Diarrhea with recent C. difficile infection #3. Chronic kidney disease stage IV #4. Anemia of chronic disease Discharge diagnosis: #1. Urosepsis with positive Klebsiella pneumonia cultures, resolved #2. Diarrhea with recent C. difficile infection #3. Chronic kidney disease stage IV, stable #4. Anemia of chronic disease, improved 68-year-old male that was admitted with urosepsis. Patient did have a central line placed in the right internal jugular vein until his urosepsis resolved. This was placed by Dr. Torres. Initial white blood cell count was 21.8 and returned to within normal limits while he was treated with IV antibiotics including meropenem and vancomycin. Urinalysis showed +3 bacteria, white blood cells 45-50 and cultures were positive for Klebsiella pneumonia. Because of the urosepsis, the patient was also treated with IV hydrocortisone to help improve his blood pressure. Home blood pressure medications were held until his urosepsis resolved. At discharge, PICC line was inserted and the patient was started on meropenem twice a day for the next 11 days. Patient has previous UAs with positive Klebsiella pneumonia cultures. His urosepsis did resolve with IV fluids and IV antibiotics. Blood cultures were negative 5 days. Patient was also continued on by mouth vancomycin which he was taking for recent C. difficile infection. Repeat stool cultures were negative for C. difficile or any other stool infections. Patient started on Imodium to see if this would help with his diarrhea. Patient also had a low hemoglobin of 8.7 secondary to anemia of chronic disease as suggested by his iron studies. He was transfused 2 units of packed red blood cells and his hemoglobin improved to 10. Hemoccult was negative. UA did show large occult blood. Patient does follow with Dr. Navas, urologist, here in [place], [place] and will be set up with him at discharge. Lactate was negative during admission. Abdomen/pelvis CT was done and this showed cholelithiasis along with air in the bladder and the renal collecting system. This is consistent with infection. At the time of discharge, the patient's urosepsis had resolved and he was tolerating oral intake and voiding appropriately. He was ambulating without assistance. Patient was much improved from admission. Discharge plan: -A PICC line was inserted prior to discharge and the patient will receive meropenem 1 g twice a day over the next 11 days. -Patient has a follow-up appointment with his PCP, Dr. Antonio Arias on March 27. -Patient will also have a follow-up appointment with Dr. Navas, urologist, who the patient follows with closely. -All other home medications were resumed including by mouth vancomycin for recent C. difficile infection. - Patient Data Vitals - Most Recent: Last Vital Signs Temp 98.5 F 03/20/18 11:00 Pulse 81 03/20/18 16:00 Resp 16 03/20/18 16:00 BP 161/94 H 03/20/18 16:00 Pulse Ox 100 03/20/18 16:00 Weight - Most Recent: 176 lb 9.444 oz Med Orders - Current: Current Medications Discontinued Medications Acetaminophen (Tylenol) 650 mg PO Q4H PRN PRN Reason: Pain (Mild 1-3)/fever Last Admin: 03/17/18 13:43 Dose: 650 mg Acetaminophen (Tylenol) 650 mg PO Q4H [facility] Last Admin: 03/17/18 17:58 Dose: 650 mg Acetaminophen (Tylenol) 650 mg PO Q4H PRN PRN Reason: Fever Last Admin: 03/20/18 09:00 Dose: 650 mg Albuterol/Ipratropium (Duoneb 3.0-0.5 Mg/3 Ml) 3 ml NEB Q4HRRT PRN PRN Reason: sob , wheezing Amitriptyline HCl (Elavil) 50 mg PO DAILY [facility] Last Admin: 03/20/18 09:46 Dose: 50 mg Aspirin (Halfprin) 81 mg PO DAILY [facility] Last Admin: 03/20/18 08:18 Dose: 81 mg Atorvastatin Calcium (Lipitor) 20 mg PO DAILY [facility] Last Admin: 03/20/18 08:18 Dose: 20 mg Ferrous Sulfate (Ferrous Sulfate) 325 mg PO TIDMEALS [facility] Last Admin: 03/20/18 12:35 Dose: 325 mg Finasteride (Proscar) 5 mg PO DAILY [facility] Last Admin: 03/20/18 08:18 Dose: 5 mg Folic Acid (Folic Acid) 1 mg PO DAILY [facility] Last Admin: 03/20/18 08:18 Dose: 1 mg Gabapentin (Neurontin) 300 mg PO BID JOSE Gabapentin (Neurontin) 300 mg PO QID [facility] Last Admin: 03/17/18 20:10 Dose: 300 mg Gabapentin (Neurontin) 600 mg PO QID [facility] Last Admin: 03/20/18 12:35 Dose: 600 mg Heparin Sodium (Porcine) (Heparin Sodium) 5,000 units SUBCUT Q12HR [facility] Last Admin: 03/20/18 08:17 Dose: 5,000 units Sodium Chloride (Normal Saline) 500 mls @ 999 mls/hr IV .BOLUS [facility] Last Admin: 03/17/18 06:14 Dose: 999 mls/hr Meropenem 1 gm/ Sodium (Chloride) 100 mls @ 200 mls/hr IV ONETIME ONE Stop: 03/17/18 06:45 Last Admin: 03/17/18 06:39 Dose: 200 mls/hr Sodium Chloride (Normal Saline) 1,000 mls @ 999 mls/hr IV .Bolus ONE Stop: 03/17/18 07:30 Last Admin: 03/17/18 06:33 Dose: 999 mls/hr Albumin Human (Flexbumin 25%) 12.5 gm in 50 mls @ 100 mls/hr IV ONETIME ONE Stop: 03/17/18 08:41 Last Admin: 03/17/18 08:45 Dose: 100 mls/hr Albumin Human (Flexbumin 25%) 12.5 gm in 50 mls @ 100 mls/hr IV ONETIME ONE Stop: 03/17/18 08:43 Last Admin: 03/17/18 08:57 Dose: 100 mls/hr Albumin Human (Flexbumin 25%) 12.5 gm in 50 mls @ 100 mls/hr IV ONETIME ONE Stop: 03/17/18 08:43 Last Admin: 03/17/18 09:19 Dose: 100 mls/hr Albumin Human (Flexbumin 25%) 12.5 gm in 50 mls @ 100 mls/hr IV ONETIME ONE Stop: 03/17/18 08:44 Last Admin: 03/17/18 09:44 Dose: Not Given Sodium Chloride (Normal Saline) 1,000 mls @ 999 mls/hr IV ASDIRECTED [facility] Last Admin: 04/21/18 15:08 Dose: 999 mls/hr Norepinephrine Bitartrate (Norepinephr-0.9% Nacl 4 Mg/250) 4 mg in 250 mls @ 7.5 mls/hr IV TITRATE JOSE; Protocol Last Titration: 03/18/18 01:00 Dose: 0 mcg/min, 0 mls/hr Meropenem 1 gm/ Sodium (Chloride) 100 mls @ 200 mls/hr IV BID JOSE Last Admin: 03/20/18 09:00 Dose: 200 mls/hr Tobramycin 160 mg/ Sodium (Chloride) 104 mls @ 104 mls/hr IV ONETIME STA Stop: 03/17/18 10:31 Last Admin: 03/17/18 10:36 Dose: 104 mls/hr Vancomycin HCl 1 gm/ Sodium (Chloride) 250 mls @ 250 mls/hr IV Q24H JOSE Last Admin: 03/19/18 10:07 Dose: 250 mls/hr Sodium Chloride (Normal Saline) 1,000 mls @ 999 mls/hr IV .Bolus ONE Stop: 03/17/18 16:07 Last Admin: 03/17/18 15:18 Dose: Not Given Sodium Chloride (Normal Saline) 1,000 mls @ 999 mls/hr IV ASDIRECTED JOSE Sodium Chloride (Normal Saline) 1,000 mls @ 125 mls/hr IV ASDIRECTED JOSE Last Admin: 03/19/18 09:32 Dose: 125 mls/hr Magnesium Sulfate 4 gm/ Premix 100 mls @ 50 mls/hr IV ONETIME ONE Stop: 03/18/18 14:47 Last Admin: 03/18/18 13:10 Dose: 50 mls/hr Magnesium Sulfate 2 gm/ Premix 50 mls @ 50 mls/hr IV ONETIME ONE Stop: 03/19/18 10:56 Last Admin: 03/19/18 10:57 Dose: Not Given Meropenem 1 gm/ Sodium (Chloride) 100 mls @ 200 mls/hr IV Q8H JOSE Ibuprofen (Motrin) 600 mg PO ONETIME ONE Stop: 03/17/18 06:21 Last Admin: 03/17/18 06:27 Dose: 600 mg Lidocaine (Xylocaine-Mpf 2%) Confirm Administered Dose 5 ml .ROUTE .STK-MED ONE Stop: 03/17/18 09:42 Last Admin: 03/17/18 09:45 Dose: 5 ml Loperamide HCl (Imodium) 2 mg PO ASDIRECTED PRN PRN Reason: Diarrhea Metoclopramide HCl (Reglan) 10 mg IVPUSH Q6H PRN PRN Reason: nausea and vomiting Non-Formulary Medication (Rifampin) 300 mg PO DAILY [facility] Last Admin: 03/17/18 10:38 Dose: 300 mg Ondansetron HCl (Zofran) 4 mg IVPUSH Q6H PRN PRN Reason: Nausea/Vomiting Pantoprazole Sodium (Protonix Iv) 40 mg IVPUSH DAILY [facility] Last Admin: 03/20/18 08:18 Dose: 40 mg Rifampin 300mg 1 each PO DAILY [facility] Last Admin: 03/20/18 08:19 Dose: 1 each Potassium Chloride (Potassium Chloride) 40 meq PO ONETIME ONE Stop: 03/19/18 11:12 Last Admin: 03/19/18 11:58 Dose: 40 meq Potassium Chloride (Klor-Con M20) 40 meq PO ONETIME ONE Stop: 03/20/18 14:19 Last Admin: 03/20/18 14:36 Dose: 40 meq Pyridoxine HCl (Vitamin B6-Pyridoxine) 50 mg PO DAILY [facility] Last Admin: 03/20/18 11:45 Dose: Not Given Fluticasone/Salmeterol (Advair Diskus 250-50) 1 puff INH DAILY [facility] Last Admin: 03/19/18 09:02 Dose: 1 disk Fluticasone/Salmeterol (Advair Diskus 250-50) 1 puff INH BID [facility] Last Admin: 03/20/18 09:10 Dose: 1 puff Tamsulosin HCl (Flomax) 0.4 mg PO DAILY [facility] Last Admin: 03/20/18 08:18 Dose: 0.4 mg Temazepam (Restoril) 15 mg PO BEDTIME PRN PRN Reason: Insomnia Thiamine HCl (Vitamin B-1) 100 mg PO BEDTIME [facility] Last Admin: 03/19/18 20:27 Dose: 100 mg Tiotropium [place] (Spiriva Handihaler) 0 mcg INH DAILY [facility] Last Admin: 03/17/18 10:39 Dose: 1 inhalation Vancomycin HCl (Pharmacy To Dose - Vancomycin) 1 dose .XX ASDIRECTED [facility] Vancomycin HCl (First-Vancomycin 25 Compounding Kit) 250 mg PO Q6H [facility] Last Admin: 03/17/18 18:30 Dose: Not Given Vancomycin HCl (First-Vancomycin 25 Compounding Kit) 250 mg PO Q6H JOSE Vancomycin HCl (First-Vancomycin 25 Compounding Kit) 250 mg PO Q6HR [facility] Last Admin: 03/20/18 05:47 Dose: 250 mg
== END 2018-03-20 17:00 | disposition home or self-care (01) | DRG 871 ==
LOC: MW.ED 05:16 → MW.ICU 06:50
PROVIDERS: ADMIT Internal Medicine; ATTEND Internal Medicine
PROC: 03HB33Z Insertion of Infusion Device into Right Radial Artery, Percutaneous Approach (ICD-10-PCS; principal; 2018-03-17)
PROC: 05HM33Z Insertion of Infusion Device into Right Internal Jugular Vein, Percutaneous Approach (ICD-10-PCS; 2018-03-17)
PROC: 05HY33Z Insertion of Infusion Device into Upper Vein, Percutaneous Approach (ICD-10-PCS; 2018-03-20)
DX: A41.89 Other specified sepsis (principal); R65.21 Severe sepsis with septic shock; S22.49XA Multiple fractures of ribs, unspecified side, initial encounter for closed fracture; J44.9 Chronic obstructive pulmonary disease, unspecified; M86.9 Osteomyelitis, unspecified; N39.0 Urinary tract infection, site not specified; N18.4 Chronic kidney disease, stage 4 (severe); B96.1 Klebsiella pneumoniae [K. pneumoniae] as the cause of diseases classified elsewhere; D63.1 Anemia in chronic kidney disease; E78.00 Pure hypercholesterolemia, unspecified; I10 Essential (primary) hypertension; I12.9 Hypertensive chronic kidney disease with stage 1 through stage 4 chronic kidney disease, or unspecified chronic kidney disease; N40.0 Benign prostatic hyperplasia without lower urinary tract symptoms; R19.7 Diarrhea, unspecified; R41.3 Other amnesia; B02.9 Zoster without complications; E83.42 Hypomagnesemia; Z88.8 Allergy status to other drugs, medicaments and biological substances; Z87.820 Personal history of traumatic brain injury; Z79.899 Other long term (current) drug therapy; Z79.82 Long term (current) use of aspirin
CPT/HCPCS: 36415; 71045; 80053; 81001; 83605; 85025; 96361; 96365; 99285; A9270; J2185; J7030; J7040 ×2; 36430; 36569; 36600; 51702; 74176; 74176-26; 75820-26-LT; 75820-LT; 76937; 76937-26; 77001; 77001-26; 80202; 82272; 82607; 82728; 82746; 82803; 82962; 83550; 83735; 84153; 85014; 85018; 85027; 85045; 85610; 86850; 86900; 86901; 86920; 86921; 86922; 87040; 87046; 87086; 87186; 87324; 87899; 93005; 94640; C9113; J1644; J3260; J3370; J3475; J7050; P9016; P9047

== ENCOUNTER 2018-04-17 13:21 | Observation (INO) | payer MEDICARE, OTHER ==
[~2018-04-17 13:21] MED LIST: Sodium Chloride 0.9% 10 ML Syringe FLUSH PRN; Sodium Chloride 0.9% 2.5 ML Syringe FLUSH PRN
[2018-04-17] MEDS: Lactated Ringers 1,000 ML IV SCH ×2 (13:59→19:41)
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
[2018-04-17] MEDS ORDERED: Lidocaine 2% 5 ML SDV ONE (15:07)
[2018-04-17] MEDS ORDERED: Propofol 200 MG/20 ML SDV ONE ×2 (15:08→17:27)
[2018-04-17] MEDS ORDERED: ePHEDrine 50 MG/ML SDV ONE (15:08)
[2018-04-17] MEDS ORDERED: Ondansetron 4 MG/2 ML SDV ONE (15:08)
[2018-04-17] MEDS ORDERED: fentaNYL 100 MCG/2 ML SDV ONE (15:08)
[2018-04-17] MEDS: Meropenem 1 GM in Sodium Chloride 0.9% 100 ML IV SCH ×2 (15:45→23:47)
[2018-04-17] MEDS ORDERED: fentaNYL 100 MCG/2 ML SDV IVPUSH PRN (17:03)
--- NOTE | 2018-04-17 18:02 | PCM.POSTAN ---
POST ANESTHESIA ASSESSMENT - MENTAL STATUS Mental Status: Alert, Oriented Free Text/Narrative:: sign out by JKO to PAR. Stable without pain. - VITAL SIGNS Pulse Rate: 85 SaO2: 98 Resp Rate: 10 Blood Pressure: 105/69 - RESPIRATORY Respiratory Status: Respiratory Rate WNL, Airway Patent, O2 Saturation Stable - CARDIOVASCULAR CV Status: Pulse Rate WNL, Blood Pressure Stable - GASTROINTESTINAL GI Status: No Symptoms - PAIN Pain Score: 0 (spinal still active) - POST OP HYDRATION Hydration Status: Adequate & Stable
[2018-04-17] MEDS: Gabapentin 300 MG Cap PO SCH (20:10)
[2018-04-17] MEDS ORDERED: Gabapentin 300 MG Cap ONE (20:10)
[2018-04-18] MEDS: Gabapentin 300 MG Cap PO SCH ×3 (00:35→11:45)
[2018-04-18] MEDS: Acetaminophen/HYDROcodone 325-5 MG Tab PO PRN ×2 (06:00→11:51)
[2018-04-18] MEDS: Lactated Ringers 1,000 ML IV SCH (06:31)
--- NOTE | 2018-04-18 07:42 | PCM48HPAN ---
Post Anesthesia Note - EVALUATION WITHIN 48HRS OF ANESTHETIC Vital Signs in Normal Range: Yes Patient Participated in Evaluation: Yes Respiratory Function Stable: Yes Airway Patent: Yes Cardiovascular Function Stable: Yes Hydration Status Stable: Yes Pain Control Satisfactory: Yes (treated last few hours so he slept) Nausea and Vomiting Control Satisfactory: Yes Mental Status Recovered: Yes Pulse Rate: 85 Resp Rate: 19 Blood Pressure: 105/69
[2018-04-18] MEDS ORDERED: Carvedilol 3.125 MG Tab PO SCH (08:00)
--- NOTE | 2018-04-18 09:40 | PCM.SN ---
- Free Text/Narrative Note: doing well stable
--- NOTE | 2018-04-18 10:11 | OR ---
SURGEON: Emmanuel Navas M.D. DATE OF PROCEDURE: 04/17/2018 PREOPERATIVE DIAGNOSIS: Recurrent urinary sepsis with positive urine culture growing Klebsiella on more than one occasion. POSTOPERATIVE DIAGNOSIS: Recurrent urinary sepsis with positive urine culture growing Klebsiella on more than one occasion. OPERATION: TURP. FINDINGS: Prostate abscess with multiple prostate stones. DESCRIPTION OF THE PROCEDURE: Patient was given spinal anesthesia, placed in dorsal lithotomy position, prepped and draped in sterile drapes. The 26 resectoscope was introduced in the bladder without difficulty. The prostate was resected in the usual manner, uncovering a good-sized abscess on the right side with multiple prostate stones that were evacuated. Prostate chips were all submitted along with the stones. A 22 three-way [place] catheter was left in the bladder, connected to TUR drip. Estimated blood loss under 100 mL. The patient remained stable and was moved to recovery room in good condition. UTE / TERRELL /[id number]
[2018-04-18 15:56] VITALS: BP 134/81
--- NOTE | 2018-04-19 08:56 | DISCH ---
DATE OF DISCHARGE: 04/18/2018 PRIMARY CARE PHYSICIAN: Antonio Arias M.D. The patient is 68 years old. He had a TURP done yesterday for chronic urinary tract infection with suspected prostate source. He did well postoperatively. During the procedure, a good-sized prostatic abscess was uncovered and a bunch of prostate stones were removed. Postoperatively he did very well, remained stable and was discharged on the 1st postop day. At the time of discharge, he is passing his urine without difficulty. The urine is reasonably clear. He is instructed to come back for a urine culture in 2 weeks. Pathology still pending. UTE / TERRELL /[id number]
== END 2018-04-18 16:13 | disposition home or self-care (01) ==
LOC: MW.SDS 13:21 → MW.ICU 17:52
PROVIDERS: ADMIT Urology; ATTEND Urology
DX: N34.2 Other urethritis (principal); N40.1 Benign prostatic hyperplasia with lower urinary tract symptoms; R33.8 Other retention of urine; N42.0 Calculus of prostate; E78.00 Pure hypercholesterolemia, unspecified; I10 Essential (primary) hypertension; E87.6 Hypokalemia; J44.9 Chronic obstructive pulmonary disease, unspecified; G60.3 Idiopathic progressive neuropathy; Z87.440 Personal history of urinary (tract) infections; Z87.891 Personal history of nicotine dependence; Z79.82 Long term (current) use of aspirin; Z79.51 Long term (current) use of inhaled steroids; Z79.2 Long term (current) use of antibiotics; Z79.899 Other long term (current) drug therapy; Z88.1 Allergy status to other antibiotic agents
CPT/HCPCS: 36415; 52601; 80048; 85025; 88305; A9270; J2185; J2405; J3010; J7030; J7120; J2704

== ENCOUNTER 2018-08-21 13:51 | Emergency (ER) | payer MEDICARE, OTHER ==
[2018-08-21] MEDS ORDERED: Sodium Chloride 0.9% 10 ML Syringe FLUSH PRN (14:12)
[2018-08-21] MEDS ORDERED: Sodium Chloride 0.9% 1,000 ML IV ONE (14:12)
[2018-08-21] MEDS ORDERED: Sodium Chloride 0.9% 2.5 ML Syringe FLUSH PRN (14:12)
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
--- NOTE | 2018-08-21 15:20 | CR ---
EXAMINATION: Portable chest radiograph. HISTORY: Shortness of breath. Comparison: CT dated 05/28/2018, radiograph dated 03/17/2018. FINDINGS: The trachea is midline. The cardiomediastinal silhouette is within normal limits. No pulmonary infilt rates, effusions or pneumothorax. Chronic interstitial prominence. Multiple screw and plate hardware fixating old rib fractures again noted IMPRESSION: No acute cardiopulmonary process.
[2018-08-21] MEDS ORDERED: Meropenem 1 GM in Sodium Chloride 0.9% 100 ML IV ONE (15:24)
[2018-08-21 16:13] VITALS: BP 116/66
== END 2018-08-21 16:44 | disposition home or self-care (01) ==
LOC: MW.ED 13:51
DX: N39.0 Urinary tract infection, site not specified (principal); B96.1 Klebsiella pneumoniae [K. pneumoniae] as the cause of diseases classified elsewhere; M79.672 Pain in left foot; I10 Essential (primary) hypertension; Z79.82 Long term (current) use of aspirin; Z79.899 Other long term (current) drug therapy; Z88.8 Allergy status to other drugs, medicaments and biological substances
CPT/HCPCS: 36415; 71045; 80053; 81001; 83605; 85025; 87040; 87086; 96361; 96365; 99283; J2185; J7030; J7040; 87088; 87186

== ENCOUNTER 2019-04-09 10:19 | Emergency (ER) | payer MEDICARE, OTHER ==
[2019-04-09 10:25] VITALS: BP 145/110
[2019-04-09] MEDS ORDERED: predniSONE 20 MG Tab PO ONE (10:35)
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
[2019-04-09] MEDS ORDERED: Albuterol/Ipratropium 3.0-0.5 MG/3 ML Neb Soln NEB ONE (10:54)
--- NOTE | 2019-04-09 11:13 | CR ---
EXAMINATION: Two-view chest (PA and Lateral views). HISTORY: Shortness of breath. 09/15/2018, 08/21/2018 FINDINGS: The trachea is midline. The cardiomediastinal silhouette is within normal limits. No pulmonary infiltrates, effusions or pneumothorax. Chronic right bibasilar scarring, mild decreased within the left lung base. Right-sided screw and plate hardware fixation of multiple right ribs again noted. IMPRESSION: 1. Mildly increased left basilar infiltrate.
== END 2019-04-09 11:25 | disposition home or self-care (01) ==
LOC: MW.ED 10:19
DX: J40 Bronchitis, not specified as acute or chronic (principal); I10 Essential (primary) hypertension; Z88.8 Allergy status to other drugs, medicaments and biological substances; Z79.82 Long term (current) use of aspirin; Z79.899 Other long term (current) drug therapy; Z98.49 Cataract extraction status, unspecified eye; Z98.890 Other specified postprocedural states; Z87.891 Personal history of nicotine dependence
CPT/HCPCS: 71046; 94640; 99283; A9270; J7620-GY

== ENCOUNTER 2019-07-15 21:13 | Observation (INO) | payer MEDICARE, OTHER ==
[2019-07-15] MEDS ORDERED: Enoxaparin 100 MG/1 ML Syringe SUBCUT ONE (21:39)
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
[2019-07-15 22:03] LABS: CHLORIDE,CL 101 mmol/L (98-107); SODIUM,NA 135 mmol/L (136-148)
[2019-07-15] MEDS ORDERED: Furosemide 40 MG/4 ML VIAL IVPUSH ONE (22:48)
--- NOTE | 2019-07-15 22:57 | CR ---
INDICATION: Shortness of breath TECHNIQUE: Chest radiograph 2 views COMPARISON: 04/09/2019 FINDINGS: Mediastinum: The mediastinum is normal in appearance. The heart silhouette is normal in size and morphology. Lung: Both lungs are unremarkable in appearance. Mild blunting of the right lateral costophrenic sulcus is noted without change which may be due to small pleural effusion or pleural scarring. No pneumothorax is identified. rib fractures are seen without interval change. IMPRESSION: 1. No acute cardiopulmonary disease is seen. Dictated by Manuel Duffy MD @ 07/15/2019 10:55:34 PM Dictated by: Manuel Duffy MD @ 07/15/2019 22:55:41 (Electronically Signed)
[2019-07-16] MEDS ORDERED: Albuterol/Ipratropium 3.0-0.5 MG/3 ML Neb Soln NEB PRN (01:13)
[2019-07-16] MEDS ORDERED: Albuterol 8 GM Inhaler INH PRN (01:14)
[2019-07-16] MEDS ORDERED: LORazepam 1 MG Tab PO PRN (01:19)
[2019-07-16] MEDS ORDERED: LORazepam 2 MG/ML SDV IVPUSH PRN (01:20)
[2019-07-16] MEDS ORDERED: Acetaminophen 325 MG Tab PO PRN (01:21)
[2019-07-16] MEDS ORDERED: oxyCODONE 5 MG Tab PO PRN (01:22)
[2019-07-16] MEDS ORDERED: Temazepam 15 MG Cap PO PRN (01:22)
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
[2019-07-16] MEDS ORDERED: Albuterol 0.083% 2.5 MG/3 ML Neb Soln NEB PRN (07:24)
[2019-07-16] MEDS ORDERED: ALBUTEROL INH PRN (07:24)
[2019-07-16] MEDS ORDERED: IPRATROPIUM INH PRN (07:24)
[2019-07-16] MEDS ORDERED: Heparin Sodium 5,000 Units/ML Vial SUBCUT SCH (07:30)
[2019-07-16] MEDS ORDERED: Carvedilol 6.25 MG Tab PO SCH (08:00)
[2019-07-16] MEDS ORDERED: Fluticasone/Salmeterol 250-50 MCG Inhalation Powder 14/Diskus INH SCH (09:00)
[2019-07-16] MEDS ORDERED: Folic Acid 1 MG Tab PO SCH (09:00)
[2019-07-16] MEDS ORDERED: Aspirin 81 MG Tab.EC PO SCH (09:00)
[2019-07-16] MEDS ORDERED: Gabapentin 300 MG Cap PO SCH (09:00)
[2019-07-16 13:16] VITALS: BP 143/83
--- NOTE | 2019-07-18 15:52 | ECHO ---
The echocardiogram can be seen in this patient's EMR (Electronic Medical Record ) in the Reports section. The echocardiogram report has also been scanned into PACS and can be seen there as well. MARIA L
== END 2019-07-16 14:26 | disposition home or self-care (01) ==
LOC: MW.ED 21:13 → MW.MS 22:51
PROVIDERS: ADMIT Internal Medicine; ATTEND Internal Medicine
DX: I48.91 Unspecified atrial fibrillation (principal); I11.0 Hypertensive heart disease with heart failure; I50.9 Heart failure, unspecified; J44.9 Chronic obstructive pulmonary disease, unspecified; E78.00 Pure hypercholesterolemia, unspecified; Z88.1 Allergy status to other antibiotic agents; Z79.82 Long term (current) use of aspirin; Z79.899 Other long term (current) drug therapy; Z79.01 Long term (current) use of anticoagulants; Z87.891 Personal history of nicotine dependence
CPT/HCPCS: 36415; 71046; 80048; 80053; 81001; 83735; 83880; 84484; 85025; 85610; 93005; 93306; 96372; 96374; 99285; A9270; G0378; J1644; J1650; J1940; 99284; J7620-GY

== ENCOUNTER 2019-09-25 16:26 | Emergency (ER) | payer MEDICARE, OTHER ==
[2019-09-25] MEDS ORDERED: Albuterol/Ipratropium 3.0-0.5 MG/3 ML Neb Soln NEB ONE (16:41)
[2019-09-25] MEDS ORDERED: methylPREDNISolone Sodium Succinate 125 MG/2 ML SDV IVPUSH ONE (16:41)
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
[2019-09-25 17:37] LABS: BLOOD UREA NITROGEN,BUN 23 mg/dL (7.0-18.0); CARBON DIOXIDE,CO2 27.9 mmol/L (21.0-32.0); CHLORIDE,CL 98 mmol/L (98-107); GLUCOSE RANDOM 112 mg/dL (74-106); POTASSIUM,K 4.8 mmol/L (3.5-5.1); SODIUM,NA 133 mmol/L (136-148)
--- NOTE | 2019-09-25 18:13 | CR ---
Indication: Cough. Shortness of breath. Technique: PA and lateral views suggest routine. Comparison: July 20, 2019 Findings: Multiple right-sided rib plates are identified. Heart is normal in size. The lungs are hyperinflated but clear. No infiltrate, pleural effusion, or pneumothorax is identified. Impression: Hyperinflation Dictated by Harleen Barillas MD @ Sep 25 2019 6:12PM Signed by Dr. Harleen Barillas @ Sep 25 2019 6:12PM
[2019-09-25 18:48] VITALS: BP 144/75; PULSE 84
== END 2019-09-25 18:49 | disposition home or self-care (01) ==
LOC: MW.ED 16:26
DX: J44.1 Chronic obstructive pulmonary disease with (acute) exacerbation (principal); I11.0 Hypertensive heart disease with heart failure; I50.9 Heart failure, unspecified; E78.00 Pure hypercholesterolemia, unspecified; Z87.891 Personal history of nicotine dependence; Z88.8 Allergy status to other drugs, medicaments and biological substances; Z79.82 Long term (current) use of aspirin; Z79.899 Other long term (current) drug therapy
CPT/HCPCS: 71046; 80053; 83880; 84484; 85025; 87070; 87205; 87804; 93005; 94640; 96374; 99285; J2930; 87186; J7620-GY

== ENCOUNTER 2020-03-16 10:22 | Observation (INO) | payer MEDICARE, OTHER ==
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
[2020-03-16] MEDS ORDERED: cefTRIAXone 1 GM in Sodium Chloride 0.9% 50 ML IV ONE (10:54)
[2020-03-16] MEDS ORDERED: Azithromycin 200 MG/5 ML Susp 15 ML Bottle PO ONE (10:55)
[2020-03-16] MEDS ORDERED: Azithromycin 250 MG Tab PO ONE (11:24)
--- NOTE | 2020-03-16 11:26 | CR ---
Chest: Portable view of the chest was obtained. Comparison: Prior chest x-ray of 09/25/19. Orthopedic hardware is seen affixing multiple previous right-sided rib fractures. Pleural thickening is stable within the right lateral costophrenic angle. Lungs show no acute parenchymal change. Heart size is normal. Tortuous thoracic aorta is seen. Impression: 1. Chronic findings as noted above. 2. Nothing acute is seen. Diagnostic code #2 This report was dictated in MDT
[2020-03-16] MEDS ORDERED: cefTRIAXone 1 GM in Premix Bag 1 BAG IV ONE (11:28)
[2020-03-16 12:00] LABS: BLOOD UREA NITROGEN,BUN 19 mg/dL (7.0-18.0); CARBON DIOXIDE,CO2 29.6 mmol/L (21.0-32.0); CHLORIDE,CL 98 mmol/L (98-107); GLUCOSE RANDOM 100 mg/dL (74-106); SODIUM,NA 133 mmol/L (136-148)
[2020-03-16] MEDS ORDERED: Sodium Chloride 0.9% 500 ML IV SCH (12:30)
[2020-03-16] MEDS ORDERED: Ondansetron 4 MG/2 ML SDV IVPUSH PRN (12:59)
[2020-03-16] MEDS ORDERED: Acetaminophen 325 MG Tab PO PRN (12:59)
[2020-03-16] MEDS ORDERED: Sodium Chloride 0.9% 2.5 ML Syringe FLUSH PRN (12:59)
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
[2020-03-16] MEDS: Albuterol/Ipratropium 3.0-0.5 MG/3 ML Neb Soln NEB SCH ×3 (14:16→21:16)
[2020-03-16] MEDS: Gabapentin 300 MG Cap PO SCH ×2 (14:33→21:03)
[2020-03-16] MEDS: methylPREDNISolone Sodium Succinate 40 MG/1 ML SDV IVPUSH SCH (14:34)
[2020-03-16] MEDS ORDERED: Carvedilol 12.5 MG Tab PO SCH (21:00)
[2020-03-16] MEDS: Apixaban 2.5 MG Tab PO SCH (21:03)
[2020-03-16] MEDS: Metoprolol Tartrate 25 MG Tab PO SCH (21:04)
[2020-03-16] MEDS: Fluticasone/Salmeterol 250-50 MCG Inhalation Powder 14/Diskus INH SCH (21:16)
[2020-03-16] MEDS ORDERED: Diltiazem 25 MG/5 ML SDV IVPUSH ONE (22:49)
[2020-03-17] MEDS: Albuterol/Ipratropium 3.0-0.5 MG/3 ML Neb Soln NEB SCH ×3 (01:30→09:12)
[2020-03-17] MEDS: methylPREDNISolone Sodium Succinate 40 MG/1 ML SDV IVPUSH SCH (01:30)
[2020-03-17] MEDS: Metoprolol Tartrate 25 MG Tab PO SCH (05:18)
[2020-03-17] MEDS: Gabapentin 300 MG Cap PO SCH (05:19)
[2020-03-17 05:53] LABS: CARBON DIOXIDE,CO2 26.2 mmol/L (21.0-32.0); POTASSIUM,K 5.1 mmol/L (3.5-5.1)
[2020-03-17] MEDS ORDERED: Metoprolol Tartrate 5 MG/5 ML SDV IVPUSH ONE (08:19)
[2020-03-17] MEDS ORDERED: Folic Acid 1 MG Tab PO SCH (09:00)
[2020-03-17] MEDS ORDERED: SPIRIVA 18 MCG INH SCH (09:00)
[2020-03-17] MEDS ORDERED: Azithromycin 250 MG Tab PO SCH (09:00)
[2020-03-17] MEDS ORDERED: Aspirin 81 MG Tab.EC PO SCH (09:00)
[2020-03-17] MEDS ORDERED: atorvaSTATin 20 MG Tab PO SCH (09:00)
[2020-03-17] MEDS: Apixaban 2.5 MG Tab PO SCH (09:00)
[2020-03-17] MEDS: Fluticasone/Salmeterol 250-50 MCG Inhalation Powder 14/Diskus INH SCH (09:13)
[2020-03-17] MEDS ORDERED: Metoprolol Tartrate 25 MG Tab PO ONE (09:45)
--- NOTE | 2020-03-17 11:35 | PCM.DCSUM1 ---
Discharge Summary - Hospital Course Brief History: 70-year-old male with past medical history of hypertension A. fib with recent cardioversion in December, COPD, history of ESBL E. coli in urine is now s/p TURP presented to the ER today with complaints of shortness of breath, cough, and dyspnea on exertion. He reports at home he is usually only wearing oxygen when he is ambulating and now has been feeling more SOB, he has been wearing it on a continuous basis. He reports 2 to 3 days ago he started feeling more short of breath with congested type cough. He been using his flutter valve at home which typically helps loosen things up but has not been working successfully. He is also been using nebulizers more frequently than 4 times a day as he is prescribed. He also takes Spiriva and Advair for his longstanding COPD. He denies any fevers chills or headache. No body aches chest pain or palpitations. He does report that he has been feeling more dizzy at home and has noted a drop in blood pressure intermittently as well. I spoke to his , Nunu, who reports he has cut back his Coreg to 6.25 twice a day instead of 12.5 mg twice a day. He was previously on amiodarone for [facility] but in December was taken off of this after his cardioversion. He returned to [facility] after 2 days post cardioversion. He denies recent travel, his and him been home from [place] in [place] for 6 weeks. Neither of them have been sick. He was hospitalized at the beginning of January due to RSV for 4 days, has improved since then has been wearing oxygen intermittently at home with activity. 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 In the ER laboratory studies were noted to be near normal with insignificant abnormalities. CKD noted but is at baseline troponin negative chest x-ray reports no acute infiltrate or opacities, chronic COPD changes noted. He was noted to be satting 95% on 2 L, heart rate slightly elevated at 138 A. fib. Blood pressure noted to be 85-95 systolically he was given a 500 ml normal saline bolus. Blood pressure when he arrived to the floor was 100/74. He was given a Azithromycin and Rocephin in the ER for suspected acute bronchitis with COPD exacerbation. He will be admitted observation for acute COPD exacerbation with bronchitis. PCP, Dr Arias Diagnosis: Stroke: No - Discharge Data Discharge Date: 03/17/20 Discharge Disposition: Home, Self-Care 01 Condition: Stable - Referral to Home Health Primary Care Physician: Antonio Arias MD - Discharge Diagnosis/Problem(s) (1) COPD exacerbation SNOMED Code(s): 687286177 ICD Code: J44.1 - CHRONIC OBSTRUCTIVE PULMONARY DISEASE W (ACUTE) EXACERBATION Status: Acute Current Visit: Yes (2) Atrial fibrillation SNOMED Code(s): 41544847 ICD Code: I48.91 - UNSPECIFIED ATRIAL FIBRILLATION Status: Acute Priority : High Current Visit: No Problem Details: New-onset Qualifiers: Atrial fibrillation type: unspecified Qualified Code(s): I48.91 - Unspecified atrial fibrillation (3) BPH (benign prostatic hyperplasia) SNOMED Code(s): 201709624 ICD Code: N40.0 - BENIGN PROSTATIC HYPERPLASIA WITHOUT LOWER URINRY TRACT SYMP Status: Acute Current Visit: No (4) Bronchitis SNOMED Code(s): 75034252 ICD Code: J40 - BRONCHITIS, NOT SPECIFIED ACUTE OR CHRONIC Status: Acute Current Visit: No (5) CKD (chronic kidney disease) stage 4, GFR 15-29 ml/min SNOMED Code(s): 413156196 ICD Code: N18.4 - CHRONIC KIDNEY DISEASE, STAGE 4 (SEVERE) Status: Acute Current Visit: No - Patient Summary/Data Hospital Course: Admitting Diagnoses: COPD exacerbation Acute bronchitis Discharge Diagnoses: COPD exacerbation Acute bronchitis Other PMH: ESBL E coli UTI/bacteremia Afib Sujit was admitted secondary to acute COPD exacerbation, he was treated with Solumedrol and Azithromycin. It was noted on admission, BP low 85/65, given some fluids. His Losaratan and Lasix held. HR was also elevated in 120s consistently. I discussed this with Dr Major, he recommended stopping the Coreg and transition to Metoprolol. He felt that if that didn't help HR he may need to restart Amiodarone. Today Sujit is feeling much improved and is adamant on discharge. HR is 110s, Will keep him on Metoprolol 50 mg BID for now. Follow up with PCP and Dr Major. He is to monitor BP and HR at home. He will hold Losartan for now and discussed adding that back with PCP. He will be kept on Prednisone for a taper as well as Doxycyline for 5 more days. He is to return to the ED or clinic if concerns shoul arise. - Patient Instructions Diet: Heart Healthy Diet Activity: As Tolerated Showering/Bathing: May Shower Notify Provider of: Fever, Increased Pain, Swelling and Redness, Drainage, Nausea and/or Vomiting - Discharge Plan *PRESCRIPTION DRUG MONITORING PROGRAM REVIEWED*: Not Applicable *COPY OF PRESCRIPTION DRUG MONITORING REPORT IN PATIENT JENNIE: Not Applicable Prescriptions/Med Rec: Doxycycline [Vibramycin] 100 mg PO BID #10 cap Metoprolol Tartrate [Lopressor] 50 mg PO BID #60 tablet predniSONE 10 mg PO .TAPER #30 tab Home Medications: Home Meds Fluticasone/Salmeterol [Advair Diskus 250-50] 1 puff INH BID 04/21/17 [History] Aspirin [Ecotrin EC] 81 mg PO DAILY 05/04/17 [History] Albuterol Sulfate 2.5 mg NEB Q4HR PRN 06/18/17 [History] atorvaSTATin [Lipitor] 20 mg PO DAILY 11/24/17 [History] Gabapentin [Neurontin] 600 mg PO TID 03/17/18 [History] Folic Acid 1 mg PO DAILY 08/21/18 [History] Furosemide [Lasix] 20 mg PO DAILY 07/20/19 [History] Potassium Chloride [Klor-Con M20] 20 meq PO DAILY 07/20/19 [History] Apixaban [Eliquis] 5 mg PO BID 09/25/19 [History] Doxycycline [Vibramycin] 100 mg PO BID #10 cap 03/17/20 [Rx] Losartan [Cozaar] 12.5 mg PO DAILY #0 03/17/20 [Rx] Metoprolol Tartrate [Lopressor] 50 mg PO BID #60 tablet 03/17/20 [Rx] predniSONE 10 mg PO .TAPER #30 tab 03/17/20 [Rx] Oxygen Therapy Mode: Nasal Cannula Oxygen Flow Rate (L/min): 2 Patient Handouts: Metoprolol tablets, Chronic Obstructive Pulmonary Disease, [id number], Doxycycline tablets or capsules, Prednisone tablets Referrals: [facility] [Outside] Rick Major MD [Physician] - 04/03/20 3:30 pm Antonio Arias MD [Primary Care Provider] - 03/24/20 10:15 am (Arrive 15 minutes early with a photo ID and insurance card. If you are not early, they will not see you. ) - Discharge Summary/Plan Comment DC Time >30 min.: No - Patient Data Vitals - Most Recent: Last Vital Signs Temp 97.7 F 03/17/20 07:20 Pulse 129 H 03/17/20 10:16 Resp 18 03/17/20 10:13 BP 114/78 03/17/20 10:16 Pulse Ox 96 03/17/20 10:13 Weight - Most Recent: 92.986 kg I&O - Last 24 hours: Intake & Output 03/16/20 03/17/20 03/17/20 22:59 06:59 14:59 Intake Total 340 1830 Output Total 900 Balance 340 930 Lab Results - Last 24 hrs: Laboratory Results - last 24 hr 03/16/20 03/17/20 03/17/20 Range/Units 11:19 05:30 05:30 WBC 6.66 (4.0-11.0) K/uL RBC 4.41 L (4.50-5.90) M/uL Hgb 11.0 L (13.0-17.0) g/dL Hct 35.8 L (38.0-50.0) % MCV 81.2 (80.0-98.0) fL MCH 24.9 L (27.0-32.0) pg MCHC 30.7 L (31.0-37.0) g/dL RDW Std Deviation 45.8 (28.0-62.0) fl RDW Coeff of Jeannie 15 (11.0-15.0) % Plt Count 252 (150-400) K/uL MPV 10.10 (7.40-12.00) fL Neut % (Auto) 90.3 H (48.0-80.0) % Lymph % (Auto) 7.8 L (16.0-40.0) % [place] % (Auto) 1.7 (0.0-15.0) % Eos % (Auto) 0.0 (0.0-7.0) % Baso % (Auto) 0.2 (0.0-1.5) % Neut # (Auto) 6.0 H (1.4-5.7) K/uL Lymph # (Auto) 0.5 L (0.6-2.4) K/uL [place] # (Auto) 0.1 (0.0-0.8) K/uL Eos # (Auto) 0.0 (0.0-0.7) K/uL Baso # (Auto) 0.0 (0.0-0.1) K/uL Nucleated RBC % 0.0 /100WBC Nucleated RBCs # 0 K/uL Sodium 133 L 131 L (136-148) mmol/L Potassium 5.0 5.1 (3.5-5.1) mmol/L Chloride 98 96 L (98-107) mmol/L Carbon Dioxide 29.6 26.2 (21.0-32.0) mmol/L BUN 19 H 22 H (7.0-18.0) mg/dL Creatinine 2.0 H 1.9 H (0.8-1.3) mg/dL Est Cr Clr Drug Dosing 35.56 37.43 mL/min Estimated GFR (MDRD) 33.0 35.0 ml/min Glucose 100 146 H (74-106) mg/dL Calcium 8.7 8.6 (8.5-10.1) mg/dL Total Bilirubin 0.5 (0.2-1.0) mg/dL AST 21 (15-37) IU/L ALT 21 (14-63) IU/L Alkaline Phosphatase 139 H (46-116) U/L Troponin I < 0.050 (0.000-0.056) ng/mL Total Protein 7.4 (6.4-8.2) g/dL Albumin 3.4 (3.4-5.0) g/dL Globulin 4.0 (2.6-4.0) g/dL Albumin/Globulin Ratio 0.9 (0.9-1.6) Med Orders - Current: Current Medications Acetaminophen (Tylenol) 650 mg PO Q4H PRN PRN Reason: Pain (Mild 1-3)/fever Albuterol/Ipratropium (Duoneb 3.0-0.5 Mg/3 Ml) 3 ml NEB Q4HRRT [facility] Last Admin: 03/17/20 09:12 Dose: 3 ml Apixaban (Eliquis) 5 mg PO BID [facility] Last Admin: 03/17/20 09:00 Dose: 5 mg Aspirin (Halfprin) 81 mg PO DAILY [facility] Last Admin: 03/17/20 08:59 Dose: 81 mg Atorvastatin Calcium (Lipitor) 20 mg PO DAILY [facility] Last Admin: 03/17/20 08:59 Dose: 20 mg Azithromycin (Zithromax) 500 mg PO Q24H [facility] Last Admin: 03/17/20 08:59 Dose: 500 mg Folic Acid (Folic Acid) 1 mg PO DAILY [facility] Last Admin: 03/17/20 09:00 Dose: 1 mg Gabapentin (Neurontin) 600 mg PO TID [facility] Last Admin: 03/17/20 05:19 Dose: 600 mg Sodium Chloride (Normal Saline) 500 mls @ 500 mls/hr IV .BOLUS [facility] Last Admin: 03/16/20 13:31 Dose: 500 mls/hr Methylprednisolone Sodium Succinate (Solu-Medrol) 40 mg IVPUSH Q12H [facility] Last Admin: 03/17/20 01:30 Dose: 40 mg Ondansetron HCl (Zofran) 4 mg IVPUSH Q4H PRN PRN Reason: Nausea Spiriva (Tiotropium) (18mcg) 0 each INH DAILY [facility] Last Admin: 03/17/20 09:12 Dose: 1 each Fluticasone/Salmeterol (Advair Diskus 250-50) 1 puff INH BID [facility] Last Admin: 03/17/20 09:13 Dose: 1 inhalation Sodium Chloride (Saline Flush) 2.5 ml FLUSH ASDIRECTED PRN PRN Reason: Keep Vein Open Discontinued Medications Azithromycin (Zithromax 200 Mg/5 Ml Susp) 500 mg PO ONETIME ONE Stop: 03/16/20 10:56 Last Admin: 03/16/20 11:39 Dose: Not Given Azithromycin (Zithromax) 500 mg PO STAT ONE Stop: 03/16/20 11:25 Last Admin: 03/16/20 11:37 Dose: 500 mg Carvedilol (Coreg) 12.5 mg PO BID [facility] Diltiazem HCl (Diltiazem) 20 mg IVPUSH ONETIME ONE Stop: 03/16/20 22:50 Last Admin: 03/16/20 23:05 Dose: 20 mg Ceftriaxone Sodium 1 gm/ (Sodium Chloride) 50 mls @ 200 mls/hr IV ONETIME ONE Stop: 03/16/20 11:08 Last Admin: 03/16/20 11:39 Dose: Not Given Ceftriaxone Sodium/Dextrose 1 (gm/ Premix) 50 mls @ 100 mls/hr IV ONETIME ONE Stop: 03/16/20 11:57 Last Admin: 03/16/20 11:37 Dose: 100 mls/hr Metoprolol Tartrate (Lopressor) 25 mg PO Q8H JOSE Last Admin: 03/17/20 05:18 Dose: 25 mg Metoprolol Tartrate (Lopressor) 5 mg IVPUSH ONETIME ONE Stop: 03/17/20 08:20 Last Admin: 03/17/20 09:03 Dose: 5 mg Metoprolol Tartrate (Lopressor) 25 mg PO ONETIME ONE Stop: 03/17/20 09:46 Last Admin: 03/17/20 10:16 Dose: 25 mg - Exam General: Reports: Alert, Oriented, Cooperative, No Acute Distress Lungs: Reports: Normal Respiratory Effort, Rhonchi (bibasilar, improved) Cardiovascular: Reports: Irregular Rhythm, Tachycardia GI/Abdominal Exam: Normal Bowel Sounds, Soft, Non-Tender Extremities: Normal Inspection, Normal Range of Motion, Non-Tender, No Pedal Edema Neurological: Reports: No New Focal Deficit Psy/Mental Status: Reports: Alert, Normal Affect, Normal Mood
[2020-03-17 16:31] VITALS: BP 108/75; PULSE 127
== END 2020-03-17 11:45 | disposition home or self-care (01) ==
LOC: MW.ED 10:22 → MW.MS 12:28
PROVIDERS: ADMIT Student in an Organized Health Care Education/Training Program; ATTEND Student in an Organized Health Care Education/Training Program
DX: J44.1 Chronic obstructive pulmonary disease with (acute) exacerbation (principal); J44.0 Chronic obstructive pulmonary disease with (acute) lower respiratory infection; J20.9 Acute bronchitis, unspecified; I48.91 Unspecified atrial fibrillation; I12.9 Hypertensive chronic kidney disease with stage 1 through stage 4 chronic kidney disease, or unspecified chronic kidney disease; N40.0 Benign prostatic hyperplasia without lower urinary tract symptoms; I95.9 Hypotension, unspecified; N18.4 Chronic kidney disease, stage 4 (severe); Z79.82 Long term (current) use of aspirin; Z79.899 Other long term (current) drug therapy; Z88.8 Allergy status to other drugs, medicaments and biological substances; Z87.891 Personal history of nicotine dependence
CPT/HCPCS: 36415; 71045; 71045-26; 80048; 80053; 84484; 85025; 93005; 94640; 96365; 96375; 96376; 99284; 99285-25; A9270-GY; G0378; J0696; J2920; J3490; J7040; J7620-GY

== ENCOUNTER 2020-08-10 17:24 | Inpatient (IN) | payer MEDICARE, OTHER ==
[2020-08-10] MEDS ORDERED: Sodium Chloride 0.9% 10 ML Syringe FLUSH PRN (17:33)
[2020-08-10] MEDS ORDERED: Sodium Chloride 0.9% 2.5 ML Syringe FLUSH PRN (17:33)
[2020-08-10] MEDS ORDERED: methylPREDNISolone Sodium Succinate 125 MG/2 ML SDV IVPUSH ONE (17:39)
[2020-08-10] MEDS ORDERED: Albuterol/Ipratropium 3.0-0.5 MG/3 ML Neb Soln NEB ONE (17:39)
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
[2020-08-10] MEDS: Sodium Chloride 0.9% 500 ML IV SCH ×2 (17:50→18:02)
--- NOTE | 2020-08-10 18:06 | CR ---
Emilie portable view of the chest was obtained. Comparison: Prior chest x-ray of 09/25/19. Heart size within normal limits for portable technique. Multiple orthopedic plates are seen within the right ribs. Mild pleural thickening which is chronic is noted within the right lateral costophrenic angle. No acute parenchymal change is seen. No acute osseous finding is appreciated. Impression: 1. Nothing acute is seen on portable chest x-ray. Diagnostic code #2 This report was dictated in MDT
[2020-08-10 18:15] LABS: BLOOD UREA NITROGEN,BUN 52 mg/dL (7.0-18.0); CARBON DIOXIDE,CO2 28.7 mmol/L (21.0-32.0); CHLORIDE,CL 106 mmol/L (98-107); GLUCOSE RANDOM 103 mg/dL (74-106); POTASSIUM,K 4.7 mmol/L (3.5-5.1); SODIUM,NA 142 mmol/L (136-148)
[2020-08-10] MEDS ORDERED: Cefepime 2 GM in Premix Bag 1 BAG IV ONE (18:32)
[2020-08-10] MEDS ORDERED: Sodium Chloride 0.9% 1,000 ML IV SCH (20:15)
[2020-08-10] MEDS ORDERED: Pantoprazole 40 MG in Sodium Chloride 0.9% 10 ML IV ONE (23:45)
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
[2020-08-11 08:24] LABS: CARBON DIOXIDE,CO2 26.1 mmol/L (21.0-32.0); POTASSIUM,K 4.5 mmol/L (3.5-5.1)
[2020-08-11] MEDS: Pantoprazole 40 MG in Sodium Chloride 0.9% 10 ML IV SCH ×2 (09:13→21:25)
[2020-08-11] MEDS: Albuterol/Ipratropium 3.0-0.5 MG/3 ML Neb Soln NEB PRN (09:36)
[2020-08-11] MEDS: Tiotropium Inhaler 18 MCG Inhalation Powder Cap Kit of 5 INH SCH (09:56)
[2020-08-11] MEDS: Fluticasone/Salmeterol 250-50 MCG Inhalation Powder 14/Diskus INH SCH ×2 (10:00→22:12)
--- NOTE | 2020-08-11 10:47 | CT ---
CT abdomen and pelvis Technique: Multiple axial sections were obtained from above the dome of the diaphragm inferiorly through the pubic symphysis. Intravenous and oral contrast not utilized. Reconstructed coronal and sagittal images were obtained. Comparison: No prior CT abdomen or pelvis study is available. Findings: Slight parenchymal density is noted within the right lung base as well as pleural thickening most likely representing scarring. Noncontrast appearance of the liver and spleen shows no discrete abnormality. Pancreas shows no discrete abnormality. Gallbladder contains no calcified gallstones. Adrenal glands show no nodule. Kidneys show no hydronephrosis. Small cyst noted within the left kidney measuring 1.9 cm. Right and left ureters are slightly prominent but no renal calculi are seen findings likely residual from an element of bladder outlet obstruction. Bladder shows no abnormal calcifications. Aorta shows diffuse atherosclerotic calcification with no retroperitoneal adenopathy or mesenteric abnormalities are seen. No pelvic mass nor adenopathy is appreciated. Appendix is believed to be visualized and is normal in size. Severe compression deformity is noted of L2 which most likely is old. Mild compression deformities are noted within T11 and L1 which shows no acute fracture lines and are likely old. Degenerative change is noted within the spine. No acute osseous finding is appreciated. Impression: 1. Multiple findings as noted above. 2. Nothing acute is appreciated on CT study of the abdomen and pelvis performed without IV or oral contrast. Diagnostic code #2 This report was dictated in MDT
--- NOTE | 2020-08-11 10:50 | CT ---
CT chest Technique: Multiple axial sections through the chest were obtained. Intravenous contrast not utilized. Comparison: No prior chest CT is available, prior chest x-ray of 08/10/20 is available. Findings: Pleural thickening is noted within the right lung base with parenchymal scarring which is most likely chronic. Lungs show no definite acute parenchymal change. Mediastinum shows atherosclerotic calcification within the thoracic aorta and branch vessels without aneurysm. Small mediastinal lymph nodes are seen believed to be within normal limits. Coronary artery calcification is noted. Heart is slightly enlarged. No pericardial thickening is seen. Bone window settings were reviewed which shows multiple old right-sided rib fractures with orthopedic hardware in place. Compression deformities are noted within T11 and L1 which are most likely old. Scattered endplate spurring is noted within the spine. Impression: 1. Parenchymal scarring and pleural thickening within the right lung base most likely chronic. 2. Other findings as noted above. 3. Nothing acute is appreciated on noncontrast CT study of the chest. Diagnostic code #2 This report was dictated in MDT
--- NOTE | 2020-08-11 10:53 | CT ---
Head CT Technique: Multiple axial sections through the brain were obtained. Intravenous contrast not utilized. Comparison: No prior intracranial imaging is available. Findings: Ventricles along with basal cisterns and sulci over the convexities are moderately prominent. No abnormal parenchymal densities are seen. No evidence of intracranial hemorrhage. No midline shift or mass-effect is appreciated. Bone window settings were reviewed. Mild mucosal thickening is seen within the right frontal sinus as well as within both ethmoid sinuses and sphenoid sinus. Near complete opacification of the left maxillary sinus is noted with moderate mucosal thickening of the right maxillary sinus. No acute calvarial finding is seen. Impression: 1. Paranasal sinus findings most likely due to chronic sinusitis. 2. Generalized atrophy. 3. No acute intracranial abnormality is appreciated. Diagnostic code #3 This report was dictated in MDT
--- NOTE | 2020-08-11 10:59 | PCM.PN ---
- General Info Date of Service: 08/11/20 Subjective Update: Bedside: no acute complaints; mentiosn recent history of increasing falls and SOB; unsure why. After rounds pt. mentioned to nursing seeing some animals while closing his eyes - Review of Systems General: Reports: Fatigue. Denies: Fever HEENT: Reports: No Symptoms Pulmonary: Reports: Shortness of Breath. Denies: Cough, Sputum Cardiovascular: Reports: No Symptoms Gastrointestinal: Denies: No Symptoms Genitourinary: Denies: No Symptoms Musculoskeletal: Denies: No Symptoms Neurological: Denies: No Symptoms - Patient Data Vitals - Most Recent: Last Vital Signs Temp 98.4 F 08/11/20 07:44 Pulse 98 08/11/20 07:44 Resp 16 08/11/20 07:44 BP 145/85 H 08/11/20 07:44 Pulse Ox 97 08/11/20 07:35 Weight - Most Recent: 99 kg I&O - Last 24 Hours: Intake & Output 08/10/20 08/11/20 08/11/20 22:59 06:59 14:59 Intake Total 2073 Output Total 300 Balance 1773 Lab Results Last 24 Hours: Laboratory Results - last 24 hr 08/10/20 08/10/20 08/10/20 Range/Units 17:45 17:45 17:45 WBC 19.32 H (4.0-11.0) K/uL RBC 2.84 L (4.50-5.90) M/uL Hgb 5.8 L (13.0-17.0) g/dL Hct 20.2 L (38.0-50.0) % MCV 71.1 L (80.0-98.0) fL MCH 20.4 L (27.0-32.0) pg MCHC 28.7 L (31.0-37.0) g/dL RDW Std Deviation 50.1 (28.0-62.0) fl RDW Coeff of Jeannie 19 H (11.0-15.0) % Plt Count 153 (150-400) K/uL MPV (7.40-12.00) fL Neut % (Auto) 82.1 H (48.0-80.0) % Lymph % (Auto) 6.1 L (16.0-40.0) % [place] % (Auto) 10.0 (0.0-15.0) % Eos % (Auto) 1.6 (0.0-7.0) % Baso % (Auto) 0.2 (0.0-1.5) % Neut # (Auto) 15.9 H (1.4-5.7) K/uL Lymph # (Auto) 1.2 (0.6-2.4) K/uL [place] # (Auto) 1.9 H (0.0-0.8) K/uL Eos # (Auto) 0.3 (0.0-0.7) K/uL Baso # (Auto) 0.0 (0.0-0.1) K/uL Add Manual Diff Neutrophils % (Manual) (48.0-80.0) % Band Neutrophils % % Lymphocytes % (Manual) (16.0-40.0) % Monocytes % (Manual) (0.0-15.0) % Nucleated RBC % 0.2 /100WBC Absolute Seg Neuts (1.4-5.7) Band Neutrophils # Lymphocytes # (Manual) (0.6-2.4) Monocytes # (Manual) (0.0-0.8) Nucleated RBCs # 0 K/uL Giant Platelets Poikilocytosis Absolute Retic (20-80) K/uL Percent Retic (0.5-1.5) % Immature Retic Fraction % Lactate 1.4 (0.20-2.00) mmol/L Sodium 142 (136-148) mmol/L Potassium 4.7 (3.5-5.1) mmol/L Chloride 106 (98-107) mmol/L Carbon Dioxide 28.7 (21.0-32.0) mmol/L BUN 52 H (7.0-18.0) mg/dL Creatinine 2.8 H (0.8-1.3) mg/dL Est Cr Clr Drug Dosing 26.17 mL/min Estimated GFR (MDRD) 22.4 ml/min Glucose 103 (74-106) mg/dL Calcium 8.1 L (8.5-10.1) mg/dL Magnesium 2.3 (1.8-2.4) mg/dL Iron (50-175) ug/dL TIBC (250-450) ug/dL % Saturation (20-55) % Transferrin Ferritin (26-388) ng/mL Total Bilirubin 0.4 (0.2-1.0) mg/dL AST 27 (15-37) IU/L ALT 37 (14-63) IU/L Alkaline Phosphatase 199 H (46-116) U/L Troponin I < 0.050 (0.000-0.056) ng/mL B-Natriuretic Peptide (<100) PG/ML Total Protein 6.5 (6.4-8.2) g/dL Albumin 2.6 L (3.4-5.0) g/dL Globulin 3.9 (2.6-4.0) g/dL Albumin/Globulin Ratio 0.7 L (0.9-1.6) Urine Color Urine Appearance Urine pH (5.0-8.0) Ur Specific [place] (1.001-1.035) Urine Protein (NEGATIVE) mg/dL Urine Glucose (UA) (NEGATIVE) mg/dL Urine Ketones (NEGATIVE) mg/dL Urine Occult Blood (NEGATIVE) Urine Nitrite (NEGATIVE) Urine Bilirubin (NEGATIVE) Urine Urobilinogen (<2.0) EU/dL Ur Leukocyte Esterase (NEGATIVE) U Hyaline Cast (Auto) (0-2/LPF) Urine RBC (0-2/HPF) Urine WBC (0-5/HPF) Ur Epithelial Cells (NONE-FEW) Urine Bacteria (NEGATIVE) Urine Mucus (NONE-MOD) SARS Virus RNA (PCR) (NEGATIVE) Blood Type Antibody Screen Crossmatch 08/10/20 08/10/20 08/10/20 Range/Units 17:45 18:50 20:33 WBC (4.0-11.0) K/uL RBC (4.50-5.90) M/uL Hgb (13.0-17.0) g/dL Hct (38.0-50.0) % MCV (80.0-98.0) fL MCH (27.0-32.0) pg MCHC (31.0-37.0) g/dL RDW Std Deviation (28.0-62.0) fl RDW Coeff of Jeannie (11.0-15.0) % Plt Count (150-400) K/uL MPV (7.40-12.00) fL Neut % (Auto) (48.0-80.0) % Lymph % (Auto) (16.0-40.0) % [place] % (Auto) (0.0-15.0) % Eos % (Auto) (0.0-7.0) % Baso % (Auto) (0.0-1.5) % Neut # (Auto) (1.4-5.7) K/uL Lymph # (Auto) (0.6-2.4) K/uL [place] # (Auto) (0.0-0.8) K/uL Eos # (Auto) (0.0-0.7) K/uL Baso # (Auto) (0.0-0.1) K/uL Add Manual Diff Neutrophils % (Manual) (48.0-80.0) % Band Neutrophils % % Lymphocytes % (Manual) (16.0-40.0) % Monocytes % (Manual) (0.0-15.0) % Nucleated RBC % /100WBC Absolute Seg Neuts (1.4-5.7) Band Neutrophils # Lymphocytes # (Manual) (0.6-2.4) Monocytes # (Manual) (0.0-0.8) Nucleated RBCs # K/uL Giant Platelets Poikilocytosis Absolute Retic (20-80) K/uL Percent Retic (0.5-1.5) % Immature Retic Fraction % Lactate (0.20-2.00) mmol/L Sodium (136-148) mmol/L Potassium (3.5-5.1) mmol/L Chloride (98-107) mmol/L Carbon Dioxide (21.0-32.0) mmol/L BUN (7.0-18.0) mg/dL Creatinine (0.8-1.3) mg/dL Est Cr Clr Drug Dosing mL/min Estimated GFR (MDRD) ml/min Glucose (74-106) mg/dL Calcium (8.5-10.1) mg/dL Magnesium (1.8-2.4) mg/dL Iron (50-175) ug/dL TIBC (250-450) ug/dL % Saturation (20-55) % Transferrin Ferritin (26-388) ng/mL Total Bilirubin (0.2-1.0) mg/dL AST (15-37) IU/L ALT (14-63) IU/L Alkaline Phosphatase (46-116) U/L Troponin I (0.000-0.056) ng/mL B-Natriuretic Peptide 364 H (<100) PG/ML Total Protein (6.4-8.2) g/dL Albumin (3.4-5.0) g/dL Globulin (2.6-4.0) g/dL Albumin/Globulin Ratio (0.9-1.6) Urine Color YELLOW Urine Appearance HAZY Urine pH 5.5 (5.0-8.0) Ur Specific [place] 1.020 (1.001-1.035) Urine Protein NEGATIVE (NEGATIVE) mg/dL Urine Glucose (UA) NEGATIVE (NEGATIVE) mg/dL Urine Ketones NEGATIVE (NEGATIVE) mg/dL Urine Occult Blood MODERATE H (NEGATIVE) Urine Nitrite NEGATIVE (NEGATIVE) Urine Bilirubin NEGATIVE (NEGATIVE) Urine Urobilinogen 0.2 (<2.0) EU/dL Ur Leukocyte Esterase NEGATIVE (NEGATIVE) U Hyaline Cast (Auto) 0-1 (0-2/LPF) Urine RBC 2-5 (0-2/HPF) Urine WBC 0-1 (0-5/HPF) Ur Epithelial Cells RARE (NONE-FEW) Urine Bacteria RARE (NEGATIVE) Urine Mucus LIGHT (NONE-MOD) SARS Virus RNA (PCR) NEGATIVE (NEGATIVE) Blood Type Antibody Screen Crossmatch 08/10/20 08/11/20 08/11/20 Range/Units 21:35 00:02 00:02 WBC (4.0-11.0) K/uL RBC 3.00 L (4.50-5.90) M/uL Hgb (13.0-17.0) g/dL Hct (38.0-50.0) % MCV (80.0-98.0) fL MCH (27.0-32.0) pg MCHC (31.0-37.0) g/dL RDW Std Deviation (28.0-62.0) fl RDW Coeff of Jeannie (11.0-15.0) % Plt Count (150-400) K/uL MPV (7.40-12.00) fL Neut % (Auto) (48.0-80.0) % Lymph % (Auto) (16.0-40.0) % [place] % (Auto) (0.0-15.0) % Eos % (Auto) (0.0-7.0) % Baso % (Auto) (0.0-1.5) % Neut # (Auto) (1.4-5.7) K/uL Lymph # (Auto) (0.6-2.4) K/uL [place] # (Auto) (0.0-0.8) K/uL Eos # (Auto) (0.0-0.7) K/uL Baso # (Auto) (0.0-0.1) K/uL Add Manual Diff Neutrophils % (Manual) (48.0-80.0) % Band Neutrophils % % Lymphocytes % (Manual) (16.0-40.0) % Monocytes % (Manual) (0.0-15.0) % Nucleated RBC % /100WBC Absolute Seg Neuts (1.4-5.7) Band Neutrophils # Lymphocytes # (Manual) (0.6-2.4) Monocytes # (Manual) (0.0-0.8) Nucleated RBCs # K/uL Giant Platelets Poikilocytosis Absolute Retic 85.80 H (20-80) K/uL Percent Retic 2.9 H (0.5-1.5) % Immature Retic Fraction 23 % Lactate (0.20-2.00) mmol/L Sodium (136-148) mmol/L Potassium (3.5-5.1) mmol/L Chloride (98-107) mmol/L Carbon Dioxide (21.0-32.0) mmol/L BUN (7.0-18.0) mg/dL Creatinine (0.8-1.3) mg/dL Est Cr Clr Drug Dosing mL/min Estimated GFR (MDRD) ml/min Glucose (74-106) mg/dL Calcium (8.5-10.1) mg/dL Magnesium (1.8-2.4) mg/dL Iron 13 L (50-175) ug/dL TIBC 388 (250-450) ug/dL % Saturation 3.35 L (20-55) % Transferrin 271.6 Ferritin 15 L (26-388) ng/mL Total Bilirubin (0.2-1.0) mg/dL AST (15-37) IU/L ALT (14-63) IU/L Alkaline Phosphatase (46-116) U/L Troponin I (0.000-0.056) ng/mL B-Natriuretic Peptide (<100) PG/ML Total Protein (6.4-8.2) g/dL Albumin (3.4-5.0) g/dL Globulin (2.6-4.0) g/dL Albumin/Globulin Ratio (0.9-1.6) Urine Color Urine Appearance Urine pH (5.0-8.0) Ur Specific [place] (1.001-1.035) Urine Protein (NEGATIVE) mg/dL Urine Glucose (UA) (NEGATIVE) mg/dL Urine Ketones (NEGATIVE) mg/dL Urine Occult Blood (NEGATIVE) Urine Nitrite (NEGATIVE) Urine Bilirubin (NEGATIVE) Urine Urobilinogen (<2.0) EU/dL Ur Leukocyte Esterase (NEGATIVE) U Hyaline Cast (Auto) (0-2/LPF) Urine RBC (0-2/HPF) Urine WBC (0-5/HPF) Ur Epithelial Cells (NONE-FEW) Urine Bacteria (NEGATIVE) Urine Mucus (NONE-MOD) SARS Virus RNA (PCR) (NEGATIVE) Blood Type A POSITIVE Antibody Screen NEGATIVE Crossmatch See Detail 08/11/20 08/11/20 Range/Units 07:56 07:56 WBC 19.22 H (4.0-11.0) K/uL RBC 3.55 L (4.50-5.90) M/uL Hgb 7.8 L (13.0-17.0) g/dL Hct 26.0 L (38.0-50.0) % MCV 73.2 L (80.0-98.0) fL MCH 22.0 L (27.0-32.0) pg MCHC 30.0 L (31.0-37.0) g/dL RDW Std Deviation 52.8 (28.0-62.0) fl RDW Coeff of Jeannie 20 H (11.0-15.0) % Plt Count 116 L (150-400) K/uL MPV (7.40-12.00) fL Neut % (Auto) (48.0-80.0) % Lymph % (Auto) (16.0-40.0) % [place] % (Auto) (0.0-15.0) % Eos % (Auto) (0.0-7.0) % Baso % (Auto) (0.0-1.5) % Neut # (Auto) (1.4-5.7) K/uL Lymph # (Auto) (0.6-2.4) K/uL [place] # (Auto) (0.0-0.8) K/uL Eos # (Auto) (0.0-0.7) K/uL Baso # (Auto) (0.0-0.1) K/uL Add Manual Diff YES Neutrophils % (Manual) 95 H (48.0-80.0) % Band Neutrophils % 1 % Lymphocytes % (Manual) 2 L (16.0-40.0) % Monocytes % (Manual) 2 (0.0-15.0) % Nucleated RBC % 0.2 /100WBC Absolute Seg Neuts 18.3 H (1.4-5.7) Band Neutrophils # 0.2 Lymphocytes # (Manual) 0.4 L (0.6-2.4) Monocytes # (Manual) 0.4 (0.0-0.8) Nucleated RBCs # 0 K/uL Giant Platelets RARE Poikilocytosis 3+ MARKED Absolute Retic (20-80) K/uL Percent Retic (0.5-1.5) % Immature Retic Fraction % Lactate (0.20-2.00) mmol/L Sodium 139 (136-148) mmol/L Potassium 4.5 (3.5-5.1) mmol/L Chloride 105 (98-107) mmol/L Carbon Dioxide 26.1 (21.0-32.0) mmol/L BUN 46 H (7.0-18.0) mg/dL Creatinine 2.4 H (0.8-1.3) mg/dL Est Cr Clr Drug Dosing 30.54 mL/min Estimated GFR (MDRD) 26.7 ml/min Glucose 162 H (74-106) mg/dL Calcium 7.8 L (8.5-10.1) mg/dL Magnesium (1.8-2.4) mg/dL Iron (50-175) ug/dL TIBC (250-450) ug/dL % Saturation (20-55) % Transferrin Ferritin (26-388) ng/mL Total Bilirubin (0.2-1.0) mg/dL AST (15-37) IU/L ALT (14-63) IU/L Alkaline Phosphatase (46-116) U/L Troponin I (0.000-0.056) ng/mL B-Natriuretic Peptide (<100) PG/ML Total Protein (6.4-8.2) g/dL Albumin (3.4-5.0) g/dL Globulin (2.6-4.0) g/dL Albumin/Globulin Ratio (0.9-1.6) Urine Color Urine Appearance Urine pH (5.0-8.0) Ur Specific [place] (1.001-1.035) Urine Protein (NEGATIVE) mg/dL Urine Glucose (UA) (NEGATIVE) mg/dL Urine Ketones (NEGATIVE) mg/dL Urine Occult Blood (NEGATIVE) Urine Nitrite (NEGATIVE) Urine Bilirubin (NEGATIVE) Urine Urobilinogen (<2.0) EU/dL Ur Leukocyte Esterase (NEGATIVE) U Hyaline Cast (Auto) (0-2/LPF) Urine RBC (0-2/HPF) Urine WBC (0-5/HPF) Ur Epithelial Cells (NONE-FEW) Urine Bacteria (NEGATIVE) Urine Mucus (NONE-MOD) SARS Virus RNA (PCR) (NEGATIVE) Blood Type Antibody Screen Crossmatch [place] Results Last 24 Hours: Microbiology 08/10/20 18:54 Anaerobic Blood Culture - Final Blood - Venous - Lab Draw Med Orders - Current: Current Medications Albuterol/Ipratropium (Duoneb 3.0-0.5 Mg/3 Ml) 3 ml NEB Q4HRRT PRN PRN Reason: Wheezing Last Admin: 08/11/20 09:36 Dose: 3 ml Documented by: Pantoprazole Sodium 40 mg/ (Sodium Chloride) 10 mls @ 300 mls/hr IV Q12H [facility] [place] Last Admin: 08/11/20 09:13 Dose: 300 mls/hr Documented by: Fluticasone/Salmeterol (Advair Diskus 250-50) 1 puff INH BID [facility] [place] Last Admin: 08/11/20 10:00 Dose: 1 inhalation Documented by: Sodium Chloride (Saline Flush) 10 ml FLUSH ASDIRECTED PRN PRN Reason: Keep Vein Open Last Admin: 08/10/20 18:51 Dose: 10 ml Documented by: Sodium Chloride (Saline Flush) 2.5 ml FLUSH ASDIRECTED PRN PRN Reason: Keep Vein Open Last Admin: 08/10/20 18:50 Dose: 2.5 ml Documented by: Tiotropium Eugene (Spiriva Handihaler) 18 mcg INH DAILY [facility] [place] Last Admin: 08/11/20 09:56 Dose: 18 mcg Documented by: Discontinued Medications Albuterol/Ipratropium (Duoneb 3.0-0.5 Mg/3 Ml) 3 ml NEB ONETIME ONE Stop: 08/10/20 17:40 Last Admin: 08/10/20 18:02 Dose: 3 ml Documented by: Sodium Chloride (Normal Saline) 500 mls @ 999 mls/hr IV .BOLUS [facility] [place] Last Admin: 08/10/20 18:02 Dose: 999 mls/hr Documented by: Cefepime HCl 2 gm/ Premix 50 mls @ 100 mls/hr IV ONETIME ONE Stop: 08/10/20 19:01 Last Admin: 08/10/20 18:48 Dose: 100 mls/hr Documented by: Sodium Chloride (Normal Saline) 1,000 mls @ 125 mls/hr IV ASDIRECTED [facility] [place] Last Admin: 08/10/20 20:34 Dose: 500 mls/hr Documented by: Pantoprazole Sodium 40 mg/ (Sodium Chloride) 10 mls @ 300 mls/hr IV ONETIME ONE Stop: 08/10/20 23:46 Last Admin: 08/11/20 00:12 Dose: 300 mls/hr Documented by: Methylprednisolone Sodium Succinate (Solu-Medrol) 125 mg IVPUSH ONETIME ONE Stop: 08/10/20 17:40 Last Admin: 08/10/20 18:48 Dose: 125 mg Documented by: - Exam Quality Assessment: Supplemental Oxygen General: Alert, Oriented, Cooperative, No Acute Distress HEENT: EOMI, Mucous Membr. Moist/[place] Neck: Supple Lungs: Normal Respiratory Effort, Other (mild end expiratory wheezing; audible on ambualtion) Cardiovascular: Regular Rate, Regular Rhythm GI/Abdominal Exam: Soft, Non-Tender Extremities: Other (+1-2 l/e b/l pitting edema w. multiple excoriations noted ) Skin: Warm Wound/Incisions: Healing Well Neurological: Normal Speech, Other (Endorsed hallucionations post-rounds ; seeing animals while eyes are closed ) Psy/Mental Status: Alert Sepsis Event Note - Evaluation Sepsis Screening Result: No Definite Risk - Focused Exam Vital Signs: Vital Signs Temp Temp Pulse Resp BP Pulse Ox Pulse Ox 08/11/20 07:44 98.4 F 98 16 145/85 H 08/11/20 07:35 98.4 F 98 16 145/85 H 97 08/11/20 06:44 98.2 F 97 18 138/90 97 08/11/20 04:36 98.3 F 93 18 127/74 98 08/11/20 04:21 98.1 F 93 18 131/78 98 08/11/20 04:13 97.9 F 93 137/71 99 08/11/20 03:18 98.0 F 85 18 138/81 98 08/11/20 00:46 98.3 F 100 18 133/83 100 08/11/20 00:31 98.2 F 96 141/79 H 100 08/11/20 00:25 98.2 F 93 139/85 100 08/11/20 00:00 99 - Problem List Review Problem List Initiated/Reviewed/Updated: Yes - Plan Plan:: 70 yo male admitted with generalized weakness, anemia and leukocytosis Plan Full code Spoke to , Lexy (ZEINA), regarding goals of care; mentions to continue providing blood products to treat anemia and aggarwal-scan to evaluate for any acute processes. Mentions hallucinations and increasing symptomatology have been increasing especially in past 3 weeks ; mentions some concerns about lewy body dementia however no official diagnosis has been reported as decline has been rapid Also mentions to me his l/e swelling has worsened 1 week prior to this admission; increased his lasix to 8o mg BID x 5 days w/ decrease in edema; otherwise denies any other signs of acute bleeding. of note, make mention that pt is also a poor historian and does downplay symptoms making ROS difficult Symptomatic anemia: guaiac positive but no evidence of occult bleeding. Post transfusion Hgb was 7.8; will transfuse additional unit and recheck H/H this afternoon Leukocytosis: CT head, abdomen, pelvis did not yield any overt acute processes., +for left sided chronic sinusitis Will continue to monitor, pt. does not appear septic and is currently afebrile; receiving additional units of blood; will continue to monitor for any overt infections process and treat accordingly . COPD: patient received steroids, duonebs prn
[2020-08-11] MEDS ORDERED: Albuterol HFA 18 Gm Inhaler INH PRN (11:53)
[2020-08-11] MEDS ORDERED: Metoprolol Tartrate 50 MG Tab PO SCH (14:00)
[2020-08-11] MEDS ORDERED: GABAPENTIN 1200 MG PO SCH (14:00)
[2020-08-11] MEDS: Pregabalin 75 MG Cap PO SCH ×2 (14:06→21:24)
[2020-08-11] MEDS: Carvedilol 6.25 MG Tab PO SCH (21:25)
[2020-08-12] MEDS: Pregabalin 75 MG Cap PO SCH ×3 (05:05→23:28)
[2020-08-12] MEDS: Albuterol/Ipratropium 3.0-0.5 MG/3 ML Neb Soln NEB PRN (06:09)
[2020-08-12 07:45] LABS: CARBON DIOXIDE,CO2 23.6 mmol/L (21.0-32.0); POTASSIUM,K 4.3 mmol/L (3.5-5.1)
[2020-08-12] MEDS: Fluticasone/Salmeterol 250-50 MCG Inhalation Powder 14/Diskus INH SCH ×2 (08:40→20:23)
[2020-08-12] MEDS: atorvaSTATin 20 MG Tab PO SCH (08:42)
[2020-08-12] MEDS: Carvedilol 6.25 MG Tab PO SCH ×2 (08:42→21:47)
[2020-08-12] MEDS: Tiotropium Inhaler 18 MCG Inhalation Powder Cap Kit of 5 INH SCH (08:42)
[2020-08-12] MEDS: Pantoprazole 40 MG in Sodium Chloride 0.9% 10 ML IV SCH ×2 (08:43→23:14)
[2020-08-12] MEDS: Amiodarone 200 MG Tab PO SCH (08:45)
--- NOTE | 2020-08-12 11:22 | PCM.PN ---
- General Info Date of Service: 08/12/20 Subjective Update: Bedside: [pt. states feeling hungry; denies any other overt concerns. Functional Status: Reports: Pain Controlled - Review of Systems General: Reports: No Symptoms Pulmonary: Reports: No Symptoms Cardiovascular: Reports: No Symptoms Gastrointestinal: Reports: No Symptoms, Melena. Denies: Constipation, Decreased Appetite, Diarrhea, Hematochezia, Nausea, Vomiting Genitourinary: Reports: No Symptoms Musculoskeletal: Reports: No Symptoms Skin: Reports: No Symptoms - Patient Data Vitals - Most Recent: Last Vital Signs Temp 97.7 F 08/12/20 08:00 Pulse 85 08/12/20 08:42 Resp 18 08/12/20 08:00 BP 111/65 08/12/20 08:42 Pulse Ox 95 08/12/20 08:00 Weight - Most Recent: 99 kg I&O - Last 24 Hours: Intake & Output 08/11/20 08/12/20 08/12/20 22:59 06:59 14:59 Intake Total 1430 800 Output Total 620 Balance 1430 180 Lab Results Last 24 Hours: Laboratory Results - last 24 hr 08/10/20 08/10/20 08/11/20 Range/Units 17:45 21:35 07:56 WBC (4.0-11.0) K/uL RBC (4.50-5.90) M/uL Hgb (13.0-17.0) g/dL Hct (38.0-50.0) % MCV (80.0-98.0) fL MCH (27.0-32.0) pg MCHC (31.0-37.0) g/dL RDW Std Deviation (28.0-62.0) fl RDW Coeff of Jeannie (11.0-15.0) % Plt Count (150-400) K/uL Add Manual Diff Neutrophils % (Manual) (48.0-80.0) % Band Neutrophils % % Lymphocytes % (Manual) (16.0-40.0) % Monocytes % (Manual) (0.0-15.0) % Nucleated RBC % /100WBC Absolute Seg Neuts (1.4-5.7) Band Neutrophils # Lymphocytes # (Manual) (0.6-2.4) Monocytes # (Manual) (0.0-0.8) Nucleated RBCs # K/uL Poikilocytosis Elliptocytes Schistocytes INR Sodium (136-148) mmol/L Potassium (3.5-5.1) mmol/L Chloride (98-107) mmol/L Carbon Dioxide (21.0-32.0) mmol/L BUN (7.0-18.0) mg/dL Creatinine (0.8-1.3) mg/dL Est Cr Clr Drug Dosing mL/min Estimated GFR (MDRD) ml/min Glucose (74-106) mg/dL Calcium (8.5-10.1) mg/dL GGT 29 (5-85) U/L Procalcitonin 0.24 H (<0.10) ng/mL Blood Type A POSITIVE Antibody Screen NEGATIVE Crossmatch See Detail 08/11/20 08/12/20 08/12/20 Range/Units 18:47 06:16 06:16 WBC 16.69 H (4.0-11.0) K/uL RBC 3.73 L (4.50-5.90) M/uL Hgb 8.8 L 8.4 L (13.0-17.0) g/dL Hct 29.6 L 27.7 L (38.0-50.0) % MCV 74.3 L (80.0-98.0) fL MCH 22.5 L (27.0-32.0) pg MCHC 30.3 L (31.0-37.0) g/dL RDW Std Deviation 55.2 (28.0-62.0) fl RDW Coeff of Jeannie 20 H (11.0-15.0) % Plt Count 125 L (150-400) K/uL Add Manual Diff YES Neutrophils % (Manual) 85 H (48.0-80.0) % Band Neutrophils % 6 % Lymphocytes % (Manual) 6 L (16.0-40.0) % Monocytes % (Manual) 3 (0.0-15.0) % Nucleated RBC % 0.5 /100WBC Absolute Seg Neuts 14.2 H (1.4-5.7) Band Neutrophils # 1.0 Lymphocytes # (Manual) 1.0 (0.6-2.4) Monocytes # (Manual) 0.5 (0.0-0.8) Nucleated RBCs # 0 K/uL Poikilocytosis 2+ MODERATE Elliptocytes 1+ SLIGHT Schistocytes 1+ SLIGHT INR Sodium 139 (136-148) mmol/L Potassium 4.3 (3.5-5.1) mmol/L Chloride 103 (98-107) mmol/L Carbon Dioxide 23.6 (21.0-32.0) mmol/L BUN 42 H (7.0-18.0) mg/dL Creatinine 2.2 H (0.8-1.3) mg/dL Est Cr Clr Drug Dosing 33.31 mL/min Estimated GFR (MDRD) 29.6 ml/min Glucose 146 H (74-106) mg/dL Calcium 8.2 L (8.5-10.1) mg/dL GGT (5-85) U/L Procalcitonin (<0.10) ng/mL Blood Type Antibody Screen Crossmatch 08/12/20 Range/Units 08:15 WBC (4.0-11.0) K/uL RBC (4.50-5.90) M/uL Hgb (13.0-17.0) g/dL Hct (38.0-50.0) % MCV (80.0-98.0) fL MCH (27.0-32.0) pg MCHC (31.0-37.0) g/dL RDW Std Deviation (28.0-62.0) fl RDW Coeff of Jeannie (11.0-15.0) % Plt Count (150-400) K/uL Add Manual Diff Neutrophils % (Manual) (48.0-80.0) % Band Neutrophils % % Lymphocytes % (Manual) (16.0-40.0) % Monocytes % (Manual) (0.0-15.0) % Nucleated RBC % /100WBC Absolute Seg Neuts (1.4-5.7) Band Neutrophils # Lymphocytes # (Manual) (0.6-2.4) Monocytes # (Manual) (0.0-0.8) Nucleated RBCs # K/uL Poikilocytosis Elliptocytes Schistocytes INR 1.08 Sodium (136-148) mmol/L Potassium (3.5-5.1) mmol/L Chloride (98-107) mmol/L Carbon Dioxide (21.0-32.0) mmol/L BUN (7.0-18.0) mg/dL Creatinine (0.8-1.3) mg/dL Est Cr Clr Drug Dosing mL/min Estimated GFR (MDRD) ml/min Glucose (74-106) mg/dL Calcium (8.5-10.1) mg/dL GGT (5-85) U/L Procalcitonin (<0.10) ng/mL Blood Type Antibody Screen Crossmatch [place] Results Last 24 Hours: Microbiology 08/10/20 20:33 Urine Culture - Preliminary Urine, Catheterized NO GROWTH AFTER 1 DAY 08/10/20 18:54 Aerobic Blood Culture - Preliminary Blood - Venous - Lab Draw NO GROWTH AFTER 1 DAY Anaerobic Blood Culture - Final 08/10/20 18:42 Aerobic Blood Culture - Preliminary Blood - Venous NO GROWTH AFTER 1 DAY Anaerobic Blood Culture - Preliminary NO GROWTH AFTER 1 DAY Med Orders - Current: Current Medications Albuterol (Ventolin Hfa) 1 - 2 gm INH Q4H PRN PRN Reason: Dyspnea Albuterol/Ipratropium (Duoneb 3.0-0.5 Mg/3 Ml) 3 ml NEB Q4HRRT PRN PRN Reason: Wheezing Last Admin: 08/12/20 06:09 Dose: 3 ml Documented by: Amiodarone HCl (Cordarone) 400 mg PO DAILY [facility] Last Admin: 08/12/20 08:45 Dose: 400 mg Documented by: Atorvastatin Calcium (Lipitor) 20 mg PO DAILY [facility] Last Admin: 08/12/20 08:42 Dose: 20 mg Documented by: Carvedilol (Coreg) 12.5 mg PO BID [facility] Last Admin: 08/12/20 08:42 Dose: 12.5 mg Documented by: Pantoprazole Sodium 40 mg/ (Sodium Chloride) 10 mls @ 300 mls/hr IV Q12H [facility] Last Admin: 08/12/20 08:43 Dose: 300 mls/hr Documented by: Pregabalin (Lyrica) 150 mg PO TID [facility] Last Admin: 08/12/20 05:05 Dose: 150 mg Documented by: Fluticasone/Salmeterol (Advair Diskus 250-50) 1 puff INH BID [facility] Last Admin: 08/12/20 08:40 Dose: 1 inhalation Documented by: Sodium Chloride (Saline Flush) 10 ml FLUSH ASDIRECTED PRN PRN Reason: Keep Vein Open Last Admin: 08/10/20 18:51 Dose: 10 ml Documented by: Sodium Chloride (Saline Flush) 2.5 ml FLUSH ASDIRECTED PRN PRN Reason: Keep Vein Open Last Admin: 08/10/20 18:50 Dose: 2.5 ml Documented by: Tiotropium [place] (Spiriva Handihaler) 18 mcg INH DAILY [facility] Last Admin: 08/12/20 08:42 Dose: 18 mcg Documented by: Discontinued Medications Albuterol/Ipratropium (Duoneb 3.0-0.5 Mg/3 Ml) 3 ml NEB ONETIME ONE Stop: 08/10/20 17:40 Last Admin: 08/10/20 18:02 Dose: 3 ml Documented by: Sodium Chloride (Normal Saline) 500 mls @ 999 mls/hr IV .BOLUS [facility] Last Admin: 08/10/20 18:02 Dose: 999 mls/hr Documented by: Cefepime HCl 2 gm/ Premix 50 mls @ 100 mls/hr IV ONETIME ONE Stop: 08/10/20 19:01 Last Admin: 08/10/20 18:48 Dose: 100 mls/hr Documented by: Sodium Chloride (Normal Saline) 1,000 mls @ 125 mls/hr IV ASDIRECTED [facility] Last Admin: 08/10/20 20:34 Dose: 500 mls/hr Documented by: Pantoprazole Sodium 40 mg/ (Sodium Chloride) 10 mls @ 300 mls/hr IV ONETIME ONE Stop: 08/10/20 23:46 Last Admin: 08/11/20 00:12 Dose: 300 mls/hr Documented by: Methylprednisolone Sodium Succinate (Solu-Medrol) 125 mg IVPUSH ONETIME ONE Stop: 08/10/20 17:40 Last Admin: 08/10/20 18:48 Dose: 125 mg Documented by: - Exam Quality Assessment: Supplemental Oxygen General: Alert, Oriented, Cooperative, No Acute Distress HEENT: EOMI, Mucous Membr. Moist/[place] Neck: Supple Lungs: Normal Respiratory Effort, Other (mild expiratory wheezing ) Cardiovascular: Regular Rate, Irregular Rhythm GI/Abdominal Exam: Soft, Non-Tender Extremities: Other (+1-2 pitting edema ) Skin: Warm Wound/Incisions: Healing Well Neurological: No New Focal Deficit, Normal Speech Psy/Mental Status: Alert, Normal Affect Sepsis Event Note - Evaluation Sepsis Screening Result: No Definite Risk - Focused Exam Vital Signs: Vital Signs Temp Pulse Pulse Resp BP BP Pulse Ox 08/12/20 08:42 85 111/65 08/12/20 08:00 97.7 F 85 18 111/65 95 08/12/20 04:00 97.9 F 92 20 135/68 95 08/12/20 00:00 97.1 F 108 H 20 138/90 95 - Problem List Review Problem List Initiated/Reviewed/Updated: Yes - My Orders Last 24 Hours: My Active Orders 08/11/20 11:13 Code Status [Resuscitation Status] Routine 08/11/20 11:53 Albuterol [Ventolin HFA] 1 - 2 gm INH Q4H PRN 08/11/20 14:00 Pregabalin [Lyrica] 150 mg PO TID 08/11/20 21:00 carvediloL [Coreg] 12.5 mg PO BID 08/12/20 09:00 Amiodarone [Cordarone] 400 mg PO DAILY atorvaSTATin [Lipitor] 20 mg PO DAILY 08/12/20 09:47 Notify Provider Consults [RC] ASDIRECTED Consult to Physician [CONS] Urgent 08/13/20 05:11 BMP [BASIC METABOLIC PANEL,BMP] [CHEM] AM CBC WITH AUTO DIFF [HEME] AM 08/14/20 05:11 BMP [BASIC METABOLIC PANEL,BMP] [CHEM] AM CBC WITH AUTO DIFF [HEME] AM - Plan Plan:: 70 yo male admitted with generalized weakness, anemia and leukocytosis Plan Full code Hgb : hgb s/p s/p 3 units PRBC ; H/H 8.8 (elevated reticulocyte count) down this AM : 8.4 ; concerns for continuing GI-bleed; spoke and discussed case with on-call surgeon, Santhosh Orellana; we appreciate his help and expertise in this matter. Official consult placed. Discussed case with Nunu PASTRANA, agrees to EGD/scope if required by Surgery. Symptomatic anemia: guaiac positive Leukocytosis-improving: CT head, abdomen, pelvis did not yield any overt acute processes., +for left sided chronic sinusitis, no facial tenderness Will continue to monitor, pt. does not appear septic and is currently afebrile; will continue to monitor for any overt infections process and treat accordingly. WBC: down to 16, micro negative (UA culture x 1 -day negative) COPD: patient received steroids, duonebs prn
--- NOTE | 2020-08-12 15:49 | PCM.SN.2 ---
- Free Text/Narrative Note: Pt seen, chart reviewed; anemia to 5.8, got 3 RBC transfusion, back up to 8.8, and today is 8.4, and consult surgery for possible endoscope studies; Pt remarked black tarry stool for a couple of weeks, but last BM was brown; denied BRBPR/hematemisis/hemoptysis/hematuria/abd pain; last colonoscopy and EGD were 35 years ago; pt repeated, it was 35 yrs ago, or 3 to 5 years ago; pt is annoyed for more interviewed; will see pt in the morning, hopefully more cooperative; pls transfuse to above 10, in case, pt may need endoscope as inpatient; will reassess pt in the morning.
[2020-08-13] MEDS: Pregabalin 75 MG Cap PO SCH ×3 (06:35→21:33)
[2020-08-13 07:22] LABS: CARBON DIOXIDE,CO2 27.7 mmol/L (21.0-32.0); POTASSIUM,K 4.1 mmol/L (3.5-5.1)
[2020-08-13] MEDS: Tiotropium Inhaler 18 MCG Inhalation Powder Cap Kit of 5 INH SCH (08:34)
[2020-08-13] MEDS: Fluticasone/Salmeterol 250-50 MCG Inhalation Powder 14/Diskus INH SCH ×2 (08:35→21:27)
[2020-08-13] MEDS: Pantoprazole 40 MG in Sodium Chloride 0.9% 10 ML IV SCH ×2 (08:43→21:26)
[2020-08-13] MEDS: Amiodarone 200 MG Tab PO SCH (08:45)
[2020-08-13] MEDS: atorvaSTATin 20 MG Tab PO SCH (08:45)
[2020-08-13] MEDS: Carvedilol 6.25 MG Tab PO SCH ×2 (08:45→21:25)
--- NOTE | 2020-08-13 09:47 | PCM.SN.2 ---
- Free Text/Narrative Note: after 5 RBC, pt h/h qo 11.0 this am; BNP 364. Please consult photographer assistant Dr Barraza today; and tentatively schedule him for egd tomorrow; npo tonight for procedure tomorroe
--- NOTE | 2020-08-13 10:20 | PCM.SN.2 ---
- Free Text/Narrative Note: pt seen, chart reviewed; proceed w egd tomorrow; pls cx nursing unit coordinator; [id number]
--- NOTE | 2020-08-13 12:32 | PCM.PN ---
<Peter Wilkinson - Last Filed: 08/13/20 13:09> - General Info Date of Service: 08/13/20 Subjective Update: Bedside: no acute complaints. Sitting upright and eating. Unreliable ROS Functional Status: Reports: Pain Controlled - Review of Systems General: Reports: No Symptoms HEENT: Reports: No Symptoms Pulmonary: Reports: No Symptoms Cardiovascular: Reports: No Symptoms Gastrointestinal: Reports: No Symptoms Genitourinary: Reports: No Symptoms Musculoskeletal: Reports: No Symptoms Skin: Reports: No Symptoms Neurological: Reports: No Symptoms - Patient Data Vitals - Most Recent: Last Vital Signs Temp 97.2 F 08/13/20 12:00 Pulse 60 08/13/20 12:00 Resp 15 08/13/20 12:00 BP 113/66 08/13/20 12:00 Pulse Ox 98 08/13/20 12:00 Weight - Most Recent: 99 kg I&O - Last 24 Hours: Intake & Output 08/12/20 08/13/20 08/13/20 22:59 06:59 14:59 Intake Total 376 1037 Output Total 400 Balance 376 637 Lab Results Last 24 Hours: Laboratory Results - last 24 hr 08/10/20 08/10/20 08/13/20 Range/Units 21:35 21:35 05:48 WBC 13.75 H (4.0-11.0) K/uL RBC 4.61 (4.50-5.90) M/uL Hgb 11.0 L (13.0-17.0) g/dL Hct 35.9 L (38.0-50.0) % MCV 77.9 L (80.0-98.0) fL MCH 23.9 L (27.0-32.0) pg MCHC 30.6 L (31.0-37.0) g/dL RDW Std Deviation 59.8 (28.0-62.0) fl RDW Coeff of Jeannie 21 H (11.0-15.0) % Plt Count 126 L (150-400) K/uL Add Manual Diff YES Neutrophils % (Manual) 72 (48.0-80.0) % Band Neutrophils % 4 % Lymphocytes % (Manual) 10 L (16.0-40.0) % Monocytes % (Manual) 10 (0.0-15.0) % Eosinophils % (Manual) 3 (0.0-7.0) % Basophils % (Manual) 1 (0.0-1.5) % Metamyelocytes % 1 % Nucleated RBC % 0.3 /100WBC Absolute Seg Neuts 9.9 H (1.4-5.7) Band Neutrophils # 0.6 Lymphocytes # (Manual) 1.4 (0.6-2.4) Monocytes # (Manual) 1.4 H (0.0-0.8) Eosinophils # (Manual) 0.4 (0.0-0.7) Basophils # (Manual) 0.1 (0.0-0.1) Absolute Metamyelocyte 0.1 Nucleated RBCs # 0 K/uL Poikilocytosis 2+ MODERATE Elliptocytes 1+ SLIGHT Schistocytes 1+ SLIGHT Sodium (136-148) mmol/L Potassium (3.5-5.1) mmol/L Chloride (98-107) mmol/L Carbon Dioxide (21.0-32.0) mmol/L BUN (7.0-18.0) mg/dL Creatinine (0.8-1.3) mg/dL Est Cr Clr Drug Dosing mL/min Estimated GFR (MDRD) ml/min Glucose (74-106) mg/dL Calcium (8.5-10.1) mg/dL Blood Type A POSITIVE Cancelled Antibody Screen NEGATIVE Cancelled Crossmatch See Detail See Detail 08/13/20 Range/Units 05:48 WBC (4.0-11.0) K/uL RBC (4.50-5.90) M/uL Hgb (13.0-17.0) g/dL Hct (38.0-50.0) % MCV (80.0-98.0) fL MCH (27.0-32.0) pg MCHC (31.0-37.0) g/dL RDW Std Deviation (28.0-62.0) fl RDW Coeff of Jeannie (11.0-15.0) % Plt Count (150-400) K/uL Add Manual Diff Neutrophils % (Manual) (48.0-80.0) % Band Neutrophils % % Lymphocytes % (Manual) (16.0-40.0) % Monocytes % (Manual) (0.0-15.0) % Eosinophils % (Manual) (0.0-7.0) % Basophils % (Manual) (0.0-1.5) % Metamyelocytes % % Nucleated RBC % /100WBC Absolute Seg Neuts (1.4-5.7) Band Neutrophils # Lymphocytes # (Manual) (0.6-2.4) Monocytes # (Manual) (0.0-0.8) Eosinophils # (Manual) (0.0-0.7) Basophils # (Manual) (0.0-0.1) Absolute Metamyelocyte Nucleated RBCs # K/uL Poikilocytosis Elliptocytes Schistocytes Sodium 138 (136-148) mmol/L Potassium 4.1 (3.5-5.1) mmol/L Chloride 103 (98-107) mmol/L Carbon Dioxide 27.7 (21.0-32.0) mmol/L BUN 38 H (7.0-18.0) mg/dL Creatinine 1.8 H (0.8-1.3) mg/dL Est Cr Clr Drug Dosing 40.72 mL/min Estimated GFR (MDRD) 37.3 ml/min Glucose 84 (74-106) mg/dL Calcium 8.4 L (8.5-10.1) mg/dL Blood Type Antibody Screen Crossmatch [place] Results Last 24 Hours: Microbiology 08/10/20 20:33 Urine Culture - Final Urine, Catheterized No Growth 08/10/20 18:54 Aerobic Blood Culture - Preliminary Blood - Venous - Lab Draw NO GROWTH AFTER 2 DAYS Anaerobic Blood Culture - Final 08/10/20 18:42 Aerobic Blood Culture - Preliminary Blood - Venous NO GROWTH AFTER 2 DAYS Anaerobic Blood Culture - Preliminary NO GROWTH AFTER 2 DAYS Med Orders - Current: Current Medications Albuterol (Ventolin Hfa) 1 - 2 gm INH Q4H PRN PRN Reason: Dyspnea Albuterol/Ipratropium (Duoneb 3.0-0.5 Mg/3 Ml) 3 ml NEB Q4HRRT PRN PRN Reason: Wheezing Last Admin: 08/12/20 06:09 Dose: 3 ml Documented by: Amiodarone HCl (Cordarone) 400 mg PO DAILY [facility] Last Admin: 08/13/20 08:45 Dose: 400 mg Documented by: Atorvastatin Calcium (Lipitor) 20 mg PO DAILY [facility] Last Admin: 08/13/20 08:45 Dose: 20 mg Documented by: Carvedilol (Coreg) 12.5 mg PO BID [facility] Last Admin: 08/13/20 08:45 Dose: 12.5 mg Documented by: Pantoprazole Sodium 40 mg/ (Sodium Chloride) 10 mls @ 300 mls/hr IV Q12H [facility] Last Admin: 08/13/20 08:43 Dose: 300 mls/hr Documented by: Pregabalin (Lyrica) 150 mg PO TID [facility] Last Admin: 08/13/20 06:35 Dose: 150 mg Documented by: Fluticasone/Salmeterol (Advair Diskus 250-50) 1 puff INH BID [facility] Last Admin: 08/13/20 08:35 Dose: 1 inhalation Documented by: Sodium Chloride (Saline Flush) 10 ml FLUSH ASDIRECTED PRN PRN Reason: Keep Vein Open Last Admin: 08/10/20 18:51 Dose: 10 ml Documented by: Sodium Chloride (Saline Flush) 2.5 ml FLUSH ASDIRECTED PRN PRN Reason: Keep Vein Open Last Admin: 08/10/20 18:50 Dose: 2.5 ml Documented by: Tiotropium [place] (Spiriva Handihaler) 18 mcg INH DAILY [facility] Last Admin: 08/13/20 08:34 Dose: 18 mcg Documented by: Discontinued Medications Albuterol/Ipratropium (Duoneb 3.0-0.5 Mg/3 Ml) 3 ml NEB ONETIME ONE Stop: 08/10/20 17:40 Last Admin: 08/10/20 18:02 Dose: 3 ml Documented by: Sodium Chloride (Normal Saline) 500 mls @ 999 mls/hr IV .BOLUS [facility] Last Admin: 08/10/20 18:02 Dose: 999 mls/hr Documented by: Cefepime HCl 2 gm/ Premix 50 mls @ 100 mls/hr IV ONETIME ONE Stop: 08/10/20 19:01 Last Admin: 08/10/20 18:48 Dose: 100 mls/hr Documented by: Sodium Chloride (Normal Saline) 1,000 mls @ 125 mls/hr IV ASDIRECTED [facility] Last Admin: 08/10/20 20:34 Dose: 500 mls/hr Documented by: Pantoprazole Sodium 40 mg/ (Sodium Chloride) 10 mls @ 300 mls/hr IV ONETIME ONE Stop: 08/10/20 23:46 Last Admin: 08/11/20 00:12 Dose: 300 mls/hr Documented by: Methylprednisolone Sodium Succinate (Solu-Medrol) 125 mg IVPUSH ONETIME ONE Stop: 08/10/20 17:40 Last Admin: 08/10/20 18:48 Dose: 125 mg Documented by: - Exam Quality Assessment: No: Supplemental Oxygen General: Alert, Oriented, Cooperative HEENT: EOMI Neck: Supple Lungs: Clear to Auscultation, Normal Respiratory Effort Cardiovascular: Regular Rate, Irregular Rhythm GI/Abdominal Exam: Soft Extremities: Other (+1-2 pitting edema ) Neurological: No New Focal Deficit, Normal Speech Psy/Mental Status: Alert, Normal Mood Sepsis Event Note - Evaluation Sepsis Screening Result: No Definite Risk - Focused Exam Vital Signs: Vital Signs Temp Pulse Pulse Resp BP BP BP 08/13/20 12:00 97.2 F 60 15 113/66 08/13/20 08:45 75 140/77 08/13/20 08:00 97.5 F 66 17 140/77 118/67 08/13/20 03:59 97.9 F 86 16 141/87 H Pulse Ox 08/13/20 12:00 98 08/13/20 08:45 08/13/20 08:00 97 08/13/20 03:59 97 - Problem List Review Problem List Initiated/Reviewed/Updated: Yes - My Orders Last 24 Hours: My Active Orders 08/12/20 Dinner Full Liquid Diet [DIET] 08/12/20 16:53 RED BLOOD CELLS LP [BBK] Stat 08/12/20 16:54 Transfuse RBC [Transfuse Red Blood Cells] [COMM] Routine 08/14/20 05:11 BMP [BASIC METABOLIC PANEL,BMP] [CHEM] AM CBC WITH AUTO DIFF [HEME] AM - Plan Plan:: 70 yo male admitted with generalized weakness, anemia and leukocytosis Plan Full code Hgb : hgb s/p s/p 5 units PRBC ; H/H:11 as requested by Surgery for possible EGD ; concerns for continuing GI-bleed; spoke and discussed case with on-call surgeon, Santhosh Orellana; we appreciate his help and expertise in this matter. Recommend EGD but will consult Dr Barraza of Cardiology for EGD clearance ; also awaiting clearance from anesthesia as well We appreciate all specialists helping in this matter Diet :clear liquids Patient otherwise appears more alert and less lethargic this AM s/p 5 units PRBC Discussed update with , Lexy, mentions in the past having a hard timw with deep anesthesia; otherwise is fine with EGD if necesary; may still need outpatient colonoscopy Discussed case with Nunu PASTRANA, agrees to EGD/scope if required by Surgery. Symptomatic anemia: guaiac positive Leukocytosis-improving; down to 13 from 19 : CT head, abdomen, pelvis did not yield any overt acute processes., +for left sided chronic sinusitis, no facial tenderness Will continue to monitor, pt. does not appear septic and is currently afebrile; will continue to monitor for any overt infections process and treat accordingly. micro negative (UA culture x 1 -day negative) COPD: duonebs prn <Nuha Delgado - Last Filed: 08/15/20 13:40> - Patient Data Vitals - Most Recent: Last Vital Signs Temp 36.2 C 08/14/20 16:00 Pulse 68 08/14/20 16:00 Resp 20 08/14/20 16:00 BP 138/72 08/14/20 16:00 Pulse Ox 91 L 08/14/20 16:00 [place]bron Results Last 24 Hours: Microbiology 08/10/20 18:54 Aerobic Blood Culture - Preliminary Blood - Venous - Lab Draw NO GROWTH AFTER 4 DAYS Anaerobic Blood Culture - Final 08/10/20 18:42 Aerobic Blood Culture - Preliminary Blood - Venous NO GROWTH AFTER 4 DAYS Anaerobic Blood Culture - Preliminary NO GROWTH AFTER 4 DAYS Med Orders - Current: Current Medications Discontinued Medications Albuterol (Ventolin Hfa) 1 - 2 gm INH Q4H PRN PRN Reason: Dyspnea Albuterol/Ipratropium (Duoneb 3.0-0.5 Mg/3 Ml) 3 ml NEB ONETIME ONE Stop: 08/10/20 17:40 Last Admin: 08/10/20 18:02 Dose: 3 ml Documented by: Albuterol/Ipratropium (Duoneb 3.0-0.5 Mg/3 Ml) 3 ml NEB Q4HRRT PRN PRN Reason: Wheezing Last Admin: 08/12/20 06:09 Dose: 3 ml Documented by: Amiodarone HCl (Cordarone) 400 mg PO DAILY [facility] Last Admin: 08/13/20 08:45 Dose: 400 mg Documented by: Atorvastatin Calcium (Lipitor) 20 mg PO DAILY [facility] Last Admin: 08/14/20 10:45 Dose: 20 mg Documented by: Carvedilol (Coreg) 12.5 mg PO BID [facility] Last Admin: 08/14/20 10:43 Dose: 12.5 mg Documented by: Furosemide (Lasix) 40 mg IVPUSH NOW ONE Stop: 08/14/20 08:12 Last Admin: 08/14/20 09:50 Dose: 40 mg Documented by: Sodium Chloride (Normal Saline) 500 mls @ 999 mls/hr IV .BOLUS [facility] Last Admin: 08/10/20 18:02 Dose: 999 mls/hr Documented by: Cefepime HCl 2 gm/ Premix 50 mls @ 100 mls/hr IV ONETIME ONE Stop: 08/10/20 19:01 Last Admin: 08/10/20 18:48 Dose: 100 mls/hr Documented by: Sodium Chloride (Normal Saline) 1,000 mls @ 125 mls/hr IV ASDIRECTED [facility] Last Admin: 08/10/20 20:34 Dose: 500 mls/hr Documented by: Pantoprazole Sodium 40 mg/ (Sodium Chloride) 10 mls @ 300 mls/hr IV Q12H [facility] Last Admin: 08/14/20 09:50 Dose: 300 mls/hr Documented by: Pantoprazole Sodium 40 mg/ (Sodium Chloride) 10 mls @ 300 mls/hr IV ONETIME ONE Stop: 08/10/20 23:46 Last Admin: 08/11/20 00:12 Dose: 300 mls/hr Documented by: Methylprednisolone Sodium Succinate (Solu-Medrol) 125 mg IVPUSH ONETIME ONE Stop: 08/10/20 17:40 Last Admin: 08/10/20 18:48 Dose: 125 mg Documented by: Pregabalin (Lyrica) 150 mg PO TID [facility] Last Admin: 08/14/20 14:14 Dose: 150 mg Documented by: Fluticasone/Salmeterol (Advair Diskus 250-50) 1 puff INH BID [facility] Last Admin: 08/14/20 09:51 Dose: 1 inhalation Documented by: Sodium Chloride (Saline Flush) 10 ml FLUSH ASDIRECTED PRN PRN Reason: Keep Vein Open Last Admin: 08/10/20 18:51 Dose: 10 ml Documented by: Sodium Chloride (Saline Flush) 2.5 ml FLUSH ASDIRECTED PRN PRN Reason: Keep Vein Open Last Admin: 08/10/20 18:50 Dose: 2.5 ml Documented by: Tiotropium [place] (Spiriva Handihaler) 18 mcg INH DAILY [facility] Last Admin: 08/14/20 09:51 Dose: 18 mcg Documented by: - Plan Plan:: I have seen and evaluated the patient and agree with the residents note unless specified in my note
--- NOTE | 2020-08-13 14:21 | CONS ---
DATE OF CONSULTATION: 08/13/2020 DATE OF : 1950 PRIMARY CARE PHYSICIAN: Antonio Arias M.D. REASON FOR CONSULTATION: Consult called, the patient seen shortly after. Consulting question is anemic. HISTORY OF PRESENT ILLNESS: The patient is a 70-year-old gentleman with past medical history significant for AFib, on anticoagulation; COPD; and history of C. difficile infection who was admitted through the emergency room for shortness of breath and generalized weakness. Emergency room workup remarkable for Hgb of 5.8. The patient has since been admitted and given 5 packed cells of transfusion. The patient admitted 3 days ago and this is day 4 of the hospitalization. Consult was called for possible endoscopy study. This morning, the patient was sitting up in chair and widely awake and very pleasant. Complained about black tarry stool for a couple of weeks, but the last one he remarked is brown and yellow. Denied abdominal pain, denied shortness of breath, denied syncope, and denied lower extremity bilateral edema. The patient has been on clear liquid and also has been stopped on his anticoagulation. PAST MEDICAL HISTORY: Alluded to. PAST SURGICAL HISTORY: No abdominal history. ALLERGIES: Please refer to nursing note for details. MEDICATIONS: Please refer to nursing note for details. PHYSICAL EXAMINATION: GENERAL: A very pleasant gentleman sitting in chair comfortably and cooperating with examination. HEENT: Normocephalic and atraumatic. Sclerae anicteric. LUNGS: Clear to auscultation. HEART: Regular rate and rhythm. ABDOMEN: Soft, nondistended. No pulsating tender midline abdominal structure. LABORATORY DATA: Upon consultation, white cell is 13.75, H and H are 11 and 36, platelets are 126. INR yesterday was 1.08. BUN is 38, creatinine is 1.8. BNP is 364. Troponin is negative. IMPRESSION: Anemic to 5.8 and received 5 packed cells and apparently H and H have been holding up, but with the patient history on anticoagulation, the patient probably would benefit to have an esophagogastroduodenoscopy. Have asked our Anesthesiology team to take a look at the patient. They agree for esophagogastroduodenoscopy study, but probably would also need to have Cardiology to know the patient a bit, and please consult Cardiology, Dr. Major, before the procedure. Tentatively, we will put the patient tomorrow. Thanks for the consult and care of this pleasant gentleman. As always, thank you for the kind referral. DON TEJADA /[id number]
[2020-08-14] MEDS: Pregabalin 75 MG Cap PO SCH ×2 (05:47→14:14)
[2020-08-14 06:32] LABS: CARBON DIOXIDE,CO2 29.7 mmol/L (21.0-32.0); POTASSIUM,K 4.9 mmol/L (3.5-5.1)
[2020-08-14] MEDS ORDERED: Furosemide 40 MG/4 ML VIAL IVPUSH ONE (08:11)
[2020-08-14] MEDS: Pantoprazole 40 MG in Sodium Chloride 0.9% 10 ML IV SCH (09:50)
--- NOTE | 2020-08-14 09:50 | CONS ---
DATE OF CONSULTATION: 08/14/2020 DATE OF : 1950 PRIMARY CARE PHYSICIAN: Antonio Arias M.D. REASON FOR CONSULTATION: Preop for endoscopy. HISTORY OF PRESENT ILLNESS: This is a 70-year-old male who had a history of previous alcoholic abuse, hypertension, dyslipidemia, former smoker, history of mild CAD, with COPD, O2 dependent, heart failure, cardiomyopathy possibly from tachycardia-induced chronic AFib. He presented to the hospital with reportedly black tarry stool, came in basically because of a dizzy spell with increasing shortness of breath and generalized weakness, and he is not a very good historian. He was found to have hemoglobin of 5.8. He reportedly had black stool, however, he reported to the ED doctor, brown stool. No one has seen his bowel movement at home, and he has not had any bowel movement yet. He has received multiple blood transfusions now. His hemoglobin is stable at 11, and surgical consultation was made and recommended to have the upper endoscopy; however, the patient was requested to be cleared by a sludge control operator for the endoscopy first. Basically, from the past medical history, he does have chronic persistent atrial fibrillation in December 2019. He underwent a VIANCA cardioversion. He reverted back to AFib within 1-1/2 days, and then since, he has been deemed to be just rate control approach only. I saw him last time in March 2020. At that time, his heart rate was still fast and around 120 to 130. When I saw him last time, his blood pressure was around 120/74, and he was already on the metoprolol 50 twice a day, as well as the Eliquis 5 mg twice a day, and along with the aspirin due to mild CAD. I started him on the amiodarone for the rate control only and increased the metoprolol to 50 t.i.d., and he was supposed to come back in 1 month for the heart rate followup; however, he has not come back. PAST MEDICAL HISTORY: Including non-ischemic cardiomyopathy, possibly due to tachycardia induced, significant COPD O2 dependent, hypertension, dyslipidemia, recurrent UTI, chronic persistent atrial fibrillation, possibly permanent atrial fibrillation now. PAST SURGICAL HISTORY: Cardiac surgery, vasectomy. FAMILY HISTORY: Denied history of CAD. SOCIAL HISTORY: History of previous alcoholic drinking and smoking. No drug use. REVIEW OF SYSTEMS: Shortness of breath positive and black tarry stool positive. Other than that, has been mentioned above in HPI. PHYSICAL EXAMINATION: VITAL SIGNS: Initial vital sign is 128/86, heart rate seemed to be good control, running between 50 to 90, and O2 saturation is 100 on 2 L. Blood pressure 130/70 and temperature 96.7. HEENT: Mouth pale. No jaundice. JVD positive. HEART: Totally irregular. LUNGS: Fine crackles bilaterally. ABDOMEN: Soft, nontender. Bowel sounds are present. No hepatosplenomegaly. EXTREMITIES: Legs, edema trace. LABORATORY INVESTIGATIONS: Initial CBC showed WBC 19, hematocrit 20, hemoglobin of 5, and platelets of 153. After he got transfusion, his hemoglobin improving to 11, hematocrit of 35, and white count was coming down to 13. Also his kidney function initially was 2.8, now it is 1.7, improving after transfusion. Current BMP showing 138 sodium, potassium 4.1, chloride 103, bicarb 27, BUN 38, creatinine 1.8, glucose 84. ASSESSMENT AND PLAN: This is a 70-year-old male, history of chronic persistent atrial fibrillation, nonischemic cardiomyopathy, possibly due to alcohol, atrial fibrillation tachycardia induced, with hypertension, significant chronic obstructive pulmonary disease, O2 dependent, former smoker, alcoholic abuse, history of chronic kidney disease, who presented to the hospital with profound anemia, possibly from gastrointestinal bleeding and planning for scope. The upper endoscopy seemed to be low risk, and due to the urgent nature of the bleeding, I would recommend to go ahead and proceed with the procedure. His heart rate seemed to be well controlled in the range of 90 to 100, and I agree with the team to hold the Eliquis and aspirin, and maybe we can just stop the aspirin. We could probably consider decreasing the doses of the Eliquis. The other option that we could consider is Watchman procedure, if he is deemed to be high risk for bleeding. Otherwise, I will change his metoprolol back to the one that I prescribed to him, and he should be on the metoprolol, not the Coreg for the heart rate control. GUANACO TEJADA /[id number]
[2020-08-14] MEDS: Tiotropium Inhaler 18 MCG Inhalation Powder Cap Kit of 5 INH SCH (09:51)
[2020-08-14] MEDS: Fluticasone/Salmeterol 250-50 MCG Inhalation Powder 14/Diskus INH SCH (09:51)
[2020-08-14] MEDS: Carvedilol 6.25 MG Tab PO SCH (10:43)
[2020-08-14] MEDS: atorvaSTATin 20 MG Tab PO SCH (10:45)
--- NOTE | 2020-08-14 11:06 | PCM.SURGPN ---
- General Info Date of Service: 08/14/20 Functional Status: Reports: Pain Controlled (BM yesterday, no blood) - Patient Data Vitals - Most Recent: Last Vital Signs Temp 97.4 F 08/14/20 07:07 Pulse 62 08/14/20 10:43 Resp 17 08/14/20 07:07 BP 141/80 H 08/14/20 10:43 Pulse Ox 98 08/14/20 07:49 Weight - Most Recent: 222 lb 7.143 oz I&O - Last 24 Hours: Intake & Output 08/13/20 08/14/20 08/14/20 22:59 06:59 14:59 Intake Total 0 600 Output Total 1550 500 Balance -1550 100 Lab Results Last 24 Hrs: Laboratory Results - last 24 hr 08/10/20 08/14/20 08/14/20 Range/Units 21:35 05:17 05:17 WBC 9.33 (4.0-11.0) K/uL RBC 4.84 (4.50-5.90) M/uL Hgb 11.7 L (13.0-17.0) g/dL Hct 38.7 (38.0-50.0) % MCV 80.0 (80.0-98.0) fL MCH 24.2 L (27.0-32.0) pg MCHC 30.2 L (31.0-37.0) g/dL RDW Std Deviation 64.1 H (28.0-62.0) fl RDW Coeff of Jeannie 23 H (11.0-15.0) % Plt Count 116 L (150-400) K/uL Neut % (Auto) 63.3 (48.0-80.0) % Lymph % (Auto) 15.6 L (16.0-40.0) % Mckinley % (Auto) 16.1 H (0.0-15.0) % Eos % (Auto) 4.5 (0.0-7.0) % Baso % (Auto) 0.5 (0.0-1.5) % Neut # (Auto) 5.9 H (1.4-5.7) K/uL Lymph # (Auto) 1.5 (0.6-2.4) K/uL Mckinley # (Auto) 1.5 H (0.0-0.8) K/uL Eos # (Auto) 0.4 (0.0-0.7) K/uL Baso # (Auto) 0.1 (0.0-0.1) K/uL Nucleated RBC % 0.0 /100WBC Nucleated RBCs # 0 K/uL Sodium 140 (136-148) mmol/L Potassium 4.9 (3.5-5.1) mmol/L Chloride 104 (98-107) mmol/L Carbon Dioxide 29.7 (21.0-32.0) mmol/L BUN 35 H (7.0-18.0) mg/dL Creatinine 1.7 H (0.8-1.3) mg/dL Est Cr Clr Drug Dosing 43.11 mL/min Estimated GFR (MDRD) 39.8 ml/min Glucose 82 (74-106) mg/dL Calcium 8.5 (8.5-10.1) mg/dL Crossmatch See Detail Lebron Results Last 24 Hrs: Microbiology 08/10/20 18:54 Aerobic Blood Culture - Preliminary Blood - Venous - Lab Draw NO GROWTH AFTER 3 DAYS Anaerobic Blood Culture - Final 08/10/20 18:42 Aerobic Blood Culture - Preliminary Blood - Venous NO GROWTH AFTER 3 DAYS Anaerobic Blood Culture - Preliminary NO GROWTH AFTER 3 DAYS 08/10/20 20:33 Urine Culture - Final Urine, Catheterized No Growth Med Orders - Current: Current Medications Albuterol (Ventolin Hfa) 1 - 2 gm INH Q4H PRN PRN Reason: Dyspnea Albuterol/Ipratropium (Duoneb 3.0-0.5 Mg/3 Ml) 3 ml NEB Q4HRRT PRN PRN Reason: Wheezing Last Admin: 08/12/20 06:09 Dose: 3 ml Documented by: Atorvastatin Calcium (Lipitor) 20 mg PO DAILY [facility] Last Admin: 08/14/20 10:45 Dose: 20 mg Documented by: Carvedilol (Coreg) 12.5 mg PO BID [facility] Last Admin: 08/14/20 10:43 Dose: 12.5 mg Documented by: Pantoprazole Sodium 40 mg/ (Sodium Chloride) 10 mls @ 300 mls/hr IV Q12H [facility] Last Admin: 08/14/20 09:50 Dose: 300 mls/hr Documented by: Pregabalin (Lyrica) 150 mg PO TID [facility] Last Admin: 08/14/20 05:47 Dose: Not Given Documented by: Fluticasone/Salmeterol (Advair Diskus 250-50) 1 puff INH BID [facility] Last Admin: 08/14/20 09:51 Dose: 1 inhalation Documented by: Sodium Chloride (Saline Flush) 10 ml FLUSH ASDIRECTED PRN PRN Reason: Keep Vein Open Last Admin: 08/10/20 18:51 Dose: 10 ml Documented by: Sodium Chloride (Saline Flush) 2.5 ml FLUSH ASDIRECTED PRN PRN Reason: Keep Vein Open Last Admin: 08/10/20 18:50 Dose: 2.5 ml Documented by: Tiotropium [place] (Spiriva Handihaler) 18 mcg INH DAILY [facility] Last Admin: 08/14/20 09:51 Dose: 18 mcg Documented by: Discontinued Medications Albuterol/Ipratropium (Duoneb 3.0-0.5 Mg/3 Ml) 3 ml NEB ONETIME ONE Stop: 08/10/20 17:40 Last Admin: 08/10/20 18:02 Dose: 3 ml Documented by: Amiodarone HCl (Cordarone) 400 mg PO DAILY [facility] Last Admin: 08/13/20 08:45 Dose: 400 mg Documented by: Furosemide (Lasix) 40 mg IVPUSH NOW ONE Stop: 08/14/20 08:12 Last Admin: 08/14/20 09:50 Dose: 40 mg Documented by: Sodium Chloride (Normal Saline) 500 mls @ 999 mls/hr IV .BOLUS [facility] Last Admin: 08/10/20 18:02 Dose: 999 mls/hr Documented by: Cefepime HCl 2 gm/ Premix 50 mls @ 100 mls/hr IV ONETIME ONE Stop: 08/10/20 19:01 Last Admin: 08/10/20 18:48 Dose: 100 mls/hr Documented by: Sodium Chloride (Normal Saline) 1,000 mls @ 125 mls/hr IV ASDIRECTED [facility] Last Admin: 08/10/20 20:34 Dose: 500 mls/hr Documented by: Pantoprazole Sodium 40 mg/ (Sodium Chloride) 10 mls @ 300 mls/hr IV ONETIME ONE Stop: 08/10/20 23:46 Last Admin: 08/11/20 00:12 Dose: 300 mls/hr Documented by: Methylprednisolone Sodium Succinate (Solu-Medrol) 125 mg IVPUSH ONETIME ONE Stop: 08/10/20 17:40 Last Admin: 08/10/20 18:48 Dose: 125 mg Documented by: - Exam GI/Abdominal Exam: Soft, Non-Tender Sepsis Event Note - Evaluation Sepsis Screening Result: No Definite Risk - Focused Exam Vital Signs: Vital Signs Temp Pulse Pulse Resp BP BP BP 08/14/20 10:43 62 141/80 H 08/14/20 10:40 141/80 H 08/14/20 07:49 08/14/20 07:07 97.4 F 60 17 129/73 08/14/20 04:00 96.8 F L 61 17 145/81 H 08/14/20 00:00 96.7 F L 59 L 18 130/71 Pulse Ox Pulse Ox 08/14/20 10:43 08/14/20 10:40 08/14/20 07:49 98 08/14/20 07:07 98 08/14/20 04:00 100 08/14/20 00:00 100 - Problem List Review Problem List Initiated/Reviewed/Updated: Yes - My Orders Last 24 Hours: Active Orders 24 hr Category Date Time Status Verify Patient Consent Obtain [RC] ASDIRECTED Care 08/14/20 05:00 Active NPO After Midnight [Nothing per Oral After Midnight Diet 08/13/20 Lunch Active Diet] [DIET] BMP [BASIC METABOLIC PANEL,BMP] [CHEM] AM Lab 08/15/20 05:11 Ordered BMP [BASIC METABOLIC PANEL,BMP] [CHEM] AM Lab 08/16/20 05:11 Ordered BMP [BASIC METABOLIC PANEL,BMP] [CHEM] AM Lab 08/17/20 05:11 Ordered CBC WITH AUTO DIFF [HEME] AM Lab 08/15/20 05:11 Ordered CBC WITH AUTO DIFF [HEME] AM Lab 08/16/20 05:11 Ordered CBC WITH AUTO DIFF [HEME] AM Lab 08/17/20 05:11 Ordered Medication Orders Albuterol (Ventolin Hfa) 1 - 2 gm INH Q4H PRN PRN Reason: Dyspnea Albuterol/Ipratropium (Duoneb 3.0-0.5 Mg/3 Ml) 3 ml NEB Q4HRRT PRN PRN Reason: Wheezing Last Admin: 08/12/20 06:09 Dose: 3 ml Documented by: Admin: 08/11/20 09:36 Dose: 3 ml Documented by: KATHI Atorvastatin Calcium (Lipitor) 20 mg PO DAILY [facility] Admin: 08/14/20 10:45 Dose: 20 mg Documented by: COREY Cosigned by: BYRON Admin: 08/13/20 08:45 Dose: 20 mg Documented by: Admin: 08/12/20 08:42 Dose: 20 mg Documented by: LOIS Carvedilol (Coreg) 12.5 mg PO BID [facility] Admin: 08/14/20 10:43 Dose: 12.5 mg Documented by: COREY Cosigned by: BYRON Admin: 08/13/20 21:25 Dose: 12.5 mg Documented by: Admin: 08/13/20 08:45 Dose: 12.5 mg Documented by: Admin: 08/12/20 21:47 Dose: 12.5 mg Documented by: Admin: 08/12/20 08:42 Dose: 12.5 mg Documented by: Admin: 08/11/20 21:25 Dose: 12.5 mg Documented by: MANGO Pantoprazole Sodium 40 mg/ (Sodium Chloride) 10 mls @ 300 mls/hr IV Q12H [facility] Admin: 08/14/20 09:50 Dose: 300 mls/hr Documented by: Infusion: 08/13/20 21:28 Dose: 300 mls/hr Documented by: Admin: 08/13/20 21:26 Dose: 300 mls/hr Documented by: Infusion: 08/13/20 08:45 Dose: 300 mls/hr Documented by: Admin: 08/13/20 08:43 Dose: 300 mls/hr Documented by: Infusion: 08/12/20 23:16 Dose: 300 mls/hr Documented by: Admin: 08/12/20 23:14 Dose: 300 mls/hr Documented by: Infusion: 08/12/20 08:45 Dose: 300 mls/hr Documented by: Admin: 08/12/20 08:43 Dose: 300 mls/hr Documented by: Infusion: 08/11/20 21:27 Dose: 300 mls/hr Documented by: Admin: 08/11/20 21:25 Dose: 300 mls/hr Documented by: Infusion: 08/11/20 09:15 Dose: 300 mls/hr Documented by: Admin: 08/11/20 09:13 Dose: 300 mls/hr Documented by: ROBBY Pregabalin (Lyrica) 150 mg PO TID [facility] Last Admin: 08/14/20 05:47 Dose: Not Given Documented by: Admin: 08/13/20 21:33 Dose: 150 mg Documented by: Admin: 08/13/20 14:56 Dose: 150 mg Documented by: Admin: 08/13/20 06:35 Dose: 150 mg Documented by: Admin: 08/12/20 23:28 Dose: 150 mg Documented by: Admin: 08/12/20 13:20 Dose: 150 mg Documented by: Admin: 08/12/20 05:05 Dose: 150 mg Documented by: Admin: 08/11/20 21:24 Dose: 150 mg Documented by: Admin: 08/11/20 14:06 Dose: 150 mg Documented by: ROBBY Fluticasone/Salmeterol (Advair Diskus 250-50) 1 puff INH BID [facility] Last Admin: 08/14/20 09:51 Dose: 1 inhalation Documented by: Admin: 08/13/20 21:27 Dose: 1 inhalation Documented by: Admin: 08/13/20 08:35 Dose: 1 inhalation Documented by: Admin: 08/12/20 20:23 Dose: 1 inhalation Documented by: Admin: 08/12/20 08:40 Dose: 1 inhalation Documented by: Admin: 08/11/20 22:12 Dose: 1 inhalation Documented by: Admin: 08/11/20 10:00 Dose: 1 inhalation Documented by: KATHI Sodium Chloride (Saline Flush) 10 ml FLUSH ASDIRECTED PRN PRN Reason: Keep Vein Open Last Admin: 08/10/20 18:51 Dose: 10 ml Documented by: MORGAN Sodium Chloride (Saline Flush) 2.5 ml FLUSH ASDIRECTED PRN PRN Reason: Keep Vein Open Last Admin: 08/10/20 18:50 Dose: 2.5 ml Documented by: MORGAN Tiotropium [place] (Spiriva Handihaler) 18 mcg INH DAILY [facility] Last Admin: 08/14/20 09:51 Dose: 18 mcg Documented by: Admin: 08/13/20 08:34 Dose: 18 mcg Documented by: Admin: 08/12/20 08:42 Dose: 18 mcg Documented by: Admin: 08/11/20 09:56 Dose: 18 mcg Documented by: KATHI - Assessment Assessment (Free Text/Narrative):: Thanks for supervisor blasting input, low risks for egd; however, there is no hard symptoms of active bleeding; h/h remained stable X 48 hours; would start po diet and home if continue to do well; fu w fl 1 - 2wk for possible endoscope study consult if the need arise. thanks for the consult and care of this pleasant patient
--- NOTE | 2020-08-14 12:26 | PCM.PN ---
<Peter Wilkinson - Last Filed: 08/14/20 12:20> - General Info Date of Service: 08/14/20 Subjective Update: Bedside :no acute concerns at bedside from patient - Review of Systems General: Reports: No Symptoms HEENT: Reports: No Symptoms Pulmonary: Reports: No Symptoms Gastrointestinal: Reports: No Symptoms Genitourinary: Reports: No Symptoms Musculoskeletal: Reports: No Symptoms Skin: Reports: No Symptoms - Patient Data Vitals - Most Recent: Last Vital Signs Temp 97.4 F 08/14/20 11:31 Pulse 74 08/14/20 11:31 Resp 18 08/14/20 11:31 BP 130/69 08/14/20 11:31 Pulse Ox 90 L 08/14/20 11:31 Weight - Most Recent: 100.9 kg I&O - Last 24 Hours: Intake & Output 08/13/20 08/14/20 08/14/20 22:59 06:59 14:59 Intake Total 0 600 Output Total 1550 500 Balance -1550 100 Lab Results Last 24 Hours: Laboratory Results - last 24 hr 08/10/20 08/14/20 08/14/20 Range/Units 21:35 05:17 05:17 WBC 9.33 (4.0-11.0) K/uL RBC 4.84 (4.50-5.90) M/uL Hgb 11.7 L (13.0-17.0) g/dL Hct 38.7 (38.0-50.0) % MCV 80.0 (80.0-98.0) fL MCH 24.2 L (27.0-32.0) pg MCHC 30.2 L (31.0-37.0) g/dL RDW Std Deviation 64.1 H (28.0-62.0) fl RDW Coeff of Jeannie 23 H (11.0-15.0) % Plt Count 116 L (150-400) K/uL Neut % (Auto) 63.3 (48.0-80.0) % Lymph % (Auto) 15.6 L (16.0-40.0) % [place] % (Auto) 16.1 H (0.0-15.0) % Eos % (Auto) 4.5 (0.0-7.0) % Baso % (Auto) 0.5 (0.0-1.5) % Neut # (Auto) 5.9 H (1.4-5.7) K/uL Lymph # (Auto) 1.5 (0.6-2.4) K/uL [place] # (Auto) 1.5 H (0.0-0.8) K/uL Eos # (Auto) 0.4 (0.0-0.7) K/uL Baso # (Auto) 0.1 (0.0-0.1) K/uL Nucleated RBC % 0.0 /100WBC Nucleated RBCs # 0 K/uL Sodium 140 (136-148) mmol/L Potassium 4.9 (3.5-5.1) mmol/L Chloride 104 (98-107) mmol/L Carbon Dioxide 29.7 (21.0-32.0) mmol/L BUN 35 H (7.0-18.0) mg/dL Creatinine 1.7 H (0.8-1.3) mg/dL Est Cr Clr Drug Dosing 43.11 mL/min Estimated GFR (MDRD) 39.8 ml/min Glucose 82 (74-106) mg/dL Calcium 8.5 (8.5-10.1) mg/dL Crossmatch See Detail [place] Results Last 24 Hours: Microbiology 08/10/20 18:54 Aerobic Blood Culture - Preliminary Blood - Venous - Lab Draw NO GROWTH AFTER 3 DAYS Anaerobic Blood Culture - Final 08/10/20 18:42 Aerobic Blood Culture - Preliminary Blood - Venous NO GROWTH AFTER 3 DAYS Anaerobic Blood Culture - Preliminary NO GROWTH AFTER 3 DAYS 08/10/20 20:33 Urine Culture - Final Urine, Catheterized No Growth Med Orders - Current: Current Medications Albuterol (Ventolin Hfa) 1 - 2 gm INH Q4H PRN PRN Reason: Dyspnea Albuterol/Ipratropium (Duoneb 3.0-0.5 Mg/3 Ml) 3 ml NEB Q4HRRT PRN PRN Reason: Wheezing Last Admin: 08/12/20 06:09 Dose: 3 ml Documented by: Atorvastatin Calcium (Lipitor) 20 mg PO DAILY [facility] Last Admin: 08/14/20 10:45 Dose: 20 mg Documented by: Carvedilol (Coreg) 12.5 mg PO BID [facility] Last Admin: 08/14/20 10:43 Dose: 12.5 mg Documented by: Pantoprazole Sodium 40 mg/ (Sodium Chloride) 10 mls @ 300 mls/hr IV Q12H [facility] Last Admin: 08/14/20 09:50 Dose: 300 mls/hr Documented by: Pregabalin (Lyrica) 150 mg PO TID [facility] Last Admin: 08/14/20 05:47 Dose: Not Given Documented by: Fluticasone/Salmeterol (Advair Diskus 250-50) 1 puff INH BID [facility] Last Admin: 08/14/20 09:51 Dose: 1 inhalation Documented by: Sodium Chloride (Saline Flush) 10 ml FLUSH ASDIRECTED PRN PRN Reason: Keep Vein Open Last Admin: 08/10/20 18:51 Dose: 10 ml Documented by: Sodium Chloride (Saline Flush) 2.5 ml FLUSH ASDIRECTED PRN PRN Reason: Keep Vein Open Last Admin: 08/10/20 18:50 Dose: 2.5 ml Documented by: Tiotropium [place] (Spiriva Handihaler) 18 mcg INH DAILY [facility] Last Admin: 08/14/20 09:51 Dose: 18 mcg Documented by: Discontinued Medications Albuterol/Ipratropium (Duoneb 3.0-0.5 Mg/3 Ml) 3 ml NEB ONETIME ONE Stop: 08/10/20 17:40 Last Admin: 08/10/20 18:02 Dose: 3 ml Documented by: Amiodarone HCl (Cordarone) 400 mg PO DAILY [facility] Last Admin: 08/13/20 08:45 Dose: 400 mg Documented by: Furosemide (Lasix) 40 mg IVPUSH NOW ONE Stop: 08/14/20 08:12 Last Admin: 08/14/20 09:50 Dose: 40 mg Documented by: Sodium Chloride (Normal Saline) 500 mls @ 999 mls/hr IV .BOLUS [facility] Last Admin: 08/10/20 18:02 Dose: 999 mls/hr Documented by: Cefepime HCl 2 gm/ Premix 50 mls @ 100 mls/hr IV ONETIME ONE Stop: 08/10/20 19:01 Last Admin: 08/10/20 18:48 Dose: 100 mls/hr Documented by: Sodium Chloride (Normal Saline) 1,000 mls @ 125 mls/hr IV ASDIRECTED [facility] Last Admin: 08/10/20 20:34 Dose: 500 mls/hr Documented by: Pantoprazole Sodium 40 mg/ (Sodium Chloride) 10 mls @ 300 mls/hr IV ONETIME ONE Stop: 08/10/20 23:46 Last Admin: 08/11/20 00:12 Dose: 300 mls/hr Documented by: Methylprednisolone Sodium Succinate (Solu-Medrol) 125 mg IVPUSH ONETIME ONE Stop: 08/10/20 17:40 Last Admin: 08/10/20 18:48 Dose: 125 mg Documented by: - Exam Quality Assessment: Supplemental Oxygen General: Alert, Oriented, Cooperative, No Acute Distress HEENT: EOMI Neck: Supple Lungs: Clear to Auscultation, Normal Respiratory Effort Cardiovascular: Regular Rate, Irregular Rhythm GI/Abdominal Exam: Soft, Non-Tender Extremities: Normal Inspection Skin: Warm Psy/Mental Status: Alert, Normal Mood Sepsis Event Note - Evaluation Sepsis Screening Result: No Definite Risk - Focused Exam Vital Signs: Vital Signs Temp Pulse Pulse Resp BP BP BP 08/14/20 11:31 97.4 F 74 18 130/69 08/14/20 10:43 62 141/80 H 08/14/20 10:40 141/80 H 08/14/20 07:49 08/14/20 07:07 97.4 F 60 17 129/73 08/14/20 04:00 96.8 F L 61 17 145/81 H Pulse Ox Pulse Ox 08/14/20 11:31 90 L 08/14/20 10:43 08/14/20 10:40 08/14/20 07:49 98 08/14/20 07:07 98 08/14/20 04:00 100 - Problem List Review Problem List Initiated/Reviewed/Updated: Yes - My Orders Last 24 Hours: My Active Orders 08/14/20 11:04 Consult to Physical Therapy [PT Evaluation and Treatment] [CONS] Routine 08/15/20 05:11 BMP [BASIC METABOLIC PANEL,BMP] [CHEM] AM CBC WITH AUTO DIFF [HEME] AM 08/16/20 05:11 BMP [BASIC METABOLIC PANEL,BMP] [CHEM] AM CBC WITH AUTO DIFF [HEME] AM 08/17/20 05:11 BMP [BASIC METABOLIC PANEL,BMP] [CHEM] AM CBC WITH AUTO DIFF [HEME] AM - Plan Plan:: 70 yo male admitted with generalized weakness, anemia and leukocytosis Plan Full code Plan: Discussed case with General surgery; recommending outpatient follow up as bleeding concern has reduced dramatically w. increasing Hgb w.o blood products in 24 hours Will continue with recommendation to hold ASA at discharge, 1/2 dose of Eliquis daily and continue to monitor pt/ot consulted: mentions stable with ambulating w. cane/walker, pt prefers walker, Leukocytosis resolved and bcx negative Discussed case with POA, , understands plan regarding blood thinner; mentions metoprolol medication was not helpful in past and will discuss rate control medication with outpatient PCP; willl continue with our specialist recommendations at discharge; POA understands COPD: duonebs prn <Nuha Delgado - Last Filed: 08/15/20 13:48> - Patient Data Vitals - Most Recent: Last Vital Signs Temp 36.2 C 08/14/20 16:00 Pulse 68 08/14/20 16:00 Resp 20 08/14/20 16:00 BP 138/72 08/14/20 16:00 Pulse Ox 91 L 08/14/20 16:00 [place] Results Last 24 Hours: Microbiology 08/10/20 18:54 Aerobic Blood Culture - Preliminary Blood - Venous - Lab Draw NO GROWTH AFTER 4 DAYS Anaerobic Blood Culture - Final 08/10/20 18:42 Aerobic Blood Culture - Preliminary Blood - Venous NO GROWTH AFTER 4 DAYS Anaerobic Blood Culture - Preliminary NO GROWTH AFTER 4 DAYS Med Orders - Current: Current Medications Discontinued Medications Albuterol (Ventolin Hfa) 1 - 2 gm INH Q4H PRN PRN Reason: Dyspnea Albuterol/Ipratropium (Duoneb 3.0-0.5 Mg/3 Ml) 3 ml NEB ONETIME ONE Stop: 08/10/20 17:40 Last Admin: 08/10/20 18:02 Dose: 3 ml Documented by: Albuterol/Ipratropium (Duoneb 3.0-0.5 Mg/3 Ml) 3 ml NEB Q4HRRT PRN PRN Reason: Wheezing Last Admin: 08/12/20 06:09 Dose: 3 ml Documented by: Amiodarone HCl (Cordarone) 400 mg PO DAILY [facility] Last Admin: 08/13/20 08:45 Dose: 400 mg Documented by: Atorvastatin Calcium (Lipitor) 20 mg PO DAILY [facility] Last Admin: 08/14/20 10:45 Dose: 20 mg Documented by: Carvedilol (Coreg) 12.5 mg PO BID [facility] Last Admin: 08/14/20 10:43 Dose: 12.5 mg Documented by: Furosemide (Lasix) 40 mg IVPUSH NOW ONE Stop: 08/14/20 08:12 Last Admin: 08/14/20 09:50 Dose: 40 mg Documented by: Sodium Chloride (Normal Saline) 500 mls @ 999 mls/hr IV .BOLUS [facility] Last Admin: 08/10/20 18:02 Dose: 999 mls/hr Documented by: Cefepime HCl 2 gm/ Premix 50 mls @ 100 mls/hr IV ONETIME ONE Stop: 08/10/20 19:01 Last Admin: 08/10/20 18:48 Dose: 100 mls/hr Documented by: Sodium Chloride (Normal Saline) 1,000 mls @ 125 mls/hr IV ASDIRECTED [facility] Last Admin: 08/10/20 20:34 Dose: 500 mls/hr Documented by: Pantoprazole Sodium 40 mg/ (Sodium Chloride) 10 mls @ 300 mls/hr IV Q12H [facility] Last Admin: 08/14/20 09:50 Dose: 300 mls/hr Documented by: Pantoprazole Sodium 40 mg/ (Sodium Chloride) 10 mls @ 300 mls/hr IV ONETIME ONE Stop: 08/10/20 23:46 Last Admin: 08/11/20 00:12 Dose: 300 mls/hr Documented by: Methylprednisolone Sodium Succinate (Solu-Medrol) 125 mg IVPUSH ONETIME ONE Stop: 08/10/20 17:40 Last Admin: 08/10/20 18:48 Dose: 125 mg Documented by: Pregabalin (Lyrica) 150 mg PO TID [facility] Last Admin: 08/14/20 14:14 Dose: 150 mg Documented by: Fluticasone/Salmeterol (Advair Diskus 250-50) 1 puff INH BID [facility] Last Admin: 08/14/20 09:51 Dose: 1 inhalation Documented by: Sodium Chloride (Saline Flush) 10 ml FLUSH ASDIRECTED PRN PRN Reason: Keep Vein Open Last Admin: 08/10/20 18:51 Dose: 10 ml Documented by: Sodium Chloride (Saline Flush) 2.5 ml FLUSH ASDIRECTED PRN PRN Reason: Keep Vein Open Last Admin: 08/10/20 18:50 Dose: 2.5 ml Documented by: Tiotropium [place] (Spiriva Handihaler) 18 mcg INH DAILY [facility] Last Admin: 08/14/20 09:51 Dose: 18 mcg Documented by: - Plan Plan:: I have seen and evaluated the patient and agree with the residents note unless specified in my note
--- NOTE | 2020-08-14 15:46 | PCM.DCSUM1 ---
<Peter Wilkinson - Last Filed: 08/14/20 16:27> Discharge Summary - Hospital Course Free Text/Narrative:: 70 yo male with pmh of a.fib on anticoagulation, COPD, recurrent klebsiella UTI and c.diff infection who presents complaint of shortness of breath and generalized weakness. Patient is a poor historian only reports to me a concern of multiple falls at home. In the ED he was noted to leukocytosis of 19,000 and Hgb of 5.8. Patient denies any fevers, blood in stool, cough or abdominal pain. CXR and UA were clear. Patient received solumedrol and Cefepime in the ED. Hospital course: During stay patient Hgb responded well to PRBC transfusion. Total transfusion of 5 units given with final Hgb of 11.7 achieved. No occult bleeding noted however concerns about GI bleed prompted a consultation to our on-call general surgeon; who recommended the transfuse to 11 of Hgb. pt tolerated this w.o issues. ASA + Eliquis was held. On-call Cardiology was also consulted for general surgery clearance; recommended discontinuation of his of his Coreg and continue metoprolol for rate control; pt however was not sent for EGD as patient had responded more than adequately to the blood products. Anesthesia+surgery recommended outpatient follow up for EGD+colonoscopy. Discussed care with , POA, advised to hold ASA. Advised to go down to once daily dosing of Eliquis and a new prescription of pantoprazole 40 mg bid was given. Pt/ot evaluated pt. and mentioned pt is at his baseline and can ambulate with aid of walker/cane Also advised POA regarding medication changers per our Cardiology referral; pt however would like to avoid Metoprolol and will talk about rate control regimen with pt. PCP; provided our cardiology recommendations; POA understood Pt. otherwise was stable throughout stay; did have some hallucinatory episodes, which POA states is not new and is being currently worked up for possible Lewy body dementia. hallucinatory episodes were less frequent throughout stay however. WBC on admission was 19; however no source of infection was discovered (negative Ucx, Bcx); and no obvious signs of infection appreciated; s/p 5 units PRBC WBC count did resolve and it was determined this was most likely an acute reaction pt. requested discharge. Discharged in stable condition Discussed care plan with POA who understood and agreed Discharged home with follow up with both PCP and Outpatient General surgery . - Discharge Data Discharge Date: 08/14/20 Discharge Disposition: Home, Self-Care 01 Condition: Poor - Referral to Home Health Primary Care Physician: Antonio Arias MD - Patient Summary/Data Consults: Consultations 08/13/20 09:56 Consult to Physician [CONS] Urgent 08/14/20 11:04 Consult to Physical Therapy [PT Evaluation and Treatment] [CONS] Routine - Patient Instructions Diet: Low Sodium Fluid Restriction: 1500 mL Driving: Do Not Drive Notify Provider of: Fever, Nausea and/or Vomiting - Discharge Plan *PRESCRIPTION DRUG MONITORING PROGRAM REVIEWED*: No *COPY OF PRESCRIPTION DRUG MONITORING REPORT IN PATIENT JENNIE: No Prescriptions/Med Rec: Apixaban [Eliquis] 5 mg PO DAILY 30 Days #30 tablet Pantoprazole [ProTONIX] 40 mg PO BID 7 Days #14 tab.cr Home Medications: Home Meds Fluticasone/Salmeterol [Advair Diskus 250-50] 1 puff INH BID 04/21/17 [History] atorvaSTATin [Lipitor] 20 mg PO DAILY 11/24/17 [History] Folic Acid 1 mg PO DAILY 08/21/18 [History] Furosemide [Lasix] 20 mg PO DAILY 07/20/19 [History] Potassium Chloride [Klor-Con M20] 20 meq PO DAILY 07/20/19 [History] Albuterol [Proair HFA] 1 - 2 puff INH Q4H PRN 08/10/20 [History] Albuterol/Ipratropium [DuoNeb 3.0-0.5 MG/3 ML] 1 dose INH QID PRN 08/10/20 [History] Famotidine [Pepcid] 20 mg PO BID 08/10/20 [History] Pregabalin [Lyrica] 150 mg PO TID 08/10/20 [History] Tiotropium [Spiriva HandiHaler] 1 dose INH DAILY 08/10/20 [History] Metoprolol Tartrate 50 mg PO TID 08/11/20 [History] metOLazone [Metolazone] 5 mg PO DAILY 08/11/20 [History] Apixaban [Eliquis] 5 mg PO DAILY 30 Days #30 tablet 08/14/20 [Rx] Pantoprazole [ProTONIX] 40 mg PO BID 7 Days #14 tab.cr 08/14/20 [Rx] Patient Handouts: Anemia, Hypotension, [id number], Pantoprazole tablets, Apixaban oral tablets Referrals: Antonio Arias MD [Primary Care Provider] - 08/21/20 10:15 am - Discharge Summary/Plan Comment DC Time >30 min.: No - Patient Data Vitals - Most Recent: Last Vital Signs Temp 97.4 F 08/14/20 11:31 Pulse 74 08/14/20 11:31 Resp 18 08/14/20 11:31 BP 130/69 08/14/20 11:31 Pulse Ox 90 L 08/14/20 11:31 Weight - Most Recent: 100.9 kg I&O - Last 24 hours: Intake & Output 08/14/20 08/14/20 08/14/20 06:59 14:59 22:59 Intake Total 600 Output Total 500 Balance 100 Lab Results - Last 24 hrs: Laboratory Results - last 24 hr 08/10/20 08/14/20 08/14/20 Range/Units 21:35 05:17 05:17 WBC 9.33 (4.0-11.0) K/uL RBC 4.84 (4.50-5.90) M/uL Hgb 11.7 L (13.0-17.0) g/dL Hct 38.7 (38.0-50.0) % MCV 80.0 (80.0-98.0) fL MCH 24.2 L (27.0-32.0) pg MCHC 30.2 L (31.0-37.0) g/dL RDW Std Deviation 64.1 H (28.0-62.0) fl RDW Coeff of Jeannie 23 H (11.0-15.0) % Plt Count 116 L (150-400) K/uL Neut % (Auto) 63.3 (48.0-80.0) % Lymph % (Auto) 15.6 L (16.0-40.0) % [place] % (Auto) 16.1 H (0.0-15.0) % Eos % (Auto) 4.5 (0.0-7.0) % Baso % (Auto) 0.5 (0.0-1.5) % Neut # (Auto) 5.9 H (1.4-5.7) K/uL Lymph # (Auto) 1.5 (0.6-2.4) K/uL [place] # (Auto) 1.5 H (0.0-0.8) K/uL Eos # (Auto) 0.4 (0.0-0.7) K/uL Baso # (Auto) 0.1 (0.0-0.1) K/uL Nucleated RBC % 0.0 /100WBC Nucleated RBCs # 0 K/uL Sodium 140 (136-148) mmol/L Potassium 4.9 (3.5-5.1) mmol/L Chloride 104 (98-107) mmol/L Carbon Dioxide 29.7 (21.0-32.0) mmol/L BUN 35 H (7.0-18.0) mg/dL Creatinine 1.7 H (0.8-1.3) mg/dL Est Cr Clr Drug Dosing 43.11 mL/min Estimated GFR (MDRD) 39.8 ml/min Glucose 82 (74-106) mg/dL Calcium 8.5 (8.5-10.1) mg/dL Crossmatch See Detail AGNES Results - Last 24 hrs: Microbiology 08/10/20 18:54 Aerobic Blood Culture - Preliminary Blood - Venous - Lab Draw NO GROWTH AFTER 3 DAYS Anaerobic Blood Culture - Final 08/10/20 18:42 Aerobic Blood Culture - Preliminary Blood - Venous NO GROWTH AFTER 3 DAYS Anaerobic Blood Culture - Preliminary NO GROWTH AFTER 3 DAYS Med Orders - Current: Current Medications Albuterol (Ventolin Hfa) 1 - 2 gm INH Q4H PRN PRN Reason: Dyspnea Albuterol/Ipratropium (Duoneb 3.0-0.5 Mg/3 Ml) 3 ml NEB Q4HRRT PRN PRN Reason: Wheezing Last Admin: 08/12/20 06:09 Dose: 3 ml Documented by: Atorvastatin Calcium (Lipitor) 20 mg PO DAILY [facility] Last Admin: 08/14/20 10:45 Dose: 20 mg Documented by: Carvedilol (Coreg) 12.5 mg PO BID [facility] Last Admin: 08/14/20 10:43 Dose: 12.5 mg Documented by: Pantoprazole Sodium 40 mg/ (Sodium Chloride) 10 mls @ 300 mls/hr IV Q12H [facility] Last Admin: 08/14/20 09:50 Dose: 300 mls/hr Documented by: Pregabalin (Lyrica) 150 mg PO TID [facility] Last Admin: 08/14/20 14:14 Dose: 150 mg Documented by: Fluticasone/Salmeterol (Advair Diskus 250-50) 1 puff INH BID [facility] Last Admin: 08/14/20 09:51 Dose: 1 inhalation Documented by: Sodium Chloride (Saline Flush) 10 ml FLUSH ASDIRECTED PRN PRN Reason: Keep Vein Open Last Admin: 08/10/20 18:51 Dose: 10 ml Documented by: Sodium Chloride (Saline Flush) 2.5 ml FLUSH ASDIRECTED PRN PRN Reason: Keep Vein Open Last Admin: 08/10/20 18:50 Dose: 2.5 ml Documented by: Tiotropium [place] (Spiriva Handihaler) 18 mcg INH DAILY [facility] Last Admin: 08/14/20 09:51 Dose: 18 mcg Documented by: Discontinued Medications Albuterol/Ipratropium (Duoneb 3.0-0.5 Mg/3 Ml) 3 ml NEB ONETIME ONE Stop: 08/10/20 17:40 Last Admin: 08/10/20 18:02 Dose: 3 ml Documented by: Amiodarone HCl (Cordarone) 400 mg PO DAILY [facility] Last Admin: 08/13/20 08:45 Dose: 400 mg Documented by: Furosemide (Lasix) 40 mg IVPUSH NOW ONE Stop: 08/14/20 08:12 Last Admin: 08/14/20 09:50 Dose: 40 mg Documented by: Sodium Chloride (Normal Saline) 500 mls @ 999 mls/hr IV .BOLUS [facility] Last Admin: 08/10/20 18:02 Dose: 999 mls/hr Documented by: Cefepime HCl 2 gm/ Premix 50 mls @ 100 mls/hr IV ONETIME ONE Stop: 08/10/20 19:01 Last Admin: 08/10/20 18:48 Dose: 100 mls/hr Documented by: Sodium Chloride (Normal Saline) 1,000 mls @ 125 mls/hr IV ASDIRECTED [facility] Last Admin: 08/10/20 20:34 Dose: 500 mls/hr Documented by: Pantoprazole Sodium 40 mg/ (Sodium Chloride) 10 mls @ 300 mls/hr IV ONETIME ONE Stop: 08/10/20 23:46 Last Admin: 08/11/20 00:12 Dose: 300 mls/hr Documented by: Methylprednisolone Sodium Succinate (Solu-Medrol) 125 mg IVPUSH ONETIME ONE Stop: 08/10/20 17:40 Last Admin: 08/10/20 18:48 Dose: 125 mg Documented by: <Nuha Delgado - Last Filed: 08/15/20 13:45> Discharge Summary - Hospital Course Free Text/Narrative:: I have seen and evaluated the patient and agree with the residents note unless specified in my note - Referral to Home Health Primary Care Physician: Antonio Arias MD - Patient Summary/Data Consults: Consultations 08/13/20 09:56 Consult to Physician [CONS] Urgent 08/14/20 11:04 Consult to Physical Therapy [PT Evaluation and Treatment] [CONS] Routine - Patient Data Vitals - Most Recent: Last Vital Signs Temp 36.2 C 08/14/20 16:00 Pulse 68 08/14/20 16:00 Resp 20 08/14/20 16:00 BP 138/72 08/14/20 16:00 Pulse Ox 91 L 08/14/20 16:00 AGNES Results - Last 24 hrs: Microbiology 08/10/20 18:54 Aerobic Blood Culture - Preliminary Blood - Venous - Lab Draw NO GROWTH AFTER 4 DAYS Anaerobic Blood Culture - Final 08/10/20 18:42 Aerobic Blood Culture - Preliminary Blood - Venous NO GROWTH AFTER 4 DAYS Anaerobic Blood Culture - Preliminary NO GROWTH AFTER 4 DAYS Med Orders - Current: Current Medications Discontinued Medications Albuterol (Ventolin Hfa) 1 - 2 gm INH Q4H PRN PRN Reason: Dyspnea Albuterol/Ipratropium (Duoneb 3.0-0.5 Mg/3 Ml) 3 ml NEB ONETIME ONE Stop: 08/10/20 17:40 Last Admin: 08/10/20 18:02 Dose: 3 ml Documented by: Albuterol/Ipratropium (Duoneb 3.0-0.5 Mg/3 Ml) 3 ml NEB Q4HRRT PRN PRN Reason: Wheezing Last Admin: 08/12/20 06:09 Dose: 3 ml Documented by: Amiodarone HCl (Cordarone) 400 mg PO DAILY [facility] Last Admin: 08/13/20 08:45 Dose: 400 mg Documented by: Atorvastatin Calcium (Lipitor) 20 mg PO DAILY [facility] Last Admin: 08/14/20 10:45 Dose: 20 mg Documented by: Carvedilol (Coreg) 12.5 mg PO BID [facility] Last Admin: 08/14/20 10:43 Dose: 12.5 mg Documented by: Furosemide (Lasix) 40 mg IVPUSH NOW ONE Stop: 08/14/20 08:12 Last Admin: 08/14/20 09:50 Dose: 40 mg Documented by: Sodium Chloride (Normal Saline) 500 mls @ 999 mls/hr IV .BOLUS [facility] Last Admin: 08/10/20 18:02 Dose: 999 mls/hr Documented by: Cefepime HCl 2 gm/ Premix 50 mls @ 100 mls/hr IV ONETIME ONE Stop: 08/10/20 19:01 Last Admin: 08/10/20 18:48 Dose: 100 mls/hr Documented by: Sodium Chloride (Normal Saline) 1,000 mls @ 125 mls/hr IV ASDIRECTED [facility] Last Admin: 08/10/20 20:34 Dose: 500 mls/hr Documented by: Pantoprazole Sodium 40 mg/ (Sodium Chloride) 10 mls @ 300 mls/hr IV Q12H [facility] Last Admin: 08/14/20 09:50 Dose: 300 mls/hr Documented by: Pantoprazole Sodium 40 mg/ (Sodium Chloride) 10 mls @ 300 mls/hr IV ONETIME ONE Stop: 08/10/20 23:46 Last Admin: 08/11/20 00:12 Dose: 300 mls/hr Documented by: Methylprednisolone Sodium Succinate (Solu-Medrol) 125 mg IVPUSH ONETIME ONE Stop: 08/10/20 17:40 Last Admin: 08/10/20 18:48 Dose: 125 mg Documented by: Pregabalin (Lyrica) 150 mg PO TID [facility] Last Admin: 08/14/20 14:14 Dose: 150 mg Documented by: Fluticasone/Salmeterol (Advair Diskus 250-50) 1 puff INH BID [facility] Last Admin: 08/14/20 09:51 Dose: 1 inhalation Documented by: Sodium Chloride (Saline Flush) 10 ml FLUSH ASDIRECTED PRN PRN Reason: Keep Vein Open Last Admin: 08/10/20 18:51 Dose: 10 ml Documented by: Sodium Chloride (Saline Flush) 2.5 ml FLUSH ASDIRECTED PRN PRN Reason: Keep Vein Open Last Admin: 08/10/20 18:50 Dose: 2.5 ml Documented by: Tiotropium [place] (Spiriva Handihaler) 18 mcg INH DAILY [facility] Last Admin: 08/14/20 09:51 Dose: 18 mcg Documented by:
[2020-08-14 16:32] VITALS: BP 138/72; PULSE 68
== END 2020-08-14 16:24 | disposition home or self-care (01) | DRG 812 ==
LOC: MW.ED 17:24 → MW.MS 21:17
PROVIDERS: ADMIT Internal Medicine; ATTEND Internal Medicine
PROC: 30233N1 Transfusion of Nonautologous Red Blood Cells into Peripheral Vein, Percutaneous Approach (ICD-10-PCS; principal; 2020-08-10)
DX: D64.9 Anemia, unspecified (principal); R44.3 Hallucinations, unspecified; I48.20 Chronic atrial fibrillation, unspecified; I42.8 Other cardiomyopathies; K92.2 Gastrointestinal hemorrhage, unspecified; N17.9 Acute kidney failure, unspecified; I95.9 Hypotension, unspecified; D72.829 Elevated white blood cell count, unspecified; Z20.828 Contact with and (suspected) exposure to other viral communicable diseases; D63.8 Anemia in other chronic diseases classified elsewhere; I11.0 Hypertensive heart disease with heart failure; E87.6 Hypokalemia; I50.9 Heart failure, unspecified; H54.7 Unspecified visual loss; H91.8X9 Other specified hearing loss, unspecified ear; I48.91 Unspecified atrial fibrillation; I25.10 Atherosclerotic heart disease of native coronary artery without angina pectoris; E78.00 Pure hypercholesterolemia, unspecified; J44.9 Chronic obstructive pulmonary disease, unspecified; Z86.14 Personal history of Methicillin resistant Staphylococcus aureus infection; N40.0 Benign prostatic hyperplasia without lower urinary tract symptoms; G89.29 Other chronic pain; Z87.891 Personal history of nicotine dependence; M54.9 Dorsalgia, unspecified; G62.9 Polyneuropathy, unspecified; Z98.49 Cataract extraction status, unspecified eye; Z88.8 Allergy status to other drugs, medicaments and biological substances; Z79.01 Long term (current) use of anticoagulants; Z79.82 Long term (current) use of aspirin; Z99.81 Dependence on supplemental oxygen; Z79.899 Other long term (current) drug therapy; F03.90 Unspecified dementia, unspecified severity, without behavioral disturbance, psychotic disturbance, mood disturbance, and anxiety; Z87.440 Personal history of urinary (tract) infections; R53.1 Weakness
CPT/HCPCS: 36415; 51702; 71045; 80053; 81001; 83605; 83735; 83880; 84145; 84484; 85025; 87040 ×2; 87086; 93005; 94640; 96361; 96365; 96375; 99285; J0692; J2930; J7030; J7040 ×2; U0002; 36430; 70450; 70450-26; 71250; 71250-26; 74176; 74176-26; 80048; 82728; 82977; 83550; 85014; 85018; 85045; 85610; 86850; 86900; 86901; 86920; 86921; 86922; 97161-GP; A9270-GY; C9113; J1940; J7050; J7620-GY; P9016